=== PATIENT | male | born 1960 | race Caucasian/White ===

== ENCOUNTER → 2018-01-20 11:01 | Outpatient (CLI) | payer MEDICARE, MEDICAID, SELFPAY ==
[2018-01-20 11:34] LABS: Abs Immature Grans 0.06 k/cumm (0.0-0.09); Absolute Basophil Count 0.02 k/cumm (0.0-0.2); Absolute Eosinophil Count 0.53 k/cumm (0.0-0.7); Absolute Lymphocyte Count 3.17 k/cumm (1.2-3.4); Basophils % 0.2; Eosinophils % 6.5; HCT 49.5 % (40.0-50.0); HGB 16.5 g/dL (13.5-17.5); Immature Grans % 0.7; Lymphocytes % 38.8; Mean Corp. HGB Concentration 33.3 g/dL (32.0-36.0); Mean Corpuscular Hemoglobin 30.7 pg (27.0-33.0); Mean Corpuscular Volume 92.2 fL (80-95); Mean Platelet Volume 11.4 fL (8.0-11.0); Monocytes % 8.6; Neutrophils % 45.2; Platelet Count 180 x1000/uL (130-400); RBC 5.37 m/cumm (4.50-6.00); RBC Distribution Width 13.4 % (11.8-14.1); White Blood Cell Count 8.18 k/cumm (4.4-10.8)
== END ==
PROVIDERS: PCP Family Medicine; Visit Provider Nurse Practitioner Psychiatric/Mental Health
DX: F25.0 Schizoaffective disorder, bipolar type (principal); Z79.899 Other long term (current) drug therapy
CPT/HCPCS: 36415; 85025

== ENCOUNTER 2018-02-16 11:15 | Outpatient (CLI) | payer MEDICARE, MEDICAID, SELFPAY ==
[2018-02-16 11:35] LABS: Abs Immature Grans 0.03 k/cumm (0.0-0.09); Absolute Basophil Count 0.03 k/cumm (0.0-0.2); Absolute Eosinophil Count 0.48 k/cumm (0.0-0.7); Absolute Lymphocyte Count 2.72 k/cumm (1.2-3.4); Absolute Monocyte Count 0.62 k/cumm (0.11-0.7); Absolute Neutrophil Count 5.34 k/cumm (1.2-6.7); Basophils % 0.3; Eosinophils % 5.2; HCT 49.2 % (40.0-50.0); HGB 16.6 g/dL (13.5-17.5); Immature Grans % 0.3; Lymphocytes % 29.5; Mean Corp. HGB Concentration 33.7 g/dL (32.0-36.0); Mean Corpuscular Hemoglobin 31.6 pg (27.0-33.0); Mean Corpuscular Volume 93.5 fL (80-95); Mean Platelet Volume 11.5 fL (8.0-11.0); Monocytes % 6.7; Platelet Count 164 x1000/uL (130-400); RBC 5.26 m/cumm (4.50-6.00); RBC Distribution Width 13.6 % (11.8-14.1); White Blood Cell Count 9.22 k/cumm (4.4-10.8)
== END 2018-02-16 11:35 ==
PROVIDERS: PCP Family Medicine; Visit Provider Nurse Practitioner Psychiatric/Mental Health
DX: F25.0 Schizoaffective disorder, bipolar type (principal); Z79.899 Other long term (current) drug therapy
CPT/HCPCS: 36415; 85025

== ENCOUNTER 2018-03-22 12:44 | Outpatient (CLI) | payer MEDICARE, MEDICAID, SELFPAY ==
[2018-03-22 13:03] LABS: Abs Immature Grans 0.07 k/cumm (0.0-0.09); Absolute Basophil Count 0.03 k/cumm (0.0-0.2); Absolute Eosinophil Count 0.29 k/cumm (0.0-0.7); Absolute Lymphocyte Count 2.62 k/cumm (1.2-3.4); Absolute Monocyte Count 0.59 k/cumm (0.11-0.7); Absolute Neutrophil Count 3.21 k/cumm (1.2-6.7); Basophils % 0.4; Eosinophils % 4.3; HCT 48.1 % (40.0-50.0); HGB 16.4 g/dL (13.5-17.5); Lymphocytes % 38.5; Mean Corp. HGB Concentration 34.1 g/dL (32.0-36.0); Mean Corpuscular Volume 93.8 fL (80-95); Mean Platelet Volume 10.8 fL (8.0-11.0); Monocytes % 8.7; Neutrophils % 47.1; Platelet Count 164 x1000/uL (130-400); RBC 5.13 m/cumm (4.50-6.00); RBC Distribution Width 13.9 % (11.8-14.1); White Blood Cell Count 6.81 k/cumm (4.4-10.8)
[2018-03-22 13:19] LABS: VALPROIC ACID 71.3 ug/mL (50-100)
[2018-03-22 13:25] LABS: Hemoglobin A1C 6.3 % (4.5-6.2)
[2018-03-22 14:37] LABS: ALT 19 U/L (12-78); AST 16 U/L (15-37); Albumin 3.2 g/dL (3.4-5.0); Alkaline Phosphatase 65 U/L (46-116); Anion Gap 5.8 mmol/L (3-11); BUN 19 mg/dL (7-18); Bilirubin, Total 0.2 mg/dL (0.2-1.0); CO2 29.2 mmol/L (21.0-32.0); CREATININE 0.97 mg/dL (0.70-1.30); Calcium 8.8 mg/dL (8.5-10.1); Chloride 109 mmol/L (98-107); Cholesterol 150 mg/dL (50-200); Glucose 122 mg/dL (70-100); HDL Cholesterol 39 mg/dL (40-60); LDL CHOLESTEROL 92 mg/dL (<100); Potassium 4.4 mmol/L (3.5-5.1); Sodium 144 mmol/L (136-145); Total Protein 6.6 g/dL (6.4-8.2); Triglyceride 115 mg/dL (30-150)
== END 2018-03-22 13:04 ==
PROVIDERS: PCP Family Medicine; Visit Provider Nurse Practitioner Psychiatric/Mental Health
DX: F25.0 Schizoaffective disorder, bipolar type (principal); Z51.81 Encounter for therapeutic drug level monitoring; Z79.899 Other long term (current) drug therapy
CPT/HCPCS: 36415; 80053; 80061; 83721; 80164; 83036; 85025

== ENCOUNTER 2018-04-13 09:59 | Outpatient (CLI) | payer MEDICARE, MEDICAID, SELFPAY ==
[2018-04-13 10:23] LABS: Abs Immature Grans 0.09 k/cumm (0.0-0.09); Absolute Basophil Count 0.03 k/cumm (0.0-0.2); Absolute Eosinophil Count 0.29 k/cumm (0.0-0.7); Absolute Lymphocyte Count 3.11 k/cumm (1.2-3.4); Absolute Monocyte Count 0.82 k/cumm (0.11-0.7); Absolute Neutrophil Count 5.73 k/cumm (1.2-6.7); Basophils % 0.3; Eosinophils % 2.9; HCT 46.6 % (40.0-50.0); HGB 15.9 g/dL (13.5-17.5); Immature Grans % 0.9; Lymphocytes % 30.9; Mean Corp. HGB Concentration 34.1 g/dL (32.0-36.0); Mean Corpuscular Hemoglobin 31.8 pg (27.0-33.0); Mean Corpuscular Volume 93.2 fL (80-95); Mean Platelet Volume 11.1 fL (8.0-11.0); Monocytes % 8.1; Neutrophils % 56.9; Platelet Count 183 x1000/uL (130-400); RBC Distribution Width 13.6 % (11.8-14.1); White Blood Cell Count 10.07 k/cumm (4.4-10.8)
== END 2018-04-13 10:19 ==
PROVIDERS: PCP Family Medicine; Visit Provider Nurse Practitioner Psychiatric/Mental Health
DX: F25.0 Schizoaffective disorder, bipolar type (principal); Z79.899 Other long term (current) drug therapy
CPT/HCPCS: 36415; 85025

== ENCOUNTER 2018-05-11 13:11 | Outpatient (CLI) | payer MEDICARE, MEDICAID, SELFPAY ==
[2018-05-11 14:29] LABS: Abs Immature Grans 0.08 k/cumm (0.0-0.09); Absolute Basophil Count 0.02 k/cumm (0.0-0.2); Absolute Eosinophil Count 0.26 k/cumm (0.0-0.7); Absolute Lymphocyte Count 2.51 k/cumm (1.2-3.4); Absolute Monocyte Count 0.67 k/cumm (0.11-0.7); Absolute Neutrophil Count 4.64 k/cumm (1.2-6.7); Basophils % 0.2; Eosinophils % 3.2; HCT 47.6 % (40.0-50.0); Lymphocytes % 30.7; Mean Corp. HGB Concentration 33.6 g/dL (32.0-36.0); Mean Corpuscular Hemoglobin 31.7 pg (27.0-33.0); Mean Corpuscular Volume 94.4 fL (80-95); Mean Platelet Volume 12.1 fL (8.0-11.0); Monocytes % 8.2; Neutrophils % 56.7; Platelet Count 194 x1000/uL (130-400); RBC 5.04 m/cumm (4.50-6.00); RBC Distribution Width 13.6 % (11.8-14.1); White Blood Cell Count 8.18 k/cumm (4.4-10.8)
== END 2018-05-11 13:31 ==
PROVIDERS: PCP Family Medicine; Visit Provider Nurse Practitioner Psychiatric/Mental Health
DX: F25.0 Schizoaffective disorder, bipolar type (principal); Z79.899 Other long term (current) drug therapy
CPT/HCPCS: 36415; 85025

== ENCOUNTER 2018-06-15 13:22 | Outpatient (CLI) | payer MEDICARE, MEDICAID, SELFPAY ==
[2018-06-15 13:35] LABS: Abs Immature Grans 0.07 k/cumm (0.0-0.09); Absolute Basophil Count 0.03 k/cumm (0.0-0.2); Absolute Eosinophil Count 0.33 k/cumm (0.0-0.7); Absolute Lymphocyte Count 2.58 k/cumm (1.2-3.4); Absolute Monocyte Count 0.52 k/cumm (0.11-0.7); Absolute Neutrophil Count 3.75 k/cumm (1.2-6.7); Basophils % 0.4; Eosinophils % 4.5; Lymphocytes % 35.4; Mean Corpuscular Volume 94.2 fL (80-95); Mean Platelet Volume 11.1 fL (8.0-11.0); Monocytes % 7.1; Neutrophils % 51.6; Platelet Count 179 x1000/uL (130-400); RBC 5.31 m/cumm (4.50-6.00); RBC Distribution Width 13.1 % (11.8-14.1); White Blood Cell Count 7.28 k/cumm (4.4-10.8)
== END 2018-06-15 13:42 ==
PROVIDERS: PCP Family Medicine; Visit Provider Nurse Practitioner Psychiatric/Mental Health
DX: F25.0 Schizoaffective disorder, bipolar type (principal); Z79.899 Other long term (current) drug therapy
CPT/HCPCS: 36415; 85025

== ENCOUNTER 2018-07-19 11:26 | Outpatient (CLI) | payer MEDICARE, MEDICAID, SELFPAY ==
[2018-07-19 11:55] LABS: Abs Immature Grans 0.05 k/cumm (0.0-0.09); Absolute Basophil Count 0.03 k/cumm (0.0-0.2); Absolute Eosinophil Count 0.21 k/cumm (0.0-0.7); Absolute Lymphocyte Count 2.72 k/cumm (1.2-3.4); Absolute Monocyte Count 0.64 k/cumm (0.11-0.7); Absolute Neutrophil Count 5.31 k/cumm (1.2-6.7); Basophils % 0.3; Eosinophils % 2.3; HCT 49.9 % (40.0-50.0); HGB 16.6 g/dL (13.5-17.5); Immature Grans % 0.6; Lymphocytes % 30.4; Mean Corp. HGB Concentration 33.3 g/dL (32.0-36.0); Mean Corpuscular Hemoglobin 31.6 pg (27.0-33.0); Mean Corpuscular Volume 94.9 fL (80-95); Mean Platelet Volume 11.6 fL (8.0-11.0); Monocytes % 7.1; Neutrophils % 59.3; Platelet Count 158 x1000/uL (130-400); RBC 5.26 m/cumm (4.50-6.00); RBC Distribution Width 12.7 % (11.8-14.1); White Blood Cell Count 8.96 k/cumm (4.4-10.8)
== END 2018-07-19 11:46 ==
PROVIDERS: PCP Family Medicine; Visit Provider Nurse Practitioner Psychiatric/Mental Health
DX: F25.0 Schizoaffective disorder, bipolar type (principal); Z79.899 Other long term (current) drug therapy
CPT/HCPCS: 36415; 85025

== ENCOUNTER 2018-08-16 10:37 | Outpatient (CLI) | payer MEDICARE, MEDICAID, SELFPAY ==
[2018-08-16 11:28] LABS: Abs Immature Grans 0.07 k/cumm (0.0-0.09); Absolute Basophil Count 0.04 k/cumm (0.0-0.2); Absolute Eosinophil Count 0.35 k/cumm (0.0-0.7); Absolute Monocyte Count 0.56 k/cumm (0.11-0.7); Absolute Neutrophil Count 3.41 k/cumm (1.2-6.7); Basophils % 0.6; Eosinophils % 4.8; HCT 49.7 % (40.0-50.0); HGB 16.9 g/dL (13.5-17.5); Lymphocytes % 38.7; Mean Corpuscular Hemoglobin 31.8 pg (27.0-33.0); Mean Corpuscular Volume 93.6 fL (80-95); Mean Platelet Volume 11.5 fL (8.0-11.0); Monocytes % 7.7; Neutrophils % 47.2; Platelet Count 177 x1000/uL (130-400); RBC 5.31 m/cumm (4.50-6.00); RBC Distribution Width 12.9 % (11.8-14.1); White Blood Cell Count 7.23 k/cumm (4.4-10.8)
[2018-08-16 11:53] LABS: VALPROIC ACID 71.6 ug/mL (50-100)
== END 2018-08-16 10:57 ==
PROVIDERS: PCP Family Medicine; Visit Provider Nurse Practitioner Psychiatric/Mental Health
DX: F25.0 Schizoaffective disorder, bipolar type (principal); Z51.81 Encounter for therapeutic drug level monitoring; Z79.899 Other long term (current) drug therapy
CPT/HCPCS: 36415; 80164; 85025

== ENCOUNTER 2018-09-13 10:41 | Outpatient (CLI) | payer MEDICARE, MEDICAID, SELFPAY ==
[2018-09-13 12:16] LABS: Abs Immature Grans 0.08 k/cumm (0.0-0.09); Absolute Basophil Count 0.02 k/cumm (0.0-0.2); Absolute Eosinophil Count 0.38 k/cumm (0.0-0.7); Absolute Lymphocyte Count 2.75 k/cumm (1.2-3.4); Absolute Monocyte Count 0.85 k/cumm (0.11-0.7); Absolute Neutrophil Count 4.06 k/cumm (1.2-6.7); Basophils % 0.2; Eosinophils % 4.7; HCT 49.8 % (40.0-50.0); HGB 16.9 g/dL (13.5-17.5); Lymphocytes % 33.8; Mean Corp. HGB Concentration 33.9 g/dL (32.0-36.0); Mean Corpuscular Hemoglobin 31.4 pg (27.0-33.0); Mean Corpuscular Volume 92.4 fL (80-95); Mean Platelet Volume 12.2 fL (8.0-11.0); Monocytes % 10.4; Neutrophils % 49.9; Platelet Count 175 x1000/uL (130-400); RBC 5.39 m/cumm (4.50-6.00); RBC Distribution Width 12.7 % (11.8-14.1); White Blood Cell Count 8.14 k/cumm (4.4-10.8)
== END 2018-09-13 11:01 ==
PROVIDERS: PCP Family Medicine; Visit Provider Nurse Practitioner Psychiatric/Mental Health
DX: F25.0 Schizoaffective disorder, bipolar type (principal); Z79.899 Other long term (current) drug therapy
CPT/HCPCS: 36415; 85025

== ENCOUNTER 2018-10-19 12:54 | Outpatient (CLI) | payer MEDICARE, MEDICAID, SELFPAY ==
[2018-10-19 13:22] LABS: Abs Immature Grans 0.08 k/cumm (0.0-0.09); Absolute Basophil Count 0.03 k/cumm (0.0-0.2); Absolute Eosinophil Count 0.37 k/cumm (0.0-0.7); Absolute Lymphocyte Count 2.95 k/cumm (1.2-3.4); Absolute Monocyte Count 0.61 k/cumm (0.11-0.7); Absolute Neutrophil Count 2.89 k/cumm (1.2-6.7); Basophils % 0.4; Eosinophils % 5.3; HCT 49.5 % (40.0-50.0); Immature Grans % 1.2; Lymphocytes % 42.6; Mean Corp. HGB Concentration 34.3 g/dL (32.0-36.0); Mean Corpuscular Hemoglobin 31.7 pg (27.0-33.0); Mean Corpuscular Volume 92.4 fL (80-95); Mean Platelet Volume 11.8 fL (8.0-11.0); Monocytes % 8.8; Neutrophils % 41.7; Platelet Count 165 x1000/uL (130-400); RBC 5.36 m/cumm (4.50-6.00); RBC Distribution Width 12.6 % (11.8-14.1); White Blood Cell Count 6.93 k/cumm (4.4-10.8)
== END 2018-10-19 13:14 ==
PROVIDERS: Nurse Practitioner Psychiatric/Mental Health; PCP Family Medicine; Visit Provider Nurse Practitioner Psychiatric/Mental Health
DX: F25.0 Schizoaffective disorder, bipolar type (principal); Z79.899 Other long term (current) drug therapy
CPT/HCPCS: 36415; 85025

== ENCOUNTER 2018-12-07 09:39 | Outpatient (CLI) | payer MEDICARE, MEDICAID, SELFPAY ==
[2018-12-07 10:01] LABS: Abs Immature Grans 0.09 k/cumm (0.0-0.09); Absolute Basophil Count 0.02 k/cumm (0.0-0.2); Absolute Eosinophil Count 0.34 k/cumm (0.0-0.7); Absolute Lymphocyte Count 2.66 k/cumm (1.2-3.4); Absolute Monocyte Count 0.82 k/cumm (0.11-0.7); Absolute Neutrophil Count 3.44 k/cumm (1.2-6.7); Basophils % 0.3; Eosinophils % 4.6; HCT 49.6 % (40.0-50.0); HGB 17.6 g/dL (13.5-17.5); Immature Grans % 1.2; Lymphocytes % 36.1; Mean Corp. HGB Concentration 35.5 g/dL (32.0-36.0); Mean Corpuscular Hemoglobin 32.6 pg (27.0-33.0); Mean Corpuscular Volume 91.9 fL (80-95); Mean Platelet Volume 11.5 fL (8.0-11.0); Monocytes % 11.1; Neutrophils % 46.7; Platelet Count 171 x1000/uL (130-400); RBC Distribution Width 12.7 % (11.8-14.1); White Blood Cell Count 7.37 k/cumm (4.4-10.8)
== END 2018-12-07 09:59 ==
PROVIDERS: PCP Family Medicine; Visit Provider Nurse Practitioner Psychiatric/Mental Health
DX: F25.0 Schizoaffective disorder, bipolar type (principal); Z79.899 Other long term (current) drug therapy
CPT/HCPCS: 36415; 85025

== ENCOUNTER 2019-01-17 15:51 | Outpatient (CLI) | payer MEDICARE, MEDICAID, SELFPAY ==
[2019-01-17 16:35] LABS: Abs Immature Grans 0.08 k/cumm (0.0-0.09); Absolute Basophil Count 0.02 k/cumm (0.0-0.2); Absolute Eosinophil Count 0.24 k/cumm (0.0-0.7); Absolute Lymphocyte Count 2.58 k/cumm (1.2-3.4); Absolute Monocyte Count 0.69 k/cumm (0.11-0.7); Absolute Neutrophil Count 5.08 k/cumm (1.2-6.7); Basophils % 0.2; Eosinophils % 2.8; HCT 50.1 % (40.0-50.0); HGB 17.6 g/dL (13.5-17.5); Immature Grans % 0.9; Lymphocytes % 29.7; Mean Corp. HGB Concentration 35.1 g/dL (32.0-36.0); Mean Corpuscular Hemoglobin 31.9 pg (27.0-33.0); Mean Corpuscular Volume 90.8 fL (80-95); Mean Platelet Volume 11.6 fL (8.0-11.0); Monocytes % 7.9; Neutrophils % 58.5; Platelet Count 160 x1000/uL (130-400); RBC 5.52 m/cumm (4.50-6.00); RBC Distribution Width 12.8 % (11.8-14.1); White Blood Cell Count 8.69 k/cumm (4.4-10.8)
== END 2019-01-17 16:11 ==
PROVIDERS: PCP Family Medicine; Visit Provider Nurse Practitioner Psychiatric/Mental Health
DX: F25.0 Schizoaffective disorder, bipolar type (principal); Z79.899 Other long term (current) drug therapy
CPT/HCPCS: 36415; 85025

== ENCOUNTER 2019-02-25 15:51 | Outpatient (REF) | payer MEDICARE, MEDICAID, SELFPAY ==
[2019-02-25 19:16] LABS: TSH (W/Ref FT4) 1.35 uIU/mL (0.36-3.74)
[2019-02-25 19:17] LABS: Hemoglobin A1C 9.5 % (4.5-6.2)
[2019-02-25 19:55] LABS: COMMENT (LAB VIEW ONLY) 147.29 mg/dL; Microalb ug/mg Crea 5.8 ug/mg Cr
== END 2019-02-25 16:11 ==
LOC: NCHCN 15:51
PROVIDERS: PCP Family Medicine; Visit Provider Family Medicine
DX: E11.9 Type 2 diabetes mellitus without complications (principal); E03.9 Hypothyroidism, unspecified
CPT/HCPCS: 82043; 82570; 83036; 84443

== ENCOUNTER 2019-03-07 14:55 | Outpatient (CLI) | payer MEDICARE, MEDICAID, SELFPAY ==
[2019-03-07 15:47] LABS: Abs Immature Grans 0.06 k/cumm (0.0-0.09); Absolute Basophil Count 0.02 k/cumm (0.0-0.2); Absolute Eosinophil Count 0.24 k/cumm (0.0-0.7); Absolute Lymphocyte Count 2.95 k/cumm (1.2-3.4); Absolute Monocyte Count 0.68 k/cumm (0.11-0.7); Absolute Neutrophil Count 3.69 k/cumm (1.2-6.7); Basophils % 0.3; Eosinophils % 3.1; HCT 50.8 % (40.0-50.0); HGB 17.5 g/dL (13.5-17.5); Immature Grans % 0.8; Lymphocytes % 38.6; Mean Corp. HGB Concentration 34.4 g/dL (32.0-36.0); Mean Corpuscular Hemoglobin 31.5 pg (27.0-33.0); Mean Corpuscular Volume 91.4 fL (80-95); Mean Platelet Volume 12.1 fL (8.0-11.0); Monocytes % 8.9; Neutrophils % 48.3; Platelet Count 160 x1000/uL (130-400); RBC 5.56 m/cumm (4.50-6.00); RBC Distribution Width 12.7 % (11.8-14.1); White Blood Cell Count 7.64 k/cumm (4.4-10.8)
== END 2019-03-07 15:15 ==
PROVIDERS: PCP Family Medicine; Visit Provider Nurse Practitioner Psychiatric/Mental Health
DX: F25.0 Schizoaffective disorder, bipolar type (principal); Z79.899 Other long term (current) drug therapy
CPT/HCPCS: 36415; 85025

== ENCOUNTER 2019-03-27 12:17 | Emergency (ER) | payer MEDICARE, MEDICAID, SELFPAY ==
[2019-03-27 12:22] VITALS: BP 154/98; PULSE 108; RESP 16; TEMP 36.1; O2SAT 96
--- NOTE | 2019-03-27 12:29 | W.ED.GENAD ---
Discharge Plan Disposition Patient Disposition: HOME Condition: Improving Discharge Details Chief Complaint: Abd Prob Clinical Impression: Constipation Primary Care Provider: Nisha Carrillo ED Provider: Kelley Borges Home Meds and New Rx's Prescriptions: Continued Eliquis 5 MG tablet 5 mg PO BID Qty: 180 RF: 12 clozapine 100 MG tablet 100 mg PO TID RF: 0 aspirin 81 MG tablet,chewable 81 mg PO DAILY RF: 0 sennosides [senna] 8.6 MG tablet 8.6 mg PO BID 1 Days RF: 0 atorvastatin [Lipitor] 10 MG tablet 10 mg PO HS RF: 0 lisinopril 10 MG tablet 10 mg PO QAM RF: 0 divalproex 500 MG tablet extended release 24 hr 2,500 mg PO DAILY RF: 0 benztropine 1 MG tablet 1 mg PO BID RF: 0 thyroid (pork) [Orogrande Thyroid] 90 MG tablet 90 mg PO QAM RF: 0 melatonin 3 MG tablet extended release 3 mg PO HS RF: 0 Colace Clear 50 MG capsule 1 cap PO DAILY PRNRF: 0 Kristalose 20 GM packet 20 gm PO .QD PRN (Reason: Constipation) Qty: 3 RF: 0 ropinirole 1 mg Tablet 1 mg PO DAILY RF: 0 metformin 1,000 mg Tablet 1,000 mg PO BID RF: 0 albuterol sulfate [Ventolin HFA] 90 mcg/actuation Hfa Aerosol Inhaler INHALATION RF: 0 Discharge Instructions Instructions: Constipation (ED) Additional Instructions: Continue to drink plenty of fluids and eat plenty of fiber. Continue your [id number] medications that you have been using for constipation. Follow-up with your primary care doctor next week for reevaluation. Return to the emergency department with any worsening or new concerning symptoms. Discharge Data Discharge Date/Time-TO BE ENTERED AT DEPARTURE: 03/27/19 15:16 Discharge Physician: Kelley Borges Medical Decision Making 58-year-old male with history of obesity, bipolar disorder, schizophrenia diabetes with constipation and abdominal bloating for the past 10 days. Denied any fever, vomiting or abdominal pain. Abdomen soft but diffusely tender with hypoactive bowel sounds. Heart rate 100s. Afebrile. He appears nontoxic Patient was last seen here in August 2017 and intubated for sepsis in the setting of acute cholecystitis and altered mental status and had been transferred to [facility] for further care and cholecystectomy. We will do a rectal exam to look for fecal impaction. Considering patient's age and history, will check screening labs and CT abdomen and pelvis to rule out obstruction. Labs and imaging reviewed and unremarkable for acute findings. Normal white blood cell count, electrolytes. CT notes significant amount of stool burden but no fecal impaction or acute process. Patient was given a bedside enema and feels significant Justin better and is requesting to go home. Advised to continue his [id number] medications for constipation, increase his fluid and fiber intake and to follow-up with her primary care doctor for evaluation. He is advised to return here with any worsening or concerning symptoms. Medical Records Medical records reviewed: Yes I reviewed the patient's medical records. Imaging Data Radiologic Study: Radiologist's impression: CT ABDOMEN PELVIS W CLINICAL HISTORY: abd tenderness, constipation, h/o abd surgeries TECHNIQUE: CT examination of the abdomen and pelvis was performed with a bolus infusion of 125 cc of Omnipaque 350. COMPARISON: CHEST FOR PE, ABD PELVIS W from 08/20/2017 FINDINGS: Images through the lung bases show no acute process. Cardiac size mildly enlarged. Hepatic steatosis noted. Gallbladder non visualized and may be surgically absent. No biliary dilatation. Pancreas shows fatty atrophy but is otherwise unremarkable. Spleen is unremarkable. Adrenals and kidneys unremarkable. No abdominal or pelvic adenopathy. Abdominal aorta is of normal diameter and no major vascular abnormality is seen. Small bilateral fat inguinal hernias noted. No additional hernia seen. Appendix is normal. No evidence of diverticulitis or bowel obstruction. IMPRESSION: No evidence of acute intra-abdominal process. Hepatic steatosis noted. Lab Data Lab results reviewed: Yes I reviewed the patient's lab results. Labs: Laboratory Tests Range/Units 03/27/19 03/27/19 12:45 12:45 WBC (4.4-10.8) k/cumm 7.52 RBC (4.50-6.00) m/cumm 5.45 Hgb (13.5-17.5) g/dL 17.1 Hct (40.0-50.0) % 50.6 H MCV (80-95) fL 92.8 MCH (27.0-33.0) pg 31.4 MCHC (32.0-36.0) g/dL 33.8 RDW (11.8-14.1) % 13.0 Plt Count (130-400) x1000/uL 186 MPV (8.0-11.0) fL 11.5 H Immature Gran % 1.2 Neutrophils % 50.3 Lymphocytes % 36.3 Monocytes % 8.9 Eosinophils % 2.9 Basophils % 0.4 Absolute Neutrophils (1.2-6.7) k/cumm 3.78 Absolute Lymphocytes (1.2-3.4) k/cumm 2.73 Absolute Monocytes (0.11-0.7) k/cumm 0.67 Absolute Eosinophils (0.0-0.7) k/cumm 0.22 Absolute Basophils (0.0-0.2) k/cumm 0.03 Sodium (136-145) mmol/L 142 Potassium (3.5-5.1) mmol/L 4.3 Chloride (98-107) mmol/L 105 Carbon Dioxide (21.0-32.0) mmol/L 24.8 Anion Gap (3-11) mmol/L 12.2 H BUN (7-18) mg/dL 15 Creatinine (0.70-1.30) mg/dL 0.98 Estimated GFR/1.73 m2 (mL/min/1.73m2) >= 60.00 Glucose (70-100) mg/dL 168 H Calcium (8.5-10.1) mg/dL 8.9 Total Bilirubin (0.2-1.0) mg/dL 0.4 AST (15-37) U/L 17 ALT (16-63) U/L 21 Alkaline Phosphatase (46-116) U/L 62 Total Protein (6.4-8.2) g/dL 7.2 Albumin (3.4-5.0) g/dL 3.3 L HPI General Mode of arrival: ambulatory. Date/Time Provider Initiated Documentation: 03/27/19 12:18. Limitations to Documentation: no limitations. Information obtained by: patient. HPI Narrative: Patient is a 58-year-old male with a history of obesity, bipolar disorder, schizophrenia, diabetes and cholecystectomy who presents to the ED with complaint of constipation with the past 10 days. He also admits to abdominal bloating. He denies any fever, nausea, vomiting, urinary symptoms. He states he has tried suppositories, stool softeners, MiraLAX without any relief. Last suppository this morning. He states he called his PCP office and they advised him to come to the ER for an enema. He states he has had constipation in the past but never this long. He states his Depakote dose was increased recently but otherwise denies any new medications. Related Data Home Medications Medication Instructions Recorded Confirmed atorvastatin [Lipitor] 10 mg PO HS 01/23/16 03/27/19 benztropine 1 mg PO BID 01/23/16 01/22/17 divalproex 2,500 mg PO DAILY 01/23/16 03/27/19 lisinopril 10 mg PO QAM 01/23/16 03/27/19 melatonin 3 mg PO HS 01/23/16 03/27/19 thyroid (pork) [Orogrande Thyroid] 90 mg PO QAM 01/23/16 03/27/19 Colace Clear 1 cap PO DAILY PRN 01/05/17 03/27/19 Kristalose 20 gm PO .QD PRN #3 packet 01/05/17 01/22/17 Eliquis 5 mg PO BID #180 tab 07/20/17 03/27/19 aspirin 81 mg PO DAILY tab-cap 07/28/17 clozapine 100 mg PO TID tab-cap 07/28/17 03/27/19 sennosides [senna] 8.6 mg PO BID 1 Days 07/28/17 03/27/19 albuterol sulfate [Ventolin HFA] INHALATION 03/27/19 metformin 1,000 mg PO BID 03/27/19 03/27/19 ropinirole 1 mg PO DAILY 03/27/19 03/27/19 Previous Rx's Medication Instructions Recorded Kristalose 20 gm PO .QD PRN #3 packet 01/05/17 Eliquis 5 mg PO BID #180 tab 07/20/17 Allergies Allergy/AdvReac Type Severity Reaction Status Date / Time Penicillins AdvReac Intermediate black out Unverified 03/27/19 12:27 gabapentin AdvReac Mild Headache Unverified 03/27/19 12:27 niacin AdvReac Mild turn red Unverified 03/27/19 12:27 General Stated Complaint: Abd Prob MARY: 3 Review of Systems Review of Systems ROS Unobtainable: All systems reviewed & are unremarkable except as noted in HPI and below Constitutional Constitutional: Reports as per HPI, Denies chills and Denies fever(s) Eyes Eyes: Denies blurry vision ENT Ears, Nose, Mouth, and Throat: Denies dizziness, Denies sore throat and Denies throat swelling Cardiovascular Cardiovascular: Denies chest pain and Denies dyspnea Respiratory Respiratory: Denies cough and Denies dyspnea Gastrointestinal Gastrointestinal: Denies abdominal pain, Reports bloating, Reports constipation, Denies diarrhea and Denies vomiting Genitourinary Genitourinary: Denies hematuria and Denies dysuria Musculoskeletal Musculoskeletal: Denies back pain and Denies numbness Integumentary/Breasts Skin/Breast: Denies lesions and Denies rash Neurologic Neurologic: Denies dizziness, Denies focal weakness and Denies numbness Allergic/Immunologic Allergic/Immunologic: Denies throat swelling [facility] Medical History Bipolar disorder Chronic schizophrenia Diabetes mellitus, type 2 Obesity Surgical History Colonoscopy - MAC (01/25/16) 2011 Excision, Lipoma Hx of cholecystectomy (Chronic) Hydrocelectomy Tonsillectomy Family History Mother No problems noted. Father Heart disease Brother Alcohol abuse Social History Smoking/Tobacco Use Status: Current every day Drug use: Never Do you feel safe in your relationship?: Yes Exam Const General: cooperative, healthy appearing and no acute distress [facility] Head: normal to inspection Face and sinus: normal facial exam Eyes General: appearance normal, both eyes and all related structures EOM: EOM intact bilaterally Neck Neck: normal visual inspection and No submandibular swelling Lymphatic: no lymphadenopathy noted Chest Chest: normal inspection of the chest and no tenderness Resp Effort & Inspection: normal respiratory effort and able to speak in complete sentences Auscultation: clear to auscultation bilaterally Cardio Rate: regular rate Rhythm: regular rhythm GI Inspection: normal to inspection, no abdominal wall ecchymosis, non-distended and obesity Palpation: soft, not firm, not rigid and tender (diffuse, mild) Auscultation: hypoactive bowel sounds Skin General skin exam: no rashes or lesions noted Neuro General: alert, awake and oriented x3 Cognition: normal cognition Speech: speech normal Motor: muscle tone normal throughout Sensory Exam: no sensory deficits noted Extrem General: normal to inspection, full ROM, normal capillary refill, no calf tenderness bilaterally and no edema Psych Appearance: grossly normal Mental Status: mental status grossly normal Speech and Movement: speech and movement normal Affect: normal affect Course Vital Signs Vital signs: Vital Signs Temperature 97.0 F L 03/27/19 12:22 Pulse 108 H 03/27/19 12:22 Respiratory Rate 16 03/27/19 12:22 Blood Pressure 154/98 H 03/27/19 12:22 Pulse Oximetry 96 03/27/19 12:22 Temperature 97.0 F L 03/27/19 12:22 Pulse 108 H 03/27/19 12:22 Respiratory Rate 16 03/27/19 12:22 Blood Pressure 154/98 H 03/27/19 12:22 Pulse Oximetry 96 03/27/19 12:22 Oxygen Delivery Method Room Air 03/27/19 12:22 Oxygen Flow Rate 0 03/27/19 12:22 Pain Level 0 03/27/19 12:22
[2019-03-27] MEDS: Normal Saline 1,000 ML 1000 ML IV (12:45)
[2019-03-27 12:56] LABS: Abs Immature Grans 0.09 k/cumm (0.0-0.09); Absolute Basophil Count 0.03 k/cumm (0.0-0.2); Absolute Eosinophil Count 0.22 k/cumm (0.0-0.7); Absolute Lymphocyte Count 2.73 k/cumm (1.2-3.4); Absolute Monocyte Count 0.67 k/cumm (0.11-0.7); Absolute Neutrophil Count 3.78 k/cumm (1.2-6.7); Basophils % 0.4; Eosinophils % 2.9; HCT 50.6 % (40.0-50.0); HGB 17.1 g/dL (13.5-17.5); Immature Grans % 1.2; Lymphocytes % 36.3; Mean Corp. HGB Concentration 33.8 g/dL (32.0-36.0); Mean Corpuscular Hemoglobin 31.4 pg (27.0-33.0); Mean Corpuscular Volume 92.8 fL (80-95); Mean Platelet Volume 11.5 fL (8.0-11.0); Monocytes % 8.9; Neutrophils % 50.3; Platelet Count 186 x1000/uL (130-400); RBC 5.45 m/cumm (4.50-6.00); White Blood Cell Count 7.52 k/cumm (4.4-10.8)
[2019-03-27 13:04] LABS: ALT 21 U/L (16-63); AST 17 U/L (15-37); Albumin 3.3 g/dL (3.4-5.0); Alkaline Phosphatase 62 U/L (46-116); Anion Gap 12.2 mmol/L (3-11); BUN 15 mg/dL (7-18); Bilirubin, Total 0.4 mg/dL (0.2-1.0); CO2 24.8 mmol/L (21.0-32.0); CREATININE 0.98 mg/dL (0.70-1.30); Calcium 8.9 mg/dL (8.5-10.1); Chloride 105 mmol/L (98-107); Glucose 168 mg/dL (70-100); Potassium 4.3 mmol/L (3.5-5.1); Sodium 142 mmol/L (136-145); Total Protein 7.2 g/dL (6.4-8.2)
[2019-03-27] MEDS: Omnipaque 350 MG/ML 100 ML BTL IV (13:29)
[2019-03-27] MEDS: Normal Saline Flush 10 ML SYR IVP ×2 (13:38→14:06)
[2019-03-27] MEDS: Omnipaque 350 MG/ML 50 ML BTL IJ (13:39)
--- NOTE | 2019-03-27 13:40 | DI.CT_ITS ---
EXAM: CT ABDOMEN PELVIS W CLINICAL HISTORY: abd tenderness, constipation, h/o abd surgeries TECHNIQUE: CT examination of the abdomen and pelvis was performed with a bolus infusion of 125 cc of Omnipaque 350. COMPARISON: CHEST FOR PE, ABD PELVIS W from 08/20/2017 FINDINGS: Images through the lung bases show no acute process. Cardiac size mildly enlarged. Hepatic steatos is noted. Gallbladder non visualized and may be surgically absent. No biliary dilatation. Pancreas shows fatty atrophy but is otherwise unremarkable. Spleen is unremarkable. Adrenals and kidneys unr emarkable. No abdominal or pelvic adenopathy. Abdominal aorta is of normal diameter and no major va scular abnormality is seen. Small bilateral fat inguinal hernias noted. No additional hernia seen. Appendix is normal. No evidence of diverticulitis or bowel obstruction. IMPRESSION: No evidence of acute intra-abdominal process. Hepatic steatosis noted.
== END 2019-03-27 15:16 | disposition home or self-care (01) ==
PROVIDERS: Emergency Provider Physician Assistant; PCP Family Medicine
DX: K59.00 Constipation, unspecified (principal); E11.9 Type 2 diabetes mellitus without complications; Z79.84 Long term (current) use of oral hypoglycemic drugs
CPT/HCPCS: 36415; 80053; 96360; 96361; 99285; 74177; 85025; 99284; J3490; Q9967

== ENCOUNTER 2019-04-05 11:16 | Outpatient (CLI) | payer MEDICARE, MEDICAID, SELFPAY ==
[2019-04-05 11:42] LABS: Absolute Basophil Count 0.02 k/cumm (0.0-0.2); Absolute Eosinophil Count 0.18 k/cumm (0.0-0.7); Absolute Neutrophil Count 4.76 k/cumm (1.2-6.7); Basophils % 0.2; HGB 16.8 g/dL (13.5-17.5); Immature Grans % 1.1; Mean Corp. HGB Concentration 34.3 g/dL (32.0-36.0); Mean Corpuscular Hemoglobin 31.8 pg (27.0-33.0); Mean Corpuscular Volume 92.6 fL (80-95); Mean Platelet Volume 11.1 fL (8.0-11.0); Monocytes % 7.9; Neutrophils % 53.8; Platelet Count 182 x1000/uL (130-400); RBC 5.29 m/cumm (4.50-6.00); RBC Distribution Width 12.9 % (11.8-14.1); White Blood Cell Count 8.86 k/cumm (4.4-10.8)
== END 2019-04-05 11:36 ==
PROVIDERS: PCP Family Medicine; Visit Provider Nurse Practitioner Psychiatric/Mental Health
DX: F25.0 Schizoaffective disorder, bipolar type (principal); Z79.899 Other long term (current) drug therapy
CPT/HCPCS: 36415; 85025

== ENCOUNTER 2019-05-12 10:07 | Outpatient (CLI) | payer MEDICARE, MEDICAID, SELFPAY ==
[2019-05-12 10:36] LABS: Abs Immature Grans 0.05 k/cumm (0.0-0.09); Absolute Basophil Count 0.03 k/cumm (0.0-0.2); Absolute Eosinophil Count 0.31 k/cumm (0.0-0.7); Absolute Lymphocyte Count 2.49 k/cumm (1.2-3.4); Absolute Monocyte Count 0.66 k/cumm (0.11-0.7); Absolute Neutrophil Count 3.63 k/cumm (1.2-6.7); Basophils % 0.4; Eosinophils % 4.3; HCT 49.3 % (40.0-50.0); HGB 16.7 g/dL (13.5-17.5); Immature Grans % 0.7; Lymphocytes % 34.7; Mean Corp. HGB Concentration 33.9 g/dL (32.0-36.0); Mean Corpuscular Hemoglobin 31.3 pg (27.0-33.0); Mean Corpuscular Volume 92.3 fL (80-95); Mean Platelet Volume 10.9 fL (8.0-11.0); Monocytes % 9.2; Neutrophils % 50.7; Platelet Count 213 x1000/uL (130-400); RBC 5.34 m/cumm (4.50-6.00); White Blood Cell Count 7.17 k/cumm (4.4-10.8)
== END 2019-05-12 10:27 ==
PROVIDERS: PCP Family Medicine; Visit Provider Nurse Practitioner Psychiatric/Mental Health
DX: F25.0 Schizoaffective disorder, bipolar type (principal); Z79.899 Other long term (current) drug therapy
CPT/HCPCS: 36415; 85025

== ENCOUNTER 2019-06-14 12:43 | Outpatient (CLI) | payer MEDICARE, MEDICAID, SELFPAY ==
[2019-06-14 13:17] LABS: Abs Immature Grans 0.06 k/cumm (0.0-0.09); Absolute Basophil Count 0.03 k/cumm (0.0-0.2); Absolute Eosinophil Count 0.19 k/cumm (0.0-0.7); Absolute Lymphocyte Count 2.47 k/cumm (1.2-3.4); Absolute Monocyte Count 0.61 k/cumm (0.11-0.7); Absolute Neutrophil Count 4.64 k/cumm (1.2-6.7); Basophils % 0.4; Eosinophils % 2.4; HCT 47.6 % (40.0-50.0); HGB 16.3 g/dL (13.5-17.5); Immature Grans % 0.8 %; Lymphocytes % 30.9; Mean Corp. HGB Concentration 34.2 g/dL (32.0-36.0); Mean Corpuscular Hemoglobin 31.7 pg (27.0-33.0); Mean Corpuscular Volume 92.6 fL (80-95); Mean Platelet Volume 11.3 fL (8.0-11.0); Monocytes % 7.6; Neutrophils % 57.9; Platelet Count 218 x1000/uL (130-400); RBC 5.14 m/cumm (4.50-6.00)
[2019-06-14 13:32] LABS: VALPROIC ACID 58.9 ug/mL (50-100)
== END 2019-06-14 13:03 ==
PROVIDERS: PCP Family Medicine; Visit Provider Nurse Practitioner Psychiatric/Mental Health
DX: F25.0 Schizoaffective disorder, bipolar type (principal); Z79.899 Other long term (current) drug therapy; Z51.81 Encounter for therapeutic drug level monitoring
CPT/HCPCS: 36415; 80164; 85025

== ENCOUNTER 2019-06-28 18:30 | Emergency (ER) | payer MEDICARE, MEDICAID, SELFPAY ==
[2019-06-28 18:33] VITALS: BP 109/61; PULSE 113; RESP 27; TEMP 37.2; O2SAT 94
[2019-06-28 19:03] VITALS: O2SAT 88
[2019-06-28 19:06] VITALS: O2SAT 90
[2019-06-28 19:54] LABS: Abs Immature Grans 0.07 k/cumm (0.0-0.09); Absolute Basophil Count 0.02 k/cumm (0.0-0.2); Absolute Eosinophil Count 0.02 k/cumm (0.0-0.7); Absolute Lymphocyte Count 0.51 k/cumm (1.2-3.4); Absolute Monocyte Count 0.79 k/cumm (0.11-0.7); Absolute Neutrophil Count 6.31 k/cumm (1.2-6.7); Basophils % 0.3; Eosinophils % 0.3; HCT 47.4 % (40.0-50.0); Immature Grans % 0.9 %; Lymphocytes % 6.6; Mean Corp. HGB Concentration 33.8 g/dL (32.0-36.0); Mean Corpuscular Hemoglobin 31.1 pg (27.0-33.0); Mean Corpuscular Volume 92.2 fL (80-95); Mean Platelet Volume 12.4 fL (8.0-11.0); Monocytes % 10.2; Neutrophils % 81.7; Platelet Count 170 x1000/uL (130-400); RBC 5.14 m/cumm (4.50-6.00); White Blood Cell Count 7.72 k/cumm (4.4-10.8)
--- NOTE | 2019-06-28 19:59 | DI.RAD_ITS ---
EXAM: XR CHEST 2V PA LATERAL INDICATION: weakness, fever, cough. COMPARISON: CHEST 2 VIEWS PA,LAT from 10/12/2013 PORTABLE AP CHEST, POST LINE from 08/20/2017 TECHNIQUE: 2D digital imaging was performed. FINDINGS: There is cardiomegaly. There is prominence of the pulmonary vasculature. There are bilateral basila r infiltrates. Small bilateral pleural effusions are seen. There is underlying COPD. Degenerative c hanges are seen in the spine. IMPRESSION: 1. Findings suspicious for congestive heart failure. Small bilateral pleural effusions. 2. Bilateral basilar infiltrates.
[2019-06-28] MEDS: Normal Saline 500 ML IV (20:00)
[2019-06-28 20:12] LABS: ALT 31 U/L (16-63); AST 21 U/L (15-37); Albumin 3.5 g/dL (3.4-5.0); Alkaline Phosphatase 61 U/L (46-116); Anion Gap 11.8 mmol/L (3-11); BUN 12 mg/dL (7-18); Bilirubin, Total 0.4 mg/dL (0.2-1.0); CO2 25.2 mmol/L (21.0-32.0); CREATININE 1.17 mg/dL (0.70-1.30); Calcium 9.1 mg/dL (8.5-10.1); Chloride 101 mmol/L (98-107); Glucose 209 mg/dL (74-106); Lipase 40 U/L (73-393); Magnesium 1.4 mg/dL (1.8-2.4); Potassium 4.2 mmol/L (3.5-5.1); Sodium 138 mmol/L (136-145); Total Protein 7.2 g/dL (6.4-8.2)
--- NOTE | 2019-06-28 20:13 | DI.VRAD_ITS ---
PROCEDURE INFORMATION: Exam: XR Chest, 2 Views Exam date and time: 06/28/2019 8:09 PM Age: 58 years old Clinical indication: Cough and fever and other: Weakness; Patient HX: Weakness, fever and cough TECHNIQUE: Imaging protocol: XR of the chest Views: 2 views. COMPARISON: CR PORTABLE AP CHEST, POST LINE 20/08/2017 14:48 FINDINGS: Lungs: Pulmonary vascular congestion with central interstitial edema. Bibasilar infiltrates. Pleural space: Bilateral pleural effusions. Heart/Mediastinum: Marked cardiomegaly. Bones/joints: Multilevel degenerative changes of the thoracic spine. IMPRESSION: 1. Congestive heart failure. 2. Bibasilar infiltrates. 3. Bilateral pleural effusions. Dictated and Authenticated by: Rosemary Meier MD. Ordering:AMBERLY Hairston MD
[2019-06-28 20:15] LABS: Troponin I < 0.05 ng/Ml (<0.06)
--- NOTE | 2019-06-28 20:18 | ED.GENADUL_ITS ---
Discharge Plan Disposition Patient Disposition: AGAINST MEDICAL ADVICE Condition: Poor Discharge Details Chief Complaint: GenMedical Clinical Impression: CHF (congestive heart failure), Pneumonia Primary Care Provider: Nisha Carrillo ED Provider: Marika Vale Home Meds and New Rx's Prescriptions: No Action Eliquis 5 MG tablet 5 mg PO BID Qty: 180 RF: 12 clozapine 100 MG tablet 100 mg PO TID RF: 0 aspirin 81 MG tablet,chewable 81 mg PO DAILY RF: 0 sennosides [senna] 8.6 MG tablet 8.6 mg PO BID 1 Days RF: 0 atorvastatin [Lipitor] 10 MG tablet 10 mg PO HS RF: 0 lisinopril 10 MG tablet 10 mg PO QAM RF: 0 divalproex 500 MG tablet extended release 24 hr 2,500 mg PO DAILY RF: 0 benztropine 1 MG tablet 1 mg PO BID RF: 0 thyroid (pork) [[place] Thyroid] 90 MG tablet 90 mg PO QAM RF: 0 melatonin 3 MG tablet extended release 3 mg PO HS RF: 0 Colace Clear 50 MG capsule 1 cap PO DAILY PRNRF: 0 Kristalose 20 GM packet 20 gm PO .QD PRN (Reason: Constipation) Qty: 3 RF: 0 ropinirole 1 mg Tablet 1 mg PO DAILY RF: 0 metformin 1,000 mg Tablet 1,000 mg PO BID RF: 0 albuterol sulfate [Ventolin HFA] 90 mcg/actuation Hfa Aerosol Inhaler INHALATION RF: 0 Discharge Data Discharge Date/Time-TO BE ENTERED AT DEPARTURE: 06/28/19 21:15 Medical Decision Making Patient is 58-year-old male with history of bipolar, schizophrenia, type 2 diabetes, obesity, A. fib, anxiety, depression, presenting today with chief complaint of generalized weakness. Patient is a poor historian and is unclear when his symptoms began. He vaguely reports shortness of breath. States that h e has had intermittent cough but unclear when this began. Reports that he has had intermittent fever, I can unclear as to how long this is been going on. Does not sound that this is been in the last few days. Denies any chest pain. Is not feeling short of breath. Sounds like the weakness has began this morning. He reports that he was having difficulty getting out of a chair this afternoon. States that he slid to the floor and hit the back of his head against the floor. Did Not lose consciousness. Denies any headache. No focal neurologic deficits. He does not note any focal areas of weakness. Does report broken tooth. Unclear what caused this. Denies any recent changes medications. Endorses constipation. Reports that this is chronic and unchanged. On exam, patient is resting comfortably. However heart rate of 113. His lungs are clear. Oxygen is low at 94%. Abdomen is benign. Patient appears slightly dry but otherwise normal HEENT exam. No lower extremity edema. Primarily concern for possible pneumonia given his mild hypoxia, intermittent cough and subjective fevers. Plan for chest x-ray. Also consider possible cardiac etiology versus a pulmonary source. He is not having any pleuritic chest pain. No recent travel. Questioned customary risk factors for pulmonary embolism, none evidence, patient is chronically on Eliquis for his atrial fibrillation, states he has been taking his medications. Chest x-ray was reviewed by radiologist: FINDINGS: Lungs: Pulmonary vascular congestion with central interstitial edema. Bibasilar infiltrates. Pleural space: Bilateral pleural effusions. Heart/Mediastinum: Marked cardiomegaly. Bones/joints: Multilevel degenerative changes of the thoracic spine. IMPRESSION: 1. Congestive heart failure. 2. Bibasilar infiltrates. 3. Bilateral pleural effusions. Labs reviewed. No leukocytosis. BUN is normal at this patient GFR. Glucose is elevated at 209. Troponin is less than 0.05. BNP is elevated 800. Lipase within normal 11. Negative nitrate, negative leukocyte esterase in the urine. Patient does have 15 ketones. I discussed these findings with the patient. Advised that we should begin him on Lasix as well as antibiotic. Throughout his course here, patient is intermittently been requesting discharge. He has requested this multiple times of the transportation engineering technician. I would go in and discuss my concerns regarding his weakness and advised that he stay. I was able to have him be agreeable to do so. However, after discussing these findings, patient is requesting discharge. Patient's mentation is at his baseline. He seems clinically appropriate. He is well aware of the risk associated with his decision to departure. I advised admission initially and then offered treating his acute symptoms in the emerge ncy department with discharge later in the evening if this is what he requested. However, patient continues to request discharge at this time and reports that he will follow-up with his primary care provider tomorrow. He is aware that he may return anytime with new or worsening symptoms. W patient left AGAINST MEDICAL ADVICE. Patient is aware that his current pathology could be life threatening. HPI General Mode of arrival: EMS . Date/Time Provider Initiated Documentation: 06/28/19 19:13 . Limitations to Documentation: no limitations . Information obtained by: patient, EMS and RN notes reviewed . History of Present Illness 58 year old M presents to the emergency department with the chief complaint of generalized weakness, subjected fevers, constipation, described as moderate and similar to prior episodes, Quality is described as other (denies any pain), Patient started experiencing this day(s) and it has been intermittent. No relieving factors improve symptom(s), No exacerbating factors reported . Patient notes cough, fever/chills and other (reports chronic constipation, no change in urinary habits); denies confusion, chest guillermina n, diaphoresis, headaches, loss of appetite, nausea/vomiting, rash, shortness of breath and syncope. Patient did receive the following treatments prior to arrival, none Related Data Home Medications Medication Instructions Recorded Confirmed atorvastatin [Lipitor] 10 mg PO HS 01/23/16 06/28/19 benztropine 1 mg PO BID 01/23/16 06/28/19 divalproex 2,500 mg PO DAILY 01/23/16 03/27/19 lisinopril 10 mg PO QAM 01/23/16 06/28/19 melatonin 3 mg PO HS 01/23/16 06/28/19 thyroid (pork) [[place] Thyroid] 90 mg PO QAM 01/23/16 06/28/19 Colace Clear 1 cap PO DAILY PRN 01/05/17 06/28/19 Kristalose 20 gm PO .QD PRN #3 packet 01/05/17 06/28/19 Eliquis 5 mg PO BID #180 tab 07/20/17 06/28/19 aspirin 81 mg PO DAILY tab-cap 07/28/17 06/28/19 clozapine 100 mg PO TID tab-cap 07/28/17 06/28/19 sennosides [senna] 8.6 mg PO BID 1 Days 07/28/17 06/28/19 albuterol sulfate [Ventolin HFA] INHALATION 03/27/19 metformin 1,000 mg PO BID 03/27/19 06/28/19 ropinirole 1 mg PO DAILY 03/27/19 06/28/19 Previous Rx's Medication Instructions Recorded Kristalose 20 gm PO .QD PRN #3 packet 01/05/17 Eliquis 5 mg PO BID #180 tab 07/20/17 Allergies Allergy/AdvReac Type Severity Reaction Status Date / Time Penicillins AdvReac Intermediate black out Unverified 06/28/19 18:43 gabapentin AdvReac Mild Headache Unverified 06/28/19 18:43 niacin AdvReac Mild turn red Unverified 06/28/19 18:43 General Stated Complaint: GenMedical MARY: 3 Review of Systems Constitutional Constitutional: Reports as per HPI and Denies headache(s) Eyes Eyes: Reports as per HPI, Denies eye discharge and Denies irritation ENT Ears, Nose, Mouth, and Throat: Reports as per HPI and Denies headache(s) Cardiovascular Cardiovascular: Reports as per HPI, Denies chest pain and Denies dyspnea Respiratory Respiratory: Reports as per HPI and Denies dyspnea Gastrointestinal Gastrointestinal: Reports as per HPI, Denies abdominal pain, Denies change in bowel habits, Denies nausea and Denies vomiting Integumentary/Breasts Skin/Breast: Reports as per HPI and Denies rash Neurologic Neurologic: Reports as per HPI and Denies headache(s) FOR[facility]LY [facility], [facility] Medical History Bipolar disorder Chronic schizophrenia Diabetes mellitus, type 2 Obesity Surgical History Colonoscopy - MAC (01/25/16) 2011 Excision, Lipoma Hx of cholecystectomy (Chronic) Hydrocelectomy Tonsillectomy Social History Smoking/Tobacco Use Status: Current every day Tobacco Type: cigarettes Drug use: Never Do you feel safe in your relationship?: Yes Exam Const General: cooperative, comfortable, no acute distress, well developed, well groomed and ill appearing chronically Nutritional Appearance: well nourished and overweight Orientation: alert and awake HENID Head: normal to inspection, normocephalic and atraumatic Ears: hearing grossly normal bilaterally, external ears normal and TM's normal bilaterally General nose exam: external nose normal and nares normal Face and sinus: normal facial exam, sinuses nontender and face symmetric Mouth: oral mucosae normal, lip normal, tongue normal, oropharynx normal and moist mucous membranes Teeth and gingiva: abnormal dentition (broken #24 tooth) Throat: posterior oropharynx normal, tonsils normal and uvula midline Eyes General: appearance normal, both eyes and all related structures Neck Neck: normal visual inspection, full ROM, no lymphadenopathy and no meningeal signs Resp Effort & Inspection: normal respiratory effort, able to speak in complete sentences and no respiratory distress Auscultation: clear to auscultation bilaterally, no rales, no rhonchi and no wheezes Cardio Rate: regular rate Rhythm: regular rhythm Heart Sounds: S1 normal and S2 normal GI Inspection: normal to inspection and obesity Palpation: soft, no hepatosplenomegaly, no guarding, not rigid and nontender Auscultation: normal bowel sounds Back/Spine/Pelvis Back: no CVA tenderness Cervical Spine: normal cervical lordosis, No cervical muscular tenderness, No pain with cervical ROM, No cervical spasm, No cervical spinal tenderness and No step off deformity Thoracic/Lumbar Spine: thoracic and lumbar spine normal to inspection, No thoracic spinal tenderness and No lumbar spinal tenderness Pelvis: no pain with anterior-posterior compression and no pain with lateral compression Skin General skin exam: no rashes or lesions noted Neuro General: alert and awake Cognition: normal cognition Speech: speech normal Gait: normal gait Extrem General: no calf tenderness, normal gait and edema Laterality: bilateral Psych Appearance: grossly normal and well kempt Mental Status: mental status grossly normal Speech and Movement: speech and movement normal Course Vital Signs Vital signs: Vital Signs Temperature 37.2 C 06/28/19 18:33 Pulse 113 H 06/28/19 18:33 Respiratory Rate 27 H 06/28/19 18:33 Blood Pressure 109/61 06/28/19 18:33 Pulse Oximetry 94 L 06/28/19 18:33 Temperature 37.2 C 06/28/19 18:33 Temperature Source Skin 06/28/19 18:33 Pulse 113 H 06/28/19 18:33 Respiratory Rate 27 H 06/28/19 18:33 Respiratory Effort Non-Labored 06/28/19 19:55 Blood Pressure 109/61 06/28/19 18:33 Blood Pressure Position Supine 06/28/19 18:33 Pulse Oximetry 90 L 06/28/19 19:06 Oxygen Delivery Method Nasal Cannula 06/28/19 19:06 Oxygen Flow Rate 4 06/28/19 19:06 Pain Level 0 06/28/19 18:33 Lab/Test Results Lab/Test Results: Laboratory Tests Range/Units 06/28/19 06/28/19 19:00 19:00 WBC (4.4-10.8) k/cumm 7.72 RBC (4.50-6.00) m/cumm 5.14 Hgb (13.5-17.5) g/dL 16.0 Hct (40.0-50.0) % 47.4 MCV (80-95) fL 92.2 MCH (27.0-33.0) pg 31.1 MCHC (32.0-36.0) g/dL 33.8 RDW (11.8-14.1) % 13.0 Plt Count (130-400) x1000/uL 170 MPV (8.0-11.0) fL 12.4 H Immature Gran % % 0.9 Neutrophils % 81.7 Lymphocytes % 6.6 Monocytes % 10.2 Eosinophils % 0.3 Basophils % 0.3 Absolute Neutrophils (1.2-6.7) k/cumm 6.31 Absolute Lymphocytes (1.2-3.4) k/cumm 0.51 L Absolute Monocytes (0.11-0.7) k/cumm 0.79 H Absolute Eosinophils (0.0-0.7) k/cumm 0.02 Absolute Basophils (0.0-0.2) k/cumm 0.02 Sodium (136-145) mmol/L 138 Potassium (3.5-5.1) mmol/L 4.2 Chloride (98-107) mmol/L 101 Carbon Dioxide (21.0-32.0) mmol/L 25.2 Anion Gap (3-11) mmol/L 11.8 H BUN (7-18) mg/dL 12 Creatinine (0.70-1.30) mg/dL 1.17 Estimated GFR/1.73 m2 (mL/min/1.73m2) >= 60.00 Glucose (74-106) mg/dL 209 H Calcium (8.5-10.1) mg/dL 9.1 Magnesium (1.8-2.4) mg/dL 1.4 L Total Bilirubin (0.2-1.0) mg/dL 0.4 AST (15-37) U/L 21 ALT (16-63) U/L 31 Alkaline Phosphatase (46-116) U/L 61 Troponin I (<0.06) ng/Ml < 0.05 Total Protein (6.4-8.2) g/dL 7.2 Albumin (3.4-5.0) g/dL 3.5 Lipase (73-393) U/L 40
[2019-06-28 20:21] LABS: Bilirubin Small (Negative); Blood Trace-intact (Negative); Clarity Clear (Clear); Glucose 100 mg/dL (Negative); Ketones 15 mg/dL (Negative); Leukocyte Esterase Negative (Negative); Nitrite Negative (Negative); Specific Gravity 1.025 (1.005-1.025)
[2019-06-28 20:33] LABS: WBC 0-2 HPF (0-5)
[2019-06-28 20:34] LABS: C & S Indicated? No; Epithelial Cells Few HPF (Negative); Mucus Moderate (Negative)
[2019-06-28 20:49] LABS: NT-proBNP 806 pg/mL (<300)
== END 2019-06-28 21:15 | disposition left against medical advice (07) ==
LOC: ER 19:43
PROVIDERS: Emergency Provider Physician Assistant; PCP Family Medicine
DX: R09.02 Hypoxemia (principal); S02.5XXA Fracture of tooth (traumatic), initial encounter for closed fracture; W07.XXXA Fall from chair, initial encounter; E11.65 Type 2 diabetes mellitus with hyperglycemia; Z79.84 Long term (current) use of oral hypoglycemic drugs; Z53.29 Procedure and treatment not carried out because of patient's decision for other reasons
CPT/HCPCS: 80053; 83690; 93005; 96374; 99284; 71046; 81003; 81015; 83735; 83880; 84484; 85025; 93010

== ENCOUNTER 2019-07-21 11:59 | Outpatient (CLI) | payer MEDICARE, MEDICAID, SELFPAY ==
[2019-07-21 12:17] LABS: Abs Immature Grans 0.06 k/cumm (0.0-0.09); Absolute Basophil Count 0.02 k/cumm (0.0-0.2); Absolute Eosinophil Count 0.11 k/cumm (0.0-0.7); Absolute Lymphocyte Count 2.94 k/cumm (1.2-3.4); Absolute Monocyte Count 0.82 k/cumm (0.11-0.7); Absolute Neutrophil Count 5.23 k/cumm (1.2-6.7); Basophils % 0.2; Eosinophils % 1.2; HCT 48.9 % (40.0-50.0); HGB 16.5 g/dL (13.5-17.5); Immature Grans % 0.7 %; Mean Corp. HGB Concentration 33.7 g/dL (32.0-36.0); Mean Corpuscular Hemoglobin 31.3 pg (27.0-33.0); Mean Corpuscular Volume 92.8 fL (80-95); Mean Platelet Volume 11.5 fL (8.0-11.0); Monocytes % 8.9; Platelet Count 225 x1000/uL (130-400); RBC 5.27 m/cumm (4.50-6.00); RBC Distribution Width 13.1 % (11.8-14.1); White Blood Cell Count 9.18 k/cumm (4.4-10.8)
== END 2019-07-21 12:19 ==
PROVIDERS: PCP Family Medicine; Visit Provider Nurse Practitioner Psychiatric/Mental Health
DX: F25.0 Schizoaffective disorder, bipolar type (principal); Z79.899 Other long term (current) drug therapy
CPT/HCPCS: 36415; 85025

== ENCOUNTER 2019-08-23 11:18 | Outpatient (CLI) | payer MEDICARE, MEDICAID, SELFPAY ==
[2019-08-23 11:45] LABS: Abs Immature Grans 0.03 k/cumm (0.0-0.09); Absolute Basophil Count 0.03 k/cumm (0.0-0.2); Absolute Lymphocyte Count 2.63 k/cumm (1.2-3.4); Absolute Monocyte Count 0.68 k/cumm (0.11-0.7); Absolute Neutrophil Count 4.16 k/cumm (1.2-6.7); Basophils % 0.4; Eosinophils % 2.6; HCT 48.6 % (40.0-50.0); HGB 16.5 g/dL (13.5-17.5); Immature Grans % 0.4 %; Mean Corpuscular Hemoglobin 31.5 pg (27.0-33.0); Mean Corpuscular Volume 92.9 fL (80-95); Mean Platelet Volume 11.4 fL (8.0-11.0); Monocytes % 8.8; Neutrophils % 53.8; Platelet Count 222 x1000/uL (130-400); RBC 5.23 m/cumm (4.50-6.00); RBC Distribution Width 12.8 % (11.8-14.1); White Blood Cell Count 7.73 k/cumm (4.4-10.8)
== END 2019-08-23 11:38 ==
PROVIDERS: PCP Family Medicine; Visit Provider Nurse Practitioner Psychiatric/Mental Health
DX: F25.0 Schizoaffective disorder, bipolar type (principal); Z79.899 Other long term (current) drug therapy
CPT/HCPCS: 36415; 85025

== ENCOUNTER 2019-10-27 04:19 | Outpatient (CLI) | payer MEDICARE, MEDICAID, SELFPAY ==
[2019-10-27 10:40] LABS: Abs Immature Grans 0.06 k/cumm (0.0-0.09); Absolute Basophil Count 0.03 k/cumm (0.0-0.2); Absolute Eosinophil Count 0.43 k/cumm (0.0-0.7); Absolute Lymphocyte Count 2.77 k/cumm (1.2-3.4); Absolute Monocyte Count 0.71 k/cumm (0.11-0.7); Absolute Neutrophil Count 5.46 k/cumm (1.2-6.7); Basophils % 0.3; Eosinophils % 4.5; HCT 51.4 % (40.0-50.0); HGB 17.4 g/dL (13.5-17.5); Immature Grans % 0.6 %; Lymphocytes % 29.3; Mean Corp. HGB Concentration 33.9 g/dL (32.0-36.0); Mean Corpuscular Hemoglobin 31.1 pg (27.0-33.0); Mean Corpuscular Volume 91.9 fL (80-95); Mean Platelet Volume 11.4 fL (8.0-11.0); Monocytes % 7.5; Neutrophils % 57.8; Platelet Count 219 x1000/uL (130-400); RBC 5.59 m/cumm (4.50-6.00); RBC Distribution Width 13.1 % (11.8-14.1); White Blood Cell Count 9.46 k/cumm (4.4-10.8)
== END 2019-10-27 04:39 ==
PROVIDERS: PCP Family Medicine; Visit Provider Nurse Practitioner Psychiatric/Mental Health
DX: F25.0 Schizoaffective disorder, bipolar type (principal); Z79.899 Other long term (current) drug therapy
CPT/HCPCS: 36415; 85025

== ENCOUNTER 2019-12-01 02:34 | Outpatient (CLI) | payer MEDICARE, MEDICAID, SELFPAY ==
[2019-12-01 13:06] LABS: Abs Immature Grans 0.07 k/cumm (0.0-0.09); Absolute Basophil Count 0.02 k/cumm (0.0-0.2); Absolute Lymphocyte Count 2.99 k/cumm (1.2-3.4); Absolute Monocyte Count 0.77 k/cumm (0.11-0.7); Absolute Neutrophil Count 5.03 k/cumm (1.2-6.7); Basophils % 0.2; Eosinophils % 2.2; HCT 47.5 % (40.0-50.0); HGB 16.4 g/dL (13.5-17.5); Immature Grans % 0.8 %; Lymphocytes % 32.9; Mean Corp. HGB Concentration 34.5 g/dL (32.0-36.0); Mean Corpuscular Hemoglobin 31.4 pg (27.0-33.0); Mean Corpuscular Volume 90.8 fL (80-95); Mean Platelet Volume 10.9 fL (8.0-11.0); Monocytes % 8.5; Neutrophils % 55.4; Platelet Count 234 x1000/uL (130-400); RBC 5.23 m/cumm (4.50-6.00); RBC Distribution Width 12.9 % (11.8-14.1); White Blood Cell Count 9.08 k/cumm (4.4-10.8)
== END 2019-12-01 02:54 ==
PROVIDERS: PCP Family Medicine; Visit Provider Nurse Practitioner Psychiatric/Mental Health
DX: F25.0 Schizoaffective disorder, bipolar type (principal); Z79.899 Other long term (current) drug therapy
CPT/HCPCS: 36415; 85025

== ENCOUNTER 2019-12-29 01:48 | Outpatient (CLI) | payer MEDICARE, MEDICAID, SELFPAY ==
[2019-12-29 13:52] LABS: Abs Immature Grans 0.12 k/cumm (0.0-0.09); Absolute Basophil Count 0.03 k/cumm (0.0-0.2); Absolute Eosinophil Count 0.23 k/cumm (0.0-0.7); Absolute Neutrophil Count 4.98 k/cumm (1.2-6.7); Basophils % 0.3; Eosinophils % 2.6; HCT 45.8 % (40.0-50.0); HGB 15.5 g/dL (13.5-17.5); Immature Grans % 1.3 %; Lymphocytes % 32.4; Mean Corp. HGB Concentration 33.8 g/dL (32.0-36.0); Mean Corpuscular Hemoglobin 31.2 pg (27.0-33.0); Mean Corpuscular Volume 92.2 fL (80-95); Monocytes % 7.8; Neutrophils % 55.6; Platelet Count 246 x1000/uL (130-400); RBC 4.97 m/cumm (4.50-6.00); RBC Distribution Width 13.3 % (11.8-14.1); White Blood Cell Count 8.96 k/cumm (4.4-10.8)
== END 2019-12-29 02:08 ==
PROVIDERS: Nurse Practitioner Psychiatric/Mental Health; PCP Family Medicine; Visit Provider Nurse Practitioner Family
DX: F25.0 Schizoaffective disorder, bipolar type (principal); Z79.899 Other long term (current) drug therapy
CPT/HCPCS: 36415; 85025

== ENCOUNTER 2020-02-08 05:04 | Outpatient (CLI) | payer MEDICARE, MEDICAID, SELFPAY ==
[2020-02-08 11:12] LABS: Abs Immature Grans 0.07 10^3/uL (0.0-0.06); Absolute Basophil Count 0.05 10^3/uL (0.0-0.2); Absolute Eosinophil Count 0.16 10^3/uL (0.0-0.7); Absolute Lymphocyte Count 2.53 10^3/uL (1.2-3.4); Absolute Monocyte Count 0.88 10^3/uL (0.1-0.8); Absolute Neutrophil Count 6.75 10^3/uL (1.2-6.7); Basophils % 0.5; Eosinophils % 1.5; HCT 50.9 % (40.0-50.0); HGB 17.1 g/dL (13.5-17.5); Immature Grans % 0.7; Lymphocytes % 24.2; MCH 31.3 pg (27.0-33.0); MCHC 33.6 % (32.0-36.0); MCV 93.2 fL (80-95); MPV 11.4 fL (8.0-11.0); Monocytes % 8.4; Neutrophils % 64.7; Nucleated RBC 0 %; Platelet Count 214 10^3/uL (130-400); RBC 5.46 10^6/uL (4.36-5.78); RDW 12.6 % (11.8-14.1); RDW-SD 43.3 fL; WBC 10.44 10^3/uL (4.4-10.8)
== END 2020-02-08 05:24 ==
PROVIDERS: Nurse Practitioner Family; PCP Family Medicine; Visit Provider Nurse Practitioner Psychiatric/Mental Health
DX: F25.0 Schizoaffective disorder, bipolar type (principal); Z79.899 Other long term (current) drug therapy
CPT/HCPCS: 36415; 85025

== ENCOUNTER 2020-03-02 15:01 | Outpatient (REF) | payer MEDICARE, MEDICAID, SELFPAY ==
[2020-03-02 20:05] LABS: HCT 51.1 % (40.0-50.0); HGB 17.1 g/dL (13.5-17.5); MCHC 33.5 % (32.0-36.0); MCV 92.6 fL (80-95); MPV 12.3 fL (8.0-11.0); Platelet Count 206 10^3/uL (130-400); RBC 5.52 10^6/uL (4.36-5.78); RDW 12.3 % (11.8-14.1); RDW-SD 42.1 fL; WBC 7.54 10^3/uL (4.4-10.8)
[2020-03-02 20:23] LABS: ALT 36 U/L (16-63); AST 19 U/L (15-37); Albumin 3.5 g/dL (3.4-5.0); Alkaline Phosphatase 68 U/L (46-116); Anion Gap 12.9 mmol/L (3-11); BUN 17 mg/dL (7-18); Bilirubin, Total 0.3 mg/dL (0.2-1.0); CO2 23.1 mmol/L (21.0-32.0); Calcium 9.2 mg/dL (8.5-10.1); Chloride 104 mmol/L (98-107); Glucose 127 mg/dL (74-106); Potassium 4.5 mmol/L (3.5-5.1); Sodium 140 mmol/L (136-145); TSH (W/Ref FT4) 1.27 uIU/mL (0.36-3.74); Total Protein 7.1 g/dL (6.4-8.2)
== END 2020-03-02 15:21 ==
LOC: NCHCN 15:01
PROVIDERS: PCP Family Medicine; Visit Provider Family Medicine
DX: E03.9 Hypothyroidism, unspecified (principal); E11.9 Type 2 diabetes mellitus without complications; I10 Essential (primary) hypertension; K76.0 Fatty (change of) liver, not elsewhere classified
CPT/HCPCS: 80053; 85027; 84443

== ENCOUNTER 2020-03-06 02:52 | Outpatient (CLI) | payer MEDICARE, MEDICAID, SELFPAY ==
[2020-03-06 14:36] LABS: Abs Immature Grans 0.05 10^3/uL (0.0-0.06); Absolute Basophil Count 0.03 10^3/uL (0.0-0.2); Absolute Eosinophil Count 0.19 10^3/uL (0.0-0.7); Absolute Lymphocyte Count 3.24 10^3/uL (1.2-3.4); Absolute Monocyte Count 0.67 10^3/uL (0.1-0.8); Absolute Neutrophil Count 4.55 10^3/uL (1.2-6.7); Basophils % 0.3; Eosinophils % 2.2; HCT 48.6 % (40.0-50.0); HGB 16.4 g/dL (13.5-17.5); Immature Grans % 0.6; Lymphocytes % 37.1; MCH 31.1 pg (27.0-33.0); MCHC 33.7 % (32.0-36.0); MPV 11.4 fL (8.0-11.0); Monocytes % 7.7; Neutrophils % 52.1; Nucleated RBC 0 %; Platelet Count 206 10^3/uL (130-400); RBC 5.28 10^6/uL (4.36-5.78); RDW 12.4 % (11.8-14.1); RDW-SD 42.4 fL; WBC 8.73 10^3/uL (4.4-10.8)
== END 2020-03-06 03:12 ==
PROVIDERS: PCP Family Medicine; Visit Provider Nurse Practitioner Family
DX: F25.0 Schizoaffective disorder, bipolar type (principal); Z79.899 Other long term (current) drug therapy
CPT/HCPCS: 36415; 85025

== ENCOUNTER 2020-04-11 03:51 | Outpatient (CLI) | payer MEDICARE, MEDICAID, SELFPAY ==
[2020-04-11 12:49] LABS: Abs Immature Grans 0.04 10^3/uL (0.0-0.06); Absolute Basophil Count 0.05 10^3/uL (0.0-0.2); Absolute Eosinophil Count 0.17 10^3/uL (0.0-0.7); Absolute Lymphocyte Count 3.02 10^3/uL (1.2-3.4); Absolute Monocyte Count 0.62 10^3/uL (0.1-0.8); Absolute Neutrophil Count 4.45 10^3/uL (1.2-6.7); Basophils % 0.6; HCT 50.6 % (40.0-50.0); Immature Grans % 0.5; Lymphocytes % 36.2; MCH 31.1 pg (27.0-33.0); MCHC 33.6 % (32.0-36.0); MCV 92.5 fL (80-95); MPV 11.4 fL (8.0-11.0); Monocytes % 7.4; Neutrophils % 53.3; Nucleated RBC 0 %; Platelet Count 207 10^3/uL (130-400); RBC 5.47 10^6/uL (4.36-5.78); RDW 12.2 % (11.8-14.1); RDW-SD 41.9 fL; WBC 8.35 10^3/uL (4.4-10.8)
== END 2020-04-11 04:11 ==
PROVIDERS: PCP Family Medicine; Visit Provider Nurse Practitioner Psychiatric/Mental Health
DX: F25.0 Schizoaffective disorder, bipolar type (principal)
CPT/HCPCS: 36415; 85025

== ENCOUNTER 2020-04-21 21:03 | Emergency (ER) | payer MEDICARE, MEDICAID, SELFPAY ==
--- NOTE | 2020-04-21 21:00 | DI.CT_ITS ---
EXAM: CT HEAD CERVICAL SPINE WO COMPARISON: CT HEAD WITHOUT STROKE PROTOCOL from 08/20/2017 FINDINGS: CT examination of the cervical spine was performed without contrast administration. There is a moderate mid cervical kyphosis. There is multilevel disc space narrowing. There is minim al anterolisthesis of C4 on C5. There are moderate facet joint and endplate hypertrophic changes. There is no evidence of acute cervical spine fracture or dislocation. Intervertebral disc spaces are well maintained. Tracheolaryngeal structures appear intact. No cervical mass or adenopathy. Noncontrast cranial CT was performed. There is mild predominantly frontal cerebral atrophy. No evidence of acute intracranial hemorrhage, mass effect, or midline shift. No calvarial fracture. The orbital and temporal bone structures appear intact. Visualized mastoid air cells and paranasal sinuses appear clear. IMPRESSION: No evidence of acute cervical spine injury. No evidence of acute intracranial injury. RADIATION DOSE DELIVERED: 1,504.52mGy.cm Total DLP 1,504.52mGy.cm Total DLP DATA REPOSITORY: All CT scans at this facility are submitted to the National Radiology Data Registry (NRDR) Dose Index Registry (DIR) with the [employer] (A[employer]). RADIATION OPTIMIZATION: All CT scans at this facility use at least one of these dose optimization te chniques: automated exposure control; mA and/or kV adjustment per patient size (includes targeted exa ms where dose is matched to clinical indication); or iterative reconstruction.
[2020-04-21 21:04] VITALS: BP 123/77; PULSE 103; RESP 20; TEMP 36.6; O2SAT 97
--- NOTE | 2020-04-21 21:10 | W.ED.GENAD ---
Discharge Plan Disposition Patient Disposition: HOME Condition: Stable Discharge Details Clinical Impression: Fall, Blunt head trauma Primary Care Provider: Nisha Carrillo ED Provider: Germain Lambert Home Meds and New Rx's Prescriptions: Continued Eliquis 5 MG tablet 5 mg PO BID Qty: 180 RF: 12 clozapine 100 MG tablet 100 mg PO TID RF: 0 aspirin 81 MG tablet,chewable 81 mg PO DAILY RF: 0 sennosides [senna] 8.6 MG tablet 8.6 mg PO BID 1 Days RF: 0 atorvastatin [Lipitor] 10 MG tablet 10 mg PO HS RF: 0 lisinopril 10 MG tablet 10 mg PO QAM RF: 0 divalproex 500 MG tablet extended release 24 hr 2,500 mg PO DAILY RF: 0 benztropine 1 MG tablet 1 mg PO BID RF: 0 thyroid (pork) [[place] Thyroid] 90 MG tablet 90 mg PO QAM RF: 0 melatonin 3 MG tablet extended release 3 mg PO HS RF: 0 Colace Clear 50 MG capsule 1 cap PO DAILY PRNRF: 0 Kristalose 20 GM packet 20 gm PO .QD PRN (Reason: Constipation) Qty: 3 RF: 0 ropinirole 1 mg Tablet 1 mg PO DAILY RF: 0 metformin 1,000 mg Tablet 1,000 mg PO BID RF: 0 albuterol sulfate [Ventolin HFA] 90 mcg/actuation Hfa Aerosol Inhaler INHALATION RF: 0 Discharge Instructions Instructions: Fall Prevention (ED) Additional Instructions: if you have headaches or feel fatigued follow up with your primary care provider return to the emergency department for severe worsening of pain, if you feel more ill or have persistent vomit Medical Decision Making 59 yo male with hx of afib on eliquis comes in after a fall. He states he had two beers and two sips of a gloria and coke and was at a friends house. He exited the house and then stepping off the pavement lost his footing and fell hitting his head. Denies loc and denies any preceding symptoms to the falls, states he purely tripped. Arrives caox4 with clear speech and no focal deficits answering questions appropriately and not slurring words. HE has a small abrasion to the left forehead. Denies any head pain, neck pain, chest pain, back pain, abdominal pain and has full rom of the extremities. Suspect fall due to alcohol use but given he is on a blood thinner and has had alcohol will obtain ct head and c spine and monitor. labs and imaging unremarkable, mild increase in anion gap likelyfrom alcohol use and mild dehydration. He is walking unassisted with stable gait requesting d/c. No midline c spine pain with full rom, will d/c with return precautions Differential Diagnosis Differential Diagnosis: fall, alcohol intoxication, tbi Medical Records Medical records reviewed: Yes I reviewed the patient's medical records. Imaging Data Radiologic Study: Attestation: I personally reviewed and interpreted this imaging study as follows: Imaging: CT Scan Radiologist's impression: no acute findings Lab Data Lab results reviewed: Yes I reviewed the patient's lab results. HPI General Mode of arrival: ambulatory (with ems). Date/Time Provider Initiated Documentation: 04/21/20 21:10. Limitations to Documentation: no limitations. Information obtained by: patient. History of Present Illness 59 year old M presents to the emergency department with the chief complaint of fall, described as moderate, Patient started experiencing this hour(s) (1) and it has been constant. No relieving factors improve symptom(s), No exacerbating factors reported . Patient did receive the following treatments prior to arrival, none Related Data Home Medications Medication Instructions Recorded Confirmed atorvastatin [Lipitor] 10 mg PO HS 01/23/16 04/21/20 benztropine 1 mg PO BID 01/23/16 04/21/20 divalproex 2,500 mg PO DAILY 01/23/16 04/21/20 lisinopril 10 mg PO QAM 01/23/16 04/21/20 melatonin 3 mg PO HS 01/23/16 04/21/20 thyroid (pork) [[place] Thyroid] 90 mg PO QAM 01/23/16 04/21/20 Colace Clear 1 cap PO DAILY PRN 01/05/17 04/21/20 Kristalose 20 gm PO .QD PRN #3 packet 01/05/17 04/21/20 Eliquis 5 mg PO BID #180 tab 07/20/17 04/21/20 aspirin 81 mg PO DAILY tab-cap 07/28/17 04/21/20 clozapine 100 mg PO TID tab-cap 07/28/17 04/21/20 sennosides [senna] 8.6 mg PO BID 1 Days 07/28/17 04/21/20 albuterol sulfate [Ventolin HFA] INHALATION 03/27/19 metformin 1,000 mg PO BID 03/27/19 04/21/20 ropinirole 1 mg PO DAILY 03/27/19 06/28/19 Previous Rx's Medication Instructions Recorded Kristalose 20 gm PO .QD PRN #3 packet 01/05/17 Eliquis 5 mg PO BID #180 tab 07/20/17 Allergies Allergy/AdvReac Type Severity Reaction Status Date / Time Penicillins AdvReac Intermediate black out Unverified 04/21/20 21:13 gabapentin AdvReac Mild Headache Unverified 04/21/20 21:13 niacin AdvReac Mild turn red Unverified 04/21/20 21:13 General MARY: 3 Review of Systems All systems reviewed & are unremarkable except as noted in HPI and below Constitutional Constitutional: Denies chills, Denies fever(s) and Denies weakness Eyes Eyes: Denies loss of vision Cardiovascular Cardiovascular: Denies chest pain and Denies dyspnea Respiratory Respiratory: Denies cough and Denies dyspnea Gastrointestinal Gastrointestinal: Denies abdominal pain, Denies nausea and Denies vomiting Musculoskeletal Musculoskeletal: Denies joint swelling Neurologic Neurologic: Denies loss of vision and Denies weakness [facility] Medical History (Updated 04/21/20 @ 22:02 by Germain Lambert MD) Bipolar disorder Chronic schizophrenia Diabetes mellitus, type 2 Obesity Surgical History Colonoscopy - MAC (01/25/16) 2010 Excision, Lipoma Hx of cholecystectomy Hydrocelectomy Tonsillectomy Family History Mother No problems noted. Father Heart disease Brother Alcohol abuse Social History Smoking/Tobacco Use Status: Current every day Tobacco Type: cigarettes Smoking risk assessment performed?: Yes Drug use: Never Substance use type: does not use Details: States he drank tonight because it was his friends birthday Do you feel safe at home: Yes Do you feel safe in your relationship?: Yes Exam Const General: no acute distress Orientation: alert HENMT Head: no palpable skull fracture Ears: external ears normal General nose exam: external nose normal Mouth: moist mucous membranes Eyes General: appearance normal, both eyes and all related structures Neck Neck: normal visual inspection Resp Effort & Inspection: normal respiratory effort and able to speak in complete sentences Cardio Rate: regular rate Skin General skin exam: no rashes or lesions noted Neuro General: patient alert and patient oriented x3 Extrem General: normal to inspection Psych Mental Status: mental status grossly normal
[2020-04-21 21:38] LABS: Abs Immature Grans 0.09 10^3/uL (0.0-0.06); Absolute Basophil Count 0.04 10^3/uL (0.0-0.2); Absolute Eosinophil Count 0.21 10^3/uL (0.0-0.7); Absolute Lymphocyte Count 4.05 10^3/uL (1.2-3.4); Absolute Monocyte Count 0.61 10^3/uL (0.1-0.8); Absolute Neutrophil Count 4.74 10^3/uL (1.2-6.7); Basophils % 0.4; Eosinophils % 2.2; HCT 49.4 % (40.0-50.0); HGB 16.5 g/dL (13.5-17.5); Immature Grans % 0.9; Lymphocytes % 41.6; MCH 30.8 pg (27.0-33.0); MCHC 33.4 % (32.0-36.0); MCV 92.3 fL (80-95); MPV 11.5 fL (8.0-11.0); Monocytes % 6.3; Neutrophils % 48.6; Nucleated RBC 0 %; Platelet Count 215 10^3/uL (130-400); RBC 5.35 10^6/uL (4.36-5.78); RDW 12.3 % (11.8-14.1); RDW-SD 42.1 fL; WBC 9.74 10^3/uL (4.4-10.8)
[2020-04-21 21:51] LABS: ALT 31 U/L (16-63); AST 12 U/L (15-37); Albumin 3.6 g/dL (3.4-5.0); Alkaline Phosphatase 63 U/L (46-116); Anion Gap 15.9 mmol/L (3-11); BUN 14 mg/dL (7-18); Bilirubin, Total 0.3 mg/dL (0.2-1.0); CO2 21.1 mmol/L (21.0-32.0); CREATININE 1.14 mg/dL (0.70-1.30); Calcium 8.6 mg/dL (8.5-10.1); Chloride 101 mmol/L (98-107); ETHANOL BLOOD 42.5 mg/dL (<3); Glucose 186 mg/dL (74-106); Potassium 3.6 mmol/L (3.5-5.1); Sodium 138 mmol/L (136-145); Total Protein 7.2 g/dL (6.4-8.2)
[2020-04-21 21:52] LABS: PTT Activated 23.6 sec (21.0-27.5); Prothrombin Time 10.4 sec (9.3-11.0)
--- NOTE | 2020-04-21 22:09 | DI.VRAD_ITS ---
PROCEDURE INFORMATION: Exam: CT Head Without Contrast Exam date and time: 04/21/2020 9:01 PM Age: 59 years old Clinical indication: Injury or trauma; Blunt trauma (contusions or hematomas); Patient HX: Fall, intoxicated TECHNIQUE: Imaging protocol: Computed tomography of the head without contrast. COMPARISON: CT HEAD WITHOUT STROKE PROTOCOL 08/20/2017 1:26 PM FINDINGS: Brain: Normal. No hemorrhage. Unremarkable white matter. No mass effect. Cerebral ventricles: No ventriculomegaly. Bones/joints: Unremarkable. No acute fracture. Paranasal sinuses: 1.2 cm cyst or polyp suspected in right maxillary sinus. No fluid levels. Mastoid air cells: Visualized mastoid air cells are well aerated. Soft tissues: Unremarkable. IMPRESSION: 1. No acute intracranial abnormality. 2. Cyst or polyp suspected in right maxillary sinus, incompletely imaged. PROCEDURE INFORMATION: Exam: CT Cervical Spine Without Contrast Exam date and time: 04/21/2020 9:01 PM Age: 59 years old Clinical indication: Injury or trauma; Blunt trauma (contusions or hematomas); Patient HX: Fall, intoxicated TECHNIQUE: Imaging protocol: Computed tomography images of the cervical spine without contrast. COMPARISON: CT HEAD WITHOUT STROKE PROTOCOL 08/20/2017 1:26 PM FINDINGS: Bones/joints: No acute fracture. Mild anterior subluxation of C2, C3 and C4 on vertebral body below. Reversal of lordosis. Multilevel hypertrophic endplate degenerative changes. Discs/Spinal canal/Neural foramina: No significant disc protrusion. No severe spinal canal stenosis. No significant neural foraminal narrowing. Soft tissues: Unremarkable. Lungs: Lung apices are normal. IMPRESSION: 1. No acute fracture. 2. Multilevel mild anterior subluxations. 3. Multilevel degenerative changes. 4. Reversal of lordosis. Dictated and Authenticated by: Mars Addison MD. Ordering:AGUSTO Groves MD
[2020-04-21 22:20] VITALS: BP 100/52; PULSE 79; RESP 20; O2SAT 96
--- NOTE | 2020-04-21 22:20 | NUR.NOTE ---
Nursing Note: Patient has no one to come pick him up. Will call MARLENI. [id number]. Patient updated.
--- NOTE | 2020-04-21 23:46 | NUR.NOTE ---
Nursing Note: Ashley from [facility] doing patient eval. via Zoom. Patient remains uncooperative, not wearing a mask. let Liberty from know patient needed to wear a mask. Stated she is aware.
== END 2020-04-21 23:05 | disposition home or self-care (01) ==
PROVIDERS: Emergency Provider Emergency Medicine; PCP Family Medicine
DX: S00.81XA Abrasion of other part of head, initial encounter (principal); W10.1XXA Fall (on)(from) sidewalk curb, initial encounter; E86.0 Dehydration; Z79.01 Long term (current) use of anticoagulants; E11.9 Type 2 diabetes mellitus without complications; Z79.84 Long term (current) use of oral hypoglycemic drugs
CPT/HCPCS: 36415; 80053; 99284; 70450; 72125; 80320; 85025; 85610; 85730

== ENCOUNTER 2020-05-11 03:01 | Outpatient (CLI) | payer MEDICARE, MEDICAID, SELFPAY ==
[2020-05-11 12:27] LABS: Abs Immature Grans 0.08 10^3/uL (0.0-0.06); Absolute Basophil Count 0.05 10^3/uL (0.0-0.2); Absolute Eosinophil Count 0.29 10^3/uL (0.0-0.7); Absolute Lymphocyte Count 2.68 10^3/uL (1.2-3.4); Absolute Monocyte Count 0.52 10^3/uL (0.1-0.8); Absolute Neutrophil Count 3.81 10^3/uL (1.2-6.7); Basophils % 0.7; Eosinophils % 3.9; HCT 48.5 % (40.0-50.0); HGB 16.2 g/dL (13.5-17.5); Immature Grans % 1.1; Lymphocytes % 36.1; MCH 30.8 pg (27.0-33.0); MCHC 33.4 % (32.0-36.0); MCV 92.2 fL (80-95); MPV 11.8 fL (8.0-11.0); Neutrophils % 51.2; Nucleated RBC 0 %; Platelet Count 195 10^3/uL (130-400); RBC 5.26 10^6/uL (4.36-5.78); RDW 12.6 % (11.8-14.1); RDW-SD 42.5 fL; WBC 7.43 10^3/uL (4.4-10.8)
== END 2020-05-11 03:21 ==
PROVIDERS: PCP Family Medicine; Visit Provider Nurse Practitioner Family
DX: F25.0 Schizoaffective disorder, bipolar type (principal); Z79.899 Other long term (current) drug therapy
CPT/HCPCS: 36415; 85025

== ENCOUNTER 2020-06-12 12:18 | Outpatient (CLI) | payer MEDICARE, MEDICAID, SELFPAY ==
[2020-06-12 13:52] LABS: Abs Immature Grans 0.13 10^3/uL (0.0-0.06); Absolute Basophil Count 0.06 10^3/uL (0.0-0.2); Absolute Eosinophil Count 0.24 10^3/uL (0.0-0.7); Absolute Lymphocyte Count 2.67 10^3/uL (1.2-3.4); Absolute Monocyte Count 0.67 10^3/uL (0.1-0.8); Absolute Neutrophil Count 4.91 10^3/uL (1.2-6.7); Basophils % 0.7; Eosinophils % 2.8; HCT 48.9 % (40.0-50.0); HGB 16.3 g/dL (13.5-17.5); Immature Grans % 1.5; Lymphocytes % 30.8; MCH 31.5 pg (27.0-33.0); MCHC 33.3 % (32.0-36.0); MCV 94.4 fL (80-95); MPV 11.3 fL (8.0-11.0); Monocytes % 7.7; Neutrophils % 56.5; Nucleated RBC 0 %; Platelet Count 211 10^3/uL (130-400); RBC 5.18 10^6/uL (4.36-5.78); RDW 12.4 % (11.8-14.1); RDW-SD 42.9 fL; WBC 8.68 10^3/uL (4.4-10.8)
== END 2020-06-12 12:38 ==
PROVIDERS: Psychiatry & Neurology Psychiatry; PCP Family Medicine; Visit Provider Family Medicine
DX: F25.0 Schizoaffective disorder, bipolar type (principal); Z79.899 Other long term (current) drug therapy
CPT/HCPCS: 36415; 85025

== ENCOUNTER 2020-07-09 04:37 | Outpatient (CLI) | payer MEDICARE, MEDICAID, SELFPAY ==
[2020-07-09 10:58] LABS: Abs Immature Grans 0.09 10^3/uL (0.0-0.06); Absolute Basophil Count 0.06 10^3/uL (0.0-0.2); Absolute Eosinophil Count 0.21 10^3/uL (0.0-0.7); Absolute Lymphocyte Count 2.59 10^3/uL (1.2-3.4); Absolute Monocyte Count 0.74 10^3/uL (0.1-0.8); Absolute Neutrophil Count 5.44 10^3/uL (1.2-6.7); Basophils % 0.7; Eosinophils % 2.3; HCT 51.9 % (40.0-50.0); HGB 17.7 g/dL (13.5-17.5); Lymphocytes % 28.4; MCH 31.6 pg (27.0-33.0); MCHC 34.1 % (32.0-36.0); MCV 92.7 fL (80-95); MPV 11.2 fL (8.0-11.0); Monocytes % 8.1; Neutrophils % 59.5; Nucleated RBC 0 %; Platelet Count 215 10^3/uL (130-400); RDW 12.2 % (11.8-14.1); WBC 9.13 10^3/uL (4.4-10.8)
== END 2020-07-09 04:57 ==
PROVIDERS: Psychiatry & Neurology Psychiatry; PCP Family Medicine; Visit Provider Family Medicine
DX: F25.0 Schizoaffective disorder, bipolar type (principal); Z79.899 Other long term (current) drug therapy
CPT/HCPCS: 36415; 85025

== ENCOUNTER 2020-08-06 04:24 | Outpatient (CLI) | payer MEDICARE, MEDICAID, SELFPAY ==
[2020-08-06 11:37] LABS: Abs Immature Grans 0.06 10^3/uL (0.0-0.06); Absolute Basophil Count 0.04 10^3/uL (0.0-0.2); Absolute Eosinophil Count 0.12 10^3/uL (0.0-0.7); Absolute Lymphocyte Count 2.42 10^3/uL (1.2-3.4); Absolute Monocyte Count 0.61 10^3/uL (0.1-0.8); Absolute Neutrophil Count 6.32 10^3/uL (1.2-6.7); Basophils % 0.4; Eosinophils % 1.3; HCT 50.6 % (40.0-50.0); Immature Grans % 0.6; Lymphocytes % 25.3; MCHC 33.6 % (32.0-36.0); MCV 92.3 fL (80-95); MPV 10.8 fL (8.0-11.0); Monocytes % 6.4; Nucleated RBC 0 %; Platelet Count 213 10^3/uL (130-400); RBC 5.48 10^6/uL (4.36-5.78); RDW 12.2 % (11.8-14.1); RDW-SD 41.7 fL; WBC 9.57 10^3/uL (4.4-10.8)
== END 2020-08-06 04:25 | disposition home or self-care (01) ==
LOC: LBO 04:24
PROVIDERS: PCP Family Medicine; Visit Provider Psychiatry & Neurology Psychiatry
DX: F25.0 Schizoaffective disorder, bipolar type (principal); Z79.899 Other long term (current) drug therapy
CPT/HCPCS: 36415; 85025

== ENCOUNTER 2020-09-06 03:21 | Outpatient (CLI) | payer MEDICARE, MEDICAID, SELFPAY ==
[2020-09-06 10:34] LABS: Abs Immature Grans 0.08 10^3/uL (0.0-0.06); Absolute Basophil Count 0.06 10^3/uL (0.0-0.2); Absolute Eosinophil Count 0.26 10^3/uL (0.0-0.7); Absolute Lymphocyte Count 3.16 10^3/uL (1.2-3.4); Absolute Monocyte Count 0.73 10^3/uL (0.1-0.8); Basophils % 0.7; HCT 49.8 % (40.0-50.0); HGB 17.3 g/dL (13.5-17.5); Immature Grans % 0.9; Lymphocytes % 36.8; MCH 31.5 pg (27.0-33.0); MCHC 34.7 % (32.0-36.0); MCV 90.5 fL (80-95); MPV 11.5 fL (8.0-11.0); Monocytes % 8.5; Neutrophils % 50.1; Nucleated RBC 0 %; Platelet Count 222 10^3/uL (130-400); RDW 12.2 % (11.8-14.1); RDW-SD 40.5 fL; WBC 8.59 10^3/uL (4.4-10.8)
== END 2020-09-06 03:22 | disposition home or self-care (01) ==
LOC: LBO 03:21
PROVIDERS: PCP Family Medicine; Visit Provider Psychiatry & Neurology Psychiatry
DX: F25.0 Schizoaffective disorder, bipolar type (principal); Z79.899 Other long term (current) drug therapy
CPT/HCPCS: 36415; 85025

== ENCOUNTER 2020-09-28 03:00 | Outpatient (CLI) | payer MEDICARE, MEDICAID, SELFPAY ==
[2020-09-28 12:39] LABS: Abs Immature Grans 0.05 10^3/uL (0.0-0.06); Absolute Basophil Count 0.05 10^3/uL (0.0-0.2); Absolute Eosinophil Count 0.23 10^3/uL (0.0-0.7); Absolute Monocyte Count 0.66 10^3/uL (0.1-0.8); Absolute Neutrophil Count 5.17 10^3/uL (1.2-6.7); Basophils % 0.6; Eosinophils % 2.6; HGB 16.9 g/dL (13.5-17.5); Immature Grans % 0.6; Lymphocytes % 29.7; MCH 31.2 pg (27.0-33.0); MCHC 33.8 % (32.0-36.0); MCV 92.4 fL (80-95); MPV 11.3 fL (8.0-11.0); Monocytes % 7.5; Nucleated RBC 0 %; Platelet Count 212 10^3/uL (130-400); RBC 5.41 10^6/uL (4.36-5.78); RDW 12.1 % (11.8-14.1); RDW-SD 41.5 fL; WBC 8.76 10^3/uL (4.4-10.8)
== END 2020-09-28 03:01 | disposition home or self-care (01) ==
LOC: LBO 03:00
PROVIDERS: PCP Family Medicine; Visit Provider Psychiatry & Neurology Psychiatry
DX: F25.0 Schizoaffective disorder, bipolar type (principal); Z79.899 Other long term (current) drug therapy
CPT/HCPCS: 36415; 85025

== ENCOUNTER 2020-10-24 02:56 | Outpatient (CLI) | payer MEDICARE, MEDICAID, SELFPAY ==
[2020-10-24 13:50] LABS: Abs Immature Grans 0.05 10^3/uL (0.0-0.06); Absolute Basophil Count 0.05 10^3/uL (0.0-0.2); Absolute Monocyte Count 0.77 10^3/uL (0.1-0.8); Absolute Neutrophil Count 5.76 10^3/uL (1.2-6.7); Basophils % 0.5; HCT 51.2 % (40.0-50.0); HGB 17.6 g/dL (13.5-17.5); Immature Grans % 0.5; Lymphocytes % 32.6; MCH 31.7 pg (27.0-33.0); MCHC 34.4 % (32.0-36.0); MCV 92.1 fL (80-95); MPV 11.3 fL (8.0-11.0); Monocytes % 7.6; Neutrophils % 56.8; Nucleated RBC 0 %; Platelet Count 223 10^3/uL (130-400); RBC 5.56 10^6/uL (4.36-5.78); RDW 12.1 % (11.8-14.1); WBC 10.13 10^3/uL (4.4-10.8)
== END 2020-10-24 02:57 | disposition home or self-care (01) ==
LOC: LBO 02:56
PROVIDERS: PCP Family Medicine; Visit Provider Psychiatry & Neurology Psychiatry
DX: F25.0 Schizoaffective disorder, bipolar type (principal); Z79.899 Other long term (current) drug therapy
CPT/HCPCS: 36415; 85025

== ENCOUNTER 2020-11-13 15:21 | Inpatient (IN) | payer MEDICARE, MEDICAID, SELFPAY ==
[2020-11-13] VITALS (39 sets, daily range): BP systolic 98–129; BP diastolic 53–82; PULSE 89–116; RESP 16–54; TEMP 36.5–38; O2SAT 83–96
--- NOTE | 2020-11-13 15:15 | RT.EKG_ITS ---
APPROVED REPORT Exam: Resting ECG Reason for Exam: afib Patient Location: E HR:107 bpm ECG Measurements Heart Rate 107 AXIS FL [id number] P [id number] QRSd 94 QRS 74 QT 376 T 34 QTc 503 Conclusion Atrial fibrillation...V-rate 79-134, irreg A-activity Ventricular premature complex...V complex w/ short R-R interval Prolonged QT interval...QTc >500mS Physician: Rate 107, atrial fibrillation, no significant ST elevation or depression. Intermittent PV Cs. QT is 376, QTC is 503. QRS 94. No evidence of STEMI.
--- NOTE | 2020-11-13 15:15 | DI.CT_ITS ---
Exam(s) CT CHEST PE CTA EXAM: CT CHEST PE CTA CLINICAL HISTORY: syncope,tachy, sob, hypoxic. TECHNIQUE: Imaging Protocol: Axial CT angiography was performed with multi-slice acquisition and mu lti-planar and/or 3D reconstructions. CONTRAST MATERIAL: Intravenous: Omnipaque 350 Contrast volume:100 mL COMPARISON: CT CHEST FOR PE, ABD PELVIS W from 08/20/[address] ABDOMEN PELVIS W from 03/27/2019 FINDINGS: The examination is limited due to patient motion artifact. Tracheobronchial tree: Patent where visualized. Pulmonary parenchyma: No consolidation or dominant measurable mass. No architectural distortion. Scar atelectasis in the lung bases. Pulmonary Arteries: Evaluation of peripheral pulmonary embolic disease is severely limited due to the significant patient motion artifact. No central pulmonary embolus is identified. Mediastinum and Spring: No dominant adenopathy or fluid collection. Visualized thyroid gland: Unremarkable. Pleura: No effusion or pneumothorax. Heart: Cardiomegaly. Moderate coronary artery calcification. No pericardial effusion. Aorta: Thoracic aorta non-dilated. No evidence of dissection. Upper abdomen: Fatty liver. Soft tissues: Unremarkable. Bones: Normal. IMPRESSION: 1. Examination degraded by patient motion artifact. 2. No evidence of central pulmonary embolism, thoracic aortic dissection or aneurysm. 3. Hepatic steatosis. RADIATION DOSE DELIVERED: 644.6mGy.cm Total DLP DATA REPOSITORY: All CT scans at this facility are submitted to the National Radiology Data Registry (NRDR) Dose Index Registry (DIR) with the [employer] (A[employer]). RADIATION OPTIMIZATION: All CT scans at this facility use at least one of these dose optimization te chniques: automated exposure control; mA and/or kV adjustment per patient size (includes targeted exa ms where dose is matched to clinical indication); or iterative reconstruction.
--- NOTE | 2020-11-13 15:15 | DI.CT_ITS ---
Exam(s) CT HEAD WO EXAM: CT HEAD WO CLINICAL HISTORY: syncope. TECHNIQUE: Imaging Protocol: Axial computed tomography images with coronal and sagittal reformatted images were created and reviewed COMPARISON: CT CT HEAD CERVICAL SPINE WO from 04/21/2020 FINDINGS: Ventricles and Extra axial spaces: Normal in size and morphology for the patient's age. Hemorrhage: None. Cerebral parenchyma: No acute territorial infarct. There are areas of decreased attenuation in the w jose juan matter most consistent with chronic microvascular ischemic disease. Midline shift: None. Brainstem/Cerebellum: Normal. Calvarium: Normal. Visualized Paranasal sinuses/Mastoids: Clear. Soft Tissues: Unremarkable. IMPRESSION: No acute intracranial process. RADIATION DOSE DELIVERED: 863.18mGy.cm Total DLP DATA REPOSITORY: All CT scans at this facility are submitted to the National Radiology Data Registry (NRDR) Dose Index Registry (DIR) with the [employer] (ACR). RADIATION OPTIMIZATION: All CT scans at this facility use at least one of these dose optimization te chniques: automated exposure control; mA and/or kV adjustment per patient size (includes targeted exa ms where dose is matched to clinical indication); or iterative reconstruction.
--- NOTE | 2020-11-13 15:43 | W.ED.GENAD ---
Discharge Plan Disposition Patient Disposition: [facility] INPATIENT Condition: Good Discharge Details Clinical Impression: Syncope, Pneumonia, Non-ST elevation SD (NSTEMI), Dehydration Primary Care Provider: Nisha Carrillo ED Provider: Hermes Calderon Home Meds and New Rx's Prescriptions: No Action Eliquis 5 MG tablet 5 mg PO BID Qty: 180 RF: 12 clozapine 100 MG tablet 100 mg PO TID RF: 0 aspirin 81 MG tablet,chewable 81 mg PO DAILY RF: 0 sennosides [senna] 8.6 MG tablet 8.6 mg PO BID 1 Days RF: 0 atorvastatin [Lipitor] 10 MG tablet 10 mg PO HS RF: 0 divalproex 500 MG tablet extended release 24 hr 2,500 mg PO DAILY RF: 0 benztropine 1 MG tablet 1 mg PO BID RF: 0 thyroid (pork) [[place] Thyroid] 90 MG tablet 90 mg PO QAM RF: 0 melatonin 3 MG tablet extended release 3 mg PO HS RF: 0 Kristalose 20 GM packet 20 gm PO .QD PRN (Reason: Constipation) Qty: 3 RF: 0 ropinirole 1 mg Tablet 1 mg PO DAILY RF: 0 metformin 1,000 mg Tablet 1,000 mg PO BID RF: 0 albuterol sulfate [Ventolin HFA] 90 mcg/actuation Hfa Aerosol Inhaler INHALATION RF: 0 docusate sodium 100 mg capsule 200 mg PO BID RF: 0 lisinopril 5 mg tablet 5 mg PO DAILY RF: 0 Medical Decision Making This is a 59-year-old male with a past medical history of asthma, type 2 diabetes, atrial fibrillation on Eliquis, bipolar, schizophrenia, who presents today via EMS for syncope. Patient was walking along the street and was found on the ground passed out. He is a challenging historian secondary to his severe bipolar schizophrenia. He has no complaints, and does not add anything to the history at this time however EMS reports that he was found down on the road in the swell during heat. Temperature at that time was 101, the patient was diffusely sweaty. Heart rate was in the 190s A. fib, he was given 20 total of diltiazem, and also noted to be in the 80s for SPO2. He was started on supplemental oxygen and brought to the ER for further management. Patient's heart rate improved on his way here down to the low 100s. Blood glucose normal. No other additional historical components at this time. No other known factors. Physical exam demonstrates a diffusely sweaty male, no signs of overt trauma. No focal neurologic deficits. Lungs are notably clear. Patient is very terrified currently, out of his fear of being at the hospital. He seems to be acting somewhat near his baseline however it is difficult to get a good history from him secondary to his current concern and preoccupations. EMS had no additional historical components aside from what was noted in the HPI. At this time the patient is febrile, heart rate has gone down to 101 with 20 of diltiazem. Lungs are clear. My chief concern at this time is syncope secondary to heatstroke/hypothermia being out in the currently notably humid and hot weather. However infectious etiology is also on the differential. The patient is vaccinated for Covid. We will get a CTA to evaluate for potential PE, pneumonia, or other intrapulmonary process. We will add supplemental oxygen. We will gently rehydrate, will get blood cultures and UA, will monitor closely and reassess. The patient had no tongue biting, no micturition or defecation. Symptoms are inconsistent with seizure. 7:04 PM Patient's laboratory work-up is returned. White count is 16, moderate left shift. Lactate elevated at 4.2, electrolytes stable, anion gap high at 15.5. Creatinine 1.4. Initial troponin normal. Procalcitonin 0.1. Urinalysis shows ketones, bicarb is 22. The patient's temperature came down on its own with a fan and cooling. I feel that his initial fever was more so indicative of heatstroke/hyperthermia however there is certainly concern for infectious etiology. Especially with the elevated white count. CT scan shows no evidence of pulmonary embolism, he does have bibasilar atelectasis. Initial lung sounds were clear however now there appears to be a very small amount of crackles on reassessment. Patient does not show evidence of fluid overload at this time, and so I suspect in conjunction with labs fever that it may have been from an infectious etiology. We will give ceftriaxone and doxycycline. The patient certainly demonstrates a very mixed picture of environmental factors, potential infectious factors as well. However with the patient's episode of SVT that he had that was controlled with the diltiazem given by EMS, in conjunction with the evidence of pneumonia, in conjunction with his hypothermia, in conjunction with his bipolar/schizophrenia and overall clinical picture I do feel that he would benefit from inpatient admission. We will contact the hospitalist for admission. Of note he has he is VBG is unremarkable. Symptoms are inconsistent with DKA. Patient shows no signs of overt fluid overload at this time. Blood pressure stable, symptoms inconsistent with septic shock. 8:15 PM Repeat troponin demonstrates a mild elevation at 0.07. Repeat EKG continues to show no STEMI or significant changes. I did reach out to [facility] and discussed the case with them. I spoke with Dr. Hughes. He agrees that this is more of a demand ischemia picture and does not recommend heparinization or catheterization. We will give a full dose aspirin here. I discussed the case with the hospitalist Dr. Calderon, he agrees with the assessment and plan. Antibiotics of ceftriaxone and doxycycline have been started, he remains hemodynamically stable and appropriate for admission to the floor at this time. I have extensively reviewed the treatment plan and discharge instructions with the patient. I have addressed all patient concerns at this time. The patient was made aware of what symptoms to monitor for that would warrant a return to the emergency department. Discussed the plan with the patient, they demonstrate verbal understanding and agreement with our assessment and plan at this time. The documentation in this chart was dictated using [employer] dictation software. Please excuse any dictation errors. EKG 16: 41 Rate 107, atrial fibrillation, no significant ST elevation or depression. Intermittent PVCs. QT is 376, QTC is 503. QRS 94. No evidence of STEMI. EKG 18: 43 Rate 104, atrial fib, no significant ST elevation. Minimal flattening in V4. No evidence of STEMI. No significant changes from prior EKG earlier today FINDINGS: Limitations: Image quality is partially degraded by motion artifact. Pulmonary arteries: No large or central pulmonary embolism. Suboptimal evaluation of more peripheral arteries due to motion artifact. Aorta: Atherosclerotic disease of the aorta. No aneurysmal dilatation. Thyroid: Unremarkable. Lungs: Bibasilar opacities, favor atelectasis. Otherwise, no focal consolidation within the limitations of this motion degraded study. Pleural spaces: No pneumothorax. No pleural effusion. Heart: Mild cardiomegaly. Atherosclerotic calcifications of the coronary arteries. Lymph nodes: No suspicious lymphadenopathy. Liver: Hepatic steatosis. Bones/joints: No acute fracture. Degenerative changes. Soft tissues: Unremarkable. IMPRESSION: 1. Motion degraded study. No central pulmonary embolism. 2. Bibasilar atelectasis. 3. Coronary artery calcifications. 4. Hepatic steatosis. Thank you for allowing us to participate in the care of your patient. Dictated and Authenticated by: Lou Phipps MD 11/13/2020 6:25 PM Eastern Time ([place] & [place]) FINDINGS: Ventricles and Extra axial spaces: Normal in size and morphology for the patient's age. Hemorrhage: None. Cerebral parenchyma: No acute territorial infarct. There are areas of decreased attenuation in the white matter most consistent with chronic microvascular ischemic disease. Midline shift: None. Brainstem/Cerebellum: Normal. Calvarium: Normal. Visualized Paranasal sinuses/Mastoids: Clear. Soft Tissues: Unremarkable. IMPRESSION: No acute intracranial process. HPI General Date/Time Provider Initiated Documentation: 11/13/20 15:27. HPI Narrative: This is a 59-year-old male with a past medical history of asthma, type 2 diabetes, atrial fibrillation on Eliquis, bipolar, schizophrenia, who presents today via EMS for syncope. Patient was walking along the street and was found on the ground passed out. He is a challenging historian secondary to his severe bipolar schizophrenia. He has no complaints, and does not add anything to the history at this time however EMS reports that he was found down on the road in the swell during heat. Temperature at that time was 101, the patient was diffusely sweaty. Heart rate was in the 190s A. fib, he was given 20 total of diltiazem, and also noted to be in the 80s for SPO2. He was started on supplemental oxygen and brought to the ER for further management. Patient's heart rate improved on his way here down to the low 100s. Blood glucose normal. No other additional historical components at this time. No other known factors. Related Data Home Medications Medication Instructions Recorded Confirmed atorvastatin [Lipitor] 10 mg PO HS 01/23/16 04/21/20 benztropine 1 mg PO BID 01/23/16 04/21/20 divalproex 2,500 mg PO DAILY 01/23/16 11/13/20 melatonin 3 mg PO HS 01/23/16 11/13/20 thyroid (pork) [[place] Thyroid] 90 mg PO QAM 01/23/16 11/13/20 Kristalose 20 gm PO .QD PRN #3 packet 01/05/17 04/21/20 Eliquis 5 mg PO BID #180 tab 07/20/17 11/13/20 aspirin 81 mg PO DAILY tab-cap 07/28/17 04/21/20 clozapine 100 mg PO TID tab-cap 07/28/17 11/13/20 sennosides [senna] 8.6 mg PO BID 1 Days 07/28/17 11/13/20 albuterol sulfate [Ventolin HFA] INHALATION 03/27/19 metformin 1,000 mg PO BID 03/27/19 11/13/20 ropinirole 1 mg PO DAILY 03/27/19 11/13/20 docusate sodium 200 mg PO BID 11/13/20 11/13/20 lisinopril 5 mg PO DAILY 11/13/20 11/13/20 Previous Rx's Medication Instructions Recorded Kristalose 20 gm PO .QD PRN #3 packet 01/05/17 Eliquis 5 mg PO BID #180 tab 07/20/17 Allergies Allergy/AdvReac Type Severity Reaction Status Date / Time Penicillins AdvReac Intermediate black out Unverified 11/13/20 15:32 gabapentin AdvReac Mild Headache Unverified 11/13/20 15:32 niacin AdvReac Mild turn red Unverified 11/13/20 15:32 General Stated Complaint: Dizzy/Sync MARY: 2 Review of Systems All systems reviewed & are unremarkable except as noted in HPI and below PFSH Medical History (Updated 11/13/20 @ 20:21 by Hermes Calderon DO) Bipolar disorder Chronic schizophrenia Diabetes mellitus, type 2 Obesity Surgical History Colonoscopy - MAC (01/25/16) 2010 Excision, Lipoma Hx of cholecystectomy Hydrocelectomy Tonsillectomy Family History Mother No problems noted. Father Heart disease Brother Alcohol abuse Social History Smoking/Tobacco Use Status: Current every day Tobacco Type: cigarettes Smoking risk assessment performed?: Yes Drug use: Never Substance use type: does not use Do you feel safe at home: Yes Do you feel safe in your relationship?: Yes Exam Narrative Exam Narrative: 1.Const: Well-nourished, Well-developed, appearing stated age 2.Eyes: PERRL, no conjunctival injection, and symmetrical lids. 3.ENT: Atraumatic external nose and ears. Moist MM. Neck: Symmetric, trachea midline, No thyromegaly. There is no evidence of raccoon eyes, smart sign, CSF rhinorrhea, mastoid tenderness, cranial crepitus, hemotympanum, exophthalmos, or hyphema. Patient demonstrates intact dentition with no signs of tooth avulsion or fracture, no signs of jaw deformity, no evidence of a LeFort's fracture, with an intact palate, nose and orbital region. There is no evidence of a nasal septal hematoma. No proptosis. Jaw closes symmetrically. Airway is clear. No nuchal rigidity or nuchal tenderness. 4.CVS: +S1/S2, No murmurs or gallops. Peripheral pulses 2+ and equal in all extremities. Brisk capillary refill in all extremities. 5.RESP: Unlabored respiratory effort. Clear to auscultation bilaterally. No wheezes rales or rhonchi 6.GI: Soft, Nontender/Nondistended, No hepatosplenomegaly. No guarding or rebound. 7.MSK: Normocephalic/Atraumatic, Extremities w/o deformity or ttp No cyanosis or clubbing, Normal movement of all extremities, no gross deformities or discolorations or lesions. Tolerates full range of motion of extremities without tenderness. All compartments of upper and lower extremities are soft with no tenderness. Vascular exam demonstrates brisk capillary refill and intact pulses in all extremities. Pelvic exam demonstrates a stable pelvis, nontender to lateral compression and palpation of symphysis pubis.. No clinical evidence of significant musculoskeletal trauma. No midline cervical thoracic or lumbar spine tenderness. 8.Skin: Warm, Dry. No rashes or lesions. 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 Sensation grossly intact, no focal neurologic deficits. Patient moves all extremities well. No evidence of discoordination. 10.Psych: (AAO) x1, patient appears very scared and frightened at this time. Difficult to wright history secondary to his notable concern about being at the hospital. Course Vital Signs Vital signs: Vital Signs Temperature 38.0 C H 11/13/20 15:25 Pulse 116 H 11/13/20 15:25 Respiratory Rate 22 11/13/20 15:25 Blood Pressure 117/67 11/13/20 15:25 Pulse Oximetry 86 L 11/13/20 15:25 Temperature 38.0 C H 11/13/20 15:25 Temperature Source Oral 11/13/20 15:25 Pulse 116 H 11/13/20 15:25 Respiratory Rate 22 11/13/20 15:25 Respiratory Effort 11/13/20 15:30 Blood Pressure 117/67 11/13/20 15:25 Blood Pressure Position Supine 11/13/20 15:25 Pulse Oximetry 86 L 11/13/20 15:25 Oxygen Delivery Method Nasal Cannula 11/13/20 15:25 Oxygen Flow Rate 4 11/13/20 15:25 Pain Level 0 11/13/20 15:25 Lab/Test Results Lab/Test Results: 11/13/20 15:30 Blood Blood Culture - Pending 11/13/20 15:30 Blood Blood Culture - Pending
[2020-11-13 15:51] LABS: Abs Immature Grans 0.09 10^3/uL (0.0-0.06); Basophils % 0.3; HCT 52.1 % (40.0-50.0); HGB 17.2 g/dL (13.5-17.5); Immature Grans % 0.6; Lymphocytes % 6.6; MCH 31.2 pg (27.0-33.0); MCV 94.4 fL (80-95); MPV 11.5 fL (8.0-11.0); Monocytes % 5.6; Neutrophils % 86.9; Nucleated RBC 0 %; Platelet Count 203 10^3/uL (130-400); RBC 5.52 10^6/uL (4.36-5.78); RDW 12.5 % (11.8-14.1); RDW-SD 43.8 fL; WBC 15.25 10^3/uL (4.4-10.8)
[2020-11-13 15:52] LABS: Absolute Basophil Count 0.05 10^3/uL (0.0-0.2); Absolute Lymphocyte Count 1.01 10^3/uL (1.2-3.4); Absolute Monocyte Count 0.85 10^3/uL (0.1-0.8); Absolute Neutrophil Count 13.25 10^3/uL (1.2-6.7)
[2020-11-13 16:06] LABS: ALT 26 U/L (16-63); AST 13 U/L (15-37); Albumin 3.6 g/dL (3.4-5.0); Alkaline Phosphatase 66 U/L (46-116); Anion Gap 15.5 mmol/L (3-11); BUN 14 mg/dL (7-18); Bilirubin, Total 0.5 mg/dL (0.2-1.0); CO2 22.5 mmol/L (21.0-32.0); CREATININE 1.4 mg/dL (0.70-1.30); Calcium 9.3 mg/dL (8.5-10.1); Chloride 104 mmol/L (98-107); Estimated GFR 51.52 (mL/min/1.73m2); Glucose 224 mg/dL (74-106); Magnesium 1.6 mg/dL (1.8-2.4); Potassium 4.3 mmol/L (3.5-5.1); Sodium 142 mmol/L (136-145)
[2020-11-13 16:11] LABS: Troponin I < 0.05 ng/mL (<0.06)
[2020-11-13 16:22] LABS: Lactate 4.2 mmol/L (0.6-1.4)
[2020-11-13 16:24] LABS: INR 1.1 (0.9-1.1); PTT Activated 24.2 sec (21.0-27.5)
[2020-11-13 16:58] LABS: Procalcitonin 0.1 ng/mL
--- NOTE | 2020-11-13 17:14 | NUR.NOTE ---
Nursing Note: Shane Brown, friend for ride,
[2020-11-13 17:23] LABS: COVID-19 PCR Negative (Negative)
[2020-11-13] MEDS: Omnipaque 350 MG/ML 100 ML BTL IV (18:02)
[2020-11-13] MEDS: Normal Saline - Diluent 50 ML VIAL IV (18:02)
--- NOTE | 2020-11-13 18:03 | DI.VRAD_ITS ---
PROCEDURE INFORMATION: Exam: CT Head Without Contrast Exam date and time: 11/13/2020 3:28 PM Age: 59 years old Clinical indication: Other: Syncope TECHNIQUE: Imaging protocol: Computed tomography of the head without contrast. Radiation optimization: All CT scans at this facility use at least one of these dose optimization techniques: automated exposure control; mA and/or kV adjustment per patient size (includes targeted exams where dose is matched to clinical indication); or iterative reconstruction. COMPARISON: CT HEAD CERVICAL SPINE WO 04/21/2020 9:25 PM FINDINGS: Brain: No acute large territorial infarction or intracranial hemorrhage. Mild parenchymal volume loss and nonspecific white matter hypodensity, likely chronic microangiopathy. No mass effect or midline shift. Cerebral ventricles: No hydrocephalus. Paranasal sinuses: Visualized sinuses are unremarkable. No fluid levels. Mastoid air cells: Visualized mastoid air cells are well aerated. Vasculature: Intracranial atherosclerosis. Bones/joints: No displaced calvarial fracture. Soft tissues: Unremarkable. IMPRESSION: No acute intracranial abnormality. Dictated and Authenticated by: Lou Phipps MD. Ordering:CHINO Mirza MD
[2020-11-13 18:22] LABS: Bilirubin Small (Negative); Blood Trace-intact (Negative); Clarity Clear (Clear); Glucose Negative (Negative); Ketones 80 mg/dL (Negative); Leukocyte Esterase Negative (Negative); Nitrite Negative (Negative); Specific Gravity >= 1.030 (1.005-1.025)
--- NOTE | 2020-11-13 18:25 | DI.VRAD_ITS ---
PROCEDURE INFORMATION: Exam: CTA Chest With Contrast Exam date and time: 11/13/2020 5:52 PM Age: 59 years old Clinical indication: Other: Syncope, tachy, SOB, hypoxic; Additional info: Syncope, tachy, SOB, hypoxic, . motion due to PT unable to hold still TECHNIQUE: Imaging protocol: Computed tomographic angiography of the chest with contrast. 3D rendering (Not supervised by radiologist): MIP and/or 3D reconstructed images were created by the technologist. Radiation optimization: All CT scans at this facility use at least one of these dose optimization techniques: automated exposure control; mA and/or kV adjustment per patient size (includes targeted exams where dose is matched to clinical indication); or iterative reconstruction. Contrast material: OMNIPAQUE 350; Contrast volume: 100 ml; Contrast route: INTRAVENOUS (IV); COMPARISON: CT CHEST FOR PE, ABD PELVIS W 08/20/2017 3:46 PM FINDINGS: Limitations: Image quality is partially degraded by motion artifact. Pulmonary arteries: No large or central pulmonary embolism. Suboptimal evaluation of more peripheral arteries due to motion artifact. Aorta: Atherosclerotic disease of the aorta. No aneurysmal dilatation. Thyroid: Unremarkable. Lungs: Bibasilar opacities, favor atelectasis. Otherwise, no focal consolidation within the limitations of this motion degraded study. Pleural spaces: No pneumothorax. No pleural effusion. Heart: Mild cardiomegaly. Atherosclerotic calcifications of the coronary arteries. Lymph nodes: No suspicious lymphadenopathy. Liver: Hepatic steatosis. Bones/joints: No acute fracture. Degenerative changes. Soft tissues: Unremarkable. IMPRESSION: 1. Motion degraded study. No central pulmonary embolism. 2. Bibasilar atelectasis. 3. Coronary artery calcifications. 4. Hepatic steatosis. Dictated and Authenticated by: Lou Phipps MD. Ordering:CHINO Mirza MD
[2020-11-13 18:27] LABS: *AMPHETAMINES SCREEN URINE Negative (Negative); *BARBITURATES SCREEN URINE Negative (Negative); *BENZODIAZEPINES SCREEN URINE Negative (Negative); Cannabinoids THC Negative (Negative); Cocaine Screen,Urine Negative (Negative); METHADONE URINE SCREEN Negative (Negative); OPIATES URINE SCREEN Negative (Negative)
[2020-11-13 18:30] LABS: Tricyclic Antidepressants Negative (Negative)
--- NOTE | 2020-11-13 18:30 | RT.EKG_ITS ---
APPROVED REPORT Exam: Resting ECG Reason for Exam: syncope Patient Location: E HR:104 bpm ECG Measurements Heart Rate 104 AXIS OK [id number] P [id number] QRSd 88 QRS 84 QT 426 T 55 QTc 561 Conclusion Atrial fibrillation...V-rate 76-122, irreg A-activity Physician: Rate 104, atrial fib, no significant ST elevation. Minimal flattening in V4. No evidence of STEMI. No significant changes from prior EKG earlier today
[2020-11-13 18:33] LABS: Bacteria Negative HPF (Negative); C & S Indicated? No; Crystals Negative HPF (Negative); Epithelial Cells Negative HPF (Negative); Mucus Negative (Negative); Other Cells Negative (Negative); RBC Negative HPF (0-2); WBC 0-2 HPF (0-5)
[2020-11-13 19:15] LABS: Troponin I 0.07 ng/mL (<0.06)
[2020-11-13 19:35] LABS: BE (Venous) 1 mmol/L (-2-3); HCO3 (Venous) 26 mmol/L (23-28); O2 Sat (Venous) 92 %; TCO2 (Venous) 23 mmol/L (24-29); pCO2 (Venous) 44 mmHg (41-51); pH (Venous) 7.38 (7.31-7.41); pO2 (Venous) 60 mmHg
[2020-11-13] MEDS: cefTRIAXone 2 GM/50 ML BAG IVPB (19:46)
[2020-11-13] MEDS: DOXYCYCLINE 100 MG in Normal Saline 100 ML IVPB (19:46)
[2020-11-13] MEDS: MAGNESIUM SULFATE 2 GM/50 ML BAG IVPB (19:47)
--- NOTE | 2020-11-13 20:26 | HPE_ITS ---
Date of service: 11/13/20 Time of Service: 20:27 Assessment and Plan Assessment and plan (1) Non-ST elevation [place] (NSTEMI): Start date: 11/13/20 Status: Acute Assessment and plan: This is a 59-year-old gentleman brought to the ED after a syncopal episode and history concerning for cardiac, [place]. He was hyperthermic which responded to ambient air circulation and had BRENNEN with positive lactate and anion gap appearing dehydrated. He did have a small bump i n his troponin with the diagnosis of non-STEMI though this appears to be a type II non-STEMI. He is comfortable with a normal heart rate but continued atrial fibrillation. We will continue to trend his troponins and update echocardiogram with continuous conversation about possible transfer to tertiary care center if appropriate. Patient will be started on oral beta-neida for heart rate contro l with his chronic atrial fibrillation. He is already on statin and aspirin. Patient is a full code. (2) BRENNEN (acute kidney injury): Start date: 11/13/20 Status: Acute Assessment and plan: Patient has elevated creatinine from baseline and will be given IV fluids watching for fluid overload and we await updated echocardiogram. Follow-up labs in the morning. (3) Dehydration: Start date: 11/13/20 Status: Acute Assessment and plan: IV fluid resuscitation with follow-up labs. Recheck lactate and renal function to assure correction of positive anion gap. It appears patient may have lost more fluids than intake on a very hot day on the day of presentation. Patient is intact evaluated and will be treated with before meal and tests bedtime glucometer coverage with short acting insulin while hospitalized. (4) Hyperthermia associated with heat: Start date: 11/13/20 Status: Acute Assessment and plan: Patient temperature has corrected with ambient air circulation in the ED and there is no evidence of continued temperature rise. Patient does not have a possible pneumonia by imaging and will be covered with antibiotics treating a possible previous for pneumonia. Follow-up on cultures. (5) Syncope: Start date: 11/13/20 Status: Acute Assessment and plan: Syncopal episode was most likely secondary to dehydration and rapid ventricular response to current capital fibrillation with volume loss. He has responded to IV fluid resuscitation and cooling. Qualifiers: Encounter type: initial encounter Syncope type: heat syncope Qualified Code(s): T67.1XXA - Heat syncope, initial encounter (6) Pneumonia: Start date: 11/13/20 Status: Suspected Assessment and plan: Imaging in the ED suggested pneumonia with patient to be covered with Rocephin and doxycycline IV while hospitalized with follow-up imaging to guide therapy. Qualifiers: Laterality: bilateral Lung location: lower lobe of lung Pneumonia type: due to unspecified organism Qualified Code(s): J18.9 - Pneumonia, unspecified organism History of Present Illness History of Present Illness Chief Complaint: Syncope with elevated temperature Narrative: This is a 59-year-old male patient who was seen in the ED after a syncopal episode while walking in the streets of [place], [place] during the hottest part of the day. He was profusely sweaty and found to have hyperthermia and was transferred via EMS to the ED. He was found to have tachy cardia up to 190 range with a history of atrial fibrillation and was given diltiazem for a total of 20 mg in transport. Temperature was 101 ?F and his pulse oximeter was in the 80% range. In the ED the patient had a improved heart rate of just over 100 with continued chronic atrial fibrillation for which he was on treatment as an outpatient with Eliquis for anticoagulation. His body temperature was decreased by air movement with fans and he was resuscitated with IV fluids with heart rate improvement without further diltiazem. Patient does have chronic bipolar disease with schizophrenia. He has not complained of any chest pain or discomfort and is tolerating IV fluids since being brought up to [facility] for monitoring on telemetry. He did have an elevated troponin level initially being less than 0.05 and then rising to 0.08 with follow-up slightly increased at 0.09. Tertiary care facilities were called about his elevation in troponin possible non-STEMI and there were no transfer beds available. This did appear to be a type II non-STEMI secondary to his event with overheating. The patient had evidence of dehydration with BRENNEN with mildly elevated lactate and elevated anion gap which was treated with IV fluid resuscitation. Patient does have a history of echocardiogram in 2016 with preserved left ventricular ejection fraction. This needs to be updated. Patient was fairly n oncommunicative during my interview with his chronic psychiatric disease and had no active complaints sleeping on his side. Review of Systems Narrative: 13 point review of systems otherwise unrevealing or stable as allowed with patient being poor historian. [facility] Medical History (Updated 11/14/20 @ 17:53 by Julius Calderon) Bipolar disorder Chronic schizophrenia Diabetes mellitus, type 2 Obesity Surgical History Colonoscopy - MAC (01/25/16) 2010 Excision, Lipoma Hx of cholecystectomy Hydrocelectomy Tonsillectomy Family History Mother No problems noted. Father Heart disease Brother Alcohol abuse Social History Smoking/Tobacco Use Status: Current every day Tobacco Type: cigarettes Smoking risk assessment performed?: Yes Drug use: Never Substance use type: does not use Do you feel safe at home: Yes Do you feel safe in your relationship?: Yes Meds Allergies and Home Medications Allergies Allergy/AdvReac Type Severity Reaction Status Date / Time Penicillins AdvReac Intermediate black out Unverified 11/13/20 15:32 gabapentin AdvReac Mild Headache Unverified 11/13/20 15:32 niacin AdvReac Mild turn red Unverified 11/13/20 15:32 Home Medications Medication Instructions Recorded Confirmed Type atorvastatin [Lipitor] 10 mg PO HS 01/23/16 04/21/20 History benztropine 1 mg PO BID 01/23/16 04/21/20 History divalproex 2,000 mg PO HS 01/23/16 11/14/20 History melatonin 3 mg PO HS 01/23/16 11/13/20 History thyroid (pork) [[place]worth Thyroid] 90 mg PO QAM 01/23/16 11/13/20 History Kristalose 20 gm PO .QD PRN #3 packet 01/05/17 04/21/20 Rx Eliquis 5 mg PO BID #180 tab 07/20/17 11/13/20 Rx aspirin 81 mg PO DAILY tab-cap 07/28/17 04/21/20 History clozapine 300 mg PO HS tab-cap 07/28/17 11/14/20 History sennosides [senna] 8.6 mg PO BID 1 Days 07/28/17 11/13/20 History albuterol sulfate [Ventolin HFA] INHALATION 03/27/19 History metformin 1,000 mg PO BID 03/27/19 11/13/20 History ropinirole 1 mg PO DAILY 03/27/19 11/13/20 History docusate sodium 200 mg PO BID 11/13/20 11/13/20 History lisinopril 5 mg PO DAILY 11/13/20 11/13/20 History Exam Narrative Exam Narrative: General: Patient appears older than stated age, lying comfortably on her side sleeping with slightly dysarthric speech and minimal conversation when questioned. He appears alert and oriented to person and place. He is in no acute distress. HEENT: Normocephalic, coarsened facial features, eyes with pupils equal and reactive light symmetrically, extraocular movement intact and sclera anicteric. Oropharynx with dry mucosa. Neck: Supple without JVD. Lungs: Bronchovesicular breath sounds diffusely with slight expiratory wheeze and rhonchi. Fair aeration. No focalizing findings. Heart: Irregular irregular rhythm with no appreciable murmur or gallop. Abdomen: Obese contour, soft and nontender to palpation with no palpable hepatosplenomegaly. Genitalia/rectal: Exam deferred. Extremities: Chronic arthritic changes of the larger joints, no clubbing or cyanosis with nonpitting edema over lower extremities. Chronic skin changes over lower extremities. Peripheral pulses grossly intact. Skin: Pale, warm and dry. Neuro: Cranial nerves II through XII grossly intact, no focalizing motor deficits. Psych: Flattened affect with depressed mood, not manifested abnormal thought processes though patient has not always clear in conversation. Remote and recent memory not testable with patient being half-asleep and uncooperative with conversation. Results Imaging Imaging Studies: Exam: CT Head Without Contrast Exam date and time: 11/13/2020 3:28 PM Age: 59 years old Clinical indication: Other: Syncope COMPARISON: CT HEAD CERVICAL SPINE WO 04/21/2020 9:25 PM FINDINGS: Brain: No acute large territorial infarction or intracranial hemorrhage. Mild parenchymal volume loss and nonspecific white matter hypodensity, likely chronic microangiopathy. No mass effect or midline shift. Cerebral ventricles: No hydrocephalus. Paranasal sinuses: Visualized sinuses are unremarkable. No fluid levels. Mastoid air cells: Visualized mastoid air cells are well aerated. Vasculature: Intracranial atherosclerosis. Bones/joints: No displaced calvarial fracture. Soft tissues: Unremarkable. IMPRESSION: No acute intracranial abnormality. Exam: CTA Chest With Contrast Exam date and time: 11/13/2020 5:52 PM Age: 59 years old Clinical indication: Other: Syncope, tachy, SOB, hypoxic; Additional info: Syncope, tachy, SOB, hypoxic, . motion due to PT unable to hold still COMPARISON: CT CHEST FOR PE, ABD PELVIS W 08/20/2017 3:46 PM FINDINGS: Limitations: Image quality is partially degraded by motion artifact. Pulmonary arteries: No large or central pulmonary embolism. Suboptimal evaluation of more peripheral arteries due to motion artifact. Aorta: Atherosclerotic disease of the aorta. No aneurysmal dilatation. Thyroid: Unremarkable. Lungs: Bibasilar opacities, favor atelectasis. Otherwise, no focal consolidation within the limitations of this motion degraded study. Pleural spaces: No pneumothorax. No pleural effusion. Heart: Mild cardiomegaly. Atherosclerotic calcifications of the coronary arteries. Lymph nodes: No suspicious lymphadenopathy. Liver: Hepatic steatosis. Bones/joints: No acute fracture. Degenerative changes. Soft tissues: Unremarkable. IMPRESSION: 1. Motion degraded study. No central pulmonary embolism. 2. Bibasilar atelectasis. 3. Coronary artery calcifications. 4. Hepatic steatosis. Date of study: 02/19/2016 Transthoracic Echocardiography M-mode, complete 2D, complete spectral Doppler, and color Doppler Impressions: The patient was in atrial fibrillation throughout study. This rhythm can interfere with accurate global and segmental wall motion analysis. Summary: 1. Left ventricle: The cavity size was normal. Wall thickness was at the upper limits of normal. Systolic function was normal. The estimated ejection fraction was 60-65%. Wall motion was normal; there were no regional wall motion abnormalities. 2. Right ventricle: The cavity size was normal. Wall thickness was at the upper limits of normal. Systolic function was normal. 3. Left atrium: The atrium was moderately dilated. Labs Result diagrams: 11/14/20 06:40 11/14/20 06:40 Labs: Laboratory Results - last 24 hr 11/13/20 11/13/20 11/13/20 15:40 15:40 15:40 WBC 15.25 H RBC 5.52 Hgb 17.2 Hct 52.1 H MCV 94.4 MCH 31.2 MCHC 33.0 RDW 12.5 Plt Count 203 MPV 11.5 H Immature Gran % 0.6 Neutrophils % 86.9 Lymphocytes % 6.6 Monocytes % 5.6 Eosinophils % 0.0 Basophils % 0.3 Nucleated RBC % 0 Absolute Neutrophils 13.25 H Absolute Lymphocytes 1.01 L Absolute Monocytes 0.85 H Absolute Eosinophils 0.00 Absolute Basophils 0.05 PT 11.0 INR 1.1 APTT 24.2 VBG pH VBG pCO2 VBG pO2 VBG HCO3 VBG Total CO2 VBG O2 Saturation VBG Base Excess VBG Lactate Sodium 142 Potassium 4.3 Chloride 104 Carbon Dioxide 22.5 Anion Gap 15.5 H BUN 14 Creatinine 1.4 H Estimated GFR/1.73 m2 51.52 Glucose 224 H Calcium 9.3 Magnesium 1.6 L Total Bilirubin 0.5 AST 13 L ALT 26 Alkaline Phosphatase 66 Troponin I < 0.05 Total Protein 8.0 Albumin 3.6 Procalcitonin Urine Color Urine Clarity Urine pH Ur Specific [place] Urine Protein Urine Ketones Urine Blood Urine Nitrite Urine Bilirubin Urine Urobilinogen Ur Leukocyte Esterase Urine RBC Urine WBC Ur Epithelial Cells Urine Crystals Urine Bacteria Urine Casts Urine Mucus Urine Other Ur Culture Indicated? Urine Glucose Urine Opiates Screen Urine Methadone Screen Ur Barbiturates Screen Ur Tricyclics Screen Ur Amphetamines Screen U Benzodiazepines Scrn Urine Cocaine Screen Ur THC Screen COVID-19 Source SARS-CoV-2 (PCR) 11/13/20 11/13/20 11/13/20 15:40 15:55 16:00 WBC RBC Hgb Hct MCV MCH MCHC RDW Plt Count MPV Immature Gran % Neutrophils % Lymphocytes % Monocytes % Eosinophils % Basophils % Nucleated RBC % Absolute Neutrophils Absolute Lymphocytes Absolute Monocytes Absolute Eosinophils Absolute Basophils PT INR APTT VBG pH VBG pCO2 VBG pO2 VBG HCO3 VBG Total CO2 VBG O2 Saturation VBG Base Excess VBG Lactate 4.2 H* Sodium Potassium Chloride Carbon Dioxide Anion Gap BUN Creatinine Estimated GFR/1.73 m2 Glucose Calcium Magnesium Total Bilirubin AST ALT Alkaline Phosphatase Troponin I Total Protein Albumin Procalcitonin 0.1 Urine Color Urine Clarity Urine pH Ur Specific [place] Urine Protein Urine Ketones Urine Blood Urine Nitrite Urine Bilirubin Urine Urobilinogen Ur Leukocyte Esterase Urine RBC Urine WBC Ur Epithelial Cells Urine Crystals Urine Bacteria Urine Casts Urine Mucus Urine Other Ur Culture Indicated? Urine Glucose Urine Opiates Screen Urine Methadone Screen Ur Barbiturates Screen Ur Tricyclics Screen Ur Amphetamines Screen U Benzodiazepines Scrn Urine Cocaine Screen Ur THC Screen COVID-19 Source Nasopharyx SARS-CoV-2 (PCR) Negative 11/13/20 11/13/20 11/13/20 17:50 17:50 18:35 WBC RBC Hgb Hct MCV MCH MCHC RDW Plt Count MPV Immature Gran % Neutrophils % Lymphocytes % Monocytes % Eosinophils % Basophils % Nucleated RBC % Absolute Neutrophils Absolute Lymphocytes Absolute Monocytes Absolute Eosinophils Absolute Basophils PT INR APTT VBG pH VBG pCO2 VBG pO2 VBG HCO3 VBG Total CO2 VBG O2 Saturation VBG Base Excess VBG Lactate Sodium Potassium Chloride Carbon Dioxide Anion Gap BUN Creatinine Estimated GFR/1.73 m2 Glucose Calcium Magnesium Total Bilirubin AST ALT Alkaline Phosphatase Troponin I 0.07 H Total Protein Albumin Procalcitonin Urine Color [place] Urine Clarity Clear Urine pH 6.0 Ur Specific [place] >= 1.030 H Urine Protein 100 H Urine Ketones 80 H Urine Blood Trace-intact H Urine Nitrite Negative Urine Bilirubin Small H Urine Urobilinogen 1.0 H Ur Leukocyte Esterase Negative Urine RBC Negative Urine WBC 0-2 Ur Epithelial Cells Negative Urine Crystals Negative Urine Bacteria Negative Urine Casts 5-10 fine granular Urine Mucus Negative Urine Other Negative Ur Culture Indicated? No Urine Glucose Negative Urine Opiates Screen Negative Urine Methadone Screen Negative Ur Barbiturates Screen Negative Ur Tricyclics Screen Negative Ur Amphetamines Screen Negative U Benzodiazepines Scrn Negative Urine Cocaine Screen Negative Ur THC Screen Negative COVID-19 Source SARS-CoV-2 (PCR) 11/13/20 19:28 WBC RBC Hgb Hct MCV MCH MCHC RDW Plt Count MPV Immature Gran % Neutrophils % Lymphocytes % Monocytes % Eosinophils % Basophils % Nucleated RBC % Absolute Neutrophils Absolute Lymphocytes Absolute Monocytes Absolute Eosinophils Absolute Basophils PT INR APTT VBG pH 7.38 VBG pCO2 44 VBG pO2 60 VBG HCO3 26 VBG Total CO2 23 L VBG O2 Saturation 92 VBG Base Excess 1 VBG Lactate Sodium Potassium Chloride Carbon Dioxide Anion Gap BUN Creatinine Estimated GFR/1.73 m2 Glucose Calcium Magnesium Total Bilirubin AST ALT Alkaline Phosphatase Troponin I Total Protein Albumin Procalcitonin Urine Color Urine Clarity Urine pH Ur Specific [place] Urine Protein Urine Ketones Urine Blood Urine Nitrite Urine Bilirubin Urine Urobilinogen Ur Leukocyte Esterase Urine RBC Urine WBC Ur Epithelial Cells Urine Crystals Urine Bacteria Urine Casts Urine Mucus Urine Other Ur Culture Indicated? Urine Glucose Urine Opiates Screen Urine Methadone Screen Ur Barbiturates Screen Ur Tricyclics Screen Ur Amphetamines Screen U Benzodiazepines Scrn Urine Cocaine Screen Ur THC Screen COVID-19 Source SARS-CoV-2 (PCR) Last Vital Signs Temp 36.5 C 11/13/20 17:24 Pulse 97 H 11/13/20 17:16 Resp 33 H 11/13/20 20:00 BP 129/62 11/13/20 17:16 Pulse Ox 91 L 11/13/20 19:20 COVID-19 Screening Have you, or household traveled for leisure in last 14 days?: No Had IN PERSON contact w/suspected or confirmed C-19 person: No
[2020-11-13] MEDS: Aspirin 81 MG CHEW 324 MG CH (20:30)
[2020-11-13] MEDS: Normal Saline 1,000 ML 125 ML IV (23:04)
[2020-11-13] MEDS: Melatonin 3 MG TAB PO (23:26)
[2020-11-13] MEDS: rOPINIRole 0.5 MG TAB 1 MG PO (23:26)
[2020-11-13] MEDS: Insulin Aspart 300 UNITS/3 ML PEN SC (23:27)
[2020-11-13] MEDS: Atorvastatin 10 MG TAB 80 MG PO (23:32)
[2020-11-13 23:52] LABS: Troponin I 0.08 ng/mL (<0.06)
[2020-11-14] VITALS (12 sets, daily range): BP systolic 94–123; BP diastolic 62–82; PULSE 80–99; RESP 2–26; TEMP 36.1–37.5; O2SAT 84–95
--- NOTE | 2020-11-14 | DI.RAD_ITS ---
Exam(s) XR PORTABLE CHEST AP EXAM: XR PORTABLE CHEST AP CLINICAL HISTORY: shortness of breath, hypoxia TECHNIQUE: 2D digital imaging was performed. COMPARISON: No exams were available for comparison FINDINGS: MEDIASTINUM: Normal. HEART: Upper limits of normal in size. PULMONARY VASCULATURE: Normal. LUNGS: Linear infiltrates in the lung bases. No focal consolidating infiltrates. PLEURAL SPACE: No pleural effusion or pneumothorax. BONE:Within normal limits for the patient's age. OTHER FINDINGS:Normal. IMPRESSION: Bilateral basilar infiltrates. DATA REPOSITORY: RADIATION DOSE DELIVERED:
[2020-11-14] MEDS: Albuterol 2.5 MG/3 ML INH SOLN VIAL UPD ×4 (02:21→22:38)
[2020-11-14 02:53] LABS: Troponin I 0.09 ng/mL (<0.06)
[2020-11-14] MEDS: Thyroid 60 MG TAB 90 MG PO (06:37)
[2020-11-14 06:52] LABS: Lactate 1.2 mmol/L (0.6-1.4)
[2020-11-14 06:59] LABS: Abs Immature Grans 0.06 10^3/uL (0.0-0.06); Absolute Basophil Count 0.03 10^3/uL (0.0-0.2); Absolute Eosinophil Count 0.03 10^3/uL (0.0-0.7); Absolute Monocyte Count 1.13 10^3/uL (0.1-0.8); Absolute Neutrophil Count 8.26 10^3/uL (1.2-6.7); Basophils % 0.3; Eosinophils % 0.3; HCT 44.1 % (40.0-50.0); Immature Grans % 0.5; Lymphocytes % 12.8; MCH 30.9 pg (27.0-33.0); MCHC 33.3 % (32.0-36.0); MCV 92.6 fL (80-95); MPV 11.1 fL (8.0-11.0); Monocytes % 10.4; Neutrophils % 75.7; Nucleated RBC 0 %; Platelet Count 152 10^3/uL (130-400); RBC 4.76 10^6/uL (4.36-5.78); RDW 12.8 % (11.8-14.1); RDW-SD 43.5 fL; WBC 10.91 10^3/uL (4.4-10.8)
[2020-11-14 07:12] LABS: HGB 14.7 g/dL (13.5-17.5)
[2020-11-14 07:20] LABS: ALT 21 U/L (16-63); AST 13 U/L (15-37); Albumin 2.8 g/dL (3.4-5.0); Alkaline Phosphatase 49 U/L (46-116); Anion Gap 6.4 mmol/L (3-11); BUN 15 mg/dL (7-18); Bilirubin, Total 0.5 mg/dL (0.2-1.0); CO2 29.6 mmol/L (21.0-32.0); CREATININE 0.8 mg/dL (0.70-1.30); Calcium 8.4 mg/dL (8.5-10.1); Chloride 108 mmol/L (98-107); Glucose 138 mg/dL (74-106); Magnesium 2.1 mg/dL (1.8-2.4); Sodium 144 mmol/L (136-145); Total Protein 6.4 g/dL (6.4-8.2)
[2020-11-14] MEDS: Furosemide 20 MG/2 ML VIAL IVP (07:22)
[2020-11-14] MEDS: Normal Saline Flush 10 ML SYR ×5 (07:22→19:21)
[2020-11-14 07:26] LABS: Troponin I 0.07 ng/mL (<0.06)
[2020-11-14] MEDS: Aspirin 81 MG CHEW PO (08:27)
[2020-11-14] MEDS: Lisinopril 5 MG TAB PO (08:27)
[2020-11-14] MEDS: Apixaban 5 MG TAB PO ×2 (08:27→19:19)
[2020-11-14] MEDS: DOXYCYCLINE 100 MG in Normal Saline 100 ML IVPB ×2 (08:58→20:21)
[2020-11-14 10:36] LABS: Creatine Kinase 402 U/L (39-308)
--- NOTE | 2020-11-14 11:06 | INITIAL_ITS ---
- If Service Date Differs Date of service: 11/14/20 Time of Service: 11:06 Care Management Initial Assess REASON FOR HOSPITALIZATION:: NSTEMI, Hyperthermia with dehydration CAF PAST MEDICAL HISTORY/PAST SURGICAL HISTORY:: Medical History. Bipolar disorder. Chronic schizophrenia. Diabetes mellitus, type 2. Obesity. Surgical History. Colonoscopy - MAC (01/25/16). 2010. Excision, Lipoma. Hx of cholecystectomy. Hydrocelectomy. Tonsillectomy PREVIOUS FUNCTIONAL STATUS/SOCIAL/FAMILY SUPPORTS:: Judd lives in an apartment in [facility]. He is a [facility] [employer] client, and his pillowcase folder is Nessa Tapia. He has daily medication drops through [facility] [employer], but is independent with his ADL's. CURRENT FUNCTIONAL STATUS:: Judd was sitting up in bed when CM met with him. He reported that he prefers to be home, and is looking forward to possibly discharging home tomorrow. He would like CM to contact Nessa Tapia once he is ready for dishcarge in order to have his meds delivered in a timely manner. CM will continue to follow. ADVANCE DIRECTIVES:: On file, Chika Enamorado is listed as agent. Has patient been provided with info about the portal/API?: Yes Did the patient sign up for the portal?: No CODE STATUS:: Full Code INSURANCE COVERAGE / FINANCIAL ISSUES:: [facility]/ [place] CURRENT HOME/COMMUNITY SERVICES/EQUIPMENT:: Judd has support in the community through [facility], including medication management. PRIMARY CARE PHYSICIAN:: Nisha Carrillo POTENTIAL DISCHARGE NEEDS:: Follow up appointments. PATIENT/FAMILY EDUCATION NEEDS:: Review discharge instructions, discussion of self care needs including ask me three. ANTICIPATED BARRIERS TO DISCHARGE:: None identified. TRANSPORTATION:: Via private vehicle by Nessa Tapia, pillowcase folder, P[facility] [employer]. PLAN:: Anticipate Judd will return home when medically cleared. His pillowcase folder, Nessa, will drive him home via private vehicle. He will follow up with his PCP and discharge plan of care. CM will continue to follow.
--- NOTE | 2020-11-14 11:54 | W.PM.PROGNOT ---
Date of Service Date of service: 11/14/20 Time of Service: 11:55 Assessment and Plan Assessment and plan (1) Non-ST elevation [place] (NSTEMI): Status: Acute Assessment and plan: troponin peaked at 0.09 trending downward no chest pain echo unremarkable. consider stress testing outpatient and cardiology eval (2) BRENNEN (acute kidney injury): Status: Acute Assessment and plan: likely prerenal, received IV fluids overnight. avoid nephrotoxic drugs and renal dose as needed. (3) Hyperthermia associated with heat: Status: Acute Assessment and plan: temp normalized (4) Syncope: Status: Chronic Assessment and plan: routine work up telemetry, echo pending Qualifiers: Encounter type: initial encounter Syncope type: heat syncope Qualified Code(s): T67.1XXA - Heat syncope, initial encounter (5) Pneumonia: Status: Suspected Assessment and plan: patient with increased SOB and hypoxia, fluids on hold repeat CXR updrafts, increased oxygen requirements. procalcitonin 0.1 making bacterial pneumonia less likely continue ceftiaxone and doxycycline for now but low threshold to d/c received lasix with improvement in respiratory distress BNP elevated at 2500 monitor I&O discussed with DR Hickman Qualifiers: Laterality: bilateral Lung location: lower lobe of lung Pneumonia type: due to unspecified organism Qualified Code(s): J18.9 - Pneumonia, unspecified organism Subjective Subjective Patient reports: tolerating liquids well, tolerating a regular diet and shortness of breath Exam Const General: cooperative, acute distress moderate and respiratory and ill appearing chronically Nutritional Appearance: obese Orientation: alert, awake and oriented x3 Resp Effort & Inspection: cough and respiratory distress Auscultation: rhonchi (course throughout) Cardio Rate: regular rate GI Inspection: normal to inspection Palpation: soft Auscultation: normal bowel sounds Skin General skin exam: no rashes or lesions noted Neuro General: patient alert, patient awake and patient oriented x3 Speech: speech normal Objective Last Vital Signs Temp 36.4 C L 11/14/20 10:55 Pulse 81 11/14/20 10:55 Resp 20 11/14/20 10:55 BP 103/72 11/14/20 10:55 Pulse Ox 84 L 11/14/20 11:30 Laboratory Results - last 24 hr 11/13/20 11/13/20 11/13/20 15:40 15:40 15:40 WBC 15.25 H RBC 5.52 Hgb 17.2 Hct 52.1 H MCV 94.4 MCH 31.2 MCHC 33.0 RDW 12.5 Plt Count 203 MPV 11.5 H Immature Gran % 0.6 Neutrophils % 86.9 Lymphocytes % 6.6 Monocytes % 5.6 Eosinophils % 0.0 Basophils % 0.3 Nucleated RBC % 0 Absolute Neutrophils 13.25 H Absolute Lymphocytes 1.01 L Absolute Monocytes 0.85 H Absolute Eosinophils 0.00 Absolute Basophils 0.05 PT 11.0 INR 1.1 APTT 24.2 VBG pH VBG pCO2 VBG pO2 VBG HCO3 VBG Total CO2 VBG O2 Saturation VBG Base Excess VBG Lactate Sodium 142 Potassium 4.3 Chloride 104 Carbon Dioxide 22.5 Anion Gap 15.5 H BUN 14 Creatinine 1.4 H Estimated GFR/1.73 m2 51.52 Glucose 224 H Calcium 9.3 Magnesium 1.6 L Total Bilirubin 0.5 AST 13 L ALT 26 Alkaline Phosphatase 66 Creatine Kinase Troponin I < 0.05 Total Protein 8.0 Albumin 3.6 Procalcitonin TSH Urine Color Urine Clarity Urine pH Ur Specific [place] Urine Protein Urine Ketones Urine Blood Urine Nitrite Urine Bilirubin Urine Urobilinogen Ur Leukocyte Esterase Urine RBC Urine WBC Ur Epithelial Cells Urine Crystals Urine Bacteria Urine Casts Urine Mucus Urine Other Ur Culture Indicated? Urine Glucose Urine Opiates Screen Urine Methadone Screen Ur Barbiturates Screen Ur Tricyclics Screen Ur Amphetamines Screen U Benzodiazepines Scrn Urine Cocaine Screen Ur THC Screen COVID-19 Source SARS-CoV-2 (PCR) 11/13/20 11/13/20 11/13/20 15:40 15:55 16:00 WBC RBC Hgb Hct MCV MCH MCHC RDW Plt Count MPV Immature Gran % Neutrophils % Lymphocytes % Monocytes % Eosinophils % Basophils % Nucleated RBC % Absolute Neutrophils Absolute Lymphocytes Absolute Monocytes Absolute Eosinophils Absolute Basophils PT INR APTT VBG pH VBG pCO2 VBG pO2 VBG HCO3 VBG Total CO2 VBG O2 Saturation VBG Base Excess VBG Lactate 4.2 H* Sodium Potassium Chloride Carbon Dioxide Anion Gap BUN Creatinine Estimated GFR/1.73 m2 Glucose Calcium Magnesium Total Bilirubin AST ALT Alkaline Phosphatase Creatine Kinase Troponin I Total Protein Albumin Procalcitonin 0.1 TSH Urine Color Urine Clarity Urine pH Ur Specific [place] Urine Protein Urine Ketones Urine Blood Urine Nitrite Urine Bilirubin Urine Urobilinogen Ur Leukocyte Esterase Urine RBC Urine WBC Ur Epithelial Cells Urine Crystals Urine Bacteria Urine Casts Urine Mucus Urine Other Ur Culture Indicated? Urine Glucose Urine Opiates Screen Urine Methadone Screen Ur Barbiturates Screen Ur Tricyclics Screen Ur Amphetamines Screen U Benzodiazepines Scrn Urine Cocaine Screen Ur THC Screen COVID-19 Source Nasopharyx SARS-CoV-2 (PCR) Negative 11/13/20 11/13/20 11/13/20 17:50 17:50 18:35 WBC RBC Hgb Hct MCV MCH MCHC RDW Plt Count MPV Immature Gran % Neutrophils % Lymphocytes % Monocytes % Eosinophils % Basophils % Nucleated RBC % Absolute Neutrophils Absolute Lymphocytes Absolute Monocytes Absolute Eosinophils Absolute Basophils PT INR APTT VBG pH VBG pCO2 VBG pO2 VBG HCO3 VBG Total CO2 VBG O2 Saturation VBG Base Excess VBG Lactate Sodium Potassium Chloride Carbon Dioxide Anion Gap BUN Creatinine Estimated GFR/1.73 m2 Glucose Calcium Magnesium Total Bilirubin AST ALT Alkaline Phosphatase Creatine Kinase Troponin I 0.07 H Total Protein Albumin Procalcitonin TSH Urine Color [place] Urine Clarity Clear Urine pH 6.0 Ur Specific [place] >= 1.030 H Urine Protein 100 H Urine Ketones 80 H Urine Blood Trace-intact H Urine Nitrite Negative Urine Bilirubin Small H Urine Urobilinogen 1.0 H Ur Leukocyte Esterase Negative Urine RBC Negative Urine WBC 0-2 Ur Epithelial Cells Negative Urine Crystals Negative Urine Bacteria Negative Urine Casts 5-10 fine granular Urine Mucus Negative Urine Other Negative Ur Culture Indicated? No Urine Glucose Negative Urine Opiates Screen Negative Urine Methadone Screen Negative Ur Barbiturates Screen Negative Ur Tricyclics Screen Negative Ur Amphetamines Screen Negative U Benzodiazepines Scrn Negative Urine Cocaine Screen Negative Ur THC Screen Negative COVID-19 Source SARS-CoV-2 (PCR) 11/13/20 11/13/20 11/13/20 19:28 23:28 23:28 WBC RBC Hgb Hct MCV MCH MCHC RDW Plt Count MPV Immature Gran % Neutrophils % Lymphocytes % Monocytes % Eosinophils % Basophils % Nucleated RBC % Absolute Neutrophils Absolute Lymphocytes Absolute Monocytes Absolute Eosinophils Absolute Basophils PT INR APTT VBG pH 7.38 VBG pCO2 44 VBG pO2 60 VBG HCO3 26 VBG Total CO2 23 L VBG O2 Saturation 92 VBG Base Excess 1 VBG Lactate Sodium Potassium Chloride Carbon Dioxide Anion Gap BUN Creatinine Estimated GFR/1.73 m2 Glucose Calcium Magnesium Total Bilirubin AST ALT Alkaline Phosphatase Creatine Kinase Troponin I 0.08 H* Total Protein Albumin Procalcitonin TSH 0.40 Urine Color Urine Clarity Urine pH Ur Specific [place] Urine Protein Urine Ketones Urine Blood Urine Nitrite Urine Bilirubin Urine Urobilinogen Ur Leukocyte Esterase Urine RBC Urine WBC Ur Epithelial Cells Urine Crystals Urine Bacteria Urine Casts Urine Mucus Urine Other Ur Culture Indicated? Urine Glucose Urine Opiates Screen Urine Methadone Screen Ur Barbiturates Screen Ur Tricyclics Screen Ur Amphetamines Screen U Benzodiazepines Scrn Urine Cocaine Screen Ur THC Screen COVID-19 Source SARS-CoV-2 (PCR) 11/14/20 11/14/20 11/14/20 02:28 06:40 06:40 WBC RBC Hgb Hct MCV MCH MCHC RDW Plt Count MPV Immature Gran % Neutrophils % Lymphocytes % Monocytes % Eosinophils % Basophils % Nucleated RBC % Absolute Neutrophils Absolute Lymphocytes Absolute Monocytes Absolute Eosinophils Absolute Basophils PT INR APTT VBG pH VBG pCO2 VBG pO2 VBG HCO3 VBG Total CO2 VBG O2 Saturation VBG Base Excess VBG Lactate 1.2 Sodium 144 Potassium 4.0 Chloride 108 H Carbon Dioxide 29.6 Anion Gap 6.4 BUN 15 Creatinine 0.8 D Estimated GFR/1.73 m2 >= 60.00 Glucose 138 H D Calcium 8.4 L Magnesium 2.1 Total Bilirubin 0.5 AST 13 L ALT 21 Alkaline Phosphatase 49 Creatine Kinase Troponin I 0.09 H* Total Protein 6.4 Albumin 2.8 L Procalcitonin TSH Urine Color Urine Clarity Urine pH Ur Specific [place] Urine Protein Urine Ketones Urine Blood Urine Nitrite Urine Bilirubin Urine Urobilinogen Ur Leukocyte Esterase Urine RBC Urine WBC Ur Epithelial Cells Urine Crystals Urine Bacteria Urine Casts Urine Mucus Urine Other Ur Culture Indicated? Urine Glucose Urine Opiates Screen Urine Methadone Screen Ur Barbiturates Screen Ur Tricyclics Screen Ur Amphetamines Screen U Benzodiazepines Scrn Urine Cocaine Screen Ur THC Screen COVID-19 Source SARS-CoV-2 (PCR) 11/14/20 11/14/20 11/14/20 06:40 06:40 06:40 WBC 10.91 H RBC 4.76 Hgb 14.7 D Hct 44.1 MCV 92.6 MCH 30.9 MCHC 33.3 RDW 12.8 Plt Count 152 MPV 11.1 H Immature Gran % 0.5 Neutrophils % 75.7 Lymphocytes % 12.8 Monocytes % 10.4 Eosinophils % 0.3 Basophils % 0.3 Nucleated RBC % 0 Absolute Neutrophils 8.26 H Absolute Lymphocytes 1.40 Absolute Monocytes 1.13 H Absolute Eosinophils 0.03 Absolute Basophils 0.03 PT INR APTT VBG pH VBG pCO2 VBG pO2 VBG HCO3 VBG Total CO2 VBG O2 Saturation VBG Base Excess VBG Lactate Sodium Potassium Chloride Carbon Dioxide Anion Gap BUN Creatinine Estimated GFR/1.73 m2 Glucose Calcium Magnesium Total Bilirubin AST ALT Alkaline Phosphatase Creatine Kinase 402 H Troponin I 0.07 H Total Protein Albumin Procalcitonin TSH Urine Color Urine Clarity Urine pH Ur Specific [place] Urine Protein Urine Ketones Urine Blood Urine Nitrite Urine Bilirubin Urine Urobilinogen Ur Leukocyte Esterase Urine RBC Urine WBC Ur Epithelial Cells Urine Crystals Urine Bacteria Urine Casts Urine Mucus Urine Other Ur Culture Indicated? Urine Glucose Urine Opiates Screen Urine Methadone Screen Ur Barbiturates Screen Ur Tricyclics Screen Ur Amphetamines Screen U Benzodiazepines Scrn Urine Cocaine Screen Ur THC Screen COVID-19 Source SARS-CoV-2 (PCR)
[2020-11-14] MEDS: Furosemide 40 MG/4 ML VIAL IVP (12:13)
[2020-11-14 12:33] LABS: NT-proBNP 2503 pg/mL (<300)
[2020-11-14] MEDS: Insulin Aspart 300 UNITS/3 ML PEN SC ×2 (17:08→21:21)
[2020-11-14] MEDS: cefTRIAXone 1 GM/50 ML BAG IVPB (19:20)
[2020-11-14] MEDS: Atorvastatin 10 MG TAB 80 MG PO (21:18)
[2020-11-14] MEDS: rOPINIRole 0.5 MG TAB 1 MG PO (21:19)
[2020-11-14] MEDS: Divalproex Sodium 500 MG TAB.ER.24H 2000 MG PO (21:19)
[2020-11-14] MEDS: Melatonin 3 MG TAB PO (21:19)
[2020-11-14] MEDS: methylPREDNISolone SUCC 125 MG VIAL 80 MG IVP (22:38)
[2020-11-15] VITALS (9 sets, daily range): BP systolic 106–131; BP diastolic 70–80; PULSE 80–96; RESP 18–22; TEMP 36–37; O2SAT 88–95
[2020-11-15] MEDS: THYROID 90 MG PO (05:26)
[2020-11-15] MEDS: Aspirin 81 MG CHEW PO (08:36)
[2020-11-15] MEDS: Apixaban 5 MG TAB PO (08:36)
[2020-11-15] MEDS: Normal Saline Flush 10 ML SYR IVP (08:36)
[2020-11-15] MEDS: Insulin Aspart 300 UNITS/3 ML PEN SC ×2 (08:36→12:21)
[2020-11-15] MEDS: Lisinopril 5 MG TAB PO (08:36)
[2020-11-15] MEDS: DOXYCYCLINE 100 MG in Normal Saline 100 ML IVPB (08:36)
--- NOTE | 2020-11-15 10:22 | PT.INIE ---
Date of service: 11/15/20 Time of Service: 10:22 PT Notes Visit Reasons: NSTEMT. HYPERTHERMIA WITH DEHYDRATION CAF Physical Therapy Inpatient Initial Evaluation Date: Referring Doctor: PT Orders: PT CONSULT: Eval/Treat. Precautions: Fall. Standard. Activity as tolerated. Patient Profile/Admitting Diagnosis: Judd is a 59-year-old male who was brought to the ED on 11/13/2020 after being found on the ground unconscious. He is diagnosed with NSTEMI, acute kidney injury, dehydration, hyperthermia associated with heat, syncope, and pneumonia. PMHX: Medical History (Updated 11/14/20 @ 17:53 by Julius Calderon) Bipolar disorder order regular do with Chronic schizophrenia Diabetes mellitus, type 2 Obesity Surgical History Colonoscopy - MAC (01/25/16) 2010 Excision, Lipoma Hx of cholecystectomy Hydrocelectomy Tonsillectomy Social History/Home Situation: Lives alone in the basement of an apartment building with 2 stone steps to enter. Did recommend any ambulation using no assistive device prior to admission. Did not use oxygen supplementation prior to ED visit. Equipment Owned/DME: None Subjective: Feels so much more better compared to yesterday. Denies headache, chest pain, and dizziness throughout ambulation activity. Did report minimal shortness of breath that he thinks has been baseline for him. Objective: General Observation: Telemetry monitoring in place. IV access in left UE. Mental Status: Alert and oriented as to person, place, time, and purpose. Able to pay attention, focus, and respond appropriately. Pain: 0/10 Vital Signs: Oxygen saturation ranged from 91% through 94% on room air with ambulation activity ROM: Right Upper Extremity: Shoulder Flexion WFL. Shoulder abduction WFL. Shoulder ER/IR WFL. Elbow flexion WFL. Forearm pronation/supination WFL. Wrist flexion WFL. Opening and closing of hand WFL. Left Upper Extremity: Shoulder Flexion WFL. Shoulder abduction WFL. Shoulder ER/IR WFL. Elbow flexion WFL. Forearm pronation/supination WFL. Wrist flexion WFL. Opening and closing of hand WFL. Right Lower Extremity: Hip flexion WFL. Hip abduction WFL. Hip ER/IR WFL. Knee flexion WFL. Knee extension. Ankle dorsiflexion/eversion WFL. Ankle plantarflexion/inversion WFL. Left Lower Extremity: Hip flexion WFL. Hip abduction WFL. Hip ER/IR WFL. Knee flexion WFL. Knee extension. Ankle dorsiflexion WFL. Ankle plantarflexion WFL. Strength: Right Upper Extremity: Shoulder flexors 4/5. Shoulder abductors 4/5. Shoulder ER 4/5. Shoulder IR 4/5. Forearm pronators 5/5. Forearm supinators 5/5. Elbow flexors 5/5. Elbow extensors 5/5. Fretted Instrument Maker Hand weak but functional Left Upper Extremity: Shoulder flexors 4/5. Shoulder abductors 4/5. Shoulder ER 4/5. Shoulder IR 4/5. Forearm pronators 5/5. Forearm supinators 5/5. Elbow flexors 5/5. Elbow extensors 5/5. Fretted Instrument Maker Hand weak but functional Right Lower Extremity: Hip flexors 4/5. Hip abductors 4/5. Hip external rotators 4/5. Hip internal rotators 4/5. Knee flexors 4/5. Knee extensors 4/5. Ankle dorsiflexors/evertors 4/5. Ankle plantarflexors/invertors 4/5. Left Lower Extremity: Hip flexors 4/5. Hip abductors 4/5. Hip external rotators 4/5. Hip internal rotators 4/5. Knee flexors 4/5. Knee extensors 4/5. Ankle dorsiflexors/evertors 4/5. Ankle plantarflexors/invertors 4/5. Bed Mobility/Transfers: Rolling independent Supine to sit independent Sit to supine independent Sit to stand independent Stand to sit independent Bed to bedside commode independent Bedside commode to bed independent Bed to chair independent Chair to bed independent Gait: Distance of 300 feet requiring supervision with no assistive device. Nella decreased. No LOB. No path deviation. Minimal S OB seen that resolved with rest. Oxygen saturation at 94% on room air after ambulation activity. Balance: Static Sitting: Normal Dynamic Sitting: Normal Static Standing: Normal Dynamic Standing: Good Special Tests: Mobility Limitations Standardized [facility] AM-PAC 6 clicks Basic Mobility Inpatient Short Form: Raw Score: 24 CMS Score: 0% deficit Informed Consent/Education: Patient instructed in purpose of PT consult Assessment: No skilled services needed this time. Patient does not need any assistive device to cover up to 300 feet. Home when medically cleared by hospitalist. No equipment needs at this time. Patient is assessed as a 6 1 level complexity based on the following: History: 59-year-old male with past medical history as indicated above Examination: Demonstrable impairment in strength, balance, and mobility level with underlying impairments and functional limitations as exhibited above as well as deficit score of 0% utilizing the [facility] Mobility Inpatient Short Form Presentation: Stable Decision Makin low complexity Goals: N/A. PT evaluation only and one treatment session. Plan of Care/Treatment Plan: N/A. PT evaluation only and one treatment session. DISCHARGE RECOMMENDATIONS: Home when medically cleared by hospitalist. No equipment needs at this time. Enough. TREATMENT CODE/TIME: 59060 x 23 minutes low complexity beginning at 10:22 AM. Thank you for the opportunity to participate in the care of this patient. Karli Burrows PT, DPT, CLT [facility] [place], [place]
--- NOTE | 2020-11-15 12:18 | DSE_ITS ---
Date of service: 11/15/20 Time of Service: 12:18 DS: Diagnosis Discharge Diagnosis (1) Non-ST elevation [place] (NSTEMI): Status: Acute (2) BRENNEN (acute kidney injury): Status: Acute (3) Dehydration: Status: Acute (4) Hyperthermia associated with heat: Status: Acute (5) Syncope: Status: Acute (6) Pneumonia: Status: Suspected Discharge Plan Disposition Patient Disposition: HOME Condition: Good Discharge Details Reason For Visit: NSTEMT. HYPERTHERMIA WITH DEHYDRATION CAF Admit Date/Time: 11/13/20 19:43 Admit Provider: Julius Calderon Attending Provider: Julius Calderon Primary Care Provider: Nisha Carrillo [facility] Hospital Course: This is a 59-year-old male patient who was seen in the ED after a syncopal episode while walking in the streets of [place], [place] during the hottest part of the day. He was profusely sweaty and found to have hyperthermia and was transferred via EMS to the ED. He was found to have tachycardia up to 190 range with a history of atrial fibrillation and was given diltiazem for a total of 20 mg in transport. Temperature was 101 ?F and his pulse oximeter was in the 80% range. In the ED the patient had a improved heart rate of just over 100 with continued chronic atrial fibrillation for which he was on treatment as an outpatient with Eliquis for anticoagulation. His body temperature was decreased by air movement with fans and he was resuscitated with IV fluids with heart rate improvement without further diltiazem. Patient does have chronic bipolar disease with schizophrenia. He has not complained of any chest pain or discomfort and is tolerating IV fluids since being brought up to [facility] for monitoring on telemetry. He did have an elevated troponin level initially being less than 0.05 and then rising to 0.08 with follow-up slightly increased at 0.09 where it peaked. He denies any chest pain or pressure Tertiary care facilities were called about his elevation in troponin possible non-STEMI and there were no transfer beds available. This did appear to be a type II non-STEMI secondary to his event with overheating. The patient had evidence of dehydration with BRENNEN with mildly elevated lactate and elevated anion gap which was treated with IV fluid resuscitation, this also could have accounted for his elevated troponin. Patient did have an echocardiogram in 2016 with preserved left ventricular ejection fraction. an echocardiogram on this admission shows normal LVF with EF 75%, this is no significant valvular disease. He remained hemodynamically stable without chest pain but day following admission experienced some increased shortness of breath and hypoxia. again with no chest pain. his bnp elevated at 2500 and lungs sounding wet, responded to 40 mg of IV lasix diuresing well and weaned off oxygen. he remained afebrile. he is now stable and ready for discharge to home. I will defer any further evaluation to pcp. his episode was likely d/t excessive heat and dehydration. he had no further symptoms while hospitalized, his telemetry with no dysrhythmias. I will prescribe 5 day of doxycycline to complete treatment for pneumonia initiated in the ED. discharge discussed with Dr Hickman. Home Meds and New Rx's Prescriptions: New doxycycline hyclate 100 mg capsule 100 mg PO BID Qty: 10 RF: 0 Continued Eliquis 5 MG tablet 5 mg PO BID Qty: 180 RF: 12 clozapine 100 MG tablet 300 mg PO HS RF: 0 aspirin 81 MG tablet,chewable 81 mg PO DAILY RF: 0 sennosides [senna] 8.6 MG tablet 8.6 mg PO BID 1 Days RF: 0 atorvastatin [Lipitor] 10 MG tablet 10 mg PO HS RF: 0 divalproex 500 MG tablet extended release 24 hr 2,000 mg PO HS RF: 0 benztropine 1 MG tablet 1 mg PO BID RF: 0 thyroid (pork) [[place] Thyroid] 90 MG tablet 90 mg PO QAM RF: 0 melatonin 3 MG tablet extended release 3 mg PO HS RF: 0 Kristalose 20 GM packet 20 gm PO .QD PRN (Reason: Constipation) Qty: 3 RF: 0 ropinirole 1 mg Tablet 1 mg PO DAILY RF: 0 metformin 1,000 mg Tablet 1,000 mg PO BID RF: 0 albuterol sulfate [Ventolin HFA] 90 mcg/actuation Hfa Aerosol Inhaler INHALATION RF: 0 docusate sodium 100 mg capsule 200 mg PO BID RF: 0 lisinopril 5 mg tablet 5 mg PO DAILY RF: 0 Discharge Instructions Instructions: Dehydration (DC), Pneumonia (DC) Additional Instructions: you are prescribed 5 more days of antibiotics to complete, finish prescription completely, even if you feel better. drink 6-8 glasses of water daily to stay well hydrated. use your incentive spirometer as directed every 1-2 hours while awake for the next 7 days. then as needed only. Stand Alone Forms: Nursing Discharge Form Referrals: Nisha Carrillo MD [Primary Care Provider] - (Please call for follow up appointment. ) Activity:: Activity as Tolerated Equipment/Supplies:: No Equipment Needed Diet:: Carb Counting Discharge Orders Discharge Orders: Discharge Order (Routine); Ordered 11/15/20 Ordered By: Odalys Johns DS: Summary Time Spent with Patient providing and/or coordinating discharge services: Greater than 30 minutes Status at Discharge Functional status at discharge: independent ambulation Overall status at discharge: patient is progressing back to baseline Mental Status: mental status grossly normal Speech and Movement: speech and movement normal Mood: congruent mood Affect: normal affect Exam Const General: cooperative, acute distress moderate and respiratory and ill appearing chronically Nutritional Appearance: obese Orientation: alert, awake and oriented x3 Resp Effort & Inspection: cough and respiratory distress Auscultation: rhonchi (course throughout) Cardio Rate: regular rate GI Inspection: normal to inspection Palpation: soft Auscultation: normal bowel sounds Skin General skin exam: no rashes or lesions noted Neuro General: patient alert, patient awake and patient oriented x3 Speech: speech normal Psych Mental Status: mental status grossly normal Speech and Movement: speech and movement normal Mood: congruent mood Affect: normal affect DS: Data Vitals/I&O Vitals and I&O: Vital Signs Temperature 36 C L 11/15/20 11:52 Temperature Source Tympanic 11/15/20 11:52 Pulse 88 11/15/20 11:52 Pulse Rhythm Irregular 11/15/20 07:30 Pulse 103 H 11/13/20 20:00 Respiratory Rate 20 11/15/20 11:52 Respiratory Effort 11/15/20 07:30 Respiratory Depth Normal 11/15/20 07:30 Respiratory Pattern Normal 11/15/20 07:30 Blood Pressure 114/70 11/15/20 11:52 Blood Pressure Mean 73 11/13/20 17:16 Blood Pressure Position Supine 11/13/20 15:25 Pulse Oximetry 92 11/15/20 11:52 Oxygen Delivery Method Nasal Cannula 11/15/20 11:52 Oxygen Flow Rate 1 11/15/20 11:52 Pain Level 0 11/15/20 11:52 Comment patient sweating a lot posterior lungs throughout course rhonchi and wheezes noted 11/15/20 03:30 Intake & Output 11/14/20 11/15/20 11/15/20 23:59 11:59 23:59 Intake Total 300 / 1000 840 / 840 Output Total 1150 / 1650 825 / 825 Balance -850 / -650 Weight 122.9 kg Intake: IV 100 / 100 120 / 120 Oral 200 / 900 720 / 720 Output: Urine 1150 / 1650 825 / 825 Other: Urine Color Light Beryl Yellow Urine Appearance Clear Clear Urine Odor Normal Comment post lasix Stool Size Small Stool Characteristics Hard Voiding Methods Urinal Toilet Data Completed and Pending Labs on day of discharge: Labs from last 24 hours 11/14/20 06:40 NT-Pro-B Natriuret Pep 2503 H Preliminary micro results at discharge 11/13/20 16:00 Blood Culture - Preliminary Blood NO GROWTH 24 HOURS 11/13/20 16:10 Blood Culture - Preliminary Blood NO GROWTH 24 HOURS [facility] Medical History (Updated 11/14/20 @ 17:53 by Julius Calderon) Bipolar disorder Chronic schizophrenia Diabetes mellitus, type 2 Obesity Surgical History Colonoscopy - MAC (01/25/16) 2010 Excision, Lipoma Hx of cholecystectomy Hydrocelectomy Tonsillectomy Family History Mother No problems noted. Father Heart disease Brother Alcohol abuse Social History Smoking/Tobacco Use Status: Current every day Tobacco Type: cigarettes Smoking risk assessment performed?: Yes Drug use: Never Substance use type: does not use Do you feel safe at home: Yes Do you feel safe in your relationship?: Yes
--- NOTE | 2020-11-15 12:50 | CMDISCH_ITS ---
- If Service Date Differs Date of service: 11/15/20 Time of Service: 12:50 LACE Index Scoring Tool - Questions: Length of Stay (in days): 2 Acuity (Admit via E.D.?): Yes Comorbidities: Diabetes w/o Complication E.D. Visits: 2 - Answers: Total Score: 8 Risk of Readmission: Low Risk Care Management Discharge Reason for Hospitalization: NSTEMI, Hyperthermia with dehydration CAF Discharge Plan: Judd will return home today with no new services. He was e valuated by PT and found to be at his functional baseline. 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 He will follow up with his PCP and discharge plan of care. He is happy to be going home. Patient/Family Education Needs: Review discharge instructions regarding activity levels and medications, discussion of self care needs including ask me three.
--- NOTE | 2020-11-15 13:23 | OTIE_ITS ---
Occupational Therapy Notes Inpatient Occupational Therapy Evaluation Date: 11/15/20 Referring Doctor:Odalys Johns NP OT Orders: Non-Urgent Precautions: Fall, standard, Full PATIENT PROFILE/ADMITTING DIAGNOSIS: Pt is a 59 year old male who was admitted to Med Surg with the following dx including hyperthermia associated with heat, BRENNEN, syncope, pneumonia, Non-ST elevation, dehydration. Past Medical History: Medical History (Updated 11/14/20 @ 17:53 by Julius Calderon) Bipolar disorder Chronic schizophrenia Diabetes mellitus, type 2 Obesity Surgical History Colonoscopy - MAC (01/25/16) 2010 Excision, Lipoma Hx of cholecystectomy Hydrocelectomy Tonsillectomy Social History/Home Situation: Pt states that he lives alone on [address], he notes that he is (I) at baseline, he drives, does his laundry at the laundromat and sometimes he does it at his neighbors. He reports that he has a tub shower and a walk in shower. He states that he utilizes a FWW in the winter and notes that otherwise he is (I). Equipment owned/DME: FWW per pt report SUBJECTIVE: Pt was sitting in chair when OT arrived, he was agreeable to OT session and notes that he is going home and would like to be done with the hospital as soon as possible. He states that he has no idea how he even got to the hospital. OBJECTIVE: General Observation: Pleasant, agreeable to OT session, IV in (L) hand Mental Status: A&Ox3, poor historian at times Pain: no c/o pain ROM: RUE AROM WFL L UE AROM WFL STRENGTH: RUE 4/5 throughout LUE 4/5 throughout FUNCTIONAL MOBILITY/ADLS: Transfers (I) with utilization of FWW in winter months per pt report. Sit-Stand (I) Stand-sit (I) BATHING NT as pt denies and states that he is returning home and will shower tonight. He has increased ROM and functional ROM required to be able to perform this (I). DRESSING sitting in chair Dressing UE (I) don and doff gown Dressing LE (I) don and doff (B) socks GROOMING (I) TOILETING pt denies but reports that he is (I) he has no issued with performance of sit-stand and is able to demonstrate functional ROM to be able to perform this (I) EATING NT BALANCE: Static sitting Normal Dynamic Sitting Normal Static Standing Normal Dynamic Standing Normal SPECIAL TESTS: Daily Activity Limitations [facility]? Daily Activity Inpatient Short Form: Raw score: 22 INFORMED CONSENT/EDUCATION: Pt instructed in purpose of OT Consult and plan of care. ASSESSMENT: Patient is a 59 -year-old male referred to occupational therapy services with diagnosis of hyperthermia associated with heat, BRENNEN, syncope, pneumonia, Non-ST elevation, dehydration. Patient presents with clinical signs and symptoms consistent with dx. He was seen today for initial consult and assessment of his ADLs. He is able to perform his ADLs (I) without (A) and notes that he is at his baseline and would like to return home. AMPAC score 22 Patient is assessed as a Low 16775 complexity based on the following: History: see above Examination: see functional limitations as noted above Presentation: evolving Decision Making: AMPAC score 22 GOALS N/A seen for OT consult only. PLAN OF CARE/TREATMENT PLAN: Discharge from skilled OT services. DISCHARGE RECOMMENDATIONS OT recommends that pt return home when medically cleared per MD. No DME recommendations needed at this time. TREATMENT TIME/MINUTES/CODES 23236, 67540, 25 minutes (13:05) [facility]far[facility]
== END 2020-11-15 15:22 | disposition home or self-care (01) | DRG 280 ==
LOC: ER 20:21 → MS 21:23
PROVIDERS: Nurse Practitioner Acute Care; Admitting Provider Family Medicine; Emergency Provider Student in an Organized Health Care Education/Training Program; PCP Family Medicine; Visit Provider Family Medicine
DX: I21.A1 Myocardial infarction type 2 (principal); J18.9 Pneumonia, unspecified organism; I48.20 Chronic atrial fibrillation, unspecified; N17.9 Acute kidney failure, unspecified; E86.0 Dehydration; F20.9 Schizophrenia, unspecified; F31.9 Bipolar disorder, unspecified; T67.1XXA Heat syncope, initial encounter; X30.XXXA Exposure to excessive natural heat, initial encounter; R09.02 Hypoxemia; E11.9 Type 2 diabetes mellitus without complications; F17.210 Nicotine dependence, cigarettes, uncomplicated; Z20.822 Contact with and (suspected) exposure to COVID-19
CPT/HCPCS: 36415; 71275; 80053; 80307; 82550; 82805; 84145; 87040; 87635; 93005; 96365; 96368; 96375; 97161; 97165; 99285; 70450; 71045; 81003; 81015; 83605; 83735; 83880; 84443; 84484; 85025; 85610; 85730; 93010; 93306; 99233; 99239; J0696; J1940; J1941; J2930; J3490; J7613

== ENCOUNTER 2020-12-03 03:44 | Outpatient (CLI) | payer MEDICARE, MEDICAID, SELFPAY ==
[2020-12-03 12:43] LABS: Abs Immature Grans 0.08 10^3/uL (0.0-0.06); Absolute Basophil Count 0.06 10^3/uL (0.0-0.2); Absolute Eosinophil Count 0.22 10^3/uL (0.0-0.7); Absolute Lymphocyte Count 3.14 10^3/uL (1.2-3.4); Absolute Monocyte Count 0.64 10^3/uL (0.1-0.8); Absolute Neutrophil Count 4.96 10^3/uL (1.2-6.7); Basophils % 0.7; Eosinophils % 2.4; Immature Grans % 0.9; Lymphocytes % 34.5; MCH 31.1 pg (27.0-33.0); MCV 91.4 fL (80-95); Neutrophils % 54.5; Nucleated RBC 0 %; Platelet Count 244 10^3/uL (130-400); RBC 5.47 10^6/uL (4.36-5.78); RDW 12.4 % (11.8-14.1); RDW-SD 41.5 fL
== END 2020-12-03 03:45 | disposition home or self-care (01) ==
LOC: LBO 03:44
PROVIDERS: PCP Family Medicine; Visit Provider Psychiatry & Neurology Psychiatry
DX: F25.0 Schizoaffective disorder, bipolar type (principal); Z79.899 Other long term (current) drug therapy
CPT/HCPCS: 36415; 85025

== ENCOUNTER 2021-01-21 03:08 | Outpatient (CLI) | payer MEDICARE, MEDICAID, SELFPAY ==
[2021-01-21 11:59] LABS: Abs Immature Grans 0.07 10^3/uL (0.0-0.06); Absolute Basophil Count 0.05 10^3/uL (0.0-0.2); Absolute Eosinophil Count 0.31 10^3/uL (0.0-0.7); Absolute Lymphocyte Count 2.78 10^3/uL (1.2-3.4); Absolute Monocyte Count 0.68 10^3/uL (0.1-0.8); Absolute Neutrophil Count 4.48 10^3/uL (1.2-6.7); Basophils % 0.6; Eosinophils % 3.7; HGB 16.7 g/dL (13.5-17.5); Immature Grans % 0.8; Lymphocytes % 33.2; MCH 30.8 pg (27.0-33.0); MCHC 33.4 % (32.0-36.0); MCV 92.3 fL (80-95); MPV 11.7 fL (8.0-11.0); Monocytes % 8.1; Neutrophils % 53.6; Nucleated RBC 0 %; Platelet Count 261 10^3/uL (130-400); RBC 5.42 10^6/uL (4.36-5.78); RDW 12.9 % (11.8-14.1); RDW-SD 43.6 fL; WBC 8.37 10^3/uL (4.4-10.8)
== END 2021-01-21 03:09 | disposition home or self-care (01) ==
LOC: LBO 03:08
PROVIDERS: PCP Family Medicine; Visit Provider Psychiatry & Neurology Psychiatry
DX: F25.0 Schizoaffective disorder, bipolar type (principal); Z79.899 Other long term (current) drug therapy
CPT/HCPCS: 36415; 85025

== ENCOUNTER 2021-02-25 12:02 | Outpatient (CLI) | payer MEDICARE, MEDICAID, SELFPAY ==
[2021-02-25 14:41] LABS: Abs Immature Grans 0.06 10^3/uL (0.0-0.06); Absolute Basophil Count 0.07 10^3/uL (0.0-0.2); Absolute Eosinophil Count 0.22 10^3/uL (0.0-0.7); Absolute Lymphocyte Count 3.25 10^3/uL (1.2-3.4); Absolute Neutrophil Count 6.73 10^3/uL (1.2-6.7); Basophils % 0.6; HCT 51.5 % (40.0-50.0); HGB 17.2 g/dL (13.5-17.5); Immature Grans % 0.5; Lymphocytes % 29.3; MCHC 33.4 % (32.0-36.0); MCV 92.8 fL (80-95); MPV 10.7 fL (8.0-11.0); Monocytes % 6.9; Neutrophils % 60.7; Nucleated RBC 0 %; Platelet Count 266 10^3/uL (130-400); RBC 5.55 10^6/uL (4.36-5.78); RDW 12.8 % (11.8-14.1); RDW-SD 43.4 fL; WBC 11.09 10^3/uL (4.4-10.8)
[2021-02-25 14:42] LABS: Absolute Monocyte Count 0.77 10^3/uL (0.1-0.8)
== END 2021-02-25 12:03 | disposition home or self-care (01) ==
LOC: LBO 12:05
PROVIDERS: PCP Family Medicine; Visit Provider Psychiatry & Neurology Psychiatry
DX: F25.0 Schizoaffective disorder, bipolar type (principal); Z79.899 Other long term (current) drug therapy
CPT/HCPCS: 36415; 85025

== ENCOUNTER 2021-03-04 13:36 | Outpatient (REF) | payer MEDICARE, MEDICAID, SELFPAY ==
[2021-03-05 14:57] LABS: COVID-19 RT-PCR UVMMC Result Negative (Negative)
== END 2021-03-04 13:37 | disposition home or self-care (01) ==
LOC: LBN 13:36
PROVIDERS: PCP Family Medicine; Visit Provider Nurse Practitioner Family
DX: Z20.822 Contact with and (suspected) exposure to COVID-19 (principal); J06.9 Acute upper respiratory infection, unspecified
CPT/HCPCS: U0003; U0005

== ENCOUNTER 2021-03-07 04:03 | Outpatient (CLI) | payer MEDICARE, MEDICAID, SELFPAY ==
[2021-03-07 12:11] LABS: Abs Immature Grans 0.06 10^3/uL (0.0-0.06); Absolute Basophil Count 0.04 10^3/uL (0.0-0.2); Absolute Eosinophil Count 0.09 10^3/uL (0.0-0.7); Absolute Lymphocyte Count 2.96 10^3/uL (1.2-3.4); Absolute Monocyte Count 0.75 10^3/uL (0.1-0.8); Absolute Neutrophil Count 6.05 10^3/uL (1.2-6.7); Basophils % 0.4; Eosinophils % 0.9; HCT 48.1 % (40.0-50.0); HGB 16.2 g/dL (13.5-17.5); Immature Grans % 0.6; Lymphocytes % 29.7; MCHC 33.7 % (32.0-36.0); MCV 92.1 fL (80-95); MPV 11.7 fL (8.0-11.0); Monocytes % 7.5; Neutrophils % 60.9; Nucleated RBC 0 %; Platelet Count 205 10^3/uL (130-400); RBC 5.22 10^6/uL (4.36-5.78); RDW 12.9 % (11.8-14.1); RDW-SD 43.8 fL; WBC 9.95 10^3/uL (4.4-10.8)
== END 2021-03-07 04:04 | disposition home or self-care (01) ==
PROVIDERS: PCP Family Medicine; Visit Provider Psychiatry & Neurology Psychiatry
DX: F25.0 Schizoaffective disorder, bipolar type (principal); Z79.899 Other long term (current) drug therapy
CPT/HCPCS: 36415; 85025

== ENCOUNTER 2021-03-11 04:01 | Outpatient (CLI) | payer MEDICARE, MEDICAID, SELFPAY ==
[2021-03-11 14:22] LABS: Abs Immature Grans 0.07 10^3/uL (0.0-0.06); Absolute Basophil Count 0.06 10^3/uL (0.0-0.2); Absolute Eosinophil Count 0.21 10^3/uL (0.0-0.7); Absolute Lymphocyte Count 3.67 10^3/uL (1.2-3.4); Absolute Monocyte Count 0.86 10^3/uL (0.1-0.8); Absolute Neutrophil Count 5.26 10^3/uL (1.2-6.7); Basophils % 0.6; Eosinophils % 2.1; HCT 50.3 % (40.0-50.0); HGB 16.9 g/dL (13.5-17.5); Immature Grans % 0.7; Lymphocytes % 36.2; MCH 31.4 pg (27.0-33.0); MCHC 33.6 % (32.0-36.0); MCV 93.3 fL (80-95); MPV 10.8 fL (8.0-11.0); Monocytes % 8.5; Neutrophils % 51.9; Nucleated RBC 0 %; Platelet Count 233 10^3/uL (130-400); RBC 5.39 10^6/uL (4.36-5.78); RDW 12.6 % (11.8-14.1); WBC 10.13 10^3/uL (4.4-10.8)
== END 2021-03-11 04:02 | disposition home or self-care (01) ==
LOC: LBO 04:01
PROVIDERS: PCP Family Medicine; Visit Provider Psychiatry & Neurology Psychiatry
DX: Z79.899 Other long term (current) drug therapy (principal); F25.0 Schizoaffective disorder, bipolar type
CPT/HCPCS: 36415; 85025

== ENCOUNTER 2021-03-18 01:50 | Outpatient (CLI) | payer MEDICARE, MEDICAID, SELFPAY ==
[2021-03-18 14:35] LABS: Abs Immature Grans 0.08 10^3/uL (0.0-0.06); Absolute Basophil Count 0.05 10^3/uL (0.0-0.2); Absolute Eosinophil Count 0.22 10^3/uL (0.0-0.7); Absolute Lymphocyte Count 3.22 10^3/uL (1.2-3.4); Absolute Monocyte Count 0.76 10^3/uL (0.1-0.8); Absolute Neutrophil Count 6.51 10^3/uL (1.2-6.7); Basophils % 0.5; HCT 49.6 % (40.0-50.0); HGB 16.9 g/dL (13.5-17.5); Immature Grans % 0.7; Lymphocytes % 29.7; MCH 31.4 pg (27.0-33.0); MCHC 34.1 % (32.0-36.0); MPV 11.5 fL (8.0-11.0); Neutrophils % 60.1; Nucleated RBC 0 %; Platelet Count 246 10^3/uL (130-400); RBC 5.39 10^6/uL (4.36-5.78); RDW 12.3 % (11.8-14.1); RDW-SD 41.5 fL; WBC 10.83 10^3/uL (4.4-10.8)
== END 2021-03-18 01:51 | disposition home or self-care (01) ==
LOC: LBO 01:51
PROVIDERS: PCP Family Medicine; Visit Provider Psychiatry & Neurology Psychiatry
DX: F20.5 Residual schizophrenia (principal); Z79.899 Other long term (current) drug therapy
CPT/HCPCS: 36415; 85025

== ENCOUNTER 2021-03-25 03:04 | Outpatient (CLI) | payer MEDICARE, MEDICAID, SELFPAY ==
[2021-03-25 14:17] LABS: Abs Immature Grans 0.13 10^3/uL (0.0-0.06); Absolute Basophil Count 0.04 10^3/uL (0.0-0.2); Absolute Eosinophil Count 0.22 10^3/uL (0.0-0.7); Absolute Lymphocyte Count 3.66 10^3/uL (1.2-3.4); Absolute Monocyte Count 0.71 10^3/uL (0.1-0.8); Absolute Neutrophil Count 5.47 10^3/uL (1.2-6.7); Basophils % 0.4; Eosinophils % 2.2; HGB 17.3 g/dL (13.5-17.5); Immature Grans % 1.3; Lymphocytes % 35.8; MCH 30.9 pg (27.0-33.0); MCHC 33.3 % (32.0-36.0); Monocytes % 6.9; Neutrophils % 53.4; Nucleated RBC 0 %; Platelet Count 258 10^3/uL (130-400); RBC 5.59 10^6/uL (4.36-5.78); RDW 12.4 % (11.8-14.1); RDW-SD 42.5 fL; WBC 10.23 10^3/uL (4.4-10.8)
== END 2021-03-25 03:05 | disposition home or self-care (01) ==
LOC: LBO 03:04
PROVIDERS: PCP Family Medicine; Visit Provider Psychiatry & Neurology Psychiatry
DX: F25.0 Schizoaffective disorder, bipolar type (principal); Z79.899 Other long term (current) drug therapy
CPT/HCPCS: 36415; 85025

== ENCOUNTER 2021-04-15 04:03 | Outpatient (CLI) | payer MEDICARE, MEDICAID, SELFPAY ==
[2021-04-15 14:11] LABS: Abs Immature Grans 0.26 10^3/uL (0.0-0.06); Absolute Basophil Count 0.08 10^3/uL (0.0-0.2); Absolute Eosinophil Count 0.36 10^3/uL (0.0-0.7); Absolute Lymphocyte Count 3.15 10^3/uL (1.2-3.4); Absolute Neutrophil Count 5.49 10^3/uL (1.2-6.7); Basophils % 0.8; Eosinophils % 3.6; HCT 49.1 % (40.0-50.0); HGB 16.3 g/dL (13.5-17.5); Immature Grans % 2.6; Lymphocytes % 31.1; MCH 30.9 pg (27.0-33.0); MCHC 33.2 % (32.0-36.0); MCV 93.2 fL (80-95); MPV 10.5 fL (8.0-11.0); Monocytes % 7.9; Nucleated RBC 0 %; Platelet Count 265 10^3/uL (130-400); RBC 5.27 10^6/uL (4.36-5.78); RDW-SD 41.4 fL; WBC 10.14 10^3/uL (4.4-10.8)
== END 2021-04-15 04:04 | disposition home or self-care (01) ==
LOC: LBO 04:03
PROVIDERS: PCP Family Medicine; Visit Provider Psychiatry & Neurology Psychiatry
DX: F25.0 Schizoaffective disorder, bipolar type (principal); Z79.899 Other long term (current) drug therapy
CPT/HCPCS: 36415; 85025

== ENCOUNTER 2021-05-01 19:44 | Emergency (ER) | payer MEDICARE, MEDICAID, SELFPAY ==
--- NOTE | 2021-05-01 19:45 | DI.CT_ITS ---
Exam(s) CT HEAD WO EXAM: CT HEAD WO CLINICAL HISTORY: R eye vision changes. TECHNIQUE: Imaging Protocol: Axial computed tomography images with coronal and sagittal reformatted images were created and reviewed COMPARISON: CT CT HEAD WO from 11/13/2020 FINDINGS: Ventricles and Extra axial spaces: Normal in size and morphology for the patient's age. Hemorrhage: None. Cerebral parenchyma: Atrophy. Midline shift: None. Brainstem/Cerebellum: Normal. Calvarium: Normal. Visualized Paranasal sinuses/Mastoids: Clear. Soft Tissues: Unremarkable. IMPRESSION: No acute intracranial process. RADIATION DOSE DELIVERED: 875.97mGy.cm Total DLP DATA REPOSITORY: All CT scans at this facility are submitted to the National Radiology Data Registry (NRDR) Dose Index Registry (DIR) with the [employer] (ACR). RADIATION OPTIMIZATION: All CT scans at this facility use at least one of these dose optimization te chniques: automated exposure control; mA and/or kV adjustment per patient size (includes targeted exa ms where dose is matched to clinical indication); or iterative reconstruction.
[2021-05-01 19:47] VITALS: BP 143/69; PULSE 86; TEMP 36.1; O2SAT 95
--- NOTE | 2021-05-01 20:00 | ED.GENADUL_ITS ---
Discharge Plan Disposition Patient Disposition: HOME Condition: Improving Discharge Details Clinical Impression: Vitreous floaters of right eye Primary Care Provider: Nisha Carrillo ED Provider: Clinton Gardner Home Meds and New Rx's Prescriptions: Continued Eliquis 5 MG tablet 5 mg PO BID Qty: 180 RF: 12 clozapine 100 MG tablet 300 mg PO HS RF: 0 aspirin 81 MG tablet,chewable 81 mg PO DAILY RF: 0 sennosides [senna] 8.6 MG tablet 8.6 mg PO BID 1 Days RF: 0 atorvastatin [Lipitor] 10 MG tablet 10 mg PO HS RF: 0 divalproex 500 MG tablet extended release 24 hr 2,000 mg PO HS RF: 0 benztropine 1 MG tablet 1 mg PO BID RF: 0 thyroid (pork) [[place] Thyroid] 90 MG tablet 90 mg PO QAM RF: 0 melatonin 3 MG tablet extended release 3 mg PO HS RF: 0 Kristalose 20 GM packet 20 gm PO .QD PRN (Reason: Constipation) Qty: 3 RF: 0 ropinirole 1 mg Tablet 1 mg PO DAILY RF: 0 metformin 1,000 mg Tablet 1,000 mg PO BID RF: 0 albuterol sulfate [Ventolin HFA] 90 mcg/actuation Hfa Aerosol Inhaler INHALATION RF: 0 docusate sodium 100 mg capsule 200 mg PO BID RF: 0 lisinopril 5 mg tablet 5 mg PO DAILY RF: 0 doxycycline hyclate 100 mg capsule 100 mg PO BID Qty: 10 RF: 0 Discharge Instructions Additional Instructions: Our care management team will arrange a follow-up for you at [facility] for further examination. If you continue to have trouble with your phone call the emergency department at [phone] and ask to speak with care management on Thursday. Continue your routine medications. Your CAT scan this evening did not show any acute findings. Medical Decision Making This is a 60-year-old male schizophrenic with a history of diabetes who presents with 2 days of intermittent episodes of flashers and floaters of the right eye. No fall or headache. No change to vision. Visual acuity is preserved. Bedside funduscopic exam did not show significant abnormality but was limited. Patient referred for CT scan of the head to rule out underlying mass or hemorrhage. CT CT scan unremarkable for acute process. Please see the formal report. I am concerned for posterior vitreous detachment. We will refer the patient to [facility] for dilated examination. Discussed with the patient. He is stable and appropriate for outpatient management at this time. 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 HPI General Mode of arrival: ambulatory . Date/Time Provider Initiated Documentation: 05/01/21 19:44 . Limitations to Documentation: no limitations . Information obtained by: patient . History of Present Illness 60 year old M presents to the emergency department with the chief complaint of Right eye vision changes x2 days, described as mild, and is localized to the eyes and right. Patient reports no radiation. Patient started experiencing this day(s) and it has been intermittent. No relieving factors improve symptom(s), No exacerbating factors reported . Patient notes denies headaches and syncope. Patient did receive the following treatments prior to arrival, none Related Data Home Medications Medication Instructions Recorded Confirmed atorvastatin [Lipitor] 10 mg PO HS 01/23/16 04/21/20 benztropine 1 mg PO BID 01/23/16 04/21/20 divalproex 2,000 mg PO HS 01/23/16 11/14/20 melatonin 3 mg PO HS 01/23/16 11/13/20 thyroid (pork) [[place] Thyroid] 90 mg PO QAM 01/23/16 11/13/20 Kristalose 20 gm PO .QD PRN #3 packet 01/05/17 04/21/20 Eliquis 5 mg PO BID #180 tab 07/20/17 11/13/20 aspirin 81 mg PO DAILY tab-cap 07/28/17 04/21/20 clozapine 300 mg PO HS tab-cap 07/28/17 11/14/20 sennosides [senna] 8.6 mg PO BID 1 Days 07/28/17 11/13/20 albuterol sulfate [Ventolin HFA] INHALATION 03/27/19 metformin 1,000 mg PO BID 03/27/19 11/13/20 ropinirole 1 mg PO DAILY 03/27/19 11/13/20 docusate sodium 200 mg PO BID 11/13/20 11/13/20 lisinopril 5 mg PO DAILY 11/13/20 11/13/20 doxycycline hyclate 100 mg PO BID #10 cap 11/15/20 Previous Rx's Medication Instructions Recorded Kristalose 20 gm PO .QD PRN #3 packet 01/05/17 Eliquis 5 mg PO BID #180 tab 07/20/17 doxycycline hyclate 100 mg PO BID #10 cap 11/15/20 Allergies Allergy/AdvReac Type Severity Reaction Status Date / Time Penicillins AdvReac Intermediate black out Unverified 05/01/21 19:52 gabapentin AdvReac Mild Headache Unverified 05/01/21 19:52 niacin AdvReac Mild turn red Unverified 05/01/21 19:52 General Stated Complaint: EyeProblem MARY: 3 Review of Systems Narrative: 6 systems reviewed and otherwise negative [facility] Active Problem List (Updated 05/01/21 @ 21:01 by Clinton Gardner MD) Vitreous floaters of right eye (Acute) Hyperthermia associated with heat (Acute) BRENNEN (acute kidney injury) (Acute) Syncope (Acute) Non-ST elevation [place] (NSTEMI) (Acute) Dehydration (Acute) Screening for colorectal cancer (Acute) Medical History (Updated 05/01/21 @ 21:01 by Clinton Gardner MD) Bipolar disorder Chronic schizophrenia Diabetes mellitus, type 2 Obesity Surgical History Colonoscopy - MAC (01/25/16) 2011 Excision, Lipoma Hx of cholecystectomy Hydrocelectomy Tonsillectomy Family History Mother No problems noted. Father Heart disease Brother Alcohol abuse Social History Smoking/Tobacco Use Status: Current-Occasional Tobacco Type: cigarettes Smoking risk assessment performed?: Yes Drug use: Never Substance use type: does not use Do you feel safe at home: Yes Do you feel safe in your relationship?: Yes Exam Narrative Exam Narrative: GEN: awake, alert, oriented 3. Pleasant, well groomed, interactive. HEAD: Normocephalic, atraumatic ENT: Mucous membranes moist, oropharynx unremarkable, External ear exam unremarkable EYES: PERRL, EOMI, visual acuity per nursing notes NECK: Full ROM, no BAM, no menigismus CHEST/RESP: Nontender, clear to auscultation bilateral, no wheeze/rhonchi/rales CARDIOVASCULAR: RRR, no murmur, rub sharri. 2+ Rad pulse bilateral EXT: Full ROM, no edema, no rash Neuro: Grossly normal neurologic exam, conversant, interactive. Psych: Speech fluent, thoughts congruent, affect normal Course Vital Signs Vital signs: Vital Signs Temperature 36.1 C L 05/01/21 19:47 Pulse 86 05/01/21 19:47 Blood Pressure 143/69 H 05/01/21 19:47 Pulse Oximetry 95 05/01/21 19:47 Temperature 36.1 C L 05/01/21 19:47 Temperature Source Skin 05/01/21 19:47 Pulse 86 05/01/21 19:47 Respiratory Effort 05/01/21 19:53 Blood Pressure 143/69 H 05/01/21 19:47 Pulse Oximetry 95 05/01/21 19:47 Oxygen Delivery Method Room Air 05/01/21 19:47 Oxygen Flow Rate 0 05/01/21 19:47 Pain Level 0 05/01/21 19:47 Comment 05/01/21 19:47
--- NOTE | 2021-05-01 21:00 | DI.VRAD_ITS ---
PROCEDURE INFORMATION: Exam: CT Head Without Contrast Exam date and time: 05/01/2021 8:00 PM Age: 60 years old Clinical indication: RT vision changes TECHNIQUE: Imaging protocol: Computed tomography of the head without contrast. COMPARISON: CT HEAD WO 11/13/2020 5:45 PM FINDINGS: Brain: Age-related involutional changes and chronic microvascular ischemic disease. No evidence for acute transcortical infarct. No mass effect or midline shift. No extra-axial collection. No acute intracranial hemorrhage. Basal cisterns are patent. Cerebral ventricles: No ventriculomegaly. Paranasal sinuses: Visualized sinuses are unremarkable. No fluid levels. Mastoid air cells: Visualized mastoid air cells are well aerated. Bones/joints: Unremarkable. No acute fracture. Soft tissues: Unremarkable. IMPRESSION: No evidence for acute transcortical infarct, acute intracranial hemorrhage, or mass effect. Dictated and Authenticated by: Chuck Billingsley MD. Ordering:ARIELLE Alonzo MD
--- NOTE | 2021-05-01 21:07 | NUR.NOTE ---
Referral to Care Management and [facility], he is having phone problems and will call for help making his appt with [facility]. DX Floaters, Flashers, ?Vitreous.Nursing Note:
--- NOTE | 2021-05-06 10:02 | CMPROGNOTE_ITS ---
- If Service Date Differs Date of service: 05/06/21 Time of Service: 10:02 Care Management Progress Note Judd is seen in the ED for a vitreous floater of his right eye. At the request of ED provider, PAULO assists Judd in scheduling an appointment with [facility]. An appointment is made with Dr. Davy Giraldo on Saturday, May 08, 2021 at 11:00 am. Judd is advised of the appointment date and time.
== END 2021-05-01 21:10 | disposition home or self-care (01) ==
PROVIDERS: Emergency Provider Emergency Medicine; PCP Family Medicine
DX: H43.391 Other vitreous opacities, right eye (principal)
CPT/HCPCS: 99284; 70450; 99283

== ENCOUNTER 2021-05-07 03:14 | Outpatient (CLI) | payer MEDICARE, MEDICAID, SELFPAY ==
[2021-05-07 14:10] LABS: Abs Immature Grans 0.04 10^3/uL (0.0-0.06); Absolute Basophil Count 0.03 10^3/uL (0.0-0.2); Absolute Lymphocyte Count 0.97 10^3/uL (1.2-3.4); Absolute Monocyte Count 0.88 10^3/uL (0.1-0.8); Absolute Neutrophil Count 4.56 10^3/uL (1.2-6.7); Basophils % 0.5; Eosinophils % 1.5; HCT 48.3 % (40.0-50.0); HGB 15.9 g/dL (13.5-17.5); Immature Grans % 0.6; Lymphocytes % 14.7; MCH 30.9 pg (27.0-33.0); MCHC 32.9 % (32.0-36.0); MCV 93.8 fL (80-95); MPV 11.7 fL (8.0-11.0); Monocytes % 13.4; Neutrophils % 69.3; Nucleated RBC 0 %; Platelet Count 151 10^3/uL (130-400); RBC 5.15 10^6/uL (4.36-5.78); RDW-SD 45.2 fL; WBC 6.58 10^3/uL (4.4-10.8)
== END 2021-05-07 03:15 | disposition home or self-care (01) ==
LOC: LBO 03:14
PROVIDERS: PCP Family Medicine; Visit Provider Psychiatry & Neurology Psychiatry
DX: Z79.899 Other long term (current) drug therapy (principal); F25.0 Schizoaffective disorder, bipolar type
CPT/HCPCS: 36415; 85025

== ENCOUNTER 2021-05-13 10:16 | Inpatient (IN) | payer MEDICARE, MEDICAID, SELFPAY ==
[2021-05-13] VITALS (100 sets, daily range): BP systolic 101–122; BP diastolic 42–80; PULSE 68–115; RESP 17–37; TEMP 34–37.4; O2SAT 86–95
--- NOTE | 2021-05-13 10:15 | DI.RAD_ITS ---
Exam(s) XR PORTABLE CHEST AP EXAM: XR PORTABLE CHEST AP CLINICAL HISTORY: fever, cough, weak, r/o acute disease. TECHNIQUE: 2D digital imaging was performed. COMPARISON: CR XR PORTABLE CHEST AP from 11/14/2020 FINDINGS: Cardiomegaly again noted. Chest leads in place. Mediastinum is not widened. Infiltrates noted in both lungs, more so than on the prior study. No pulmonary edema. No obvious pl eural effusions. IMPRESSION: Infiltrates bilaterally. Recommend testing for Covid-19pneumonia. Cardiomegaly. No obvious pulmonary edema nor obvious pleural effusions.. DATA REPOSITORY: RADIATION DOSE DELIVERED: All CT scans at this facility use at least one of these dose optimization techniques: automated exposure control; mA and/or kV adjustment per patient size (includes targeted e xams where dose is matched to clinical indication); or iterative reconstruction.
--- NOTE | 2021-05-13 10:17 | ED.GENADUL_ITS ---
Discharge Plan Disposition Patient Disposition: [facility] INPATIENT Condition: Stable Discharge Details Clinical Impression: Pneumonia due to COVID-19 virus, Hypoxia, Requires supplemental oxygen, Rhabdomyolysis, Generalized weakness Admit Date/Time: 05/13/21 12:12 Admit Provider: Daksha Lopez Attending Provider: Daksha Lopez Primary Care Provider: Nisha Carrillo ED Provider: Kelley Borges Discharge Data Discharge Date/Time-TO BE ENTERED AT DEPARTURE: 05/13/21 13:17 Medical Decision Making 58-year-old male with a history of obesity, type 2 diabetes, schizophrenia, atrial fibrillation presents from home for generalized weakness for the past few days, intermittent cough and shortness of breath and found on floor today by [employer]. He states he had been lying on the ground for the past 4 hours due to weakness. Denies any trauma. EMS reported an O2 sat of 90% on 5 L. Patient currently denies any shortness of breath. He has coarse breath sounds and wheezing throughout. Oxygen saturation 91% on 3 L. He appears generally fatigued but nontoxic and is in no respiratory distress. Screening labs and imaging obtained on arrival. Covid swab resulted positive. 3 attempts at ABG unsuccessful. Lactate 1.7. Normal electrolytes. CK 2512. Troponin negative. Chest x-ray notes Covid pneumonia. We will give a bolus IV fluids, DuoNeb, Solu-Medrol, and admit for Covid pneumonia in the setting of oxygen requirement for antiviral treatment, IV steroids. Case discussed with hospitalist who accepts patient for admission. EKG not yet obtained prior to transfer to the floor. Heart rate mid 90s, afib on monitor. Medical Records Medical records reviewed: Yes I reviewed the patient's medical records. Imaging Data Radiologic Study: Radiologist's impression: XR PORTABLE CHEST AP CLINICAL HISTORY: fever, cough, weak, r/o acute disease. TECHNIQUE: 2D digital imaging was performed. COMPARISON: CR XR PORTABLE CHEST AP from 11/14/2020 FINDINGS: Cardiomegaly again noted. Chest leads in place. Mediastinum is not widened. Infiltrates noted in both lungs, more so than on the prior study. No pulmonary edema. No obvious pleural effusions. IMPRESSION: Infiltrates bilaterally. Recommend testing for Covid-19pneumonia. Cardiomegaly. No obvious pulmonary edema nor obvious pleural effusions.. Lab Data Lab results reviewed: Yes I reviewed the patient's lab results. Labs: 05/13/21 10:40 Blood Blood Culture - Pending Laboratory Tests Range/Units 05/13/21 05/13/21 05/13/21 10:30 10:40 10:40 WBC (4.4-10.8) 10^3/uL RBC (4.36-5.78) 10^6/uL Hgb (13.5-17.5) g/dL Hct (40.0-50.0) % MCV (80-95) fL MCH (27.0-33.0) pg MCHC (32.0-36.0) % RDW (11.8-14.1) % Plt Count (130-400) 10^3/uL MPV (8.0-11.0) fL Immature Gran % Neutrophils % Lymphocytes % Monocytes % Eosinophils % Basophils % Nucleated RBC % % Absolute Neutrophils (1.2-6.7) 10^3/uL Absolute Lymphocytes (1.2-3.4) 10^3/uL Absolute Monocytes (0.1-0.8) 10^3/uL Absolute Eosinophils (0.0-0.7) 10^3/uL Absolute Basophils (0.0-0.2) 10^3/uL VBG Lactate (0.6-1.4) mmol/L 1.7 H Sodium (136-145) mmol/L 142 Potassium (3.5-5.1) mmol/L 3.9 Chloride (98-107) mmol/L 103 Carbon Dioxide (21.0-32.0) mmol/L 28.0 Anion Gap (3-11) mmol/L 11.0 BUN (7-18) mg/dL 22 H Creatinine (0.70-1.30) mg/dL 1.2 Estimated GFR/1.73 m2 (mL/min/1.73m2) >= 60.00 Glucose (74-106) mg/dL 180 H Calcium (8.5-10.1) mg/dL 9.4 Magnesium (1.8-2.4) mg/dL 2.2 Total Bilirubin (0.2-1.0) mg/dL 0.5 AST (15-37) U/L 99 H ALT (16-63) U/L 46 Alkaline Phosphatase (46-116) U/L 46 Creatine Kinase (39-308) U/L 2512 H Troponin I (<0.06) ng/mL < 0.05 Total Protein (6.4-8.2) g/dL 8.4 H Albumin (3.4-5.0) g/dL 3.1 L Procalcitonin ng/mL 0.1 COVID-19 Source Nasal/Nares SARS-CoV-2 (PCR) (Negative) POSITIVE A* Range/Units 05/13/21 10:40 WBC (4.4-10.8) 10^3/uL 8.28 RBC (4.36-5.78) 10^6/uL 5.51 Hgb (13.5-17.5) g/dL 16.8 Hct (40.0-50.0) % 50.4 H MCV (80-95) fL 91.5 MCH (27.0-33.0) pg 30.5 MCHC (32.0-36.0) % 33.3 RDW (11.8-14.1) % 13.1 Plt Count (130-400) 10^3/uL 198 MPV (8.0-11.0) fL 10.8 Immature Gran % 1.6 Neutrophils % 76.9 Lymphocytes % 14.0 Monocytes % 7.1 Eosinophils % 0.0 Basophils % 0.4 Nucleated RBC % % 0 Absolute Neutrophils (1.2-6.7) 10^3/uL 6.37 Absolute Lymphocytes (1.2-3.4) 10^3/uL 1.16 L Absolute Monocytes (0.1-0.8) 10^3/uL 0.59 Absolute Eosinophils (0.0-0.7) 10^3/uL 0.00 Absolute Basophils (0.0-0.2) 10^3/uL 0.03 VBG Lactate (0.6-1.4) mmol/L Sodium (136-145) mmol/L Potassium (3.5-5.1) mmol/L Chloride (98-107) mmol/L Carbon Dioxide (21.0-32.0) mmol/L Anion Gap (3-11) mmol/L BUN (7-18) mg/dL Creatinine (0.70-1.30) mg/dL Estimated GFR/1.73 m2 (mL/min/1.73m2) Glucose (74-106) mg/dL Calcium (8.5-10.1) mg/dL Magnesium (1.8-2.4) mg/dL Total Bilirubin (0.2-1.0) mg/dL AST (15-37) U/L ALT (16-63) U/L Alkaline Phosphatase (46-116) U/L Creatine Kinase (39-308) U/L Troponin I (<0.06) ng/mL Total Protein (6.4-8.2) g/dL Albumin (3.4-5.0) g/dL Procalcitonin ng/mL COVID-19 Source SARS-CoV-2 (PCR) (Negative) ECG Data Attestation: I personally reviewed and interpreted this ECG (s) as follows: HPI General Mode of arrival: EMS . Date/Time Provider Initiated Documentation: 05/13/21 10:55 . Limitations to Documentation: no limitations . Information obtained by: patient . HPI Narrative: Patient is a 60-year-old male with a history of type 2 diabetes and hernia presents from home for generalized weakness for the past few days and found on the floor today by [employer]. Patient states she has felt generally unwell for the past 4 to 5 days, decreased appetite, cough with occasional shortness of breath. Patient mainly feels fatigued and weakness now. He currently denies any shortness of breath. He states he has had felt feverish but did not take his temperature. He has had intermittent diarrhea but this has stopped since stopping taking his senna. He has a neighbor who recently was diagnosed with Covid who he was exposed to recently but states he was only talking to her while wearing a mask. He was fully vaccinated as of last spring but has not yet received a booster. Related Data Home Medications Medication Instructions Recorded Confirmed atorvastatin [Lipitor] 10 mg PO QPM 01/23/16 05/13/21 divalproex 2,000 mg PO HS 01/23/16 05/13/21 melatonin 3 mg PO HS PRN 01/23/16 05/13/21 thyroid (pork) [[place] Thyroid] 90 mg PO QAM 01/23/16 05/13/21 Eliquis 5 mg PO BID #180 tab 07/20/17 05/13/21 clozapine 300 mg PO HS tab-cap 07/28/17 05/13/21 sennosides [senna] 8.6 mg PO BID PRN 1 Days 07/28/17 05/13/21 albuterol sulfate [Ventolin HFA] 2 puff INHALATION Q4H PRN 03/27/19 05/13/21 metformin 1,000 mg PO BID 03/27/19 05/13/21 ropinirole 1 mg PO DIRECTED 03/27/19 05/13/21 docusate sodium 200 mg PO BID PRN 11/13/20 05/13/21 lisinopril 5 mg PO DAILY 11/13/20 05/13/21 calcium carbonate [Tums 500] 500 mg PO TID 05/13/21 05/13/21 fluticasone propionate 1 spray INTRANASAL Q12H 05/13/21 05/13/21 loratadine 10 mg PO DAILY PRN 05/13/21 05/13/21 Previous Rx's Medication Instructions Recorded Eliquis 5 mg PO BID #180 tab 07/20/17 Allergies Allergy/AdvReac Type Severity Reaction Status Date / Time Penicillins AdvReac Intermediate black out Unverified 05/13/21 12:41 gabapentin AdvReac Mild Headache Unverified 05/13/21 12:41 niacin AdvReac Mild turn red Unverified 05/13/21 12:41 General MARY: 3 Review of Systems All systems reviewed & are unremarkable except as noted in HPI and below Constitutional Constitutional: Reports as per HPI, Denies chills, Denies fever(s), Reports poor appetite and Reports weakness Eyes Eyes: Denies blurry vision ENT Ears, Nose, Mouth, and Throat: Denies dizziness, Denies sore throat and Denies throat swelling Cardiovascular Cardiovascular: Denies chest pain and Reports dyspnea Respiratory Respiratory: Reports cough and Reports dyspnea Gastrointestinal Gastrointestinal: Denies abdominal pain, Denies diarrhea and Denies vomiting Genitourinary Genitourinary: Denies hematuria and Denies dysuria Musculoskeletal Musculoskeletal: Denies back pain and Denies numbness Integumentary/Breasts Skin/Breast: Denies lesions and Denies rash Neurologic Neurologic: Denies dizziness, Denies localized weakness, Denies numbness and Reports weakness Allergic/Immunologic Allergic/Immunologic: Denies throat swelling [facility] Active Problem List (Updated 05/13/21 @ 12:30 by Daksha Lopez MD) Discharge planning issues (Acute) DVT prophylaxis (Acute) Ambulatory dysfunction (Acute) Vitreous floaters of right eye (Acute) Pneumonia due to COVID-19 virus (Acute) Hypoxia (Acute) Requires supplemental oxygen (Acute) Rhabdomyolysis (Acute) Generalized weakness (Acute) Hyperthermia associated with heat (Acute) BRENNEN (acute kidney injury) (Acute) Syncope (Acute) Non-ST elevation [place] (NSTEMI) (Acute) Dehydration (Acute) Screening for colorectal cancer (Acute) Medical History (Updated 05/13/21 @ 12:30 by Daksha Lopez MD) Bipolar disorder Chronic schizophrenia Diabetes mellitus, type 2 Obesity Surgical History Colonoscopy - MAC (01/25/16) 2010 Excision, Lipoma Hx of cholecystectomy Hydrocelectomy Tonsillectomy Family History Mother No problems noted. Father Heart disease Brother Alcohol abuse Social History Smoking/Tobacco Use Status: Current-Occasional Tobacco Type: cigarettes Smoking risk assessment performed?: Yes Alcohol Intake: current Alcohol Intake frequency: holidays/special occasions only Alcohol type: beer and hard liquor Drug use: Never Substance use type: does not use Do you feel safe at home: Yes Do you feel safe in your relationship?: Yes Exam Const General: cooperative and no acute distress HENMT Head: normal to inspection Face and sinus: normal facial exam Mouth: mucous membranes dry Eyes General: appearance normal, both eyes and all related structures Pupils: PERRL EOM: EOM intact bilaterally Neck Neck: normal visual inspection and No submandibular swelling Lymphatic: no lymphadenopathy noted Chest Chest: normal inspection of the chest and no tenderness Resp Effort & Inspection: normal respiratory effort and able to speak in complete sentences Auscultation: rhonchi upper bilaterally and lower bilaterally and wheezes expiratory wheezes Cardio Rate: regular rate Rhythm: regular rhythm GI Inspection: normal to inspection Palpation: soft, not firm, not rigid and nontender Auscultation: normal bowel sounds Skin General skin exam: no rashes or lesions noted Neuro General: patient alert, patient awake and patient oriented x3 Cognition: normal cognition Speech: speech normal Motor: muscle tone normal throughout Sensory Exam: no sensory deficits noted Extrem General: normal to inspection, full ROM, capillary refill normal, no calf tenderness bilaterally and no edema Psych Appearance: grossly normal Mental Status: mental status grossly normal Speech and Movement: speech and movement normal Affect: normal affect Course Lab/Test Results Lab/Test Results: 05/13/21 10:15 Blood Blood Culture - Pending 05/13/21 10:15 Blood Blood Culture - Pending
[2021-05-13 10:46] LABS: Source Nasal/Nares
[2021-05-13 10:48] LABS: Lactate 1.7 mmol/L (0.6-1.4)
[2021-05-13 10:52] LABS: Abs Immature Grans 0.13 10^3/uL (0.0-0.06); Absolute Basophil Count 0.03 10^3/uL (0.0-0.2); Absolute Lymphocyte Count 1.16 10^3/uL (1.2-3.4); Absolute Monocyte Count 0.59 10^3/uL (0.1-0.8); Absolute Neutrophil Count 6.37 10^3/uL (1.2-6.7); Basophils % 0.4; HCT 50.4 % (40.0-50.0); HGB 16.8 g/dL (13.5-17.5); Immature Grans % 1.6; MCH 30.5 pg (27.0-33.0); MCHC 33.3 % (32.0-36.0); MCV 91.5 fL (80-95); MPV 10.8 fL (8.0-11.0); Monocytes % 7.1; Neutrophils % 76.9; Nucleated RBC 0 %; Platelet Count 198 10^3/uL (130-400); RBC 5.51 10^6/uL (4.36-5.78); RDW 13.1 % (11.8-14.1); RDW-SD 44.6 fL; WBC 8.28 10^3/uL (4.4-10.8)
[2021-05-13 11:17] LABS: ALT 46 U/L (16-63); AST 99 U/L (15-37); Albumin 3.1 g/dL (3.4-5.0); Alkaline Phosphatase 46 U/L (46-116); BUN 22 mg/dL (7-18); Bilirubin, Total 0.5 mg/dL (0.2-1.0); CREATININE 1.2 mg/dL (0.70-1.30); Calcium 9.4 mg/dL (8.5-10.1); Chloride 103 mmol/L (98-107); Glucose 180 mg/dL (74-106); Magnesium 2.2 mg/dL (1.8-2.4); Potassium 3.9 mmol/L (3.5-5.1); Sodium 142 mmol/L (136-145); Total Protein 8.4 g/dL (6.4-8.2)
[2021-05-13 11:18] LABS: Creatine Kinase 2512 U/L (39-308); Troponin I < 0.05 ng/mL (<0.06)
[2021-05-13 11:28] LABS: COVID-19 PCR POSITIVE (Negative)
[2021-05-13 11:52] LABS: Procalcitonin 0.1 ng/mL
[2021-05-13] MEDS: methylPREDNISolone SUCC 125 MG VIAL IVP (12:21)
[2021-05-13] MEDS: Albuterol/Ipratropium 3 ML UPD VIAL UPD (12:21)
[2021-05-13] MEDS: Normal Saline 1,000 ML 1000 ML IV (12:21)
[2021-05-13] MEDS: Normal Saline Flush 10 ML SYR IVP ×3 (12:22→17:29)
--- NOTE | 2021-05-13 12:23 | HPE_ITS ---
Date of service: 05/13/21 Time of Service: 15:15 Assessment and Plan Assessment and plan (1) Pneumonia due to COVID-19 virus: Status: Acute Assessment and plan: Transfer to the ICU due to increased O2 requirements. Treat with remdesivir, dexamethasone, baricitinib, vitamin C and D supplementation, zinc, antitussives. IS/acapella. Encourage proning. (2) Hypoxia: Status: Acute Assessment and plan: As above (3) Rhabdomyolysis: Status: Acute Assessment and plan: Treat with conservative IVF. Hold statin. Trend CPK and monitor kidney function. (4) Ambulatory dysfunction: Status: Acute Assessment and plan: C/s PT (5) DVT prophylaxis: Status: Acute Assessment and plan: On therapeutic eliquis (?indication) (6) Discharge planning issues: Status: Acute Assessment and plan: Full code as per my discussion with the patient. Critical Care Time 60 minutes. History of Present Illness History of Present Illness Chief Complaint: generalized weakness Narrative: Mr Hathaway is a 60 year old male with PMHx of NIDDM2, obesity with BMI of 30.5, schizophrenia, bipolar disorder, who is vaccinated against COVID-19, but has not yet gotten his booster, who was found by meals on wheels today laying on the floor, unable to get up for 4 hrs. EMS stated that the patient required 5L of O2 to bring his O2 sats to above 90%. In the ED, he is requiring around 4L, desaturating to 88% on 3L. He tested positive for COVID-19 and is found to be in rhabdomyolysis. He was initiated on systemic steroids and IVF. Hospitalist admission was requested. Since arrival to the floor, the patient's oxygen requirement has gone up to 6 L. He does not feel short of breath. He is being transferred to the ICU for initiation of CPAP therapy. The patient states that he has been sick for 3-4 days, primarily describing being too weak to go to the fridge to eat. He states he has been drinking water. He has not been able to take his medications for the last 3-4 days. He denies headache, endorses decreased senses of taste or smell. Denies chest pain, nausea, diarrhea. Review of Systems All systems reviewed & are unremarkable except as noted in HPI and below [facility] Active Problem List (Updated 05/13/21 @ 12:30 by Daksha Lopez MD) Discharge planning issues (Acute) DVT prophylaxis (Acute) Ambulatory dysfunction (Acute) Vitreous floaters of right eye (Acute) Pneumonia due to COVID-19 virus (Acute) Hypoxia (Acute) Requires supplemental oxygen (Acute) Rhabdomyolysis (Acute) Generalized weakness (Acute) Hyperthermia associated with heat (Acute) BRENNEN (acute kidney injury) (Acute) Syncope (Acute) Non-ST elevation [place] (NSTEMI) (Acute) Dehydration (Acute) Screening for colorectal cancer (Acute) Medical History (Updated 05/13/21 @ 12:30 by Daksha Lopez MD) Bipolar disorder Chronic schizophrenia Diabetes mellitus, type 2 Obesity Surgical History Colonoscopy - MAC (01/25/16) 2010 Excision, Lipoma Hx of cholecystectomy Hydrocelectomy Tonsillectomy Family History Mother No problems noted. Father Heart disease Brother Alcohol abuse Social History Smoking/Tobacco Use Status: Current-Occasional Tobacco Type: cigarettes Smoking risk assessment performed?: Yes Alcohol Intake: current Alcohol Intake frequency: holidays/special occasions only Alcohol type: beer and hard liquor Drug use: Never Substance use type: does not use Do you feel safe at home: Yes Do you feel safe in your relationship?: Yes Meds Allergies and Home Medications Allergies Allergy/AdvReac Type Severity Reaction Status Date / Time Penicillins AdvReac Intermediate black out Unverified 05/13/21 12:41 gabapentin AdvReac Mild Headache Unverified 05/13/21 12:41 niacin AdvReac Mild turn red Unverified 05/13/21 12:41 Home Medications Medication Instructions Recorded Confirmed Type atorvastatin [Lipitor] 10 mg PO QPM 01/23/16 05/13/21 History divalproex 2,000 mg PO HS 01/23/16 05/13/21 History melatonin 3 mg PO HS PRN 01/23/16 05/13/21 History thyroid (pork) [[place] Thyroid] 90 mg PO QAM 01/23/16 05/13/21 History Eliquis 5 mg PO BID #180 tab 07/20/17 05/13/21 Rx clozapine 300 mg PO HS tab-cap 07/28/17 05/13/21 History sennosides [senna] 8.6 mg PO BID PRN 1 Days 07/28/17 05/13/21 History albuterol sulfate [Ventolin HFA] 2 puff INHALATION Q4H PRN 03/27/19 05/13/21 History metformin 1,000 mg PO BID 03/27/19 05/13/21 History ropinirole 1 mg PO DIRECTED 03/27/19 05/13/21 History docusate sodium 200 mg PO BID PRN 11/13/20 05/13/21 History lisinopril 5 mg PO DAILY 11/13/20 05/13/21 History calcium carbonate [Tums 500] 500 mg PO TID 05/13/21 05/13/21 History fluticasone propionate 1 spray INTRANASAL Q12H 05/13/21 05/13/21 History loratadine 10 mg PO DAILY PRN 05/13/21 05/13/21 History Exam Narrative Exam Narrative: General: Pleasant middle-aged male without dypsnea/tachypnea/cyanosis on my exam while on 6L of O2 by [place] Neurological: A&Ox3, no focal deficits Psychiatric: Appropriate speech pattern/content Skin: Visible skin intact HEENT: Atraumatic, normocephalic, EOMI, dry MM, clear oropharynx, no submandibular or cervical lymphadenopathy, no goiter or JVD Cardiovascular: RRR, no m/r/g Lungs: wheezing on expiration B Gastrointestinal: soft, nontender, nondistended Genitourinary: deferred Extremities: trace edema BLE's Results Imaging Additional studies: CXR; Infiltrates bilaterally. Recommend testing for Covid-19pneumonia. Cardiomegaly. No obvious pulmonary edema nor obvious pleural effusions.. Labs Result diagrams: 05/13/21 10:40 05/13/21 10:40 Labs: Laboratory Results - last 24 hr 05/13/21 05/13/21 05/13/21 10:30 10:40 10:40 WBC RBC Hgb Hct MCV MCH MCHC RDW Plt Count MPV Immature Gran % Neutrophils % Lymphocytes % Monocytes % Eosinophils % Basophils % Nucleated RBC % Absolute Neutrophils Absolute Lymphocytes Absolute Monocytes Absolute Eosinophils Absolute Basophils VBG Lactate 1.7 H Sodium 142 Potassium 3.9 Chloride 103 Carbon Dioxide 28.0 Anion Gap 11.0 BUN 22 H Creatinine 1.2 Estimated GFR/1.73 m2 >= 60.00 Glucose 180 H Calcium 9.4 Magnesium 2.2 Total Bilirubin 0.5 AST 99 H ALT 46 Alkaline Phosphatase 46 Creatine Kinase 2512 H Troponin I < 0.05 Total Protein 8.4 H Albumin 3.1 L Procalcitonin 0.1 COVID-19 Source Nasal/Nares SARS-CoV-2 (PCR) POSITIVE A* 05/13/21 10:40 WBC 8.28 RBC 5.51 Hgb 16.8 Hct 50.4 H MCV 91.5 MCH 30.5 MCHC 33.3 RDW 13.1 Plt Count 198 MPV 10.8 Immature Gran % 1.6 Neutrophils % 76.9 Lymphocytes % 14.0 Monocytes % 7.1 Eosinophils % 0.0 Basophils % 0.4 Nucleated RBC % 0 Absolute Neutrophils 6.37 Absolute Lymphocytes 1.16 L Absolute Monocytes 0.59 Absolute Eosinophils 0.00 Absolute Basophils 0.03 VBG Lactate Sodium Potassium Chloride Carbon Dioxide Anion Gap BUN Creatinine Estimated GFR/1.73 m2 Glucose Calcium Magnesium Total Bilirubin AST ALT Alkaline Phosphatase Creatine Kinase Troponin I Total Protein Albumin Procalcitonin COVID-19 Source SARS-CoV-2 (PCR) Last Vital Signs Temp 37.4 C 05/13/21 10:31 Pulse 95 H 05/13/21 12:21 Resp 31 H 05/13/21 12:21 BP 120/68 05/13/21 10:31 Pulse Ox 90 L 05/13/21 12:21
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
--- NOTE | 2021-05-13 13:33 | PDOC.CMIN ---
- If Service Date Differs Date of service: 05/13/21 Time of Service: 13:33 Care Management Initial Assess PAST MEDICAL HISTORY/PAST SURGICAL HISTORY:: Active Problem List: Discharge planning issues (Acute), DVT prophylaxis (Acute), Ambulatory dysfunction (Acute), Vitreous floaters of right eye (Acute), Pneumonia due to COVID-19 virus (Acute), Hypoxia (Acute),. Requires supplemental oxygen (Acute), Rhabdomyolysis (Acute), Generalized weakness (Acute), Hyperthermia associated with heat (Acute), BRENNEN (acute kidney injury) (Acute), Syncope (Acute), Non-ST elevation [place] (NSTEMI) (Acute), Dehydration (Acute), and Screening for colorectal cancer (Acute). Medical History: Bipolar disorder, Chronic schizophrenia, Diabetes mellitus, type 2, and Obesity. Surgical History: Colonoscopy - MAC (01/25/16) - 2010, Excision, Lipoma,. Hx of cholecystectomy, Hydrocelectomy, and Tonsillectomy. PREVIOUS FUNCTIONAL STATUS/SOCIAL/FAMILY SUPPORTS:: Judd lives alone in an apartment in [facility]. He receives services through the [employer] [facility] at [facility] and Nessa Bautista is his bottle caser. He has daily medication drops through the [employer] [facility] and gets Me[employer] Whe[employer] but is independent with his ADLs at baseline. CURRENT FUNCTIONAL STATUS:: CM is unable to meet with Judd as he is on Covid precautions. CM will attempt to reach him by telephone once he has settled into his room on Med/Surg. ADVANCE DIRECTIVES:: On file; Chika Enamorado is appointed as Health Care Agent. Has patient been provided with info about the portal/API?: Yes Did the patient sign up for the portal?: No CODE STATUS:: Full Code INSURANCE COVERAGE / FINANCIAL ISSUES:: Medicare, Medicaid. CURRENT HOME/COMMUNITY SERVICES/EQUIPMENT:: Judd has support in the community through [employer] and [facility] [employer], including medication management. PRIMARY CARE PHYSICIAN:: Nisha Carrillo MD. POTENTIAL DISCHARGE NEEDS:: Follow up appointment with PCP and plan of care. PATIENT/FAMILY EDUCATION NEEDS:: Review discharge instructions, limitations, and follow up plan of care; discussion of [employer] and self management. ANTICIPATED BARRIERS TO DISCHARGE:: None identified at this time. TRANSPORTATION:: Via ambulance vs. RCT depending on Covid status. PLAN:: Judd will likely be discharged home when medically cleared by provider. He will follow up with his PCP, community providers, and plan of care as directed. He will be transported home via ambulance vs. RCT depending on Covid status. CM will continue to follow.
[2021-05-13] MEDS: Lactated Ringers 1,000 ML 100 ML IV (14:03)
[2021-05-13] MEDS: REMDESIVIR 200 MG in Normal Saline 250 ML 250 MG IVPB (14:17)
[2021-05-13] MEDS: Benzonatate 100 MG CAP PO ×2 (14:17→21:30)
--- NOTE | 2021-05-13 14:42 | PHACLINREV_ITS ---
Pharmacy Admission Review - Admission Clinical Review (Last Reviewed 05/01/21 @ 20:01 by Clinton Gardner MD) Discharge planning issues (Acute) DVT prophylaxis (Acute) Ambulatory dysfunction (Acute) Pneumonia due to COVID-19 virus (Acute) Hypoxia (Acute) Requires supplemental oxygen (Acute) Rhabdomyolysis (Acute) Generalized weakness (Acute) Penicillins Adverse Reaction (Intermediate, Unverified 05/13/21 12:41) black out gabapentin Adverse Reaction (Mild, Unverified 05/13/21 12:41) Headache niacin Adverse Reaction (Mild, Unverified 05/13/21 12:41) turn red Resuscitation Status Full Code Height 6 ft 4 in Weight 113.5 kg - Renal Dosing Renal Dosing: BUN 22 mg/dL (7-18) H 05/13/21 10:40 Creatinine 1.2 mg/dL (0.70-1.30) 05/13/21 10:40 Medications needing adjustments: Reviewed (SCr: 1.2, CrCl~88.0mL/min (using adjusted body weight). All medications dosed appropriately.) - Anticoagulation Anticoagulation: Hgb 16.8 g/dL (13.5-17.5) 05/13/21 10:40 Hct 50.4 % (40.0-50.0) H 05/13/21 10:40 Plt Count 198 10^3/uL (130-400) 05/13/21 10:40 Creatinine 1.2 mg/dL (0.70-1.30) 05/13/21 10:40 DVT Prophylaxis: N/A Therapeutic Anticoagulation: Reviewed Medications: Apixaban (Apixaban 5mg BID - home med not ordered.) - Opiate Usage Evaluate Pain Scale/Pains Meds: N/A (No opiates administered this admission.) - Relevant Labs Sodium 142 mmol/L (136-145) 05/13/21 10:40 Potassium 3.9 mmol/L (3.5-5.1) 05/13/21 10:40 Chloride 103 mmol/L (98-107) 05/13/21 10:40 Magnesium 2.2 mg/dL (1.8-2.4) 05/13/21 10:40 Electrolytes, C-Reactive P, ESR: Reviewed - DM Control DM Control: Glucose 180 mg/dL (74-106) H 05/13/21 10:40 Insulin Dosing: Reviewed (Glucose slightly elevated, insulin aspart sliding scale ordered.) - Heart Failure/PA Heart Failure/PA: Troponin I < 0.05 ng/mL (<0.06) 05/13/21 10:40 EF%, LESA's, B-Blockers, Diuretics: N/A - BP Control BP Control: Blood Pressure 109/72 Blood Pressure 122/71 Blood Pressure 111/67 Blood Pressure 108/66 Blood Pressure 114/77 Blood Pressure 111/80 Blood Pressure 112/72 Blood Pressure 109/72 Blood Pressure 120/68 Blood Pressure 120/68 If elevated: N/A (Blood pressure within normal limits.) - Qtc Review If Elevated: N/A - IV to PO Switch IV Medications: Reviewed - Home Meds Home Med List reviewed: Reviewed (Atorvastatin 10mg QPM, Clozapine 300mg HS, Divalproex ER 2000mg HS, Apixaban 5mg BID,Lisinopril 5mg daily, Metformin 1000mg BID, Ropinirole 1mg daily at 1600, [place] Thyroid 90mg daily not or dered.) - Current meds Current Medication Order Review: Reviewed - Comments Comments/Follow Ups: Continue to monitor vitals, labs and for medication changes.
--- NOTE | 2021-05-13 16:47 | NUR.NOTE ---
pt transferred to ICU for higher level of care.Nursing Note:
[2021-05-13] MEDS: Insulin Aspart 300 UNITS/3 ML PEN SC ×2 (17:27→21:27)
[2021-05-13] MEDS: Furosemide 40 MG/4 ML VIAL IVP (17:28)
[2021-05-13] MEDS: Fluticasone NASAL SPRAY 16 GM BTL NS (21:24)
[2021-05-13] MEDS: Ascorbic Acid 500 MG TAB 1000 MG PO (21:27)
[2021-05-13] MEDS: rOPINIRole 0.5 MG TAB 1 MG PO (21:28)
[2021-05-13] MEDS: Famotidine 20 MG TAB PO (21:28)
[2021-05-13] MEDS: Melatonin 3 MG TAB PO (21:28)
[2021-05-13] MEDS: Divalproex Sodium 500 MG TAB.ER.24H 2000 MG PO (21:29)
[2021-05-13] MEDS: guaiFENesin 600 MG TABCR PO (21:29)
[2021-05-13] MEDS: Calcium Carbonate *TUMS* 500 MG CHEW PO (21:29)
[2021-05-13] MEDS: Apixaban 5 MG TAB PO (21:30)
[2021-05-14] VITALS (151 sets, daily range): BP systolic 88–116; BP diastolic 59–76; PULSE 56–110; RESP 13–32; TEMP 31–36.7; O2SAT 79–96
[2021-05-14 07:16] LABS: HGB 14.3 g/dL (13.5-17.5); MCHC 33.3 % (32.0-36.0); MCV 90.1 fL (80-95); MPV 11.2 fL (8.0-11.0); Nucleated RBC 0 %; Platelet Count 192 10^3/uL (130-400); RBC 4.77 10^6/uL (4.36-5.78); RDW 13.1 % (11.8-14.1); RDW-SD 43.5 fL; WBC 5.12 10^3/uL (4.4-10.8)
[2021-05-14 07:25] LABS: Prothrombin Time 10.4 sec (9.3-11.0)
[2021-05-14 07:56] LABS: ALT 34 U/L (16-63); AST 59 U/L (15-37); Albumin 2.3 g/dL (3.4-5.0); Alkaline Phosphatase 35 U/L (46-116); Anion Gap 9.7 mmol/L (3-11); BUN 24 mg/dL (7-18); Bilirubin, Direct 0.2 mg/dL (0.0-0.2); Bilirubin, Total 0.4 mg/dL (0.2-1.0); C-Reactive Protein 10.68 mg/dL (0.0-0.3); CO2 26.3 mmol/L (21.0-32.0); CREATININE 0.9 mg/dL (0.70-1.30); Calcium 8.6 mg/dL (8.5-10.1); Chloride 104 mmol/L (98-107); D-Dimer 1021 ng/mlFEU (<500); Glucose 253 mg/dL (74-106); Magnesium 2.2 mg/dL (1.8-2.4); Potassium 4.2 mmol/L (3.5-5.1); Sodium 140 mmol/L (136-145); Total Protein 6.8 g/dL (6.4-8.2)
[2021-05-14 08:06] LABS: Bands % 2
[2021-05-14 08:07] LABS: Absolute Lymphocyte Count 1.43 10^3/uL (1.2-3.4); Absolute Monocyte Count 0.41 10^3/uL (0.1-0.8); Absolute Neutrophil Count 3.17 10^3/uL (1.2-6.7); Atypical Lymphocytes % 1; Metamyelocytes % 1; Myelocytes % 1
[2021-05-14 08:08] LABS: Creatine Kinase 1067 U/L (39-308); Diff Comment Manual Differential; RBC Morphology Normal
[2021-05-14] MEDS: Benzonatate 100 MG CAP PO ×3 (08:10→21:30)
[2021-05-14] MEDS: Ascorbic Acid 500 MG TAB 1000 MG PO ×2 (08:10→21:30)
[2021-05-14] MEDS: Calcium Carbonate *TUMS* 500 MG CHEW PO ×3 (08:10→21:29)
[2021-05-14] MEDS: Apixaban 5 MG TAB PO ×2 (08:11→21:29)
[2021-05-14] MEDS: Zinc Sulfate 220 MG TAB PO (08:11)
[2021-05-14] MEDS: Cholecalciferol (Vitamin D3) 1,000 UNIT TAB 2000 UNITS PO (08:13)
[2021-05-14] MEDS: Dexamethasone 4 MG TAB 6 MG PO (08:13)
[2021-05-14] MEDS: Lisinopril 5 MG TAB PO (08:14)
--- NOTE | 2021-05-14 08:14 | W.PM.PROGNOT ---
Date of Service Date of service: 05/14/21 Time of Service: 15:11 Assessment and Plan Assessment and plan (1) Pneumonia due to COVID-19 virus: Status: Acute Assessment and plan: Clinically better. Keep in ICU. Continue remdesivir, dexamethasone, baricitinib, vitamin C and D supplementation, zinc, antitussives. IS/acapella. Encourage proning. (2) Hypoxia: Status: Acute Assessment and plan: As above (3) Rhabdomyolysis: Status: Acute Assessment and plan: Improved. Off IVF and s/p lasix yesterday. Will try to maintain an overall negative fluid balance. Hold statin. Trend CPK and monitor kidney function. (4) Ambulatory dysfunction: Status: Acute Assessment and plan: Continue PT (5) Blister of left foot: Status: Acute Assessment and plan: Consult podiatry (6) DVT prophylaxis: Status: Acute Assessment and plan: On therapeutic eliquis for Afib (7) Discharge planning issues: Status: Acute Assessment and plan: Full code as per my discussion with the patient. Critical Care Time 35 minutes. Subjective Subjective Interval history since last seen: The patient has been weaned down to FiO2 of 55% 60 L ([facility] Spent the night on CPAP. 40%, 10 of PEEP. Feels better. Breathing is better. Legs feels like weight, but has been able to walk on them today. Denies dizziness, chest pain, shortness of breath at rest, nausea. Cough is better, nonproductive. Good UOP. Purplish heel L - small lesion - not open. Has a heel protector. Exam Narrative Exam Narrative: General: Pleasant middle-aged male without dypsnea/tachypnea/cyanosis on HFNC, sitting up in a chair, looks much better HEENT: EOMI, MMM Cardiovascular: RRR, no m/r/g Lungs: rhonchi resolved; faint crackles at R base. Gastrointestinal: soft, nontender, nondistended Extremities: no edema BLE's, L heel with a pressure blister and calle/purplish discoloration of the skin. Objective Last Vital Signs Temp 36.3 C L 05/14/21 04:37 Pulse 72 05/14/21 04:37 Resp 26 H 05/14/21 05:30 BP 107/66 05/14/21 04:37 Pulse Ox 92 05/14/21 05:30 Laboratory Results - last 24 hr 05/13/21 05/13/21 05/13/21 10:30 10:40 10:40 WBC RBC Hgb Hct MCV MCH MCHC RDW Plt Count MPV Immature Gran % Neutrophils % Band Neutrophils % Lymphocytes % Atypical Lymphs % Monocytes % Eosinophils % Basophils % Metamyelocytes % Myelocytes % Nucleated RBC % Absolute Neutrophils Absolute Lymphocytes Absolute Monocytes Absolute Eosinophils Absolute Basophils RBC Morphology PT INR D-Dimer VBG Lactate 1.7 H Sodium 142 Potassium 3.9 Chloride 103 Carbon Dioxide 28.0 Anion Gap 11.0 BUN 22 H Creatinine 1.2 Estimated GFR/1.73 m2 >= 60.00 Glucose 180 H Calcium 9.4 Magnesium 2.2 Total Bilirubin 0.5 Conjugated Bilirubin AST 99 H ALT 46 Alkaline Phosphatase 46 Creatine Kinase 2512 H Troponin I < 0.05 C-Reactive Protein Total Protein 8.4 H Albumin 3.1 L Procalcitonin 0.1 COVID-19 Source Nasal/Nares SARS-CoV-2 (PCR) POSITIVE A* 05/13/21 05/14/21 05/14/21 10:40 06:10 06:10 WBC 8.28 5.12 D RBC 5.51 4.77 Hgb 16.8 14.3 Hct 50.4 H 43.0 MCV 91.5 90.1 MCH 30.5 30.0 MCHC 33.3 33.3 RDW 13.1 13.1 Plt Count 198 192 MPV 10.8 11.2 H Immature Gran % 1.6 See Differential Neutrophils % 76.9 60.0 Band Neutrophils % 2 Lymphocytes % 14.0 27.0 Atypical Lymphs % 1 Monocytes % 7.1 8.0 Eosinophils % 0.0 0.0 Basophils % 0.4 0.0 Metamyelocytes % 1 Myelocytes % 1 Nucleated RBC % 0 0 Absolute Neutrophils 6.37 3.17 Absolute Lymphocytes 1.16 L 1.43 Absolute Monocytes 0.59 0.41 Absolute Eosinophils 0.00 0.00 Absolute Basophils 0.03 0.00 RBC Morphology Normal PT INR D-Dimer VBG Lactate Sodium 140 Potassium 4.2 Chloride 104 Carbon Dioxide 26.3 Anion Gap 9.7 BUN 24 H Creatinine 0.9 Estimated GFR/1.73 m2 >= 60.00 Glucose 253 H Calcium 8.6 Magnesium 2.2 Total Bilirubin 0.4 Conjugated Bilirubin 0.2 AST 59 H ALT 34 Alkaline Phosphatase 35 L Creatine Kinase 1067 H Troponin I C-Reactive Protein 10.68 H Total Protein 6.8 Albumin 2.3 L Procalcitonin COVID-19 Source SARS-CoV-2 (PCR) 05/14/21 06:10 WBC RBC Hgb Hct MCV MCH MCHC RDW Plt Count MPV Immature Gran % Neutrophils % Band Neutrophils % Lymphocytes % Atypical Lymphs % Monocytes % Eosinophils % Basophils % Metamyelocytes % Myelocytes % Nucleated RBC % Absolute Neutrophils Absolute Lymphocytes Absolute Monocytes Absolute Eosinophils Absolute Basophils RBC Morphology PT 10.4 INR 1.0 D-Dimer 1021 H VBG Lactate Sodium Potassium Chloride Carbon Dioxide Anion Gap BUN Creatinine Estimated GFR/1.73 m2 Glucose Calcium Magnesium Total Bilirubin Conjugated Bilirubin AST ALT Alkaline Phosphatase Creatine Kinase Troponin I C-Reactive Protein Total Protein Albumin Procalcitonin COVID-19 Source SARS-CoV-2 (PCR)
[2021-05-14] MEDS: Normal Saline Flush 10 ML SYR IVP ×2 (08:15→21:26)
[2021-05-14] MEDS: Famotidine 20 MG TAB PO ×2 (08:15→21:31)
[2021-05-14] MEDS: guaiFENesin 600 MG TABCR PO ×2 (08:15→21:29)
[2021-05-14] MEDS: Fluticasone NASAL SPRAY 16 GM BTL NS ×3 (08:16→21:33)
[2021-05-14 08:33] LABS: Ferritin 790 ng/mL (26-388)
[2021-05-14] MEDS: Insulin Aspart 300 UNITS/3 ML PEN SC ×4 (09:00→21:34)
--- NOTE | 2021-05-14 09:23 | INITIAL_ITS ---
- If Service Date Differs Date of service: 05/14/21 Time of Service: 09:23 Care Management Initial Assess REASON FOR HOSPITALIZATION:: Covid-19 pneumonia with hypoxia PAST MEDICAL HISTORY/PAST SURGICAL HISTORY:: Active Problem List (Updated 05/13/21 @ 12:30 by Daksha Lopez MD). Discharge planning issues (Acute). DVT prophylaxis (Acute). Ambulatory dysfunction (Acute). Vitreous floaters of right eye (Acute). Pneumonia due to COVID-19 virus (Acute). Hypoxia (Acute). Requires supplemental oxygen (Acute). Rhabdomyolysis (Acute). Generalized weakness (Acute). Hyperthermia associated with heat (Acute). BRENNEN (acute kidney injury) (Acute). Syncope (Acute). Non-ST elevation SD (NSTEMI) (Acute). Dehydration (Acute). Screening for colorectal cancer (Acute). Medical History (Updated 05/13/21 @ 12:30 by Daksha Lopez MD). Bipolar disorder. Chronic schizophrenia. Diabetes mellitus, type 2. Obesity. Surgical History . Colonoscopy - MAC (01/25/16). 2010. Excision, Lipoma. Hx of cholecystectomy. Hydrocelectomy. Tonsillectomy PREVIOUS FUNCTIONAL STATUS/SOCIAL/FAMILY SUPPORTS:: Judd lives alone in an apartment in [facility]. He is a [employer] client, and his casey saw operator is Nessa Tapia. He has daily medication drops through [employer], but is independent with his ADL's. CURRENT FUNCTIONAL STATUS:: spoke with Judd over the phone due to covid restrictions. He was sitting up in his chair watching TV. He reported that he is feeling much better today and notes that his legs are getting stronger. He has no questions or concerns at this time. ADVANCE DIRECTIVES:: On File, [facility] is Chika Enamorado Has patient been provided with info about the portal/API?: Yes Did the patient sign up for the portal?: No CODE STATUS:: Full Code INSURANCE COVERAGE / FINANCIAL ISSUES:: Medicaid. Medicare CURRENT HOME/COMMUNITY SERVICES/EQUIPMENT:: Judd has support in the community through [facility] [employer], including medication management. He also receives Meals on Wheels. PRIMARY CARE PHYSICIAN:: Nisha Carrillo POTENTIAL DISCHARGE NEEDS:: Follow up appointments. PATIENT/FAMILY EDUCATION NEEDS:: Review discharge instructions, limitations and plan to follow up with community providers. Ask me three. TRANSPORTATION:: Anticipate Jdud will transport via EMS due to covid diagnosis. PLAN:: Anticipate Judd will return home when medically cleared by provider. He will follow up with his PCP and discharge plan of care. It is to soon to determine if Judd will require new [facility] services and/or new home O2. He is a [employer] client and his casey saw operator Nessa Tapia and she will need to be contacted prior to discharge. Judd will likely transport home via EMS due to his covid diagnosis. CM will continue to follow.
--- NOTE | 2021-05-14 09:40 | PUCC_ITS ---
General Date of Service Date of service: 05/14/21 Time of Service: 07:30 Reason for Admission to ICU: COVID-19 Assessment and Plan Assessment and plan (1) Respiratory failure with hypoxia: Status: Acute (2) Pneumonia due to COVID-19 virus: Status: Acute (3) Elevated CK: Status: Acute (4) Hyperglycemia: Status: Acute Assessment and plan: This is a 60 yo man with diabetes who was found down and found to be in hypoxic respiratory failure due to COVID-19. He is receiving barcitinib, remdesivir and decadron in addition to HFNC and CPAP at night. He is using the Acapella and incentive spirometer. He is vaccinated, so hopefully he will recover promptly. Recommendations Pulmonary: Hypoxic Respiratory Failure - sat goal >90% - prn albuterol HFA - HFNC during the day - as much CPAP at night as he can tolerate - proning/side sleeping as much as possible - Acapella and incentive spirometry - ambulation as tolerated - out of bed to chair Cardiac: No acute concerns - recommend EKG if he has not have one yet Renal: Elevated CK - no rhabdo given lack of renal impairment - would not recommend any further fluids - agree with gentle diuresis I&O: Intake & Output 05/11/21 05/12/21 05/13/21 05/14/21 23:59 23:59 23:59 23:59 Intake Total 3137 / 3137 285 / 285 Output Total 925 / 925 400 / 400 Balance 2212 / 2212 -115 / -115 Weight 113.2 kg 113 kg Daily Fluid Goal:: Daily negative fluid balance GI Nutrition: PO diet Date of Last Bowel Movement: 05/13/21 Infectious Disease: COVID-19 - decadron, barcitinib, remdesivir - low likelihood for concomitant bacterial pneumonia Hematologic: No acute concerns Neurologic: Schizophrenia and Bipolar - continue home medication regimen Endocrine: Diabetes - on SSI - glucose goal 140-180 - on steroids Lines: PIV Prophylaxis: on Apixaban, can considerGI ppx given steroids Code Status: Resuscitation Status Full Code Subjective Critical and life-threatening events over the past 24 hours: This is a 60 yo man who has mental health issues including schizophrenia and bipolar as well as obesity and diabetes who was found down and found to be hypoxic. He later tested positive for COVID and was admitted to the ICU for hypoxic respiratory failure. His inflammatory markers are elevated and so was started on Decadron, remdesivir and barcitinib. He was also found to have an elevated CK without any renal impairment. Judd is comfortable and states he feel as though his breathing is much easier as compared to yesterday. He did wear CPAP for a few hours last night. He tells me he cannot prone. He was already out of bed to a chair at the time of my assessment. He is a mouth breather but his sats are tolerating a HFNC at this time. Exam Const General: no acute distress Nutritional Appearance: well nourished [facility] Head: normocephalic Ears: external ears normal and no periauricular adenopathy General nose exam: nasal mucous membranes and turbinates normal Face and sinus: sinuses nontender Mouth: oropharynx normal and moist mucous membranes Teeth and gingiva: dentition normal Eyes General: appearance normal, both eyes and all related structures Pupils: PERRL Neck Neck: normal visual inspection and no lymphadenopathy Chest Chest: normal inspection of the chest Resp Effort & Inspection: normal respiratory effort Auscultation: clear to auscultation bilaterally, rales bilaterally (R>L), no rhonchi and no wheezes Cardio Rate: regular rate Rhythm: regular rhythm Heart Sounds: S1 normal, S2 normal and no murmurs Pulses: radial pulses present bilaterally GI Inspection: normal to inspection Palpation: soft Skin General skin exam: no rashes or lesions noted Neuro General: patient alert, patient awake and patient oriented x3 Extrem General: no clubbing, cyanosis or edema Psych Mental Status: mental status grossly normal Affect: normal affect Attitude: cooperative Most Recent VS/Results Last Vital Signs Temp 36.5 C 05/14/21 08:02 Pulse 79 05/14/21 07:23 Resp 26 H 05/14/21 08:50 BP 116/76 05/14/21 07:23 Pulse Ox 92 05/14/21 08:50 Laboratory Results - last 24 hr 05/13/21 05/13/21 05/13/21 10:30 10:40 10:40 WBC RBC Hgb Hct MCV MCH MCHC RDW Plt Count MPV Immature Gran % Neutrophils % Band Neutrophils % Lymphocytes % Atypical Lymphs % Monocytes % Eosinophils % Basophils % Metamyelocytes % Myelocytes % Nucleated RBC % Absolute Neutrophils Absolute Lymphocytes Absolute Monocytes Absolute Eosinophils Absolute Basophils RBC Morphology PT INR D-Dimer VBG Lactate 1.7 H Sodium 142 Potassium 3.9 Chloride 103 Carbon Dioxide 28.0 Anion Gap 11.0 BUN 22 H Creatinine 1.2 Estimated GFR/1.73 m2 >= 60.00 Glucose 180 H Calcium 9.4 Magnesium 2.2 Ferritin Total Bilirubin 0.5 Conjugated Bilirubin AST 99 H ALT 46 Alkaline Phosphatase 46 Creatine Kinase 2512 H Troponin I < 0.05 C-Reactive Protein Total Protein 8.4 H Albumin 3.1 L Procalcitonin 0.1 COVID-19 Source Nasal/Nares SARS-CoV-2 (PCR) POSITIVE A* 05/13/21 05/14/21 05/14/21 10:40 06:10 06:10 WBC 8.28 5.12 D RBC 5.51 4.77 Hgb 16.8 14.3 Hct 50.4 H 43.0 MCV 91.5 90.1 MCH 30.5 30.0 MCHC 33.3 33.3 RDW 13.1 13.1 Plt Count 198 192 MPV 10.8 11.2 H Immature Gran % 1.6 See Differential Neutrophils % 76.9 60.0 Band Neutrophils % 2 Lymphocytes % 14.0 27.0 Atypical Lymphs % 1 Monocytes % 7.1 8.0 Eosinophils % 0.0 0.0 Basophils % 0.4 0.0 Metamyelocytes % 1 Myelocytes % 1 Nucleated RBC % 0 0 Absolute Neutrophils 6.37 3.17 Absolute Lymphocytes 1.16 L 1.43 Absolute Monocytes 0.59 0.41 Absolute Eosinophils 0.00 0.00 Absolute Basophils 0.03 0.00 RBC Morphology Normal PT INR D-Dimer VBG Lactate Sodium 140 Potassium 4.2 Chloride 104 Carbon Dioxide 26.3 Anion Gap 9.7 BUN 24 H Creatinine 0.9 Estimated GFR/1.73 m2 >= 60.00 Glucose 253 H Calcium 8.6 Magnesium 2.2 Ferritin 790 H Total Bilirubin 0.4 Conjugated Bilirubin 0.2 AST 59 H ALT 34 Alkaline Phosphatase 35 L Creatine Kinase 1067 H Troponin I C-Reactive Protein 10.68 H Total Protein 6.8 Albumin 2.3 L Procalcitonin COVID-19 Source SARS-CoV-2 (PCR) 05/14/21 06:10 WBC RBC Hgb Hct MCV MCH MCHC RDW Plt Count MPV Immature Gran % Neutrophils % Band Neutrophils % Lymphocytes % Atypical Lymphs % Monocytes % Eosinophils % Basophils % Metamyelocytes % Myelocytes % Nucleated RBC % Absolute Neutrophils Absolute Lymphocytes Absolute Monocytes Absolute Eosinophils Absolute Basophils RBC Morphology PT 10.4 INR 1.0 D-Dimer 1021 H VBG Lactate Sodium Potassium Chloride Carbon Dioxide Anion Gap BUN Creatinine Estimated GFR/1.73 m2 Glucose Calcium Magnesium Ferritin Total Bilirubin Conjugated Bilirubin AST ALT Alkaline Phosphatase Creatine Kinase Troponin I C-Reactive Protein Total Protein Albumin Procalcitonin COVID-19 Source SARS-CoV-2 (PCR) Review of Systems All systems reviewed & are unremarkable except as noted in HPI and below Time spent with patient Time spent in Critical Care: 45 Time spent in Critical care included: Coordination of care, Chart review, Documenting critically ill care, Time at immediate bedside and Discussing critically ill care with other medical staff
--- NOTE | 2021-05-14 10:01 | W.INDIABCONS ---
Date of service: 05/14/21 Time of Service: 10:01 Diabetes Inpatient Consult DESCRIPTION/ASSESSMENT: Mr. Hathaway is admitted with Covid pneumonia. He has excellent PO intake on consistent CHO diet. His BMI is 30 c/w class 1 obesity. Of note Mr. Hathaway has had a significant weight loss of 9.6% since he was here a month ago. His blood sugars are above target. He is on Aspart AC and HS. INTERVENTION: Currently he has excellent PO intake so his significant weight loss does not correlate to malnutrition, however we will watch him closely for s/sx of malnutrition. With regard to his blood sugars, would consider starting a basal insulin which may help bring his blood sugars closer to target. PLAN: Will continue to follow his nutritional status and his blood sugars. Will evaluate his nutrition care plan ongoing and adjust as needed. Time Spent in Nutritional Counseling and Treatment: 0
--- NOTE | 2021-05-14 11:31 | PT.INIE ---
Date of service: 05/14/21 Time of Service: 11:31 PT Notes Visit Reasons: COVID-19 Pneumonia with Hypoxia Physical Therapy Inpatient Initial Evaluation Date: 05/14/2021 Referring Doctor: Daksha Lopez MD PT Orders: PT CONSULT: Limited ability Precautions: Fall. Standard. Activity as tolerated. COVID-19 precautions. Patient Profile/Admitting Diagnosis: Judd is a 60-year-old male who was brought to the ED on 05/13/2021 via EMS after being found on the floor of his home by [facility] [facility] staff. Presented to the ED with generalized weakness and inability to transfer/walk. He is diagnosed with COVID-19 pneumonia, hypoxia, rhabdomyolysis, ambulatory dysfunction. PMHX: Active Problem List (Updated 05/13/21 @ 12:30 by Daksha Lopez MD) Discharge planning issues (Acute) DVT prophylaxis (Acute) Ambulatory dysfunction (Acute) Vitreous floaters of right eye (Acute) Pneumonia due to COVID-19 virus (Acute) Hypoxia (Acute) Requires supplemental oxygen (Acute) Rhabdomyolysis (Acute) Generalized weakness (Acute) Hyperthermia associated with heat (Acute) BRENNEN (acute kidney injury) (Acute) Syncope (Acute) Non-ST elevation CO (NSTEMI) (Acute) Dehydration (Acute) Screening for colorectal cancer (Acute) Medical History (Updated 05/13/21 @ 12:30 by Daksha Lopez MD) Bipolar disorder Chronic schizophrenia Diabetes mellitus, type 2 Obesity Surgical History Colonoscopy - MAC (01/25/16) 2010 Excision, Lipoma Hx of cholecystectomy Hydrocelectomy Tonsillectomy Social History/Home Situation: Lives alone in the basement of an apartment building with 2 stone steps to enter. Ambulatory in the community using a single-point cane. Equipment Owned/DME: Single-point cane Subjective: Agreeable to PT consult and to getting off of chair to try to short distance in room walking. Reports fatigue after PT session. Denies headache, chest pain, and lightheadedness throughout session. Objective: General Observation: Telemetry monitoring in place. On high flow oxygen supplementation. IV access in the right UE. Mental Status: Alert and oriented as to person and place. Able to follow single step commands. Pain: Denies Vital Signs: Desaturated to 86% on high flow oxygen supplementation right after short distance in room ambulation. Returned back up to 91% after 2 to 3 minutes of seated rest. ROM: Right Upper Extremity: Shoulder Flexion WFL. Shoulder abduction WFL. Shoulder ER/IR WFL. Elbow flexion WFL. Forearm pronation/supination WFL. Wrist flexion WFL. Opening and closing of hand WFL. Left Upper Extremity: Shoulder Flexion WFL. Shoulder abduction WFL. Shoulder ER/IR WFL. Elbow flexion WFL. Forearm pronation/supination WFL. Wrist flexion WFL. Opening and closing of hand WFL. Right Lower Extremity: Hip flexion unable to further flex at the hip beyond 90 while seated on chair. Hip abduction WFL. Hip ER/IR WFL. Knee flexion WFL. Knee extension -10 degrees. Ankle dorsiflexion/eversion to neutral only. Ankle plantarflexion/inversion WFL. Left Lower Extremity: Hip flexion unable to further flex at the hip beyond 90 while seated on chair. Hip abduction WFL. Hip ER/IR WFL. Knee flexion WFL. Knee extension -10 degrees. Ankle dorsiflexion to neutral only. Ankle plantarflexion WFL. Strength: Right Upper Extremity: Shoulder flexors 4-/5. Shoulder abductors 4-/5. Shoulder ER 4-/5. Shoulder IR 4-/5. Forearm pronators 4-/5. Forearm supinators 4-/5. Elbow flexors 4-/5. Elbow extensors 4-/5. Field Account Manager weak but functional. Left Upper Extremity: Shoulder flexors 4-/5. Shoulder abductors 4-/5. Shoulder ER 4-/5. Shoulder IR 4-/5. Forearm pronators 4-/5. Forearm supinators 4-/5. Elbow flexors 4-/5. Elbow extensors 4-/5. Field Account Manager weak but functional. Right Lower Extremity: Hip flexors 3-/5. Hip abductors 3+/5. Hip external rotators 3+/5. Hip internal rotators 3+/5. Knee flexors 3-/5. Knee extensors 3-/5. Ankle dorsiflexors/evertors 3-/5. Ankle plantarflexors/invertors 3-/5. Left Lower Extremity: Hip flexors 3-/5. Hip abductors 3+/5. Hip external rotators 3+/5. Hip internal rotators 3+/5. Knee flexors 3-/5. Knee extensors 3-/5. Ankle dorsiflexors/evertors 3-/5. Ankle plantarflexors/invertors 3-/5. Bed Mobility/Transfers: Sit to stand contact-guard assist Stand to sit contact-guard assist Bed to chair contact-guard assist Gait: Short distance in the room ambulation of distance of 5 steps forward and 5 steps of backing up onto chair requiring contact-guard assist of PT and standby assist of nurse Sosa using front-wheeled walker. Nella decreased. No LOB. Mild path deviation seen. Moderate SOB seen that resolved with rest. Desaturated to 86% on high flow oxygen supplementation but desaturated back to 92% with seated rest after 3 minutes. Balance: Static Sitting: Normal Dynamic Sitting: Good Static Standing: Fair Dynamic Standing: Fair Special Tests: Mobility Limitations Standardized Measure [facility] AM-PAC 6 clicks Basic Mobility Inpatient Short Form: Raw Score: 18 CMS Score: 47 % deficit Informed Consent/Education: Patient was instructed in purpose of PT consult and plan of care. Agreeable to proceed with established PT POC to achieve personal goals. Assessment: Clinton demonstrates significant functional mobility decline requiring the use of front wheeled walker and assistance of 1 person for all mobility ADL performance. Patient will benefit from PT services in order to address mobility limitations and impairments listed below. Patient presents with clinical signs and symptoms consistent with current/admitting diagnoses that have resulted to mobility limitations, gait instability, generalized weakness, and overall ADL decline as demonstrated by the following impairment level findings: 1. Decreased strength to BUE/LE major muscle groups 2. Impaired sitting/standing balance 3. Impaired activity tolerance 4. Limitation of joint range of motion in B hips and knees 5. Shortness of breath Impairments are contributing to the following functional limitations: 1. Decline in bed mobility skills 2. Decline in transfer skills 3. Difficulty with ambulation without assistive device and physical assistance 4. Increased completion time for mobility ADL performance 5. Increased risk for falls 6. Difficulty with managing steps alone safely Patient is assessed as a [id number] moderate complexity based on the following: History: 60-year-old male with past medical history as indicated above Examination: Demonstrable impairment in strength, balance, and mobility level with underlying impairments and functional limitations as exhibited above as well as deficit score of 47 % utilizing the [facility] Mobility Inpatient Short Form Presentation: Evolving Decision Makin moderate complexity Goals: Goals X1 week 1. Supine-Sit independent 2. Sit-Supine independent 3. Sit-Stand independent 4. Stand-Sit independent with SPC 5. Bed-Chair independent with SPC 6. Chair-Bed independent with SPC 7. Standby assist gait on level surface with use of SPC for at least 50 feet without report of pain nor dyspnea 8. Standby assist stair negotiation while holding onto 1 rails for at least 3 steps without report of pain nor dyspnea 9. Good static and dynamic standing balance/tolerance Plan of Care/Treatment Plan: 1-2x/day, 7 days/week x 1 week. Plan of care has been reviewed with the CELERY WRAPPER providing the service under Physical Therapy direction. Initiate Physical Therapy intervention for pain management as needed, strengthening, bed mobility, transfers, gait, stairs, balance training, and use of assistive device. DISCHARGE RECOMMENDATIONS: [] Home with no services [] [X] Home with services when medically cleared by hospitalist. Patient will benefit from home health PT services in order to progress mobility level using least restrictive assistive ambulatory device, assess home safety, identify additional equipment needs, and establish a functional maintenance program that will increase ability of patient to remain at home. [] Home with outpatient PT [] [] SNF for continued rehabilitation [] [] [facility] [] [] SNF versus LTC based on ability to participate and progress [] TREATMENT CODE/TIME: 17240 x 20 minutes, 37412 x 14 minutes beginning at 11:31 AM. Thank you for the opportunity to participate in the care of this patient. Karli Burrows PT, DPT, CLT [facility] [place], [place]
[2021-05-14] MEDS: Nystatin POWDER 60 GM JAR TP ×3 (11:38→21:33)
[2021-05-14] MEDS: rOPINIRole 0.5 MG TAB 1 MG PO (17:02)
[2021-05-14] MEDS: Divalproex Sodium 500 MG TAB.ER.24H 2000 MG PO (21:27)
[2021-05-14] MEDS: Melatonin 3 MG TAB PO (21:29)
[2021-05-14] MEDS: Docusate Sodium 100 MG CAP 200 MG PO (21:30)
[2021-05-14] MEDS: Acetaminophen 325 MG TAB PO (21:31)
[2021-05-14] MEDS: Senna TAB 1 TAB PO (21:32)
[2021-05-15] VITALS (158 sets, daily range): BP systolic 91–132; BP diastolic 47–79; PULSE 0–111; RESP 13–44; TEMP 31–37.3; O2SAT 73–100
[2021-05-15 06:57] LABS: HCT 45.4 % (40.0-50.0); MCH 30.1 pg (27.0-33.0); MPV 11.4 fL (8.0-11.0); Platelet Count 266 10^3/uL (130-400); RBC 4.99 10^6/uL (4.36-5.78); RDW 13.2 % (11.8-14.1); RDW-SD 44.1 fL; WBC 7.97 10^3/uL (4.4-10.8)
[2021-05-15] MEDS: Insulin Aspart 300 UNITS/3 ML PEN SC ×4 (07:15→22:53)
[2021-05-15 07:25] LABS: ALT 35 U/L (16-63); AST 42 U/L (15-37); Albumin 2.5 g/dL (3.4-5.0); Alkaline Phosphatase 40 U/L (46-116); Anion Gap 6.1 mmol/L (3-11); BUN 33 mg/dL (7-18); Bilirubin, Direct 0.2 mg/dL (0.0-0.2); Bilirubin, Total 0.4 mg/dL (0.2-1.0); C-Reactive Protein 5.28 mg/dL (0.0-0.3); CO2 29.9 mmol/L (21.0-32.0); Calcium 9.1 mg/dL (8.5-10.1); Chloride 102 mmol/L (98-107); Creatine Kinase 593 U/L (39-308); Glucose 272 mg/dL (74-106); Magnesium 2.4 mg/dL (1.8-2.4); Potassium 4.3 mmol/L (3.5-5.1); Sodium 138 mmol/L (136-145); Total Protein 7.1 g/dL (6.4-8.2)
[2021-05-15 07:35] LABS: Absolute Lymphocyte Count 1.35 10^3/uL (1.2-3.4); Absolute Monocyte Count 0.56 10^3/uL (0.1-0.8); Absolute Neutrophil Count 6.06 10^3/uL (1.2-6.7); Diff Comment Manual Differential; Nucleated RBC 1 %; RBC Morphology Normal
[2021-05-15 07:52] LABS: Ferritin 925 ng/mL (26-388)
[2021-05-15 07:56] LABS: D-Dimer 827 ng/mlFEU (<500)
[2021-05-15 08:00] LABS: INR 1.1 (0.9-1.1); Prothrombin Time 10.6 sec (9.3-11.0)
--- NOTE | 2021-05-15 08:19 | W.PM.PROGNOT ---
Date of Service Date of service: 05/15/21 Time of Service: 15:33 Assessment and Plan Assessment and plan (1) Pneumonia due to COVID-19 virus: Status: Acute Assessment and plan: Clinically better. Keep in ICU. Continue remdesivir, dexamethasone, baricitinib, vitamin C and D supplementation, zinc, antitussives. Will add cough syrup as requested. IS/acapella. Encourage proning. (2) Hypoxia: Status: Acute Assessment and plan: As above (3) Rhabdomyolysis: Status: Acute Assessment and plan: Improved. Off IVF and s/p lasix. Will recheck in am.. Hold statin. Monitor kidney function. (4) Ambulatory dysfunction: Status: Acute Assessment and plan: Continue PT (5) Blister of left foot: Status: Acute Assessment and plan: Discussed case with podiatry: recommend mepilex and heel protector. (6) DVT prophylaxis: Status: Acute Assessment and plan: On therapeutic eliquis for Afib (7) Discharge planning issues: Status: Acute Assessment and plan: Full code as per my discussion with the patient. Critical Care Time 35 minutes. Subjective Subjective Patient reports: no new complaints Interval history since last seen: Mr Hathaway states taht he feels a lot better. He states he is no longer short of breath and does not feel like he is choking. He was on FiO2 of 45% 45L. Requests cough syrup and some watercolor paints to paint portraits. Denies dizziness, chest pain, shortness of breath, nausea. Exam Narrative Exam Narrative: General: Pleasant middle-aged male without dypsnea/tachypnea/cyanosis on HHHFNC, coughing while in bed HEENT: EOMI, MMM Cardiovascular: RRR, no m/r/g Lungs: Diminished breath sounds B Gastrointestinal: soft, nontender, nondistended Extremities: no edema BLE's, L heel with a pressure blister and calle/purplish discoloration of the skin. Objective Last Vital Signs Temp 36 C L 05/15/21 04:05 Pulse 62 05/15/21 06:00 Resp 20 05/15/21 06:30 BP 102/61 05/15/21 06:00 Pulse Ox 82 L 05/15/21 06:30 Laboratory Results - last 24 hr 05/14/21 05/15/21 05/15/21 06:10 06:20 06:20 WBC 7.97 D RBC 4.99 Hgb 15.0 Hct 45.4 MCV 91.0 MCH 30.1 MCHC 33.0 RDW 13.2 Plt Count 266 MPV 11.4 H Immature Gran % 0.0 Neutrophils % 76.0 Lymphocytes % 17.0 Monocytes % 7.0 Eosinophils % 0.0 Basophils % 0.0 Nucleated RBC % 1 Absolute Neutrophils 6.06 Absolute Lymphocytes 1.35 Absolute Monocytes 0.56 Absolute Eosinophils 0.00 Absolute Basophils 0.00 RBC Morphology Normal PT INR D-Dimer Sodium 138 Potassium 4.3 Chloride 102 Carbon Dioxide 29.9 Anion Gap 6.1 BUN 33 H D Creatinine 1.0 Estimated GFR/1.73 m2 >= 60.00 Glucose 272 H Calcium 9.1 Magnesium 2.4 Ferritin 790 H 925 H Total Bilirubin 0.4 Conjugated Bilirubin 0.2 AST 42 H ALT 35 Alkaline Phosphatase 40 L Creatine Kinase 593 H C-Reactive Protein 5.28 H Total Protein 7.1 Albumin 2.5 L 05/15/21 06:20 WBC RBC Hgb Hct MCV MCH MCHC RDW Plt Count MPV Immature Gran % Neutrophils % Lymphocytes % Monocytes % Eosinophils % Basophils % Nucleated RBC % Absolute Neutrophils Absolute Lymphocytes Absolute Monocytes Absolute Eosinophils Absolute Basophils RBC Morphology PT 10.6 INR 1.1 D-Dimer 827 H Sodium Potassium Chloride Carbon Dioxide Anion Gap BUN Creatinine Estimated GFR/1.73 m2 Glucose Calcium Magnesium Ferritin Total Bilirubin Conjugated Bilirubin AST ALT Alkaline Phosphatase Creatine Kinase C-Reactive Protein Total Protein Albumin
[2021-05-15] MEDS: Benzonatate 100 MG CAP PO ×3 (09:18→20:57)
[2021-05-15] MEDS: Calcium Carbonate *TUMS* 500 MG CHEW PO ×3 (09:18→20:56)
[2021-05-15] MEDS: Dexamethasone 4 MG TAB 6 MG PO (09:19)
[2021-05-15] MEDS: Cholecalciferol (Vitamin D3) 1,000 UNIT TAB 2000 UNITS PO (09:19)
[2021-05-15] MEDS: Famotidine 20 MG TAB PO ×2 (09:20→20:57)
[2021-05-15] MEDS: Lisinopril 5 MG TAB PO (09:20)
[2021-05-15] MEDS: Nystatin POWDER 60 GM JAR TP ×3 (09:20→22:52)
[2021-05-15] MEDS: guaiFENesin 600 MG TABCR PO ×2 (09:20→20:56)
[2021-05-15] MEDS: Zinc Sulfate 220 MG TAB PO (09:21)
[2021-05-15] MEDS: Fluticasone NASAL SPRAY 16 GM BTL NS ×2 (09:21→22:51)
[2021-05-15] MEDS: Apixaban 5 MG TAB PO ×2 (09:21→20:56)
--- NOTE | 2021-05-15 09:21 | PUCC_ITS ---
General Date of Service Date of service: 05/15/21 Time of Service: 08:00 Reason for Admission to ICU: COVID-19 Assessment and Plan Assessment and plan (1) Respiratory failure with hypoxia: Status: Acute (2) Pneumonia due to COVID-19 virus: Status: Acute (3) Elevated CK: Status: Acute (4) Hyperglycemia: Status: Acute Assessment and plan: This is a 60 yo man with diabetes who was found down and found to be in hypoxic respiratory failure due to COVID-19. He is receiving barcitinib, remdesivir and decadron in addition to HFNC and CPAP at night. He is using the Acapella and incentive spirometer. He is vaccinated, so hopefully he will recover promptly. He is slowly making improvements. Recommendations Pulmonary: Hypoxic Respiratory Failure - sat goal >90% - prn albuterol HFA - HFNC during the day - can attempt a trial on nasal cannula as his O2 requirements have decreased - as much CPAP at night as he can tolerate - recommend a prn benzo to facilitate this - proning/side sleeping as much as possible - Acapella and incentive spirometry - ambulation as tolerated - out of bed to chair Cardiac: No acute concerns Renal: Elevated CK - no rhabdo given lack of renal impairment - would not recommend any further fluids - agree with gentle diuresis - negative daily fluid balance I&O: Intake & Output 05/12/21 05/13/21 05/14/21 05/15/21 23:59 23:59 23:59 23:59 Intake Total 3137 / 3137 2722 / 2722 Output Total 925 / 925 1979 / 1979 Balance 2212 / 2212 742 / 742 Weight 113.2 kg 113 kg Daily Fluid Goal:: Negative 1L GI Nutrition: PO diet Date of Last Bowel Movement: 05/13/21 Infectious Disease: COVID-19 - decadron, barcitinib, remdesivir - low likelihood for concomitant bacterial pneumonia - no need to continue daily monitoring of inflammatory markers - this can be changed to twice a week and prn given the decline in markers Hematologic: No acute concerns Neurologic: Schizophrenia and Bipolar - continue home medication regimen Endocrine: Diabetes - on SSI - this may need increasing as he is hyperglycemic - glucose goal 140-180 - on steroids Lines: PIV Prophylaxis: on Apixaban and famotidine Code Status: Resuscitation Status Full Code Subjective Critical and life-threatening events over the past 24 hours: Judd is doing well today. He was able to tolerate the CPAP for a couple hours last night but needed alot of nursing intervention to keep it on. He continues to have a dry cough with no hemoptysis. He also continues to ambulate within his room. His inflammatory markers are decreasing. Exam Const General: no acute distress Nutritional Appearance: well nourished [facility] [place] Head: normocephalic Ears: external ears normal and no periauricular adenopathy General nose exam: nasal mucous membranes and turbinates normal Face and sinus: sinuses nontender Mouth: oropharynx normal and moist mucous membranes Teeth and gingiva: dentition normal Eyes General: appearance normal, both eyes and all related structures Pupils: PERRL Neck Neck: normal visual inspection and no lymphadenopathy Chest Chest: normal inspection of the chest Resp Effort & Inspection: normal respiratory effort Auscultation: clear to auscultation bilaterally, rales bilaterally at the base, no rhonchi and no wheezes Cardio Rate: regular rate Rhythm: regular rhythm Heart Sounds: S1 normal, S2 normal and no murmurs Pulses: radial pulses present bilaterally GI Inspection: normal to inspection Palpation: soft Skin General skin exam: no rashes or lesions noted Neuro General: patient alert, patient awake and patient oriented x3 Extrem General: no clubbing, cyanosis or edema Psych Mental Status: mental status grossly normal Affect: normal affect Attitude: cooperative Most Recent VS/Results Last Vital Signs Temp 36 C L 05/15/21 04:05 Pulse 62 05/15/21 06:00 Resp 20 05/15/21 06:30 BP 102/61 05/15/21 06:00 Pulse Ox 82 L 05/15/21 06:30 Laboratory Results - last 24 hr 05/15/21 05/15/21 05/15/21 06:20 06:20 06:20 WBC 7.97 D RBC 4.99 Hgb 15.0 Hct 45.4 MCV 91.0 MCH 30.1 MCHC 33.0 RDW 13.2 Plt Count 266 MPV 11.4 H Immature Gran % 0.0 Neutrophils % 76.0 Lymphocytes % 17.0 Monocytes % 7.0 Eosinophils % 0.0 Basophils % 0.0 Nucleated RBC % 1 Absolute Neutrophils 6.06 Absolute Lymphocytes 1.35 Absolute Monocytes 0.56 Absolute Eosinophils 0.00 Absolute Basophils 0.00 RBC Morphology Normal PT 10.6 INR 1.1 D-Dimer 827 H Sodium 138 Potassium 4.3 Chloride 102 Carbon Dioxide 29.9 Anion Gap 6.1 BUN 33 H D Creatinine 1.0 Estimated GFR/1.73 m2 >= 60.00 Glucose 272 H Calcium 9.1 Magnesium 2.4 Ferritin 925 H Total Bilirubin 0.4 Conjugated Bilirubin 0.2 AST 42 H ALT 35 Alkaline Phosphatase 40 L Creatine Kinase 593 H C-Reactive Protein 5.28 H Total Protein 7.1 Albumin 2.5 L Review of Systems All systems reviewed & are unremarkable except as noted in HPI and below Time spent with patient Time spent in Critical Care: 35 Time spent in Critical care included: Coordination of care, Chart review, Documenting critically ill care, Time at immediate bedside and Discussing critically ill care with other medical staff
--- NOTE | 2021-05-15 10:03 | CMPROGNOTE_ITS ---
- If Service Date Differs Date of service: 05/15/21 Time of Service: 10:03 Care Management Progress Note S/O: Judd continues to require close monitoring and treatment for Covid in the ICU. CM was unable to connect with patient over the phone today. CM spoke with nursing and he was in bed sleeping. No concerns were noted, however nursing did mention that he has trouble following directions but at least he is keeping his oxygen on. A: 60 year old male admitted to [facility] on 05/13/21 for Covid Pneumonia with hypoxia. P: Anticipate Judd will return home when medically cleared by provider. He will follow up with his PCP and discharge plan of care. It is to soon to determine if Judd will require new CHH services and/or new home O2. 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 CM will contact her prior to discharge. Judd will likely transport home via EMS due to his covid diagnosis. CM will continue to follow.
[2021-05-15] MEDS: Ascorbic Acid 500 MG TAB 1000 MG PO ×2 (10:48→20:56)
[2021-05-15] MEDS: rOPINIRole 0.5 MG TAB 1 MG PO (15:50)
[2021-05-15] MEDS: guaiFENesin 200 MG/10 ML CUP PO (15:50)
--- NOTE | 2021-05-15 16:51 | PT.INTREAT ---
Date of service: 05/15/21 Time of Service: 13:24 PT Notes Visit Reasons: COVID-19 Pneumonia with Hypoxia Inpatient Physical Therapy Treatment Note [facility] Date: 05/15/2021 PRECAUTIONS: Fall, COVID-19 SUBJECTIVE: Judd is pleasant, although states that he does not like physical therapy, but is agreeable to participating in PT for a short time. He states that he has been getting out of bed independently. OBJECTIVE: PAIN: No c/o pain BED MOBILITY/TRANSFERS Supine-sit: I Sit-supine: I Sit-stand: S Stand-sit: S Bed-Chair: SBA Chair-bed: SBA GAIT Assistive Device: FWW No AD Weight bearing: Full Assist: SBA Distance: 5 steps x2 with FWW 8' x3 without AD Deviation: Increased fatigue THEREX: Patient declined to participate in ther ex ASSESSMENT: Patient tolerated session without complaint. He was limited to short distances within his room due to Covid precautions and attachment to HiFlow nasal canula. PLAN: Continue with gait and transfer training, as tolerated for continued general conditioning and prevention of further deconditioning due to illness. TREATMENT CODE/TIME: 24 minutes; 12869 x2 (13:24)
[2021-05-15] MEDS: Melatonin 3 MG TAB PO (20:55)
[2021-05-15] MEDS: Docusate Sodium 100 MG CAP 200 MG PO (20:56)
[2021-05-15] MEDS: LORazepam 0.5 MG TAB PO (20:57)
[2021-05-15] MEDS: Senna TAB 1 TAB PO (20:57)
[2021-05-15] MEDS: Divalproex Sodium 500 MG TAB.ER.24H 2000 MG PO (22:58)
[2021-05-16] VITALS (137 sets, daily range): BP systolic 84–127; BP diastolic 39–77; PULSE 38–104; RESP 11–29; TEMP 31–36.8; O2SAT 81–100
[2021-05-16 01:45] LABS: Vitamin D 25 Total 16.5 ng/mL (30-100)
[2021-05-16 07:27] LABS: HCT 43.7 % (40.0-50.0); HGB 14.3 g/dL (13.5-17.5); MCH 29.8 pg (27.0-33.0); MCHC 32.7 % (32.0-36.0); MPV 11.2 fL (8.0-11.0); Nucleated RBC 0 %; Platelet Count 286 10^3/uL (130-400); RDW-SD 43.8 fL; WBC 8.15 10^3/uL (4.4-10.8)
[2021-05-16 07:48] LABS: INR 1.1 (0.9-1.1); Prothrombin Time 10.7 sec (9.3-11.0)
[2021-05-16 07:59] LABS: ALT 32 U/L (16-63); AST 31 U/L (15-37); Albumin 2.4 g/dL (3.4-5.0); Alkaline Phosphatase 40 U/L (46-116); Anion Gap 6.7 mmol/L (3-11); BUN 24 mg/dL (7-18); Bilirubin, Direct 0.2 mg/dL (0.0-0.2); Bilirubin, Total 0.4 mg/dL (0.2-1.0); CO2 30.3 mmol/L (21.0-32.0); CREATININE 0.9 mg/dL (0.70-1.30); Calcium 9.1 mg/dL (8.5-10.1); Chloride 105 mmol/L (98-107); Ferritin 549 ng/mL (26-388); Glucose 230 mg/dL (74-106); Magnesium 2.2 mg/dL (1.8-2.4); PHOSPHORUS 3.2 mg/dL (2.6-4.7); Potassium 4.1 mmol/L (3.5-5.1); Sodium 142 mmol/L (136-145); Total Protein 6.5 g/dL (6.4-8.2)
[2021-05-16 08:22] LABS: D-Dimer 690 ng/mlFEU (<500)
[2021-05-16 08:24] LABS: Procalcitonin < 0.1 ng/mL
--- NOTE | 2021-05-16 08:30 | NUR.NOTE ---
Patient refused care. states that he got washed up yesterday and does not want to get washed every day. RN notified. Will offer assistance at a later time. Patient is now sitting in chair eating breakfast. Nursing Note:
--- NOTE | 2021-05-16 08:40 | PDOC.CMPRO ---
- If Service Date Differs Date of service: 05/16/21 Time of Service: 08:41 Care Management Progress Note S/O: Per nursing, Judd is unable to talk on the phone and is currently in bed wearing a CPAP. CM updated his It Field Technician from the [facility] [place] [facility]: Alexandra [phone]. She will try to connect with Judd via phone at a later time when it's easier for him to talk. She ask that we update her periodically and is available to help him with his community needs. A: 60 year old male admitted to [facility] on 05/13/21 for Covid Pneumonia with hypoxia. P: Anticipate Judd will return home when medically cleared by provider. He will follow up with his PCP and discharge plan of care. It is to soon to determine if Judd will require new CHH services and/or new home O2. His IMPLEMENTATION SPECIALIST renal case manager is Nessa Tapia and [place] [facility] renal case manager is Alexandra ([phone]), they both need to be contacted at discharge. Judd will likely transport home via EMS due to his covid diagnosis. CM will continue to follow.
--- NOTE | 2021-05-16 08:41 | PGE_ITS ---
Date of Service Date of service: 05/16/21 Time of Service: 16:18 Assessment and Plan Assessment and plan (1) Pneumonia due to COVID-19 virus: Status: Acute Assessment and plan: Clinically better. Continues to require higher level of care in the ICU. Continue remdesivir, dexamethasone, baricitinib, vitamin C and D supplementation, zinc, antitussives, cough/mucolytics, IS/acapella. Encourage proning. (2) Hypoxia: Status: Acute Assessment and plan: As above (3) Rhabdomyolysis: Status: Acute Assessment and plan: Improved. Off IVF and s/p lasix. Resolved. Consider resumption of statin tomorrow. Monitor kidney function. (4) Ambulatory dysfunction: Status: Acute Assessment and plan: Continue PT (5) Blister of left foot: Status: Acute Assessment and plan: Discussed case with podiatry: recommend mepilex and heel protector. (6) DVT prophylaxis: Status: Acute Assessment and plan: On therapeutic eliquis for Afib (7) Discharge planning issues: Status: Acute Assessment and plan: Full code as per my discussion with the patient. Critical Care Time 35 minutes. Subjective Subjective Interval history since last seen: The patient was on HHHFNC this am 50% FiO 50 L low 90s. Slept on CPAP (40 FiO2, peep of 10). On CPAP right now. Afib 50-120, a few 2.1 sec pauses. Constipated. Denies dizziness, chest pain, states shortness of breath is better, but requests cough syrup. Denies n/v. Exam Narrative Exam Narrative: General: Pleasant middle-aged male without dypsnea/tachypnea/cyanosis, on CPAP in bed HEENT: EOMI, MMM Cardiovascular: RRR, no m/r/g Lungs: Rhonchi on expiration B Gastrointestinal: soft, nontender, nondistended Extremities: no edema BLE's Objective Last Vital Signs Temp 35.8 C L 05/16/21 04:42 Pulse 53 L 05/16/21 06:01 Resp 24 05/16/21 06:50 BP 102/50 L 05/16/21 06:01 Pulse Ox 88 L 05/16/21 06:50 Laboratory Results - last 24 hr 05/13/21 05/13/21 05/14/21 10:17 10:45 06:10 PT INR D-Dimer ABG Sample Site Cancelled ABG pH Cancelled ABG pCO2 Cancelled ABG pO2 Cancelled ABG HCO3 Cancelled ABG Total CO2 Cancelled ABG O2 Saturation Cancelled ABG Base Excess Cancelled Oxygen Liter Flow Cancelled FiO2 Cancelled Sodium Potassium Chloride Carbon Dioxide Anion Gap BUN Creatinine Estimated GFR/1.73 m2 Glucose Calcium Phosphorus Magnesium Ferritin Total Bilirubin Conjugated Bilirubin AST ALT Alkaline Phosphatase C-Reactive Protein Total Protein Albumin 25-OH Vitamin D Total 16.5 L Procalcitonin Urine Color Cancelled Urine Clarity Cancelled Urine pH Cancelled Ur Specific [place] Cancelled Urine Protein Cancelled Urine Ketones Cancelled Urine Blood Cancelled Urine Nitrite Cancelled Urine Bilirubin Cancelled Urine Urobilinogen Cancelled Ur Leukocyte Esterase Cancelled Urine Glucose Cancelled 05/16/21 05/16/21 05/16/21 07:05 07:05 07:05 PT 10.7 INR 1.1 D-Dimer 690 H ABG Sample Site ABG pH ABG pCO2 ABG pO2 ABG HCO3 ABG Total CO2 ABG O2 Saturation ABG Base Excess Oxygen Liter Flow FiO2 Sodium 142 Potassium 4.1 Chloride 105 Carbon Dioxide 30.3 Anion Gap 6.7 BUN 24 H D Creatinine 0.9 Estimated GFR/1.73 m2 >= 60.00 Glucose 230 H Calcium 9.1 Phosphorus 3.2 Magnesium 2.2 Ferritin 549 H Total Bilirubin 0.4 Conjugated Bilirubin 0.2 AST 31 ALT 32 Alkaline Phosphatase 40 L C-Reactive Protein 2.20 H Total Protein 6.5 Albumin 2.4 L 25-OH Vitamin D Total Procalcitonin < 0.1 Urine Color Urine Clarity Urine pH Ur Specific [place] Urine Protein Urine Ketones Urine Blood Urine Nitrite Urine Bilirubin Urine Urobilinogen Ur Leukocyte Esterase Urine Glucose
[2021-05-16 08:47] LABS: Absolute Neutrophil Count 5.05 10^3/uL (1.2-6.7); Bands % 1
[2021-05-16 08:48] LABS: Diff Comment Manual Differential
[2021-05-16] MEDS: Zinc Sulfate 220 MG TAB PO (09:25)
[2021-05-16] MEDS: guaiFENesin 600 MG TABCR PO ×2 (09:25→21:27)
[2021-05-16] MEDS: Calcium Carbonate *TUMS* 500 MG CHEW PO ×3 (09:25→21:26)
[2021-05-16] MEDS: Cholecalciferol (Vitamin D3) 1,000 UNIT TAB 2000 UNITS PO (09:26)
[2021-05-16] MEDS: Dexamethasone 4 MG TAB 6 MG PO (09:26)
[2021-05-16] MEDS: Lisinopril 5 MG TAB PO (09:27)
[2021-05-16] MEDS: Famotidine 20 MG TAB PO ×2 (09:27→21:26)
[2021-05-16] MEDS: Ascorbic Acid 500 MG TAB 1000 MG PO ×2 (09:27→21:27)
[2021-05-16] MEDS: Apixaban 5 MG TAB PO ×2 (09:27→21:28)
[2021-05-16] MEDS: Benzonatate 100 MG CAP PO ×3 (09:27→21:28)
[2021-05-16] MEDS: Fluticasone NASAL SPRAY 16 GM BTL NS ×2 (09:57→21:29)
[2021-05-16] MEDS: Insulin Aspart 300 UNITS/3 ML PEN SC ×4 (09:59→22:35)
[2021-05-16 10:38] LABS: RBC Morphology Normal
[2021-05-16] MEDS: Nystatin POWDER 60 GM JAR TP ×2 (14:15→21:30)
[2021-05-16] MEDS: rOPINIRole 0.5 MG TAB 1 MG PO (16:49)
[2021-05-16] MEDS: guaiFENesin 200 MG/10 ML CUP PO (16:49)
[2021-05-16] MEDS: Divalproex Sodium 500 MG TAB.ER.24H 2000 MG PO (21:25)
[2021-05-16] MEDS: Docusate Sodium 100 MG CAP 200 MG PO (21:26)
[2021-05-16] MEDS: Melatonin 3 MG TAB PO (21:27)
[2021-05-16] MEDS: Senna TAB 1 TAB PO (21:27)
[2021-05-16] MEDS: LORazepam 0.5 MG TAB PO (21:27)
[2021-05-16] MEDS: Bisacodyl 5 MG TABEC PO (21:27)
[2021-05-16] MEDS: Normal Saline Flush 10 ML SYR IVP (21:29)
[2021-05-17] VITALS (86 sets, daily range): BP systolic 90–112; BP diastolic 41–74; PULSE 42–100; RESP 13–36; TEMP 35.3–36; O2SAT 87–98
[2021-05-17 07:20] LABS: HCT 51.5 % (40.0-50.0); MCH 29.9 pg (27.0-33.0); MCV 90.7 fL (80-95); MPV 11.3 fL (8.0-11.0); Nucleated RBC 0 %; Platelet Count 202 10^3/uL (130-400); RBC 5.68 10^6/uL (4.36-5.78); RDW-SD 43.8 fL; WBC 8.32 10^3/uL (4.4-10.8)
[2021-05-17 07:42] LABS: Absolute Lymphocyte Count 2.75 10^3/uL (1.2-3.4); Absolute Neutrophil Count 4.91 10^3/uL (1.2-6.7); Atypical Lymphocytes % 2
[2021-05-17 07:43] LABS: Absolute Monocyte Count 0.67 10^3/uL (0.1-0.8); Diff Comment Manual Differential; RBC Morphology Normal
[2021-05-17 07:52] LABS: D-Dimer 658 ng/mlFEU (<500)
[2021-05-17 07:55] LABS: ALT 36 U/L (16-63); AST 33 U/L (15-37); Albumin 2.8 g/dL (3.4-5.0); Alkaline Phosphatase 51 U/L (46-116); Anion Gap 8.2 mmol/L (3-11); BUN 22 mg/dL (7-18); Bilirubin, Direct 0.1 mg/dL (0.0-0.2); Bilirubin, Total 0.4 mg/dL (0.2-1.0); C-Reactive Protein 1.49 mg/dL (0.0-0.3); CO2 26.8 mmol/L (21.0-32.0); CREATININE 0.9 mg/dL (0.70-1.30); Calcium 9.4 mg/dL (8.5-10.1); Chloride 105 mmol/L (98-107); Ferritin 577 ng/mL (26-388); Glucose 205 mg/dL (74-106); Magnesium 2.2 mg/dL (1.8-2.4); PHOSPHORUS 3.9 mg/dL (2.6-4.7); Potassium 4.5 mmol/L (3.5-5.1); Sodium 140 mmol/L (136-145); Total Protein 7.5 g/dL (6.4-8.2)
[2021-05-17 07:57] LABS: Prothrombin Time 10.2 sec (9.3-11.0)
--- NOTE | 2021-05-17 08:24 | PT.INDS ---
Date of service: 05/17/21 PT Notes Visit Reasons: COVID-19 Pneumonia with Hypoxia Physical Therapy Inpatient Discharge Summary Date: 05/17/2021 Dates of Service: 05/14/2021 through 05/15/2021 This is a clinical summary of care provided for the duration of dates listed above. No charge was made in the completion of this documentation. Referring Doctor: Daksha Lopez MD PT Orders: PT CONSULT: Limited ability Precautions: Fall. Standard. Activity as tolerated. COVID-19 precautions. Patient Profile/Admitting Diagnosis: Judd is a 60-year-old male who was brought to the ED on 05/13/2021 via EMS after being found on the floor of his home by [employer] staff. Presented to the ED with generalized weakness and inability to transfer/walk. He is diagnosed with COVID-19 pneumonia, hypoxia, rhabdomyolysis, ambulatory dysfunction. PMHX: Active Problem List (Updated 05/13/21 @ 12:30 by Daksha Lopez MD) Discharge planning issues (Acute) DVT prophylaxis (Acute) Ambulatory dysfunction (Acute) Vitreous floaters of right eye (Acute) Pneumonia due to COVID-19 virus (Acute) Hypoxia (Acute) Requires supplemental oxygen (Acute) Rhabdomyolysis (Acute) Generalized weakness (Acute) Hyperthermia associated with heat (Acute) BRENNEN (acute kidney injury) (Acute) Syncope (Acute) Non-ST elevation PR (NSTEMI) (Acute) Dehydration (Acute) Screening for colorectal cancer (Acute) Medical History (Updated 05/13/21 @ 12:30 by Daksha Lopez MD) Bipolar disorder Chronic schizophrenia Diabetes mellitus, type 2 Obesity Surgical History Colonoscopy - MAC (01/25/16) 2011 Excision, Lipoma Hx of cholecystectomy Hydrocelectomy Tonsillectomy Social History/Home Situation: Lives alone in the basement of an apartment building with 2 stone steps to enter. Ambulatory in the community using a single-point cane. Equipment Owned/DME: Single-point cane Subjective: NT. See most recent GLASSWARE VERIFIER notes. Objective: General Observation: NT. See most recent GLASSWARE VERIFIER notes. Mental Status: NT. See most recent GLASSWARE VERIFIER notes. Pain: NT. See most recent GLASSWARE VERIFIER notes. Vital Signs: NT. See most recent GLASSWARE VERIFIER notes. ROM: Right Upper Extremity: Shoulder Flexion WFL. Shoulder abduction WFL. Shoulder ER/IR WFL. Elbow flexion WFL. Forearm pronation/supination WFL. Wrist flexion WFL. Opening and closing of hand WFL. Left Upper Extremity: Shoulder Flexion WFL. Shoulder abduction WFL. Shoulder ER/IR WFL. Elbow flexion WFL. Forearm pronation/supination WFL. Wrist flexion WFL. Opening and closing of hand WFL. Right Lower Extremity: Hip flexion unable to further flex at the hip beyond 90 while seated on chair. Hip abduction WFL. Hip ER/IR WFL. Knee flexion WFL. Knee extension -10 degrees. Ankle dorsiflexion/eversion to neutral only. Ankle plantarflexion/inversion WFL. Left Lower Extremity: Hip flexion unable to further flex at the hip beyond 90 while seated on chair. Hip abduction WFL. Hip ER/IR WFL. Knee flexion WFL. Knee extension -10 degrees. Ankle dorsiflexion to neutral only. Ankle plantarflexion WFL. Strength: Right Upper Extremity: Shoulder flexors 4-/5. Shoulder abductors 4-/5. Shoulder ER 4-/5. Shoulder IR 4-/5. Forearm pronators 4-/5. Forearm supinators 4-/5. Elbow flexors 4-/5. Elbow extensors 4-/5. Heating Element Repairer weak but functional. Left Upper Extremity: Shoulder flexors 4-/5. Shoulder abductors 4-/5. Shoulder ER 4-/5. Shoulder IR 4-/5. Forearm pronators 4-/5. Forearm supinators 4-/5. Elbow flexors 4-/5. Elbow extensors 4-/5. Heating Element Repairer weak but functional. Right Lower Extremity: Hip flexors 3-/5. Hip abductors 3+/5. Hip external rotators 3+/5. Hip internal rotators 3+/5. Knee flexors 3-/5. Knee extensors 3-/5. Ankle dorsiflexors/evertors 3-/5. Ankle plantarflexors/invertors 3-/5. Left Lower Extremity: Hip flexors 3-/5. Hip abductors 3+/5. Hip external rotators 3+/5. Hip internal rotators 3+/5. Knee flexors 3-/5. Knee extensors 3-/5. Ankle dorsiflexors/evertors 3-/5. Ankle plantarflexors/invertors 3-/5. Bed Mobility/Transfers: Sit to stand independent Stand to sit independent Bed to chair independent Gait: Able to walk up to 20 feet inside room per nursing staff with FWW. Able to do short ambulation without an assistive device to transfer bed to wheelchair. Balance: Static Sitting: Normal Dynamic Sitting: Good Static Standing: Fair Dynamic Standing: Fair Assessment: Patient is now made independent inside room with FWW for all transfers and ambulation inside room. Goals: Goals X1 week 1. Supine-Sit independent MET 2. Sit-Supine independent MET 3. Sit-Stand independent MET 4. Stand-Sit independent with SPC MET 5. Bed-Chair independent with SPC MET 6. Chair-Bed independent with SPC MET 7. Standby assist gait on level surface with use of SPC for at least 50 feet without report of pain nor dyspnea MET 8. Standby assist stair negotiation while holding onto 1 rails for at least 3 steps without report of pain nor dyspnea MET 9. Good static and dynamic standing balance/tolerance MET DISCHARGE RECOMMENDATIONS: [] Home with no services [] [X] Home with services when medically cleared by hospitalist. Patient will benefit from home health PT services in order to progress mobility level using least restrictive assistive ambulatory device, assess home safety, identify additional equipment needs, and establish a functional maintenance program that will increase ability of patient to remain at home. [] Home with outpatient PT [] [] SNF for continued rehabilitation [] [] [facility] Television Installer [facility] [] [] SNF versus LTC based on ability to participate and progress [] TREATMENT CODE/TIME: MA Thank you for the opportunity to participate in the care of this patient. Karli Burrows PT, DPT, CLT [facility] [place], [place]
--- NOTE | 2021-05-17 08:41 | CMPROGNOTE_ITS ---
- If Service Date Differs Date of service: 05/17/21 Time of Service: 08:41 Care Management Progress Note S/O: Per MD, Judd remains on 5L-is showing progress and may be transferred to Med/Surg floor today. PT has discharged him from their service as he is now independent with FWW for all transfers and ambulation inside room. CM continues to follow. A: 60 year old male admitted to [facility] on 05/13/21 for Covid Pneumonia with hypoxia. P: Anticipate Judd will return home when medically cleared by provider. He will follow up with his PCP and discharge plan of care. Undetermined if Judd will require new H services and/or new home O2. His SHIFT SUPERVISOR MELTING shelter case manager is Nessa Tapia and [facility] shelter case manager is Alexandra ([phone]), both have requested notification prior to discharge. Judd will likely transport home via EMS due to his Covid precautions. CM will continue to follow.
[2021-05-17] MEDS: Benzonatate 100 MG CAP PO ×3 (10:08→20:50)
[2021-05-17] MEDS: Dexamethasone 4 MG TAB 6 MG PO (10:09)
[2021-05-17] MEDS: Famotidine 20 MG TAB PO ×2 (10:09→20:51)
[2021-05-17] MEDS: Senna TAB 1 TAB PO ×2 (10:10→20:49)
[2021-05-17] MEDS: Calcium Carbonate *TUMS* 500 MG CHEW PO ×2 (10:10→20:50)
[2021-05-17] MEDS: Normal Saline Flush 10 ML SYR IVP ×3 (10:10→20:51)
[2021-05-17] MEDS: Cholecalciferol (Vitamin D3) 1,000 UNIT TAB 2000 UNITS PO (10:10)
[2021-05-17] MEDS: Ascorbic Acid 500 MG TAB 1000 MG PO ×2 (10:10→20:53)
[2021-05-17] MEDS: guaiFENesin 600 MG TABCR PO ×2 (10:10→20:50)
[2021-05-17] MEDS: Zinc Sulfate 220 MG TAB PO (10:11)
[2021-05-17] MEDS: Apixaban 5 MG TAB PO ×2 (10:11→20:50)
[2021-05-17] MEDS: Bisacodyl 5 MG TABEC PO (10:11)
[2021-05-17] MEDS: Docusate Sodium 100 MG CAP 200 MG PO ×2 (10:11→20:50)
[2021-05-17] MEDS: Lisinopril 5 MG TAB PO (10:11)
[2021-05-17] MEDS: Fluticasone NASAL SPRAY 16 GM BTL NS ×2 (10:12→20:49)
[2021-05-17] MEDS: Insulin Aspart 300 UNITS/3 ML PEN SC ×4 (10:12→22:57)
[2021-05-17] MEDS: Nystatin POWDER 60 GM JAR TP ×3 (10:12→20:49)
--- NOTE | 2021-05-17 11:28 | NUR.NOTE ---
This property underwriter went in room to help patient with shalini-care. Patient refused and said Leave the pull up there and i'll do it. I did agree with the patient as I did not want to further agitate him. I did empty bedside commode, clean urine off floor and make bed. RN notified. Nursing Note:
--- NOTE | 2021-05-17 12:31 | W.PM.PROGNOT ---
Date of Service Date of service: 05/17/21 Time of Service: 12:31 Assessment and Plan Assessment and plan (1) Pneumonia due to COVID-19 virus: Status: Acute Assessment and plan: Improving Ok to transfer to medical surgical floor. Continue remdesivir, dexamethasone, baricitinib, vitamin C and D supplementation, zinc, antitussives, cough/mucolytics, IS/acapella. Encourage proning. Give lasix 20 mg IV x1. (2) Hypoxia: Status: Acute Assessment and plan: As above (3) Rhabdomyolysis: Status: Resolved Assessment and plan: Improved. Off IVF and s/p lasix. Resolved. Resume statin Monitor kidney function. (4) Ambulatory dysfunction: Status: Resolved Assessment and plan: Doing really well, independent in the room and discharged from PT. (5) Blister of left foot: Status: Acute Assessment and plan: Discussed case with podiatry: recommend mepilex and heel protector. (6) DVT prophylaxis: Status: Acute Assessment and plan: On therapeutic eliquis for Afib (7) Discharge planning issues: Status: Acute Assessment and plan: Full code as per my discussion with the patient. Transfer out of ICU. Subjective Subjective Interval history since last seen: I'm comfortable! States he slept very well last night. Denies dizziness, chest pain, shortness of breath, nausea. Continues to cough. Slept on CPAP - 21-30% FiO2. At the end of the day, was on 5L of O2 by NC. 3L by NC now. Exam Narrative Exam Narrative: General: Pleasant middle-aged male without dypsnea/tachypnea/cyanosis, on 3L of O2 by NC, coughing HEENT: EOMI, MMM Cardiovascular: RRR, no m/r/g Lungs: Rhonchi and rales on expiration B Gastrointestinal: soft, nontender, nondistended Extremities: trace edema BLE's Objective Last Vital Signs Temp 35.9 C L 05/17/21 12:24 Pulse 64 05/17/21 09:50 Resp 18 05/17/21 10:10 BP 107/70 05/17/21 09:50 Pulse Ox 92 05/17/21 10:45 Laboratory Results - last 24 hr 05/17/21 05/17/21 05/17/21 06:25 06:25 06:25 WBC 8.32 RBC 5.68 Hgb 17.0 D Hct 51.5 H MCV 90.7 MCH 29.9 MCHC 33.0 RDW 13.0 Plt Count 202 MPV 11.3 H Immature Gran % 0.0 Neutrophils % 59.0 Lymphocytes % 31.0 Atypical Lymphs % 2 Monocytes % 8.0 Eosinophils % 0.0 Basophils % 0.0 Nucleated RBC % 0 Absolute Neutrophils 4.91 Absolute Lymphocytes 2.75 Absolute Monocytes 0.67 Absolute Eosinophils 0.00 Absolute Basophils 0.00 RBC Morphology Normal PT 10.2 INR 1.0 D-Dimer 658 H Sodium 140 Potassium 4.5 Chloride 105 Carbon Dioxide 26.8 Anion Gap 8.2 BUN 22 H Creatinine 0.9 Estimated GFR/1.73 m2 >= 60.00 Glucose 205 H Calcium 9.4 Phosphorus 3.9 Magnesium 2.2 Ferritin 577 H Total Bilirubin 0.4 Conjugated Bilirubin 0.1 AST 33 ALT 36 Alkaline Phosphatase 51 C-Reactive Protein 1.49 H Total Protein 7.5 Albumin 2.8 L
--- NOTE | 2021-05-17 12:47 | NT_ITS ---
Date of service: 05/17/21 PT Notes Visit Reasons: COVID-19 Pneumonia with Hypoxia No skilled services needed at this time. Patient is now independent with FWW inside room for all transfers and ambulation performance. MD made aware of patient's current mobility status and is agreeable with discontinuation of serv ices. Thank you for the opportunity to participate in the care of this patient. Karli Burrows PT, DPT, CLT [facility] [place], [place]
[2021-05-17] MEDS: Furosemide 20 MG/2 ML VIAL IVP (14:29)
[2021-05-17] MEDS: Normal Saline 500 ML 30 ML IV (14:30)
[2021-05-17] MEDS: rOPINIRole 0.5 MG TAB 1 MG PO (17:19)
[2021-05-17] MEDS: Milk of Magnesia 30 ML CUP PO (20:49)
[2021-05-17] MEDS: Atorvastatin 10 MG TAB PO (20:50)
[2021-05-17] MEDS: Divalproex Sodium 500 MG TAB.ER.24H 2000 MG PO (22:57)
[2021-05-18] VITALS (10 sets, daily range): BP systolic 91–129; BP diastolic 53–70; PULSE 65–98; RESP 20–22; TEMP 36.2–37.2; O2SAT 84–97
[2021-05-18 07:15] LABS: Abs Immature Grans 0.52 10^3/uL (0.0-0.06); HCT 47.8 % (40.0-50.0); HGB 15.9 g/dL (13.5-17.5); MCH 30.1 pg (27.0-33.0); MCHC 33.3 % (32.0-36.0); MCV 90.5 fL (80-95); MPV 11.2 fL (8.0-11.0); Nucleated RBC 0 %; RBC 5.28 10^6/uL (4.36-5.78); RDW 12.6 % (11.8-14.1); RDW-SD 41.6 fL
[2021-05-18 07:29] LABS: ALT 31 U/L (16-63); AST 24 U/L (15-37); Albumin 2.6 g/dL (3.4-5.0); Alkaline Phosphatase 49 U/L (46-116); Anion Gap 5.8 mmol/L (3-11); BUN 23 mg/dL (7-18); Bilirubin, Direct 0.2 mg/dL (0.0-0.2); Bilirubin, Total 0.5 mg/dL (0.2-1.0); C-Reactive Protein 0.96 mg/dL (0.0-0.3); CO2 31.2 mmol/L (21.0-32.0); CREATININE 0.9 mg/dL (0.70-1.30); Calcium 9.5 mg/dL (8.5-10.1); Chloride 104 mmol/L (98-107); Creatine Kinase 118 U/L (39-308); Glucose 190 mg/dL (74-106); Potassium 3.8 mmol/L (3.5-5.1); Sodium 141 mmol/L (136-145); Total Protein 6.7 g/dL (6.4-8.2)
[2021-05-18 07:32] LABS: Absolute Lymphocyte Count 2.86 10^3/uL (1.2-3.4); Absolute Monocyte Count 0.82 10^3/uL (0.1-0.8); Absolute Neutrophil Count 6.43 10^3/uL (1.2-6.7); Atypical Lymphocytes % 2; Diff Comment Manual Differential; INR 1.1 (0.9-1.1); Platelet Count 312 10^3/uL (130-400); Prothrombin Time 10.7 sec (9.3-11.0); RBC Morphology Normal
[2021-05-18 07:56] LABS: Procalcitonin < 0.1 ng/mL
[2021-05-18 08:00] LABS: D-Dimer 531 ng/mlFEU (<500)
[2021-05-18] MEDS: Dexamethasone 4 MG TAB 6 MG PO (10:25)
[2021-05-18] MEDS: Calcium Carbonate *TUMS* 500 MG CHEW PO ×2 (10:25→21:22)
[2021-05-18] MEDS: Cholecalciferol (Vitamin D3) 1,000 UNIT TAB 2000 UNITS PO (10:25)
[2021-05-18] MEDS: Famotidine 20 MG TAB PO ×2 (10:25→21:26)
[2021-05-18] MEDS: Lisinopril 5 MG TAB PO (10:26)
[2021-05-18] MEDS: Benzonatate 100 MG CAP PO ×2 (10:26→21:26)
[2021-05-18] MEDS: Apixaban 5 MG TAB PO ×2 (10:26→21:26)
[2021-05-18] MEDS: Ascorbic Acid 500 MG TAB 1000 MG PO ×2 (10:26→21:26)
[2021-05-18] MEDS: guaiFENesin 600 MG TABCR PO ×2 (10:26→21:26)
[2021-05-18] MEDS: Zinc Sulfate 220 MG TAB PO (10:27)
[2021-05-18] MEDS: Nystatin POWDER 60 GM JAR TP ×2 (10:28→21:26)
[2021-05-18] MEDS: Insulin Aspart 300 UNITS/3 ML PEN SC ×4 (10:29→21:28)
--- NOTE | 2021-05-18 14:04 | PGE_ITS ---
Date of Service Date of service: 05/18/21 Time of Service: 14:04 Assessment and Plan Assessment and plan (1) Pneumonia due to COVID-19 virus: Status: Acute Assessment and plan: Now out of the ICU Continues to need supervision/encouragement to be sure he keeps his nasal cannula in place. Continue remdesivir, dexamethasone, baricitinib, vitamin C and D supplementation, zinc, antitussives, cough/mucolytics, IS/acapella. Encourage proning. Give lasix 20 mg IV x1 on 05/17. (2) Hypoxia: Status: Acute Assessment and plan: As above (3) Rhabdomyolysis: Status: Resolved Assessment and plan: Improved. Off IVF and s/p lasix. Resolved. Resumed statin Monitor kidney function; currently normal. (4) Ambulatory dysfunction: Status: Resolved Assessment and plan: Doing really well, independent in the room and discharged from PT. (5) Blister of left foot: Status: Acute Assessment and plan: Discussed case with podiatry: recommend mepilex and h eel protector. (6) DVT prophylaxis: Status: Acute Assessment and plan: On therapeutic eliquis for Afib (7) Discharge planning issues: Status: Acute Assessment and plan: Full code as per my discussion with the patient. Transfer out of ICU. Subjective Subjective Patient reports: no new complaints, tolerating a regular diet and afebrile; denies bowel movement Interval history since last seen: Pt states he is tired today. No increased SOA. Exam Narrative Exam Narrative: General: Pleasant middle-aged male without dypsn ea/tachypnea/cyanosis, on 2L of O2 by NC, lying in bed. HEENT: EOMI, MMM Cardiovascular: RRR, no m/r/g Lungs: Soft Rhonchi and rales on expiration B Gastrointestinal: soft, nontender, nondistended Extremities: trace edema BLE's. No calf tenderness. Psych: A&O x 2. Affect is flat. Objective Last Vital Signs Temp 37 C 05/18/21 08:08 Pulse 79 05/18/21 08:08 Resp 21 05/18/21 08:08 BP 129/70 05/18/21 08:08 Pulse Ox 91 L 05/18/21 08:08 Laboratory Results - last 24 hr 05/18/21 05/18/21 05/18/21 06:50 06:50 06:50 WBC 10.20 RBC 5.28 Hgb 15.9 Hct 47.8 MCV 90.5 MCH 30.1 MCHC 33.3 RDW 12.6 Plt Count 312 D MPV 11.2 H Immature Gran % See Differential Neutrophils % 63.0 Lymphocytes % 26.0 Atypical Lymphs % 2 Monocytes % 8.0 Eosinophils % 1.0 Basophils % 0.0 Nucleated RBC % 0 Absolute Neutrophils 6.43 Absolute Lymphocytes 2.86 Absolute Monocytes 0.82 H Absolute Eosinophils 0.10 Absolute Basophils 0.00 RBC Morphology Normal PT INR D-Dimer Sodium 141 Potassium 3.8 Chloride 104 Carbon Dioxide 31.2 Anion Gap 5.8 BUN 23 H Creatinine 0.9 Estimated GFR/1.73 m2 >= 60.00 Glucose 190 H Calcium 9.5 Magnesium 2.0 Total Bilirubin 0.5 Conjugated Bilirubin 0.2 AST 24 ALT 31 Alkaline Phosphatase 49 Creatine Kinase 118 C-Reactive Protein 0.96 H Total Protein 6.7 Albumin 2.6 L Procalcitonin < 0.1 05/18/21 06:50 WBC RBC Hgb Hct MCV MCH MCHC RDW Plt Count MPV Immature Gran % Neutrophils % Lymphocytes % Atypical Lymphs % Monocytes % Eosinophils % Basophils % Nucleated RBC % Absolute Neutrophils Absolute Lymphocytes Absolute Monocytes Absolute Eosinophils Absolute Basophils RBC Morphology PT 10.7 INR 1.1 D-Dimer 531 H Sodium Potassium Chloride Carbon Dioxide Anion Gap BUN Creatinine Estimated GFR/1.73 m2 Glucose Calcium Magnesium Total Bilirubin Conjugated Bilirubin AST ALT Alkaline Phosphatase Creatine Kinase C-Reactive Protein Total Protein Albumin Procalcitonin
[2021-05-18] MEDS: rOPINIRole 0.5 MG TAB 1 MG PO (17:25)
[2021-05-18] MEDS: Milk of Magnesia 30 ML CUP PO (17:36)
[2021-05-18] MEDS: Bisacodyl 5 MG TABEC PO (17:37)
[2021-05-18] MEDS: Atorvastatin 10 MG TAB PO (21:22)
[2021-05-18] MEDS: Normal Saline Flush 10 ML SYR IVP (21:22)
[2021-05-18] MEDS: Divalproex Sodium 500 MG TAB.ER.24H 2000 MG PO (21:22)
[2021-05-18] MEDS: Fluticasone NASAL SPRAY 16 GM BTL NS (21:27)
[2021-05-19] VITALS (14 sets, daily range): BP systolic 112–132; BP diastolic 74–76; PULSE 86–115; RESP 20–29; TEMP 30–40; O2SAT 92–97
[2021-05-19] MEDS: Insulin Aspart 300 UNITS/3 ML PEN SC ×2 (09:01→14:40)
[2021-05-19 10:02] LABS: Abs Immature Grans 0.78 10^3/uL (0.0-0.06); HCT 54.1 % (40.0-50.0); HGB 17.8 g/dL (13.5-17.5); MCH 30.4 pg (27.0-33.0); MCHC 32.9 % (32.0-36.0); MCV 92.3 fL (80-95); MPV 10.9 fL (8.0-11.0); Nucleated RBC 0 %; Platelet Count 345 10^3/uL (130-400); RBC 5.86 10^6/uL (4.36-5.78); RDW 13.1 % (11.8-14.1); RDW-SD 44.7 fL
[2021-05-19 10:13] LABS: Anion Gap 7.1 mmol/L (3-11); BUN 25 mg/dL (7-18); C-Reactive Protein 3.91 mg/dL (0.0-0.3); CO2 29.9 mmol/L (21.0-32.0); CREATININE 1.4 mg/dL (0.70-1.30); Calcium 9.7 mg/dL (8.5-10.1); Chloride 102 mmol/L (98-107); Estimated GFR 51.35 (mL/min/1.73m2); Glucose 218 mg/dL (74-106); Potassium 4.7 mmol/L (3.5-5.1); Sodium 139 mmol/L (136-145)
[2021-05-19 10:19] LABS: Lactate 2.4 mmol/L (0.6-1.4)
[2021-05-19 10:22] LABS: Atypical Lymphocytes % 1
[2021-05-19 10:23] LABS: Absolute Basophil Count 0.15 10^3/uL (0.0-0.2); Absolute Monocyte Count 1.05 10^3/uL (0.1-0.8); Diff Comment Manual Differential; Metamyelocytes % 1
[2021-05-19 10:24] LABS: RBC Morphology Normal
[2021-05-19 10:34] LABS: D-Dimer 634 ng/mlFEU (<500)
[2021-05-19 11:06] LABS: BE 5 mmol/L (-2-3); HCO3 28 mmol/L (22-26); pCO2 33 mmHg (35-45); pH 7.54 (7.35-7.45); pO2 62 mmHg (80-105); sO2 93 % (95-98); tCO2 23 mmol/L (23-27)
[2021-05-19 11:10] LABS: FIO2L 4 L; Site Right Radial
[2021-05-19] MEDS: VANCOMYCIN/WATER (PEG) 2 GM/400 ML BAG IV (12:09)
--- NOTE | 2021-05-19 13:00 | DI.RAD_ITS ---
Exam(s) XR PORTABLE CHEST AP EXAM: XR PORTABLE CHEST AP CLINICAL HISTORY: COVID, obtunded, cough TECHNIQUE: 2D digital imaging was performed of the chest. Two images were obtained. An AP view was obtained. COMPARISON: CR XR PORTABLE CHEST AP from 05/13/2021 FINDINGS: MEDIASTINUM: Normal. HEART: Normal. PULMONARY VASCULATURE: Normal. LUNGS: Overall improved appearance of the pulmonary infiltrates. Residual infiltrates are seen in th e lower lobes, left greater than right. PLEURAL SPACE: No pleural effusion or pneumothorax. BONE:Within normal limits for the patient's age. OTHER FINDINGS:Normal. IMPRESSION: Overall improved appearance of the lung lucio compared to 05/13/2021. DATA REPOSITORY: RADIATION DOSE DELIVERED:
--- NOTE | 2021-05-19 13:18 | PGE_ITS ---
Date of Service Date of service: 05/19/21 Time of Service: 13:18 Assessment and Plan Assessment and plan (1) Pneumonia due to COVID-19 virus: Status: Acute Assessment and plan: Now out of the ICU Continues to need supervision/encouragement to be sure he keeps his nasal cannula in place. Continue remdesivir, dexamethasone, baricitinib, vitamin C and D supplementation, zinc, antitussives, cough/mucolytics, IS/acapella. Encourage proning. Give lasix 20 mg IV x1 on 05/17. (2) Hypoxia: Status: Acute Assessment and plan: As above (3) Rhabdomyolysis: Status: Resolved Assessment and plan: Improved. Off IVF and s/p lasix. Resolved. Resumed statin Monitor kidney function; currently normal. (4) Ambulatory dysfunction: Status: Resolved Assessment and plan: Doing really well, independent in the room and discharged from PT. (5) Blister of left foot: Status: Acute Assessment and plan: Discussed case with podiatry: recommend mepilex and h eel protector. (6) DVT prophylaxis: Status: Acute Assessment and plan: On therapeutic eliquis for Afib (7) Discharge planning issues: Status: Acute Assessment and plan: Full code as per my discussion with the patient. Transfer out of ICU. (8) Cellulitis of left ankle: Status: Acute Assessment and plan: WBC count and CRP both increased. Lactate increased to 2.4 (1.7 on 05/13). No fever. Likely causing metabolic acidosis with ABG showing compensatory resp alkalosis. Cefepime and vancomycin initiated. Blood cultures obtained. (9) Alkalosis: Status: Acute Assessment and plan: Metabolic acidosis with overcompensated respiratory alkalosis. Now lethargic/obtunded. Source could be cellulitis of left ankle. Concerned with bacterial PNA in background of COVID PNA. CXR pending. Cefepime and Vancomycin initiated. Transferred to ICU Subjective Subjective Patient reports: afebrile; denies diarrhea and vomiting Interval history since last seen: Patient reportedly lethargic this AM. Was obtunded with mod increased work of breathing. He did not respond to verbal stimuli Exam Narrative Exam Narrative: General: Pleasant middle-aged male without dypsnea/tachypnea/cyanosis, on 2L of O2 by NC, lying in bed. HEENT: EOMI, MMM Cardiovascular: RRR, no m/r/g Lungs: Soft Rhonchi and rales on expiration B Gastrointestinal: soft, nontender, nondistended Extremities: trace edema BLE's. No calf tenderness. Psych: A&O x 2. Affect is flat. Const General: lethargic and other (Lying with head of bed slightly raised. Mouth breathing. Eyes closed.) Nutritional Appearance: overweight Resp Effort & Inspection: respiratory distress (mild to moderate increased work of breathing. ) Cardio Rate: tachycardic Rhythm: regular rhythm GI Palpation: soft and nontender (No grimace or guarding with palpation. ) Skin General skin exam: erythema (left anterior ankle. No purulent lesions.) Extrem General: no pedal edema Objective Last Vital Signs Temp 36.1 C L 05/19/21 12:45 Pulse 102 H 05/19/21 12:45 Resp 29 H 05/19/21 12:45 BP 132/74 05/19/21 12:45 Pulse Ox 97 05/19/21 12:45 Laboratory Results - last 24 hr 05/19/21 05/19/21 05/19/21 09:55 09:55 09:55 WBC 15.00 H D RBC 5.86 H Hgb 17.8 H Hct 54.1 H MCV 92.3 MCH 30.4 MCHC 32.9 RDW 13.1 Plt Count 345 MPV 10.9 Immature Gran % See Differential Neutrophils % 82.0 Lymphocytes % 7.0 Atypical Lymphs % 1 Monocytes % 7.0 Eosinophils % 2.0 Basophils % 1.0 Metamyelocytes % 1 Nucleated RBC % 0 Absolute Neutrophils 12.30 H Absolute Lymphocytes 1.20 Absolute Monocytes 1.05 H Absolute Eosinophils 0.30 Absolute Basophils 0.15 RBC Morphology Normal D-Dimer 634 H ABG Sample Site ABG pH ABG pCO2 ABG pO2 ABG HCO3 ABG Total CO2 ABG O2 Saturation ABG Base Excess VBG Lactate Oxygen Liter Flow Sodium 139 Potassium 4.7 D Chloride 102 Carbon Dioxide 29.9 Anion Gap 7.1 BUN 25 H Creatinine 1.4 H Estimated GFR/1.73 m2 51.35 Glucose 218 H Calcium 9.7 C-Reactive Protein 3.91 H 05/19/21 05/19/21 09:55 10:55 WBC RBC Hgb Hct MCV MCH MCHC RDW Plt Count MPV Immature Gran % Neutrophils % Lymphocytes % Atypical Lymphs % Monocytes % Eosinophils % Basophils % Metamyelocytes % Nucleated RBC % Absolute Neutrophils Absolute Lymphocytes Absolute Monocytes Absolute Eosinophils Absolute Basophils RBC Morphology D-Dimer ABG Sample Site Right Radial ABG pH 7.54 H ABG pCO2 33 L ABG pO2 62 L ABG HCO3 28 H ABG Total CO2 23 ABG O2 Saturation 93 L ABG Base Excess 5 H VBG Lactate 2.4 H* Oxygen Liter Flow 4 Sodium Potassium Chloride Carbon Dioxide Anion Gap BUN Creatinine Estimated GFR/1.73 m2 Glucose Calcium C-Reactive Protein
[2021-05-19] MEDS: Nystatin POWDER 60 GM JAR TP ×3 (13:48→20:35)
[2021-05-19 13:57] LABS: Absolute Neutrophil Count 12.15 10^3/uL (1.2-6.7)
[2021-05-19] MEDS: CEFEPIME 2 GM in Normal Saline 100 ML IVPB (14:12)
--- NOTE | 2021-05-19 15:00 | NUR.NOTE ---
New Mepilex applied to left heel.Nursing Note:
--- NOTE | 2021-05-19 15:04 | DI.VRAD_ITS ---
PROCEDURE INFORMATION: Exam: XR Chest Exam date and time: 05/19/2021 12:56 PM Age: 60 years old Clinical indication: Other: Covid, obtunded, cough TECHNIQUE: Imaging protocol: XR of the chest. Views: 1 view. COMPARISON: CR XR PORTABLE CHEST AP 05/13/2021 10:58 AM FINDINGS: Lungs: Slightly improved aeration both lungs with persistent patchy bilateral lung opacities. Pleural spaces: No pneumothorax. No sizable pleural effusion. Heart/Mediastinum: Decreased prominence of the cardiomediastinal silhouette. Bones/joints: No acute displaced fracture. IMPRESSION: Slightly improved aeration both lungs. Continued follow-up to resolution recommended. Dictated and Authenticated by: Joon Minaya MD. Ordering:LOGAN Llanos MD
[2021-05-19] MEDS: Lactated Ringers 1,000 ML 100 ML IV (16:28)
--- NOTE | 2021-05-19 17:32 | WOUNDCONS ---
- If Service Date Differs Date of service: 05/19/21 Time of Service: 16:45 Wound Initial Evaluation Narrative: Patient is a 60 yom. He is seen here for Covid pneumonia, Rhabdomylosis, and Hypoxemia. Patient also has a hx significant for NSTEMI, DM type 2, Bipolar, and Schizophrenia. He was admitted with what the primary ICU nurse described as a purple hard round spot on his left heel. Hospitalist had spoken to a [employer] over the phone who had made recommendations. Hospitalist has now asked wound nursing to look at the wound and manage as specified. This wound nurse greeted the patient and he was non responsive. Patient's primary ICU nurse had spoken to the family and stated and knew they would want the consult to be performed and co-signs the consent. Based on patient's condition, computer is left out of the room, thus a picture was not taken. Primary nurse assists wound nurse with the consult. Patient's H&P, allergies, and other pertinent information were reviewed prior to entering the room. - Wound Left Foot Wound Type: Other (blister) Pressure Ulcer Stage: Eschar/Unstageable Wound General Appearance: Reddened, Unapproximated Wound Bed Greatest Portion: Other (Cannot see the base of the wound d/t the blister) Wound Surrounding Tissue Appearance: Greenback Wound Length: 7.1 cm Wound Width: 2.2 cm Wound Depth: 0.1 cm (greater than estimated) Wound Drainage Amount: None Wound Drainage Odor: None/Absent Wound Drainage Description: No drainage Wound Topical Solution/Irrigant: Saline Irrigant Wound Debridement Method: Gauze Wound Debridement Result: Other (No tissue removed, blister remains) Wound Debridement Amount of Tissue Removed: None - Circulation, Sensation, Motion Peripheral Pulse Strength: Normal Capillary Refill: Less than 3 seconds Sensation Description: Within Normal Limits (patient did not have a painful response to the debridement, he appeared to be aware that I was touching the heel.) Skin Temperature: Warm Skin Color: Pale - FELICITY Comment:: not applicable - Pain Pain Level: 0 Pain Scale Used: Visual Analog Scale 0-10 This wound was present on the patient when he was admitted. Protecting the heel and offloading pressure would be best practice at this time. Wound could be revisited once the blister opens and a new plan of treatment could be ordered at that time. - Treatment/Dressing Change Topicals/Ointments: None Cleanse With: Saline Additional Other Comments: Patient would benefit from Podiatry consult - Recomendation Recomendation:: Left Heel. Cleanse with Normal Saline and gauze, then pat dry. Cut a 4 by 12 Mepilex in half and apply for protection. Apply heel protector over the Mepilex for further protection. Keep heels floated off the bed to off load pressure. Change dressing every 3 days or PRN if dislodged Physcian/Nurse Practioner Notified: Yes (Dr. Villarreal) Referrals: Podiatry Treatment Time - Time Total Time Spent with Patient: 45 minutes - Patient Will be Seen Weekly Treatment: 2x/wk - For: For:: 1 week
[2021-05-19] MEDS: Pantoprazole 40 MG VIAL IVP (22:38)
[2021-05-19] MEDS: Lidocaine 2% Jelly 6 ML SYR (22:38)
[2021-05-19] MEDS: Bisacodyl 10 MG SUPP PR (22:38)
[2021-05-19] MEDS: ACETAMINOPHEN 1,000 MG/100 ML BTL 400 MG IVPB (22:39)
[2021-05-19] MEDS: Nystatin 500000 UNITS/5 ML SUSP 5ML CUP PO (22:39)
[2021-05-20] VITALS (78 sets, daily range): BP systolic 99–134; BP diastolic 56–89; PULSE 82–123; RESP 16–37; TEMP 28–39.9; O2SAT 87–97
[2021-05-20] MEDS: Insulin Aspart 300 UNITS/3 ML PEN SC ×5 (01:07→23:47)
[2021-05-20] MEDS: VANCOMYCIN/WATER (PEG) 1.25 GM/250 ML BAG IVPB ×3 (01:08→23:33)
[2021-05-20] MEDS: CEFEPIME 2 GM in Normal Saline 100 ML IVPB ×2 (03:24→16:41)
[2021-05-20] MEDS: Lactated Ringers 1,000 ML 100 ML IV (03:40)
--- NOTE | 2021-05-20 05:04 | NUR.NOTE ---
0030 pt agitated but now awake garbled speech but able to understand pt need to have a BM. pt falls asleep again before bed kang arrives and will not wake and fights turning to be placed on bedpan. Pt pt placed himself on his side and now desats. high flow system removed d/t sa02 82 and cpap started at this time sa02 now at 91
[2021-05-20] MEDS: Nystatin 500000 UNITS/5 ML SUSP 5ML CUP PO ×4 (06:39→22:23)
[2021-05-20 07:19] LABS: HCT 51.8 % (40.0-50.0); HGB 16.5 g/dL (13.5-17.5); MCH 29.9 pg (27.0-33.0); MCHC 31.9 % (32.0-36.0); MPV 11.1 fL (8.0-11.0); Nucleated RBC 0 %; Platelet Count 297 10^3/uL (130-400); RBC 5.51 10^6/uL (4.36-5.78); RDW 13.5 % (11.8-14.1); RDW-SD 46.9 fL; WBC 16.71 10^3/uL (4.4-10.8)
[2021-05-20 07:30] LABS: BUN 23 mg/dL (7-18); C-Reactive Protein 15.71 mg/dL (0.0-0.3); CREATININE 1.2 mg/dL (0.70-1.30); Calcium 9.1 mg/dL (8.5-10.1); Chloride 103 mmol/L (98-107); Glucose 185 mg/dL (74-106); Potassium 4.4 mmol/L (3.5-5.1); Sodium 138 mmol/L (136-145)
--- NOTE | 2021-05-20 07:30 | NT_ITS ---
Date of service: 05/20/21 Time of Service: 07:30 Occupational Therapy Notes 05/20/21 OT consult received and pts chart was reviewed, per RN pt is having difficulty verbally responding and is groggy so it was recommended that OT hold on consult for today. OT will attempt again tomorrow. Ellie Rodriguez OTR/[facility]
[2021-05-20 07:34] LABS: Absolute Monocyte Count 0.33 10^3/uL (0.1-0.8); Absolute Neutrophil Count 15.37 10^3/uL (1.2-6.7); Atypical Lymphocytes % 2; Bands % 2; Diff Comment Manual Differential; RBC Morphology Normal
[2021-05-20 07:59] LABS: Lactate 4.9 mmol/L (0.9-1.7)
[2021-05-20 08:28] LABS: D-Dimer 960 ng/mlFEU (<500)
[2021-05-20] MEDS: Normal Saline Flush 10 ML SYR IVP ×2 (08:35→09:32)
[2021-05-20] MEDS: Furosemide 20 MG/2 ML VIAL IVP (09:32)
[2021-05-20] MEDS: Nystatin POWDER 60 GM JAR TP ×3 (09:32→21:10)
[2021-05-20] MEDS: ACETAMINOPHEN 1,000 MG/100 ML BTL 400 MG IVPB ×2 (09:33→19:37)
--- NOTE | 2021-05-20 10:23 | PDOC.CMPRO ---
- If Service Date Differs Date of service: 05/20/21 Time of Service: 10:23 Care Management Progress Note S/O: Judd made it out of the ICU yesterday, since his COVID was improving however he was transferred back due to obtundation thought to be due to sepsis from a LLL cellulitis. He is receiving IV antibiotics. PT discharged Judd from their service since he was independent with transfers and ambulation inside room. PT re-eval may be helpful when he is feeling better. CM continues to follow. A: 60 year old male admitted to [facility] on 05/13/21 for Covid Pneumonia with hypoxia. P: Anticipate Judd will return home when medically cleared by provider. He will follow up with his PCP and discharge plan of care. Undetermined if Judd will require new H services and/or new home O2. His [employer]PER[employer] special education case manager is Nessa Tapia and [place] on aging special education case manager is Alexandra ([phone]), both have requested notification prior to discharge. Judd will likely transport home via EMS due to his Covid precautions. CM will continue to follow.
--- NOTE | 2021-05-20 10:28 | NT_ITS ---
Date of service: 05/20/21 Time of Service: 10:28 PT Notes Visit Reasons: COVID-19 Pneumonia with Hypoxia Patient is now obtunded and is not appropriate for services at this time. MD advised to hold off until patient's condition stabilizes. Will await another referral before patient is seen for an evalaution. Thank you for the opportunity to participate in the care of this patient. Karli Burrows PT, DPT, CLT [facility] [place] [employer], [place]
--- NOTE | 2021-05-20 10:55 | DI.CT_ITS ---
Exam(s) CT HEAD WO EXAM: CT HEAD WO CLINICAL HISTORY: Sepsis, obtunded state. TECHNIQUE: Imaging Protocol: Axial computed tomography images with coronal and sagittal reformatted images were created and reviewed COMPARISON: CT CT HEAD WO from 05/01/2021 FINDINGS: There are no skull fractures nor fluid in the visualized paranasal sinuses. There is, however, circ umferential mucosal thickening in the left maxillary sinus. No bone dehiscence. Osteoma noted at th e right frontoethmoidal recess, this measuring approximately 1.6 x 1.4 cm. There is no evidence of intracranial hemorrhage, mass effect, or shift of midline structures. There are no extra-axial fluid collections. The ventricles are not enlarged or shifted and there is no blo od within the ventricular system nor within the basal cisterns. IMPRESSION: No acute intracranial findings on this noninfused CT scan of the brain. Mucosal thickening noted in the left maxillary sinus, not previously present. Dense bone lesion again noted in the right frontoethmoidal recess measuring approximately 1.6 x 1.4 c m. This is most probably an osteoma. RADIATION DOSE DELIVERED: 1,051.93mGy.cm Total DLP DATA REPOSITORY: All CT scans at this facility are submitted to the National Radiology Data Registry (NRDR) Dose Index Registry (DIR) with the [employer] ([employer]). RADIATION OPTIMIZATION: All CT scans at this facility use at least one of these dose optimization te chniques: automated exposure control; mA and/or kV adjustment per patient size (includes targeted exa ms where dose is matched to clinical indication); or iterative reconstruction.
--- NOTE | 2021-05-20 11:45 | W.DIABETESNO ---
Date of service: 05/20/21 Time of Service: 11:49 Diabetes Note NOTE: Assessment: Mr. Hathaway has variable PO intake on a consistent CHO diet. His weight has now stablized from his initial loss. His blood sugars are not at target. He is getting aspart q 6. He has a cellulitis on his heel. Nutrition Diagnosis: Increased nutrient requirements related to cellulitis. Intervention: Will offer high protein, carbohydrate controlled nutritional supplements to help increase his protein intake. Would consider changing Aspart to AC as he is eating three meals per day. Would also consider adding a basal insulin as his blood sugars are not at target and he has healing to be done. Monitoring and Evaluation: Will continue to monitor blood sugars and nutritional status. Will evaluate nutrition care plan ongoing and adjust as needed. Time Spent in Nutritional Counseling and Treatment: 0
[2021-05-20 12:28] LABS: Lactate 1.4 mmol/L (0.6-1.4)
[2021-05-20] MEDS: Benzonatate 100 MG CAP PO (14:14)
--- NOTE | 2021-05-20 14:44 | W.PULMCC ---
General Date of Service Date of service: 05/20/21 Time of Service: 09:00 Reason for Admission to ICU: Hypoxic, sepsis Assessment and Plan Assessment and plan (1) Elevated CK: Status: Acute (2) Hyperglycemia: Status: Acute (3) Respiratory failure with hypoxia: Status: Acute (4) Pneumonia due to COVID-19 virus: Status: Acute (5) Cellulitis: Status: Acute (6) Altered mental status: Status: Acute Assessment and plan: This is a 60 yo man who was initially admitted to the ICU for COVID pneumonia and did improve resulting in a transfer to the floor. He did develop a cellulitis and was found to be acutely obtunded and requiring more oxygen and so was transferred back to the ICU. He is cumulatively positive 4 L and his O2 needs improve significantly with positive pressure. I suspect he has some volume overload and could be encephalopathic due to his cellulitis. Recommendations Pulmonary: Hypoxic Respiratory Failure - sat goal >90% - prn albuterol HFA - CPAP tonight - try to wean to nasal cannula today - proning/side sleeping as much as possible - Acapella and incentive spirometry - ambulation as tolerated - out of bed to chair Cardiac: No acute concerns Renal: Elevated CK - no rhabdo given lack of renal impairment - would not recommend any further fluids - negative daily fluid balance I&O: Intake & Output 05/17/21 05/18/21 05/19/21 05/20/21 23:59 23:59 23:59 23:59 Intake Total 1700.5 / 1700.5 755 / 755 600 / 600 2056.667 / 2056.667 Output Total 845 / 845 1500 / 1500 1275 / 1275 Balance 855.5 / 855.5 -745 / -745 600 / 600 781.667 / 781.667 Weight 107.6 kg 113.2 kg Daily Fluid Goal:: negative GI Nutrition: PO diet once safely able to eat Date of Last Bowel Movement: 05/20/21 Infectious Disease: COVID-19 - decadron, barcitinib, remdesivir - low likelihood for concomitant bacterial pneumonia - no need to continue daily monitoring of inflammatory markers - this can be changed to twice a week and prn given the decline in markers Cellulitis - agree with cefepime and vanc for now Hematologic: No acute concerns Neurologic: Metabolic encephalopathy - will check TSH - likely due to sepsis from cellulitis - ABG fine - head CT clear - if not improving may need to consider LP/EEG - reassess this need tomorrow Endocrine: Hyperglycemia - SSI - glucose goal 140-180 Prophylaxis: Protonix and on Eliquis Code Status: Resuscitation Status Full Code Subjective Critical and life-threatening events over the past 24 hours: Judd made it out of the ICU as his COVID was improving but was transferred back due to obtundation thought to be due to sepsis from a LLL cellulitis. He is receiving vancomycin and cefepime for this. On my assessment he is minimally responsive to physical stimuli. He had a CT completed today that finds no intracranial abnormality, but did find some mucosal thickening in the left maxillary sinus. Exam Const General: no acute distress Nutritional Appearance: well nourished [place] Head: normocephalic Ears: external ears normal and no periauricular adenopathy General nose exam: nasal mucous membranes and turbinates normal Mouth: oropharynx normal and moist mucous membranes Teeth and gingiva: dentition normal Eyes General: appearance normal, both eyes and all related structures Pupils: PERRL Neck Neck: normal visual inspection and no lymphadenopathy Chest Chest: normal inspection of the chest Resp Effort & Inspection: normal respiratory effort Auscultation: clear to auscultation bilaterally, rales bilaterally at the base, no rhonchi and no wheezes Cardio Rate: regular rate Rhythm: regular rhythm Heart Sounds: S1 normal, S2 normal and no murmurs Pulses: radial pulses present bilaterally GI Inspection: normal to inspection Palpation: soft Skin General skin exam: no rashes or lesions noted Neuro General: patient alert, patient awake and patient oriented x3 Extrem General: no clubbing, cyanosis or edema Psych Mental Status: mental status grossly abnormal Most Recent VS/Results Last Vital Signs Temp 37.7 C H 05/20/21 08:50 Pulse 94 H 05/20/21 08:50 Resp 25 H 05/20/21 12:40 BP 134/72 05/20/21 08:50 Pulse Ox 91 L 05/20/21 12:40 Laboratory Results - last 24 hr 05/20/21 05/20/21 05/20/21 06:55 06:55 06:55 WBC 16.71 H RBC 5.51 Hgb 16.5 Hct 51.8 H MCV 94.0 MCH 29.9 MCHC 31.9 L RDW 13.5 Plt Count 297 MPV 11.1 H Immature Gran % 0.0 Neutrophils % 90.0 Band Neutrophils % 2 Lymphocytes % 4.0 Atypical Lymphs % 2 Monocytes % 2.0 Eosinophils % 0.0 Basophils % 0.0 Nucleated RBC % 0 Absolute Neutrophils 15.37 H Absolute Lymphocytes 1.00 L Absolute Monocytes 0.33 Absolute Eosinophils 0.00 Absolute Basophils 0.00 RBC Morphology Normal D-Dimer 960 H VBG Lactate Sodium 138 Potassium 4.4 Chloride 103 Carbon Dioxide 28.0 Anion Gap 7.0 BUN 23 H Creatinine 1.2 Estimated GFR/1.73 m2 >= 60.00 Glucose 185 H Calcium 9.1 C-Reactive Protein 15.71 H 05/20/21 05/20/21 06:55 12:15 WBC RBC Hgb Hct MCV MCH MCHC RDW Plt Count MPV Immature Gran % Neutrophils % Band Neutrophils % Lymphocytes % Atypical Lymphs % Monocytes % Eosinophils % Basophils % Nucleated RBC % Absolute Neutrophils Absolute Lymphocytes Absolute Monocytes Absolute Eosinophils Absolute Basophils RBC Morphology D-Dimer VBG Lactate 4.9 H* 1.4 Sodium Potassium Chloride Carbon Dioxide Anion Gap BUN Creatinine Estimated GFR/1.73 m2 Glucose Calcium C-Reactive Protein Review of Systems Unobtainable due to mental status Time spent with patient Time spent in Critical Care: 40 Time spent in Critical care included: Coordination of care, Chart review, Documenting critically ill care, Time at immediate bedside and Discussing critically ill care with other medical staff
--- NOTE | 2021-05-20 15:29 | W.PM.PROGNOT ---
Date of Service Date of service: 05/20/21 Time of Service: 15:30 Assessment and Plan Assessment and plan (1) Pneumonia due to COVID-19 virus: Status: Acute Assessment and plan: Now out of the ICU Continue remdesivir, dexamethasone, baricitinib, vitamin C and D supplementation, zinc, antitussives, cough/mucolytics, IS/acapella. Inflammatory markers, d-dimer and crp, are elevated in the background of sepsis. Encourage proning. Give lasix 20 mg IV now and daily. (2) Hypoxia: Status: Acute Assessment and plan: As above (3) Rhabdomyolysis: Status: Resolved Assessment and plan: Improved. Off IVF and s/p lasix. Resolved. Resumed statin Monitor kidney function; currently normal. (4) Ambulatory dysfunction: Status: Resolved Assessment and plan: Doing really well, independent in the room and discharged from PT. (5) Blister of left foot: Status: Acute Assessment and plan: Discussed case with podiatry: recommend mepilex and heel protector. (6) DVT prophylaxis: Status: Acute Assessment and plan: On therapeutic eliquis for Afib (7) Discharge planning issues: Status: Acute Assessment and plan: Full code as per my discussion with the patient. Transfer out of ICU. (8) Cellulitis of left ankle: Status: Acute Assessment and plan: WBC count and CRP both increased. Lactate increased to 2.4 (1.7 on 05/13). No fever. Likely causing metabolic acidosis with ABG showing compensatory resp alkalosis. Cefepime and vancomycin initiated. Blood cultures obtained and pending. (9) Sepsis: Status: Acute Assessment and plan: Metabolic acidosis with overcompensated respiratory alkalosis. Now lethargic/obtunded but with some improvement in level of consciousness today. Source could be cellulitis of left ankle. Concerned with bacterial PNA in background of COVID PNA, but CXR showed overall improvement. Cefepime and Vancomycin initiated. Now in ICU CT head w/o any acute process noted. Subjective Subjective Patient reports: afebrile; denies diarrhea and vomiting Interval history since last seen: Modestly more arousable with stimuli. Repositioning himself in bed and also helped in transferring from bed to stretcher. Exam Const General: lethargic and other (Resonds wih brief head turning and/or eye openng with stimuli. ) Nutritional Appearance: overweight Resp Effort & Inspection: normal respiratory effort and other (BiPAP in place. ) Auscultation: diminished lung sounds Cardio Rate: tachycardic Rhythm: regular rhythm GI Palpation: soft and nontender (No grimace or guarding with palpation. ) Skin General skin exam: erythema (left anterior ankle. No purulent lesions.) Extrem General: no pedal edema Objective Last Vital Signs Temp 37.7 C H 05/20/21 08:50 Pulse 94 H 05/20/21 08:50 Resp 25 H 05/20/21 12:40 BP 134/72 05/20/21 08:50 Pulse Ox 91 L 05/20/21 12:40 Laboratory Results - last 24 hr 05/20/21 05/20/21 05/20/21 06:55 06:55 06:55 WBC 16.71 H RBC 5.51 Hgb 16.5 Hct 51.8 H MCV 94.0 MCH 29.9 MCHC 31.9 L RDW 13.5 Plt Count 297 MPV 11.1 H Immature Gran % 0.0 Neutrophils % 90.0 Band Neutrophils % 2 Lymphocytes % 4.0 Atypical Lymphs % 2 Monocytes % 2.0 Eosinophils % 0.0 Basophils % 0.0 Nucleated RBC % 0 Absolute Neutrophils 15.37 H Absolute Lymphocytes 1.00 L Absolute Monocytes 0.33 Absolute Eosinophils 0.00 Absolute Basophils 0.00 RBC Morphology Normal D-Dimer 960 H VBG Lactate Sodium 138 Potassium 4.4 Chloride 103 Carbon Dioxide 28.0 Anion Gap 7.0 BUN 23 H Creatinine 1.2 Estimated GFR/1.73 m2 >= 60.00 Glucose 185 H Calcium 9.1 C-Reactive Protein 15.71 H 05/20/21 05/20/21 06:55 12:15 WBC RBC Hgb Hct MCV MCH MCHC RDW Plt Count MPV Immature Gran % Neutrophils % Band Neutrophils % Lymphocytes % Atypical Lymphs % Monocytes % Eosinophils % Basophils % Nucleated RBC % Absolute Neutrophils Absolute Lymphocytes Absolute Monocytes Absolute Eosinophils Absolute Basophils RBC Morphology D-Dimer VBG Lactate 4.9 H* 1.4 Sodium Potassium Chloride Carbon Dioxide Anion Gap BUN Creatinine Estimated GFR/1.73 m2 Glucose Calcium C-Reactive Protein
[2021-05-20 18:38] LABS: TSH (W/Ref FT4) 1.67 uIU/mL (0.36-3.74)
[2021-05-20] MEDS: Pantoprazole 40 MG VIAL IVP (22:23)
[2021-05-20] MEDS: Ketorolac 30 MG/ML VIAL IVP (23:32)
[2021-05-21] VITALS (68 sets, daily range): BP systolic 84–126; BP diastolic 56–80; PULSE 59–114; RESP 12–34; TEMP 30–38.6; O2SAT 91–97
[2021-05-21] MEDS: CEFEPIME 2 GM in Normal Saline 100 ML IVPB ×3 (00:30→16:59)
[2021-05-21] MEDS: ACETAMINOPHEN 1,000 MG/100 ML BTL 400 MG IVPB (01:30)
[2021-05-21 07:05] LABS: HCT 45.5 % (40.0-50.0); HGB 14.7 g/dL (13.5-17.5); MCH 30.1 pg (27.0-33.0); MCHC 32.3 % (32.0-36.0); MPV 11.9 fL (8.0-11.0); Nucleated RBC 0 %; Platelet Count 257 10^3/uL (130-400); RBC 4.89 10^6/uL (4.36-5.78); RDW 13.5 % (11.8-14.1); RDW-SD 46.4 fL; WBC 17.91 10^3/uL (4.4-10.8)
--- NOTE | 2021-05-21 07:15 | W.PULMCC ---
General Date of Service Date of service: 05/21/21 Time of Service: 07:15 Reason for Admission to ICU: Altered mental status Assessment and Plan Assessment and plan (1) Elevated CK: Status: Acute (2) Hyperglycemia: Status: Acute (3) Respiratory failure with hypoxia: Status: Acute (4) Pneumonia due to COVID-19 virus: Status: Acute (5) Cellulitis: Status: Acute (6) Aspiration into airway: Status: Acute (7) Altered mental status: Status: Acute Assessment and plan: This is a 60 yo man who was initially admitted to the ICU for COVID pneumonia and did improve resulting in a transfer to the floor. He did develop a cellulitis and was found to be acutely obtunded and requiring more oxygen and so was transferred back to the ICU. He could have potentially had an aspiration event after learning more about the events that occurred that could have resulted in the AMS and hypoxia, particularly since he improved quickly. His fever also broke last night which helped. He is doing well and seems to be close to where he was on the floor. Recommendations Pulmonary: Hypoxic Respiratory Failure - sat goal >90% - prn albuterol HFA - CPAP tonight - try to wean to nasal cannula today - proning/side sleeping as much as possible - Acapella and incentive spirometry - ambulation as tolerated - out of bed to chair Aspiration - can engage SENIOR FACILITIES MANAGER if they are not involved already Cardiac: No acute concerns Renal: Elevated CK - no rhabdo given lack of renal impairment - would not recommend any further fluids - negative daily fluid balance I&O: Intake & Output 05/18/21 05/19/21 05/20/21 05/21/21 23:59 23:59 23:59 23:59 Intake Total 755 / 755 600 / 600 2706.667 / 2706.667 450 / 450 Output Total 1500 / 1500 1700 / 1700 400 / 400 Balance -745 / -745 600 / 600 1006.667 / 1006.667 50 / 50 Weight 107.6 kg 113.2 kg Daily Fluid Goal:: Negative GI Nutrition: OK for PO diet Date of Last Bowel Movement: 05/20/21 Infectious Disease: COVID-19 - decadron, barcitinib, remdesivir - low likelihood for concomitant bacterial pneumonia - no need to continue daily monitoring of inflammatory markers - this can be changed to twice a week and prn given the decline in markers Cellulitis - agree with cefepime and vanc for now Hematologic: No acute concerns Neurologic: Metabolic encephalopathy, improved - TSH ok - likely due to sepsis from cellulitis and possible aspiration - head CT clear Endocrine: Hyperglycemia - SSI - glucose goal 140-180 Lines: PIV - ok for midline of PICC Prophylaxis: Protonix and Eliquis Code Status: Resuscitation Status Full Code Subjective Critical and life-threatening events over the past 24 hours: Judd is much improved today. He is awake and conversant. He is doing well on high flow with a running and is asking for coffee and breakfast. He does not remember much of what happened yesterday but states he is feeling fine. Exam Const General: no acute distress Nutritional Appearance: well nourished [facility] Head: normocephalic Ears: external ears normal and no periauricular adenopathy General nose exam: nasal mucous membranes and turbinates normal Mouth: oropharynx normal and moist mucous membranes Teeth and gingiva: dentition normal Eyes General: appearance normal, both eyes and all related structures Pupils: PERRL Neck Neck: normal visual inspection and no lymphadenopathy Chest Chest: normal inspection of the chest Resp Effort & Inspection: normal respiratory effort Auscultation: clear to auscultation bilaterally, rales bilaterally at the base, no rhonchi and no wheezes Cardio Rate: regular rate Rhythm: regular rhythm Heart Sounds: S1 normal, S2 normal and no murmurs Pulses: radial pulses present bilaterally GI Inspection: normal to inspection Palpation: soft Skin General skin exam: no rashes or lesions noted Neuro General: patient alert, patient awake and patient oriented x3 Extrem General: no clubbing, cyanosis or edema Psych Mental Status: mental status grossly abnormal Most Recent VS/Results Last Vital Signs Temp 36.4 C L 05/21/21 04:00 Pulse 91 H 05/21/21 04:00 Resp 28 H 05/21/21 04:00 BP 97/66 L 05/21/21 04:00 Pulse Ox 94 05/21/21 04:00 Laboratory Results - last 24 hr 05/20/21 05/20/21 05/20/21 06:55 06:55 06:55 WBC 16.71 H RBC 5.51 Hgb 16.5 Hct 51.8 H MCV 94.0 MCH 29.9 MCHC 31.9 L RDW 13.5 Plt Count 297 MPV 11.1 H Immature Gran % 0.0 Neutrophils % 90.0 Band Neutrophils % 2 Lymphocytes % 4.0 Atypical Lymphs % 2 Monocytes % 2.0 Eosinophils % 0.0 Basophils % 0.0 Nucleated RBC % 0 Absolute Neutrophils 15.37 H Absolute Lymphocytes 1.00 L Absolute Monocytes 0.33 Absolute Eosinophils 0.00 Absolute Basophils 0.00 RBC Morphology Normal D-Dimer 960 H VBG Lactate Sodium 138 Potassium 4.4 Chloride 103 Carbon Dioxide 28.0 Anion Gap 7.0 BUN 23 H Creatinine 1.2 Estimated GFR/1.73 m2 >= 60.00 Glucose 185 H Calcium 9.1 C-Reactive Protein 15.71 H TSH 05/20/21 05/20/21 05/20/21 06:55 12:15 12:15 WBC RBC Hgb Hct MCV MCH MCHC RDW Plt Count MPV Immature Gran % Neutrophils % Band Neutrophils % Lymphocytes % Atypical Lymphs % Monocytes % Eosinophils % Basophils % Nucleated RBC % Absolute Neutrophils Absolute Lymphocytes Absolute Monocytes Absolute Eosinophils Absolute Basophils RBC Morphology D-Dimer VBG Lactate 4.9 H* 1.4 Sodium Potassium Chloride Carbon Dioxide Anion Gap BUN Creatinine Estimated GFR/1.73 m2 Glucose Calcium C-Reactive Protein TSH 1.67 Review of Systems All systems reviewed & are unremarkable except as noted in HPI and below Time spent with patient Time spent in Critical Care: 35 Time spent in Critical care included: Coordination of care, Chart review, Documenting critically ill care, Time at immediate bedside and Discussing critically ill care with other medical staff
[2021-05-21 07:20] LABS: C-Reactive Protein 24.69 mg/dL (0.0-0.3)
[2021-05-21 07:36] LABS: Absolute Lymphocyte Count 1.07 10^3/uL (1.2-3.4); Absolute Monocyte Count 1.07 10^3/uL (0.1-0.8); Absolute Neutrophil Count 15.76 10^3/uL (1.2-6.7); Atypical Lymphocytes % 1; Bands % 5; Diff Comment Manual Differential; RBC Morphology Normal
[2021-05-21 07:40] LABS: ALT 19 U/L (16-63); AST 23 U/L (15-37); Albumin 2.1 g/dL (3.4-5.0); Alkaline Phosphatase 59 U/L (46-116); BUN 28 mg/dL (7-18); Bilirubin, Total 0.7 mg/dL (0.2-1.0); Calcium 8.8 mg/dL (8.5-10.1); Chloride 105 mmol/L (98-107); Glucose 204 mg/dL (74-106); Potassium 3.9 mmol/L (3.5-5.1); Sodium 139 mmol/L (136-145)
[2021-05-21 07:41] LABS: D-Dimer 1222 ng/mlFEU (<500)
--- NOTE | 2021-05-21 08:56 | PDOC.CMPRO ---
- If Service Date Differs Date of service: 05/21/21 Time of Service: 08:56 Care Management Progress Note S/O: Judd remains in the ICU. His cellulites is being closely monitored and his mental status has returned to baseline. He looks and feels better today. Per nursing, his FBS was 206 this morning and he was shaky. Overall he is feeling much better and able to take all his normal meds. CM will continue to follow. A: 60 year old male admitted to [facility] on 05/13/21 for Covid Pneumonia with hypoxia. P: Anticipate Judd will return home when medically cleared by provider. He will follow up with his PCP and discharge plan of care. Undetermined if Judd will require new H services and/or new home O2. His RAIL CAR REPAIRMAN mattress spring encaser is Nessa Tapia and [place] [facility] mattress spring encaser is Alexandra ([phone]), both have requested notification prior to discharge. Judd will likely transport home via EMS due to his Covid precautions. CM will continue to follow.
[2021-05-21] MEDS: Dexamethasone 4 MG TAB 6 MG PO (09:10)
[2021-05-21] MEDS: Benzonatate 100 MG CAP PO ×3 (09:10→21:44)
[2021-05-21] MEDS: Lisinopril 5 MG TAB PO (09:10)
[2021-05-21] MEDS: Apixaban 5 MG TAB PO ×2 (09:10→21:45)
[2021-05-21] MEDS: Ascorbic Acid 500 MG TAB 1000 MG PO ×2 (09:11→21:44)
[2021-05-21] MEDS: guaiFENesin 600 MG TABCR PO ×2 (09:12→21:43)
[2021-05-21] MEDS: Zinc Sulfate 220 MG TAB PO (09:12)
[2021-05-21] MEDS: Cholecalciferol (Vitamin D3) 1,000 UNIT TAB 2000 UNITS PO (09:12)
[2021-05-21] MEDS: Calcium Carbonate *TUMS* 500 MG CHEW PO ×3 (09:12→21:44)
[2021-05-21] MEDS: Furosemide 20 MG/2 ML VIAL IVP (09:14)
[2021-05-21] MEDS: Normal Saline Flush 10 ML SYR IVP ×3 (09:14→21:52)
--- NOTE | 2021-05-21 09:31 | OT.INNT ---
Date of service: 05/21/21 Time of Service: 09:31 Occupational Therapy Notes 05/21/21 Pt is considered on hold at this time. OT will discharge OT order and when MD feels pt is appropriate another order will be sent for services. Ellie Rodriguez OTR/[facility]
[2021-05-21] MEDS: Nystatin 500000 UNITS/5 ML SUSP 5ML CUP PO ×3 (09:32→21:45)
[2021-05-21] MEDS: Insulin Aspart 300 UNITS/3 ML PEN SC ×4 (09:32→22:00)
[2021-05-21 11:44] LABS: Vancomycin, Trough 14.1 ug/mL (10.0-20.0)
--- NOTE | 2021-05-21 12:30 | DI.RAD_ITS ---
Exam(s) XR PORTABLE CHEST AP POST LINE EXAM: XR PORTABLE CHEST AP POST LINE CLINICAL HISTORY: Placement of central line TECHNIQUE: 2D digital imaging was performed of the chest. Images were obtained. PA and lateral v iews were obtained. COMPARISON: CR,XR XR PORTABLE CHEST AP from 05/19/2021 CR,XR XR PORTABLE CHEST AP from 05/19/2021 FINDINGS: MEDIASTINUM: Normal. HEART: Normal. PULMONARY VASCULATURE: Normal. LUNGS: There has been slight worsening of the pulmonary infiltrates since 05/19/2021. This predomina ntly affects the lower lobes. PLEURAL SPACE: No pleural effusion or pneumothorax. BONE:Within normal limits for the patient's age. OTHER FINDINGS:There has been interval placement of a right PICC line. The tip of the catheter is se en at the junction of the superior vena cava and right atrium. IMPRESSION: 1. Tip of the PICC line is at the cavoatrial junction. 2. Slight worsening of the pulmonary infiltrates since 05/19/2021. DATA REPOSITORY: RADIATION DOSE DELIVERED:
[2021-05-21] MEDS: Normal Saline 500 ML 50 ML IV (13:55)
--- NOTE | 2021-05-21 14:09 | NUR.NOTE ---
This play writer attempted to sit patient up bedside to eat a late lunch. Patient attempted and failed to sit at edge of bed due to weakness. hover mat placed under patient by this play writer and RN and patient is safely boosted back into the bed and put into a chair position to eat lunch. Nursing Note:
[2021-05-21] MEDS: Nystatin POWDER 60 GM JAR TP ×2 (14:17→20:30)
[2021-05-21] MEDS: VANCOMYCIN/WATER (PEG) 1.25 GM/250 ML BAG IVPB (14:57)
--- NOTE | 2021-05-21 15:25 | W.PM.PROGNOT ---
Date of Service Date of service: 05/21/21 Time of Service: 15:25 Assessment and Plan Assessment and plan (1) Pneumonia due to COVID-19 virus: Status: Acute Assessment and plan: Continue remdesivir, dexamethasone, baricitinib, vitamin C and D supplementation, zinc, antitussives, cough/mucolytics, IS/acapella. Inflammatory markers, d-dimer and crp, are elevated in the background of sepsis. Encourage proning but hasn't been doing so; side to side is next best practice. Lasix 20mg daily. . (2) Hypoxia: Status: Acute Assessment and plan: As above (3) Rhabdomyolysis: Status: Resolved Assessment and plan: Improved. Off IVF and s/p lasix. Resolved. Resumed statin Monitor kidney function; currently normal. (4) Ambulatory dysfunction: Status: Resolved Assessment and plan: Doing really well, independent in the room and discharged from PT. (5) Blister of left foot: Status: Acute Assessment and plan: Discussed case with podiatry: recommend mepilex and heel protector. (6) DVT prophylaxis: Status: Acute Assessment and plan: On therapeutic eliquis for Afib (7) Discharge planning issues: Status: Acute Assessment and plan: Full code as per my discussion with the patient. Transfer out of ICU. (8) Cellulitis of left ankle: Status: Acute Assessment and plan: WBC count and CRP both increased. Lactate increased to 2.4 (1.7 on 05/13). No fever. Likely causing metabolic acidosis with ABG showing compensatory resp alkalosis. Cefepime and vancomycin initiated. Blood cultures obtained and pending. (9) Sepsis: Status: Acute Assessment and plan: Metabolic acidosis with overcompensated respiratory alkalosis. No longer obtunded. Returned to baseline level of consciousness. Source could be cellulitis of left ankle. Concerned with bacterial PNA in background of COVID PNA, but CXR showed overall improvement. Cefepime and Vancomycin initiated. Now in ICU CT head w/o any acute process noted. Subjective Subjective Patient reports: no new complaints, feels better and afebrile; denies nausea and vomiting Interval history since last seen: Pt is now alert / at baseline level of consciousness. Worried about getting his rent check to his landlord. Exam Const General: cooperative and no acute distress Nutritional Appearance: overweight Orientation: alert, oriented to person and oriented to place Resp Effort & Inspection: normal respiratory effort Auscultation: clear to auscultation bilaterally and diminished lung sounds Cardio Rate: regular rate Rhythm: regular rhythm GI Palpation: soft and nontender (No grimace or guarding with palpation. ) Skin General skin exam: erythema (left anterior ankle. No purulent lesions.) Extrem General: no pedal edema Objective Last Vital Signs Temp 36.6 C 05/21/21 09:00 Pulse 99 H 05/21/21 14:47 Resp 31 H 05/21/21 15:00 BP 114/62 05/21/21 14:47 Pulse Ox 95 05/21/21 15:00 Laboratory Results - last 24 hr 05/20/21 05/21/21 05/21/21 12:15 06:25 06:25 WBC RBC Hgb Hct MCV MCH MCHC RDW Plt Count MPV Immature Gran % Neutrophils % Band Neutrophils % Lymphocytes % Atypical Lymphs % Monocytes % Eosinophils % Basophils % Nucleated RBC % Absolute Neutrophils Absolute Lymphocytes Absolute Monocytes Absolute Eosinophils Absolute Basophils RBC Morphology D-Dimer 1222 H Sodium Potassium Chloride Carbon Dioxide Anion Gap BUN Creatinine Estimated GFR/1.73 m2 Glucose Calcium Total Bilirubin AST ALT Alkaline Phosphatase C-Reactive Protein 24.69 H Total Protein Albumin TSH 1.67 Vancomycin Trough 05/21/21 05/21/21 05/21/21 06:25 06:25 11:15 WBC 17.91 H RBC 4.89 Hgb 14.7 Hct 45.5 MCV 93.0 MCH 30.1 MCHC 32.3 RDW 13.5 Plt Count 257 MPV 11.9 H Immature Gran % 0.0 Neutrophils % 83.0 Band Neutrophils % 5 Lymphocytes % 5.0 Atypical Lymphs % 1 Monocytes % 6.0 Eosinophils % 0.0 Basophils % 0.0 Nucleated RBC % 0 Absolute Neutrophils 15.76 H Absolute Lymphocytes 1.07 L Absolute Monocytes 1.07 H Absolute Eosinophils 0.00 Absolute Basophils 0.00 RBC Morphology Normal D-Dimer Sodium 139 Potassium 3.9 Chloride 105 Carbon Dioxide 24.0 Anion Gap 10.0 BUN 28 H Creatinine 1.0 Estimated GFR/1.73 m2 >= 60.00 Glucose 204 H Calcium 8.8 Total Bilirubin 0.7 AST 23 ALT 19 Alkaline Phosphatase 59 C-Reactive Protein Total Protein 7.0 Albumin 2.1 L TSH Vancomycin Trough 14.1
[2021-05-21] MEDS: rOPINIRole 0.5 MG TAB 1 MG PO (16:59)
[2021-05-21] MEDS: Fluticasone NASAL SPRAY 16 GM BTL NS (20:00)
[2021-05-21] MEDS: LORazepam 0.5 MG TAB PO (21:43)
[2021-05-21] MEDS: Melatonin 3 MG TAB PO (21:44)
[2021-05-21] MEDS: Divalproex Sodium 500 MG TAB.ER.24H 2000 MG PO (21:44)
[2021-05-21] MEDS: Pantoprazole 40 MG VIAL IVP (21:45)
[2021-05-21] MEDS: Atorvastatin 10 MG TAB PO (21:45)
[2021-05-21] MEDS: Insulin Glargine 300 UNITS/3 ML PEN 10 UNITS SC (21:51)
[2021-05-22] VITALS (50 sets, daily range): BP systolic 88–108; BP diastolic 49–75; PULSE 54–98; RESP 14–27; TEMP 31–37; O2SAT 88–95
[2021-05-22] MEDS: CEFEPIME 2 GM in Normal Saline 100 ML IVPB ×4 (00:13→23:12)
[2021-05-22] MEDS: VANCOMYCIN/WATER (PEG) 1.25 GM/250 ML BAG IVPB ×3 (00:14→20:40)
[2021-05-22] MEDS: Nystatin 500000 UNITS/5 ML SUSP 5ML CUP PO ×5 (05:45→20:46)
[2021-05-22 07:14] LABS: Abs Immature Grans 0.41 10^3/uL (0.0-0.06); Absolute Basophil Count 0.04 10^3/uL (0.0-0.2); Absolute Lymphocyte Count 1.36 10^3/uL (1.2-3.4); Absolute Monocyte Count 0.91 10^3/uL (0.1-0.8); Absolute Neutrophil Count 16.98 10^3/uL (1.2-6.7); Basophils % 0.2; HCT 42.3 % (40.0-50.0); HGB 13.8 g/dL (13.5-17.5); Immature Grans % 2.1; Lymphocytes % 6.9; MCH 29.6 pg (27.0-33.0); MCHC 32.6 % (32.0-36.0); MCV 90.6 fL (80-95); MPV 12.6 fL (8.0-11.0); Monocytes % 4.6; Neutrophils % 86.2; Nucleated RBC 0 %; Platelet Count 291 10^3/uL (130-400); RBC 4.67 10^6/uL (4.36-5.78); RDW 13.2 % (11.8-14.1); RDW-SD 43.8 fL
[2021-05-22 07:25] LABS: Anion Gap 8.5 mmol/L (3-11); BUN 28 mg/dL (7-18); CO2 24.5 mmol/L (21.0-32.0); CREATININE 0.8 mg/dL (0.70-1.30); Calcium 8.7 mg/dL (8.5-10.1); Chloride 100 mmol/L (98-107); Glucose 240 mg/dL (74-106); Sodium 133 mmol/L (136-145)
[2021-05-22 07:29] LABS: C-Reactive Protein 22.96 mg/dL (0.0-0.3)
[2021-05-22 07:56] LABS: D-Dimer 1182 ng/mlFEU (<500)
[2021-05-22] MEDS: Benzonatate 100 MG CAP PO ×3 (08:07→20:38)
[2021-05-22] MEDS: Normal Saline Flush 10 ML SYR IVP ×3 (08:07→20:39)
[2021-05-22] MEDS: Furosemide 20 MG/2 ML VIAL IVP (08:07)
[2021-05-22] MEDS: Zinc Sulfate 220 MG TAB PO (08:08)
[2021-05-22] MEDS: guaiFENesin 600 MG TABCR PO ×2 (08:09→20:39)
[2021-05-22] MEDS: Ascorbic Acid 500 MG TAB 1000 MG PO ×2 (08:09→20:37)
[2021-05-22] MEDS: Lisinopril 5 MG TAB PO (08:09)
[2021-05-22] MEDS: Apixaban 5 MG TAB PO ×2 (08:09→20:36)
[2021-05-22] MEDS: Calcium Carbonate *TUMS* 500 MG CHEW PO ×3 (08:09→20:38)
[2021-05-22] MEDS: Cholecalciferol (Vitamin D3) 1,000 UNIT TAB 2000 UNITS PO (08:09)
[2021-05-22] MEDS: Fluticasone NASAL SPRAY 16 GM BTL NS ×2 (08:11→20:38)
[2021-05-22] MEDS: Dexamethasone 4 MG TAB 6 MG PO (08:12)
[2021-05-22] MEDS: Insulin Aspart 300 UNITS/3 ML PEN SC ×4 (08:12→21:00)
[2021-05-22] MEDS: Nystatin POWDER 60 GM JAR TP ×3 (08:13→20:39)
--- NOTE | 2021-05-22 08:40 | CMPROGNOTE_ITS ---
- If Service Date Differs Date of service: 05/22/21 Time of Service: 08:40 Care Management Progress Note S/O: Anticipate Judd will transition to med surg status today, as he is doing much better. He is receiving IV medications. His mentation is back to baseline. His Fasting BS continues to be elevated. Judd shared that he is concerned with his rent payment that was Due 05/08/21 and would like a call from his care program resident in the community. CM left a message for Alexandra at the [place] [facility]. CM will continue to follow. A: 60 year old male admitted to [facility] on 05/13/21 for Covid Pneumonia with hypoxia. P: Anticipate Judd will return home when medically cleared by provider. He will follow up with his PCP and discharge plan of care. Undetermined if Judd will require new CHH services and/or new home O2. His THERMAL TECHNICIAN corrections caseworker is Nessa Tapia and [place] [facility] corrections caseworker is Alexandra ([phone]), both have requested notification prior to discharge. Judd will likely transport home via EMS due to his Covid precautions. CM will continue to follow.
--- NOTE | 2021-05-22 16:10 | W.PM.PROGNOT ---
Date of Service Date of service: 05/22/21 Time of Service: 16:10 Assessment and Plan Assessment and plan (1) Pneumonia due to COVID-19 virus: Status: Acute Assessment and plan: Continue remdesivir, dexamethasone, baricitinib, vitamin C and D supplementation, zinc, antitussives, cough/mucolytics, IS/acapella. Inflammatory markers, d-dimer and crp, elevated in the background of sepsis but sepsis now resolving and markers are modestly down. Lasix 20mg daily. . (2) Hypoxia: Status: Acute Assessment and plan: As above (3) Rhabdomyolysis: Status: Resolved Assessment and plan: Improved. Off IVF and s/p lasix. Resolved. Resumed statin Monitor kidney function; currently normal. (4) Ambulatory dysfunction: Status: Resolved Assessment and plan: Doing really well, independent in the room and discharged from PT. (5) Blister of left foot: Status: Acute Assessment and plan: Discussed case with podiatry: recommend mepilex and heel protector. (6) DVT prophylaxis: Status: Acute Assessment and plan: On therapeutic eliquis for Afib (7) Discharge planning issues: Status: Acute Assessment and plan: Full code as per my discussion with the patient. Transfer out of ICU. (8) Cellulitis of left ankle: Status: Acute Assessment and plan: WBC count and CRP both increased. Lactate increased to 2.4 (1.7 on 05/13). No fever. Likely causing metabolic acidosis with ABG showing compensatory resp alkalosis. Cefepime and vancomycin initiated. Blood cultures obtained and pending. (9) Sepsis: Status: Acute Assessment and plan: Metabolic acidosis with overcompensated respiratory alkalosis. No longer obtunded. Returned to baseline level of consciousness. Source could be cellulitis of left ankle. Concerned with bacterial PNA in background of COVID PNA, but CXR showed overall improvement. Cefepime and Vancomycin initiated. Now in ICU CT head w/o any acute process noted. Subjective Subjective Patient reports: no new complaints, feels better, tolerating a regular diet and afebrile; denies diarrhea Interval history since last seen: Pt is now alert / at baseline level of consciousness. Worried about getting his rent check to his landlord. Exam Const General: cooperative and no acute distress Nutritional Appearance: overweight Orientation: alert, oriented to person and oriented to place Resp Effort & Inspection: normal respiratory effort Auscultation: clear to auscultation bilaterally and diminished lung sounds Cardio Rate: regular rate Rhythm: regular rhythm GI Palpation: soft and nontender (No grimace or guarding with palpation. ) Skin General skin exam: erythema (left anterior ankle. No purulent lesions.) Extrem General: no pedal edema Objective Last Vital Signs Temp 36.2 C L 05/22/21 11:36 Pulse 72 05/22/21 15:22 Resp 18 05/22/21 15:30 BP 96/62 L 05/22/21 15:22 Pulse Ox 93 05/22/21 15:30 Laboratory Results - last 24 hr 05/22/21 05/22/21 05/22/21 06:35 06:35 06:35 WBC RBC Hgb Hct MCV MCH MCHC RDW Plt Count MPV Immature Gran % Neutrophils % Lymphocytes % Monocytes % Eosinophils % Basophils % Nucleated RBC % Absolute Neutrophils Absolute Lymphocytes Absolute Monocytes Absolute Eosinophils Absolute Basophils D-Dimer 1182 H Sodium 133 L Potassium 4.0 Chloride 100 Carbon Dioxide 24.5 Anion Gap 8.5 BUN 28 H Creatinine 0.8 Estimated GFR/1.73 m2 >= 60.00 Glucose 240 H Calcium 8.7 C-Reactive Protein 22.96 H 05/22/21 06:35 WBC 19.70 H RBC 4.67 Hgb 13.8 Hct 42.3 MCV 90.6 MCH 29.6 MCHC 32.6 RDW 13.2 Plt Count 291 MPV 12.6 H Immature Gran % 2.1 Neutrophils % 86.2 Lymphocytes % 6.9 Monocytes % 4.6 Eosinophils % 0.0 Basophils % 0.2 Nucleated RBC % 0 Absolute Neutrophils 16.98 H Absolute Lymphocytes 1.36 Absolute Monocytes 0.91 H Absolute Eosinophils 0.00 Absolute Basophils 0.04 D-Dimer Sodium Potassium Chloride Carbon Dioxide Anion Gap BUN Creatinine Estimated GFR/1.73 m2 Glucose Calcium C-Reactive Protein
[2021-05-22] MEDS: rOPINIRole 0.5 MG TAB 1 MG PO (16:49)
[2021-05-22] MEDS: Atorvastatin 10 MG TAB PO (20:37)
[2021-05-22] MEDS: Divalproex Sodium 500 MG TAB.ER.24H 2000 MG PO (20:41)
[2021-05-22] MEDS: Pantoprazole 40 MG VIAL IVP (20:42)
[2021-05-22] MEDS: Docusate Sodium 100 MG CAP 200 MG PO (20:43)
[2021-05-22] MEDS: Senna TAB 1 TAB PO (20:46)
[2021-05-22] MEDS: Melatonin 3 MG TAB PO (20:46)
[2021-05-22] MEDS: Insulin Glargine 300 UNITS/3 ML PEN 10 UNITS SC (21:00)
[2021-05-23] VITALS (21 sets, daily range): BP systolic 92–109; BP diastolic 59–71; PULSE 51–100; RESP 13–29; TEMP 35.2–36.6; O2SAT 88–95
[2021-05-23] MEDS: VANCOMYCIN/WATER (PEG) 1.25 GM/250 ML BAG IVPB (06:42)
[2021-05-23] MEDS: Nystatin 500000 UNITS/5 ML SUSP 5ML CUP PO ×5 (06:42→23:17)
[2021-05-23] MEDS: CEFEPIME 2 GM in Normal Saline 100 ML IVPB ×3 (08:15→23:17)
[2021-05-23] MEDS: Furosemide 20 MG/2 ML VIAL IVP (08:15)
[2021-05-23] MEDS: Normal Saline Flush 10 ML SYR IVP ×4 (08:15→21:11)
[2021-05-23] MEDS: Cholecalciferol (Vitamin D3) 1,000 UNIT TAB 2000 UNITS PO (08:16)
[2021-05-23] MEDS: Benzonatate 100 MG CAP PO ×3 (08:16→21:10)
[2021-05-23] MEDS: Dexamethasone 4 MG TAB 6 MG PO (08:16)
[2021-05-23] MEDS: Zinc Sulfate 220 MG TAB PO (08:16)
[2021-05-23] MEDS: guaiFENesin 600 MG TABCR PO ×2 (08:17→21:10)
[2021-05-23] MEDS: Apixaban 5 MG TAB PO ×2 (08:17→21:10)
[2021-05-23] MEDS: Ascorbic Acid 500 MG TAB 1000 MG PO ×2 (08:17→21:10)
[2021-05-23] MEDS: Senna TAB 1 TAB PO (08:17)
[2021-05-23] MEDS: Bisacodyl 5 MG TABEC PO (08:17)
[2021-05-23] MEDS: Calcium Carbonate *TUMS* 500 MG CHEW PO ×3 (08:17→21:10)
--- NOTE | 2021-05-23 08:17 | PDOC.CMPRO ---
- If Service Date Differs Date of service: 05/23/21 Time of Service: 08:17 Care Management Progress Note S/O: Judd transitioned to med surg today, as he is doing much better. He is receiving IV medications. His mentation is back to baseline. His Fasting BS continues to be elevated. He met with a hospice educator today who recommended additional insulin coverage at . Judd connected with Alexandra from [facility] and reports that his rent is all set. CM will continue to support discharge planning needs. A: 60 year old male admitted to [facility] on 05/13/21 for Covid Pneumonia with hypoxia. P: Anticipate Judd will return home when medically cleared by provider. He will follow up with his PCP and discharge plan of care. Undetermined if Judd will require new [facility] services and/or new home O2. His [employer] TECHNICIAN correctional case records supervisor is Nessa Tapia and [place] on aging correctional case records supervisor is Alexandra ([phone]), both have requested notification prior to discharge. Judd will likely transport home via EMS due to his Covid precautions. CM will continue to follow.
[2021-05-23] MEDS: Insulin Aspart 300 UNITS/3 ML PEN SC ×4 (08:47→23:25)
[2021-05-23] MEDS: Nystatin POWDER 60 GM JAR TP ×3 (09:00→21:14)
--- NOTE | 2021-05-23 09:54 | NUR.NOTE ---
This abstract writer did nail care on patient. o2 probe taken off to soak hands in water with approval from RN. Once done, it was put back on. Nursing Note:
--- NOTE | 2021-05-23 10:16 | W.DIABETESNO ---
Date of service: 05/23/21 Time of Service: 10:16 Diabetes Note NOTE: Brief follow up note: Blood sugars still above target. Would consider adding coverage with aspart for carbohydrates at mealtime as well as increasing Lantus in 20% increments until target fasting blood sugar is achieved. Will continue to follow progress. Time Spent in Nutritional Counseling and Treatment: 0
[2021-05-23] MEDS: Fluticasone NASAL SPRAY 16 GM BTL NS ×2 (10:27→21:14)
[2021-05-23] MEDS: rOPINIRole 0.5 MG TAB 1 MG PO (16:23)
--- NOTE | 2021-05-23 16:47 | PGE_ITS ---
Date of Service Date of service: 05/23/21 Time of Service: 16:47 Assessment and Plan Assessment and plan (1) Pneumonia due to COVID-19 virus: Status: Acute Assessment and plan: Continue remdesivir, dexamethasone, baricitinib, vitamin C and D supplementation, zinc, antitussives, cough/mucolytics, IS/acapella. Inflammatory markers, d-dimer and crp, elevated in the background of sepsis but sepsis now resolving and markers are modestly down. Lasix 20mg daily. . (2) Hypoxia: Status: Acute Assessment and plan: As above (3) Rhabdomyolysis: Status: Resolved Assessment and plan: Improved. Off IVF and s/p lasix. Resolved. Resumed statin Monitor kidney function; currently normal. (4) Ambulatory dysfunction: Status: Resolved Assessment and plan: Doing really well, independent in the room and discharged from PT. (5) Blister of left foot: Status: Acute Assessment and plan: Discussed case with podiatry: recommend mepilex and heel protector. (6) DVT prophylaxis: Status: Acute Assessment and plan: On therapeutic eliquis for Afib (7) Discharge planning issues: Status: Acute Assessment and plan: Full code as per my discussion with the patient. Transfer out of ICU. (8) Cellulitis of left ankle: Status: Acute Assessment and plan: Now on cefepime. Vancomycin stopped; MRSA screen negative. Monitor. CBC in AM. (9) Sepsis: Status: Acute Assessment and plan: Resolved. Now back to baseline mentation, activity level. Continue Cefepime. Etiology cellulitis? aspiration w/o PNA? Subjective Subjective Patient reports: tolerating a regular diet and afebrile; denies nausea and vomit ing Interval history since last seen: Pt states he feels good. He has painted with water colors today. Ambulating in the room. Exam Narrative Exam Narrative: T 35.2, P 59, BP 105/65, O2 saturation 92% on 3L NC Speaks in full sentences w/o SOA Objective Last Vital Signs Temp 35.2 C L 05/23/21 13:17 Pulse 59 L 05/23/21 16:13 Resp 21 05/23/21 13:17 BP 105/65 05/23/21 13:17 Pulse Ox 92 05/23/21 13:17
[2021-05-23] MEDS: Acetaminophen 325 MG TAB PO (21:10)
[2021-05-23] MEDS: Atorvastatin 10 MG TAB PO (21:11)
[2021-05-23] MEDS: Pantoprazole 40 MG VIAL IVP (23:17)
[2021-05-23] MEDS: Divalproex Sodium 500 MG TAB.ER.24H 2000 MG PO (23:17)
[2021-05-23] MEDS: Insulin Glargine 300 UNITS/3 ML PEN 10 UNITS SC (23:25)
[2021-05-24] VITALS (13 sets, daily range): BP systolic 92–108; BP diastolic 59–68; PULSE 49–77; RESP 16–19; TEMP 34.9–36.4; O2SAT 92–100
[2021-05-24] MEDS: Nystatin 500000 UNITS/5 ML SUSP 5ML CUP PO ×5 (06:32→23:07)
[2021-05-24 07:53] LABS: HCT 41.9 % (40.0-50.0); MCH 30.5 pg (27.0-33.0); MCHC 33.4 % (32.0-36.0); MCV 91.3 fL (80-95); MPV 12.2 fL (8.0-11.0); Nucleated RBC 0 %; Platelet Count 323 10^3/uL (130-400); RBC 4.59 10^6/uL (4.36-5.78); RDW-SD 43.5 fL; WBC 16.12 10^3/uL (4.4-10.8)
[2021-05-24 08:03] LABS: Anion Gap 6.3 mmol/L (3-11); BUN 29 mg/dL (7-18); CO2 25.7 mmol/L (21.0-32.0); CREATININE 0.8 mg/dL (0.70-1.30); Calcium 8.7 mg/dL (8.5-10.1); Chloride 104 mmol/L (98-107); Glucose 241 mg/dL (74-106); Potassium 3.8 mmol/L (3.5-5.1); Sodium 136 mmol/L (136-145)
[2021-05-24 08:08] LABS: Absolute Lymphocyte Count 2.74 10^3/uL (1.2-3.4); Absolute Monocyte Count 0.97 10^3/uL (0.1-0.8); Absolute Neutrophil Count 12.25 10^3/uL (1.2-6.7); Atypical Lymphocytes % 1; Bands % 5; Diff Comment Manual Differential; Metamyelocytes % 1; RBC Morphology Normal
[2021-05-24] MEDS: Nystatin POWDER 60 GM JAR TP ×3 (09:54→20:21)
[2021-05-24] MEDS: CEFEPIME 2 GM in Normal Saline 100 ML IVPB ×3 (09:54→23:19)
[2021-05-24] MEDS: Normal Saline Flush 10 ML SYR IVP ×5 (09:54→23:09)
[2021-05-24] MEDS: Fluticasone NASAL SPRAY 16 GM BTL NS ×2 (09:55→20:21)
[2021-05-24] MEDS: Dexamethasone 4 MG TAB 6 MG PO (09:56)
[2021-05-24] MEDS: Acetaminophen 325 MG TAB PO (09:56)
[2021-05-24] MEDS: Furosemide 20 MG/2 ML VIAL IVP (09:56)
[2021-05-24] MEDS: Benzonatate 100 MG CAP PO ×3 (09:56→20:20)
[2021-05-24] MEDS: Calcium Carbonate *TUMS* 500 MG CHEW PO ×2 (09:56→13:45)
[2021-05-24] MEDS: Cholecalciferol (Vitamin D3) 1,000 UNIT TAB 2000 UNITS PO (09:56)
[2021-05-24] MEDS: Insulin Aspart 300 UNITS/3 ML PEN SC ×4 (09:57→23:30)
[2021-05-24] MEDS: Lisinopril 5 MG TAB PO (09:57)
[2021-05-24] MEDS: Ascorbic Acid 500 MG TAB 1000 MG PO ×2 (09:57→20:20)
[2021-05-24] MEDS: Apixaban 5 MG TAB PO ×2 (09:57→20:20)
[2021-05-24] MEDS: guaiFENesin 600 MG TABCR PO ×2 (09:57→20:19)
[2021-05-24] MEDS: Zinc Sulfate 220 MG TAB PO (09:57)
--- NOTE | 2021-05-24 10:19 | OT.INNT ---
Date of service: 05/24/21 Time of Service: 10:19 Occupational Therapy Notes 05/24/21 OT consult received and pts chart was reviewed, OT was unable to perform initial consult with pt today and will continue to attempt OT consult. Ellie Rodriguez OTR/[facility]
--- NOTE | 2021-05-24 12:51 | W.PM.PROGNOT ---
Date of Service Date of service: 05/24/21 Time of Service: 12:51 Assessment and Plan Assessment and plan (1) Pneumonia due to COVID-19 virus: Status: Acute Assessment and plan: Continue remdesivir, dexamethasone, baricitinib, vitamin C and D supplementation, zinc, antitussives, cough/mucolytics, IS/acapella. Inflammatory markers, d-dimer and crp, elevated in the background of sepsis but sepsis now resolving and markers are modestly down. On supplemental O2 chronically. Potentially d/c tomorrow. (2) Hypoxia: Status: Acute Assessment and plan: As above (3) Rhabdomyolysis: Status: Resolved Assessment and plan: Improved. Off IVF and s/p lasix. Resolved. Resumed statin Monitor kidney function; currently normal. (4) Ambulatory dysfunction: Status: Resolved Assessment and plan: Doing really well, independent in the room and discharged from PT. (5) Blister of left foot: Status: Acute Assessment and plan: Discussed case with podiatry: recommend mepilex and heel protector. (6) DVT prophylaxis: Status: Acute Assessment and plan: On therapeutic eliquis for Afib (7) Discharge planning issues: Status: Acute Assessment and plan: Full code as per my discussion with the patient. Transfer out of ICU. (8) Cellulitis of left ankle: Status: Acute Assessment and plan: Now on cefepime. Vancomycin stopped; MRSA screen negative. Monitor. CBC in AM. (9) Sepsis: Status: Acute Assessment and plan: Resolved. Now back to baseline mentation, activity level. Continue Cefepime. Etiology cellulitis? aspiration w/o PNA? Subjective Subjective Patient reports: feels better, tolerating a regular diet and afebrile; denies nausea, vomiting and shortness of breath Interval history since last seen: He states he would like to go home tomorrow. Ambulating in room. Exam Narrative Exam Narrative: T 35.2, P 59, BP 105/65, O2 saturation 92% on 3L NC Speaks in full sentences w/o SOA Const General: cooperative and no acute distress Nutritional Appearance: overweight Orientation: alert, oriented to person and oriented to place Resp Effort & Inspection: normal respiratory effort Auscultation: clear to auscultation bilaterally and diminished lung sounds Cardio Rate: regular rate Rhythm: regular rhythm GI Palpation: soft and nontender (No grimace or guarding with palpation. ) Skin General skin exam: erythema (left anterior ankle. No purulent lesions. Left heel with mepilex/bandage) Extrem General: no pedal edema Objective Last Vital Signs Temp 34.9 C L 05/24/21 07:43 Pulse 66 05/24/21 08:01 Resp 19 05/24/21 07:43 BP 103/63 05/24/21 10:10 Pulse Ox 92 05/24/21 10:10 Laboratory Results - last 24 hr 05/24/21 05/24/21 07:35 07:35 WBC 16.12 H RBC 4.59 Hgb 14.0 Hct 41.9 MCV 91.3 MCH 30.5 MCHC 33.4 RDW 13.0 Plt Count 323 MPV 12.2 H Immature Gran % 0.0 Neutrophils % 71.0 Band Neutrophils % 5 Lymphocytes % 16.0 Atypical Lymphs % 1 Monocytes % 6.0 Eosinophils % 0.0 Basophils % 0.0 Metamyelocytes % 1 Nucleated RBC % 0 Absolute Neutrophils 12.25 H Absolute Lymphocytes 2.74 Absolute Monocytes 0.97 H Absolute Eosinophils 0.00 Absolute Basophils 0.00 RBC Morphology Normal Sodium 136 Potassium 3.8 Chloride 104 Carbon Dioxide 25.7 Anion Gap 6.3 BUN 29 H Creatinine 0.8 Estimated GFR/1.73 m2 >= 60.00 Glucose 241 H Calcium 8.7
[2021-05-24] MEDS: rOPINIRole 0.5 MG TAB 1 MG PO (16:47)
--- NOTE | 2021-05-24 17:13 | CMPROGNOTE_ITS ---
Care Management Progress Note S/O: Judd appears to be closer to his baseline. His Fasting BS continues to be elevated. Judd connected with Alexandra from [employer] and reports that his rent is all set. He remains on 3L O2, RT and MD considering home O2 for discharge. CM will continue to support discharge planning needs. A: 60 year old male admitted to [facility] on 05/13/21 for Covid Pneumonia with hypoxia. P: Anticipate Judd will return home when medically cleared by provider. He will follow up with his PCP and discharge plan of care. Undetermined if Judd will r equire new [facility] services and/or new home O2. His [employer] INTAKE WORKER porter sample case is Nessa Tapia and [place] on aging porter sample case is Alexandra ([phone]), both have requested notification prior to discharge. Judd will likely transport home via EMS due to his Covid precautions. CM will continue to follow.
[2021-05-24] MEDS: Docusate Sodium 100 MG CAP 200 MG PO (17:45)
[2021-05-24] MEDS: Atorvastatin 10 MG TAB PO (20:20)
[2021-05-24] MEDS: Pantoprazole 40 MG VIAL IVP (23:07)
[2021-05-24] MEDS: Divalproex Sodium 500 MG TAB.ER.24H 2000 MG PO (23:07)
[2021-05-24] MEDS: Insulin Glargine 300 UNITS/3 ML PEN 15 UNITS SC (23:08)
[2021-05-24] MEDS: Normal Saline 500 ML 30 ML IV (23:20)
[2021-05-25] VITALS: BP 106/64; PULSE 63; RESP 16; TEMP 36.2; O2SAT 95
[2021-05-25] MEDS: Normal Saline Flush 10 ML SYR IVP ×3 (00:49→08:11)
[2021-05-25 04:19] VITALS: BP 118/86; PULSE 65; RESP 16; TEMP 36; O2SAT 94
[2021-05-25] MEDS: Nystatin 500000 UNITS/5 ML SUSP 5ML CUP PO ×2 (05:19→10:49)
[2021-05-25] MEDS: Docusate Sodium 100 MG CAP 200 MG PO (05:20)
[2021-05-25 05:47] VITALS: O2SAT 94
[2021-05-25 06:58] VITALS: PULSE 78
[2021-05-25 07:05] LABS: Abs Immature Grans 0.59 10^3/uL (0.0-0.06); Absolute Lymphocyte Count 2.94 10^3/uL (1.2-3.4); Absolute Monocyte Count 0.87 10^3/uL (0.1-0.8); Basophils % 0.5; Eosinophils % 0.1; HCT 43.9 % (40.0-50.0); HGB 14.6 g/dL (13.5-17.5); Immature Grans % 3.5; Lymphocytes % 17.2; MCH 29.9 pg (27.0-33.0); MCHC 33.3 % (32.0-36.0); MPV 12.1 fL (8.0-11.0); Monocytes % 5.1; Neutrophils % 73.6; Nucleated RBC 0 %; Platelet Count 316 10^3/uL (130-400); RBC 4.88 10^6/uL (4.36-5.78); RDW 12.9 % (11.8-14.1); RDW-SD 42.4 fL; WBC 17.08 10^3/uL (4.4-10.8)
[2021-05-25 07:11] LABS: Absolute Basophil Count 0.09 10^3/uL (0.0-0.2); Absolute Eosinophil Count 0.02 10^3/uL (0.0-0.7); Absolute Neutrophil Count 12.57 10^3/uL (1.2-6.7)
[2021-05-25] MEDS: CEFEPIME 2 GM in Normal Saline 100 ML IVPB (08:05)
[2021-05-25] MEDS: Benzonatate 100 MG CAP PO (08:07)
[2021-05-25] MEDS: Calcium Carbonate *TUMS* 500 MG CHEW PO (08:07)
[2021-05-25] MEDS: Cholecalciferol (Vitamin D3) 1,000 UNIT TAB 2000 UNITS PO (08:08)
[2021-05-25] MEDS: Zinc Sulfate 220 MG TAB PO (08:08)
[2021-05-25] MEDS: Apixaban 5 MG TAB PO (08:08)
[2021-05-25] MEDS: Lisinopril 5 MG TAB PO (08:09)
[2021-05-25] MEDS: guaiFENesin 600 MG TABCR PO (08:09)
[2021-05-25] MEDS: Ascorbic Acid 500 MG TAB 1000 MG PO (08:09)
[2021-05-25] MEDS: Dexamethasone 4 MG TAB 6 MG PO (08:09)
[2021-05-25] MEDS: Nystatin POWDER 60 GM JAR TP (08:10)
[2021-05-25] MEDS: Fluticasone NASAL SPRAY 16 GM BTL NS (08:10)
[2021-05-25] MEDS: Insulin Aspart 300 UNITS/3 ML PEN SC ×2 (08:17→11:59)
[2021-05-25 08:46] VITALS: BP 116/64; PULSE 86; RESP 17; TEMP 36.2; O2SAT 92
[2021-05-25] MEDS: Bisacodyl 5 MG TABEC PO (10:49)
[2021-05-25] MEDS: Senna TAB 1 TAB PO (10:49)
--- NOTE | 2021-05-25 12:38 | DSE_ITS ---
Date of service: 05/25/21 Time of Service: 12:38 DS: Diagnosis Discharge Diagnosis (1) Pneumonia due to COVID-19 virus: Status: Resolved (2) Blister of left foot: Status: Acute (3) Cellulitis of left ankle: Status: Acute (4) Sepsis: Status: Resolved (5) Rhabdomyolysis: Status: Resolved (6) Ambulatory dysfunction: Status: Resolved Discharge Plan Disposition Patient Disposition: HOME Condition: Stable Discharge Details Reason For Visit: COVID-19 Pneumonia with Hypoxia Admit Date/Time: 05/13/21 12:12 Admit Provider: Daksha Lopez Attending Provider: Daksha Lopez Primary Care Provider: Nisha Carrillo [facility] Course Hospital Course: 58-year-old male with a history of obesity, type 2 diabetes, schizophrenia, atrial fibrillation presents from home for generalized weakness for the past few days, intermittent cough and shortness of breath and found on floor today by [employer]. EMS reported an O2 sat of 90% on 5 L. CXR demonstrated bilateral infiltrates and cardiomegaly. SARS-COV2 nasal swab was positive. Patient had been vaccinated but had not received his booster. Patient was admitted initially to the med/surg floor as his oxygen needs were intially met by nasal cannula but shortly after arrival he was transfer to ICU for CPAP therapy. He was started on decadron, baricitinib, remdesivir. He was found to have rhabdomyolysis w/ CK of 2500 and he was given iv fluids. CK declined to 118 over the next few days. Troponin levels were normal, d-dimer was elevated at 1021 on admission and transient declined to 531 but renee to 1182 prior to discharge. Patient was maintained on apixaban which he had been on at home for afib. His dyspnea and hypoxia gradually improved to nasal cannula. His iv fluids were stopped and he required some iv lasix. He was transferred out of the ICU on 05/17. He was noted to have a blister on his left foot for which podiatry was consulted and mepilex pad and heel protector were recommended. At the time of transfer out of the ICU he was on 3 LPM per NC although still using CPAP at night. On 05/19 the patient was found to be obtunded and having lactic acidosis. CT of the head was performed and no acute cerebral pathology was noted. 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 MRSA screen and blood cultures and CXR were obtained and patient was started on Cefepime and Vancomycin. CXR on 05/19 demonstrated overall improved appearance of his lung lucio compared to 05/13 however by 05/21 his CXR demonstrated slight worsening of his basilar infiltrates and a PICC line had been placed. The left ankle was now showing signs of cellulitis w/ worsening reddening of the left foot and ankle. Repeat blood cultures from 05/19 however showed no growth. CRP was trended from admission d/t his COVID-19 pneumonia. Initially his CRP was 10.68 and declined to 0.96 on 05/18 with treatment of his COVDI-19 pneumonia w/ decadron, remdesivir and baricitinib. However with the patient's acute decline on 05/19 his CRP had risen to 3.91 and peaked at 22.96 on 05/22 with w/ broad spectrum antibiotics his CRP declined to 2.1 by 05/25. By 05/21 patient's obtunded state had cleared and he was back to his baseline congnition. By 05/22 he was eating a regular diet and was feeling markedly better and he was transferred out of the ICU. By 05/23 he was ambulating in his room and his MRSA screen came back negative and vancomycin was stopped. On 05/24 the patient was able to be taken off [id number] oxygen and he remains off oxygen for 24hr. On Friday 05/25 the patient was ambulating w/out dyspnea or hypoxemia and wwas requesting to be discharged. His left foot redness and induration had receded markedly and he had no pain. He was advised that he would need to continue treatment w/ dual antibiotics w/ Keflex and Bactrim DS for a week and to keep the superficial skin ulcer clean w/ antibacterial soap and apply a clean dry Telfa to the wound. Home Meds and New Rx's Prescriptions: New sulfamethoxazole-trimethoprim [Bactrim DS] 800-160 mg tablet 1 tab PO BID 7 Days Qty: 14 RF: 0 cephalexin 500 mg tablet 500 mg PO QID 7 Days Qty: 28 RF: 0 Continued Eliquis 5 MG tablet 5 mg PO BID Qty: 180 RF: 12 clozapine 100 MG tablet 300 mg PO HS RF: 0 sennosides [senna] 8.6 MG tablet 8.6 mg PO BID PRN1 Days RF: 0 atorvastatin [Lipitor] 10 MG tablet 10 mg PO QPM RF: 0 divalproex 500 MG tablet extended release 24 hr 2,000 mg PO HS RF: 0 thyroid (pork) [[place] Thyroid] 90 MG tablet 90 mg PO QAM RF: 0 melatonin 3 MG tablet extended release 3 mg PO HS PRNRF: 0 ropinirole 1 mg Tablet 1 mg PO DIRECTED RF: 0 metformin 1,000 mg Tablet 1,000 mg PO BID RF: 0 albuterol sulfate [Ventolin HFA] 90 mcg/actuation Hfa Aerosol Inhaler 2 puff INHALATION Q4H PRNRF: 0 docusate sodium 100 mg capsule 200 mg PO BID PRNRF: 0 calcium carbonate 500 mg calcium (1,250 mg) Tablet,Chewable 500 mg PO TID RF: 0 fluticasone propionate 50 mcg/actuation [place],Suspension 1 spray INTRANASAL Q12H RF: 0 loratadine 10 mg Tablet 10 mg PO DAILY PRNRF: 0 Discontinued lisinopril 5 mg tablet 5 mg PO DAILY RF: 0 Discharge Instructions Instructions: Cellulitis (DC), How To Wash Your Hands (DC), COVID-19 and Chronic Health Conditions (DC), COVID-19: Slow the Coronavirus Spread (DC), Face Coverings (Masks) and COVID-19 (DC) Additional Instructions: wash your leg wound daily with an antibacterial soap and water and pat the skin dry. You may apply some neosporin ointment to the wound and cover w/ a sterile telfa pad and use kerlex gauze to hold the telfa pad in place. If you develope fever or severe shaking chills or your leg wound gets more red and swollen, seek immediate medical attention. Otherwise follow up with your primary care provider next week. You have been treated for COVID-19 pneumonia but you no longer need oxygen and no longer need steroid treatment. You should try to get a booster vaccine in 3 to 4 weeks. You should avoid direct contact with other people for the next 4 days at which time you would no longer be considered contagious. You should wear a mask when out in public and wash your hands frequently. Finish all of the antibiotics prescribed for the cellulitis of your leg. These include trimethoprim/sulfamethoxazone and cephalexin. Stand Alone Forms: Nursing Discharge Form Referrals: Nisha Carrillo MD [Primary Care Provider] - (call the office on Thursday for follow up appointment) Activity:: Activity as Tolerated Equipment/Supplies:: No Equipment Needed Diet:: Carb Counting Discharge Orders Discharge Orders: Discharge Order (Routine); Ordered 05/25/21 Ordered By: Brice Hickman Discharge Data Discharge Date/Time-TO BE ENTERED AT DEPARTURE: 05/25/21 14:01 DS: Summary Time Spent with Patient providing and/or coordinating discharge services: Greater than 30 minutes Status at Discharge Functional status at discharge: uses cane/walker Overall status at discharge: patient is progressing back to baseline Mental Status: mental status grossly normal Speech and Movement: speech and movement normal Mood: congruent mood Affect: normal affect Exam Narrative Exam Narrative: Middle-aged white male lying in bed in no discomfort or distress. He is alert and oriented person place time circumstance. Lungs are clear to auscultation Heart is regular rate and rhythm Abdomen soft nondistended nontender normal bowel sounds Left lower leg has a small area of erythema and a superficial skin abrasion over the dorsum of his left distal tibia at the level of his ankle. There is no tenderness no purulent discharge. Mepilex dressing is covering the wound. He has normal pedal pulses. Psych Mental Status: mental status grossly normal Speech and Movement: speech and movement normal Mood: congruent mood Affect: normal affect DS: Data Vitals/I&O Vitals and I&O: Vital Signs Temperature 36.2 C L 05/25/21 08:46 Temperature Source Tympanic 05/25/21 08:46 Pulse 86 05/25/21 08:46 Pulse Rhythm Regular 05/25/21 09:29 Pulse 99 H 05/23/21 10:00 Respiratory Rate 17 05/25/21 08:46 Respiratory Effort 05/25/21 09:29 Respiratory Depth Normal 05/25/21 09:29 Respiratory Pattern Normal 05/25/21 09:29 Blood Pressure 116/64 05/25/21 08:46 Blood Pressure Mean 68 05/23/21 09:22 Blood Pressure Position Supine 05/22/21 04:00 Pulse Oximetry 92 05/25/21 08:46 Oxygen Delivery Method Room Air 05/25/21 09:29 Oxygen Flow Rate 0 05/25/21 09:29 Fraction of Inspired Oxygen (FIO2) 47 05/22/21 04:00 Pain Level 0 05/25/21 08:46 Comment 05/22/21 20:50 Intake & Output 05/24/21 05/25/21 05/25/21 23:59 11:59 23:59 Intake Total 1330 / 1790 640 / 640 Output Total 2650 / 3900 900 / 900 Balance -1320 / -2110 -260 / -260 Intake: IV 270 / 370 100 / 100 Oral 1060 / 1420 540 / 540 Output: Urine 2650 / 3900 900 / 900 Other: Urine Color Yellow Yellow Urine Appearance Clear Clear Urine Odor None Normal Comment 200 ml urine in urinal and found floor wet with urine. 200 ml urine in urinal. Pt bed linens soak with urine and some urine spilled on floor. Voiding Methods Urinal Urinal Incontinent Data Completed and Pending Labs on day of discharge: Labs from last 24 hours 05/25/21 05/25/21 06:45 06:45 WBC 17.08 H RBC 4.88 Hgb 14.6 Hct 43.9 MCV 90.0 MCH 29.9 MCHC 33.3 RDW 12.9 Plt Count 316 MPV 12.1 H Immature Gran % 3.5 Neutrophils % 73.6 Lymphocytes % 17.2 Monocytes % 5.1 Eosinophils % 0.1 Basophils % 0.5 Nucleated RBC % 0 Absolute Neutrophils 12.57 H Absolute Lymphocytes 2.94 Absolute Monocytes 0.87 H Absolute Eosinophils 0.02 Absolute Basophils 0.09 C-Reactive Protein 2.10 H PFSH All Active Problems (Updated 05/25/21 @ 12:40 by Brice Hickman) Aspiration into airway (Acute) Altered mental status (Acute) Cellulitis (Acute) Alkalosis (Acute) Cellulitis of left ankle (Acute) Blister of left foot (Acute) Hyperglycemia (Acute) Elevated CK (Acute) Respiratory failure with hypoxia (Acute) Vitreous floaters of right eye (Acute) Requires supplemental oxygen (Acute) Generalized weakness (Acute) Hyperthermia associated with heat (Acute) BRENNEN (acute kidney injury) (Acute) Syncope (Acute) Dehydration (Acute) Screening for colorectal cancer (Acute) Medical History (Updated 05/25/21 @ 12:40 by Brice Hickman) Bipolar disorder Chronic schizophrenia Diabetes mellitus, type 2 Non-ST elevation TN (NSTEMI) Obesity Surgical History Colonoscopy - MAC (01/25/16) 2011 Excision, Lipoma Hx of cholecystectomy Hydrocelectomy Tonsillectomy Family History Mother No problems noted. Father Heart disease Brother Alcohol abuse Social History Smoking/Tobacco Use Status: Current-Occasional Tobacco Type: cigarettes Smoking risk assessment performed?: Yes Alcohol Intake: current Alcohol Intake frequency: holidays/special occasions only Alcohol type: beer and hard liquor Drug use: Never Substance use type: does not use Do you feel safe at home: Yes Do you feel safe in your relationship?: Yes
[2021-05-25 13:16] VITALS: PULSE 68
--- NOTE | 2021-05-25 14:30 | CMDISCH_ITS ---
- If Service Date Differs Date of service: 05/25/21 Time of Service: 14:30 LACE Index Scoring Tool - Questions: Length of Stay (in days): 7 - 13 Acuity (Admit via E.D.?): Yes Comorbidities: Previous M.I., Diabetes w/o Complication E.D. Visits: 3 - Answers: Total Score: 13 Risk of Readmission: High Risk Care Management Discharge Reason for Hospitalization: Covid-19 pneumonia with hypoxia Discharge Plan: Judd will be discharged home with a resumption of his community supports including [employer] and [employer]. He will follow up with his PCP, community providers, and plan of care as directed. He will be transported home via ambulance coordinated by CM. Patient/Family Education Needs: Review discharge instructions, limitations, and follow up plan of care; discussion of Ask Me Three and self management. - MH Services (Omit if N/A) Current MH Services: [facility] [employer]
== END 2021-05-25 14:01 | disposition home or self-care (01) | DRG 177 ==
LOC: ER 12:21 → MS 13:25 → ICU 16:41 → MS 05-18 07:17 → ICU 05-19 12:12 → MS 05-23 10:59
PROVIDERS: Family Medicine; Student in an Organized Health Care Education/Training Program; Admitting Provider Internal Medicine; Emergency Provider Physician Assistant; PCP Family Medicine; Visit Provider Internal Medicine
DX: U07.1 COVID-19 (principal); J12.82 Pneumonia due to coronavirus disease 2019; J96.01 Acute respiratory failure with hypoxia; A41.9 Sepsis, unspecified organism; M62.82 Rhabdomyolysis; N17.9 Acute kidney failure, unspecified; E87.2 Acidosis; E87.3 Alkalosis; L03.116 Cellulitis of left lower limb; E66.9 Obesity, unspecified; Z68.30 Body mass index [BMI] 30.0-30.9, adult; R26.2 Difficulty in walking, not elsewhere classified; R53.1 Weakness; E86.0 Dehydration; H43.391 Other vitreous opacities, right eye; F20.9 Schizophrenia, unspecified; F31.9 Bipolar disorder, unspecified; F17.210 Nicotine dependence, cigarettes, uncomplicated; E11.65 Type 2 diabetes mellitus with hyperglycemia; I25.2 Old myocardial infarction; S90.822A Blister (nonthermal), left foot, initial encounter; X58.XXXA Exposure to other specified factors, initial encounter
CPT/HCPCS: 36410; 36415; 36569; 71045; 80048; 80053; 80076; 82306; 82550; 82805; 84145; 87040; 87081; 87635; 94640; 96361; 96374; 97162; 97530; 99285; 70450; 80202; 81003; 82728; 83605; 83735; 84100; 84443; 84484; 85025; 85379; 85610; 86140; 94660; 94667; 94760; 99232; 99233; 99238; 99291; 99292; J0131; J1885; J1940; J1941; J2930; J3490; J7620; J8540

== ENCOUNTER 2021-06-13 19:01 | Outpatient (REF) | payer MEDICARE, MEDICAID, SELFPAY ==
[2021-06-14 12:32] LABS: Varicella Zoster DNA Result Positive (Negative)
[2021-06-14 15:05] LABS: HSV 1 DNA Result Indeterminate (Negative); HSV 2 DNA Result Indeterminate (Negative)
== END 2021-06-13 19:02 | disposition home or self-care (01) ==
LOC: NCHCN 19:01
PROVIDERS: PCP Family Medicine; Visit Provider Family Medicine
DX: R21 Rash and other nonspecific skin eruption (principal)
CPT/HCPCS: 87529; 87798

== ENCOUNTER 2021-06-17 04:10 | Outpatient (CLI) | payer MEDICARE, MEDICAID, SELFPAY | END 2021-06-17 04:11 | disposition home or self-care (01) | LOC: LBO 04:11 | PROVIDERS: PCP Family Medicine; Visit Provider Psychiatry & Neurology Psychiatry ==

== ENCOUNTER → 2021-06-21 09:04 | Outpatient (BNVA) | payer MEDICARE, MEDICAID, SELFPAY | PROVIDERS: PCP Family Medicine; Referring Provider Family Medicine; Visit Provider Physical Therapy Assistant | DX: L97.402 Non-pressure chronic ulcer of unspecified heel and midfoot with fat layer exposed (principal); L03.90 Cellulitis, unspecified; I10 Essential (primary) hypertension; Z72.89 Other problems related to lifestyle | CPT/HCPCS: 99214 ==

== ENCOUNTER 2021-06-21 11:38 | Outpatient (REF) | payer MEDICARE, MEDICAID, SELFPAY ==
[2021-06-21 10:31] LABS: Abs Immature Grans 0.22 10^3/uL (0.0-0.06); Absolute Basophil Count 0.05 10^3/uL (0.0-0.2); Absolute Eosinophil Count 0.04 10^3/uL (0.0-0.7); Absolute Lymphocyte Count 1.95 10^3/uL (1.2-3.4); Absolute Monocyte Count 0.71 10^3/uL (0.1-0.8); Absolute Neutrophil Count 5.13 10^3/uL (1.2-6.7); Basophils % 0.6; Eosinophils % 0.5; HCT 41.8 % (40.0-50.0); Immature Grans % 2.7; Lymphocytes % 24.1; MCH 30.7 pg (27.0-33.0); MCHC 31.1 % (32.0-36.0); MCV 98.6 fL (80-95); MPV 10.5 fL (8.0-11.0); Monocytes % 8.8; Neutrophils % 63.3; Nucleated RBC 0 %; Platelet Count 321 10^3/uL (130-400); RBC 4.24 10^6/uL (4.36-5.78); RDW 15.5 % (11.8-14.1); RDW-SD 55.4 fL
[2021-06-21 10:36] LABS: ESR 19 mm/hr (0-20)
[2021-06-21 10:41] LABS: C-Reactive Protein 0.23 mg/dL (0.0-0.3)
== END 2021-06-21 11:39 | disposition home or self-care (01) ==
LOC: LBN 11:38
PROVIDERS: PCP Family Medicine; Visit Provider Physical Therapy Assistant
DX: T67.1XXA Heat syncope, initial encounter (principal); L03.116 Cellulitis of left lower limb; L97.429 Non-pressure chronic ulcer of left heel and midfoot with unspecified severity
CPT/HCPCS: 85652; 85025; 86140

== ENCOUNTER 2021-06-27 01:57 | Outpatient (CLI) | payer MEDICARE, MEDICAID, SELFPAY | END 2021-06-27 01:58 | disposition home or self-care (01) | LOC: LBO 01:57 | PROVIDERS: PCP Family Medicine; Visit Provider Psychiatry & Neurology Psychiatry | DX: L97.428 Non-pressure chronic ulcer of left heel and midfoot with other specified severity (principal); S31.000D Unspecified open wound of lower back and pelvis without penetration into retroperitoneum, subsequent encounter; X58.XXXD Exposure to other specified factors, subsequent encounter; Z72.89 Other problems related to lifestyle | CPT/HCPCS: 11042; 99214 ==

== ENCOUNTER 2021-07-04 03:33 | Outpatient (CLI) | payer MEDICARE, MEDICAID, SELFPAY ==
[2021-07-04 14:58] LABS: Abs Immature Grans 0.06 10^3/uL (0.0-0.06); Absolute Basophil Count 0.05 10^3/uL (0.0-0.2); Absolute Eosinophil Count 0.04 10^3/uL (0.0-0.7); Absolute Lymphocyte Count 2.36 10^3/uL (1.2-3.4); Absolute Monocyte Count 0.64 10^3/uL (0.1-0.8); Absolute Neutrophil Count 5.08 10^3/uL (1.2-6.7); Basophils % 0.6; Eosinophils % 0.5; HCT 46.7 % (40.0-50.0); HGB 14.8 g/dL (13.5-17.5); Immature Grans % 0.7; Lymphocytes % 28.7; MCH 31.2 pg (27.0-33.0); MCHC 31.7 % (32.0-36.0); MCV 98.3 fL (80-95); MPV 11.8 fL (8.0-11.0); Monocytes % 7.8; Neutrophils % 61.7; Nucleated RBC 0 %; Platelet Count 196 10^3/uL (130-400); RBC 4.75 10^6/uL (4.36-5.78); RDW 15.5 % (11.8-14.1); RDW-SD 56.6 fL; WBC 8.23 10^3/uL (4.4-10.8)
[2021-07-04 15:34] LABS: VALPROIC ACID 83.5 ug/mL
[2021-07-04 16:03] LABS: ALT 25 U/L (16-63); AST 12 U/L (15-37); Albumin 3.4 g/dL (3.4-5.0); Alkaline Phosphatase 67 U/L (46-116); Anion Gap 11.7 mmol/L (3-11); BUN 13 mg/dL (7-18); Bilirubin, Total 0.2 mg/dL (0.2-1.0); CO2 26.3 mmol/L (21.0-32.0); CREATININE 0.7 mg/dL (0.70-1.30); Calcium 9.1 mg/dL (8.5-10.1); Chloride 103 mmol/L (98-107); Glucose 191 mg/dL (74-106); Magnesium 1.6 mg/dL (1.8-2.4); Potassium 4.2 mmol/L (3.5-5.1); Sodium 141 mmol/L (136-145); Total Protein 7.3 g/dL (6.4-8.2); Vitamin B12 403 pg/mL (193-986)
[2021-07-04 16:11] LABS: C-Reactive Protein 0.16 mg/dL (0.0-0.3)
[2021-07-04 21:43] LABS: T3,Free 4.1 pg/mL (2.8-5.3)
== END 2021-07-04 03:34 | disposition home or self-care (01) ==
PROVIDERS: PCP Family Medicine; Visit Provider Psychiatry & Neurology Psychiatry
DX: L97.428 Non-pressure chronic ulcer of left heel and midfoot with other specified severity (principal); Z72.89 Other problems related to lifestyle; F25.0 Schizoaffective disorder, bipolar type; Z51.81 Encounter for therapeutic drug level monitoring; Z79.899 Other long term (current) drug therapy
CPT/HCPCS: 36415; 80053; 80061; 82306; 97597; 80164; 82607; 82728; 83036; 83735; 84439; 84443; 84481; 85025; 86140

== ENCOUNTER → 2021-07-11 09:44 | Outpatient (BNVA) | payer MEDICARE, MEDICAID, SELFPAY | PROVIDERS: PCP Family Medicine; Referring Provider Family Medicine; Visit Provider Physical Therapy Assistant | DX: L97.429 Non-pressure chronic ulcer of left heel and midfoot with unspecified severity (principal); Z72.89 Other problems related to lifestyle | CPT/HCPCS: 99213 ==

== ENCOUNTER → 2021-07-18 13:26 | Outpatient (BNVA) | payer MEDICARE, MEDICAID, SELFPAY | PROVIDERS: PCP Family Medicine; Referring Provider Family Medicine; Visit Provider Physical Therapy Assistant | DX: L97.429 Non-pressure chronic ulcer of left heel and midfoot with unspecified severity (principal) | CPT/HCPCS: 99213 ==

== ENCOUNTER 2021-07-19 18:57 | Emergency (ER) | payer MEDICARE, MEDICAID, SELFPAY ==
[2021-07-19 19:05] VITALS: BP 107/73; PULSE 78; RESP 20; TEMP 36.4; O2SAT 94
[2021-07-19] MEDS: Fluorescein STRIPS 100/BOX 1 MG OP (19:25)
--- NOTE | 2021-07-19 20:51 | ED.GENADUL_ITS ---
Discharge Plan Disposition Patient Disposition: HOME Condition: Stable Discharge Details Clinical Impression: Changes in vision Primary Care Provider: Nisha Carrillo ED Provider: Sonya Butcher Home Meds and New Rx's Prescriptions: Continued Eliquis 5 MG tablet 5 mg PO BID Qty: 180 12RF clozapine 100 MG tablet 300 mg PO HS 0RF sennosides [senna] 8.6 MG tablet 8.6 mg PO BID PRN1 Days 0RF Rx Instructions: prn atorvastatin [Lipitor] 10 MG tablet 10 mg PO QPM 0RF divalproex 500 MG tablet extended release 24 hr 2,000 mg PO HS 0RF Rx Instructions: takes at 1600 thyroid (pork) [[place]ove Thyroid] 90 MG tablet 90 mg PO QAM 0RF melatonin 3 MG tablet extended release 3 mg PO HS PRN0RF ropinirole 1 mg Tablet 1 mg PO DIRECTED 0RF Rx Instructions: at 1600 metformin 1,000 mg Tablet 1,000 mg PO BID 0RF albuterol sulfate [Ventolin HFA] 90 mcg/actuation Hfa Aerosol Inhaler 2 puff INHALATION Q4H PRN0RF docusate sodium 100 mg capsule 200 mg PO BID PRN0RF calcium carbonate 500 mg calcium (1,250 mg) Tablet,Chewable 500 mg PO TID 0RF fluticasone propionate 50 mcg/actuation [place],Suspension 1 spray INTRANASAL Q12H 0RF loratadine 10 mg Tablet 10 mg PO DAILY PRN0RF Discharge Instructions Additional Instructions: Please call Jareth first thing in the morning on Thursday for follow-up, please return immediately should you have any change in your vision Continue on your prescribed medication ? Referrals: Nisha Carrillo MD [Primary Care Provider] - Medical Decision Making Patient has reassuring exam findings, his visual acuity is 20/40 in the left eye, 20/25 in the right eye, 20/25 in both eyes The concern is that he could have a vitreous hemorrhage, there is a low clinical suspicion for retinal detachment clinically given patient physical and clinical exam findings I spoke with Dr. Maki, ophthalmology for [facility] and he does not see need for urgent intervention or assessment, but does recommend reassessment on Thursday There is no clinical sign or symptom of, clinically on this exam Patient is resting comfortably in the room He has stable vitals with stable vision He is given low threshold to return should he have new or worsening complaints and these were reviewed with patient in detail PLACED on list for [facility] eye care be follow-up on Thursday, he has encouraged that this is very important Medical Records Medical records reviewed: Yes I reviewed the patient's medical records. HPI General Date/Time Provider Initiated Documentation: 07/19/21 19:03 . Limitations to Documentation: no limitations . Information obtained by: patient . HPI Narrative: 60-year-old gentleman with history of diabetes, BRENNEN presents with left floaters to the periphery of his lateral eye. Patient denies any current headache or vision change. He denies any trauma to the affected area. He describes the floaters as brown in color. He denies any flashing lights. He denies any curtain sensation or loss of vision. He denies any corrective lens use. Related Data Home Medications Medication Instructions Recorded Confirmed atorvastatin 10 mg tablet (Lipitor) 10 mg PO QPM 01/23/16 07/19/21 divalproex 500 mg tablet,extended 2,000 mg PO HS 01/23/16 07/19/21 release 24 hr melatonin 3 mg tablet,extended 3 mg PO HS PRN 01/23/16 07/19/21 release thyroid (pork) 90 mg tablet 90 mg PO QAM 01/23/16 07/19/21 (Cove Thyroid) apixaban 5 mg tablet (Eliquis) 5 mg PO BID #180 tab 07/20/17 07/19/21 clozapine 100 mg tablet 300 mg PO HS tab-cap 07/28/17 07/19/21 sennosides 8.6 mg tablet (senna) 8.6 mg PO BID PRN 1 Days 07/28/17 07/18/21 albuterol sulfate 90 mcg/actuation 2 puff INHALATION Q4H PRN 03/27/19 07/19/21 aerosol inhaler (Ventolin HFA) metformin 1,000 mg tablet 1,000 mg PO BID 03/27/19 07/19/21 ropinirole 1 mg tablet 1 mg PO DIRECTED 03/27/19 07/19/21 docusate sodium 100 mg capsule 200 mg PO BID PRN 11/13/20 07/19/21 calcium carbonate 500 mg calcium 500 mg PO TID 05/13/21 07/19/21 (1,250 mg) chewable tablet fluticasone propionate 50 1 spray INTRANASAL Q12H 05/13/21 07/19/21 mcg/actuation nasal spray,suspension loratadine 10 mg tablet 10 mg PO DAILY PRN 05/13/21 07/19/21 Previous Rx's Medication Instructions Recorded apixaban 5 mg tablet (Eliquis) 5 mg PO BID #180 tab 07/20/17 Allergies Allergy/AdvReac Type Severity Reaction Status Date / Time Penicillins AdvReac Intermediate black out Unverified 07/19/21 19:51 gabapentin AdvReac Mild Headache Unverified 07/19/21 19:51 niacin AdvReac Mild turn red Unverified 07/19/21 19:51 General Stated Complaint: EyeProblem MARY: 3 Review of Systems All systems reviewed & are unremarkable except as noted in HPI and below PFSH All Active Problems (Updated 07/19/21 @ 20:49 by SWAPNA Crawley) Changes in vision (Acute) Heel ulcer (Acute) Cellulitis (Acute) Cellulitis of left ankle (Acute) Blister of left foot (Acute) Hyperglycemia (Acute) Vitreous floaters of right eye (Acute) Hyperthermia associated with heat (Acute) BRENNEN (acute kidney injury) (Acute) Syncope (Acute) Dehydration (Acute) Screening for colorectal cancer (Acute) Medical History (Updated 07/19/21 @ 20:49 by SWAPNA Crawley) Bipolar disorder Chronic schizophrenia Diabetes mellitus, type 2 Non-ST elevation [place] (NSTEMI) Obesity Surgical History Colonoscopy - MAC (01/25/16) 2011 Excision, Lipoma Hx of cholecystectomy Hydrocelectomy Tonsillectomy Family History Mother No problems noted. Father Heart disease Brother Alcohol abuse Social History Smoking/Tobacco Use Status: Current-Occasional Tobacco Type: cigarettes Smoking risk assessment performed?: Yes Alcohol Intake: current Alcohol Intake frequency: holidays/special occasions only Alcohol type: beer and hard liquor Drug use: Never Substance use type: does not use Do you feel safe at home: Yes Do you feel safe in your relationship?: Yes Exam Const General: cooperative, comfortable and no acute distress HENMT Head: normal to inspection Eyes Conjunctivae: conjunctivae normal Sclera: sclerae normal Pupils: PERRL EOM: EOM intact bilaterally Direct ophthalmoscopy: normal light reflex Other: no proptosis Resp Effort & Inspection: normal respiratory effort Cardio Rate: regular rate Neuro General: patient alert and patient oriented x3 Course Vital Signs Vital signs: Vital Signs Temperature 36.4 C 07/19/21 19:05 Pulse 78 07/19/21 19:05 Respiratory Rate 20 07/19/21 19:05 Blood Pressure 107/73 07/19/21 19:05 Pulse Oximetry 94 07/19/21 19:05 Temperature 36.4 C 07/19/21 19:05 Temperature Source Oral 07/19/21 19:05 Pulse 78 07/19/21 19:05 Respiratory Rate 20 07/19/21 19:05 Respiratory Effort Non-Labored 07/19/21 19:55 Blood Pressure 107/73 07/19/21 19:05 Blood Pressure Position Sitting 07/19/21 19:05 Pulse Oximetry 94 07/19/21 19:05 Oxygen Delivery Method Room Air 07/19/21 19:05 Oxygen Flow Rate 0 07/19/21 19:05 Pain Level 0 07/19/21 19:05
--- NOTE | 2021-07-19 20:51 | NUR.NOTE ---
Referral faxed to [facility] to f/u on 07/22/21 for vision changes.Nursing Note:
[2021-07-20] MEDS: Tetracaine 0.5% 4 ML BTL OP (19:05)
== END 2021-07-19 20:53 | disposition home or self-care (01) ==
PROVIDERS: Emergency Provider Physician Assistant; PCP Family Medicine
DX: H43.392 Other vitreous opacities, left eye (principal)
CPT/HCPCS: 99283

== ENCOUNTER → 2021-07-25 14:20 | Outpatient (BNVA) | payer MEDICARE, MEDICAID, SELFPAY | PROVIDERS: PCP Family Medicine; Visit Provider Physical Therapy Assistant | DX: L97.429 Non-pressure chronic ulcer of left heel and midfoot with unspecified severity (principal) | CPT/HCPCS: 99212 ==

== ENCOUNTER 2021-08-10 17:44 | Observation (INO) | payer MEDICARE, MEDICAID, SELFPAY ==
[2021-08-10] VITALS (12 sets, daily range): BP systolic 116–146; BP diastolic 76–91; PULSE 57–83; RESP 16–18; TEMP 35–36.6; O2SAT 96–99
--- NOTE | 2021-08-10 17:30 | RT.EKG_ITS ---
APPROVED REPORT Exam: Resting ECG Reason for Exam: altered mental status Patient Location: E HR:82 bpm ECG Measurements Heart Rate 82 AXIS MD [id number] P [id number] QRSd 91 QRS 66 QT 392 T 10 QTc 458 Conclusion Atrial fibrillation...V-rate 76- 92, irreg A-activity. Afib. No STEMI. I have reviewed and interpreted ECG and agree with software generated interpretation.
--- NOTE | 2021-08-10 17:48 | ED.GENADUL_ITS ---
Discharge Plan Disposition Patient Disposition: [facility] INPATIENT Condition: Stable Discharge Details Clinical Impression: Altered mental status, Dehydration Admit Date/Time: 08/10/21 20:08 Admit Provider: Brice Hickman Attending Provider: Brice Hickman Primary Care Provider: Nisha Carrillo ED Provider: Kelley Borges Discharge Data Discharge Date/Time-TO BE ENTERED AT DEPARTURE: 08/10/21 20:58 Medical Decision Making 60yo M w/ a h/o anxiety, depression, schizophrenia, obesity, type 2 diabetes and atrial fibrillation presents from home for confusion. Patient is unable to provide a history. Staff members here that no patient well states that he is more altered than his baseline. He is able to answer some questions but other questions with inappropriate answers. When asked patient where he [place]. When asked the year he states 1500s. Patient appears extremely disheveled. His right heel wound appears chronic without evidence of acute infection. He will not allow me to examine his jessie jayesh area and continues to cover with blankets. Differential diagnosis includes acute psychotic episode, dehydration, electrolyte abnormality, UTI, CVA, etc. We will place an IV, bolus IV fluids, screening labs, urinalysis, CT head, chest x-ray. Labs and imaging reviewed. Normal white blood cell count. Normal lactate. Glucose 123. Bicarb 20. Anion gap 17.3. Troponin negative. Urinalysis notes ketones but no evidence of infection. CT head negative for acute disease. Chest x-ray notes mild interstitial infiltrates and/or edema. Patient demonstrates no signs of respiratory distress. He has had normal respiratory rate, normal oxygen saturation, afebrile without report of cough or shortness of breath will hold on treatment for pneumonia at this time. He also has no clinical signs of CHF. Without report of fever and no complaint of headache or neck pain, no meningeal signs and normal wbc/lactate, meningitis appears less likely. As patient is reportedly more altered than his baseline, will plan for admission to the hospital for continued monitoring. A straight cath urine sample has been obtained. Remainder of tox work-up is pending. We will also obtain a VBG. Case discussed with hospitalist who accepts patient for admission. Medical Records Medical records reviewed: Yes I reviewed the patient's medical records. Imaging Data Radiologic Study: Radiologist's impression: CT Head Without Contrast Exam date and time: 08/10/2021 6:20 PM Age: 60 years old Clinical indication: Altered mental status/memory loss TECHNIQUE: Imaging protocol: Computed tomography of the head without contrast. COMPARISON: CT HEAD WO 05/20/2021 10:49 AM FINDINGS: Brain: Negative for intracranial hemorrhage. Moderate cerebral atrophy noted. Negative for midline shift. No specific cortical infarct. Extra-axial space: No evidence of subdural hemorrhage. Cerebral ventricles: No ventriculomegaly. Paranasal sinuses: Visualized sinuses are unremarkable. No fluid levels. Mastoid air cells: Visualized mastoid air cells are well aerated. Bones/joints: Unremarkable. No acute fracture. Soft tissues: Unremarkable. IMPRESSION: Negative for intracranial hemorrhage or other acute intracranial abnormality. XR Chest Exam date and time: 08/10/2021 6:21 PM Age: 60 years old Clinical indication: Other: AMS TECHNIQUE: Imaging protocol: XR of the chest. Views: 2 views. COMPARISON: CR XR PORTABLE CHEST AP POST LINE 05/21/2021 12:56 PM FINDINGS: Lungs: Mild perihilar and basilar interstitial prominence. No specific consolidation. Pleural spaces: Negative for pneumothorax. Negative for pleural effusion. Heart/Mediastinum: Negative for mediastinal widening. Mild cardiomegaly. Bones/joints: Unremarkable. Soft tissues: Negative for chest wall air. IMPRESSION: 1. Negative for pneumothorax. 2. Mild interstitial infiltrates and/or edema. Lab Data Lab results reviewed: Yes I reviewed the patient's lab results. ECG Data Attestation: I personally reviewed and interpreted this ECG (s) as follows: Interpretation: Rate of 82, A. fib, no STEMI HPI General Date/Time Provider Initiated Documentation: 08/10/21 17:47 . Related Data Home Medications Medication Instructions Recorded Confirmed atorvastatin 10 mg tablet (Lipitor) 10 mg PO QPM 01/23/16 08/10/21 divalproex 500 mg tablet,extended 2,000 mg PO HS 01/23/16 08/10/21 release 24 hr melatonin 3 mg tablet,extended 3 mg PO HS PRN 01/23/16 08/10/21 release thyroid (pork) 90 mg tablet 90 mg PO QAM 01/23/16 08/10/21 ([place] Thyroid) apixaban 5 mg tablet (Eliquis) 5 mg PO BID #180 tab 07/20/17 08/10/21 clozapine 100 mg tablet 300 mg PO HS tab-cap 07/28/17 08/10/21 sennosides 8.6 mg tablet (senna) 8.6 mg PO BID PRN 1 Days 07/28/17 08/10/21 albuterol sulfate 90 mcg/actuation 2 puff INHALATION Q4H PRN 03/27/19 08/10/21 aerosol inhaler (Ventolin HFA) metformin 1,000 mg tablet 1,000 mg PO BID 03/27/19 08/10/21 ropinirole 1 mg tablet 1 mg PO DIRECTED 03/27/19 08/10/21 docusate sodium 100 mg capsule 200 mg PO BID PRN 11/13/20 08/10/21 calcium carbonate 500 mg calcium 500 mg PO TID 05/13/21 08/10/21 (1,250 mg) chewable tablet fluticasone propionate 50 1 spray INTRANASAL Q12H 05/13/21 08/10/21 mcg/actuation nasal spray,suspension loratadine 10 mg tablet 10 mg PO DAILY PRN 05/13/21 08/10/21 lisinopril 5 mg tablet 5 mg PO DAILY 07/31/21 08/10/21 furosemide 20 mg tablet 20 mg PO DAILY 08/10/21 08/10/21 Previous Rx's Medication Instructions Recorded apixaban 5 mg tablet (Eliquis) 5 mg PO BID #180 tab 07/20/17 Allergies Allergy/AdvReac Type Severity Reaction Status Date / Time Penicillins AdvReac Intermediate black out Unverified 08/10/21 17:57 gabapentin AdvReac Mild Headache Unverified 08/10/21 17:57 niacin AdvReac Mild turn red Unverified 08/10/21 17:57 General MARY: 3 PFSH All Active Problems (Updated 08/12/21 @ 09:47 by Chasity Welsh NP) Afib (Chronic) Discharge planning issues (Acute) Prerenal azotemia (Acute) Changes in vision (Acute) Altered mental status (Acute) Dehydration (Acute) Heel ulcer (Acute) Cellulitis (Acute) Cellulitis of left ankle (Acute) Blister of left foot (Acute) Hyperglycemia (Acute) Vitreous floaters of right eye (Acute) BRENNEN (acute kidney injury) (Acute) Screening for colorectal cancer (Acute) Medical History Bipolar disorder Chronic schizophrenia Diabetes mellitus, type 2 Non-ST elevation [place] (NSTEMI) Obesity Surgical History Colonoscopy - MAC (01/25/16) 2010 Excision, Lipoma Hx of cholecystectomy Hydrocelectomy Tonsillectomy Family History Mother No problems noted. Father Heart disease Brother Alcohol abuse Social History Smoking/Tobacco Use Status: Current-Occasional Tobacco Type: cigarettes Smoking risk assessment performed?: Yes Alcohol Intake: current Alcohol Intake frequency: holidays/special occasions only Alcohol type: beer and hard liquor Drug use: Current Sobriety Substance use type: does not use Do you feel safe at home: Yes Do you feel safe in your relationship?: Yes
--- NOTE | 2021-08-10 18:15 | DI.RAD_ITS ---
Exam(s) XR CHEST 2V PA LATERAL EXAM: XR CHEST 2V PA LATERAL CLINICAL HISTORY: altered mental status, r/o acute disease TECHNIQUE: COMPARISON: CR XR PORTABLE CHEST AP POST LINE from 05/21/2021 FINDINGS: The heart is enlarged. Lungs appear generally clear. With slight prominence of the pulmonary inters titial markings in the lung bases,less prominent in comparison with prior examination of May. No pleural effusion seen on the lateral film. IMPRESSION: Cardiomegaly, no evidence of acute process. RADIATION DOSE DELIVERED: Total DLP
--- NOTE | 2021-08-10 18:15 | DI.CT_ITS ---
Exam(s) CT HEAD WO EXAM: CT HEAD WO CLINICAL HISTORY: altered mental status, confusion. TECHNIQUE: Imaging Protocol: Axial computed tomography images with coronal and sagittal reformatted images were created and reviewed COMPARISON: CT CT HEAD WO from 05/20/2021 FINDINGS: There are changes of moderate generalized cerebral atrophy.. No evidence of acute intracranial hemorrhage, mass effect, or midline shift. The orbital structures are unremarkable. The temporal bone structures appear intact. Calvarium: Normal. Visualized Paranasal sinuses/Mastoids: Clear. IMPRESSION: No evidence of acute intracranial process.. RADIATION DOSE DELIVERED: 795.26mGy.cm Total DLP 795.26mGy.cm Total DLP !Error CTDIvol DATA REPOSITORY: All CT scans at this facility are submitted to the National Radiology Data Registry (NRDR) Dose Index Registry (DIR) with the [employer] (ACR). RADIATION OPTIMIZATION: All CT scans at this facility use at least one of these dose optimization te chniques: automated exposure control; mA and/or kV adjustment per patient size (includes targeted exa ms where dose is matched to clinical indication); or iterative reconstruction.
[2021-08-10 18:40] LABS: Abs Immature Grans 0.04 10^3/uL (0.0-0.06); Absolute Basophil Count 0.04 10^3/uL (0.0-0.2); Absolute Lymphocyte Count 2.03 10^3/uL (1.2-3.4); Absolute Monocyte Count 0.84 10^3/uL (0.1-0.8); Absolute Neutrophil Count 7.76 10^3/uL (1.2-6.7); Basophils % 0.4; HCT 52.4 % (40.0-50.0); HGB 17.3 g/dL (13.5-17.5); Immature Grans % 0.4; MCH 31.5 pg (27.0-33.0); MCV 95.3 fL (80-95); MPV 11.1 fL (8.0-11.0); Monocytes % 7.8; Neutrophils % 72.4; Nucleated RBC 0 %; Platelet Count 259 10^3/uL (130-400); RDW 12.6 % (11.8-14.1); RDW-SD 44.8 fL; WBC 10.71 10^3/uL (4.4-10.8)
[2021-08-10 18:47] LABS: Lactate 1.3 mmol/L (0.6-1.4)
[2021-08-10 19:01] LABS: ALT 33 U/L (16-63); AST 26 U/L (15-37); Albumin 4.5 g/dL (3.4-5.0); Alkaline Phosphatase 64 U/L (46-116); Anion Gap 17.3 mmol/L (3-11); BUN 29 mg/dL (7-18); Bilirubin, Total 0.8 mg/dL (0.2-1.0); CO2 20.7 mmol/L (21.0-32.0); CREATININE 1.2 mg/dL (0.70-1.30); Chloride 104 mmol/L (98-107); Glucose 123 mg/dL (74-106); Magnesium 2.1 mg/dL (1.8-2.4); Potassium 3.5 mmol/L (3.5-5.1); Sodium 142 mmol/L (136-145); Total Protein 8.7 g/dL (6.4-8.2); Troponin I < 50 ng/L (<or=60)
--- NOTE | 2021-08-10 19:23 | DI.VRAD_ITS ---
PROCEDURE INFORMATION: Exam: CT Head Without Contrast Exam date and time: 08/10/2021 6:20 PM Age: 60 years old Clinical indication: Altered mental status/memory loss TECHNIQUE: Imaging protocol: Computed tomography of the head without contrast. COMPARISON: CT HEAD WO 05/20/2021 10:49 AM FINDINGS: Brain: Negative for intracranial hemorrhage. Moderate cerebral atrophy noted. Negative for midline shift. No specific cortical infarct. Extra-axial space: No evidence of subdural hemorrhage. Cerebral ventricles: No ventriculomegaly. Paranasal sinuses: Visualized sinuses are unremarkable. No fluid levels. Mastoid air cells: Visualized mastoid air cells are well aerated. Bones/joints: Unremarkable. No acute fracture. Soft tissues: Unremarkable. IMPRESSION: Negative for intracranial hemorrhage or other acute intracranial abnormality. Dictated and Authenticated by: Germain Kent MD. Ordering:JAYLIN Benson MD
[2021-08-10] MEDS: Lidocaine 2% Jelly 6 ML SYR (19:30)
--- NOTE | 2021-08-10 19:30 | DI.VRAD_ITS ---
PROCEDURE INFORMATION: Exam: XR Chest Exam date and time: 08/10/2021 6:21 PM Age: 60 years old Clinical indication: Other: AMS TECHNIQUE: Imaging protocol: XR of the chest. Views: 2 views. COMPARISON: CR XR PORTABLE CHEST AP POST LINE 05/21/2021 12:56 PM FINDINGS: Lungs: Mild perihilar and basilar interstitial prominence. No specific consolidation. Pleural spaces: Negative for pneumothorax. Negative for pleural effusion. Heart/Mediastinum: Negative for mediastinal widening. Mild cardiomegaly. Bones/joints: Unremarkable. Soft tissues: Negative for chest wall air. IMPRESSION: 1. Negative for pneumothorax. 2. Mild interstitial infiltrates and/or edema. Dictated and Authenticated by: Germain Kent MD. Ordering:JAYLIN Benson MD
[2021-08-10] MEDS: Normal Saline 1,000 ML 1000 ML IV (19:45)
[2021-08-10 19:49] LABS: Bilirubin Moderate (Negative); Blood Trace-intact (Negative); Clarity Clear (Clear); Glucose Negative (Negative); Ketones 40 mg/dL (Negative); Leukocyte Esterase Negative (Negative); Nitrite Negative (Negative); Specific Gravity >= 1.030 (1.005-1.025); Urobilinogen 0.2 EU/dL (Up TO 0.2); pH 5.5 (5-8)
[2021-08-10 20:09] LABS: Bacteria Negative HPF (Negative); C & S Indicated? No; Casts Negative LPF (Negative); Crystals Negative HPF (Negative); Epithelial Cells Few HPF (Negative); Mucus Negative (Negative); Other Cells Negative (Negative); RBC 0-2 HPF (0-2); WBC Negative HPF (0-5)
[2021-08-10 20:18] LABS: Tricyclic Antidepressants Negative (Negative)
[2021-08-10 20:22] LABS: Source Nasal/Nares
[2021-08-10 20:22] LABS: *AMPHETAMINES SCREEN URINE Negative (Negative); *BARBITURATES SCREEN URINE Negative (Negative); *BENZODIAZEPINES SCREEN URINE Negative (Negative); Cannabinoids THC Negative (Negative); Cocaine Screen,Urine Negative (Negative); METHADONE URINE SCREEN Negative (Negative); OPIATES URINE SCREEN Negative (Negative)
[2021-08-10 20:23] LABS: BE (Venous) -4 mmol/L (-2-3); HCO3 (Venous) 22 mmol/L (23-28); O2 Sat (Venous) 68 %; TCO2 (Venous) 20 mmol/L (24-29); pCO2 (Venous) 43 mmHg (41-51); pH (Venous) 7.32 (7.31-7.41); pO2 (Venous) 38 mmHg
[2021-08-10 20:40] LABS: Salicylate 5.4 mg/dL (<2.8)
[2021-08-10 20:41] LABS: Acetaminophen < 2 ug/mL (10-30)
[2021-08-10 21:12] LABS: COVID-19 PCR Negative (Negative)
[2021-08-10 21:13] LABS: ETHANOL BLOOD < 3.0 mg/dL (<10)
--- NOTE | 2021-08-10 21:47 | HPE_ITS ---
Date of service: 08/10/21 Time of Service: 21:47 Assessment and Plan Assessment and plan (1) Altered mental status: Status: Acute Assessment and plan: I suspect that his altered mental status is secondary to his underlying psychiatric condition not being under treatment for being off his clozapine for the last few days. This also may have been exacerbated by his dehydration. However he is not having any focal lateralizing signs of a stroke and a CT scan of his head showed no acute structural intracranial pathology. At this point I think he needs rehydration and resumption of his home medications. I will ask [facility] pharmacy to look into obtaining his clozaril from [facility]. As the patient had a CBC today that did not demonstrate any leukopenia or anemia or thrombocytopenia cannot see any reason why [facility] would not allow him to have his clozaril. We will resume his Depakote. It would be worth having a discussion on Thursday with the patient's psychiatrist Dr. Amezquita to see if perhaps another antipsychotic medication might be a better choice for Mr. Hathaway particularly if Mr. Hathaway is not to be compliant about getting his lab work done on a regular basis. (2) Chronic schizophrenia: Assessment and plan: As above (3) Bipolar disorder: Assessment and plan: As above (4) Dehydration: Status: Acute Assessment and plan: Continue IV fluid hydration overnight. I will run another liter of LR overnight and repeat his labs in the morning. He has had a history of chronic leg edema and his PCP had put him on Lasix to help with that edema therefore I do not want to overdo the IV fluids as long as he is able to eat and drink adequately. I did repeat his BMP tonight and his anion gap is come down to 11.9 his BUN is 27 his creatinine is 1.1. CK was 409 and therefore I think he needs further fluids and I will recheck his CK in the morning. (5) Heel ulcer: Status: Acute Assessment and plan: We will get a wound care consult tomorrow. (6) Prerenal azotemia: Status: Acute Assessment and plan: As above regarding treatment of his dehydration with continued IV fluids of LR (7) Diabetes mellitus, type 2: Assessment and plan: In light of his acute azotemia I withheld his Metformin but we will cover him with NovoLog per insulin sensitive scale and monitor his blood sugars before meals and at bedtime. History of Present Illness History of Present Illness Chief Complaint: confused Narrative: Judd Hathaway is a 60 yr old male w/ Hx of schizophrenia, chronic atrial fibrill ation, NIDDM, bipolar disorder who is vaccinated against COVID-19 yet developed COVID-19 pneumonia complicated by rhabdomyolysis, cellulitis of his left ankle and blister on his left heel. He was treated for the COVID pneumonia w/ steroids, remdesivir and baricitinib and his cellulitis was treated w/ iv antibiotics and then oral antibiotics. He has been followed in the surgical clinic by Cecy Mcnamara for his wounds. He was brought to the ED today via EMS when his landlord called EMS due the patient being confused, having flight of ideas/wandering speech, found to be naked from waist down and unkempt. Patient was evaluated in the ED by Dr. Borges who did routine labs, CT head and CXR. Labs were remarkable for prerenal azotemia (BUN 29, creatinine 1.2), elevated AG 17 (HCO3 20),CBC demonstrated polycythemic changes (Hb17, Hct 52 probably from dehydration) but no leukocytosis and no neutropenia nor any thrombocytopenia. Lactate was normal at 1.3. VBG was remarkable for low CO2 20, but low normal venous pH 7.32. Blood cultures were taken but no antibiotics were given as he had no fever and no evidence for acute infection (although he has chronic heel ulcer). CXR reported as demonstrating mild interstitial infiltrates and/or edema. Troponin I was normal. EKG demonstrates atrial fibrillation but controlled rate and no ischemic changes. UA was negative for bacteria, leukocyte esterase or nitrites but SG>1.030, 40 mg/dL ketones, 30 mg/dL protein, and tace of blood, mod. bilirubin but only 0-2 RBC and no WBC. Since admission I have ordered procalcitonin, CK, and 2nd troponin I. Repeat troponin was normal. procalcitonin was normal. CK is mildly elevated at 400. Review of his chart reveals that his pharmacy, [facility] would not refill his clozaril d/t his not getting surveillance labs (patient is suppose to get monthly CBC to monitor for agranulocytosis). Last CBC prior to today was on 07/04 and his last fill of his clozapine was on 07/08/21. [facility] All Active Problems (Updated 08/10/21 @ 23:43 by Brice Hickman) Prerenal azotemia (Acute) Changes in vision (Acute) Altered mental status (Acute) Dehydration (Acute) Heel ulcer (Acute) Cellulitis (Acute) Cellulitis of left ankle (Acute) Blister of left foot (Acute) Hyperglycemia (Acute) Vitreous floaters of right eye (Acute) BRENNEN (acute kidney injury) (Acute) Screening for colorectal cancer (Acute) Medical History Bipolar disorder Chronic schizophrenia Diabetes mellitus, type 2 Non-ST elevation [place] (NSTEMI) Obesity Surgical History Colonoscopy - MAC (01/25/16) 2010 Excision, Lipoma Hx of cholecystectomy Hydrocelectomy Tonsillectomy Family History Mother No problems noted. Father Heart disease Brother Alcohol abuse Social History Smoking/Tobacco Use Status: Current-Occasional Tobacco Type: cigarettes Smoking risk assessment performed?: Yes Alcohol Intake: current Alcohol Intake frequency: holidays/special occasions only Alcohol type: beer and hard liquor Drug use: Current Sobriety Substance use type: does not use Do you feel safe at home: Yes Do you feel safe in your relationship?: Yes Meds Allergies and Home Medications Allergies Allergy/AdvReac Type Severity Reaction Status Date / Time Penicillins AdvReac Intermediate black out Unverified 08/10/21 17:57 gabapentin AdvReac Mild Headache Unverified 08/10/21 17:57 niacin AdvReac Mild turn red Unverified 08/10/21 17:57 Home Medications Medication Instructions Recorded Confirmed Type atorvastatin 10 mg tablet (Lipitor) 10 mg PO QPM 01/23/16 08/10/21 History divalproex 500 mg tablet,extended 2,000 mg PO HS 01/23/16 08/10/21 History release 24 hr melatonin 3 mg tablet,extended 3 mg PO HS PRN 01/23/16 08/10/21 History release thyroid (pork) 90 mg tablet 90 mg PO QAM 01/23/16 08/10/21 History ([place] Thyroid) apixaban 5 mg tablet (Eliquis) 5 mg PO BID #180 tab 07/20/17 08/10/21 Rx clozapine 100 mg tablet 300 mg PO HS tab-cap 07/28/17 08/10/21 History sennosides 8.6 mg tablet (senna) 8.6 mg PO BID PRN 1 Days 07/28/17 08/10/21 History albuterol sulfate 90 mcg/actuation 2 puff INHALATION Q4H PRN 03/27/19 08/10/21 History aerosol inhaler (Ventolin HFA) metformin 1,000 mg tablet 1,000 mg PO BID 03/27/19 08/10/21 History ropinirole 1 mg tablet 1 mg PO DIRECTED 03/27/19 08/10/21 History docusate sodium 100 mg capsule 200 mg PO BID PRN 11/13/20 08/10/21 History calcium carbonate 500 mg calcium 500 mg PO TID 05/13/21 08/10/21 History (1,250 mg) chewable tablet fluticasone propionate 50 1 spray INTRANASAL Q12H 05/13/21 08/10/21 History mcg/actuation nasal spray,suspension loratadine 10 mg tablet 10 mg PO DAILY PRN 05/13/21 08/10/21 History lisinopril 5 mg tablet 5 mg PO DAILY 07/31/21 08/10/21 History furosemide 20 mg tablet 20 mg PO DAILY 08/10/21 08/10/21 History Exam Narrative Exam Narrative: Middle-aged white male sitting up in bed watching TV. He is alert but he is only oriented to himself. His conversation is very disjointed and answers questions in a non sequitur fashion and cannot finish a thought without moving on to something that is totally unrelated. HEENT is remarkable for dry mucous membranes. Teeth are in poor repair. Extraocular motions intact no scleral icterus Neck supple nontender no meningismus normal carotid pulses no bruits no thyromegaly no cervical adenopathy Lungs are clear to auscultation no wheezes rales or rhonchi Heart is irregularly irregular at a controlled rate Abdomen is nondistended normal bowel sounds soft and nontender no organomegaly no bruits Extremities lower legs without calf swelling or tenderness. He has some chronic venous darkening of the skin over the left tibia. Patient has a ulcer over his left heel with some dry crusted scaly skin around the wound and eschar at the base of the wound purulent drainage. Pedal pulses are intact Results Labs Result diagrams: 08/10/21 18:30 08/10/21 22:00 Labs: Laboratory Results - last 24 hr 08/10/21 08/10/21 08/10/21 18:30 18:30 18:30 WBC 10.71 RBC 5.50 Hgb 17.3 Hct 52.4 H MCV 95.3 H MCH 31.5 MCHC 33.0 RDW 12.6 Plt Count 259 MPV 11.1 H Immature Gran % 0.4 Neutrophils % 72.4 Lymphocytes % 19.0 Monocytes % 7.8 Eosinophils % 0.0 Basophils % 0.4 Nucleated RBC % 0 Absolute Neutrophils 7.76 H Absolute Lymphocytes 2.03 Absolute Monocytes 0.84 H Absolute Eosinophils 0.00 Absolute Basophils 0.04 VBG pH VBG pCO2 VBG pO2 VBG HCO3 VBG Total CO2 VBG O2 Saturation VBG Base Excess VBG Lactate 1.3 Sodium 142 Potassium 3.5 Chloride 104 Carbon Dioxide 20.7 L Anion Gap 17.3 H BUN 29 H Creatinine 1.2 Estimated GFR/1.73 m2 >= 60.00 Glucose 123 H Calcium 10.0 Magnesium 2.1 Total Bilirubin 0.8 AST 26 ALT 33 Alkaline Phosphatase 64 Troponin I < 50 Total Protein 8.7 H Albumin 4.5 Urine Color Urine Clarity Urine pH Ur Specific [place] Urine Protein Urine Ketones Urine Blood Urine Nitrite Urine Bilirubin Urine Urobilinogen Ur Leukocyte Esterase Urine RBC Urine WBC Ur Epithelial Cells Urine Crystals Urine Bacteria Urine Casts Urine Mucus Urine Other Ur Culture Indicated? Urine Glucose Salicylates Urine Opiates Screen Urine Methadone Screen Acetaminophen Ur Barbiturates Screen Ur Tricyclics Screen Ur Amphetamines Screen U Benzodiazepines Scrn Urine Cocaine Screen Ur THC Screen Ethyl Alcohol COVID-19 Source SARS-CoV-2 (PCR) 08/10/21 08/10/21 08/10/21 19:35 19:35 19:55 WBC RBC Hgb Hct MCV MCH MCHC RDW Plt Count MPV Immature Gran % Neutrophils % Lymphocytes % Monocytes % Eosinophils % Basophils % Nucleated RBC % Absolute Neutrophils Absolute Lymphocytes Absolute Monocytes Absolute Eosinophils Absolute Basophils VBG pH VBG pCO2 VBG pO2 VBG HCO3 VBG Total CO2 VBG O2 Saturation VBG Base Excess VBG Lactate Sodium Potassium Chloride Carbon Dioxide Anion Gap BUN Creatinine Estimated GFR/1.73 m2 Glucose Calcium Magnesium Total Bilirubin AST ALT Alkaline Phosphatase Troponin I Total Protein Albumin Urine Color Yellow Urine Clarity Clear Urine pH 5.5 Ur Specific [place] >= 1.030 H Urine Protein 30 H Urine Ketones 40 H Urine Blood Trace-intact H Urine Nitrite Negative Urine Bilirubin Moderate H Urine Urobilinogen 0.2 Ur Leukocyte Esterase Negative Urine RBC 0-2 Urine WBC Negative Ur Epithelial Cells Few Urine Crystals Negative Urine Bacteria Negative Urine Casts Negative Urine Mucus Negative Urine Other Negative Ur Culture Indicated? No Urine Glucose Negative Salicylates 5.4 Urine Opiates Screen Negative Urine Methadone Screen Negative Acetaminophen < 2 Ur Barbiturates Screen Negative Ur Tricyclics Screen Negative Ur Amphetamines Screen Negative U Benzodiazepines Scrn Negative Urine Cocaine Screen Negative Ur THC Screen Negative Ethyl Alcohol COVID-19 Source SARS-CoV-2 (PCR) 08/10/21 08/10/21 08/10/21 19:55 20:17 20:20 WBC RBC Hgb Hct MCV MCH MCHC RDW Plt Count MPV Immature Gran % Neutrophils % Lymphocytes % Monocytes % Eosinophils % Basophils % Nucleated RBC % Absolute Neutrophils Absolute Lymphocytes Absolute Monocytes Absolute Eosinophils Absolute Basophils VBG pH 7.32 VBG pCO2 43 VBG pO2 38 VBG HCO3 22 L VBG Total CO2 20 L VBG O2 Saturation 68 VBG Base Excess -4 L VBG Lactate Sodium Potassium Chloride Carbon Dioxide Anion Gap BUN Creatinine Estimated GFR/1.73 m2 Glucose Calcium Magnesium Total Bilirubin AST ALT Alkaline Phosphatase Troponin I Total Protein Albumin Urine Color Urine Clarity Urine pH Ur Specific [place] Urine Protein Urine Ketones Urine Blood Urine Nitrite Urine Bilirubin Urine Urobilinogen Ur Leukocyte Esterase Urine RBC Urine WBC Ur Epithelial Cells Urine Crystals Urine Bacteria Urine Casts Urine Mucus Urine Other Ur Culture Indicated? Urine Glucose Salicylates Urine Opiates Screen Urine Methadone Screen Acetaminophen Ur Barbiturates Screen Ur Tricyclics Screen Ur Amphetamines Screen U Benzodiazepines Scrn Urine Cocaine Screen Ur THC Screen Ethyl Alcohol < 3.0 COVID-19 Source Nasal/Nares SARS-CoV-2 (PCR) Negative Last Vital Signs Temp 36.1 C L 08/10/21 21:03 Pulse 70 08/10/21 21:03 Resp 16 08/10/21 21:03 BP 116/76 08/10/21 21:03 Pulse Ox 98 08/10/21 21:03
[2021-08-10 22:23] LABS: Anion Gap 11.9 mmol/L (3-11); BUN 27 mg/dL (7-18); CO2 24.1 mmol/L (21.0-32.0); CREATININE 1.1 mg/dL (0.70-1.30); Calcium 9.2 mg/dL (8.5-10.1); Chloride 107 mmol/L (98-107); Creatine Kinase 409 U/L (39-308); Glucose 109 mg/dL (74-106); Potassium 4.1 mmol/L (3.5-5.1); Sodium 143 mmol/L (136-145); Troponin I < 50 ng/L (<or=60)
[2021-08-10 23:00] LABS: Procalcitonin < 0.1 ng/mL
[2021-08-10] MEDS: Lactated Ringers 1,000 ML 150 ML IV (23:28)
[2021-08-10] MEDS: Apixaban 5 MG TAB PO (23:28)
[2021-08-10] MEDS: Melatonin 3 MG TAB PO (23:28)
[2021-08-11] VITALS (7 sets, daily range): BP systolic 112–119; BP diastolic 66–78; PULSE 47–71; RESP 12–20; TEMP 36.5–36.7; O2SAT 95–97
[2021-08-11] MEDS: Acetaminophen 325 MG TAB PO (02:36)
[2021-08-11 07:32] LABS: Anion Gap 12.6 mmol/L (3-11); BUN 25 mg/dL (7-18); CO2 20.4 mmol/L (21.0-32.0); CREATININE 0.8 mg/dL (0.70-1.30); Calcium 8.8 mg/dL (8.5-10.1); Chloride 105 mmol/L (98-107); Glucose 187 mg/dL (74-106); Potassium 3.5 mmol/L (3.5-5.1); Sodium 138 mmol/L (136-145); TSH (W/Ref FT4) 0.99 uIU/mL (0.36-3.74)
[2021-08-11] MEDS: Calcium Carbonate *TUMS* 500 MG CHEW CH ×3 (08:59→19:30)
[2021-08-11] MEDS: Apixaban 5 MG TAB PO ×2 (08:59→19:29)
[2021-08-11] MEDS: Fluticasone NASAL SPRAY 16 GM BTL NS (09:02)
--- NOTE | 2021-08-11 10:11 | INITIAL_ITS ---
- If Service Date Differs Date of service: 08/11/21 Time of Service: 10:11 Care Management Initial Assess REASON FOR HOSPITALIZATION:: Altered mental status, dehydration PAST MEDICAL HISTORY/PAST SURGICAL HISTORY:: All Active Problems. Prerenal azotemia (Acute). Changes in vision (Acute). Altered mental status (Acute). Dehydration (Acute). Heel ulcer (Acute). Cellulitis (Acute). Cellulitis of left ankle (Acute). Blister of left foot (Acute). Hyperglycemia (Acute). Vitreous floaters of right eye (Acute). BRENNEN (acute kidney injury) (Acute). Screening for colorectal cancer (Acute). Medical History. Bipolar disorder. Chronic schizophrenia. Diabetes mellitus, type 2. Non-ST elevation [place] (NSTEMI). Obesity. Surgical History. Colonoscopy - MAC (01/25/16). 2010. Excision, Lipoma. Hx of cholecystectomy. Hydrocelectomy. Tonsillectomy PREVIOUS FUNCTIONAL STATUS/SOCIAL/FAMILY SUPPORTS:: Judd lives alone in an apartment in [facility]. He is a [employer] client, although he could not confirm his case reviewer's name. He has daily medication drops through [employer] and [facility], but is independent with his ADL's. CURRENT FUNCTIONAL STATUS:: Judd was sitting up in his bed when CM met with him. He was alert and very talkative, and he presented with a flight of ideas, and pressured speech. CM was not able to hold a conversation, although he did, at times, answer questions appropriately. He stated that he has an appointment at [facility] on 08/16/21 at 1:30, although this will have to be confirmed. Per report, his medication was stopped because he did not comply with labs that were ordered. CM will recommend RN to monitor his medication managment and labs. CM will reach out to [employer] tomorrow to determine their level of involvement in his appointments. ([employer] not available on weekends). would also like to connect with Dr. Amezquita on Thursday to discuss his medication management, specifically the titration of his Clozaril. He may benefit from a short stay at the Care Bed while adjusting his meds. CM will continue to follow. ADVANCE DIRECTIVES:: On File, [facility] is Chika Enamorado Has patient been provided with info about the portal/API?: Yes Did the patient sign up for the portal?: No CODE STATUS:: Full Code INSURANCE COVERAGE / FINANCIAL ISSUES:: [employer] CURRENT HOME/COMMUNITY SERVICES/EQUIPMENT:: Judd has support in the community through [facility] [employer], including medication management. He also receives Meals on Wheels. PRIMARY CARE PHYSICIAN:: Nisha Carrillo POTENTIAL DISCHARGE NEEDS:: Coordination with [employer], follow up appointments. PATIENT/FAMILY EDUCATION NEEDS:: Review discharge instructions, limitations and plan to follow up with community providers. Ask me three. ANTICIPATED BARRIERS TO DISCHARGE:: None identified at this time. TRANSPORTATION:: [facility] vs [employer] private vehicle. PLAN:: Anticipate Judd will return home when medically cleared by provider. He will follow up with his PCP and discharge plan of care. He may benefit from services upon discharge. He will be transported home via private vehicle by [facility] vs [employer]. [employer] will be contacted prior to his discharge to coordinate his medication management. CM will continue to follow.
--- NOTE | 2021-08-11 13:19 | W.PM.PROGNOT ---
Date of Service Date of service: 08/11/21 Time of Service: 13:19 Assessment and Plan Assessment and plan (1) Altered mental status: Status: Acute Assessment and plan: Likely altered mental status is secondary to his underlying psychiatric condition and being off his clozapine for the last few days. This also may have been exacerbated by his dehydration. CBC completed and will be started back on Clozaril with titrating dose per pharmacy recommendations. discussion on Thursday with the patient's psychiatrist Dr. Amezquita to see if perhaps another antipsychotic medication might be a better choice for Mr. Hathaway particularly if Mr. Hathaway is not to be compliant about getting his lab work done on a regular basis, and if not how to titrate moving forward. (2) Chronic schizophrenia: Assessment and plan: clozaril restarted on lower dosing, titrate per pharmacy recommendations (3) Bipolar disorder: Assessment and plan: As above (4) Dehydration: Status: Acute Assessment and plan: received IV fluids overnight. labs improved. taking PO so will stop fluids. (5) Heel ulcer: Status: Acute Assessment and plan: wound care consult (6) Prerenal azotemia: Status: Acute Assessment and plan: received IV fluids of LR (7) Diabetes mellitus, type 2: Assessment and plan: hold Metformin while hospitalized. continue to cover him with NovoLog per insulin sensitive scale and monitor his blood sugars before meals and at bedtime. (8) Discharge planning issues: Status: Acute Assessment and plan: case management following may be appropriate for care bed discussed with DR Lopez Subjective Subjective Patient reports: no new complaints Interval history since last seen: remains disorganized, unable to maintain a conversation, flight of ideas, oriented to person only. unable to provide history Exam Const General: cooperative, comfortable, no acute distress, disheveled, frail appearing and ill appearing (older than stated age) chronically Nutritional Appearance: average body habitus Orientation: alert, awake and oriented to person [facility] Head: normal to inspection Teeth and gingiva: edentulous (many missing -3-8-10, 26 25 24 23) and poor dentition Chest Chest: normal inspection of the chest Resp Effort & Inspection: normal respiratory effort Auscultation: clear to auscultation bilaterally Cardio Rate: regular rate Rhythm: regular rhythm Skin Rashes: no rashes Neuro General: patient alert, patient awake, moves all extremities, no focal motor deficits and patient confused Cognition: abnormal cognition Motor: muscle tone normal throughout Extrem General: normal to inspection, full ROM and no pedal edema Psych Appearance: disheveled Speech and Movement: restless Attitude: cooperative Thought Process: confabulating, flight of ideas, illogical and tangential Insight: poor Judgment: poor Objective Last Vital Signs Temp 36.6 C 08/11/21 06:26 Pulse 71 08/11/21 06:26 Resp 20 08/11/21 06:26 BP 113/66 08/11/21 06:26 Pulse Ox 97 08/11/21 06:26 Laboratory Results - last 24 hr 08/10/21 08/10/21 08/10/21 18:30 18:30 18:30 WBC 10.71 RBC 5.50 Hgb 17.3 Hct 52.4 H MCV 95.3 H MCH 31.5 MCHC 33.0 RDW 12.6 Plt Count 259 MPV 11.1 H Immature Gran % 0.4 Neutrophils % 72.4 Lymphocytes % 19.0 Monocytes % 7.8 Eosinophils % 0.0 Basophils % 0.4 Nucleated RBC % 0 Absolute Neutrophils 7.76 H Absolute Lymphocytes 2.03 Absolute Monocytes 0.84 H Absolute Eosinophils 0.00 Absolute Basophils 0.04 VBG pH VBG pCO2 VBG pO2 VBG HCO3 VBG Total CO2 VBG O2 Saturation VBG Base Excess VBG Lactate 1.3 Sodium 142 Potassium 3.5 Chloride 104 Carbon Dioxide 20.7 L Anion Gap 17.3 H BUN 29 H Creatinine 1.2 Estimated GFR/1.73 m2 >= 60.00 Glucose 123 H Calcium 10.0 Magnesium 2.1 Total Bilirubin 0.8 AST 26 ALT 33 Alkaline Phosphatase 64 Creatine Kinase Troponin I < 50 Total Protein 8.7 H Albumin 4.5 Procalcitonin TSH Urine Color Urine Clarity Urine pH Ur Specific [place] Urine Protein Urine Ketones Urine Blood Urine Nitrite Urine Bilirubin Urine Urobilinogen Ur Leukocyte Esterase Urine RBC Urine WBC Ur Epithelial Cells Urine Crystals Urine Bacteria Urine Casts Urine Mucus Urine Other Ur Culture Indicated? Urine Glucose Salicylates Urine Opiates Screen Urine Methadone Screen Acetaminophen Ur Barbiturates Screen Ur Tricyclics Screen Ur Amphetamines Screen U Benzodiazepines Scrn Urine Cocaine Screen Ur THC Screen Ethyl Alcohol COVID-19 Source SARS-CoV-2 (PCR) 08/10/21 08/10/21 08/10/21 19:35 19:35 19:55 WBC RBC Hgb Hct MCV MCH MCHC RDW Plt Count MPV Immature Gran % Neutrophils % Lymphocytes % Monocytes % Eosinophils % Basophils % Nucleated RBC % Absolute Neutrophils Absolute Lymphocytes Absolute Monocytes Absolute Eosinophils Absolute Basophils VBG pH VBG pCO2 VBG pO2 VBG HCO3 VBG Total CO2 VBG O2 Saturation VBG Base Excess VBG Lactate Sodium Potassium Chloride Carbon Dioxide Anion Gap BUN Creatinine Estimated GFR/1.73 m2 Glucose Calcium Magnesium Total Bilirubin AST ALT Alkaline Phosphatase Creatine Kinase Troponin I Total Protein Albumin Procalcitonin TSH Urine Color Yellow Urine Clarity Clear Urine pH 5.5 Ur Specific [place] >= 1.030 H Urine Protein 30 H Urine Ketones 40 H Urine Blood Trace-intact H Urine Nitrite Negative Urine Bilirubin Moderate H Urine Urobilinogen 0.2 Ur Leukocyte Esterase Negative Urine RBC 0-2 Urine WBC Negative Ur Epithelial Cells Few Urine Crystals Negative Urine Bacteria Negative Urine Casts Negative Urine Mucus Negative Urine Other Negative Ur Culture Indicated? No Urine Glucose Negative Salicylates 5.4 Urine Opiates Screen Negative Urine Methadone Screen Negative Acetaminophen < 2 Ur Barbiturates Screen Negative Ur Tricyclics Screen Negative Ur Amphetamines Screen Negative U Benzodiazepines Scrn Negative Urine Cocaine Screen Negative Ur THC Screen Negative Ethyl Alcohol COVID-19 Source SARS-CoV-2 (PCR) 08/10/21 08/10/21 08/10/21 19:55 20:17 20:17 WBC RBC Hgb Hct MCV MCH MCHC RDW Plt Count MPV Immature Gran % Neutrophils % Lymphocytes % Monocytes % Eosinophils % Basophils % Nucleated RBC % Absolute Neutrophils Absolute Lymphocytes Absolute Monocytes Absolute Eosinophils Absolute Basophils VBG pH 7.32 VBG pCO2 43 VBG pO2 38 VBG HCO3 22 L VBG Total CO2 20 L VBG O2 Saturation 68 VBG Base Excess -4 L VBG Lactate Sodium Potassium Chloride Carbon Dioxide Anion Gap BUN Creatinine Estimated GFR/1.73 m2 Glucose Calcium Magnesium Total Bilirubin AST ALT Alkaline Phosphatase Creatine Kinase Troponin I Total Protein Albumin Procalcitonin < 0.1 TSH Urine Color Urine Clarity Urine pH Ur Specific [place] Urine Protein Urine Ketones Urine Blood Urine Nitrite Urine Bilirubin Urine Urobilinogen Ur Leukocyte Esterase Urine RBC Urine WBC Ur Epithelial Cells Urine Crystals Urine Bacteria Urine Casts Urine Mucus Urine Other Ur Culture Indicated? Urine Glucose Salicylates Urine Opiates Screen Urine Methadone Screen Acetaminophen Ur Barbiturates Screen Ur Tricyclics Screen Ur Amphetamines Screen U Benzodiazepines Scrn Urine Cocaine Screen Ur THC Screen Ethyl Alcohol < 3.0 COVID-19 Source SARS-CoV-2 (PCR) 08/10/21 08/10/21 08/11/21 20:20 22:00 06:45 WBC RBC Hgb Hct MCV MCH MCHC RDW Plt Count MPV Immature Gran % Neutrophils % Lymphocytes % Monocytes % Eosinophils % Basophils % Nucleated RBC % Absolute Neutrophils Absolute Lymphocytes Absolute Monocytes Absolute Eosinophils Absolute Basophils VBG pH VBG pCO2 VBG pO2 VBG HCO3 VBG Total CO2 VBG O2 Saturation VBG Base Excess VBG Lactate Sodium 143 138 Potassium 4.1 3.5 Chloride 107 105 Carbon Dioxide 24.1 20.4 L Anion Gap 11.9 H 12.6 H BUN 27 H 25 H Creatinine 1.1 0.8 Estimated GFR/1.73 m2 >= 60.00 >= 60.00 Glucose 109 H 187 H D Calcium 9.2 8.8 Magnesium Total Bilirubin AST ALT Alkaline Phosphatase Creatine Kinase 409 H Troponin I < 50 Total Protein Albumin Procalcitonin TSH 0.99 Urine Color Urine Clarity Urine pH Ur Specific [place] Urine Protein Urine Ketones Urine Blood Urine Nitrite Urine Bilirubin Urine Urobilinogen Ur Leukocyte Esterase Urine RBC Urine WBC Ur Epithelial Cells Urine Crystals Urine Bacteria Urine Casts Urine Mucus Urine Other Ur Culture Indicated? Urine Glucose Salicylates Urine Opiates Screen Urine Methadone Screen Acetaminophen Ur Barbiturates Screen Ur Tricyclics Screen Ur Amphetamines Screen U Benzodiazepines Scrn Urine Cocaine Screen Ur THC Screen Ethyl Alcohol COVID-19 Source Nasal/Nares SARS-CoV-2 (PCR) Negative
--- NOTE | 2021-08-11 14:25 | WOUNDCONS ---
- If Service Date Differs Date of service: 08/11/21 Time of Service: 13:45 Wound Initial Evaluation Narrative: Patient is a 60 YOM. He is seen here for AMS, Rhabdomylosis. He has a hx significant for Chronic A-fib, NIDDM, and mental health disorders with a past history of non compliance of surveillance labs. Patient did state he is seen out patient by Cecy Mcnamara, but said he has missed some appointments. He is unable to sign a consent, but he verbally consents to treatment as witnessed by myself, and his floor nurse Devi Jackman. His H&P, labs, allergies, and other pertinent information were reviewed. - Wound Left Foot Wound Type: Diabetic Ulcer, Other (left heel) Pressure Ulcer Stage: Eschar/Unstageable Wound General Appearance: Blackened, Necrotic, Unapproximated Wound Bed Greatest Portion: Black (Eschar) Wound Bed Lesser Portion: Blanched/Dull Wound Surrounding Tissue Appearance: Blanched/Dull Percent of Wound Bed Granulated/Red: 0 Percent of Wound Bed Slough/Yellow: 0 Percent of Wound Bed Eschar/Black: 100 Wound Length: 1.1 cm Wound Width: 1.3 cm Wound Depth: 0.3 cm (at least) Wound Drainage Amount: Minimal Wound Drainage Odor: None/Absent Wound Drainage Description: Brown Wound Topical Solution/Irrigant: Saline Irrigant Wound Debridement Method: Gauze Wound Debridement Result: Necrotic Remains Wound Debridement Amount of Tissue Removed: Minimal - Circulation, Sensation, Motion Peripheral Pulse Strength: Normal Capillary Refill: Less than 3 seconds Sensation Description: Within Normal Limits (patient denied neuropathy, stated he has full sensation) Skin Temperature: Warm Skin Color: Normal - Pain Pain Level: 0 Pain Scale Used: Visual Analog Scale 0-10 Diabetic heel injury, patient stated he has missed care appointments. He stated he is willing to offload pressure. - Photo Photo: - Treatment/Dressing Change Topicals/Ointments: Anasept Gel Cleanse With: Cleanser with Surfactant Dressing Types: Mepilex w/Border - Recomendation Recomendation:: Clean wound with Equos spray, then pat dry. Apply a nickel thick layer of Anasept gel to the wound bed. Cover with Mepilex border. Change every 3 days or PRN. Offload pressure. Physcian/Nurse Practioner Notified: Yes (Odalys Johns NP) Treatment Time - Time Total Time Spent with Patient: 45 - Patient Will be Seen Weekly Treatment: 2x/wk - For: For:: 1 week
[2021-08-11] MEDS: rOPINIRole 1 MG TAB PO (15:37)
[2021-08-11] MEDS: Divalproex Sodium 500 MG TAB.ER.24H 2000 MG PO (15:38)
[2021-08-11 17:06] LABS: Osmolality Serum 306 mOsm/kg (275-295)
[2021-08-11] MEDS: Insulin Aspart 300 UNITS/3 ML PEN SC (17:17)
[2021-08-11] MEDS: Atorvastatin 10 MG TAB PO (19:28)
[2021-08-11] MEDS: Normal Saline Flush 10 ML SYR IVP (19:31)
[2021-08-12] VITALS (10 sets, daily range): BP systolic 111–133; BP diastolic 68–86; PULSE 55–96; RESP 16–18; TEMP 36–36.7; O2SAT 95–98
[2021-08-12] MEDS: Calcium Carbonate *TUMS* 500 MG CHEW CH ×3 (07:29→20:10)
[2021-08-12] MEDS: Fluticasone NASAL SPRAY 16 GM BTL NS (07:29)
[2021-08-12] MEDS: Apixaban 5 MG TAB PO ×2 (07:30→20:09)
[2021-08-12 07:39] LABS: Abs Immature Grans 0.03 10^3/uL (0.0-0.06); Absolute Basophil Count 0.05 10^3/uL (0.0-0.2); Absolute Eosinophil Count 0.06 10^3/uL (0.0-0.7); Absolute Monocyte Count 0.66 10^3/uL (0.1-0.8); Absolute Neutrophil Count 5.24 10^3/uL (1.2-6.7); Basophils % 0.6; Eosinophils % 0.7; HCT 50.8 % (40.0-50.0); HGB 16.8 g/dL (13.5-17.5); Immature Grans % 0.4; Lymphocytes % 29.3; MCH 31.1 pg (27.0-33.0); MCHC 33.1 % (32.0-36.0); MCV 94.1 fL (80-95); MPV 11.2 fL (8.0-11.0); Monocytes % 7.7; Neutrophils % 61.3; Nucleated RBC 0 %; Platelet Count 247 10^3/uL (130-400); RDW 12.5 % (11.8-14.1); WBC 8.54 10^3/uL (4.4-10.8)
[2021-08-12 07:52] LABS: Anion Gap 13.8 mmol/L (3-11); CO2 21.2 mmol/L (21.0-32.0); CREATININE 0.9 mg/dL (0.70-1.30); Calcium 9.5 mg/dL (8.5-10.1); Chloride 107 mmol/L (98-107); Glucose 123 mg/dL (74-106); Magnesium 1.9 mg/dL (1.8-2.4); Potassium 3.9 mmol/L (3.5-5.1); Sodium 142 mmol/L (136-145)
[2021-08-12 07:55] LABS: BUN 19 mg/dL (7-18)
--- NOTE | 2021-08-12 10:04 | PDOC.CMPRO ---
- If Service Date Differs Date of service: 08/12/21 Time of Service: 10:04 Care Management Progress Note S/O: CM provided coordination support for Candice, [employer] and Dr. Oshea's psychiatrist to consult re: medication recommendations and discharge planning. MDs decided Judd would be best served at Crisis Bed where medication changes could be closely monitored. Referral sent to Care Bed, awaiting determination. CM continues to follow. A: 60 year old male admitted to [facility] 08/10/21 P: Judd will return home when medically cleared by provider. He will follow up with his PCP and discharge plan of care. He may benefit from services upon discharge. He will be transported home via private vehicle by [facility] vs [employer] T[employer] DRIVER. W[employer] T[employer]ER DRIVER will be contacted prior to his discharge to coordinate his medication management. CM will continue to follow.
--- NOTE | 2021-08-12 10:37 | W.PM.PROGNOT ---
Date of Service Date of service: 08/12/21 Time of Service: 09:50 Assessment and Plan Assessment and plan (1) Altered mental status: Start date: 08/12/21 Start time: 10:00 Status: Acute Assessment and plan: Likely altered mental status is secondary to his underlying psychiatric condition and being off his clonzapine for the last few days. Could have also exacerbated dehydration Restarted back on clonazpine. Spoke with Dr. Hancock this am, he agrees with plan, he was not scheduled to see patient until September, however he stated will get him in sooner. He is delusional, paranoid, though answers questions. (2) Chronic schizophrenia: Start date: 08/12/21 Start time: 10:00 Assessment and plan: clozaril restarted on lower dosing, titrate per pharmacy recommendations, as above (3) Bipolar disorder: Start date: 08/12/21 Start time: 10:00 Assessment and plan: As above (4) Afib: Start date: 08/12/21 Start time: 10:00 Status: Chronic Assessment and plan: Not a new dx. on eliquis. No Rate controlling medication. BB too many interaction. Therefore low dose cardizem with interaction btw this and clonizapine grapefruit juice. safest choice. Will use to regulate rate and keep below 100. (5) Dehydration: Start date: 08/12/21 Start time: 10:00 Status: Acute Assessment and plan: received IV fluids overnight. labs improved. taking PO IVF dcd (6) Heel ulcer: Start date: 08/12/21 Start time: 10:00 Status: Acute Assessment and plan: wound care consult: Recommendations: Clean wound with Equos spray, then pat dry. Apply a nickel thick layer of Anasept gel to the wound bed. Cover with Mepilex border. Change every 3 days or PRN. Offload pressure. (7) Prerenal azotemia: Start date: 08/12/21 Start time: 10:00 Status: Acute Assessment and plan: continue to monitor. (8) Diabetes mellitus, type 2: Start date: 08/12/21 Start time: 10:00 Assessment and plan: hold Metformin while hospitalized. continue to cover him with NovoLog per insulin sensitive scale and monitor his blood sugars before meals and at bedtime. (9) Discharge planning issues: Start date: 08/12/21 Start time: 10:00 Status: Acute Assessment and plan: case management following may be appropriate for care bed discussed with DR Lopez Subjective Subjective Patient reports: no new complaints Interval history since last seen: patient sitting up in chair. Follows commands. Spoke with Dr. Amezquita, he agrees to plan with clonzapril. Will continue. Hx of afib since at least 2018 per reviewing chart. On eliquis and add low dose cardizem to help with HR. Continue to monitor. Exam Const General: cooperative, comfortable, no acute distress, disheveled, frail appearing and ill appearing (older than stated age) chronically Nutritional Appearance: average body habitus Orientation: alert, awake and oriented to person [facility] Head: normal to inspection Teeth and gingiva: edentulous (many missing ohful1-2-6-10, 26 25 24 23) and poor dentition Chest Chest: normal inspection of the chest Resp Effort & Inspection: normal respiratory effort Auscultation: clear to auscultation bilaterally Cardio Rate: regular rate Rhythm: regular rhythm Skin Rashes: no rashes Neuro General: patient alert, patient awake, moves all extremities, no focal motor deficits and patient confused Cognition: abnormal cognition Motor: muscle tone normal throughout Extrem General: normal to inspection, full ROM and no pedal edema Psych Appearance: disheveled Speech and Movement: restless Attitude: cooperative Thought Process: confabulating, flight of ideas, illogical and tangential Insight: poor Judgment: poor Objective Last Vital Signs Temp 36.5 C 08/12/21 07:51 Pulse 95 H 08/12/21 07:51 Resp 18 08/12/21 07:51 BP 111/72 08/12/21 07:51 Pulse Ox 96 08/12/21 07:51 Laboratory Results - last 24 hr 08/10/21 08/12/21 08/12/21 20:17 07:14 07:14 WBC 8.54 RBC 5.40 Hgb 16.8 Hct 50.8 H MCV 94.1 MCH 31.1 MCHC 33.1 RDW 12.5 Plt Count 247 MPV 11.2 H Immature Gran % 0.4 Neutrophils % 61.3 Lymphocytes % 29.3 Monocytes % 7.7 Eosinophils % 0.7 Basophils % 0.6 Nucleated RBC % 0 Absolute Neutrophils 5.24 Absolute Lymphocytes 2.50 Absolute Monocytes 0.66 Absolute Eosinophils 0.06 Absolute Basophils 0.05 Sodium 142 Potassium 3.9 Chloride 107 Carbon Dioxide 21.2 Anion Gap 13.8 H BUN 19 H D Creatinine 0.9 Estimated GFR/1.73 m2 >= 60.00 Glucose 123 H Serum Osmolality 306 H Calcium 9.5 Magnesium 1.9
[2021-08-12] MEDS: dilTIAZem 30 MG TAB PO ×2 (11:52→20:09)
--- NOTE | 2021-08-12 13:27 | PHACLINREV_ITS ---
Pharmacy Admission Review - Admission Clinical Review (Last Reviewed 08/10/21 @ 23:36 by Brice Hickman) Discharge planning issues (Acute) Prerenal azotemia (Acute) Altered mental status (Acute) Dehydration (Acute) Heel ulcer (Acute) Penicillins Adverse Reaction (Intermediate, Unverified 08/10/21 17:57) black out gabapentin Adverse Reaction (Mild, Unverified 08/10/21 17:57) Headache niacin Adverse Reaction (Mild, Unverified 08/10/21 17:57) turn red Resuscitation Status Full Code Height 6 ft 5 in Weight 102.8 kg ALTERED MENTAL STATUS - Comments Comments/Follow Ups: AMS, Dehydration, patient had been off his meds for an unknown length of time. Restarting Clozapine via recommened titration for doses missed >72 hours. Authorization to dispense via [employer] program #[id number], reported ANC 7.76 on 08/11/21. Day #1 of titration started 08/11/21 @ 0830. Titration entered into [employer] only up to include day#10 through 08/20/21....Info will need to be passed along at discharge to continue titration. [facility] with bubblepacked meds. Per [employer]: Clozapine Reinitiation for Schizophrenia: If therapy is interrupted for 2 days or more, clozapine should be reinitiated at a dose of 12.5 mg once or twice daily [16][17][18]; if well tolerated, titration to the therapeutic dose may proceed more rapidly than recommended for initial therapy [17][18]. h) In schizophrenia, initial doses of oral clozapine have been suggested [36]: day #1: 12.5 mg twice daily. day #2: 25 mg in the AM. day #3: 25 mg twice daily. day #4: 25 mg in the AM, 50 mg at bedtime. day #5: 50 mg twice daily. day #6: 50 mg in the AM, 75 mg at bedtime. days #7 and #8: 50 mg in the AM, 100 mg at bedtime. days #9 and #10: 100 mg twice daily. days #11 and #12: 50 mg in the AM, 200 mg at bedtime. days #13 and #14: 100 mg in the AM, 200 mg at bedtime. Per MD note, Psychiatrist agrees with taper schedule and patient has followup Appt in September - Renal Dosing Renal Dosing: BUN 19 mg/dL (7-18) H D 08/12/21 07:14 Creatinine 0.9 mg/dL (0.70-1.30) 08/12/21 07:14 Medications needing adjustments: Reviewed (CC>100ml/min) - Anticoagulation Anticoagulation: Hgb 16.8 g/dL (13.5-17.5) 08/12/21 07:14 Hct 50.8 % (40.0-50.0) H 08/12/21 07:14 Plt Count 247 10^3/uL (130-400) 08/12/21 07:14 Creatinine 0.9 mg/dL (0.70-1.30) 08/12/21 07:14 Therapeutic Anticoagulation: Reviewed Medications: Apixaban (Eliquis 5mg po BID for chronic Afib) - Relevant Labs Sodium 142 mmol/L (136-145) 08/12/21 07:14 Potassium 3.9 mmol/L (3.5-5.1) 08/12/21 07:14 Chloride 107 mmol/L (98-107) 08/12/21 07:14 Magnesium 1.9 mg/dL (1.8-2.4) 08/12/21 07:14 Electrolytes, C-Reactive P, ESR: Reviewed (TSH in range, on [place] Thyroid) - DM Control DM Control: Glucose 123 mg/dL (74-106) H 08/12/21 07:14 Finger Stick Blood Glucose 134 Finger Stick Blood Glucose 134 Finger Stick Blood Glucose 142 Finger Stick Blood Glucose 142 Finger Stick Blood Glucose 114 Finger Stick Blood Glucose 114 Insulin Dosing: Reviewed (Novolog sliding scale, no A1C recent available (Last was 9.5 on 02/25/19), Type-2) - Heart Failure/[place] Heart Failure/[place]: Troponin I < 50 ng/L (<or=60) 08/10/21 22:00 EF%, LESA's, B-Blockers, Diuretics: Reviewed (Diltiazem 30mg po BID started, Lasix daily for leg edema) - BP Control BP Control: Blood Pressure 120/74 Blood Pressure 111/72 Blood Pressure 118/72 - Qtc Review If Elevated: Reviewed (QTC 458) - Home Meds Home Med List reviewed: Reviewed (Last Clozapine dose was 350mg at bedtime. Metformin not ordered, has Novolog coverage. Lisinopril not ordered)
[2021-08-12] MEDS: rOPINIRole 1 MG TAB PO (14:52)
[2021-08-12] MEDS: Divalproex Sodium 500 MG TAB.ER.24H 2000 MG PO (14:52)
[2021-08-12] MEDS: Atorvastatin 10 MG TAB PO (20:10)
[2021-08-13 02:13] VITALS: PULSE 68
[2021-08-13 03:42] VITALS: BP 132/80; PULSE 56; RESP 18; TEMP 35.8; O2SAT 98
[2021-08-13 07:00] VITALS: PULSE 69
[2021-08-13 07:05] LABS: Abs Immature Grans 0.02 10^3/uL (0.0-0.06); Absolute Basophil Count 0.03 10^3/uL (0.0-0.2); Absolute Eosinophil Count 0.11 10^3/uL (0.0-0.7); Absolute Lymphocyte Count 2.42 10^3/uL (1.2-3.4); Absolute Monocyte Count 0.59 10^3/uL (0.1-0.8); Absolute Neutrophil Count 4.12 10^3/uL (1.2-6.7); Basophils % 0.4; Eosinophils % 1.5; HCT 49.3 % (40.0-50.0); HGB 16.3 g/dL (13.5-17.5); Immature Grans % 0.3; Lymphocytes % 33.2; MCH 30.9 pg (27.0-33.0); MCHC 33.1 % (32.0-36.0); MCV 93.5 fL (80-95); MPV 11.7 fL (8.0-11.0); Monocytes % 8.1; Neutrophils % 56.5; Nucleated RBC 0 %; Platelet Count 209 10^3/uL (130-400); RBC 5.27 10^6/uL (4.36-5.78); RDW 12.3 % (11.8-14.1); RDW-SD 42.4 fL; WBC 7.29 10^3/uL (4.4-10.8)
[2021-08-13 07:14] LABS: Anion Gap 9.7 mmol/L (3-11); BUN 18 mg/dL (7-18); CO2 25.3 mmol/L (21.0-32.0); CREATININE 0.8 mg/dL (0.70-1.30); Calcium 9.6 mg/dL (8.5-10.1); Chloride 108 mmol/L (98-107); Glucose 144 mg/dL (74-106); Potassium 3.7 mmol/L (3.5-5.1); Sodium 143 mmol/L (136-145)
[2021-08-13 08:00] VITALS: BP 112/76; PULSE 67; RESP 18; TEMP 36; O2SAT 96
--- NOTE | 2021-08-13 08:31 | NUR.NOTE ---
Telemetry is dc'd at 08:30. Patient was in an atrial fibrillation rhythm with a heart rate of 99. QRS was 0.05, QT was 0.35.Nursing Note:
[2021-08-13] MEDS: Fluticasone NASAL SPRAY 16 GM BTL NS (08:39)
[2021-08-13] MEDS: Apixaban 5 MG TAB PO (08:39)
[2021-08-13] MEDS: Insulin Aspart 300 UNITS/3 ML PEN SC (08:40)
[2021-08-13] MEDS: Calcium Carbonate *TUMS* 500 MG CHEW CH (08:40)
[2021-08-13] MEDS: dilTIAZem 30 MG TAB PO (08:40)
--- NOTE | 2021-08-13 10:18 | W.NUTRFU ---
Date of service: 08/13/21 Time of Service: 10:21 Nutrition Note NOTE: 60 year old male with celllulitis of left ankle, prerenal azotemia with PMH: HTN, HLD. Following diabetic diet with excellent intake. Recommend liberalize diet to regular with double portions protein in view of tall stature/lean body mass. Not at nutritional risk at this time. Will continue to follow and support. Time Spent in Nutritional Counseling and Treatment: 0
[2021-08-13 11:50] VITALS: BP 146/83; PULSE 85; RESP 19; TEMP 36.1; O2SAT 98
--- NOTE | 2021-08-13 13:22 | W.PM.DS.N ---
Date of service: 08/13/21 Time of Service: 13:22 DS: Diagnosis Discharge Diagnosis (1) Altered mental status: Status: Acute (2) Chronic schizophrenia: (3) Bipolar disorder: (4) Afib: Status: Chronic (5) Dehydration: Status: Acute (6) Heel ulcer: Status: Acute (7) Prerenal azotemia: Status: Acute (8) Diabetes mellitus, type 2: Discharge Plan Disposition Patient Disposition: [facility]ILITY Condition: Stable Discharge Details Reason For Visit: Altered Mental Status,Dehydration Admit Date/Time: 08/10/21 20:08 Admit Provider: Brice Hickman Attending Provider: Brice Hickman [facility]: Judd Hathaway is a 60 yr old male w/ Hx of schizophrenia, chronic atrial fibrillation, NIDDM, bipolar disorder who is vaccinated against COVID-19 yet developed COVID-19 pneumonia complicated by rhabdomyolysis, cellulitis of his left ankle and blister on his left heel. He was treated for the COVID pneumonia w/ steroids, remdesivir and baricitinib and his cellulitis was treated w/ iv antibiotics and then oral antibiotics. He has been followed in the surgical clinic by Cecy Mcnamara for his wounds. He was brought to the ED today via EMS when his landlord called EMS due the patient being confused, having flight of ideas/wandering speech, found to be naked from waist down and unkempt. Review of his chart reveals that his pharmacy[facility] would not refill his clozaril d/t his not getting surveillance labs (patient is suppose to get monthly CBC to monitor for agranulocytosis). Last CBC prior to today was on 07/04 and his last fill of his clozapine was on 07/08/21.? Medical work up in the ED showed no medical reason for his symptoms. His case was discussed with hospitalist services and he was admitted to medical surgical unit for further evaluation and resumption of his psychiatric medication. He was started back on a taper as recommended by pharmacy and tolerating well. He has remained medically stable with no behavioral issues. Case management has been following and plans are discharge to the care bed. discharge discussed with Dr Lopez. Home Meds and New Rx's Prescriptions: New clozapine 25 mg Tablet 25 mg PO BID Qty: 2 0RF Rx Instructions: tonight and tomorrow morning (08/14) clozapine 25 mg Tablet 50 mg PO BID Qty: 12 0RF Rx Instructions: start 08/14 at HS, given bid through 08/17 am dose clozapine 25 mg Tablet 75 mg PO BID Qty: 15 0RF Rx Instructions: start 08/17 at HS through 315 am clozapine 100 mg Tablet 100 mg PO BID Qty: 10 0RF Rx Instructions: start 08/20 or per outpatient psychiatric team Continued lisinopril 5 mg tablet 5 mg PO DAILY 0RF Eliquis 5 MG tablet 5 mg PO BID Qty: 180 12RF sennosides [senna] 8.6 MG tablet 8.6 mg PO BID PRN1 Days 0RF Rx Instructions: prn atorvastatin [Lipitor] 10 MG tablet 10 mg PO QPM 0RF divalproex 500 MG tablet extended release 24 hr 2,000 mg PO HS 0RF Rx Instructions: takes at 1600 thyroid (pork) [Tri[place] Thyroid] 90 MG tablet 90 mg PO QAM 0RF melatonin 3 MG tablet extended release 3 mg PO HS PRN0RF ropinirole 1 mg Tablet 1 mg PO DIRECTED 0RF Rx Instructions: at 1600 metformin 1,000 mg Tablet 1,000 mg PO BID 0RF albuterol sulfate [Ventolin HFA] 90 mcg/actuation Hfa Aerosol Inhaler 2 puff INHALATION Q4H PRN0RF docusate sodium 100 mg capsule 200 mg PO BID PRN0RF calcium carbonate 500 mg calcium (1,250 mg) Tablet,Chewable 500 mg PO TID 0RF fluticasone propionate 50 mcg/actuation [place],Suspension 1 spray INTRANASAL Q12H 0RF loratadine 10 mg Tablet 10 mg PO DAILY PRN0RF furosemide 20 mg tablet 20 mg PO DAILY 0RF Discontinued clozapine 100 MG tablet 300 mg PO HS 0RF Hold Instructions: per [place] pt has not had labs done to continue med Discharge Instructions Instructions: Schizophrenia (DC) Stand Alone Forms: Nursing Discharge Form Referrals: Nisha Carrillo MD [Primary Care Provider] - (Please make an Appointment in the next 2 weeks ) Activity:: Activity as Tolerated Equipment/Supplies:: No Equipment Needed Diet:: Carb Counting Discharge Orders Discharge Orders: Discharge Order (Routine); Ordered 08/13/21 Ordered By: Odalys Johns Discharge Data Discharge Date/Time-TO BE ENTERED AT DEPARTURE: 03/08/22 13:55 DS: Summary Time Spent with Patient providing and/or coordinating discharge services: Less than 30 minutes Status at Discharge Functional status at discharge: independent ambulation Overall status at discharge: patient is progressing back to baseline Mental Status: mental status grossly normal Speech and Movement: speech and movement normal Mood: congruent mood Affect: normal affect Exam Psych Mental Status: mental status grossly normal Speech and Movement: speech and movement normal Mood: congruent mood Affect: normal affect DS: Data Vitals/I&O Vitals and I&O: Vital Signs Temperature 36.1 C L 08/13/21 11:50 Temperature Source Tympanic 08/13/21 11:50 Pulse 85 08/13/21 11:50 Pulse Rhythm Irregular 08/13/21 00:57 Respiratory Rate 19 08/13/21 11:50 Respiratory Effort Non-Labored 08/13/21 00:57 Respiratory Depth Normal 08/13/21 00:57 Respiratory Pattern Normal 08/13/21 00:57 Blood Pressure 146/83 H 08/13/21 11:50 Blood Pressure Mean 88 08/10/21 18:35 Blood Pressure Position Supine 08/10/21 17:45 Pulse Oximetry 98 08/13/21 11:50 Oxygen Delivery Method Room Air 08/13/21 11:50 Oxygen Flow Rate 0 08/13/21 11:50 Pain Level 0 08/13/21 03:42 Comment 08/10/21 23:38 Intake & Output 08/12/21 08/13/21 08/13/21 23:59 11:59 23:59 Intake Total 840 / 840 250 / 250 Output Total 400 / 1250 1025 / 1025 Balance 440 / -410 -775 / -775 Intake: Oral 840 / 840 250 / 250 Output: Urine 400 / 1250 1025 / 1025 Other: Urine Color Yellow Yellow Urine Appearance Clear Clear Urine Odor None Comment pT ended up peeing in cup, not in urnial. Patient used his cover for breakfeast as a toilet. Voiding Methods Urinal Toilet Data Completed and Pending Labs on day of discharge: Labs from last 24 hours 08/13/21 08/13/21 06:30 06:30 WBC 7.29 RBC 5.27 Hgb 16.3 Hct 49.3 MCV 93.5 MCH 30.9 MCHC 33.1 RDW 12.3 Plt Count 209 MPV 11.7 H Immature Gran % 0.3 Neutrophils % 56.5 Lymphocytes % 33.2 Monocytes % 8.1 Eosinophils % 1.5 Basophils % 0.4 Nucleated RBC % 0 Absolute Neutrophils 4.12 Absolute Lymphocytes 2.42 Absolute Monocytes 0.59 Absolute Eosinophils 0.11 Absolute Basophils 0.03 Sodium 143 Potassium 3.7 Chloride 108 H Carbon Dioxide 25.3 Anion Gap 9.7 BUN 18 Creatinine 0.8 Estimated GFR/1.73 m2 >= 60.00 Glucose 144 H Calcium 9.6 Preliminary micro results at discharge 08/10/21 20:10 Blood Culture - Preliminary Blood NO GROWTH 48 HOURS 08/10/21 18:30 Blood Culture - Preliminary Blood NO GROWTH 48 HOURS PFSH All Active Problems (Updated 08/12/21 @ 09:47 by Chasity Welsh NP) Afib (Chronic) Discharge planning issues (Acute) Prerenal azotemia (Acute) Changes in vision (Acute) Altered mental status (Acute) Dehydration (Acute) Heel ulcer (Acute) Cellulitis (Acute) Cellulitis of left ankle (Acute) Blister of left foot (Acute) Hyperglycemia (Acute) Vitreous floaters of right eye (Acute) BRENNEN (acute kidney injury) (Acute) Screening for colorectal cancer (Acute) Medical History Bipolar disorder Chronic schizophrenia Diabetes mellitus, type 2 Non-ST elevation [place] (NSTEMI) Obesity Surgical History Colonoscopy - MAC (01/25/16) 2010 Excision, Lipoma Hx of cholecystectomy Hydrocelectomy Tonsillectomy Family History Mother No problems noted. Father Heart disease Brother Alcohol abuse Social History Smoking/Tobacco Use Status: Current-Occasional Tobacco Type: cigarettes Smoking risk assessment performed?: Yes Alcohol Intake: current Alcohol Intake frequency: holidays/special occasions only Alcohol type: beer and hard liquor Drug use: Current Sobriety Substance use type: does not use Do you feel safe at home: Yes Do you feel safe in your relationship?: Yes
--- NOTE | 2021-08-13 14:56 | CMDISCH_ITS ---
- If Service Date Differs Date of service: 08/13/21 Time of Service: 14:56 LACE Index Scoring Tool - Questions: Length of Stay (in days): 3 Acuity (Admit via E.D.?): Yes Comorbidities: Diabetes w/o Complication E.D. Visits: 5 - Answers: Total Score: 11 Risk of Readmission: High Risk Care Management Discharge Reason for Hospitalization: Altered mental status, dehydration Discharge Plan: Judd will discharge to [facility] Care Bed for further monitoring of medication titration, transportation provided by CHIEF RECORDIST. Judd was admitted because his labs weren't drawn-resulting in [facility]'s inability to fill medications (no levels) and Judd's eventual psychosis. CM discussed CM needs with COA: Alexandra Ray ([phone]) and [place]: CHIEF RECORDIST at [facility]. Alexandra reports [facility] will not coordinate with her due to lack of release. Additional barriers: CHIEF RECORDIST main CM: limits additional resources, CHIEF RECORDIST lacks staffing and resources to keep Judd stable in community (as noted by admission). CM advocated for better care coordination and completion of releases: [place] stated: Attached are the 2 forms that need to be completed and faxed to the Care Bed prior to admission. We will address the need for information release to Aging agency as a part of his plan of care while at the Care Bed. I will be at the hospital entrance at 1:45pm. Thanks. Daniella Sky, Ed.D, SLITTER CREASER SLOTTER OPERATOR. CHIEF RECORDIST Foundation Director. [facility] [phone]. CM completed paperwork with SMOKING TOBACCO CUTTER OPERATOR and faxed to Care Bed, as well as notifying interdepartmental team of discharge plan. CM completed [facility] release of information with Judd and faxed to Alexandra to support care coordination in the community. Patient/Family Education Needs: Review discharge instructions, discuss Ask Me Three. - MH Services (Omit if N/A) Current MH Services: CHIEF RECORDIST - Disposition Disposition: Crisis Bed ([facility])
--- NOTE | 2021-08-13 14:56 | PDOC.CMDIS ---
- If Service Date Differs Date of service: 08/13/21 Time of Service: 14:56 LACE Index Scoring Tool - Questions: Length of Stay (in days): 3 Acuity (Admit via E.D.?): Yes Comorbidities: Diabetes w/o Complication E.D. Visits: 5 - Answers: Total Score: 11 Risk of Readmission: High Risk Care Management Discharge Reason for Hospitalization: Altered mental status, dehydration Discharge Plan: Judd will discharge to [facility] Care Bed for further monitoring of medication titration, transportation provided by [facility]. Judd was admitted because his labs weren't drawn-resulting in [facility]'s inability to fill medications (no levels) and Judd's eventual psychosis. CM discussed CM needs with COA: Alexandra Ray ([phone]) and [place]: WHIZZER at [facility]. Alexandra reports [facility] will not coordinate with her due to lack of release. Additional barriers: [facility] main CM: limits additional resources, [facility] lacks staffing and resources to keep Judd stable in community (as noted by admission). CM advocated for better care coordination and completion of releases: [place] stated: Attached are the 2 forms that need to be completed and faxed to the Care Bed prior to admission. We will address the need for information release to Aging agency as a part of his plan of care while at the Care Bed. I will be at the hospital entrance at 1:45pm. Thanks. Daniella Sky, Ed.D, FLOOR MANAGER. [facility] Occupational Nurse. [facility] [phone]. CM completed paperwork with SWITCHMAN SUPERVISOR and faxed to Care Bed, as well as notifying interdepartmental team of discharge plan. CM completed [facility] release of information with Judd and faxed to Alexandra to support care coordination in the community. Patient/Family Education Needs: Review discharge instructions, discuss Ask Me Three. - MH Services (Omit if N/A) Current MH Services: [facility] - Disposition Disposition: Crisis Bed ([facility])
== END 2021-08-13 13:55 | disposition designated cancer center or children's hospital (05) ==
LOC: ER 20:15 → MS 20:58
PROVIDERS: Internal Medicine; Nurse Practitioner Family; Admitting Provider Internal Medicine; Emergency Provider Physician Assistant; PCP Family Medicine; Visit Provider Internal Medicine
DX: E86.0 Dehydration (principal); R41.82 Altered mental status, unspecified; I48.20 Chronic atrial fibrillation, unspecified; F20.9 Schizophrenia, unspecified; F41.8 Other specified anxiety disorders; F31.9 Bipolar disorder, unspecified; I25.2 Old myocardial infarction; L97.429 Non-pressure chronic ulcer of left heel and midfoot with unspecified severity; Z79.84 Long term (current) use of oral hypoglycemic drugs; Z91.19 Patient's noncompliance with other medical treatment and regimen; E11.621 Type 2 diabetes mellitus with foot ulcer; R79.89 Other specified abnormal findings of blood chemistry; Z86.16 Personal history of COVID-19; Z79.899 Other long term (current) drug therapy
CPT/HCPCS: 36415; 51701; 80048; 80053; 80307; 82550; 82805; 84145; 87040; 87635; 93005; 96360; 99285; 70450; 71046; 80320; 80329; 81003; 81015; 83605; 83735; 83930; 84443; 84484; 85025; 93010; 99217; 99219; 99225; 99226; G0378; J3490

== ENCOUNTER 2021-08-21 02:52 | Outpatient (CLI) | payer MEDICARE, MEDICAID, SELFPAY | END 2021-08-21 02:53 | disposition home or self-care (01) | LOC: LBO 02:53 | PROVIDERS: PCP Family Medicine; Visit Provider Psychiatry & Neurology Psychiatry ==

== ENCOUNTER 2021-08-23 01:38 | Outpatient (CLI) | payer MEDICARE, MEDICAID, SELFPAY | END 2021-08-23 01:39 | disposition home or self-care (01) | LOC: LBO 01:38 | PROVIDERS: PCP Family Medicine; Visit Provider Psychiatry & Neurology Psychiatry ==

== ENCOUNTER 2021-08-23 11:12 | Emergency (ER) | payer MEDICARE, MEDICAID, SELFPAY ==
[2021-08-23 11:25] VITALS: BP 117/79; PULSE 100; RESP 16; TEMP 36.1; O2SAT 96
--- NOTE | 2021-08-23 12:22 | W.ED.GENAD ---
Discharge Plan Disposition Patient Disposition: HOME Condition: Stable Discharge Details Clinical Impression: Schizophrenia Primary Care Provider: Nisha Carrillo ED Provider: Brice Maravilla Home Meds and New Rx's Prescriptions: Continued lisinopril 5 mg tablet 5 mg PO DAILY 0RF Eliquis 5 MG tablet 5 mg PO BID Qty: 180 12RF sennosides [senna] 8.6 MG tablet 8.6 mg PO BID PRN1 Days 0RF Rx Instructions: prn atorvastatin [Lipitor] 10 MG tablet 10 mg PO QPM 0RF divalproex 500 MG tablet extended release 24 hr 2,000 mg PO HS 0RF Rx Instructions: takes at 1600 thyroid (pork) [[place] Thyroid] 90 MG tablet 90 mg PO QAM 0RF melatonin 3 MG tablet extended release 3 mg PO HS PRN0RF ropinirole 1 mg Tablet 1 mg PO DIRECTED 0RF Rx Instructions: at 1600 albuterol sulfate [Ventolin HFA] 90 mcg/actuation Hfa Aerosol Inhaler 2 puff INHALATION Q4H PRN0RF docusate sodium 100 mg capsule 200 mg PO BID PRN0RF calcium carbonate 500 mg calcium (1,250 mg) Tablet,Chewable 500 mg PO TID 0RF fluticasone propionate 50 mcg/actuation [place],Suspension 1 spray INTRANASAL Q12H 0RF furosemide 20 mg tablet 20 mg PO DAILY 0RF clozapine 25 mg Tablet 25 mg PO BID Qty: 2 0RF Rx Instructions: tonight and tomorrow morning (08/14) clozapine 25 mg Tablet 50 mg PO BID Qty: 12 0RF Rx Instructions: start 08/14 at HS, given bid through 312 am dose clozapine 25 mg Tablet 75 mg PO BID Qty: 15 0RF Rx Instructions: start 3 at HS through 3/15 am clozapine 100 mg Tablet 100 mg PO BID Qty: 10 0RF Rx Instructions: start 3 or per outpatient psychiatric team Discharge Instructions Instructions: Schizophrenia (ED) Additional Instructions: Please follow the instructions given to you by the mental health team. Iesha from the [facility] human services team will meet with you over the weekend for evaluation and to give you your medications. Please watch for new or worsening symptoms and return to the ER for any concerns. Lastly, also contact your primary care provider to set up outpatient reevaluation Discharge Data Discharge Date/Time-TO BE ENTERED AT DEPARTURE: 08/23/21 12:40 Medical Decision Making 60-year-old gentleman, past medical history of schizophrenia and bipolar disorder presents via EMS from the mental health office for a medical screening evaluation and mental health evaluation. His only medical concern is that of a skin lesion for the past months. I did evaluate this, we discussed that he needs to follow-up with likely a plastic surgeon or radio control crane operator to have this biopsied for further evaluation. He will contact his primary care regarding this for a referral. Patient denies any suicidal or homicidal ideations. Patient is pleasant and has slightly pressured speech but feels safe and is not requesting any mental health inpatient treatment. I do not see any indication to reflexively obtain screening laboratory values unless mental health evaluate the patient and determine if he needs inpatient placement. I contacted mental health who completed their evaluation. Please see their note. They were able to safety plan the patient home, will follow the patient in their office over the weekend for evaluation and to give meds. He does not meet involuntary inpatient placement does not requesting voluntary placement. Patient and I discussed this plan, he is agreeable and has no additional questions or concerns. Standard discharge and return precautions were provided. He denies any suicidal or homicidal ideations. Reports feeling safe. I was told that mental health contacted his landlord and he will be able to get into his apartment. Mental health will send transport to the ER to transport him back to their office where his car is currently parked. This documentation was generated using [employer] dictation system, please disregard any oddities of phrase or misspellings. Medical Records Medical records reviewed: Yes I reviewed the patient's medical records. HPI General Mode of arrival: EMS. Date/Time Provider Initiated Documentation: 08/23/21 11:40. Limitations to Documentation: no limitations. Information obtained by: patient and EMS. HPI Narrative: This is a 60-year-old gentleman, past medical history of schizophrenia, bipolar disorder, A. fib, diabetes, presenting to the ER via EMS from the office of [facility] for medical screening evaluation and psychiatric exam. Patient was recently at the care bed for 1 week and was discharged Thursday. He tells me he has been living at home and taking his medications as directed. Apparently he drove himself to the mental health outpatient office today to get his medications and while he was there they felt as though he was talking delusionally, speaking of cancer on his face, stating he was locked out of his apartment he could not get back in and needed help. They sent him to the ER for further evaluation. Patient denies any suicidal or homicidal ideations. His only medical complaint at this time is that of requesting that he has a lesion on his face that has been present for approximately 6 months be checked. He denies recent illness or trauma. He does tell me he needs his landlord called in order to get back into his apartment. Patient states that he feels safe and is not requesting inpatient psychiatric treatment. Related Data Home Medications Medication Instructions Recorded Confirmed atorvastatin 10 mg tablet (Lipitor) 10 mg PO QPM 01/23/16 08/10/21 divalproex 500 mg tablet,extended 2,000 mg PO HS 01/23/16 08/10/21 release 24 hr melatonin 3 mg tablet,extended 3 mg PO HS PRN 01/23/16 08/23/21 release thyroid (pork) 90 mg tablet 90 mg PO QAM 01/23/16 08/23/21 ([place] Thyroid) apixaban 5 mg tablet (Eliquis) 5 mg PO BID #180 tab 07/20/17 08/10/21 sennosides 8.6 mg tablet (senna) 8.6 mg PO BID PRN 1 Days 07/28/17 08/23/21 albuterol sulfate 90 mcg/actuation 2 puff INHALATION Q4H PRN 03/27/19 08/10/21 aerosol inhaler (Ventolin HFA) ropinirole 1 mg tablet 1 mg PO DIRECTED 03/27/19 08/23/21 docusate sodium 100 mg capsule 200 mg PO BID PRN 11/13/20 08/10/21 calcium carbonate 500 mg calcium 500 mg PO TID 05/13/21 08/10/21 (1,250 mg) chewable tablet fluticasone propionate 50 1 spray INTRANASAL Q12H 05/13/21 08/10/21 mcg/actuation nasal spray,suspension lisinopril 5 mg tablet 5 mg PO DAILY 07/31/21 08/23/21 furosemide 20 mg tablet 20 mg PO DAILY 08/10/21 08/10/21 clozapine 100 mg tablet 100 mg PO BID #10 tab 08/13/21 clozapine 25 mg tablet 25 mg PO BID #2 tab 08/13/21 clozapine 25 mg tablet 50 mg PO BID #12 tab 08/13/21 clozapine 25 mg tablet 75 mg PO BID #15 tab 08/13/21 Previous Rx's Medication Instructions Recorded apixaban 5 mg tablet (Eliquis) 5 mg PO BID #180 tab 07/20/17 clozapine 100 mg tablet 100 mg PO BID #10 tab 08/13/21 clozapine 25 mg tablet 25 mg PO BID #2 tab 08/13/21 clozapine 25 mg tablet 50 mg PO BID #12 tab 08/13/21 clozapine 25 mg tablet 75 mg PO BID #15 tab 08/13/21 Allergies Allergy/AdvReac Type Severity Reaction Status Date / Time Penicillins AdvReac Intermediate black out Unverified 08/23/21 11:32 gabapentin AdvReac Mild Headache Unverified 08/23/21 11:32 niacin AdvReac Mild turn red Unverified 08/23/21 11:32 General Stated Complaint: PsychEval MARY: 2 Review of Systems Constitutional Constitutional: Denies fever(s) and Denies headache(s) Eyes Eyes: Denies change in vision ENT Ears, Nose, Mouth, and Throat: Denies headache(s) Cardiovascular Cardiovascular: Denies chest pain and Denies dyspnea Respiratory Respiratory: Denies dyspnea Gastrointestinal Gastrointestinal: Denies abdominal pain, Denies nausea and Denies vomiting Musculoskeletal Musculoskeletal: Denies back pain Integumentary/Breasts Skin/Breast: Reports lesions Neurologic Neurologic: Denies headache(s) Psychiatric Psychiatric: Denies homicidal ideation and Denies suicidal ideation PFSH All Active Problems Schizophrenia (Chronic) Cellulitis (Acute) Cellulitis of left ankle (Acute) Blister of left foot (Acute) Hyperglycemia (Acute) Vitreous floaters of right eye (Acute) BRENNEN (acute kidney injury) (Acute) Screening for colorectal cancer (Acute) Medical History Afib Bipolar disorder Chronic schizophrenia Diabetes mellitus, type 2 Heel ulcer Non-ST elevation [place] (NSTEMI) Obesity Surgical History Colonoscopy - MAC (01/25/16) 2011 Excision, Lipoma Hx of cholecystectomy Hydrocelectomy Tonsillectomy Family History Mother No problems noted. Father Heart disease Brother Alcohol abuse Social History Smoking/Tobacco Use Status: Current-Occasional Tobacco Type: cigarettes Smoking risk assessment performed?: Yes Alcohol Intake: current Alcohol Intake frequency: holidays/special occasions only Alcohol type: beer and hard liquor Drug use: Current Sobriety Substance use type: does not use Do you feel safe at home: Yes Do you feel safe in your relationship?: Yes Exam Const General: cooperative, healthy appearing, comfortable and no acute distress Orientation: alert, awake and oriented x3 HENMT Head: normal to inspection, normocephalic and atraumatic Mouth: moist mucous membranes Eyes General: appearance normal, both eyes and all related structures Conjunctivae: conjunctivae normal Neck Neck: normal visual inspection, trachea midline and supple Resp Effort & Inspection: normal respiratory effort and able to speak in complete sentences Auscultation: clear to auscultation bilaterally Cardio Rate: regular rate Rhythm: regular rhythm GI Palpation: soft and nontender Back/Spine/Pelvis Back: No back tenderness Skin Other: Right side of the face inferior periorbital region, there is a skin lesion approximately 0.75 cm in size, nontender, papular in nature, slightly hyperpigmented with mildly irregular borders. There is no induration or fluctuance. Neuro General: patient alert, patient awake, patient oriented x3, moves all extremities and no focal motor deficits Cognition: normal cognition Speech: speech normal Gait: normal gait Motor: muscle tone normal throughout Sensory Exam: no sensory deficits noted Psych Appearance: grossly normal Mental Status: mental status grossly normal Speech and Movement: pressured speech (Slightly) Mood: congruent mood Affect: animated Attitude: cooperative Thought Process: loose association Thought Content: no hallucinations, no homicidality and suicidality Insight: limited Judgment: limited Course Vital Signs Vital signs: Vital Signs Temperature 36.1 C L 08/23/21 11:25 Pulse 100 H 08/23/21 11:25 Respiratory Rate 16 08/23/21 11:25 Blood Pressure 117/79 08/23/21 11:25 Pulse Oximetry 96 08/23/21 11:25 Temperature 36.1 C L 08/23/21 11:25 Temperature Source Oral 08/23/21 11:25 Pulse 100 H 08/23/21 11:25 Respiratory Rate 16 08/23/21 11:25 Respiratory Effort 08/23/21 11:25 Blood Pressure 117/79 08/23/21 11:25 Blood Pressure Position Supine 08/23/21 11:25 Pulse Oximetry 96 08/23/21 11:25 Oxygen Delivery Method Room Air 08/23/21 11:25 Oxygen Flow Rate 0 08/23/21 11:25 Pain Level 0 08/23/21 11:25
--- NOTE | 2021-08-23 16:42 | NUR.NOTE ---
i agree with Kuldeep Jarrett's documentation
== END 2021-08-23 12:40 | disposition home or self-care (01) ==
PROVIDERS: Emergency Provider Physician Assistant; PCP Family Medicine
DX: F20.9 Schizophrenia, unspecified (principal); F31.9 Bipolar disorder, unspecified; L98.8 Other specified disorders of the skin and subcutaneous tissue
CPT/HCPCS: 99283

== ENCOUNTER 2021-08-25 23:04 | Emergency (ER) | payer MEDICARE, MEDICAID, SELFPAY ==
[2021-08-25 23:09] VITALS: BP 151/82; PULSE 99; RESP 16; TEMP 36.4; O2SAT 97
--- NOTE | 2021-08-25 23:26 | W.ED.GENAD ---
Discharge Plan Disposition Patient Disposition: HOME Condition: Good Discharge Details Clinical Impression: Headache Primary Care Provider: Nisha Carrillo ED Provider: Hermes Calderon Home Meds and New Rx's Prescriptions: Continued lisinopril 5 mg tablet 5 mg PO DAILY 0RF Eliquis 5 MG tablet 5 mg PO BID Qty: 180 12RF sennosides [senna] 8.6 MG tablet 8.6 mg PO BID PRN1 Days 0RF Rx Instructions: prn atorvastatin [Lipitor] 10 MG tablet 10 mg PO QPM 0RF divalproex 500 MG tablet extended release 24 hr 2,000 mg PO HS 0RF Rx Instructions: takes at 1600 thyroid (pork) [[place] Thyroid] 90 MG tablet 90 mg PO QAM 0RF melatonin 3 MG tablet extended release 3 mg PO HS PRN0RF ropinirole 1 mg Tablet 1 mg PO DIRECTED 0RF Rx Instructions: at 1600 albuterol sulfate [Ventolin HFA] 90 mcg/actuation Hfa Aerosol Inhaler 2 puff INHALATION Q4H PRN0RF docusate sodium 100 mg capsule 200 mg PO BID PRN0RF calcium carbonate 500 mg calcium (1,250 mg) Tablet,Chewable 500 mg PO TID 0RF fluticasone propionate 50 mcg/actuation [place],Suspension 1 spray INTRANASAL Q12H 0RF furosemide 20 mg tablet 20 mg PO DAILY 0RF clozapine 25 mg Tablet 25 mg PO BID Qty: 2 0RF Rx Instructions: tonight and tomorrow morning (08/14) clozapine 25 mg Tablet 50 mg PO BID Qty: 12 0RF Rx Instructions: start 3 at HS, given bid through 3 am dose clozapine 25 mg Tablet 75 mg PO BID Qty: 15 0RF Rx Instructions: start 3 at HS through 315 am clozapine 100 mg Tablet 100 mg PO BID Qty: 10 0RF Rx Instructions: start 08/20 or per outpatient psychiatric team Discharge Instructions Instructions: General Headache (ED) Additional Instructions: At this time you have evidence of a mild tension headache. Please take 500 mg of Tylenol every 6 hours. Please massage the back of your neck use a heating pad as needed. If you notice any worsening of your symptoms, or any new symptoms such as vomiting, diarrhea, fever, chills, shortness of breath, chest pain, numbness, weakness, or fainting , please return immediately to the emergency department for reevaluation. Please follow up with your primary care provider as soon as possible for reassessment and reevaluation. As always, it was a pleasure participating in your medical care today. Referrals: Nisha Carrillo MD [Primary Care Provider] - Medical Decision Making 60-year-old male with a past medical history of schizophrenia, A. fib, bipolar disorder, type 2 diabetes, who presents today for evaluation of mild headache. Patient states that for the last 2 years he has had mild headache. He describes it as achy in nature, stemming from the back of his head forward. Worse with stress. The patient denies any headache red flags of worst headache of life, thunderclap headache, neck pain, fever, chills, concerning family history of polycystic kidney disease, Marfan syndrome, Edmar-Danlos syndrome, abdominal aortic aneurysm, aortic dissection, or intracranial aneurysm. He has no other complaints at this time. No numbness tingling or weakness. No other modifying factors. Physical exam demonstrates no nuchal rigidity, no evidence of meningitis. No signs of neurologic deficit on neuro assessment. Review of CT scan that was performed within the last 18 days demonstrates no evidence of mass or process. Symptoms have been present for 2 years, the patient's current symptoms are clinically consistent with acute bleed, aneurysm, or meningitis. Symptoms at this time appear clinically consistent with a mild tension headache. Discussed red flags which to return. Will give NSAIDs here, recommend Tylenol at home secondary to his Eliquis use. I have extensively reviewed the treatment plan and discharge instructions with the patient. I have addressed all patient concerns at this time. The patient was made aware of what symptoms to monitor for that would warrant a return to the emergency department. Discussed the plan with the patient, they demonstrate verbal understanding and agreement with our assessment and plan at this time. The documentation in this chart was dictated using [employer] dictation software. Please excuse any dictation errors. HPI General Date/Time Provider Initiated Documentation: 08/25/21 23:09. HPI Narrative: 60-year-old male with a past medical history of schizophrenia, A. fib, bipolar disorder, type 2 diabetes, who presents today for evaluation of mild headache. Patient states that for the last 2 years he has had mild headache. He describes it as achy in nature, stemming from the back of his head forward. Worse with stress. The patient denies any headache red flags of worst headache of life, thunderclap headache, neck pain, fever, chills, concerning family history of polycystic kidney disease, Marfan syndrome, Edmar-Danlos syndrome, abdominal aortic aneurysm, aortic dissection, or intracranial aneurysm. He has no other complaints at this time. No numbness tingling or weakness. No other modifying factors. Related Data Home Medications Medication Instructions Recorded Confirmed atorvastatin 10 mg tablet (Lipitor) 10 mg PO QPM 01/23/16 08/10/21 divalproex 500 mg tablet,extended 2,000 mg PO HS 01/23/16 08/10/21 release 24 hr melatonin 3 mg tablet,extended 3 mg PO HS PRN 01/23/16 08/25/21 release thyroid (pork) 90 mg tablet 90 mg PO QAM 01/23/16 08/25/21 ([place] Thyroid) apixaban 5 mg tablet (Eliquis) 5 mg PO BID #180 tab 07/20/17 08/10/21 sennosides 8.6 mg tablet (senna) 8.6 mg PO BID PRN 1 Days 07/28/17 08/25/21 albuterol sulfate 90 mcg/actuation 2 puff INHALATION Q4H PRN 03/27/19 08/10/21 aerosol inhaler (Ventolin HFA) ropinirole 1 mg tablet 1 mg PO DIRECTED 03/27/19 08/25/21 docusate sodium 100 mg capsule 200 mg PO BID PRN 11/13/20 08/25/21 calcium carbonate 500 mg calcium 500 mg PO TID 05/13/21 08/10/21 (1,250 mg) chewable tablet fluticasone propionate 50 1 spray INTRANASAL Q12H 05/13/21 08/25/21 mcg/actuation nasal spray,suspension lisinopril 5 mg tablet 5 mg PO DAILY 07/31/21 08/25/21 furosemide 20 mg tablet 20 mg PO DAILY 08/10/21 08/25/21 clozapine 100 mg tablet 100 mg PO BID #10 tab 08/13/21 clozapine 25 mg tablet 25 mg PO BID #2 tab 08/13/21 clozapine 25 mg tablet 50 mg PO BID #12 tab 08/13/21 clozapine 25 mg tablet 75 mg PO BID #15 tab 08/13/21 Previous Rx's Medication Instructions Recorded apixaban 5 mg tablet (Eliquis) 5 mg PO BID #180 tab 07/20/17 clozapine 100 mg tablet 100 mg PO BID #10 tab 08/13/21 clozapine 25 mg tablet 25 mg PO BID #2 tab 08/13/21 clozapine 25 mg tablet 50 mg PO BID #12 tab 08/13/21 clozapine 25 mg tablet 75 mg PO BID #15 tab 08/13/21 Allergies Allergy/AdvReac Type Severity Reaction Status Date / Time Penicillins AdvReac Intermediate black out Unverified 08/25/21 23:13 gabapentin AdvReac Mild Headache Unverified 08/25/21 23:13 niacin AdvReac Mild turn red Unverified 08/25/21 23:13 General Stated Complaint: Headache MARY: 3 Review of Systems All systems reviewed & are unremarkable except as noted in HPI and below PFSH All Active Problems Schizophrenia (Chronic) Headache (Acute) Cellulitis (Acute) Cellulitis of left ankle (Acute) Blister of left foot (Acute) Hyperglycemia (Acute) Vitreous floaters of right eye (Acute) BRENNEN (acute kidney injury) (Acute) Screening for colorectal cancer (Acute) Medical History Afib Bipolar disorder Chronic schizophrenia Diabetes mellitus, type 2 Heel ulcer Non-ST elevation [place] (NSTEMI) Obesity Surgical History Colonoscopy - MAC (01/25/16) 2010 Excision, Lipoma Hx of cholecystectomy Hydrocelectomy Tonsillectomy Family History Mother No problems noted. Father Heart disease Brother Alcohol abuse Social History Smoking/Tobacco Use Status: Current-Occasional Tobacco Type: cigarettes Smoking risk assessment performed?: Yes Alcohol Intake: current Alcohol Intake frequency: holidays/special occasions only Alcohol type: beer and hard liquor Drug use: Current Sobriety Substance use type: does not use Do you feel safe at home: Yes Do you feel safe in your relationship?: Yes Exam Narrative Exam Narrative: 1.Const: Well-nourished, Well-developed, appearing stated age 2.Eyes: PERRL, no conjunctival injection, and symmetrical lids. 3.ENT: Atraumatic external nose and ears. Moist MM. Neck: Symmetric, trachea midline, No thyromegaly. Patient demonstrates good movement of cervical neck. There is no nuchal rigidity, no nuchal tenderness. Patient is able to flex the neck without any difficulty or significant pain. Negative Kernig's and Brudzinski sign. 4.CVS: +S1/S2, No murmurs or gallops. Peripheral pulses 2+ and equal in all extremities. Brisk capillary refill in all extremities. 5.RESP: Unlabored respiratory effort. Clear to auscultation bilaterally. No wheezes rales or rhonchi 6.GI: Soft, Nontender/Nondistended, No hepatosplenomegaly. No guarding or rebound. 7.MSK: Normocephalic/Atraumatic, Extremities w/o deformity or ttp No cyanosis or clubbing, Normal movement of all extremities 8.Skin: Warm, Dry. No rashes or lesions. 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 Sensation grossly intact, no focal neurologic deficits. All 6 cardinal planes of vision are fully intact. No evidence of rotatory or vertical nystagmus. The patient demonstrated a normal nfgjod-tusa-ikzcuw, good dexterity. There was no evidence of dysdiadochokinesia. Patient was able to ambulate without difficulty. There was no wide-based gait. Romberg testing was normal. Dnrw-hv-xyls testing was normal. Sensation was intact bilaterally as well as muscle strength bilaterally for all extremities. Patient was able to verbalize butter cup with no slurring, or miss pronunciation. 10.Psych: (AAO) x3. Appropriate mood and affect Course Vital Signs Vital signs: Vital Signs Temperature 36.4 C L 08/25/21 23:09 Pulse 99 H 08/25/21 23:09 Respiratory Rate 16 08/25/21 23:09 Blood Pressure 151/82 H 08/25/21 23:09 Pulse Oximetry 97 08/25/21 23:09 Temperature 36.4 C L 08/25/21 23:09 Pulse 99 H 08/25/21 23:09 Respiratory Rate 16 03/20/22 23:09 Respiratory Effort Non-Labored 08/25/21 23:18 Blood Pressure 151/82 H 08/25/21 23:09 Pulse Oximetry 97 08/25/21 23:09 Pain Level 6 08/25/21 23:09
[2021-08-25] MEDS: Ibuprofen 800 MG TAB PO (23:33)
[2021-08-25] MEDS: Acetaminophen 500 MG TAB 1000 MG PO (23:33)
== END 2021-08-26 | disposition home or self-care (01) ==
PROVIDERS: Emergency Provider Student in an Organized Health Care Education/Training Program; PCP Family Medicine
DX: R51.9 Headache, unspecified (principal)
CPT/HCPCS: 99283

== ENCOUNTER 2021-08-26 09:53 | Outpatient (CLI) | payer MEDICARE, MEDICAID, SELFPAY ==
[2021-08-26 09:19] LABS: Abs Immature Grans 0.08 10^3/uL (0.0-0.06); Absolute Basophil Count 0.03 10^3/uL (0.0-0.2); Absolute Eosinophil Count 0.12 10^3/uL (0.0-0.7); Absolute Lymphocyte Count 2.51 10^3/uL (1.2-3.4); Absolute Monocyte Count 0.79 10^3/uL (0.1-0.8); Absolute Neutrophil Count 4.63 10^3/uL (1.2-6.7); Basophils % 0.4; Eosinophils % 1.5; HCT 53.6 % (40.0-50.0); HGB 17.3 g/dL (13.5-17.5); Lymphocytes % 30.8; MCH 30.7 pg (27.0-33.0); MCHC 32.3 % (32.0-36.0); MPV 10.8 fL (8.0-11.0); Monocytes % 9.7; Neutrophils % 56.6; Nucleated RBC 0 %; Platelet Count 235 10^3/uL (130-400); RBC 5.64 10^6/uL (4.36-5.78); RDW 12.2 % (11.8-14.1); RDW-SD 43.3 fL; WBC 8.16 10^3/uL (4.4-10.8)
== END 2021-08-26 09:54 | disposition home or self-care (01) ==
LOC: LBO 09:54
PROVIDERS: PCP Family Medicine; Visit Provider Psychiatry & Neurology Psychiatry
DX: Z79.899 Other long term (current) drug therapy (principal)
CPT/HCPCS: 36415; 85025

== ENCOUNTER 2021-08-30 13:28 | Outpatient (REF) | payer MEDICARE, MEDICAID, SELFPAY ==
[2021-08-30 14:48] LABS: HCT 55.9 % (40.0-50.0); HGB 18.5 g/dL (13.5-17.5); MCH 30.9 pg (27.0-33.0); MCHC 33.1 % (32.0-36.0); MCV 93.3 fL (80-95); MPV 11.5 fL (8.0-11.0); Platelet Count 309 10^3/uL (130-400); RBC 5.99 10^6/uL (4.36-5.78); RDW 11.9 % (11.8-14.1); RDW-SD 41.2 fL; WBC 11.17 10^3/uL (4.4-10.8)
[2021-08-30 15:13] LABS: Hemoglobin A1C 6.4 % (<5.7)
== END 2021-08-30 13:29 | disposition home or self-care (01) ==
LOC: NCHCN 13:28
PROVIDERS: PCP Family Medicine; Visit Provider Family Medicine
DX: E11.9 Type 2 diabetes mellitus without complications (principal); I10 Essential (primary) hypertension
CPT/HCPCS: 85027; 83036

== ENCOUNTER 2021-08-31 11:57 | Outpatient (REF) | payer MEDICARE, MEDICAID, SELFPAY | END 2021-08-31 11:58 | disposition home or self-care (01) | LOC: NCHCN 11:57 | PROVIDERS: PCP Family Medicine; Visit Provider Physician Assistant Medical | DX: R41.0 Disorientation, unspecified (principal); R82.998 Other abnormal findings in urine | CPT/HCPCS: 87086 ==

== ENCOUNTER 2021-09-02 03:36 | Outpatient (CLI) | payer MEDICARE, MEDICAID, SELFPAY ==
[2021-09-02 11:48] LABS: Abs Immature Grans 0.04 10^3/uL (0.0-0.06); Absolute Basophil Count 0.05 10^3/uL (0.0-0.2); Absolute Eosinophil Count 0.01 10^3/uL (0.0-0.7); Absolute Lymphocyte Count 3.28 10^3/uL (1.2-3.4); Absolute Monocyte Count 0.78 10^3/uL (0.1-0.8); Basophils % 0.5; Eosinophils % 0.1; HCT 52.4 % (40.0-50.0); HGB 17.6 g/dL (13.5-17.5); Immature Grans % 0.4; Lymphocytes % 30.5; MCH 30.9 pg (27.0-33.0); MCHC 33.6 % (32.0-36.0); MCV 91.9 fL (80-95); MPV 10.8 fL (8.0-11.0); Monocytes % 7.2; Neutrophils % 61.3; Nucleated RBC 0 %; Platelet Count 287 10^3/uL (130-400); RDW 12.2 % (11.8-14.1); RDW-SD 41.4 fL; WBC 10.76 10^3/uL (4.4-10.8)
== END 2021-09-02 03:37 | disposition home or self-care (01) ==
LOC: LBO 03:36
PROVIDERS: PCP Family Medicine; Visit Provider Psychiatry & Neurology Psychiatry
DX: F25.0 Schizoaffective disorder, bipolar type (principal); Z79.899 Other long term (current) drug therapy
CPT/HCPCS: 36415; 85025

== ENCOUNTER 2021-09-03 03:43 | Emergency (ER) | payer MEDICARE, MEDICAID, SELFPAY ==
[2021-09-03] VITALS (25 sets, daily range): BP systolic 99–120; BP diastolic 60–81; PULSE 81–108; RESP 11–19; TEMP 36.4; O2SAT 86–98
--- NOTE | 2021-09-03 03:45 | DI.CT_ITS ---
Exam(s) CT HEAD CERVICAL SPINE WO EXAM: CT HEAD CERVICAL SPINE WO CLINICAL HISTORY: fall, altered. TECHNIQUE: Imaging Protocol: Axial computed tomography images with coronal and sagittal reformatted images were created and reviewed COMPARISON: CT CT HEAD WO from 08/10/2021 FINDINGS: The examination is limited due to patient motion artifact. CT Head: Ventricles and Extra axial spaces: Normal in size and morphology for the patient's age. Hemorrhage: None. Cerebral parenchyma: Normal. Midline shift: None. Brainstem/Cerebellum: Normal. Calvarium: Normal. Visualized Paranasal sinuses/Mastoids: Clear. Soft Tissues: Unremarkable. CT Cervical Spine: Bones: No acute fracture or subluxation. There are degenerative changes in the cervical spine. Soft Tissues: Unremarkable. Lung Apices: Clear. IMPRESSION: 1. No acute intracranial process. 2. No acute fracture or subluxation in the cervical spine. RADIATION DOSE DELIVERED: 1,362.39mGy.cm Total DLP DATA REPOSITORY: All CT scans at this facility are submitted to the National Radiology Data Registry (NRDR) Dose Index Registry (DIR) with the [employer] (ACR). RADIATION OPTIMIZATION: All CT scans at this facility use at least one of these dose optimization te chniques: automated exposure control; mA and/or kV adjustment per patient size (includes targeted exa ms where dose is matched to clinical indication); or iterative reconstruction.
--- NOTE | 2021-09-03 03:45 | DI.CT_ITS ---
Exam(s) CT CHEST/ABD/PEL WO CT THORACIC LUMBAR SPINE REC EXAM: CT CHEST/ABD/PEL WO and CT thoracic and lumbar spine recons CLINICAL HISTORY: fall, altered mental status. TECHNIQUE: Imaging Protocol: Axial computed tomography images with coronal and sagittal reformatted images were created and reviewed COMPARISON: CT CT CHEST PE CTA from 11/13/[address] THORACIC LUMBAR SPINE REC from 09/03/2021 FINDINGS: The examination is limited due to patient motion artifact. CHEST: Thyroid: Unremarkable as visualized. Tracheobronchial tree: Patent where visualized. Mediastinum and Spring: No dominant adenopathy or fluid collection. Pulmonary parenchyma: No consolidation or dominant measurable mass. No architectural distortion. The re is a 3 mm noncalcified pulmonary nodule in the lateral aspect of the right upper lobe. There is a calcified granuloma in the lateral aspect of the left upper lobe.Dependent atelectasis is present. Pleura: No effusion or pneumothorax. Lymph nodes: Within normal limits. Aorta: Thoracic portion non-dilated. Mild atherosclerosis. Heart: Not enlarged. Coronary artery calcifications are present. No pericardial effusion. Soft tissues: Bones: There is an old nonunited left 10th rib fracture. Thoracic spine recons: Degenerative changes are seen in the thoracic spine. No acute fracture or sub luxation is identified. ABDOMEN: Liver: Normal density. No measurable mass. Gallbladder and biliary tract: The gallbladder is not visualized. There is no biliary ductal dilatat ion. Pancreas: Normal density, no abnormal calcifications or inflammatory process. Spleen: Normal. Kidneys: Normal size, contour and axis. No radiodense stones or obstructive uropathy. No masses seen. Adrenal glands: No masses seen. Aorta: Abdominal portion non-dilated. Atherosclerosis. Lymph nodes: Within normal limits. Lumbar spine recons: Moderately severe degenerative changes are seen throughout the lumbar spine. No acute fracture or subluxation is seen in the lumbar spine. PELVIS: Bladder: Symmetric distention, no gross wall thickening. Bowel: No obstruction or bowel wall thickening. Normal appendix. Peritoneal cavity: No ascites, collection or mesenteric inflammatory response. Bones: Within normal limits. Reproductive organs: Within normal limits. IMPRESSION: 1. No acute thoracic, abdominal or pelvic injury. 2. No acute fracture or subluxation in the thoracic or lumbar spine. 3. Right upper lobe pulmonary nodule. An optional CT scan of the chest in 12 months may be obtained f or re-evaluation. (Liyah et al, 2017). RADIATION DOSE DELIVERED: 1811.09 mGy.cm Total DLP 1811.09 mGy.cm Total DLP DATA REPOSITORY: All CT scans at this facility are submitted to the National Radiology Data Registry (NRDR) Dose Index Registry (DIR) with the [employer] (ACR). RADIATION OPTIMIZATION: All CT scans at this facility use at least one of these dose optimization te chniques: automated exposure control; mA and/or kV adjustment per patient size (includes targeted exa ms where dose is matched to clinical indication); or iterative reconstruction.
--- NOTE | 2021-09-03 03:57 | W.ED.GENAD ---
Discharge Plan Disposition Patient Disposition: HOME Condition: Stable Discharge Details Clinical Impression: Fall, Hypothermia Primary Care Provider: Nisha Carrillo ED Provider: Germain Lambert Home Meds and New Rx's Prescriptions: Continued lisinopril 5 mg tablet 5 mg PO DAILY 0RF Eliquis 5 MG tablet 5 mg PO BID Qty: 180 12RF sennosides [senna] 8.6 MG tablet 8.6 mg PO BID PRN1 Days 0RF Rx Instructions: prn atorvastatin [Lipitor] 10 MG tablet 10 mg PO QPM 0RF divalproex 500 MG tablet extended release 24 hr 2,000 mg PO HS 0RF Rx Instructions: takes at 1600 thyroid (pork) [[place] Thyroid] 90 MG tablet 90 mg PO QAM 0RF melatonin 3 MG tablet extended release 3 mg PO HS PRN0RF ropinirole 1 mg Tablet 1 mg PO DIRECTED 0RF Rx Instructions: at 1600 albuterol sulfate [Ventolin HFA] 90 mcg/actuation [place]fa Aerosol Inhaler 2 puff INHALATION Q4H PRN0RF docusate sodium 100 mg capsule 200 mg PO BID PRN0RF calcium carbonate 500 mg calcium (1,250 mg) Tablet,Chewable 500 mg PO TID 0RF fluticasone propionate 50 mcg/actuation [place],Suspension 1 spray INTRANASAL Q12H 0RF furosemide 20 mg tablet 20 mg PO DAILY 0RF clozapine 25 mg Tablet 25 mg PO BID Qty: 2 0RF Rx Instructions: tonight and tomorrow morning (3) clozapine 25 mg Tablet 50 mg PO BID Qty: 12 0RF Rx Instructions: start 3 at HS, given bid through 312 am dose clozapine 25 mg Tablet 75 mg PO BID Qty: 15 0RF Rx Instructions: start 3 at HS through 3/15 am clozapine 100 mg Tablet 100 mg PO BID Qty: 10 0RF Rx Instructions: start 3 or per outpatient psychiatric team Discharge Instructions Additional Instructions: follow up with your primary care provider within 1-2 weeks if you feel more ill, have difficulty breathing or severe pain return to the emergency department Medical Decision Making 60 yo male with hx of afib, bipolar, chronic schizophrenia, DM, who comes in with ems after he was found outside his house. History obtained from ems who report patient was supposedly locked out of his house and while looking for keys outside his house fell and yelled. Neighbors heard him yell and called ems. EMS arrived and picked him up and brought him here. He arrives with stable vitals though extremities are cold, nursing had difficulty obtaining temp and placed a bear hugger over him. He is sleeping but will aditi and localize pain with his arms and withdraw his legs but isn't talking and can't provide any history. He has no signs of trauma to the head, perrl, soft abdomen, he does have abrasions to the anterior knee bilaterally without swelling or other deformity. Given the ams and reported fall and unable to evaluate his chest or abdomen for pain thoroughly will obtain ct head/cspine/chest/abd/pelvis to evaluate for traumatic injuries, and also evaluate for electrolyte abnormalities and reassess. labs and imaging unremarkable. Temp is now normal. He is sleeping but awakens to verbal stimuli and seems annoyed that people wake him up but he is oriented to person place and time. He has no complaints of pain and requests RCT to pick him up. HE was advised to f/u with his pcp and return precautions given Differential Diagnosis Differential Diagnosis: hypothermia, sdh, electrolyte abnormality Medical Records Medical records reviewed: Yes I reviewed the patient's medical records. Imaging Data Radiologic Study: Attestation: I personally reviewed and interpreted this imaging study as follows: Imaging: CT Scan Radiologist's impression: no acute findings head/c spine ct Radiologic Study #2: Attestation: I personally reviewed and interpreted this imaging study as follows: Imaging: X-Ray My impression: no acute findings left knee Radiologic Study #3: Attestation: I personally reviewed and interpreted this imaging study as follows: Imaging: X-Ray My impression: no acute findings right knee Radiologic Study #5: Attestation: I personally reviewed and interpreted this imaging study as follows: Imaging: CT Scan Radiologist's impression: no acute findings ct chest/abd/pelvis Lab Data Lab results reviewed: Yes I reviewed the patient's lab results. ECG Data Attestation: I personally reviewed and interpreted this ECG (s) as follows: Prior ECG tracings: available for review Interpretation: afib, rate of 80, no stemi HPI General Mode of arrival: EMS. Date/Time Provider Initiated Documentation: 09/03/21 03:50. Limitations to Documentation: altered mental status. Information obtained by: EMS. History of Present Illness 60 year old M presents to the emergency department with the chief complaint of fell outside his house, Patient started experiencing this unknown and it has been constant. improves with No relieving factors improve symptom(s), No exacerbating factors reported . Patient notes other (decreased level of consciousness). Patient did receive the following treatments prior to arrival, none Related Data Home Medications Medication Instructions Recorded Confirmed atorvastatin 10 mg tablet (Lipitor) 10 mg PO QPM 01/23/16 08/10/21 divalproex 500 mg tablet,extended 2,000 mg PO HS 01/23/16 08/10/21 release 24 hr melatonin 3 mg tablet,extended 3 mg PO HS PRN 01/23/16 08/25/21 release thyroid (pork) 90 mg tablet 90 mg PO QAM 01/23/16 08/25/21 ([place] Thyroid) apixaban 5 mg tablet (Eliquis) 5 mg PO BID #180 tab 07/20/17 08/10/21 sennosides 8.6 mg tablet (senna) 8.6 mg PO BID PRN 1 Days 07/28/17 08/25/21 albuterol sulfate 90 mcg/actuation 2 puff INHALATION Q4H PRN 03/27/19 08/10/21 aerosol inhaler (Ventolin HFA) ropinirole 1 mg tablet 1 mg PO DIRECTED 03/27/19 08/25/21 docusate sodium 100 mg capsule 200 mg PO BID PRN 11/13/20 08/25/21 calcium carbonate 500 mg calcium 500 mg PO TID 05/13/21 08/10/21 (1,250 mg) chewable tablet fluticasone propionate 50 1 spray INTRANASAL Q12H 05/13/21 08/25/21 mcg/actuation nasal spray,suspension lisinopril 5 mg tablet 5 mg PO DAILY 07/31/21 08/25/21 furosemide 20 mg tablet 20 mg PO DAILY 08/10/21 08/25/21 clozapine 100 mg tablet 100 mg PO BID #10 tab 08/13/21 clozapine 25 mg tablet 25 mg PO BID #2 tab 08/13/21 clozapine 25 mg tablet 50 mg PO BID #12 tab 08/13/21 clozapine 25 mg tablet 75 mg PO BID #15 tab 08/13/21 Previous Rx's Medication Instructions Recorded apixaban 5 mg tablet (Eliquis) 5 mg PO BID #180 tab 02/12/18 clozapine 100 mg tablet 100 mg PO BID #10 tab 08/13/21 clozapine 25 mg tablet 25 mg PO BID #2 tab 08/13/21 clozapine 25 mg tablet 50 mg PO BID #12 tab 08/13/21 clozapine 25 mg tablet 75 mg PO BID #15 tab 08/13/21 Allergies Allergy/AdvReac Type Severity Reaction Status Date / Time Penicillins AdvReac Intermediate black out Unverified 08/25/21 23:13 gabapentin AdvReac Mild Headache Unverified 08/25/21 23:13 niacin AdvReac Mild turn red Unverified 08/25/21 23:13 General Stated Complaint: ColdExpose MARY: 3 Review of Systems Unobtainable due to mental condition PFSH All Active Problems (Updated 09/03/21 @ 05:46 by Germain Lambert MD) Schizophrenia (Chronic) Headache (Acute) Fall (Acute) Hypothermia (Acute) Cellulitis (Acute) Cellulitis of left ankle (Acute) Blister of left foot (Acute) Hyperglycemia (Acute) Vitreous floaters of right eye (Acute) BRENNEN (acute kidney injury) (Acute) Screening for colorectal cancer (Acute) Medical History Afib Bipolar disorder Chronic schizophrenia Diabetes mellitus, type 2 Heel ulcer Non-ST elevation [place] (NSTEMI) Obesity Surgical History Colonoscopy - MAC (01/25/16) 2010 Excision, Lipoma Hx of cholecystectomy Hydrocelectomy Tonsillectomy Family History Mother No problems noted. Father Heart disease Brother Alcohol abuse Social History Smoking/Tobacco Use Status: Current-Occasional Tobacco Type: cigarettes Smoking risk assessment performed?: Yes Alcohol Intake: current Alcohol Intake frequency: holidays/special occasions only Alcohol type: beer and hard liquor Drug use: Current Sobriety Substance use type: does not use Do you feel safe at home: Yes Do you feel safe in your relationship?: Yes Exam Const General: other (sleeping, will groan and localize painful stimuli) Limitations: altered mental status HENMT Head: normal to inspection Ears: external ears normal General nose exam: external nose normal Mouth: moist mucous membranes Eyes General: appearance normal, both eyes and all related structures Neck Neck: normal visual inspection Resp Effort & Inspection: normal respiratory effort Cardio Rate: regular rate GI Palpation: soft Skin General skin exam: no rashes or lesions noted Extrem General: other (abrasions on anterior knees) Course Vital Signs Vital signs: Vital Signs Pulse 103 H 09/03/21 03:39 Respiratory Rate 18 09/03/21 03:39 Blood Pressure 108/69 09/03/21 03:39 Pulse Oximetry 98 09/03/21 03:39 Pulse 103 H 09/03/21 03:39 Respiratory Rate 18 09/03/21 03:39 Respiratory Effort 09/03/21 03:50 Respiratory Depth Normal 09/03/21 03:50 Respiratory Pattern Normal 09/03/21 03:50 Blood Pressure 108/69 09/03/21 03:39 Blood Pressure Position Supine 09/03/21 03:39 Pulse Oximetry 98 09/03/21 03:39 Oxygen Delivery Method Room Air 09/03/21 03:39 Oxygen Flow Rate 0 09/03/21 03:39 Pain Level 0 09/03/21 03:39
--- NOTE | 2021-09-03 04:00 | RT.EKG_ITS ---
APPROVED REPORT Exam: Resting ECG Reason for Exam: ?syncope Patient Location: E HR:85 bpm ECG Measurements Heart Rate 85 AXIS ID [id number] P [id number] QRSd 94 QRS 64 QT 446 T 40 QTc 545 Conclusion Atrial fibrillation...V-rate 63-102, irreg A-activity Minimal ST depression, diffuse leads...ST <-0.03mV, ant/lat/inf Prolonged QT interval...QTc >500mS
[2021-09-03] MEDS: Normal Saline 1,000 ML 1000 ML IV (04:02)
[2021-09-03 04:07] LABS: Source Nasal/Nares
[2021-09-03 04:10] LABS: Abs Immature Grans 0.05 10^3/uL (0.0-0.06); Absolute Basophil Count 0.02 10^3/uL (0.0-0.2); Absolute Eosinophil Count 0.01 10^3/uL (0.0-0.7); Absolute Lymphocyte Count 1.86 10^3/uL (1.2-3.4); Absolute Monocyte Count 0.36 10^3/uL (0.1-0.8); Absolute Neutrophil Count 6.04 10^3/uL (1.2-6.7); Basophils % 0.2; Eosinophils % 0.1; HCT 51.9 % (40.0-50.0); HGB 16.8 g/dL (13.5-17.5); Immature Grans % 0.6; Lymphocytes % 22.3; MCH 30.7 pg (27.0-33.0); MCHC 32.4 % (32.0-36.0); MCV 94.9 fL (80-95); MPV 11.4 fL (8.0-11.0); Monocytes % 4.3; Neutrophils % 72.5; Nucleated RBC 0 %; Platelet Count 226 10^3/uL (130-400); RBC 5.47 10^6/uL (4.36-5.78); RDW-SD 42.2 fL; WBC 8.34 10^3/uL (4.4-10.8)
[2021-09-03 04:22] LABS: VALPROIC ACID 54.6 ug/mL
[2021-09-03 04:24] LABS: INR 1.1 (0.9-1.1); PTT Activated 24.8 sec (21.0-27.5); Prothrombin Time 11.3 sec (9.3-11.0)
[2021-09-03 04:26] LABS: Troponin I < 50 ng/L (<or=60)
--- NOTE | 2021-09-03 04:30 | DI.RAD_ITS ---
Exam(s) XR KNEE LT 2V AP,LAT EXAM: XR KNEE LT 2V AP,LAT CLINICAL HISTORY: fall, abrasions. TECHNIQUE: 2D digital imaging was performed of the left knee. Two images were obtained. AP and lat eral views were obtained. COMPARISON: No priors for comparison FINDINGS: BONES: No acute fracture is present. No bony destructive lesion is seen. JOINTS: The knee is normally aligned. No joint effusion is seen. SOFT TISSUE: Soft tissue swelling anteriorly. IMPRESSION: No acute fracture or dislocation. DATA REPOSITORY: RADIATION DOSE DELIVERED:
--- NOTE | 2021-09-03 04:30 | DI.RAD_ITS ---
Exam(s) XR KNEE RT 2V AP,LAT EXAM: XR KNEE RT 2V AP,LAT CLINICAL HISTORY: fall, abrasions. TECHNIQUE: 2D digital imaging was performed of the right knee. Two views obtained. AP and lateral views were obtained. COMPARISON: No previous for comparison. FINDINGS: BONES: No acute fracture is present. No bony destructive lesion is seen. JOINTS: The knee is normally aligned. No joint effusion is seen. SOFT TISSUE: Soft tissue swelling anteriorly. IMPRESSION: No acute fracture or dislocation. DATA REPOSITORY: RADIATION DOSE DELIVERED:
[2021-09-03 04:35] LABS: ALT 33 U/L (16-63); AST 19 U/L (15-37); Albumin 3.7 g/dL (3.4-5.0); Alkaline Phosphatase 62 U/L (46-116); Anion Gap 15.6 mmol/L (3-11); BUN 29 mg/dL (7-18); Bilirubin, Total 0.4 mg/dL (0.2-1.0); CO2 22.4 mmol/L (21.0-32.0); CREATININE 1.2 mg/dL (0.70-1.30); Calcium 10.1 mg/dL (8.5-10.1); Chloride 101 mmol/L (98-107); Creatine Kinase 137 U/L (39-308); Glucose 169 mg/dL (74-106); Magnesium 1.8 mg/dL (1.8-2.4); Potassium 3.4 mmol/L (3.5-5.1); Sodium 139 mmol/L (136-145); TSH (W/Ref FT4) 1.36 uIU/mL (0.36-3.74); Total Protein 7.7 g/dL (6.4-8.2)
--- NOTE | 2021-09-03 04:37 | DI.VRAD_ITS ---
PROCEDURE INFORMATION: Exam: CT Head Without Contrast Exam date and time: 09/03/2021 4:06 AM Age: 60 years old Clinical indication: Injury or trauma; Fall; Blunt trauma (contusions or hematomas); With loss of consciousness; Not specified; Injury date: 09/03/21 TECHNIQUE: Imaging protocol: Computed tomography of the head without contrast. Radiation optimization: All CT scans at this facility use at least one of these dose optimization techniques: automated exposure control; mA and/or kV adjustment per patient size (includes targeted exams where dose is matched to clinical indication); or iterative reconstruction. COMPARISON: CT HEAD WO 08/10/2021 6:44 PM FINDINGS: Brain: Normal. No hemorrhage. Unremarkable white matter. No mass effect. Cerebral ventricles: No ventriculomegaly. Paranasal sinuses: Visualized sinuses are unremarkable. No fluid levels. Mastoid air cells: Visualized mastoid air cells are well aerated. Bones/joints: Unremarkable. No acute fracture. Soft tissues: Unremarkable. IMPRESSION: No acute intracranial abnormality. PROCEDURE INFORMATION: Exam: CT Cervical Spine Without Contrast Exam date and time: 09/03/2021 4:06 AM Age: 60 years old Clinical indication: Injury or trauma; Fall; Blunt trauma (contusions or hematomas); With loss of consciousness; Not specified; Injury date: 09/03/21 TECHNIQUE: Imaging protocol: Computed tomography images of the cervical spine without contrast. Radiation optimization: All CT scans at this facility use at least one of these dose optimization techniques: automated exposure control; mA and/or kV adjustment per patient size (includes targeted exams where dose is matched to clinical indication); or iterative reconstruction. COMPARISON: CT HEAD WO 08/10/2021 6:44 PM FINDINGS: Vertebrae: No acute fracture. Normal alignment. Multilevel degenerative disk disease and facet arthropathy with neuroforaminal and canal stenosis.. Soft tissues: Unremarkable. Lungs: Lung apices are normal. IMPRESSION: No acute findings. Dictated and Authenticated by: Germain Croft MD. Ordering:AGUSTO Groves MD
[2021-09-03 04:43] LABS: COVID-19 PCR Negative (Negative)
--- NOTE | 2021-09-03 05:21 | DI.VRAD_ITS ---
PROCEDURE INFORMATION: Exam: CT Chest Without Contrast; Diagnostic Exam date and time: 09/03/2021 4:28 AM Age: 60 years old Clinical indication: Injury or trauma; Generalized; Blunt trauma (contusions or hematomas); Injury date: 09/03/21; Injury details: Fall, AMS TECHNIQUE: Imaging protocol: Diagnostic computed tomography of the chest without contrast. 3D rendering (Not supervised by radiologist): MIP and/or 3D reconstructed images were created by the technologist. Radiation optimization: All CT scans at this facility use at least one of these dose optimization techniques: automated exposure control; mA and/or kV adjustment per patient size (includes targeted exams where dose is matched to clinical indication); or iterative reconstruction. COMPARISON: 1. CT CHEST PE CTA 11/13/2020 5:[address] ABDOMEN PELVIS W 03/27/2019 1:31 PM FINDINGS: Lungs: Dependent subsegmental atelectasis. Pleural spaces: No pneumothorax or pleural effusion. Heart: Heart top normal in size. Coronary artery calcifications. No pericardial effusion or pneumopericardium. Mediastinal space: Normal esophagus. No pneumomediastinum. Aorta: No aortic aneurysm. Lymph nodes: Unremarkable. No enlarged lymph nodes. Bones/joints: Chronic fracture of the left 10th rib. No acute fracture.The spine demonstrates mild degenerative changes at multiple levels. Soft tissues: Unremarkable. IMPRESSION: 1. No acute findings. 2. Several non emergent findings. PROCEDURE INFORMATION: Exam: CT Abdomen And Pelvis Without Contrast Exam date and time: 09/03/2021 4:28 AM Age: 60 years old Clinical indication: Injury or trauma; Generalized; Blunt trauma (contusions or hematomas); Injury date: 09/03/21; Injury details: Fall, AMS TECHNIQUE: Imaging protocol: Computed tomography of the abdomen and pelvis without contrast. 3D rendering (Not supervised by radiologist): MIP and/or 3D reconstructed images were created by the technologist. Radiation optimization: All CT scans at this facility use at least one of these dose optimization techniques: automated exposure control; mA and/or kV adjustment per patient size (includes targeted exams where dose is matched to clinical indication); or iterative reconstruction. COMPARISON: 1. CT CHEST PE CTA 11/13/2020 5:[address] ABDOMEN PELVIS W 03/27/2019 1:31 PM FINDINGS: Liver: There is diffuse decrease in hepatic parenchymal density, consistent with moderate fatty infiltration. Liver top normal in size. No mass. Gallbladder and bile ducts: Prior cholecystectomy. No biliary ductal dilatation. Pancreas: Normal. No ductal dilation. Spleen: Spleen intact. No splenomegaly. Adrenal glands: Normal. No mass. Kidneys and ureters: Normal. No hydronephrosis. Stomach and bowel: No dilated loops of small bowel or colonic dilatation. Scattered colonic diverticula. Appendix: Normal appendix. Intraperitoneal space: No free intraperitoneal gas or ascites. Vasculature: Unremarkable. No abdominal aortic aneurysm. Lymph nodes: Unremarkable. No enlarged lymph nodes. Urinary bladder: Unremarkable as visualized. Reproductive: Unremarkable as visualized. Bones/joints: The spine demonstrates mild degenerative changes at multiple levels. There are mild degenerative changes of the hip joints. No acute fracture. Soft tissues: Unremarkable. IMPRESSION: No acute findings. Dictated and Authenticated by: Mars Addison MD. Ordering:AGUSTO Groves MD
--- NOTE | 2021-09-03 05:28 | DI.VRAD_ITS ---
PROCEDURE INFORMATION: Exam: CT Thoracic Spine Without Contrast Exam date and time: 09/03/2021 4:28 AM Age: 60 years old Clinical indication: Injury or trauma; Blunt trauma (contusions or hematomas); Injury date: 09/03/21; Injury details: Fall, AMS TECHNIQUE: Imaging protocol: Computed tomography images of the thoracic spine without contrast. Radiation optimization: All CT scans at this facility use at least one of these dose optimization techniques: automated exposure control; mA and/or kV adjustment per patient size (includes targeted exams where dose is matched to clinical indication); or iterative reconstruction. COMPARISON: 1. CT HEAD CERVICAL SPINE WO 09/03/2021 4:[address] ABDOMEN PELVIS W 03/27/2019 1:31 PM FINDINGS: Vertebrae: No acute fracture. Normal alignment. Multilevel hypertrophic endplate degenerative changes Discs/Spinal canal/Neural foramina: No significant disc protrusion. No severe spinal canal stenosis. No significant neural foraminal narrowing. Soft tissues: Unremarkable. IMPRESSION: No acute fracture or subluxation. PROCEDURE INFORMATION: Exam: CT Lumbar Spine Without Contrast Exam date and time: 09/03/2021 4:28 AM Age: 60 years old Clinical indication: Injury or trauma; Blunt trauma (contusions or hematomas); Injury date: 09/03/21; Injury details: Fall, AMS TECHNIQUE: Imaging protocol: Computed tomography images of the lumbar spine without contrast. Radiation optimization: All CT scans at this facility use at least one of these dose optimization techniques: automated exposure control; mA and/or kV adjustment per patient size (includes targeted exams where dose is matched to clinical indication); or iterative reconstruction. COMPARISON: 1. CT HEAD CERVICAL SPINE WO 09/03/2021 4:[address] ABDOMEN PELVIS W 03/27/2019 1:31 PM FINDINGS: Vertebrae: No acute fracture. Normal alignment. Multilevel degenerative changes Discs/Spinal canal/Neural foramina: No significant disc protrusion. Multifactorial canal and bilateral foraminal stenosis at the L3-L4 and L4-L5 levels. Soft tissues: Unremarkable. IMPRESSION: 1. No acute fracture or subluxation. 2. Multilevel degenerative changes. 3. Multifactorial canal and bilateral foraminal stenosis at L3-L4 and L4-L5 levels. Dictated and Authenticated by: Mars Addison MD. Ordering:AGUSTO Groves MD
--- NOTE | 2021-09-03 05:35 | DI.VRAD_ITS ---
PROCEDURE INFORMATION: Exam: XR Left Knee Exam date and time: 09/03/2021 4:41 AM Age: 60 years old Clinical indication: Injury or trauma; Blunt trauma and laceration; Bilateral; Patella or knee; Foreign body involvement not specified; Injury date: 09/03/21; Injury details: Fall, lacerations/ abrasions to both knees TECHNIQUE: Imaging protocol: XR Left knee. Views: 1 or 2 views. COMPARISON: No relevant prior studies available. FINDINGS: Bones/joints: No acute fracture or subluxation. Medial and patellofemoral joint space compartments are narrowed. No joint effusion. Soft tissues: Soft tissue swelling anteriorly. IMPRESSION: 1. No acute fracture or subluxation. 2. Soft tissue swelling. Dictated and Authenticated by: Mars Addison MD. Ordering:AGUSTO Groves MD
--- NOTE | 2021-09-03 05:35 | DI.VRAD_ITS ---
PROCEDURE INFORMATION: Exam: XR Right Knee Exam date and time: 09/03/2021 4:43 AM Age: 60 years old Clinical indication: Injury or trauma; Blunt trauma and laceration; Bilateral; Patella or knee; Foreign body involvement not specified; Injury date: 09/03/21; Injury details: Fall, lacerations on both knees TECHNIQUE: Imaging protocol: XR Right knee. Views: 3 views. COMPARISON: US RIGHT EXTREMITY ULTRASOUND 01/22/2017 1:38 PM FINDINGS: Bones/joints: No acute fracture or subluxation. Patellofemoral and medial joint space compartments are narrowed. No joint effusion. Soft tissues: Soft tissue swelling anteriorly. IMPRESSION: 1. No fracture or subluxation. 2. Soft tissue swelling. Dictated and Authenticated by: Mars Addison MD. Ordering:AGUSTO Groves MD
--- NOTE | 2021-09-10 07:34 | NUR.NOTE ---
Nursing Note: [facility] [place] asking if pt still needing placement. Marisa Restrepo
== END 2021-09-03 07:30 | disposition home or self-care (01) ==
LOC: ER 06:31
PROVIDERS: Emergency Provider Emergency Medicine; PCP Family Medicine
DX: T68.XXXA Hypothermia, initial encounter (principal); M79.602 Pain in left arm; M79.601 Pain in right arm; W19.XXXA Unspecified fall, initial encounter; Z79.01 Long term (current) use of anticoagulants
CPT/HCPCS: 71250; 80053; 82550; 87635; 93005; 96361; 99285; 70450; 72125; 73560; 74176; 80164; 83735; 84443; 84484; 85025; 85610; 85730; 93010

== ENCOUNTER 2021-09-09 04:12 | Outpatient (CLI) | payer MEDICARE, MEDICAID, SELFPAY ==
[2021-09-09 09:55] LABS: Abs Immature Grans 0.05 10^3/uL (0.0-0.06); Absolute Basophil Count 0.06 10^3/uL (0.0-0.2); Absolute Eosinophil Count 0.05 10^3/uL (0.0-0.7); Absolute Lymphocyte Count 2.71 10^3/uL (1.2-3.4); Absolute Monocyte Count 0.89 10^3/uL (0.1-0.8); Absolute Neutrophil Count 8.09 10^3/uL (1.2-6.7); Basophils % 0.5; Eosinophils % 0.4; HCT 50.8 % (40.0-50.0); HGB 17.2 g/dL (13.5-17.5); Immature Grans % 0.4; Lymphocytes % 22.9; MCH 30.9 pg (27.0-33.0); MCHC 33.9 % (32.0-36.0); MCV 91.4 fL (80-95); MPV 11.8 fL (8.0-11.0); Monocytes % 7.5; Neutrophils % 68.3; Nucleated RBC 0 %; Platelet Count 247 10^3/uL (130-400); RBC 5.56 10^6/uL (4.36-5.78); RDW-SD 40.8 fL; WBC 11.85 10^3/uL (4.4-10.8)
== END 2021-09-09 04:13 | disposition home or self-care (01) ==
LOC: LBO 04:12
PROVIDERS: PCP Family Medicine; Visit Provider Psychiatry & Neurology Psychiatry
DX: F25.0 Schizoaffective disorder, bipolar type (principal); Z79.899 Other long term (current) drug therapy
CPT/HCPCS: 36415; 85025

== ENCOUNTER 2021-09-12 18:51 | Outpatient (REF) | payer MEDICARE, MEDICAID, SELFPAY ==
[2021-09-12 17:35] LABS: Anion Gap 8.9 mmol/L (3-11); BUN 33 mg/dL (7-18); CO2 32.1 mmol/L (21.0-32.0); Calcium 10.1 mg/dL (8.5-10.1); Chloride 100 mmol/L (98-107); Folate 7.5 ng/mL (8.6-20.0); Glucose 131 mg/dL (74-106); Potassium 3.7 mmol/L (3.5-5.1); Sodium 141 mmol/L (136-145); Vitamin B12 480 pg/mL (193-986)
[2021-09-15 10:45] LABS: HIV-1/2 Ag & Ab Screen Negative (Negative)
[2021-09-16 11:02] LABS: Syphilis Serology (RPR) Negative (Negative)
== END 2021-09-12 18:52 | disposition home or self-care (01) ==
LOC: NCHCN 18:51
PROVIDERS: PCP Family Medicine; Visit Provider Family Medicine
DX: R41.82 Altered mental status, unspecified (principal)
CPT/HCPCS: 80048; 87389; 82607; 82746; 86592

== ENCOUNTER 2021-09-14 14:54 | Inpatient (IN) | payer MEDICARE, MEDICAID, SELFPAY ==
[2021-09-14 14:42] VITALS: BP 95/59; PULSE 96; RESP 18; TEMP 36.6; O2SAT 94
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
--- NOTE | 2021-09-14 15:00 | RT.EKG_ITS ---
APPROVED REPORT Exam: Resting ECG Reason for Exam: AMS Patient Location: E HR:91 bpm ECG Measurements Heart Rate 91 AXIS NM [id number] P [id number] QRSd 96 QRS 72 QT 431 T 55 QTc 531 Conclusion Atrial fibrillation...V-rate 70-108, irreg A-activity Consider anteroseptal infarct...Q >30mS, dimin R, V1-V2 Prolonged QT interval...QTc >500mS. Afib. No STEMI. I have reviewed and interpreted ECG and agree with software generated interpretation.
[2021-09-14 15:17] LABS: Abs Immature Grans 0.08 10^3/uL (0.0-0.06); Absolute Basophil Count 0.04 10^3/uL (0.0-0.2); Absolute Eosinophil Count 0.04 10^3/uL (0.0-0.7); Absolute Lymphocyte Count 2.49 10^3/uL (1.2-3.4); Absolute Monocyte Count 1.11 10^3/uL (0.1-0.8); Absolute Neutrophil Count 10.69 10^3/uL (1.2-6.7); Basophils % 0.3; Eosinophils % 0.3; HGB 15.8 g/dL (13.5-17.5); Immature Grans % 0.6; Lymphocytes % 17.2; MCH 30.7 pg (27.0-33.0); MCHC 33.6 % (32.0-36.0); MCV 91.4 fL (80-95); MPV 11.5 fL (8.0-11.0); Monocytes % 7.7; Neutrophils % 73.9; Nucleated RBC 0 %; Platelet Count 181 10^3/uL (130-400); RBC 5.14 10^6/uL (4.36-5.78); RDW 11.9 % (11.8-14.1); RDW-SD 39.9 fL; WBC 14.46 10^3/uL (4.4-10.8)
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
[2021-09-14 15:36] LABS: Troponin I < 50 ng/L (<or=60)
[2021-09-14 15:39] LABS: ALT 24 U/L (16-63); AST 13 U/L (15-37); Albumin 3.2 g/dL (3.4-5.0); Alkaline Phosphatase 62 U/L (46-116); BUN 38 mg/dL (7-18); Bilirubin, Total 0.7 mg/dL (0.2-1.0); CREATININE 1.4 mg/dL (0.70-1.30); Calcium 8.9 mg/dL (8.5-10.1); Chloride 100 mmol/L (98-107); Estimated GFR 51.35 (mL/min/1.73m2); Glucose 114 mg/dL (74-106); Potassium 3.2 mmol/L (3.5-5.1); Sodium 139 mmol/L (136-145); TSH (W/Ref FT4) 1.16 uIU/mL (0.36-3.74); Total Protein 7.3 g/dL (6.4-8.2)
[2021-09-14 15:52] LABS: ETHANOL BLOOD < 3.0 mg/dL (<10)
[2021-09-14 16:03] LABS: Acetaminophen < 2 ug/mL (10-30); Salicylate < 2.8 mg/dL (<2.8)
[2021-09-14] MEDS: POTASSIUM CHLORIDE 20 MEQ, POTASSIUM CHLORIDE 10 MEQ 30 MEQ PO (18:10)
[2021-09-14] MEDS: Normal Saline 1,000 ML 1000 ML IV (18:10)
[2021-09-14 19:22] LABS: Bilirubin Moderate (Negative); Blood Negative (Negative); Clarity Clear (Clear); Glucose Negative (Negative); Ketones 15 mg/dL (Negative); Leukocyte Esterase Negative (Negative); Nitrite Negative (Negative); Specific Gravity 1.025 (1.005-1.025)
[2021-09-14 19:31] LABS: *AMPHETAMINES SCREEN URINE Negative (Negative); *BARBITURATES SCREEN URINE Negative (Negative); *BENZODIAZEPINES SCREEN URINE Negative (Negative); Cannabinoids THC Negative (Negative); Cocaine Screen,Urine Negative (Negative); METHADONE URINE SCREEN Negative (Negative); OPIATES URINE SCREEN Negative (Negative)
[2021-09-14 19:32] LABS: Tricyclic Antidepressants Negative (Negative)
[2021-09-14 19:36] LABS: Bacteria Negative HPF (Negative); C & S Indicated? No; Crystals Negative HPF (Negative); Epithelial Cells Many HPF (Negative); Mucus Heavy (Negative); RBC 0-2 HPF (0-2)
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
[2021-09-14 21:34] LABS: Source Nasal/Nares
[2021-09-14 22:11] LABS: COVID-19 PCR Negative (Negative)
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
[2021-09-14 22:41] VITALS: BP 94/61; PULSE 87; RESP 18; TEMP 36.1; O2SAT 97
[2021-09-15 07:17] LABS: Anion Gap 7.7 mmol/L (3-11); BUN 29 mg/dL (7-18); CO2 28.3 mmol/L (21.0-32.0); CREATININE 0.8 mg/dL (0.70-1.30); Calcium 8.4 mg/dL (8.5-10.1); Chloride 103 mmol/L (98-107); Glucose 121 mg/dL (74-106); Potassium 3.5 mmol/L (3.5-5.1); Sodium 139 mmol/L (136-145)
[2021-09-15 07:55] VITALS: BP 104/64; PULSE 82; RESP 18; TEMP 35.5; O2SAT 95
[2021-09-15] MEDS: Furosemide 20 MG TAB PO (08:08)
[2021-09-15] MEDS: Apixaban 5 MG TAB PO ×2 (08:08→21:23)
[2021-09-15] MEDS: Lisinopril 5 MG TAB PO (08:08)
[2021-09-15] MEDS: Potassium Chloride 20 MEQ TABCR 40 MEQ PO ×2 (08:09→21:24)
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
--- NOTE | 2021-09-15 13:09 | CMSP_ITS ---
- If Service Date Differs Date of service: 09/15/21 Time of Service: 13:09 Care Management Safety Plan Status: Voluntary - Reason for Wait Reason for Wait: Inpatient Admission, Community Placement VOLUNTARY FOR INPATIENT PSYCHIATRIC STABILIZATION. Patient is appropriate in all interactions since arriving at [facility]; Pt has demonstrated appropriate coping and communication skills, has articulated his or her needs and concerns and is fully engaged during staff interactions. Safety plan has been established with patient, and care team, to adhere to patient goals, identify restrictions based on behavioral status, address nutrition, and determine allowed personal belongings, tools for hygiene and personal care. Determine level of activity including ambulation, level of supervision, visitors, and determine privileges based on behaviors and level of engagement by pt. SAFETY PLAN: 1. Will remain on suicide precautions. In Paper Clothes 2. Will remain in room under direct supervision of one-on-one staff at all times provided by [employer]; NBA, CAFE LEAD meter supervisor. 3. May have paper cups, plates, finger foods as well as a cardboard spoon with which to eat meals. 4. Follow [facility] Management of the Admitted Behavioral Health Patient policy. 5. Comfort bath system only, shower permitted with escort at RN discretion. 6. No personal belongings-soft items permitted at RN discretion. 7. Visitors- learning support aide from [facility]. 8. Activities: soft cart items approved per RN discretion. 9. Bathroom privileges with escort in the ED, available in room without limitation on M/S. 10. Phone: contact limited to family or [facility] learning support aide at this time, via cordless phone at RN discretion. 11. Due to VOLUNTARY status, if patient wishes to leave [facility], staff will contact [facility] Crisis Screener ([phone]) and On-Call Venetian Blind Machine Operator ([phone]) as soon as possible. In the event of elopement, notify [place] [employer] ([phone]). Patient is currently voluntarily at [facility] and seeking inpatient admission when a bed becomes available. [facility] Frontline Pewter Fabricator will continue seeking placement. Please contact the Mortuary Beautician Venetian Blind Machine Operator ([phone]) and [facility] Pewter Fabricator ([phone]) for any needed changes in the Safety Plan. Safety plan has been provided to interdepartmental care team.
--- NOTE | 2021-09-15 13:09 | PDOC.CMSAFE ---
- If Service Date Differs Date of service: 09/15/21 Time of Service: 13:09 Care Management Safety Plan Status: Voluntary - Reason for Wait Reason for Wait: Inpatient Admission, Community Placement VOLUNTARY FOR INPATIENT PSYCHIATRIC STABILIZATION. Patient is appropriate in all interactions since arriving at [facility]; Pt has demonstrated appropriate coping and communication skills, has articulated his or her needs and concerns and is fully engaged during staff interactions. Safety plan has been established with patient, and care team, to adhere to patient goals, identify restrictions based on behavioral status, address nutrition, and determine allowed personal belongings, tools for hygiene and personal care. Determine level of activity including ambulation, level of supervision, visitors, and determine privileges based on behaviors and level of engagement by pt. SAFETY PLAN: 1. Will remain on suicide precautions. In Paper Clothes 2. Will remain in room under direct supervision of one-on-one staff at all times provided by [employer]; NBA, ACTIVITY DIRECTOR director of assessing. 3. May have paper cups, plates, finger foods as well as a cardboard spoon with which to eat meals. 4. Follow [facility] Management of the Admitted Behavioral Health Patient policy. 5. Comfort bath system only, shower permitted with escort at RN discretion. 6. No personal belongings-soft items permitted at RN discretion. 7. Visitors- work station support specialist from [facility]. 8. Activities: soft cart items approved per RN discretion. 9. Bathroom privileges with escort in the ED, available in room without limitation on M/S. 10. Phone: contact limited to family or [facility] work station support specialist at this time, via cordless phone at RN discretion. 11. Due to VOLUNTARY status, if patient wishes to leave [facility], staff will contact [facility] Crisis Screener ([phone]) and On-Call Credit Review Officer ([phone]) as soon as possible. In the event of elopement, notify [place] [employer] ([phone]). Patient is currently voluntarily at [facility] and seeking inpatient admission when a bed becomes available. [facility] Frontline Fisher [employer]para [employer] will continue seeking placement. Please contact the Personal Care Aide Credit Review Officer ([phone]) and [facility] Fisher Lampara Net ([phone]) for any needed changes in the Safety Plan. Safety plan has been provided to interdepartmental care team.
[2021-09-15] MEDS: rOPINIRole 1 MG TAB PO (15:47)
[2021-09-15] MEDS: Senna TAB 1 TAB PO (15:47)
[2021-09-15] MEDS: Docusate Sodium 100 MG CAP 200 MG PO (15:47)
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
[2021-09-15 19:35] VITALS: BP 101/69; PULSE 94; RESP 18; TEMP 36.7; O2SAT 96
[2021-09-15] MEDS: Atorvastatin 10 MG TAB PO (21:23)
[2021-09-15] MEDS: Divalproex Sodium 500 MG TAB.ER.24H 2000 MG PO (21:25)
--- NOTE | 2021-09-16 05:54 | NUR.NOTE ---
Nursing Note: This Rn on break from [id number]. [employer] INSTRUCTOR gave lunch relief during this time.
[2021-09-16] MEDS: Apixaban 5 MG TAB PO (07:53)
[2021-09-16] MEDS: Lisinopril 5 MG TAB PO (07:54)
[2021-09-16] MEDS: Potassium Chloride 20 MEQ TABCR 40 MEQ PO (07:54)
[2021-09-16] MEDS: Furosemide 20 MG TAB PO (07:54)
[2021-09-16 08:30] VITALS: BP 100/57; PULSE 69; RESP 17; TEMP 36.6; O2SAT 95
--- NOTE | 2021-09-16 09:45 | CMPROGNOTE_ITS ---
- If Service Date Differs Date of service: 09/16/21 Time of Service: 09:45 Care Management Progress Note S/O: CM spoke with Iesha/COMMODITY SPECIALIST from [facility], who advises that inpatient psych referral's for Judd are pending at [facility] and notes that the Care Bed may be able to take him Thursday. Iesha shares that although these referrals are pending, she doesn't feel Judd needs inpatient psych placement, stating that he would be more appropriate for level 3 placement shelter placement. A huddle took place at 12pm today (Attending: RN stonework supervisor Pilar, RN coordinator Gabi and Mary, Primary RN Charles, CM Mirna, Jessica, Mirna, Natalee and Ashley [facility]). CM called [facility] to seek clarification on Judd's need for hospital level treatment and ability to safety plan home with Community supports. Iesha is going to speak with her stonework supervisor to sort out Judd's chronic vs. acute needs, as she is not ready to safety plan Judd home but also does not feel he needs inpatient psych. CM suggested to Iesha, that it's likely time for Judd's COMMODITY SPECIALIST team to start looking into [facility] in order to help facilitate shelter care placement if needed. A: Judd is a 60 year old male admitted to [facility] on 09/14/21 with schizophrenia and worsening delusional thoughts. P: Per [facility], Judd meets criteria for inpatient psychiatric hospitalization vs crisis bed. Referrals for psychiatric placement are pending. He will follow up with his PCP, his care team at [facility], and his discharge plan of care. CM will continue to follow.
--- NOTE | 2021-09-16 09:45 | PDOC.CMPRO ---
- If Service Date Differs Date of service: 09/16/21 Time of Service: 09:45 Care Management Progress Note S/O: CM spoke with Iesha/SAMPLE BUILDER from [facility], who advises that inpatient psych referral's for Judd are pending at [facility], [facility] and notes that the Care Bed may be able to take him Thursday. Iesha shares that although these referrals are pending, she doesn't feel Judd needs inpatient psych placement, stating that he would be more appropriate for level 3 placement longterm placement. A huddle took place at 12pm today (Attending: RN potato chip processing supervisor Pilar, RN coordinator Gabi and Mary, Primary RN Charles, CM Mirna, Jessica, Mirna, Natalee and Ashley [facility]). CM called [facility] to seek clarification on Judd's need for hospital level treatment and ability to safety plan home with Community supports. Iesha is going to speak with her potato chip processing supervisor to sort out Judd's chronic vs. acute needs, as she is not ready to safety plan Judd home but also does not feel he needs inpatient psych. CM suggested to Iesha, that it's likely time for Judd's SAMPLE BUILDER team to start looking into [facility] in order to help facilitate longterm care placement if needed. A: Judd is a 60 year old male admitted to [facility] on 09/14/21 with schizophrenia and worsening delusional thoughts. P: Per [facility], Judd meets criteria for inpatient psychiatric hospitalization vs crisis bed. Referrals for psychiatric placement are pending. He will follow up with his PCP, his care team at [facility], and his discharge plan of care. CM will continue to follow.
--- NOTE | 2021-09-16 09:47 | CMSP_ITS ---
- If Service Date Differs Date of service: 09/16/21 Time of Service: 09:47 Care Management Safety Plan Status: Voluntary - Reason for Wait Reason for Wait: Inpatient Admission, Community Placement VOLUNTARY FOR INPATIENT PSYCHIATRIC STABILIZATION. Patient is appropriate in all interactions since arriving at [facility]; Pt has demonstrated appropriate coping and communication skills, has articulated his or her needs and concerns and is fully engaged during staff interactions. Safety plan has been established with patient, and care team, to adhere to patient goals, identify restrictions based on behavioral status, address nutriti on, and determine allowed personal belongings, tools for hygiene and personal care. Determine level of activity including ambulation, level of supervision, visitors, and determine privileges based on behaviors and level of engagement by pt. SAFETY PLAN: 1. Will remain on suicide precautions. In Paper Clothes 2. Will remain in room under direct supervision of one-on-one staff at all times provided by [employer]; NBA, PRODUCT TECHNICIAN supervisor firearms. 3. May have paper cups, plates, finger foods as well as a cardboard spoon with which to eat meals. 4. Follow [facility] Management of the Admitted Behavioral Health Patient policy. 5. Comfort bath system only, shower permitted with escort at RN discretion. 6. No personal belongings-soft items permitted at RN discretion. 7. Visitors- technician support engineer from [facility]. 8. Activities: soft cart items approved per RN discretion. 9. Bathroom privileges with escort in the ED, available in room without limitation on M/S. 10. Phone: contact limited to family or [facility] technician support engineer at this time, via cordless phone at RN discretion. 11. Due to VOLUNTARY status, if patient wishes to leave [facility], staff will contact [facility] Crisis Screener ([phone]) and On-Call Boiling Tub Operator ([phone]) as soon as possible. In the event of elopement, notify [facility] Police ([phone]). Patient is currently voluntarily at [facility] and seeking inpatient admission when a bed becomes available. [facility] Frontline Fish Straightener will continue seeking placement. Please contact the Loan Servicing Specialist Boiling Tub Operator ([phone]) and [facility] Fish Straightener ([phone]) for any needed changes in the Safety Plan. Safety plan has been provided to interdepartmental care team.
--- NOTE | 2021-09-16 09:47 | PDOC.CMSAFE ---
- If Service Date Differs Date of service: 09/16/21 Time of Service: 09:47 Care Management Safety Plan Status: Voluntary - Reason for Wait Reason for Wait: Inpatient Admission, Community Placement VOLUNTARY FOR INPATIENT PSYCHIATRIC STABILIZATION. Patient is appropriate in all interactions since arriving at [facility]; Pt has demonstrated appropriate coping and communication skills, has articulated his or her needs and concerns and is fully engaged during staff interactions. Safety plan has been established with patient, and care team, to adhere to patient goals, identify restrictions based on behavioral status, address nutrition, and determine allowed personal belongings, tools for hygiene and personal care. Determine level of activity including ambulation, level of supervision, visitors, and determine privileges based on behaviors and level of engagement by pt. SAFETY PLAN: 1. Will remain on suicide precautions. In Paper Clothes 2. Will remain in room under direct supervision of one-on-one staff at all times provided by [employer]; NBA, CONTAINER WASHER MACHINE commercial fishing vessel operator. 3. May have paper cups, plates, finger foods as well as a cardboard spoon with which to eat meals. 4. Follow [facility] Management of the Admitted Behavioral Health Patient policy. 5. Comfort bath system only, shower permitted with escort at RN discretion. 6. No personal belongings-soft items permitted at RN discretion. 7. Visitors- desktop support associate from [facility]. 8. Activities: soft cart items approved per RN discretion. 9. Bathroom privileges with escort in the ED, available in room without limitation on M/S. 10. Phone: contact limited to family or [facility] desktop support associate at this time, via cordless phone at RN discretion. 11. Due to VOLUNTARY status, if patient wishes to leave [facility], staff will contact [facility] Crisis Screener ([phone]) and On-Call Process Control Specialist ([phone]) as soon as possible. In the event of elopement, notify [place] [employer] Police ([phone]). Patient is currently voluntarily at [facility] and seeking inpatient admission when a bed becomes available. [facility] Frontline Construction Project Manager will continue seeking placement. Please contact the Warehouse Order Picker Process Control Specialist ([phone]) and [facility] Construction Project Manager ([phone]) for any needed changes in the Safety Plan. Safety plan has been provided to interdepartmental care team.
--- NOTE | 2021-09-16 11:37 | NUR.NOTE ---
Patient got up to use bathroom. Then proceeded to come to the door and this automobile and property underwriter greeted him. Patient stated that he was unsatisfied and that it's Not working out because he can't shave. I reassured the patient that it was for safety measures. Then the patient stated he did not get what he wanted for breakfast. I told the patient that the next time someone from dietary comes up that we will make sure he gets what he would like so that breakfast is more enjoyable for him. Ag went back to his bed and laid down. Nursing Note:
--- NOTE | 2021-09-16 12:05 | W.INDIABCONS ---
Date of service: 09/16/21 Time of Service: 12:05 Diabetes Inpatient Consult Reason for Visit: dm DESCRIPTION/ASSESSMENT: Diabetes education consult noted. Most recent A1C: 6.4% indicating pre diabetes. Not appropriate for education at this time. Meeting nutritional needs. Time Spent in Nutritional Counseling and Treatment: 0
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
[2021-09-16 15:03] VITALS: BP 109/69; PULSE 81; RESP 18; TEMP 35.7; O2SAT 91
--- NOTE | 2021-09-16 15:28 | CMDISCH_ITS ---
- If Service Date Differs Date of service: 09/16/21 Time of Service: 15:28 LACE Index Scoring Tool - Questions: Length of Stay (in days): 2 Acuity (Admit via E.D.?): Yes Comorbidities: Previous M.I., Diabetes w/o Complication E.D. Visits: 9 - Answers: Total Score: 11 Risk of Readmission: High Risk Care Management Discharge Reason for Hospitalization: Schizophrenia and worsening delusional thoughts. Discharge Plan: Per Iesha/CASH ROOM CLERK [facility], inpatient psych referral's are pending at [facility], [facility] and [place] and the Carebed is full until atleast Thursday. Also per Iesha, Judd does not need inpatient Psych placement, he is more a canidate for a level 3 facility for [place] [facility] [place]. Iesha will continue process from the community. Judd is discharged back to the community. CASH ROOM CLERK will evaluate and intiate appropriate community services. Judd will transport via [facility] and follow up with community providers. Patient/Family Education Needs: Review discharge instructions, limitations, medications and plan to follow up with CASH ROOM CLERK and community providers. ask me three. Services Needed at Discharge: Transportation - MH Services (Omit if N/A) Current MH Services: CASH ROOM CLERK (Client of CASH ROOM CLERK)
--- NOTE | 2021-09-16 15:28 | PDOC.CMDIS ---
- If Service Date Differs Date of service: 09/16/21 Time of Service: 15:28 LACE Index Scoring Tool - Questions: Length of Stay (in days): 2 Acuity (Admit via E.D.?): Yes Comorbidities: Previous M.I., Diabetes w/o Complication E.D. Visits: 9 - Answers: Total Score: 11 Risk of Readmission: High Risk Care Management Discharge Reason for Hospitalization: Schizophrenia and worsening delusional thoughts. Discharge Plan: Per Iesha/DIRECTOR LOAN [facility], inpatient psych referral's are pending at [facility], [facility] and [place] and the Carebed is full until atleast Thursday. Also per Iesha, Judd does not need inpatient Psych placement, he is more a canidate for a level 3 facility for shelter placement. Iesha will continue process from the community. Judd is discharged back to the community. DIRECTOR LOAN will evaluate and intiate appropriate community services. Judd will transport via [facility] and follow up with community providers. Patient/Family Education Needs: Review discharge instructions, limitations, medications and plan to follow up with DIRECTOR LOAN and community providers. ask me three. Services Needed at Discharge: Transportation - MH Services (Omit if N/A) Current MH Services: DIRECTOR LOAN (Client of DIRECTOR LOAN)
== END 2021-09-16 15:23 | disposition other institution (70) | DRG 885 ==
LOC: ER 21:23 → MS 22:27
PROVIDERS: Registered Nurse Emergency; Admitting Provider Family Medicine; Emergency Provider Nurse Practitioner Family; PCP Family Medicine; Visit Provider Family Medicine
DX: F20.9 Schizophrenia, unspecified (principal); F22 Delusional disorders; F31.9 Bipolar disorder, unspecified; E87.6 Hypokalemia; I48.91 Unspecified atrial fibrillation; E11.9 Type 2 diabetes mellitus without complications; I25.2 Old myocardial infarction; F17.210 Nicotine dependence, cigarettes, uncomplicated; E66.3 Overweight; Z68.27 Body mass index [BMI] 27.0-27.9, adult
CPT/HCPCS: 36415; 80048; 80053; 80307; 87635; 93005; 96360; 99285; 80320; 80329; 81003; 81015; 84443; 84484; 85025; 93010; 99222; 99231; 99238; J3490

== ENCOUNTER 2021-09-16 02:47 | Outpatient (CLI) | payer MEDICARE, MEDICAID, SELFPAY | END 2021-09-16 02:48 | disposition home or self-care (01) | LOC: LBO 02:47 | PROVIDERS: PCP Family Medicine; Visit Provider Psychiatry & Neurology Psychiatry ==

== ENCOUNTER 2021-09-18 10:32 | Emergency (ER) | payer MEDICARE, MEDICAID, SELFPAY ==
[2021-09-18 10:36] VITALS: BP 101/62; PULSE 62; RESP 16; TEMP 36.2; O2SAT 94
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
[2021-09-18 12:04] LABS: Lactate 1.8 mmol/L (0.6-1.4)
[2021-09-18 12:05] LABS: Absolute Basophil Count 0.05 10^3/uL (0.0-0.2); Absolute Eosinophil Count 0.15 10^3/uL (0.0-0.7); Absolute Lymphocyte Count 2.65 10^3/uL (1.2-3.4); Absolute Monocyte Count 0.53 10^3/uL (0.1-0.8); Absolute Neutrophil Count 6.69 10^3/uL (1.2-6.7); Basophils % 0.5; Eosinophils % 1.5; HCT 47.8 % (40.0-50.0); Lymphocytes % 26.1; MCH 30.5 pg (27.0-33.0); MCHC 33.5 % (32.0-36.0); MPV 11.6 fL (8.0-11.0); Monocytes % 5.2; Neutrophils % 65.7; Nucleated RBC 0 %; Platelet Count 205 10^3/uL (130-400); RBC 5.25 10^6/uL (4.36-5.78); RDW 11.9 % (11.8-14.1); WBC 10.17 10^3/uL (4.4-10.8)
[2021-09-18 12:22] LABS: VALPROIC ACID 94.8 ug/mL
[2021-09-18 12:30] LABS: ALT 19 U/L (16-63); AST 14 U/L (15-37); Albumin 3.2 g/dL (3.4-5.0); Alkaline Phosphatase 68 U/L (46-116); Anion Gap 8.3 mmol/L (3-11); BUN 21 mg/dL (7-18); Bilirubin, Total 0.4 mg/dL (0.2-1.0); CO2 30.7 mmol/L (21.0-32.0); CREATININE 0.9 mg/dL (0.70-1.30); Calcium 9.5 mg/dL (8.5-10.1); Chloride 101 mmol/L (98-107); Glucose 150 mg/dL (74-106); Potassium 3.9 mmol/L (3.5-5.1); Sodium 140 mmol/L (136-145); Total Protein 7.4 g/dL (6.4-8.2)
[2021-09-18 13:49] LABS: Bilirubin Negative (Negative); Blood Negative (Negative); Clarity Clear (Clear); Glucose Negative (Negative); Ketones Negative (Negative); Leukocyte Esterase Negative (Negative); Nitrite Negative (Negative); Specific Gravity <= 1.005 (1.005-1.025); Urobilinogen 0.2 EU/dL (Up TO 0.2); pH 6.5 (5-8)
[2021-09-18 15:17] LABS: Source Nasal/Nares
[2021-09-18] MEDS: Glycerin Adult Suppository JAR 1 SUPP PR (15:28)
[2021-09-18] MEDS: Polyethylene Glycol 3350 17 GM PACKET PO (15:29)
[2021-09-18] MEDS: Bisacodyl 5 MG TABEC 10 MG PO (15:30)
[2021-09-18 15:57] LABS: COVID-19 PCR Negative (Negative)
[2021-09-18 15:58] VITALS: BP 107/69; PULSE 87; O2SAT 94
[2021-09-18 16:11] LABS: *AMPHETAMINES SCREEN URINE Negative (Negative); *BARBITURATES SCREEN URINE Negative (Negative); *BENZODIAZEPINES SCREEN URINE Negative (Negative); Cannabinoids THC Negative (Negative); Cocaine Screen,Urine Negative (Negative); METHADONE URINE SCREEN Negative (Negative); OPIATES URINE SCREEN Negative (Negative)
[2021-09-18 16:16] LABS: Tricyclic Antidepressants Negative (Negative)
--- NOTE | 2021-09-18 17:46 | PDOC.CMSAFED ---
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 He was discharged from [facility] on Thursday. Per CERAMIC DESIGNER he should be admitted to a psychiatric facility although, per ED provider, No new or worsening dangerous behavior. Patient is voluntary for inpatient placement. CM will respond to ED to assess patient after patient has been medically cleared and assessed by screener. If screener deems patient meets criteria for psychiatric stabilization CM will facilitate interdepartmental huddle with [facility] screener for safety planning considerations and meet with patient to review [facility] policy and safety plan, establish individual wishes for treatment and maintain patient rights. In the interim; please note safety plan below to guide patient care while awaiting further assessment in the ED. SAFETY PLAN: 1. Will remain on suicide precautions and in paper clothes. 2. Will remain in room under direct supervision of one-on-one staff at all times provided by [employer], ELECTRONIC CALIBRATION TECHNICIAN cake press operator. 3. May have paper cups, plates, finger foods as well as a cardboard spoon with which to eat meals. 4. Follow [facility] Management of the Admitted Behavioral Health Patient policy. 5. Personal care: Comfort bath system only at this time. 6. Bathroom privileges: with escort in ED. Available in room without limitation on Med/Surg. 6. No personal belongings at this time; per RN discretion. 7. No visitors at this time. 8. Phone contact limited to legal contact at this time. 9. Activities: Music tablet per RN discretion. Med/Surg: Television and remote available at RN discretion. 10. Due to VOLUNTARY status, if patient wishes to leave [facility], staff will contact [facility] Crisis Screener ([phone]) and On-Call Parachute Panel Joiner ([phone]) as soon as possible. In the event of elopement, notify [facility] Police ([phone]).
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
[2021-09-20 12:12] LABS: Clozapine 244 ng/mL (350-600); Clozapine+Norclozapine Total 350 ng/mL; Norclozapine 106 ng/mL
== END 2021-09-18 19:51 | disposition home or self-care (01) ==
PROVIDERS: Student in an Organized Health Care Education/Training Program; Emergency Provider Emergency Medicine; PCP Family Medicine
DX: F20.9 Schizophrenia, unspecified (principal); I10 Essential (primary) hypertension; Z79.899 Other long term (current) drug therapy; Z20.822 Contact with and (suspected) exposure to COVID-19
CPT/HCPCS: 80053; 80307; 87635; 99283; 99284; 80159; 80164; 81003; 83605; 84443; 85025

== ENCOUNTER 2021-09-23 02:50 | Outpatient (CLI) | payer MEDICARE, MEDICAID, SELFPAY | END 2021-09-23 02:51 | disposition home or self-care (01) | LOC: LBO 02:50 | PROVIDERS: PCP Family Medicine; Visit Provider Psychiatry & Neurology Psychiatry ==

== ENCOUNTER → 2021-09-26 01:10 | Outpatient (CLI) | payer MEDICARE, MEDICAID, SELFPAY | PROVIDERS: PCP Family Medicine; Visit Provider Family Medicine ==

== ENCOUNTER 2021-09-30 04:39 | Outpatient (CLI) | payer MEDICARE, MEDICAID, SELFPAY | END 2021-09-30 04:40 | disposition home or self-care (01) | LOC: LBO 04:39 | PROVIDERS: PCP Family Medicine; Visit Provider Psychiatry & Neurology Psychiatry ==

== ENCOUNTER 2021-10-07 02:15 | Outpatient (CLI) | payer MEDICARE, MEDICAID, SELFPAY | END 2021-10-07 02:16 | disposition home or self-care (01) | LOC: LBO 02:15 | PROVIDERS: PCP Family Medicine; Visit Provider Psychiatry & Neurology Psychiatry ==

== ENCOUNTER 2021-10-07 02:19 | Outpatient (CLI) | payer MEDICARE, MEDICAID, SELFPAY | END 2021-10-07 02:20 | disposition home or self-care (01) | LOC: LBO 02:19 | PROVIDERS: PCP Family Medicine; Visit Provider Psychiatry & Neurology Psychiatry ==

== ENCOUNTER 2021-10-09 01:49 | Outpatient (CLI) | payer MEDICARE, MEDICAID, SELFPAY | END 2021-10-09 01:50 | disposition home or self-care (01) | LOC: LBO 01:49 | PROVIDERS: PCP Family Medicine; Visit Provider Psychiatry & Neurology Psychiatry ==

== ENCOUNTER 2021-10-09 12:58 | Outpatient (REF) | payer MEDICARE, MEDICAID, SELFPAY ==
[2021-10-09 14:40] LABS: COMMENT (LAB VIEW ONLY) 95.45 mg/dL; Microalb ug/mg Crea 8.4 ug/mg Cr
[2021-10-09 15:02] LABS: HCT 41.4 % (40.0-50.0); HGB 13.8 g/dL (13.5-17.5); MCH 30.5 pg (27.0-33.0); MCHC 33.3 % (32.0-36.0); MCV 91 fL (80-95); MPV 11.7 fL (8.0-11.0); Platelet Count 225 10^3/uL (130-400); RBC 4.53 10^6/uL (4.36-5.78); RDW 13.2 % (11.8-14.1); RDW-SD 43.7 fL; WBC 9.99 10^3/uL (4.4-10.8)
== END 2021-10-09 12:59 | disposition home or self-care (01) ==
LOC: NCHCN 12:58
PROVIDERS: PCP Family Medicine; Visit Provider Family Medicine
DX: R41.82 Altered mental status, unspecified (principal); E11.9 Type 2 diabetes mellitus without complications
CPT/HCPCS: 85027; 82043; 82570

== ENCOUNTER 2021-10-11 12:29 | Outpatient (CLI) | payer MEDICARE, MEDICAID, SELFPAY ==
[2021-10-11 15:15] LABS: Abs Immature Grans 0.08 10^3/uL (0.0-0.06); Absolute Basophil Count 0.04 10^3/uL (0.0-0.2); Absolute Eosinophil Count 0.13 10^3/uL (0.0-0.7); Absolute Monocyte Count 0.67 10^3/uL (0.1-0.8); Absolute Neutrophil Count 4.93 10^3/uL (1.2-6.7); Basophils % 0.4; Eosinophils % 1.4; HCT 43.6 % (40.0-50.0); HGB 14.4 g/dL (13.5-17.5); Immature Grans % 0.9; Lymphocytes % 35.4; MCH 30.3 pg (27.0-33.0); MCV 92 fL (80-95); MPV 10.8 fL (8.0-11.0); Monocytes % 7.4; Neutrophils % 54.5; Platelet Count 230 10^3/uL (130-400); RBC 4.75 10^6/uL (4.36-5.78); RDW 13.2 % (11.8-14.1); RDW-SD 44.5 fL; WBC 9.05 10^3/uL (4.4-10.8)
[2021-10-15] LABS: Clozapine 434 ng/mL (350-600); Clozapine+Norclozapine Total 577 ng/mL; Norclozapine 143 ng/mL
== END 2021-10-11 12:30 | disposition home or self-care (01) ==
LOC: LBO 12:31
PROVIDERS: PCP Family Medicine; Visit Provider Psychiatry & Neurology Psychiatry
DX: F25.0 Schizoaffective disorder, bipolar type (principal); Z79.899 Other long term (current) drug therapy; Z51.81 Encounter for therapeutic drug level monitoring
CPT/HCPCS: 36415; 80159; 85025

== ENCOUNTER 2021-10-14 01:34 | Outpatient (CLI) | payer MEDICARE, MEDICAID, SELFPAY | END 2021-10-14 01:35 | disposition home or self-care (01) | LOC: LBO 01:34 | PROVIDERS: PCP Family Medicine; Visit Provider Psychiatry & Neurology Psychiatry ==

== ENCOUNTER 2021-10-18 02:43 | Outpatient (CLI) | payer MEDICARE, MEDICAID, SELFPAY ==
[2021-10-18 11:49] LABS: Abs Immature Grans 0.18 10^3/uL (0.0-0.06); Absolute Basophil Count 0.07 10^3/uL (0.0-0.2); Absolute Eosinophil Count 0.18 10^3/uL (0.0-0.7); Absolute Lymphocyte Count 3.29 10^3/uL (1.2-3.4); Absolute Monocyte Count 0.73 10^3/uL (0.1-0.8); Absolute Neutrophil Count 5.55 10^3/uL (1.2-6.7); Basophils % 0.7; Eosinophils % 1.8; HCT 47.1 % (40.0-50.0); HGB 15.4 g/dL (13.5-17.5); Immature Grans % 1.8; Lymphocytes % 32.9; MCH 30.3 pg (27.0-33.0); MCHC 32.7 % (32.0-36.0); MCV 93 fL (80-95); MPV 10.4 fL (8.0-11.0); Monocytes % 7.3; Neutrophils % 55.5; Platelet Count 276 10^3/uL (130-400); RBC 5.08 10^6/uL (4.36-5.78); RDW 14.2 % (11.8-14.1); RDW-SD 48.1 fL
== END 2021-10-18 02:44 | disposition home or self-care (01) ==
LOC: LBO 02:46
PROVIDERS: PCP Family Medicine; Visit Provider Psychiatry & Neurology Psychiatry
DX: Z79.899 Other long term (current) drug therapy (principal); F25.0 Schizoaffective disorder, bipolar type
CPT/HCPCS: 36415; 85025

== ENCOUNTER 2021-10-25 02:07 | Outpatient (CLI) | payer MEDICARE, MEDICAID, SELFPAY ==
[2021-10-25 13:11] LABS: Abs Immature Grans 0.12 10^3/uL (0.0-0.06); Absolute Basophil Count 0.04 10^3/uL (0.0-0.2); Absolute Lymphocyte Count 2.48 10^3/uL (1.2-3.4); Absolute Monocyte Count 0.75 10^3/uL (0.1-0.8); Absolute Neutrophil Count 5.08 10^3/uL (1.2-6.7); Basophils % 0.5; Eosinophils % 1.2; HGB 14.5 g/dL (13.5-17.5); Immature Grans % 1.4; Lymphocytes % 28.9; MCH 31.3 pg (27.0-33.0); MCV 95 fL (80-95); MPV 10.8 fL (8.0-11.0); Monocytes % 8.8; Neutrophils % 59.2; Platelet Count 212 10^3/uL (130-400); RBC 4.63 10^6/uL (4.36-5.78); RDW 14.8 % (11.8-14.1); RDW-SD 51.8 fL; WBC 8.57 10^3/uL (4.4-10.8)
== END 2021-10-25 02:08 | disposition home or self-care (01) ==
LOC: LBO 02:07
PROVIDERS: PCP Family Medicine; Visit Provider Psychiatry & Neurology Psychiatry
DX: F25.0 Schizoaffective disorder, bipolar type (principal); Z79.899 Other long term (current) drug therapy
CPT/HCPCS: 36415; 85025

== ENCOUNTER 2021-11-01 01:41 | Outpatient (CLI) | payer MEDICARE, MEDICAID, SELFPAY ==
[2021-11-01 11:03] LABS: Abs Immature Grans 0.11 10^3/uL (0.0-0.06); Absolute Basophil Count 0.05 10^3/uL (0.0-0.2); Absolute Eosinophil Count 0.14 10^3/uL (0.0-0.7); Absolute Lymphocyte Count 2.68 10^3/uL (1.2-3.4); Absolute Monocyte Count 0.68 10^3/uL (0.1-0.8); Absolute Neutrophil Count 5.44 10^3/uL (1.2-6.7); Basophils % 0.5; Eosinophils % 1.5; HCT 48.8 % (40.0-50.0); HGB 16.7 g/dL (13.5-17.5); Immature Grans % 1.2; Lymphocytes % 29.5; MCH 31.7 pg (27.0-33.0); MCHC 34.2 % (32.0-36.0); MCV 93 fL (80-95); MPV 11.4 fL (8.0-11.0); Monocytes % 7.5; Neutrophils % 59.8; Platelet Count 229 10^3/uL (130-400); RBC 5.26 10^6/uL (4.36-5.78); RDW 14.9 % (11.8-14.1)
== END 2021-11-01 01:42 | disposition home or self-care (01) ==
LOC: LBO 01:42
PROVIDERS: PCP Family Medicine; Visit Provider Psychiatry & Neurology Psychiatry
DX: F25.0 Schizoaffective disorder, bipolar type (principal); Z79.899 Other long term (current) drug therapy
CPT/HCPCS: 36415; 85025

== ENCOUNTER 2021-11-08 01:27 | Outpatient (CLI) | payer MEDICARE, MEDICAID, SELFPAY | END 2021-11-08 01:28 | disposition home or self-care (01) | LOC: LBO 01:27 | PROVIDERS: PCP Family Medicine; Visit Provider Psychiatry & Neurology Psychiatry ==

== ENCOUNTER 2021-11-08 16:34 | Outpatient (REF) | payer MEDICARE, MEDICAID, SELFPAY ==
[2021-11-08 15:30] LABS: Anion Gap 10.7 mmol/L (3-11); BUN 20 mg/dL (7-18); CO2 27.3 mmol/L (21.0-32.0); CREATININE 0.9 mg/dL (0.70-1.30); Calcium 9.4 mg/dL (8.5-10.1); Chloride 103 mmol/L (98-107); Glucose 111 mg/dL (74-106); Magnesium 1.8 mg/dL (1.8-2.4); Potassium 4.5 mmol/L (3.5-5.1); Sodium 141 mmol/L (136-145)
== END 2021-11-08 16:35 | disposition home or self-care (01) ==
LOC: NCHCN 16:34
PROVIDERS: PCP Family Medicine; Visit Provider Family Medicine
DX: I10 Essential (primary) hypertension (principal); R41.82 Altered mental status, unspecified
CPT/HCPCS: 80048; 83735

== ENCOUNTER 2021-11-13 11:56 | Outpatient (CLI) | payer MEDICARE, MEDICAID, SELFPAY ==
[2021-11-13 10:44] LABS: Abs Immature Grans 0.15 10^3/uL (0.0-0.06); Absolute Eosinophil Count 0.19 10^3/uL (0.0-0.7); Absolute Lymphocyte Count 2.75 10^3/uL (1.2-3.4); Absolute Neutrophil Count 8.54 10^3/uL (1.2-6.7); Basophils % 0.6; Eosinophils % 1.5; HCT 45.7 % (40.0-50.0); HGB 15.2 g/dL (13.5-17.5); Immature Grans % 1.2; Lymphocytes % 21.9; MCH 31.3 pg (27.0-33.0); MCHC 33.3 % (32.0-36.0); MCV 94 fL (80-95); MPV 10.7 fL (8.0-11.0); Monocytes % 6.8; Platelet Count 262 10^3/uL (130-400); RBC 4.85 10^6/uL (4.36-5.78); RDW 14.4 % (11.8-14.1); RDW-SD 49.7 fL; WBC 12.56 10^3/uL (4.4-10.8)
[2021-11-13 10:46] LABS: Absolute Basophil Count 0.08 10^3/uL (0.0-0.2); Absolute Monocyte Count 0.85 10^3/uL (0.1-0.8)
== END 2021-11-13 11:57 | disposition home or self-care (01) ==
LOC: LBO 11:58
PROVIDERS: PCP Family Medicine; Visit Provider Psychiatry & Neurology Psychiatry
DX: F25.0 Schizoaffective disorder, bipolar type (principal); Z79.899 Other long term (current) drug therapy
CPT/HCPCS: 36415; 85025

== ENCOUNTER 2021-11-15 01:45 | Outpatient (CLI) | payer MEDICARE, MEDICAID, SELFPAY | END 2021-11-15 01:46 | disposition home or self-care (01) | LOC: LBO 01:46 | PROVIDERS: PCP Family Medicine; Visit Provider Psychiatry & Neurology Psychiatry ==

== ENCOUNTER 2021-11-22 01:23 | Outpatient (CLI) | payer MEDICARE, MEDICAID, SELFPAY ==
[2021-11-22 10:47] LABS: Abs Immature Grans 0.13 10^3/uL (0.0-0.06); Absolute Basophil Count 0.05 10^3/uL (0.0-0.2); Absolute Eosinophil Count 0.18 10^3/uL (0.0-0.7); Absolute Lymphocyte Count 3.51 10^3/uL (1.2-3.4); Absolute Monocyte Count 0.74 10^3/uL (0.1-0.8); Absolute Neutrophil Count 5.92 10^3/uL (1.2-6.7); Basophils % 0.5; Eosinophils % 1.7; HCT 45.5 % (40.0-50.0); HGB 15.9 g/dL (13.5-17.5); Immature Grans % 1.2; Lymphocytes % 33.3; MCH 32.3 pg (27.0-33.0); MCHC 34.9 % (32.0-36.0); MCV 93 fL (80-95); Neutrophils % 56.3; Platelet Count 225 10^3/uL (130-400); RBC 4.92 10^6/uL (4.36-5.78); RDW 14.7 % (11.8-14.1); RDW-SD 50.3 fL; WBC 10.53 10^3/uL (4.4-10.8)
== END 2021-11-22 01:24 | disposition home or self-care (01) ==
LOC: LBO 01:23
PROVIDERS: PCP Family Medicine; Visit Provider Psychiatry & Neurology Psychiatry
DX: F25.0 Schizoaffective disorder, bipolar type (principal); Z79.899 Other long term (current) drug therapy
CPT/HCPCS: 36415; 85025

== ENCOUNTER 2021-11-29 02:18 | Outpatient (CLI) | payer MEDICARE, MEDICAID, SELFPAY ==
[2021-11-29 10:45] LABS: Abs Immature Grans 0.07 10^3/uL (0.0-0.06); Absolute Basophil Count 0.05 10^3/uL (0.0-0.2); Absolute Eosinophil Count 0.21 10^3/uL (0.0-0.7); Absolute Lymphocyte Count 2.81 10^3/uL (1.2-3.4); Absolute Monocyte Count 0.75 10^3/uL (0.1-0.8); Basophils % 0.6; Eosinophils % 2.3; HCT 47.3 % (40.0-50.0); HGB 15.7 g/dL (13.5-17.5); Immature Grans % 0.8; Lymphocytes % 31.3; MCH 31.8 pg (27.0-33.0); MCHC 33.2 % (32.0-36.0); MCV 96 fL (80-95); MPV 10.8 fL (8.0-11.0); Monocytes % 8.3; Neutrophils % 56.7; Platelet Count 228 10^3/uL (130-400); RBC 4.94 10^6/uL (4.36-5.78); RDW 14.1 % (11.8-14.1); WBC 8.99 10^3/uL (4.4-10.8)
== END 2021-11-29 02:19 | disposition home or self-care (01) ==
LOC: LBO 02:18
PROVIDERS: PCP Family Medicine; Visit Provider Psychiatry & Neurology Psychiatry
DX: F25.0 Schizoaffective disorder, bipolar type (principal); Z79.899 Other long term (current) drug therapy
CPT/HCPCS: 36415; 99281; 85025

== ENCOUNTER 2021-11-29 16:35 | Emergency (ER) | payer MEDICARE, MEDICAID, SELFPAY ==
[2021-11-29 16:35] VITALS: BP 119/71; PULSE 93; RESP 17; TEMP 36.6; O2SAT 95
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
== END 2021-11-29 17:15 | disposition home or self-care (01) ==
PROVIDERS: Emergency Provider Physician Assistant; PCP Family Medicine
DX: R20.2 Paresthesia of skin (principal); I10 Essential (primary) hypertension; E11.9 Type 2 diabetes mellitus without complications; Z79.01 Long term (current) use of anticoagulants; Z79.84 Long term (current) use of oral hypoglycemic drugs
CPT/HCPCS: 99281

== ENCOUNTER 2021-12-06 03:14 | Outpatient (CLI) | payer MEDICARE, MEDICAID, SELFPAY | END 2021-12-06 03:15 | disposition home or self-care (01) | LOC: LBO 03:14 | PROVIDERS: PCP Family Medicine; Visit Provider Psychiatry & Neurology Psychiatry ==

== ENCOUNTER 2021-12-11 16:38 | Outpatient (CLI) | payer MEDICARE, MEDICAID, SELFPAY | END 2021-12-11 16:39 | disposition home or self-care (01) | LOC: LBO 16:41 | PROVIDERS: PCP Family Medicine; Visit Provider Psychiatry & Neurology Psychiatry ==

== ENCOUNTER 2021-12-12 15:34 | Outpatient (CLI) | payer MEDICARE, MEDICAID, SELFPAY ==
[2021-12-12 10:37] LABS: Abs Immature Grans 0.08 10^3/uL (0.0-0.06); Absolute Basophil Count 0.05 10^3/uL (0.0-0.2); Absolute Eosinophil Count 0.23 10^3/uL (0.0-0.7); Absolute Lymphocyte Count 2.95 10^3/uL (1.2-3.4); Absolute Monocyte Count 0.63 10^3/uL (0.1-0.8); Absolute Neutrophil Count 5.91 10^3/uL (1.2-6.7); Basophils % 0.5; Eosinophils % 2.3; HCT 48.1 % (40.0-50.0); HGB 16.4 g/dL (13.5-17.5); Immature Grans % 0.8; Lymphocytes % 29.9; MCH 32.2 pg (27.0-33.0); MCHC 34.1 % (32.0-36.0); MCV 95 fL (80-95); MPV 10.7 fL (8.0-11.0); Monocytes % 6.4; Neutrophils % 60.1; Platelet Count 237 10^3/uL (130-400); RBC 5.09 10^6/uL (4.36-5.78); RDW-SD 45.5 fL; WBC 9.85 10^3/uL (4.4-10.8)
== END 2021-12-12 15:35 | disposition home or self-care (01) ==
PROVIDERS: PCP Family Medicine; Visit Provider Psychiatry & Neurology Psychiatry
DX: F25.0 Schizoaffective disorder, bipolar type (principal); Z79.899 Other long term (current) drug therapy
CPT/HCPCS: 36415; 85025

== ENCOUNTER 2021-12-20 01:45 | Outpatient (CLI) | payer MEDICARE, MEDICAID, SELFPAY ==
[2021-12-20 10:37] LABS: Abs Immature Grans 0.12 10^3/uL (0.0-0.06); Absolute Basophil Count 0.06 10^3/uL (0.0-0.2); Absolute Eosinophil Count 0.24 10^3/uL (0.0-0.7); Absolute Lymphocyte Count 3.22 10^3/uL (1.2-3.4); Absolute Monocyte Count 0.84 10^3/uL (0.1-0.8); Absolute Neutrophil Count 5.94 10^3/uL (1.2-6.7); Basophils % 0.6; Eosinophils % 2.3; HCT 47.9 % (40.0-50.0); HGB 16.1 g/dL (13.5-17.5); Immature Grans % 1.2; Lymphocytes % 30.9; MCH 31.8 pg (27.0-33.0); MCHC 33.6 % (32.0-36.0); MCV 95 fL (80-95); MPV 10.4 fL (8.0-11.0); Monocytes % 8.1; Neutrophils % 56.9; Platelet Count 280 10^3/uL (130-400); RBC 5.06 10^6/uL (4.36-5.78); RDW-SD 42.4 fL; WBC 10.42 10^3/uL (4.4-10.8)
== END 2021-12-20 01:46 | disposition home or self-care (01) ==
LOC: LBO 01:45
PROVIDERS: PCP Family Medicine; Visit Provider Psychiatry & Neurology Psychiatry
DX: F25.0 Schizoaffective disorder, bipolar type (principal); Z79.899 Other long term (current) drug therapy
CPT/HCPCS: 36415; 85025

== ENCOUNTER 2021-12-27 02:23 | Outpatient (CLI) | payer MEDICARE, MEDICAID, SELFPAY ==
[2021-12-27 10:36] LABS: Abs Immature Grans 0.09 10^3/uL (0.0-0.06); Absolute Basophil Count 0.05 10^3/uL (0.0-0.2); Absolute Eosinophil Count 0.17 10^3/uL (0.0-0.7); Absolute Lymphocyte Count 3.03 10^3/uL (1.2-3.4); Absolute Monocyte Count 0.64 10^3/uL (0.1-0.8); Absolute Neutrophil Count 6.61 10^3/uL (1.2-6.7); Basophils % 0.5; Eosinophils % 1.6; HGB 16.4 g/dL (13.5-17.5); Immature Grans % 0.8; Lymphocytes % 28.6; MCHC 34.2 % (32.0-36.0); MCV 94 fL (80-95); MPV 10.6 fL (8.0-11.0); Neutrophils % 62.5; Platelet Count 221 10^3/uL (130-400); RBC 5.12 10^6/uL (4.36-5.78); RDW 11.9 % (11.8-14.1); RDW-SD 41.1 fL; WBC 10.59 10^3/uL (4.4-10.8)
== END 2021-12-27 02:24 | disposition home or self-care (01) ==
LOC: LBO 02:23
PROVIDERS: PCP Family Medicine; Visit Provider Psychiatry & Neurology Psychiatry
DX: Z79.899 Other long term (current) drug therapy (principal); F25.0 Schizoaffective disorder, bipolar type
CPT/HCPCS: 36415; 85025

== ENCOUNTER 2022-01-03 01:57 | Outpatient (CLI) | payer MEDICARE, MEDICAID, SELFPAY ==
[2022-01-03 10:56] LABS: Abs Immature Grans 0.06 10^3/uL (0.0-0.06); Absolute Basophil Count 0.07 10^3/uL (0.0-0.2); Absolute Eosinophil Count 0.25 10^3/uL (0.0-0.7); Absolute Monocyte Count 0.55 10^3/uL (0.1-0.8); Absolute Neutrophil Count 4.38 10^3/uL (1.2-6.7); Basophils % 0.8; Eosinophils % 2.9; HCT 50.3 % (40.0-50.0); HGB 17.7 g/dL (13.5-17.5); Immature Grans % 0.7; MCH 32.1 pg (27.0-33.0); MCHC 35.2 % (32.0-36.0); MCV 91 fL (80-95); MPV 11.2 fL (8.0-11.0); Monocytes % 6.3; Neutrophils % 50.3; Platelet Count 221 10^3/uL (130-400); RBC 5.52 10^6/uL (4.36-5.78); RDW 11.8 % (11.8-14.1); RDW-SD 39.4 fL; WBC 8.71 10^3/uL (4.4-10.8)
== END 2022-01-03 01:58 | disposition home or self-care (01) ==
LOC: LBO 01:57
PROVIDERS: PCP Family Medicine; Visit Provider Psychiatry & Neurology Psychiatry
DX: F25.0 Schizoaffective disorder, bipolar type (principal); Z79.899 Other long term (current) drug therapy
CPT/HCPCS: 36415; 85025

== ENCOUNTER 2022-01-10 01:46 | Outpatient (CLI) | payer MEDICARE, MEDICAID, SELFPAY ==
[2022-01-10 10:39] LABS: Abs Immature Grans 0.11 10^3/uL (0.0-0.06); Absolute Basophil Count 0.07 10^3/uL (0.0-0.2); Absolute Eosinophil Count 0.28 10^3/uL (0.0-0.7); Absolute Lymphocyte Count 3.33 10^3/uL (1.2-3.4); Absolute Monocyte Count 0.73 10^3/uL (0.1-0.8); Absolute Neutrophil Count 4.78 10^3/uL (1.2-6.7); Basophils % 0.8; HCT 48.6 % (40.0-50.0); HGB 16.7 g/dL (13.5-17.5); Immature Grans % 1.2; Lymphocytes % 35.8; MCHC 34.4 % (32.0-36.0); MCV 93 fL (80-95); MPV 10.9 fL (8.0-11.0); Monocytes % 7.8; Neutrophils % 51.4; Platelet Count 215 10^3/uL (130-400); RBC 5.22 10^6/uL (4.36-5.78); RDW-SD 41.4 fL
== END 2022-01-10 01:47 | disposition home or self-care (01) ==
LOC: LBO 01:46
PROVIDERS: PCP Family Medicine; Visit Provider Psychiatry & Neurology Psychiatry
DX: F25.0 Schizoaffective disorder, bipolar type (principal); Z79.899 Other long term (current) drug therapy
CPT/HCPCS: 36415; 85025

== ENCOUNTER 2022-01-17 01:29 | Outpatient (CLI) | payer MEDICARE, MEDICAID, SELFPAY ==
[2022-01-17 10:34] LABS: Absolute Basophil Count 0.05 10^3/uL (0.0-0.2); Absolute Eosinophil Count 0.32 10^3/uL (0.0-0.7); Absolute Lymphocyte Count 3.47 10^3/uL (1.2-3.4); Absolute Neutrophil Count 4.38 10^3/uL (1.2-6.7); Basophils % 0.6; Eosinophils % 3.6; HCT 48.6 % (40.0-50.0); HGB 17.2 g/dL (13.5-17.5); Immature Grans % 1.1; Lymphocytes % 38.9; MCH 32.2 pg (27.0-33.0); MCHC 35.4 % (32.0-36.0); MCV 91 fL (80-95); MPV 10.6 fL (8.0-11.0); Monocytes % 6.7; Neutrophils % 49.1; Platelet Count 217 10^3/uL (130-400); RBC 5.34 10^6/uL (4.36-5.78); RDW 11.9 % (11.8-14.1); RDW-SD 39.6 fL; WBC 8.92 10^3/uL (4.4-10.8)
== END 2022-01-17 01:30 | disposition home or self-care (01) ==
LOC: LBO 01:29
PROVIDERS: PCP Family Medicine; Visit Provider Psychiatry & Neurology Psychiatry
DX: Z79.899 Other long term (current) drug therapy (principal); F25.0 Schizoaffective disorder, bipolar type
CPT/HCPCS: 36415; 85025

== ENCOUNTER 2022-01-24 01:09 | Outpatient (CLI) | payer MEDICARE, MEDICAID, SELFPAY ==
[2022-01-24 10:45] LABS: Abs Immature Grans 0.07 10^3/uL (0.0-0.06); Absolute Basophil Count 0.05 10^3/uL (0.0-0.2); Absolute Lymphocyte Count 2.81 10^3/uL (1.2-3.4); Absolute Monocyte Count 0.72 10^3/uL (0.1-0.8); Absolute Neutrophil Count 6.17 10^3/uL (1.2-6.7); Basophils % 0.5; HCT 50.1 % (40.0-50.0); HGB 17.7 g/dL (13.5-17.5); Immature Grans % 0.7; MCH 32.1 pg (27.0-33.0); MCHC 35.3 % (32.0-36.0); MCV 91 fL (80-95); MPV 10.9 fL (8.0-11.0); Monocytes % 7.2; Neutrophils % 61.6; Platelet Count 229 10^3/uL (130-400); RBC 5.51 10^6/uL (4.36-5.78); RDW 11.8 % (11.8-14.1); RDW-SD 39.7 fL; WBC 10.02 10^3/uL (4.4-10.8)
== END 2022-01-24 01:10 | disposition home or self-care (01) ==
LOC: LBO 01:09
PROVIDERS: PCP Family Medicine; Visit Provider Psychiatry & Neurology Psychiatry
DX: F25.0 Schizoaffective disorder, bipolar type (principal); Z79.899 Other long term (current) drug therapy
CPT/HCPCS: 36415; 85025

== ENCOUNTER 2022-01-31 01:21 | Outpatient (CLI) | payer MEDICARE, MEDICAID, SELFPAY ==
[2022-01-31 10:57] LABS: Abs Immature Grans 0.08 10^3/uL (0.0-0.06); Absolute Basophil Count 0.05 10^3/uL (0.0-0.2); Absolute Eosinophil Count 0.17 10^3/uL (0.0-0.7); Absolute Lymphocyte Count 3.04 10^3/uL (1.2-3.4); Absolute Monocyte Count 0.85 10^3/uL (0.1-0.8); Absolute Neutrophil Count 8.07 10^3/uL (1.2-6.7); Basophils % 0.4; Eosinophils % 1.4; HCT 48.7 % (40.0-50.0); HGB 16.8 g/dL (13.5-17.5); Immature Grans % 0.7; Lymphocytes % 24.8; MCH 31.8 pg (27.0-33.0); MCHC 34.5 % (32.0-36.0); MCV 92 fL (80-95); MPV 10.8 fL (8.0-11.0); Monocytes % 6.9; Neutrophils % 65.8; Platelet Count 215 10^3/uL (130-400); RBC 5.28 10^6/uL (4.36-5.78); RDW-SD 41.1 fL; WBC 12.26 10^3/uL (4.4-10.8)
== END 2022-01-31 01:22 | disposition home or self-care (01) ==
LOC: LBO 01:21
PROVIDERS: PCP Family Medicine; Visit Provider Psychiatry & Neurology Psychiatry
DX: F25.0 Schizoaffective disorder, bipolar type (principal); Z79.899 Other long term (current) drug therapy
CPT/HCPCS: 36415; 85025

== ENCOUNTER 2022-02-07 02:13 | Outpatient (CLI) | payer MEDICARE, MEDICAID, SELFPAY ==
[2022-02-07 11:18] LABS: Abs Immature Grans 0.07 10^3/uL (0.0-0.06); Absolute Basophil Count 0.04 10^3/uL (0.0-0.2); Absolute Eosinophil Count 0.13 10^3/uL (0.0-0.7); Absolute Lymphocyte Count 2.37 10^3/uL (1.2-3.4); Absolute Monocyte Count 0.66 10^3/uL (0.1-0.8); Absolute Neutrophil Count 5.87 10^3/uL (1.2-6.7); Basophils % 0.4; Eosinophils % 1.4; HCT 48.7 % (40.0-50.0); Immature Grans % 0.8; Lymphocytes % 25.9; MCH 32.1 pg (27.0-33.0); MCHC 34.9 % (32.0-36.0); MCV 92 fL (80-95); MPV 10.5 fL (8.0-11.0); Monocytes % 7.2; Neutrophils % 64.3; Platelet Count 224 10^3/uL (130-400); RDW-SD 40.5 fL; WBC 9.14 10^3/uL (4.4-10.8)
== END 2022-02-07 02:14 | disposition home or self-care (01) ==
LOC: LBO 02:13
PROVIDERS: PCP Family Medicine; Visit Provider Psychiatry & Neurology Psychiatry
DX: Z79.899 Other long term (current) drug therapy (principal)
CPT/HCPCS: 36415; 85025

== ENCOUNTER 2022-02-14 01:44 | Outpatient (CLI) | payer MEDICARE, MEDICAID, SELFPAY ==
[2022-02-14 10:38] LABS: Abs Immature Grans 0.13 10^3/uL (0.0-0.06); Absolute Basophil Count 0.05 10^3/uL (0.0-0.2); Absolute Lymphocyte Count 3.01 10^3/uL (1.2-3.4); Absolute Monocyte Count 0.79 10^3/uL (0.1-0.8); Absolute Neutrophil Count 5.69 10^3/uL (1.2-6.7); Basophils % 0.5; HCT 49.2 % (40.0-50.0); HGB 17.1 g/dL (13.5-17.5); Immature Grans % 1.3; Lymphocytes % 30.5; MCH 31.8 pg (27.0-33.0); MCHC 34.8 % (32.0-36.0); MCV 91 fL (80-95); MPV 10.9 fL (8.0-11.0); Neutrophils % 57.7; Platelet Count 213 10^3/uL (130-400); RBC 5.38 10^6/uL (4.36-5.78); RDW 12.3 % (11.8-14.1); RDW-SD 41.2 fL; WBC 9.87 10^3/uL (4.4-10.8)
== END 2022-02-14 01:45 | disposition home or self-care (01) ==
LOC: LBO 01:44
PROVIDERS: PCP Family Medicine; Visit Provider Psychiatry & Neurology Psychiatry
DX: F25.0 Schizoaffective disorder, bipolar type (principal); Z79.899 Other long term (current) drug therapy
CPT/HCPCS: 36415; 85025

== ENCOUNTER 2022-02-21 01:38 | Outpatient (CLI) | payer MEDICARE, MEDICAID, SELFPAY ==
[2022-02-21 10:35] LABS: Abs Immature Grans 0.12 10^3/uL (0.0-0.06); Absolute Basophil Count 0.07 10^3/uL (0.0-0.2); Absolute Eosinophil Count 0.19 10^3/uL (0.0-0.7); Absolute Lymphocyte Count 2.88 10^3/uL (1.2-3.4); Absolute Monocyte Count 0.69 10^3/uL (0.1-0.8); Basophils % 0.6; Eosinophils % 1.7; HCT 50.4 % (40.0-50.0); HGB 17.2 g/dL (13.5-17.5); Immature Grans % 1.1; Lymphocytes % 26.4; MCH 31.6 pg (27.0-33.0); MCHC 34.1 % (32.0-36.0); MCV 93 fL (80-95); MPV 10.9 fL (8.0-11.0); Monocytes % 6.3; Neutrophils % 63.9; Platelet Count 224 10^3/uL (130-400); RBC 5.44 10^6/uL (4.36-5.78); RDW 12.4 % (11.8-14.1); RDW-SD 42.2 fL; WBC 10.91 10^3/uL (4.4-10.8)
[2022-02-21 10:36] LABS: Absolute Neutrophil Count 6.97 10^3/uL (1.2-6.7)
== END 2022-02-21 01:39 | disposition home or self-care (01) ==
LOC: LBO 01:38
PROVIDERS: PCP Family Medicine; Visit Provider Psychiatry & Neurology Psychiatry
DX: Z79.899 Other long term (current) drug therapy (principal); F25.0 Schizoaffective disorder, bipolar type
CPT/HCPCS: 36415; 85025

== ENCOUNTER 2022-02-28 13:13 | Outpatient (CLI) | payer MEDICARE, MEDICAID, SELFPAY ==
[2022-02-28 10:36] LABS: Abs Immature Grans 0.11 10^3/uL (0.0-0.06); Absolute Basophil Count 0.08 10^3/uL (0.0-0.2); Absolute Eosinophil Count 0.39 10^3/uL (0.0-0.7); Absolute Lymphocyte Count 3.51 10^3/uL (1.2-3.4); Absolute Monocyte Count 0.57 10^3/uL (0.1-0.8); Absolute Neutrophil Count 4.51 10^3/uL (1.2-6.7); Basophils % 0.9; Eosinophils % 4.3; HCT 49.1 % (40.0-50.0); HGB 17.1 g/dL (13.5-17.5); Immature Grans % 1.2; Lymphocytes % 38.3; MCH 31.9 pg (27.0-33.0); MCHC 34.8 % (32.0-36.0); MCV 92 fL (80-95); MPV 10.8 fL (8.0-11.0); Monocytes % 6.2; Neutrophils % 49.1; Platelet Count 229 10^3/uL (130-400); RBC 5.36 10^6/uL (4.36-5.78); RDW 12.4 % (11.8-14.1); RDW-SD 41.7 fL; WBC 9.17 10^3/uL (4.4-10.8)
== END 2022-02-28 13:14 | disposition home or self-care (01) ==
LOC: LBO 13:14
PROVIDERS: PCP Family Medicine; Visit Provider Psychiatry & Neurology Psychiatry
DX: F25.0 Schizoaffective disorder, bipolar type (principal); Z79.899 Other long term (current) drug therapy
CPT/HCPCS: 36415; 85025

== ENCOUNTER 2022-03-07 02:14 | Outpatient (CLI) | payer MEDICARE, MEDICAID, SELFPAY ==
[2022-03-07 10:51] LABS: Abs Immature Grans 0.15 10^3/uL (0.0-0.06); Absolute Basophil Count 0.06 10^3/uL (0.0-0.2); Absolute Eosinophil Count 0.07 10^3/uL (0.0-0.7); Absolute Monocyte Count 0.92 10^3/uL (0.1-0.8); Absolute Neutrophil Count 9.14 10^3/uL (1.2-6.7); Basophils % 0.5; Eosinophils % 0.6; HCT 48.5 % (40.0-50.0); HGB 16.7 g/dL (13.5-17.5); Immature Grans % 1.2; Lymphocytes % 16.5; MCH 31.9 pg (27.0-33.0); MCHC 34.4 % (32.0-36.0); MCV 93 fL (80-95); MPV 10.7 fL (8.0-11.0); Monocytes % 7.4; Neutrophils % 73.8; Platelet Count 216 10^3/uL (130-400); RBC 5.23 10^6/uL (4.36-5.78); RDW 12.3 % (11.8-14.1); RDW-SD 42.3 fL; WBC 12.39 10^3/uL (4.4-10.8)
[2022-03-07 10:53] LABS: Absolute Lymphocyte Count 2.04 10^3/uL (1.2-3.4)
== END 2022-03-07 02:15 | disposition home or self-care (01) ==
LOC: LBO 02:14
PROVIDERS: PCP Family Medicine; Visit Provider Psychiatry & Neurology Psychiatry
DX: Z79.899 Other long term (current) drug therapy (principal); F25.0 Schizoaffective disorder, bipolar type
CPT/HCPCS: 36415; 85025

== ENCOUNTER 2022-03-14 01:41 | Outpatient (CLI) | payer MEDICARE, MEDICAID, SELFPAY ==
[2022-03-14 10:38] LABS: Abs Immature Grans 0.09 10^3/uL (0.0-0.06); Absolute Basophil Count 0.06 10^3/uL (0.0-0.2); Absolute Eosinophil Count 0.26 10^3/uL (0.0-0.7); Absolute Lymphocyte Count 3.27 10^3/uL (1.2-3.4); Absolute Monocyte Count 0.86 10^3/uL (0.1-0.8); Absolute Neutrophil Count 6.22 10^3/uL (1.2-6.7); Basophils % 0.6; Eosinophils % 2.4; HGB 16.6 g/dL (13.5-17.5); Immature Grans % 0.8; Lymphocytes % 30.4; MCH 31.7 pg (27.0-33.0); MCHC 34.6 % (32.0-36.0); MCV 92 fL (80-95); MPV 10.4 fL (8.0-11.0); Neutrophils % 57.8; Platelet Count 264 10^3/uL (130-400); RBC 5.24 10^6/uL (4.36-5.78); RDW 12.2 % (11.8-14.1); RDW-SD 41.2 fL; WBC 10.76 10^3/uL (4.4-10.8)
== END 2022-03-14 01:42 | disposition home or self-care (01) ==
LOC: LBO 01:42
PROVIDERS: PCP Family Medicine; Visit Provider Psychiatry & Neurology Psychiatry
DX: Z79.899 Other long term (current) drug therapy (principal)
CPT/HCPCS: 36415; 85025

== ENCOUNTER 2022-03-21 02:04 | Outpatient (CLI) | payer MEDICARE, MEDICAID, SELFPAY ==
[2022-03-21 10:23] LABS: Abs Immature Grans 0.05 10^3/uL (0.0-0.06); Absolute Basophil Count 0.05 10^3/uL (0.0-0.2); Absolute Lymphocyte Count 3.38 10^3/uL (1.2-3.4); Absolute Monocyte Count 0.76 10^3/uL (0.1-0.8); Absolute Neutrophil Count 5.99 10^3/uL (1.2-6.7); Basophils % 0.5; HCT 44.8 % (40.0-50.0); Immature Grans % 0.5; Lymphocytes % 32.7; MCH 32.5 pg (27.0-33.0); MCHC 35.7 % (32.0-36.0); MCV 91 fL (80-95); MPV 11.1 fL (8.0-11.0); Monocytes % 7.4; Neutrophils % 57.9; Platelet Count 250 10^3/uL (130-400); RBC 4.93 10^6/uL (4.36-5.78); RDW 12.5 % (11.8-14.1); RDW-SD 41.6 fL; WBC 10.33 10^3/uL (4.4-10.8)
== END 2022-03-21 02:05 | disposition home or self-care (01) ==
LOC: LBO 02:04
PROVIDERS: PCP Family Medicine; Visit Provider Psychiatry & Neurology Psychiatry
DX: Z79.899 Other long term (current) drug therapy (principal); F25.0 Schizoaffective disorder, bipolar type
CPT/HCPCS: 36415; 85025

== ENCOUNTER 2022-03-28 01:36 | Outpatient (CLI) | payer MEDICARE, MEDICAID, SELFPAY ==
[2022-03-28 10:24] LABS: Abs Immature Grans 0.03 10^3/uL (0.0-0.06); Absolute Basophil Count 0.05 10^3/uL (0.0-0.2); Absolute Eosinophil Count 0.05 10^3/uL (0.0-0.7); Absolute Lymphocyte Count 2.97 10^3/uL (1.2-3.4); Basophils % 0.4; Eosinophils % 0.4; HCT 49.9 % (40.0-50.0); HGB 17.1 g/dL (13.5-17.5); Immature Grans % 0.2; Lymphocytes % 22.6; MCH 31.6 pg (27.0-33.0); MCHC 34.3 % (32.0-36.0); MCV 92 fL (80-95); MPV 10.8 fL (8.0-11.0); Monocytes % 7.5; Neutrophils % 68.9; Platelet Count 263 10^3/uL (130-400); RBC 5.41 10^6/uL (4.36-5.78); RDW 12.9 % (11.8-14.1); RDW-SD 43.7 fL; WBC 13.13 10^3/uL (4.4-10.8)
[2022-03-28 10:26] LABS: Absolute Monocyte Count 0.98 10^3/uL (0.1-0.8); Absolute Neutrophil Count 9.05 10^3/uL (1.2-6.7)
== END 2022-03-28 01:37 | disposition home or self-care (01) ==
LOC: LBO 01:37
PROVIDERS: PCP Family Medicine; Visit Provider Psychiatry & Neurology Psychiatry
DX: Z79.899 Other long term (current) drug therapy (principal)
CPT/HCPCS: 36415; 85025

== ENCOUNTER 2022-03-29 11:55 | Observation (INO) | payer MEDICARE, MEDICAID, SELFPAY ==
[2022-03-29] VITALS (38 sets, daily range): BP systolic 107–128; BP diastolic 61–85; PULSE 78–121; RESP 15–31; TEMP 36.8–37.7; O2SAT 84–95
--- NOTE | 2022-03-29 | DI.RAD_ITS ---
Exam(s) XR CHEST 2V PA LATERAL EXAM: XR CHEST 2V PA LATERAL CLINICAL HISTORY: SOB, altered mental status. TECHNIQUE: 2D digital imaging was performed. COMPARISON: CR,XR XR CHEST 2V PA LATERAL from 08/10/2021 FINDINGS: 2 views: Cardiomegaly again noted. The mediastinum is not widened. Right lung remains clear but there is infiltrate in the left lower lobe and a small left pleural effu sions evident. IMPRESSION: Left lower lobe infiltrate and small left pleural effusion. DATA REPOSITORY: RADIATION DOSE DELIVERED:
--- NOTE | 2022-03-29 11:45 | RT.EKG_ITS ---
APPROVED REPORT Exam: Resting ECG Reason for Exam: hx of afib Patient Location: E HR:108 bpm ECG Measurements Heart Rate 108 AXIS CO [id number] P [id number] QRSd 95 QRS 60 QT 373 T -37 QTc 500 Conclusion Atrial fibrillation...V-rate 78-123, irreg A-activity Borderline repol abnormality, diffuse leads...ST dep, T flat/neg, ant/lat/inf. Afib. Normal axis. No STEMI. I have reviewed and interpreted ECG and agree with software generated interpretation.
[2022-03-29 12:21] LABS: Abs Immature Grans 0.05 10^3/uL (0.0-0.06); Absolute Basophil Count 0.05 10^3/uL (0.0-0.2); Absolute Monocyte Count 1.35 10^3/uL (0.1-0.8); Absolute Neutrophil Count 11.64 10^3/uL (1.2-6.7); Basophils % 0.3; Eosinophils % 0.1; HCT 46.9 % (40.0-50.0); HGB 16.4 g/dL (13.5-17.5); Immature Grans % 0.3; Lymphocytes % 14.4; MCH 32.5 pg (27.0-33.0); MCV 93 fL (80-95); MPV 11.2 fL (8.0-11.0); Monocytes % 8.8; Neutrophils % 76.1; Platelet Count 218 10^3/uL (130-400); RBC 5.05 10^6/uL (4.36-5.78); RDW 12.8 % (11.8-14.1)
[2022-03-29 12:23] LABS: Absolute Eosinophil Count 0.02 10^3/uL (0.0-0.7)
--- NOTE | 2022-03-29 12:30 | DI.CT_ITS ---
Exam(s) CT HEAD WO EXAM: CT HEAD WO CLINICAL HISTORY: confusion, r/o acute cva. TECHNIQUE: Imaging Protocol: Axial computed tomography images with coronal and sagittal reformatted images were created and reviewed COMPARISON: CT CT HEAD CERVICAL SPINE WO from 09/03/2021 FINDINGS: There are no skull fractures. 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 There is no fluid in the visualized paranasal sinuses. There is no evidence of intracranial hemorrhage, mass effect, or shift of midline structures. There are no extra-axial fluid collections. The ventricles are not enlarged or shifted and there is no blo od within the ventricular system nor within the basal cisterns. IMPRESSION: No acute intracranial findings on this noninfused CT scan of the brain. No significant change compar ed to 09/03/2021. 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 RADIATION DOSE DELIVERED: 884.99mGy.cm Total DLP DATA REPOSITORY: All CT scans at this facility are submitted to the National Radiology Data Registry (NRDR) Dose Index Registry (DIR) with the [employer] ([employer]). RADIATION OPTIMIZATION: All CT scans at this facility use at least one of these dose optimization te chniques: automated exposure control; mA and/or kV adjustment per patient size (includes targeted exa ms where dose is matched to clinical indication); or iterative reconstruction.
--- NOTE | 2022-03-29 12:30 | W.ED.GENAD ---
Discharge Plan Disposition Patient Disposition: [facility] INPATIENT Condition: Stable Discharge Details Clinical Impression: Altered mental status, Atrial fibrillation with rapid ventricular response, Vomiting Admit Date/Time: 03/29/22 15:33 Admit Provider: Brice Hickman Attending Provider: Brice Hickman Primary Care Provider: Nisha Carrillo ED Provider: Kelley Borges Discharge Data Discharge Date/Time-TO BE ENTERED AT DEPARTURE: 03/29/22 17:01 Medical Decision Making 61-year-old male with a history of obesity, hypertension, diabetes, atrial fibrillation, anxiety, bipolar disorder and schizophrenia presents from home for confusion and diaphoresis from home health this morning. He also complained of vomiting and difficulty breathing with an episode of weakness and fall this morning without injury. EKG on arrival notes a rate of 108, atrial fibrillation and no STEMI. Review of medications notes that he is not taking any medication for rate control but is on Eliquis. I have seen patient in the past and he has made illogical statements previously. When told patient the plan today he asked so will I be here a month?. He appears to answer some questions correctly and is oriented x3 but may answer no to a question and answer yes to the same question. He is moving all extremities and no focal deficits. His abdomen is soft and nontender. Differential diagnosis includes UTI, COVID, CVA, A. fib with RVR, dehydration, electrolyte abnormality. We will place an IV, bolus IV fluids, screening labs, CT head, chest x-ray and continue to monitor. If heart rate remains elevated will start diltiazem and metoprolol. Labs labs and imaging reviewed. White blood cell count 15. Potassium 3.2. Magnesium 1.6. Troponin negative. Urinalysis negative for infection. Fluvid negative. CT head negative for acute findings. CXR notes airspace disease Left lower lobe. Oxygen saturation 93 to 95% on room air. Patient does appear mildly diaphoretic. A dose of Cardizem was ordered for heart rate in the 110s to 120s but this has improved and is between 80s and 100s so Cardizem held. We will order a CT chest to rule out PE. Will replete magnesium and potassium. Patient is not taking any medication for his atrial fibrillation. Will admit for telemetry monitoring, reassessment of his confusion and PT. Case discussed with hospitalist who accepts patient for admission. Procalcitonin and CT pending. Medical Records Medical records reviewed: Yes I reviewed the patient's medical records. Imaging Data Radiologic Study: Radiologist's impression: XR Chest Exam date and time: 03/29/2022 1:19 PM Age: 61 years old Clinical indication: Other: SOB, R/O acute disease TECHNIQUE: Imaging protocol: Radiologic exam of the chest. Views: 2 views. COMPARISON: CT CHEST/ABD/PEL WO 09/03/2021 4:28 AM FINDINGS: Lungs: Lung volumes are increased suggestive of COPD. There is some opacity at the left lung base/left lower lobe which may represent atelectasis or airspace disease. Pleural spaces: A large pleural effusion, or pneumothorax is not seen Heart/Mediastinum:? Heart is upper limits of normal in size.. Bones/joints: Degenerative changes are seen in the spine. There is no acute bony abnormality. Other findings: There is no overt CHF IMPRESSION: 1. Findings suggestive of COPD. 2. Atelectasis or airspace disease left lower lobe. CT Head Without Contrast Exam date and time: 03/29/2022 1:04 PM Age: 61 years old Clinical indication: Altered mental status/memory loss; Other: Confusion, R/O CVA TECHNIQUE: Imaging protocol: Computed tomography of the head without contrast. Radiation optimization: All CT scans at this facility use at least one of these dose optimization techniques: automated exposure control; mA and/or kV adjustment per patient size (includes targeted exams where dose is matched to clinical indication); or iterative reconstruction. COMPARISON: CT HEAD CERVICAL SPINE WO 09/03/2021 4:06 AM FINDINGS: Brain: There is no new hemorrhage, mass or shift. There is no new cortical or major vascular territory infarct. There are no significant extra-axial collections. 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 No significant sinus opacification or fluid level Mastoid air cells: No significant mastoid or middle ear opacification Bones/joints: No new bony abnormality Soft tissues: No significant subcutaneous abnormality Vasculature: No new hyperdense intravascular thrombus the Other findings: Exam degraded by patient motion. IMPRESSION: Exam mildly degraded by patient motion. No acute intracranial findings. No significant interval change. Lab Data Lab results reviewed: Yes I reviewed the patient's lab results. Labs: Laboratory Tests Range/Units 03/29/22 03/29/22 03/29/22 12:07 12:07 12:07 WBC (4.4-10.8) 10^3/uL 15.30 H RBC (4.36-5.78) 10^6/uL 5.05 Hgb (13.5-17.5) g/dL 16.4 Hct (40.0-50.0) % 46.9 MCV (80-95) fL 93 MCH (27.0-33.0) pg 32.5 MCHC (32.0-36.0) % 35.0 RDW (11.8-14.1) % 12.8 Plt Count (130-400) 10^3/uL 218 MPV (8.0-11.0) fL 11.2 H Immature Gran % 0.3 Neutrophils % 76.1 Lymphocytes % 14.4 Monocytes % 8.8 Eosinophils % 0.1 Basophils % 0.3 Nucleated RBC % (0.0-0.3) % 0.0 Absolute Neutrophils (1.2-6.7) 10^3/uL 11.64 H Absolute Lymphocytes (1.2-3.4) 10^3/uL 2.20 Absolute Monocytes (0.1-0.8) 10^3/uL 1.35 H Absolute Eosinophils (0.0-0.7) 10^3/uL 0.02 Absolute Basophils (0.0-0.2) 10^3/uL 0.05 Sodium (136-145) mmol/L 142 Potassium (3.5-5.1) mmol/L 3.2 L Chloride (98-107) mmol/L 105 Carbon Dioxide (21.0-32.0) mmol/L 23.4 Anion Gap (3-11) mmol/L 13.6 H BUN (7-18) mg/dL 23 H Creatinine (0.70-1.30) mg/dL 1.2 Est GFR (CKD-EPI 2020) (mL/min/1.73m2) 67.95 Glucose (74-106) mg/dL 155 H Calcium (8.5-10.1) mg/dL 9.3 Magnesium (1.8-2.4) mg/dL 1.6 L Total Bilirubin (0.2-1.0) mg/dL 0.8 AST (15-37) U/L 51 H ALT (16-63) U/L 33 Alkaline Phosphatase (46-116) U/L 68 Troponin I (<or=60) ng/L < 50 Total Protein (6.4-8.2) g/dL 7.5 Albumin (3.4-5.0) g/dL 3.7 Lipase (73-393) U/L 21 Procalcitonin ng/mL Urine Color (Yellow) Urine Clarity (Clear) Urine pH (5-8) Ur Specific [place] (1.005-1.025) Urine Protein (Negative) mg/dL Urine Ketones (Negative) mg/dL Urine Blood (Negative) Urine Nitrite (Negative) Urine Bilirubin (Negative) Urine Urobilinogen (Up TO 0.2) EU/dL Ur Leukocyte Esterase (Negative) Urine RBC (0-2) HPF Urine WBC (0-5) HPF Ur Epithelial Cells (Negative) HPF Urine Crystals (Negative) HPF Urine Bacteria (Negative) HPF Urine Casts (Negative) LPF Urine Mucus (Negative) Ur Culture Indicated? Urine Glucose (Negative) mg/dL COVID-19 Source SARS-CoV-2 (PCR) (Negative) Influenza Type A (PCR) (Negative) Influenza Type B (PCR) (Negative) RSV (PCR) (Negative) Range/Units 03/29/22 03/29/22 03/29/22 12:14 14:10 15:08 WBC (4.4-10.8) 10^3/uL RBC (4.36-5.78) 10^6/uL Hgb (13.5-17.5) g/dL Hct (40.0-50.0) % MCV (80-95) fL MCH (27.0-33.0) pg MCHC (32.0-36.0) % RDW (11.8-14.1) % Plt Count (130-400) 10^3/uL MPV (8.0-11.0) fL Immature Gran % Neutrophils % Lymphocytes % Monocytes % Eosinophils % Basophils % Nucleated RBC % (0.0-0.3) % Absolute Neutrophils (1.2-6.7) 10^3/uL Absolute Lymphocytes (1.2-3.4) 10^3/uL Absolute Monocytes (0.1-0.8) 10^3/uL Absolute Eosinophils (0.0-0.7) 10^3/uL Absolute Basophils (0.0-0.2) 10^3/uL Sodium (136-145) mmol/L Potassium (3.5-5.1) mmol/L Chloride (98-107) mmol/L Carbon Dioxide (21.0-32.0) mmol/L Anion Gap (3-11) mmol/L BUN (7-18) mg/dL Creatinine (0.70-1.30) mg/dL Est GFR (CKD-EPI 2020) (mL/min/1.73m2) Glucose (74-106) mg/dL Calcium (8.5-10.1) mg/dL Magnesium (1.8-2.4) mg/dL Total Bilirubin (0.2-1.0) mg/dL AST (15-37) U/L ALT (16-63) U/L Alkaline Phosphatase (46-116) U/L Troponin I (<or=60) ng/L < 50 Total Protein (6.4-8.2) g/dL Albumin (3.4-5.0) g/dL Lipase (73-393) U/L Procalcitonin ng/mL Urine Color (Yellow) Dark Yellow Urine Clarity (Clear) Clear Urine pH (5-8) 6.0 Ur Specific [place] (1.005-1.025) >= 1.030 H Urine Protein (Negative) mg/dL 100 H Urine Ketones (Negative) mg/dL 15 H Urine Blood (Negative) Negative Urine Nitrite (Negative) Negative Urine Bilirubin (Negative) Moderate H Urine Urobilinogen (Up TO 0.2) EU/dL 1.0 H Ur Leukocyte Esterase (Negative) Negative Urine RBC (0-2) HPF 0-2 Urine WBC (0-5) HPF 0-2 Ur Epithelial Cells (Negative) HPF Few Urine Crystals (Negative) HPF Rare Amorphous Urine Bacteria (Negative) HPF Rare Urine Casts (Negative) LPF 3-5 Hyaline Urine Mucus (Negative) Heavy Ur Culture Indicated? No Urine Glucose (Negative) mg/dL Negative COVID-19 Source Not Applicable SARS-CoV-2 (PCR) (Negative) Negative Influenza Type A (PCR) (Negative) Negative Influenza Type B (PCR) (Negative) Negative RSV (PCR) (Negative) Negative Range/Units 03/29/22 15:18 WBC (4.4-10.8) 10^3/uL RBC (4.36-5.78) 10^6/uL Hgb (13.5-17.5) g/dL Hct (40.0-50.0) % MCV (80-95) fL MCH (27.0-33.0) pg MCHC (32.0-36.0) % RDW (11.8-14.1) % Plt Count (130-400) 10^3/uL MPV (8.0-11.0) fL Immature Gran % Neutrophils % Lymphocytes % Monocytes % Eosinophils % Basophils % Nucleated RBC % (0.0-0.3) % Absolute Neutrophils (1.2-6.7) 10^3/uL Absolute Lymphocytes (1.2-3.4) 10^3/uL Absolute Monocytes (0.1-0.8) 10^3/uL Absolute Eosinophils (0.0-0.7) 10^3/uL Absolute Basophils (0.0-0.2) 10^3/uL Sodium (136-145) mmol/L Potassium (3.5-5.1) mmol/L Chloride (98-107) mmol/L Carbon Dioxide (21.0-32.0) mmol/L Anion Gap (3-11) mmol/L BUN (7-18) mg/dL Creatinine (0.70-1.30) mg/dL Est GFR (CKD-EPI 2020) (mL/min/1.73m2) Glucose (74-106) mg/dL Calcium (8.5-10.1) mg/dL Magnesium (1.8-2.4) mg/dL Total Bilirubin (0.2-1.0) mg/dL AST (15-37) U/L ALT (16-63) U/L Alkaline Phosphatase (46-116) U/L Troponin I (<or=60) ng/L Total Protein (6.4-8.2) g/dL Albumin (3.4-5.0) g/dL Lipase (73-393) U/L Procalcitonin ng/mL < 0.1 Urine Color (Yellow) Urine Clarity (Clear) Urine pH (5-8) Ur Specific [place] (1.005-1.025) Urine Protein (Negative) mg/dL Urine Ketones (Negative) mg/dL Urine Blood (Negative) Urine Nitrite (Negative) Urine Bilirubin (Negative) Urine Urobilinogen (Up TO 0.2) EU/dL Ur Leukocyte Esterase (Negative) Urine RBC (0-2) HPF Urine WBC (0-5) HPF Ur Epithelial Cells (Negative) HPF Urine Crystals (Negative) HPF Urine Bacteria (Negative) HPF Urine Casts (Negative) LPF Urine Mucus (Negative) Ur Culture Indicated? Urine Glucose (Negative) mg/dL COVID-19 Source SARS-CoV-2 (PCR) (Negative) Influenza Type A (PCR) (Negative) Influenza Type B (PCR) (Negative) RSV (PCR) (Negative) ECG Data Attestation: I personally reviewed and interpreted this ECG (s) as follows: Interpretation: Rate of 108, atrial fibrillation, normal axis, no STEMI HPI General Mode of arrival: EMS. Date/Time Provider Initiated Documentation: 03/29/22 12:03. Limitations to Documentation: no limitations. Information obtained by: patient. HPI Narrative: Patient is a 61-year-old male with a history of hypertension, obesity, diabetes, atrial fibrillation, anxiety, bipolar disorder and schizophrenia presents from home for confusion and diaphoresis noted by home health this morning. Patient states he was attempting to get into a chair this morning and felt weak. He states he did fall when feeling weak this morning but denies any injury. He admits to recent vomiting clear and bile. He also admits to difficulty breathing. He denies any fever, headache, chest pain, abdominal pain, diarrhea or urinary symptoms. Related Data Home Medications Medication Instructions Recorded Confirmed atorvastatin 10 mg tablet (Lipitor) 10 mg PO QPM 01/23/16 03/31/22 melatonin 3 mg tablet,extended 3 mg PO HS PRN 01/23/16 03/31/22 release thyroid (pork) 90 mg tablet 90 mg PO QAM 01/23/16 03/31/22 ([place] Thyroid) apixaban 5 mg tablet (Eliquis) 5 mg PO BID #180 tabs 07/20/17 03/31/22 sennosides 8.6 mg tablet (senna) 8.6 mg PO BID PRN 1 day 07/28/17 03/31/22 albuterol sulfate 90 mcg/actuation 2 puff inhalation Q4H PRN 03/27/19 03/31/22 aerosol inhaler (Ventolin HFA) ropinirole 1 mg tablet 1 mg PO DIRECTED 03/27/19 03/31/22 docusate sodium 100 mg capsule 200 mg PO BID PRN 11/13/20 03/31/22 fluticasone propionate 50 1 spray intranasal Q12H 05/13/21 03/31/22 mcg/actuation nasal spray,suspension lisinopril 5 mg tablet 5 mg PO DAILY 07/31/21 03/31/22 furosemide 20 mg tablet 20 mg PO DAILY 08/10/21 03/31/22 Lactobacillus acidophilus 10 0 cell PO HS 09/15/21 03/31/22 billion cell capsule (Probiotic) metformin 1,000 mg tablet 1,000 mg PO BID 09/15/21 03/31/22 polyethylene glycol 3350 17 17 g PO BID PRN 09/15/21 03/31/22 gram/dose oral powder (Miralax) bisacodyl 5 mg tablet,delayed 10 mg PO DAILY 09/16/21 03/31/22 release divalproex 500 mg tablet,extended 2,000 mg PO HS 09/16/21 03/31/22 release 24 hr loratadine 10 mg tablet 10 mg PO DAILY PRN 09/16/21 03/31/22 clozapine 200 mg tablet 400 mg PO HS 11/14/21 03/31/22 lorazepam 0.5 mg tablet 0.5 mg PO .QH PRN 11/14/21 03/31/22 clozapine 100 mg tablet 100 mg PO QHS 03/29/22 03/31/22 clindamycin HCl 300 mg capsule 300 mg PO TID #15 caps 03/30/22 03/31/22 magnesium chloride 64 mg 64 mg PO DAILY #30 tabs 03/30/22 03/31/22 (magnesium chloride) tablet metoprolol succinate 25 mg 12.5 mg PO DAILY #30 tabs 03/30/22 03/31/22 tablet,extended release 24 hr potassium chloride 20 mEq 20 meq PO DAILY #30 tabs 03/30/22 03/31/22 tablet,extended release Previous Rx's Medication Instructions Recorded apixaban 5 mg tablet (Eliquis) 5 mg PO BID #180 tabs 07/20/17 clindamycin HCl 300 mg capsule 300 mg PO TID #15 caps 03/30/22 magnesium chloride 64 mg 64 mg PO DAILY #30 tabs 03/30/22 (magnesium chloride) tablet metoprolol succinate 25 mg 12.5 mg PO DAILY #30 tabs 03/30/22 tablet,extended release 24 hr potassium chloride 20 mEq 20 meq PO DAILY #30 tabs 03/30/22 tablet,extended release Allergies Allergy/AdvReac Type Severity Reaction Status Date / Time Penicillins AdvReac Intermediate black out Unverified 11/29/21 16:40 gabapentin AdvReac Mild Headache Unverified 11/29/21 16:40 niacin AdvReac Mild turn red Unverified 11/29/21 16:40 General Stated Complaint: AMS/LOC MARY: 2 Review of Systems All systems reviewed & are unremarkable except as noted in HPI and below Constitutional Constitutional: Reports as per HPI, Denies chills, Denies fever(s) and Reports weakness Eyes Eyes: Denies blurry vision ENT Ears, Nose, Mouth, and Throat: Denies dizziness, Denies sore throat and Denies throat swelling Cardiovascular Cardiovascular: Denies chest pain and Reports dyspnea Respiratory Respiratory: Denies cough and Reports dyspnea Gastrointestinal Gastrointestinal: Denies abdominal pain, Denies diarrhea and Reports vomiting Genitourinary Genitourinary: Denies hematuria and Denies dysuria Musculoskeletal Musculoskeletal: Denies back pain and Denies numbness Integumentary/Breasts Skin/Breast: Denies lesions and Denies rash Neurologic Neurologic: Denies dizziness, Denies localized weakness, Denies numbness and Reports weakness Allergic/Immunologic Allergic/Immunologic: Denies throat swelling PFSH All Active Problems (Updated 03/31/22 @ 16:16 by Odalys Johns NP) Diabetes mellitus, type 2 (Acute) Chronic schizophrenia (Acute) Hypomagnesemia (Acute) Ambulatory dysfunction (Acute) Hypokalemia (Acute) Atrial fibrillation with rapid ventricular response (Acute) Alteration in thought content as evidenced by delusions (Acute) Cellulitis (Acute) Cellulitis of left ankle (Acute) Blister of left foot (Acute) Hyperglycemia (Acute) Vitreous floaters of right eye (Acute) BRENNEN (acute kidney injury) (Acute) Screening for colorectal cancer (Acute) Medical History Afib Atrial enlargement, bilateral BCC (basal cell carcinoma of skin) Bipolar disorder Chronic constipation Chronic schizophrenia Diabetes mellitus, type 2 Diverticulosis Heel ulcer HTN (hypertension) Hypothyroidism Non-ST elevation MD (NSTEMI) OAB (overactive bladder) Obesity RLS (restless legs syndrome) Urinary incontinence Surgical History Colonoscopy - MAC (01/25/16) 2010 Excision, Lipoma Hx of cholecystectomy Hydrocelectomy Tonsillectomy Family History Mother No problems noted. Father Heart disease Brother Alcohol abuse Social History Smoking/Tobacco Use Status: Current every day Tobacco Type: cigarettes Smoking risk assessment performed?: Yes Alcohol Intake: current Alcohol Intake frequency: holidays/special occasions only Alcohol type: beer and hard liquor Drug use: Current Sobriety Substance use type: does not use Do you feel safe at home: No (not comfortable) Do you feel safe in your relationship?: Yes Additional Social history: no pillows, no bathing supplies People are not doing a good job cleaning up, the kitchen draws are not clean clean. Exam Const General: cooperative and no acute distress Orientation: alert, awake, oriented x3 and confused (making illogical statements-asks if would be here a month) HENMT Head: normal to inspection Face and sinus: normal facial exam Eyes General: appearance normal, both eyes and all related structures Pupils: PERRL EOM: EOM intact bilaterally Neck Neck: normal visual inspection and No submandibular swelling Lymphatic: no lymphadenopathy noted Chest Chest: normal inspection of the chest and no tenderness Resp Effort & Inspection: normal respiratory effort and able to speak in complete sentences Auscultation: clear to auscultation bilaterally Cardio Rate: tachycardic Rhythm: abnormal rhythm irregularly irregular GI Inspection: normal to inspection and obesity Palpation: soft, not firm, not rigid and nontender Auscultation: no hypoactive bowel sounds Male General Exam: Yes normal external exam Back/Spine/Pelvis Thoracic/Lumbar Spine: thoracic and lumbar spine normal to inspection Pelvis: no pain with anterior-posterior compression Skin General skin exam: no rashes or lesions noted Neuro General: patient alert, patient awake and patient oriented x3 Cognition: normal cognition Speech: speech normal Motor: muscle tone normal throughout Sensory Exam: no sensory deficits noted Extrem General: normal to inspection, full ROM, capillary refill normal, no calf tenderness bilaterally and no edema Psych Appearance: grossly normal Mental Status: mental status grossly normal Speech and Movement: speech and movement normal Affect: normal affect Course Vital Signs Vital signs: Vital Signs Pulse 105 H 03/29/22 12:01 Respiratory Rate 20 03/29/22 12:01 Temperature Source Oral 03/29/22 12:01 Pulse 95 H 03/29/22 12:16 Pulse 103 H 03/29/22 12:20 Respiratory Rate 31 H 03/29/22 12:20 Respiratory Effort 03/29/22 12:16 Respiratory Depth Normal 03/29/22 12:16 Respiratory Pattern Normal 03/29/22 12:16 Blood Pressure 128/71 03/29/22 12:16 Blood Pressure Mean 81 03/29/22 12:16 Pulse Oximetry 93 03/29/22 12:16 Oxygen Delivery Method Room Air 03/29/22 12:01 Oxygen Flow Rate 0 03/29/22 12:01 Pain Level 0 03/29/22 12:01 Lab/Test Results Lab/Test Results: Laboratory Tests Range/Units 03/29/22 12:07 WBC (4.4-10.8) 10^3/uL 15.30 H RBC (4.36-5.78) 10^6/uL 5.05 Hgb (13.5-17.5) g/dL 16.4 Hct (40.0-50.0) % 46.9 MCV (80-95) fL 93 MCH (27.0-33.0) pg 32.5 MCHC (32.0-36.0) % 35.0 RDW (11.8-14.1) % 12.8 Plt Count (130-400) 10^3/uL 218 MPV (8.0-11.0) fL 11.2 H Immature Gran % 0.3 Neutrophils % 76.1 Lymphocytes % 14.4 Monocytes % 8.8 Eosinophils % 0.1 Basophils % 0.3 Nucleated RBC % (0.0-0.3) % 0.0 Absolute Neutrophils (1.2-6.7) 10^3/uL 11.64 H Absolute Lymphocytes (1.2-3.4) 10^3/uL 2.20 Absolute Monocytes (0.1-0.8) 10^3/uL 1.35 H Absolute Eosinophils (0.0-0.7) 10^3/uL 0.02 Absolute Basophils (0.0-0.2) 10^3/uL 0.05
[2022-03-29 12:38] LABS: ALT 33 U/L (16-63); AST 51 U/L (15-37); Albumin 3.7 g/dL (3.4-5.0); Alkaline Phosphatase 68 U/L (46-116); Anion Gap 13.6 mmol/L (3-11); BUN 23 mg/dL (7-18); Bilirubin, Total 0.8 mg/dL (0.2-1.0); CO2 23.4 mmol/L (21.0-32.0); CREATININE 1.2 mg/dL (0.70-1.30); Calcium 9.3 mg/dL (8.5-10.1); Chloride 105 mmol/L (98-107); Estimated GFR 67.95 (mL/min/1.73m2); Glucose 155 mg/dL (74-106); Magnesium 1.6 mg/dL (1.8-2.4); Potassium 3.2 mmol/L (3.5-5.1); Sodium 142 mmol/L (136-145); Total Protein 7.5 g/dL (6.4-8.2); Troponin I < 50 ng/L (<or=60)
[2022-03-29] MEDS: Normal Saline 1,000 ML 1000 ML IV (12:48)
[2022-03-29 12:51] LABS: Lipase 21 U/L (73-393)
[2022-03-29 12:56] LABS: COVID-19 PCR Negative (Negative); Influenza A PCR Negative (Negative); Influenza B PCR Negative (Negative); RSV PCR Negative (Negative)
--- NOTE | 2022-03-29 13:32 | DI.VRAD_ITS ---
PROCEDURE INFORMATION: Exam: CT Head Without Contrast Exam date and time: 03/29/2022 1:04 PM Age: 61 years old Clinical indication: Altered mental status/memory loss; Other: Confusion, R/O CVA TECHNIQUE: Imaging protocol: Computed tomography of the head without contrast. Radiation optimization: All CT scans at this facility use at least one of these dose optimization techniques: automated exposure control; mA and/or kV adjustment per patient size (includes targeted exams where dose is matched to clinical indication); or iterative reconstruction. COMPARISON: CT HEAD CERVICAL SPINE WO 09/03/2021 4:06 AM FINDINGS: Brain: There is no new hemorrhage, mass or shift. There is no new cortical or major vascular territory infarct. There are no significant extra-axial collections. 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 No significant sinus opacification or fluid level Mastoid air cells: No significant mastoid or middle ear opacification Bones/joints: No new bony abnormality Soft tissues: No significant subcutaneous abnormality Vasculature: No new hyperdense intravascular thrombus the Other findings: Exam degraded by patient motion. IMPRESSION: Exam mildly degraded by patient motion. No acute intracranial findings. No significant interval change. Dictated and Authenticated by: Rosa M Jimenez MD. Ordering:JAYLIN Benson MD
--- NOTE | 2022-03-29 13:43 | DI.VRAD_ITS ---
PROCEDURE INFORMATION: Exam: XR Chest Exam date and time: 03/29/2022 1:19 PM Age: 61 years old Clinical indication: Other: SOB, R/O acute disease TECHNIQUE: Imaging protocol: Radiologic exam of the chest. Views: 2 views. COMPARISON: CT CHEST/ABD/PEL WO 09/03/2021 4:28 AM FINDINGS: Lungs: Lung volumes are increased suggestive of COPD. There is some opacity at the left lung base/left lower lobe which may represent atelectasis or airspace disease. Pleural spaces: A large pleural effusion, or pneumothorax is not seen Heart/Mediastinum: Heart is upper limits of normal in size.. Bones/joints: Degenerative changes are seen in the spine. There is no acute bony abnormality. Other findings: There is no overt CHF IMPRESSION: 1. Findings suggestive of COPD. 2. Atelectasis or airspace disease left lower lobe. Dictated and Authenticated by: Rosa M Jimenez MD. Ordering:JAYLIN Benson MD
[2022-03-29 14:29] LABS: Bilirubin Moderate (Negative); Blood Negative (Negative); Clarity Clear (Clear); Glucose Negative (Negative); Ketones 15 mg/dL (Negative); Leukocyte Esterase Negative (Negative); Nitrite Negative (Negative); Specific Gravity >= 1.030 (1.005-1.025)
[2022-03-29 14:38] LABS: Bacteria Rare HPF (Negative); C & S Indicated? No; Casts 3-5 Hyaline LPF (Negative); Crystals Rare Amorphous HPF (Negative); Epithelial Cells Few HPF (Negative); Mucus Heavy (Negative); RBC 0-2 HPF (0-2); WBC 0-2 HPF (0-5)
--- NOTE | 2022-03-29 15:15 | DI.CT_ITS ---
Exam(s) CT CHEST PE CTA EXAM: CT CHEST PE CTA CLINICAL HISTORY: tachycardia, r/o PE. TECHNIQUE: Imaging Protocol: CT angiography of the chest was performed using pulmonary embolus jayashree col. Multi planar reconstructions were performed. CONTRAST MATERIAL: Intravenous: Omnipaque 350 Contrast volume: 100 cc COMPARISON: CT CT THORACIC LUMBAR SPINE REC from 09/03/2021 CR,XR XR CHEST 2V PA LATERAL from 03/29/2022 FINDINGS: CHEST: PULMONARY ARTERIES: There are obvious intraluminal filling defects to suggest acute pulmonary emboli. Less than optimal bolus injection. LUNGS: Significant infiltrate in the left lower lobe posterior and lateral basal segments. No obviou s pleural effusion. Lesser amount of increased markings in the right lung base. No ominous pulmonar y nodules. No significant findings in the trachea and mainstem bronchi.. MEDIASTINUM: There is no hilar nor mediastinal adenopathy. Visualized thyroid unremarkable. CARDIAC: Mild cardiomegaly. No pericardial effusion. Coronary artery calcification noted-moderate.C aliber of the thoracic aorta is within normal limits. There is no significant shift of the intervent ricular septum. PARTIALLY VISUALIZED UPPERMOST ABDOMEN: No obvious findings OSSEOUS: No significant osseous lesions.. IMPRESSION: 1. No evidence of obvious acute pulmonary emboli. 2. The main finding appears to be a significant area of infiltrate in the left lower lobe posterior b jackie segment. No prominent pleural effusion. 3. No intrathoracic adenopathy. RADIATION DOSE DELIVERED: 610.25mGy.cm Total DLP DATA REPOSITORY: All CT scans at this facility are submitted to the National Radiology Data Registry (NRDR) Dose Index Registry (DIR) with the [employer] (ACR). RADIATION OPTIMIZATION: All CT scans at this facility use at least one of these dose optimization te chniques: automated exposure control; mA and/or kV adjustment per patient size (includes targeted exa ms where dose is matched to clinical indication); or iterative reconstruction.
[2022-03-29 16:00] LABS: Troponin I < 50 ng/L (<or=60)
[2022-03-29] MEDS: Omnipaque 350 MG/ML 100 ML BTL IJ (16:19)
[2022-03-29] MEDS: Normal Saline Flush 10 ML SYR IVP ×2 (16:19→19:27)
[2022-03-29] MEDS: Potassium Chloride 20 MEQ TABCR 40 MEQ PO (16:23)
[2022-03-29] MEDS: MAGNESIUM SULFATE 1 GM/100 ML BAG IVPB (16:25)
--- NOTE | 2022-03-29 16:36 | DI.VRAD_ITS ---
PROCEDURE INFORMATION: Exam: CTA Chest With Contrast Exam date and time: 03/29/2022 4:01 PM Age: 61 years old Clinical indication: Other: Tachycardia, TECHNIQUE: Imaging protocol: Computed tomographic angiography of the chest with contrast. 3D rendering (Not supervised by radiologist): MIP and/or 3D reconstructed images were created by the technologist. Radiation optimization: All CT scans at this facility use at least one of these dose optimization techniques: automated exposure control; mA and/or kV adjustment per patient size (includes targeted exams where dose is matched to clinical indication); or iterative reconstruction. Contrast material: OMNIPAQUE 350; Contrast volume: 100 ml; Contrast route: INTRAVENOUS (IV); COMPARISON: CT CHEST PE CTA 11/13/2020 5:56 PM FINDINGS: Pulmonary arteries: Evaluation the of the pulmonary arteries is degraded by patient motion. No definite large or central embolus is visualized. Evaluation for small or peripheral emboli is limited. There is apparent intraluminal filling defect within pulmonary arterial branches to the right upper lobe but this is felt to be more likely related to artifact from the patient's adjacent contrast in the SVC than related to acute pulmonary embolus. Aorta: The thoracic aorta is not significantly aneurysmal. There is no evidence of acute dissection. No definite acute aortic abnormality is identified. Lungs: CTA confirms the presence of airspace opacity in the left lower lobe corresponding to abnormality seen on the patient's prior chest x-ray. Findings may represent pneumonia. There likely is minimal atelectasis in the right lower lobe. There is a nonspecific calcification at the medial right lung base best seen on series 7, image 527 possibly granuloma. No other significant airspace consolidation is identified. Pleural spaces: No significant pleural effusion. No evidence of pneumothorax. Heart: The heart is mildly enlarged. Lymph nodes: No significant adenopathy Intraperitoneal space: No acute findings are identified in the visualized upper abdomen. Bones/joints: No acute bony abnormality identified. Soft tissues: No significant subcutaneous abnormality Other findings: Exam degraded by patient motion. Exam is also degraded by artifact from contrast and the patient's right-sided injection. IMPRESSION: 1. Exam degraded by motion artifact, artifact from the patient's right-sided injection. 2. No large or central embolus. Evaluation for small or peripheral emboli is limited. Subtle abnormality noted in several right upper lobe vessels is felt most likely related to artifact from the dense contrast in the adjacent SVC. 3. Airspace disease in the left lower lobe corresponding to abnormality seen on the earlier chest x-ray, may represent pneumonia. Probable minimal atelectasis or airspace disease at the right lung base. Dictated and Authenticated by: Rosa M Jimenez MD. Ordering:JAYLIN Benson MD
--- NOTE | 2022-03-29 17:47 | W.PM.HP.N ---
Date of service: 03/29/22 Time of Service: 17:47 Assessment and Plan Assessment and plan (1) Atrial fibrillation with rapid ventricular response: Status: Acute Assessment and plan: Afib, telemetry, oral metoprolol (2) Bipolar disorder: Assessment and plan: Stable - continue home meds (3) Chronic schizophrenia: Assessment and plan: Stable continue home meds (4) Diabetes mellitus, type 2: Assessment and plan: Stable - Continue Metformin - glucose 155 on admission History of Present Illness Narrative: 61-year-old male patient with a history of obesity, hypertension, diabetes, atrial fibrillation, anxiety, bipolar disorder and schizophrenia presented to the [facility] emergency department from home for confusion and diaphoresis this morning. He also complained of vomiting and difficulty breathing with an episode of weakness and fall this morning without injury. EKG on arrival notes a rate of 108, atrial fibrillation and no STEMI.? Review of medications notes that he is not taking any medication for rate control but is on Eliquis.? He moved all extremities and had no focal deficits.? His abdomen was soft and nontender.? White blood cell count 15.? Potassium 3.2.? Magnesium 1.6.? Troponin negative.? Urinalysis negative for infection. Fluivd negative. CT head negative for acute findings. CXR notes airspace disease Left lower lobe. Oxygen saturation 93 to 95% on room air.? Patient did appear mildly diaphoretic. Patient placed on observation status on the medical floor with telemetry for rate control. Discussed with Dr Hickman Review of Systems All systems reviewed & are unremarkable except as noted in HPI and below PFSH All Active Problems (Updated 03/30/22 @ 12:07 by Mily Thornton NP) Hypokalemia (Acute) DVT prophylaxis (Acute) Discharge planning issues (Acute) Altered mental status (Acute) Atrial fibrillation with rapid ventricular response (Acute) Vomiting (Acute) Alteration in thought content as evidenced by delusions (Acute) Cellulitis (Acute) Cellulitis of left ankle (Acute) Blister of left foot (Acute) Hyperglycemia (Acute) Vitreous floaters of right eye (Acute) BRENNEN (acute kidney injury) (Acute) Screening for colorectal cancer (Acute) Medical History (Updated 03/30/22 @ 12:07 by Mily Thornton NP) Afib Atrial enlargement, bilateral BCC (basal cell carcinoma of skin) Bipolar disorder Chronic constipation Chronic schizophrenia Diabetes mellitus, type 2 Diverticulosis Heel ulcer HTN (hypertension) Hypothyroidism Non-ST elevation [place] (NSTEMI) OAB (overactive bladder) Obesity RLS (restless legs syndrome) Urinary incontinence Surgical History Colonoscopy - MAC (01/25/16) 2010 Excision, Lipoma Hx of cholecystectomy Hydrocelectomy Tonsillectomy Family History Mother No problems noted. Father Heart disease Brother Alcohol abuse Social History Smoking/Tobacco Use Status: Current every day Tobacco Type: cigarettes Smoking risk assessment performed?: Yes Alcohol Intake: current Alcohol Intake frequency: holidays/special occasions only Alcohol type: beer and hard liquor Drug use: Current Sobriety Substance use type: does not use Do you feel safe at home: No (not comfortable) Do you feel safe in your relationship?: Yes Additional Social history: no pillows, no bathing supplies People are not doing a good job cleaning up, the kitchen draws are not clean clean. Meds Allergies and Home Medications Allergies Allergy/AdvReac Type Severity Reaction Status Date / Time Penicillins AdvReac Intermediate black out Unverified 11/29/21 16:40 gabapentin AdvReac Mild Headache Unverified 11/29/21 16:40 niacin AdvReac Mild turn red Unverified 11/29/21 16:40 Home Medications Medication Instructions Recorded Confirmed Type atorvastatin 10 mg tablet (Lipitor) 10 mg PO QPM 01/23/16 03/29/22 History melatonin 3 mg tablet,extended 3 mg PO HS PRN 01/23/16 03/29/22 History release thyroid (pork) 90 mg tablet 90 mg PO QAM 01/23/16 03/29/22 History ([place] Thyroid) apixaban 5 mg tablet (Eliquis) 5 mg PO BID #180 tabs 07/20/17 03/29/22 Rx sennosides 8.6 mg tablet (senna) 8.6 mg PO BID PRN 1 day 07/28/17 03/29/22 History albuterol sulfate 90 mcg/actuation 2 puff inhalation Q4H PRN 03/27/19 11/29/21 History aerosol inhaler (Ventolin HFA) ropinirole 1 mg tablet 1 mg PO DIRECTED 03/27/19 03/29/22 History docusate sodium 100 mg capsule 200 mg PO BID PRN 11/13/20 03/29/22 History fluticasone propionate 50 1 spray intranasal Q12H 05/13/21 11/29/21 History mcg/actuation nasal spray,suspension lisinopril 5 mg tablet 5 mg PO DAILY 07/31/21 03/29/22 History furosemide 20 mg tablet 20 mg PO DAILY 08/10/21 03/29/22 History Lactobacillus acidophilus 10 0 cell PO HS 09/15/21 03/29/22 History billion cell capsule (Probiotic) metformin 1,000 mg tablet 1,000 mg PO BID 09/15/21 03/29/22 History polyethylene glycol 3350 17 17 g PO BID PRN 09/15/21 03/29/22 History gram/dose oral powder (Miralax) bisacodyl 5 mg tablet,delayed 10 mg PO DAILY 09/16/21 11/29/21 History release divalproex 500 mg tablet,extended 2,000 mg PO HS 09/16/21 03/29/22 History release 24 hr loratadine 10 mg tablet 10 mg PO DAILY PRN 09/16/21 03/29/22 History clozapine 200 mg tablet 400 mg PO HS 11/14/21 03/29/22 History lorazepam 0.5 mg tablet 0.5 mg PO .QH PRN 11/14/21 03/29/22 History clozapine 100 mg tablet 100 mg PO QHS 03/29/22 03/29/22 History clindamycin HCl 300 mg capsule 300 mg PO TID #15 caps 03/30/22 Rx magnesium chloride 64 mg 64 mg PO DAILY #30 tabs 03/30/22 Rx (magnesium chloride) tablet metoprolol succinate 25 mg capsule 12.5 mg PO DAILY #15 caps 03/30/22 Rx sprinkle, ext. release 24 hr metoprolol succinate 25 mg 12.5 mg PO DAILY #30 tabs 03/30/22 Rx tablet,extended release 24 hr potassium chloride 20 mEq 20 meq PO DAILY #30 tabs 03/30/22 Rx tablet,extended release Exam Const General: cooperative and no acute distress Orientation: alert, awake and oriented x3 HENMT Head: normal to inspection Face and sinus: normal facial exam Eyes General: appearance normal, both eyes and all related structures Pupils: PERRL EOM: EOM intact bilaterally Neck Neck: normal visual inspection and No submandibular swelling Lymphatic: no lymphadenopathy noted Chest Chest: normal inspection of the chest and no tenderness Resp Effort & Inspection: normal respiratory effort and able to speak in complete sentences Auscultation: clear to auscultation bilaterally Cardio Rate: tachycardic Rhythm: abnormal rhythm irregularly irregular GI Inspection: normal to inspection and obesity Palpation: soft, not firm, not rigid and nontender Auscultation: no hypoactive bowel sounds Male General Exam: Yes normal external exam Back/Spine/Pelvis Thoracic/Lumbar Spine: thoracic and lumbar spine normal to inspection Pelvis: no pain with anterior-posterior compression Skin General skin exam: no rashes or lesions noted Neuro General: patient alert, patient awake and patient oriented x3 Cognition: normal cognition Speech: speech normal Motor: muscle tone normal throughout Sensory Exam: no sensory deficits noted Extrem General: normal to inspection, full ROM, capillary refill normal, no calf tenderness bilaterally and no edema Psych Appearance: grossly normal Mental Status: mental status grossly normal Speech and Movement: speech and movement normal Affect: normal affect Results Labs Result diagrams: 03/30/22 05:23 03/30/22 05:23 Labs: Laboratory Results - last 24 hr 03/29/22 03/29/22 03/29/22 12:07 12:07 12:07 WBC 15.30 H RBC 5.05 Hgb 16.4 Hct 46.9 MCV 93 MCH 32.5 MCHC 35.0 RDW 12.8 Plt Count 218 MPV 11.2 H Immature Gran % 0.3 Neutrophils % 76.1 Lymphocytes % 14.4 Monocytes % 8.8 Eosinophils % 0.1 Basophils % 0.3 Nucleated RBC % 0.0 Absolute Neutrophils 11.64 H Absolute Lymphocytes 2.20 Absolute Monocytes 1.35 H Absolute Eosinophils 0.02 Absolute Basophils 0.05 Sodium 142 Potassium 3.2 L Chloride 105 Carbon Dioxide 23.4 Anion Gap 13.6 H BUN 23 H Creatinine 1.2 Est GFR (CKD-EPI 2020) 67.95 Glucose 155 H Calcium 9.3 Magnesium 1.6 L Total Bilirubin 0.8 AST 51 H ALT 33 Alkaline Phosphatase 68 Troponin I < 50 Total Protein 7.5 Albumin 3.7 Lipase 21 Urine Color Urine Clarity Urine pH Ur Specific [place] Urine Protein Urine Ketones Urine Blood Urine Nitrite Urine Bilirubin Urine Urobilinogen Ur Leukocyte Esterase Urine RBC Urine WBC Ur Epithelial Cells Urine Crystals Urine Bacteria Urine Casts Urine Mucus Ur Culture Indicated? Urine Glucose COVID-19 Source SARS-CoV-2 (PCR) Influenza Type A (PCR) Influenza Type B (PCR) RSV (PCR) 03/29/22 03/29/22 03/29/22 12:14 14:10 15:08 WBC RBC Hgb Hct MCV MCH MCHC RDW Plt Count MPV Immature Gran % Neutrophils % Lymphocytes % Monocytes % Eosinophils % Basophils % Nucleated RBC % Absolute Neutrophils Absolute Lymphocytes Absolute Monocytes Absolute Eosinophils Absolute Basophils Sodium Potassium Chloride Carbon Dioxide Anion Gap BUN Creatinine Est GFR (CKD-EPI 2020) Glucose Calcium Magnesium Total Bilirubin AST ALT Alkaline Phosphatase Troponin I < 50 Total Protein Albumin Lipase Urine Color Dark Yellow Urine Clarity Clear Urine pH 6.0 Ur Specific [place] >= 1.030 H Urine Protein 100 H Urine Ketones 15 H Urine Blood Negative Urine Nitrite Negative Urine Bilirubin Moderate H Urine Urobilinogen 1.0 H Ur Leukocyte Esterase Negative Urine RBC 0-2 Urine WBC 0-2 Ur Epithelial Cells Few Urine Crystals Rare Amorphous Urine Bacteria Rare Urine Casts 3-5 Hyaline Urine Mucus Heavy Ur Culture Indicated? No Urine Glucose Negative COVID-19 Source Not Applicable SARS-CoV-2 (PCR) Negative Influenza Type A (PCR) Negative Influenza Type B (PCR) Negative RSV (PCR) Negative Last Vital Signs Temp 37 C 03/29/22 17:26 Pulse 105 H 03/29/22 17:26 Resp 21 03/29/22 17:26 BP 109/63 03/29/22 17:26 Pulse Ox 94 03/29/22 17:26
[2022-03-29 18:42] LABS: Procalcitonin < 0.1 ng/mL
[2022-03-29] MEDS: Calcium Carbonate *TUMS* 500 MG CHEW PO (19:25)
[2022-03-29] MEDS: Apixaban 5 MG TAB PO (19:25)
[2022-03-29] MEDS: Atorvastatin 10 MG TAB PO (19:26)
[2022-03-29] MEDS: Metoprolol CR 25 MG TABCR 12.5 MG PO (19:27)
--- NOTE | 2022-03-29 20:50 | TELEP.MEDREC ---
Date of service: 03/29/22 Time of Service: 20:50 Telepharmacy Home Med Rec Allergies Allergies: Penicillins Adverse Reaction (Intermediate, Unverified 11/29/21 16:40) black out gabapentin Adverse Reaction (Mild, Unverified 11/29/21 16:40) Headache niacin Adverse Reaction (Mild, Unverified 11/29/21 16:40) turn red Interview Person Interviewed: Pt interviewed by Jerome Mojica [facility] [place] from [facility] who delivers meds to pt qam and qpm interviewed by Di Torres, Taylor, [facility] Quality Quality of Interview/Accuracy of Medication List: Good Sources Sources used to compile medication list: [facility] Medication List, Patient List and Other ([facility] List) Changes made to Home Medication List: ADDITIONS: Clozapine 100 mg po qhs with two 200 mg tabs for total dose of 500 mg po qhs DELETIONS: Calcium carbonate CHANGES: Clozapine 200 mg 2 tabs po qhs with 100 mg tab for total dose of 500 mg po qhs. Additional Notes Additional Notes: Unable to confirm use of fluticasone nasal spray, albuterol inhaler, bisacodyl. Unable to confirm last doses of meds- suspect pt has at least been omiting the clozapine. Pt reports that he still takes lorazepam. Fill hx indicates that he received a small supply as pre-med for an MRI in September. Recommended Changes Recommended Changes(reason for recommendation): Unable to verify last dose of clozapine. If pt has been without a dose for 48 hours or more, recommended to reinitiate tx at 12.5 mg po qday or bid and monitor ANC. Attestation: The home medication list is now updated to the best of my knowledge and is ready to be reconciled by the provider. Please contact the TelePharmacy Medication Reconciliation Pharmacist at for any questions.
[2022-03-29] MEDS: Divalproex Sodium 500 MG TAB.ER.24H 2000 MG PO (21:59)
[2022-03-30 02:56] VITALS: BP 110/77; PULSE 80; RESP 20; TEMP 36.8; O2SAT 93
[2022-03-30] MEDS: Acetaminophen 325 MG TAB PO (05:48)
[2022-03-30 05:49] LABS: Abs Immature Grans 0.05 10^3/uL (0.0-0.06); Absolute Basophil Count 0.05 10^3/uL (0.0-0.2); Absolute Eosinophil Count 0.04 10^3/uL (0.0-0.7); Absolute Lymphocyte Count 2.45 10^3/uL (1.2-3.4); Absolute Monocyte Count 1.23 10^3/uL (0.1-0.8); Basophils % 0.4; Eosinophils % 0.3; HCT 43.4 % (40.0-50.0); HGB 14.9 g/dL (13.5-17.5); Immature Grans % 0.4; Lymphocytes % 18.4; MCHC 34.3 % (32.0-36.0); MCV 93 fL (80-95); MPV 11.4 fL (8.0-11.0); Monocytes % 9.2; Neutrophils % 71.3; Platelet Count 183 10^3/uL (130-400); RBC 4.65 10^6/uL (4.36-5.78); RDW 12.8 % (11.8-14.1); WBC 13.34 10^3/uL (4.4-10.8)
[2022-03-30] MEDS: LORazepam 0.5 MG TAB PO (05:49)
[2022-03-30 05:54] LABS: Absolute Neutrophil Count 9.51 10^3/uL (1.2-6.7)
[2022-03-30 06:12] LABS: FREE T4 1.29 ng/dL (0.76-1.46)
[2022-03-30 06:16] LABS: ALT 26 U/L (16-63); AST 57 U/L (15-37); Albumin 3.2 g/dL (3.4-5.0); Alkaline Phosphatase 64 U/L (46-116); BUN 15 mg/dL (7-18); Bilirubin, Total 0.9 mg/dL (0.2-1.0); CREATININE 0.8 mg/dL (0.70-1.30); Calcium 9.2 mg/dL (8.5-10.1); Chloride 108 mmol/L (98-107); Estimated GFR 99.44 (mL/min/1.73m2); Glucose 126 mg/dL (74-106); Magnesium 1.9 mg/dL (1.8-2.4); Potassium 3.6 mmol/L (3.5-5.1); Sodium 143 mmol/L (136-145); TSH (W/Ref FT4) 0.67 uIU/mL (0.36-3.74); Total Protein 6.8 g/dL (6.4-8.2)
[2022-03-30 07:33] VITALS: BP 105/70; PULSE 78; RESP 20; TEMP 36.5; O2SAT 93
[2022-03-30] MEDS: Apixaban 5 MG TAB PO (07:48)
[2022-03-30] MEDS: Furosemide 20 MG TAB PO (07:48)
[2022-03-30] MEDS: Lisinopril 5 MG TAB PO (07:48)
[2022-03-30] MEDS: Tamsulosin 0.4 MG CAPCR PO (07:48)
[2022-03-30] MEDS: metFORMIN 500 MG TAB 1000 MG PO (07:48)
[2022-03-30] MEDS: Calcium Carbonate *TUMS* 500 MG CHEW PO ×2 (07:48→13:44)
[2022-03-30] MEDS: Metoprolol CR 25 MG TABCR 12.5 MG PO (07:48)
[2022-03-30] MEDS: Normal Saline Flush 10 ML SYR IVP (07:49)
--- NOTE | 2022-03-30 09:04 | INITIAL_ITS ---
- If Service Date Differs Date of service: 03/30/22 Time of Service: 09:04 Care Management Initial Assess REASON FOR HOSPITALIZATION:: atrial fibrillation with RVR PAST MEDICAL HISTORY/PAST SURGICAL HISTORY:: All Active Problems (Updated 03/29/22 @ 18:24 by Mily Thornton NP). DVT prophylaxis (Acute). Discharge planning issues (Acute). Altered mental status (Acute). Atrial fibrillation with rapid ventricular response (Acute). Vomiting (Acute). Alteration in thought content as evidenced by delusions (Acute). Cellulitis (Acute). Cellulitis of left ankle (Acute). Blister of left foot (Acute). Hyperglycemia (Acute). Vitreous floaters of right eye (Acute). BRENNEN (acute kidney injury) (Acute). Screening for colorectal cancer (Acute). Medical History (Updated 03/29/22 @ 18:24 by Mily Thornton NP). Afib. Atrial enlargement, bilateral. BCC (basal cell carcinoma of skin). Bipolar disorder. Chronic constipation. Chronic schizophrenia. Diabetes mellitus, type 2. Diverticulosis. Heel ulcer. HTN (hypertension). Hypothyroidism. Non-ST elevation [place] (NSTEMI). OAB (overactive bladder). Obesity. RLS (restless legs syndrome). Urinary incontinence. Surgical History . Colonoscopy - MAC (01/25/16). 2010. Excision, Lipoma. Hx of cholecystectomy. Hydrocelectomy. Tonsillectomy PREVIOUS FUNCTIONAL STATUS/SOCIAL/FAMILY SUPPORTS:: Judd lives alone in an ap artment in [facility]. He is a [employer] client, and has daily medication drops through [employer] and receives meals on Wheels, but is independent with his ADL's. CURRENT FUNCTIONAL STATUS:: Judd was sitting up in a chair when CM met with him. He was pleasant and answered questions appropriately. Judd had been told he would be discharged today and wanted to know when, and how how would get home. CM arranged transport through [facility] and requested that the provider send his presciptions to [facility]. Because that pharmacy is closed today, Judd was provided with enough medication from the [facility] pharmacy to last until his regular prescriptions can be filled. ADVANCE DIRECTIVES:: On file. Chika GARCIA Has patient been provided with info about the portal/API?: Yes Did the patient sign up for the portal?: No CODE STATUS:: Full Code INSURANCE COVERAGE / FINANCIAL ISSUES:: Medicare. Medicaid CURRENT HOME/COMMUNITY SERVICES/EQUIPMENT:: Judd is a [employer] client PRIMARY CARE PHYSICIAN:: Nisha Carrillo POTENTIAL DISCHARGE NEEDS:: follow up with PCP and community providers PATIENT/FAMILY EDUCATION NEEDS:: Review of discharge instructions, activity, me dications, follow up plan, discuss Ask Me Three TRANSPORTATION:: RCT vs private vehicle PLAN:: Judd will likely dischatrge home with a resumption of community supports through [employer] and home health services. He will follow up with his community providers and plan of care and transport with a friend vs RCT. CM will support Judd and assess for discharge concerns.
[2022-03-30 10:18] VITALS: PULSE 93
[2022-03-30 11:23] VITALS: BP 93/64; PULSE 102; RESP 20; TEMP 36.5; O2SAT 95
--- NOTE | 2022-03-30 11:52 | W.PM.DS.N ---
Date of service: 03/30/22 Time of Service: 11:53 DS: Diagnosis Discharge Diagnosis (1) Atrial fibrillation with rapid ventricular response: Status: Acute (2) Vomiting: Status: Acute (3) Bipolar disorder: (4) Chronic schizophrenia: (5) Diabetes mellitus, type 2: (6) DVT prophylaxis: Status: Acute (7) Discharge planning issues: Status: Acute Discharge Plan Disposition Patient Disposition: HOME Condition: Stable Discharge Details Reason For Visit: Atrial Fibrillation Admit Date/Time: 03/29/22 15:33 Admit Provider: Brice Hickman Attending Provider: Brice Hickman [facility]: 61-year-old male patient with a history of obesity, hypertension, diabetes, atrial fibrillation, anxiety, bipolar disorder and schizophrenia presented to the [facility] emergency department from home for confusion and diaphoresis, with some vomiting and difficulty breathing with an episode of weakness and fall without injury.? EKG on arrival notes a rate of 108, atrial fibrillation and no STEMI.? Review of medications notes that he is not taking any medication for rate control but is on Eliquis.? He moved all extremities and had no focal deficits.? His abdomen was soft and nontender.? White blood cell count 15.? Potassium 3.2.? Magnesium 1.6.? Troponin negative.? Urinalysis negative for infection. Fluivd negative. CT head negative for acute findings. CXR notes airspace disease Left lower lobe. Oxygen saturation 93 to 95% on room air.? Patient did appear mildly diaphoretic in the ED. Patient placed on observation status on the medical floor with telemetry, for rate contol started on Metoprolol. Over night he had no chest pain, no shortness of breath, remained in AFib, had no ectopic beats, and rate slowed to the 70-90s. He was referred to cardiology and PCP for an event monitor. He was given metoprolol until he follows up with his PCP. He was started on magnesium and potassium with recheck of electrolytes ordered in one week. He was given clindamycin for 5 days for possible LLL pneumonia. He was discharged to home, stable, with community support to assist with medications. Home Meds and New Rx's Prescriptions: New metoprolol succinate 25 mg Tablet Extended Release 24 Hr 12.5 mg PO DAILY Qty: 30 0RF clindamycin HCl 300 mg capsule 300 mg PO TID Qty: 15 0RF magnesium chloride 64 mg magnesium tablet 64 mg PO DAILY Qty: 30 0RF potassium chloride 20 mEq tablet extended release 20 meq PO DAILY Qty: 30 0RF metoprolol succinate 25 mg capsule,sprinkle,ER 24hr 12.5 mg PO DAILY Qty: 15 0RF Continued lisinopril 5 mg tablet 5 mg PO DAILY Eliquis 5 MG tablet 5 mg PO BID Qty: 180 12RF sennosides [senna] 8.6 MG tablet 8.6 mg PO BID PRN1 Days Rx Instructions: prn divalproex 500 mg tablet extended release 24 hr 2,000 mg PO HS Rx Instructions: takes at 1600 loratadine 10 mg tablet 10 mg PO DAILY PRN bisacodyl 5 mg tablet,delayed release (DR/EC) 10 mg PO DAILY clozapine 200 mg tablet 400 mg PO HS Rx Instructions: With 100 mg tab for total of 500 mg po qhs lorazepam 0.5 mg tablet 0.5 mg PO .QH PRN atorvastatin [Lipitor] 10 MG tablet 10 mg PO QPM thyroid (pork) [[place] Thyroid] 90 MG tablet 90 mg PO QAM melatonin 3 MG tablet extended release 3 mg PO HS PRN ropinirole 1 mg Tablet 1 mg PO DIRECTED Rx Instructions: DAILY at 1600 albuterol sulfate [Ventolin HFA] 90 mcg/actuation Hfa Aerosol Inhaler 2 puff INHALATION Q4H PRN polyethylene glycol 3350 [Miralax] 17 gram/dose powder 17 g PO BID PRN Label Comments: 17 gram by mouth once a day as needed Probiotic 10 billion cell capsule 0 cell PO HS Label Comments: Take 1 capsule by mouth at bedtime Rx Instructions: 1 CAPSULE PO QHS metformin 1,000 mg tablet 1,000 mg PO BID docusate sodium 100 mg capsule 200 mg PO BID PRN fluticasone propionate 50 mcg/actuation [place],Suspension 1 spray INTRANASAL Q12H furosemide 20 mg tablet 20 mg PO DAILY clozapine 100 mg tablet 100 mg PO QHS Rx Instructions: Take in combination with two 200 mg tabs for total dose of 500 mg po qhs Discharge Instructions Instructions: Clindamycin (By mouth), Metoprolol (By mouth), Potassium Chloride (By mouth), Magnesium (By mouth), A-fib (Atrial Fibrillation) (DC), Hypokalemia (DC), Hypomagnesemia (DC) Additional Instructions: Start potassium and magnesium as your levels are low; continue until you follow up with your PCP. Start Metoprolol once a day; continue until you follow up with your PCP or cardiology. Start clindamycin for possible pneumonia seen on xray. We have placed an order for a cardiac event monitor that your PCP will arrange for you to have (preauthorization needed). An echocardiogram has been ordered and the radiology department will be in touch with you to schedule an appointment. Stand Alone Forms: Nursing Discharge Form Referrals: Lara Montenegro MD [ [facility] STAFF PHYSICIAN] - (Follow up s/p hospitalization for AFib RVR; OP echo ordered. ) Nisha Carrillo MD [Primary Care Provider] - (Follow up with PCP in one-two weeks. Return to the ER if not much better in the follow up time noted. ) Activity:: Activity as Tolerated Equipment/Supplies:: No Equipment Needed Diet:: Low Sodium Discharge Orders Discharge Orders: Discharge Order (Routine); Ordered 03/30/22 Ordered By: Mily Thornton Other Ambulatory Orders: Cardiac Event Recorder (Routine) Timeframe: 1 Week Facility: [facility] - Location: Respiratory Therapy Ordered By: Mily Thornton Basic Metabolic Panel (Routine) Timeframe: 1 Week Location: None Selected Ordered By: Mily Thornton US echocardiogram (Routine) Location: None Selected Ordered By: Mily Thornton Discharge Data Discharge Date/Time-TO BE ENTERED AT DEPARTURE: 03/30/22 14:54 DS: Summary Time Spent with Patient providing and/or coordinating discharge services: Greater than 30 minutes Status at Discharge Functional status at discharge: independent ambulation Overall status at discharge: patient is progressing back to baseline Mental Status: mental status grossly normal Speech and Movement: speech and movement normal Mood: congruent mood Affect: normal affect Exam Const General: cooperative and no acute distress Orientation: alert, awake and oriented x3 HENMT Head: normal to inspection Face and sinus: normal facial exam Eyes General: appearance normal, both eyes and all related structures Pupils: PERRL EOM: EOM intact bilaterally Neck Neck: normal visual inspection and No submandibular swelling Lymphatic: no lymphadenopathy noted Chest Chest: normal inspection of the chest and no tenderness Resp Effort & Inspection: normal respiratory effort and able to speak in complete sentences Auscultation: clear to auscultation bilaterally Cardio Rate: tachycardic Rhythm: abnormal rhythm irregularly irregular GI Inspection: normal to inspection and obesity Palpation: soft, not firm, not rigid and nontender Auscultation: no hypoactive bowel sounds Male General Exam: Yes normal external exam Back/Spine/Pelvis Thoracic/Lumbar Spine: thoracic and lumbar spine normal to inspection Pelvis: no pain with anterior-posterior compression Skin General skin exam: no rashes or lesions noted Neuro General: patient alert, patient awake and patient oriented x3 Cognition: normal cognition Speech: speech normal Motor: muscle tone normal throughout Sensory Exam: no sensory deficits noted Extrem General: normal to inspection, full ROM, capillary refill normal, no calf tenderness bilaterally and no edema Psych Appearance: grossly normal Mental Status: mental status grossly normal Speech and Movement: speech and movement normal Mood: congruent mood Affect: normal affect DS: Data Vitals/I&O Vitals and I&O: Vital Signs Temperature 36.5 C 03/30/22 11:23 Temperature Source Tympanic 03/30/22 11:23 Pulse 102 H 03/30/22 11:23 Pulse Rhythm Irregular 03/30/22 08:22 Pulse 99 H 03/29/22 16:30 Respiratory Rate 20 03/30/22 11:23 Respiratory Effort Non-Labored 03/30/22 08:22 Respiratory Depth Normal 03/30/22 08:22 Respiratory Pattern Normal 03/30/22 08:22 Blood Pressure 93/64 L 03/30/22 11:23 Blood Pressure Mean 85 03/29/22 15:46 Pulse Oximetry 95 03/30/22 11:23 Oxygen Delivery Method Room Air 03/30/22 11:23 Oxygen Flow Rate 0 03/30/22 11:23 Pain Level 0 03/30/22 11:23 Comment 03/30/22 11:23 Intake & Output 03/29/22 03/29/22 03/30/22 11:59 23:59 11:59 Intake Total 1420 / 1420 Output Total 0 / 0 950 / 950 Balance 1420 / 1420 -930 / -930 Weight 91.626 kg 107.6 kg Intake: IV 1020 / 1020 20 Oral 400 / 400 Output: Urine 0 / 0 950 / 950 Other: Urine Color Light Beryl Urine Appearance Clear Clear Urine Odor Normal Comment pT voided in the toilet, 350, and was also was incontinent. Stool Size Moderate Stool Characteristics Soft Brown Voiding Methods Toilet Diaper Incontinent Data Completed and Pending Labs on day of discharge: Labs from last 24 hours 03/30/22 03/30/22 03/30/22 05:23 05:23 05:23 WBC 13.34 H RBC 4.65 Hgb 14.9 Hct 43.4 MCV 93 MCH 32.0 MCHC 34.3 RDW 12.8 Plt Count 183 MPV 11.4 H Immature Gran % 0.4 Neutrophils % 71.3 Lymphocytes % 18.4 Monocytes % 9.2 Eosinophils % 0.3 Basophils % 0.4 Nucleated RBC % 0.0 Absolute Neutrophils 9.51 H Absolute Lymphocytes 2.45 Absolute Monocytes 1.23 H Absolute Eosinophils 0.04 Absolute Basophils 0.05 Sodium 143 Potassium 3.6 Chloride 108 H Carbon Dioxide 25.0 Anion Gap 10.0 BUN 15 Creatinine 0.8 Est GFR (CKD-EPI 2020) 99.44 Glucose 126 H Calcium 9.2 Magnesium 1.9 Total Bilirubin 0.9 AST 57 H ALT 26 Alkaline Phosphatase 64 Troponin I Total Protein 6.8 Albumin 3.2 L Lipase Procalcitonin TSH 0.67 Free T4 1.29 Urine Color Urine Clarity Urine pH Ur Specific Lane Urine Protein Urine Ketones Urine Blood Urine Nitrite Urine Bilirubin Urine Urobilinogen Ur Leukocyte Esterase Urine RBC Urine WBC Ur Epithelial Cells Urine Crystals Urine Bacteria Urine Casts Urine Mucus Ur Culture Indicated? Urine Glucose COVID-19 Source SARS-CoV-2 (PCR) Influenza Type A (PCR) Influenza Type B (PCR) RSV (PCR) 03/29/22 03/29/22 03/29/22 15:18 15:08 14:10 WBC RBC Hgb Hct MCV MCH MCHC RDW Plt Count MPV Immature Gran % Neutrophils % Lymphocytes % Monocytes % Eosinophils % Basophils % Nucleated RBC % Absolute Neutrophils Absolute Lymphocytes Absolute Monocytes Absolute Eosinophils Absolute Basophils Sodium Potassium Chloride Carbon Dioxide Anion Gap BUN Creatinine Est GFR (CKD-EPI 2020) Glucose Calcium Magnesium Total Bilirubin AST ALT Alkaline Phosphatase Troponin I < 50 Total Protein Albumin Lipase Procalcitonin < 0.1 TSH Free T4 Urine Color Dark Yellow Urine Clarity Clear Urine pH [address] >= 1.030 H Urine Protein 100 H Urine Ketones 15 H Urine Blood Negative Urine Nitrite Negative Urine Bilirubin Moderate H Urine Urobilinogen 1.0 H Ur Leukocyte Esterase Negative Urine RBC 0-2 Urine WBC 0-2 Ur Epithelial Cells Few Urine Crystals Rare Amorphous Urine Bacteria Rare Urine Casts 3-5 Hyaline Urine Mucus Heavy Ur Culture Indicated? No Urine Glucose Negative COVID-19 Source SARS-CoV-2 (PCR) Influenza Type A (PCR) Influenza Type B (PCR) RSV (PCR) 03/29/22 03/29/22 03/29/22 12:14 12:07 12:07 WBC 15.30 H RBC 5.05 Hgb 16.4 Hct 46.9 MCV 93 MCH 32.5 MCHC 35.0 RDW 12.8 Plt Count 218 MPV 11.2 H Immature Gran % 0.3 Neutrophils % 76.1 Lymphocytes % 14.4 Monocytes % 8.8 Eosinophils % 0.1 Basophils % 0.3 Nucleated RBC % 0.0 Absolute Neutrophils 11.64 H Absolute Lymphocytes 2.20 Absolute Monocytes 1.35 H Absolute Eosinophils 0.02 Absolute Basophils 0.05 Sodium Potassium Chloride Carbon Dioxide Anion Gap BUN Creatinine Est GFR (CKD-EPI 2020) Glucose Calcium Magnesium Total Bilirubin AST ALT Alkaline Phosphatase Troponin I Total Protein Albumin Lipase 21 Procalcitonin TSH Free T4 Urine Color Urine Clarity Urine pH Ur Specific Lane Urine Protein Urine Ketones Urine Blood Urine Nitrite Urine Bilirubin Urine Urobilinogen Ur Leukocyte Esterase Urine RBC Urine WBC Ur Epithelial Cells Urine Crystals Urine Bacteria Urine Casts Urine Mucus Ur Culture Indicated? Urine Glucose COVID-19 Source Not Applicable SARS-CoV-2 (PCR) Negative Influenza Type A (PCR) Negative Influenza Type B (PCR) Negative RSV (PCR) Negative 03/29/22 12:07 WBC RBC Hgb Hct MCV MCH MCHC RDW Plt Count MPV Immature Gran % Neutrophils % Lymphocytes % Monocytes % Eosinophils % Basophils % Nucleated RBC % Absolute Neutrophils Absolute Lymphocytes Absolute Monocytes Absolute Eosinophils Absolute Basophils Sodium 142 Potassium 3.2 L Chloride 105 Carbon Dioxide 23.4 Anion Gap 13.6 H BUN 23 H Creatinine 1.2 Est GFR (CKD-EPI 2020) 67.95 Glucose 155 H Calcium 9.3 Magnesium 1.6 L Total Bilirubin 0.8 AST 51 H ALT 33 Alkaline Phosphatase 68 Troponin I < 50 Total Protein 7.5 Albumin 3.7 Lipase Procalcitonin TSH Free T4 Urine Color Urine Clarity Urine pH Ur Specific Lane Urine Protein Urine Ketones Urine Blood Urine Nitrite Urine Bilirubin Urine Urobilinogen Ur Leukocyte Esterase Urine RBC Urine WBC Ur Epithelial Cells Urine Crystals Urine Bacteria Urine Casts Urine Mucus Ur Culture Indicated? Urine Glucose COVID-19 Source SARS-CoV-2 (PCR) Influenza Type A (PCR) Influenza Type B (PCR) RSV (PCR) PFSH All Active Problems (Updated 03/30/22 @ 12:07 by Mily Thornton NP) Hypokalemia (Acute) DVT prophylaxis (Acute) Discharge planning issues (Acute) Altered mental status (Acute) Atrial fibrillation with rapid ventricular response (Acute) Vomiting (Acute) Alteration in thought content as evidenced by delusions (Acute) Cellulitis (Acute) Cellulitis of left ankle (Acute) Blister of left foot (Acute) Hyperglycemia (Acute) Vitreous floaters of right eye (Acute) BRENNEN (acute kidney injury) (Acute) Screening for colorectal cancer (Acute) Medical History (Updated 03/30/22 @ 12:07 by Mily Thornton NP) Afib Atrial enlargement, bilateral BCC (basal cell carcinoma of skin) Bipolar disorder Chronic constipation Chronic schizophrenia Diabetes mellitus, type 2 Diverticulosis Heel ulcer HTN (hypertension) Hypothyroidism Non-ST elevation [place] (NSTEMI) OAB (overactive bladder) Obesity RLS (restless legs syndrome) Urinary incontinence Surgical History Colonoscopy - MAC (01/25/16) 2010 Excision, Lipoma Hx of cholecystectomy Hydrocelectomy Tonsillectomy Family History Mother No problems noted. Father Heart disease Brother Alcohol abuse Social History Smoking/Tobacco Use Status: Current every day Tobacco Type: cigarettes Smoking risk assessment performed?: Yes Alcohol Intake: current Alcohol Intake frequency: holidays/special occasions only Alcohol type: beer and hard liquor Drug use: Current Sobriety Substance use type: does not use Do you feel safe at home: No (not comfortable) Do you feel safe in your relationship?: Yes Additional Social history: no pillows, no bathing supplies People are not doing a good job cleaning up, the kitchen draws are not clean clean.
[2022-03-30 14:05] VITALS: PULSE 92
--- NOTE | 2022-03-30 16:07 | CMDISCH_ITS ---
- If Service Date Differs Date of service: 03/30/22 Time of Service: 16:07 Care Management Discharge Reason for Hospitalization: atrial fibrillation with RVR Discharge Plan: Judd will be discharged home with a resumption of community supports through [facility] and home health services. He will follow up with his community providers and plan of care and transport with RCT coordinated by CM. He will be given enough medications to last until tomorrow when he can fill his prescriptions through [facility], his regular pharmacy. Patient/Family Education Needs: Review of discharge instructions, activity, medications, follow up plan, discuss Ask Me Three
== END 2022-03-30 14:54 | disposition home or self-care (01) ==
LOC: ER 15:40 → MS 17:04
PROVIDERS: Nurse Practitioner Family; Admitting Provider Internal Medicine; Emergency Provider Physician Assistant; PCP Family Medicine; Visit Provider Internal Medicine
DX: I48.91 Unspecified atrial fibrillation (principal); E87.6 Hypokalemia; Z20.822 Contact with and (suspected) exposure to COVID-19; F31.9 Bipolar disorder, unspecified; K59.09 Other constipation; E11.9 Type 2 diabetes mellitus without complications; I10 Essential (primary) hypertension; E03.9 Hypothyroidism, unspecified; K57.90 Diverticulosis of intestine, part unspecified, without perforation or abscess without bleeding; Z23 Encounter for immunization; F20.9 Schizophrenia, unspecified; J90 Pleural effusion, not elsewhere classified; R41.0 Disorientation, unspecified; Z79.84 Long term (current) use of oral hypoglycemic drugs; F41.9 Anxiety disorder, unspecified; W19.XXXA Unspecified fall, initial encounter; R53.1 Weakness; R61 Generalized hyperhidrosis; R11.11 Vomiting without nausea; F17.210 Nicotine dependence, cigarettes, uncomplicated; Z79.01 Long term (current) use of anticoagulants; Z79.899 Other long term (current) drug therapy
CPT/HCPCS: 36415; 71275; 80053; 83690; 84145; 87637; 90471; 90686; 93005; 96361; 96365; 99285; 70450; 71046; 81003; 81015; 83735; 84439; 84443; 84484; 85025; 93010; 99217; 99219; G0378; J3475; J3490

== ENCOUNTER 2022-03-31 14:24 | Observation (INO) | payer MEDICARE, MEDICAID, SELFPAY ==
[2022-03-31] VITALS (12 sets, daily range): BP systolic 108–124; BP diastolic 49–74; PULSE 75–102; RESP 15–25; TEMP 36.8–37; O2SAT 91–96
--- NOTE | 2022-03-31 15:18 | ED.GENADUL_ITS ---
Discharge Plan Disposition Patient Disposition: [facility] INPATIENT Condition: Stable Discharge Details Clinical Impression: Hypomagnesemia, Ambulatory dysfunction Admit Date/Time: 03/31/22 17:13 Admit Provider: Brice Hickman Attending Provider: Brice Hickman Primary Care Provider: Nisha Carrillo ED Provider: Clinton Gardner Medical Decision Making 61-year-old male who was discharged from the hospital yesterday. On clindamycin for question pneumonia, he states he has had a mild irritation of his left foot.. He uses a walker at home, had a hard time walking today and was found on the floor. He states he now feels improved, did not hurt himself, he wishes to be discharged to home. His lower extremity cellulitis appears to be healing. He is taking his antibiotics and has home medications and services. However, he is unable to ambulate due to weakness. He does appear to have chronic mental status changes due to his mental health disease and these do not appear to be acute to me at this time. Laboratories today reveal a white count of 10, hematocrit 45, platelets 176, magnesium is low at 1.6, remainder of chemistries are reassuring. Note of albumin 3.1. Due to his hypomagnesemia, ambulatory dysfunction and poor home situation, steven aburto will be admitted as observation status HPI General Date/Time Provider Initiated Documentation: 03/31/22 15:04 . Limitations to Documentation: no limitations . Information obtained by: patient . History of Present Illness 61 year old M presents to the emergency department with the chief complaint of Weakness at home, discharge from hospital yesterday., described as mild and similar to prior episodes, and is localized to the lower extremity. Patient started experiencing this minute(s) and it has been now resolved. No relieving factors improve symptom(s), No exacerbating factors reported . Patient notes weakness; denies fever/chills and headaches. Patient did receive the following treatments prior to arrival, other (Uses a walker at home) Related Data Home Medications Medication Instructions Recorded Confirmed atorvastatin 10 mg tablet (Lipitor) 10 mg PO QPM 01/23/16 03/31/22 melatonin 3 mg tablet,extended 3 mg PO HS PRN 01/23/16 03/31/22 release thyroid (pork) 90 mg tablet 90 mg PO QAM 01/23/16 03/31/22 ([place] Thyroid) apixaban 5 mg tablet (Eliquis) 5 mg PO BID #180 tabs 07/20/17 03/31/22 sennosides 8.6 mg tablet (senna) 8.6 mg PO BID PRN 1 day 07/28/17 03/31/22 albuterol sulfate 90 mcg/actuation 2 puff inhalation Q4H PRN 03/27/19 03/31/22 aerosol inhaler (Ventolin HFA) ropinirole 1 mg tablet 1 mg PO DIRECTED 03/27/19 03/31/22 docusate sodium 100 mg capsule 200 mg PO BID PRN 11/13/20 03/31/22 fluticasone propionate 50 1 spray intranasal Q12H 05/13/21 03/31/22 mcg/actuation nasal spray,suspension lisinopril 5 mg tablet 5 mg PO DAILY 07/31/21 03/31/22 furosemide 20 mg tablet 20 mg PO DAILY 08/10/21 03/31/22 Lactobacillus acidophilus 10 0 cell PO HS 09/15/21 03/31/22 billion cell capsule (Probiotic) metformin 1,000 mg tablet 1,000 mg PO BID 09/15/21 03/31/22 polyethylene glycol 3350 17 17 g PO BID PRN 09/15/21 03/31/22 gram/dose oral powder (Miralax) bisacodyl 5 mg tablet,delayed 10 mg PO DAILY 09/16/21 03/31/22 release divalproex 500 mg tablet,extended 2,000 mg PO HS 09/16/21 03/31/22 release 24 hr loratadine 10 mg tablet 10 mg PO DAILY PRN 09/16/21 03/31/22 clozapine 200 mg tablet 400 mg PO HS 11/14/21 03/31/22 lorazepam 0.5 mg tablet 0.5 mg PO .QH PRN 11/14/21 03/31/22 clozapine 100 mg tablet 100 mg PO QHS 03/29/22 03/31/22 clindamycin HCl 300 mg capsule 300 mg PO TID #15 caps 03/30/22 03/31/22 magnesium chloride 64 mg 64 mg PO DAILY #30 tabs 03/30/22 03/31/22 (magnesium chloride) tablet metoprolol succinate 25 mg 12.5 mg PO DAILY #30 tabs 03/30/22 03/31/22 tablet,extended release 24 hr potassium chloride 20 mEq 20 meq PO DAILY #30 tabs 03/30/22 03/31/22 tablet,extended release Previous Rx's Medication Instructions Recorded apixaban 5 mg tablet (Eliquis) 5 mg PO BID #180 tabs 07/20/17 clindamycin HCl 300 mg capsule 300 mg PO TID #15 caps 03/30/22 magnesium chloride 64 mg 64 mg PO DAILY #30 tabs 03/30/22 (magnesium chloride) tablet metoprolol succinate 25 mg 12.5 mg PO DAILY #30 tabs 03/30/22 tablet,extended release 24 hr potassium chloride 20 mEq 20 meq PO DAILY #30 tabs 03/30/22 tablet,extended release Allergies Allergy/AdvReac Type Severity Reaction Status Date / Time Penicillins AdvReac Intermediate black out Unverified 11/29/21 16:40 gabapentin AdvReac Mild Headache Unverified 11/29/21 16:40 niacin AdvReac Mild turn red Unverified 11/29/21 16:40 General Stated Complaint: AMS/LOC MARY: 2 Review of Systems Narrative: No fall or injury. Uses a walker at home. Taking his antibiotics with slow improvement of the left lower extremity cellulitis for which she was admitted and yesterday. 10 systems were reviewed and otherwise negative PFSH All Active Problems (Updated 03/31/22 @ 16:16 by Odalys Johns NP) Diabetes mellitus, type 2 (Acute) Chronic schizophrenia (Acute) Hypomagnesemia (Acute) Ambulatory dysfunction (Acute) Hypokalemia (Acute) Atrial fibrillation with rapid ventricular response (Acute) Alteration in thought content as evidenced by delusions (Acute) Cellulitis (Acute) Cellulitis of left ankle (Acute) Blister of left foot (Acute) Hyperglycemia (Acute) Vitreous floaters of right eye (Acute) BRENNEN (acute kidney injury) (Acute) Screening for colorectal cancer (Acute) Medical History Afib Atrial enlargement, bilateral BCC (basal cell carcinoma of skin) Bipolar disorder Chronic constipation Chronic schizophrenia Diabetes mellitus, type 2 Diverticulosis Heel ulcer HTN (hypertension) Hypothyroidism Non-ST elevation [place] (NSTEMI) OAB (overactive bladder) Obesity RLS (restless legs syndrome) Urinary incontinence Surgical History Colonoscopy - MAC (01/25/16) 2010 Excision, Lipoma Hx of cholecystectomy Hydrocelectomy Tonsillectomy Family History Mother No problems noted. Father Heart disease Brother Alcohol abuse Social History Smoking/Tobacco Use Status: Current every day Tobacco Type: cigarettes Smoking risk assessment performed?: Yes Alcohol Intake: current Alcohol Intake frequency: holidays/special occasions only Alcohol type: beer and hard liquor Drug use: Current Sobriety Substance use type: does not use Do you feel safe at home: No (not comfortable) Do you feel safe in your relationship?: Yes Additional Social history: no pillows, no bathing supplies People are not doing a good job cleaning up, the kitchen draws are not clean clean. Exam Narrative Exam Narrative: GEN: awake, alert, oriented 3. Pleasant, well groomed, interactive. HEAD: Normocephalic, atraumatic ENT: Mucous membranes moist, oropharynx unremarkable, External ear exam unremarkable EYES: PERRL, EOMI NECK: Full ROM, no BAM, no menigismus CHEST/RESP: Nontender, clear to auscultation bilateral, no wheeze/rhonchi/rales CARDIOVASCULAR: RRR, no murmur, rub sharri. 2+ Rad pulse bilateral ABDOMEN: Soft, nontender, no mass. +Bowel sounds EXT: Full ROM, the left third toe has a area of erythema on the mid dorsal surface, chronic venous stasis changes of both pretibial areas. No significant warmth or large areas of erythema appreciated. Neuro: Grossly normal neurologic exam, conversant, interactive. Psych: Speech fluent, thoughts congruent, affect normal Course Vital Signs Vital signs: Vital Signs Temperature 36.8 C 03/31/22 14:29 Pulse 99 H 03/31/22 14:29 Respiratory Rate 15 03/31/22 14:29 Blood Pressure 108/69 03/31/22 14:29 Pulse Oximetry 91 L 03/31/22 14:29 Temperature 36.8 C 03/31/22 14:29 Pulse 99 H 03/31/22 14:29 Respiratory Rate 15 03/31/22 14:29 Respiratory Effort 03/31/22 14:40 Respiratory Depth Normal 03/31/22 14:40 Respiratory Pattern Normal 03/31/22 14:40 Blood Pressure 108/69 03/31/22 14:29 Blood Pressure Position Sitting 03/31/22 14:29 Pulse Oximetry 91 L 03/31/22 14:29 Oxygen Delivery Method Room Air 03/31/22 14:29 Oxygen Flow Rate 0 03/31/22 14:29
[2022-03-31 15:32] LABS: Abs Immature Grans 0.06 10^3/uL (0.0-0.06); Absolute Basophil Count 0.03 10^3/uL (0.0-0.2); Absolute Eosinophil Count 0.05 10^3/uL (0.0-0.7); Absolute Lymphocyte Count 1.88 10^3/uL (1.2-3.4); Absolute Neutrophil Count 7.92 10^3/uL (1.2-6.7); Basophils % 0.3; Eosinophils % 0.5; HCT 45.8 % (40.0-50.0); Immature Grans % 0.5; Lymphocytes % 17.2; MCH 32.1 pg (27.0-33.0); MCHC 34.9 % (32.0-36.0); MCV 92 fL (80-95); MPV 12.2 fL (8.0-11.0); Monocytes % 9.1; Neutrophils % 72.4; Platelet Count 176 10^3/uL (130-400); RBC 4.98 10^6/uL (4.36-5.78); RDW 12.6 % (11.8-14.1); RDW-SD 42.3 fL; WBC 10.94 10^3/uL (4.4-10.8)
[2022-03-31 15:45] LABS: ALT 25 U/L (16-63); AST 56 U/L (15-37); Albumin 3.1 g/dL (3.4-5.0); Alkaline Phosphatase 58 U/L (46-116); Anion Gap 12.6 mmol/L (3-11); BUN 15 mg/dL (7-18); Bilirubin, Total 0.7 mg/dL (0.2-1.0); CO2 24.4 mmol/L (21.0-32.0); CREATININE 0.9 mg/dL (0.70-1.30); Calcium 9.3 mg/dL (8.5-10.1); Chloride 105 mmol/L (98-107); Estimated GFR 95.97 (mL/min/1.73m2); Glucose 126 mg/dL (74-106); Magnesium 1.6 mg/dL (1.8-2.4); Potassium 3.9 mmol/L (3.5-5.1); Sodium 142 mmol/L (136-145); Total Protein 7.2 g/dL (6.4-8.2); Troponin I < 50 ng/L (<or=60)
[2022-03-31] MEDS: MAGNESIUM SULFATE 2 GM/50 ML BAG IVPB (15:59)
--- NOTE | 2022-03-31 16:11 | HPE_ITS ---
Date of service: 03/31/22 Time of Service: 16:11 Assessment and Plan Assessment and plan (1) Hypomagnesemia: Status: Acute Assessment and plan: replete and follow. (2) Ambulatory dysfunction: Status: Acute Assessment and plan: PT consulted (3) Diabetes mellitus, type 2: Status: Acute Assessment and plan: diabetic diet blood sugar checks and sliding scale as needed (4) Chronic schizophrenia: Status: Acute Assessment and plan: stable, continue home medication (5) Atrial fibrillation with rapid ventricular response: Status: Acute Assessment and plan: rate controlled, anticoagulated on apixaban discussed with DR Hickman History of Present Illness History of Present Illness Chief Complaint: weakness Narrative: presents to the ED for evaluation of weakness. on clindaymycin for ? asp pneumonia and to cover for a celulitis found to by hypomagnesemic, started on IV replacement, unable to be safely re- ambulated will refer to observation with PT evaluation and replete magnesium PFSH All Active Problems (Updated 03/31/22 @ 16:16 by Odalys Johns NP) Diabetes mellitus, type 2 (Acute) Chronic schizophrenia (Acute) Hypomagnesemia (Acute) Ambulatory dysfunction (Acute) Hypokalemia (Acute) Atrial fibrillation with rapid ventricular response (Acute) Alteration in thought content as evidenced by delusions (Acute) Cellulitis (Acute) Cellulitis of left ankle (Acute) Blister of left foot (Acute) Hyperglycemia (Acute) Vitreous floaters of right eye (Acute) BRENNEN (acute kidney injury) (Acute) Screening for colorectal cancer (Acute) Medical History Afib Atrial enlargement, bilateral BCC (basal cell carcinoma of skin) Bipolar disorder Chronic constipation Chronic schizophrenia Diabetes mellitus, type 2 Diverticulosis Heel ulcer HTN (hypertension) Hypothyroidism Non-ST elevation [place] (NSTEMI) OAB (overactive bladder) Obesity RLS (restless legs syndrome) Urinary incontinence Surgical History Colonoscopy - [facility] (01/25/16) 2011 Excision, Lipoma Hx of cholecystectomy Hydrocelectomy Tonsillectomy Family History Mother No problems noted. Father Heart disease Brother Alcohol abuse Social History Smoking/Tobacco Use Status: Current every day Tobacco Type: cigarettes Smoking risk assessment performed?: Yes Alcohol Intake: current Alcohol Intake frequency: holidays/special occasions only Alcohol type: beer and hard liquor Drug use: Current Sobriety Substance use type: does not use Do you feel safe at home: No (not comfortable) Do you feel safe in your relationship?: Yes Additional Social history: no pillows, no bathing supplies People are not doing a good job cleaning up, the kitchen draws are not clean cl trevin. Meds Allergies and Home Medications Allergies Allergy/AdvReac Type Severity Reaction Status Date / Time Penicillins AdvReac Intermediate black out Unverified 11/29/21 16:40 gabapentin AdvReac Mild Headache Unverified 11/29/21 16:40 niacin AdvReac Mild turn red Unverified 11/29/21 16:40 Home Medications Medication Instructions Recorded Confirmed Type atorvastatin 10 mg tablet (Lipitor) 10 mg PO QPM 01/23/16 03/31/22 History melatonin 3 mg tablet,extended 3 mg PO HS PRN 01/23/16 03/31/22 History release thyroid (pork) 90 mg tablet 90 mg PO QAM 01/23/16 03/31/22 History ([place] Thyroid) apixaban 5 mg tablet (Eliquis) 5 mg PO BID #180 tabs 07/20/17 03/31/22 Rx sennosides 8.6 mg tablet (senna) 8.6 mg PO BID PRN 1 day 07/28/17 03/31/22 Histo ry albuterol sulfate 90 mcg/actuation 2 puff inhalation Q4H PRN 03/27/19 03/31/22 History aerosol inhaler (Ventolin HFA) ropinirole 1 mg tablet 1 mg PO DIRECTED 03/27/19 03/31/22 History docusate sodium 100 mg capsule 200 mg PO BID PRN 11/13/20 03/31/22 History fluticasone propionate 50 1 spray intranasal Q12H 05/13/21 03/31/22 History mcg/actuation nasal spray,suspension lisinopril 5 mg tablet 5 mg PO DAILY 07/31/21 03/31/22 History furosemide 20 mg tablet 20 mg PO DAILY 08/10/21 03/31/22 History Lactobacillus acidophilus 10 0 cell PO HS 04/10/22 10/24/22 History billion cell capsule (Probiotic) metformin 1,000 mg tablet 1,000 mg PO BID 09/15/21 03/31/22 History polyethylene glycol 3350 17 17 g PO BID PRN 09/15/21 03/31/22 History gram/dose oral powder (Miralax) bisacodyl 5 mg tablet,delayed 10 mg PO DAILY 09/16/21 03/31/22 History release divalproex 500 mg tablet,extended 2,000 mg PO HS 09/16/21 03/31/22 History release 24 hr loratadine 10 mg tablet 10 mg PO DAILY PRN 09/16/21 03/31/22 History clozapine 200 mg tablet 400 mg PO HS 11/14/21 03/31/22 History lorazepam 0.5 mg tablet 0.5 mg PO .QH PRN 11/14/21 03/31/22 History clozapine 100 mg tablet 100 mg PO QHS 03/29/22 03/31/22 History clindamycin HCl 300 mg capsule 300 mg PO TID #15 caps 03/30/22 03/31/22 Rx magnesium chloride 64 mg 64 mg PO DAILY #30 tabs 03/30/22 03/31/22 Rx (magnesium chloride) tablet metoprolol succinate 25 mg 12.5 mg PO DAILY #30 tabs 03/30/22 03/31/22 Rx tablet,extended release 24 hr potassium chloride 20 mEq 20 meq PO DAILY #30 tabs 03/30/22 03/31/22 Rx tablet,extended release Exam Const General: cooperative and no acute distress Orientation: alert, awake and oriented x3 [facility] Head: normal to inspection and normocephalic Face and sinus: normal facial exam Eyes General: appearance normal, both eyes and all related structures Pupils: PERRL EOM: EOM intact bilaterally Neck Neck: normal visual inspection Chest Chest: normal inspection of the chest and no tenderness Resp Effort & Inspection: normal respiratory effort and able to speak in complete sentences Auscultation: clear to auscultation bilaterally Cardio Rhythm: abnormal rhythm irregularly irregular GI Inspection: normal to inspection and obesity Palpation: soft Back/Spine/Pelvis Thoracic/Lumbar Spine: thoracic and lumbar spine normal to inspection Skin General skin exam: no rashes or lesions noted Neuro General: patient alert, patient awake and patient oriented x3 Motor: muscle tone normal throughout Extrem General: normal to inspection, full ROM, capillary refill normal, no calf tenderness bilaterally and no edema Psych Appearance: grossly normal Mental Status: mental status grossly normal Speech and Movement: speech and movement normal Mood: congruent mood Affect: normal affect Results Labs Result diagrams: 03/31/22 15:00 04/01/22 11:40 Labs: Laboratory Results - last 24 hr 03/31/22 03/31/22 15:00 15:00 WBC 10.94 H RBC 4.98 Hgb 16.0 Hct 45.8 MCV 92 MCH 32.1 MCHC 34.9 RDW 12.6 Plt Count 176 MPV 12.2 H Immature Gran % 0.5 Neutrophils % 72.4 Lymphocytes % 17.2 Monocytes % 9.1 Eosinophils % 0.5 Basophils % 0.3 Nucleated RBC % 0.0 Absolute Neutrophils 7.92 H Absolute Lymphocytes 1.88 Absolute Monocytes 1.00 H Absolute Eosinophils 0.05 Absolute Basophils 0.03 Sodium 142 Potassium 3.9 Chloride 105 Carbon Dioxide 24.4 Anion Gap 12.6 H BUN 15 Creatinine 0.9 Est GFR (CKD-EPI 2020) 95.97 Glucose 126 H Calcium 9.3 Magnesium 1.6 L Total Bilirubin 0.7 AST 56 H ALT 25 Alkaline Phosphatase 58 Troponin I < 50 Total Protein 7.2 Albumin 3.1 L Last Vital Signs Temp 36.8 C 03/31/22 14:29 Pulse 99 H 03/31/22 14:29 Resp 15 03/31/22 14:29 BP 108/69 03/31/22 14:29 Pulse Ox 91 L 03/31/22 14:29
[2022-03-31 17:14] LABS: Source Nasal/Nares
[2022-03-31 17:47] LABS: COVID-19 PCR Negative (Negative)
[2022-03-31] MEDS: Apixaban 5 MG TAB PO (21:40)
[2022-03-31] MEDS: Lactobacillus Acidophilus CAP 1 CAP PO (21:40)
[2022-03-31] MEDS: rOPINIRole 1 MG TAB PO (21:41)
[2022-03-31] MEDS: Divalproex Sodium 500 MG TAB.ER.24H 2000 MG PO (21:41)
[2022-03-31] MEDS: Clindamycin 300 MG CAP PO (21:42)
[2022-03-31] MEDS: Atorvastatin 10 MG TAB PO (21:42)
[2022-04-01 06:13] VITALS: BP 147/98; PULSE 68; RESP 18; TEMP 36.7; O2SAT 98
[2022-04-01 07:11] VITALS: BP 113/76; PULSE 104; RESP 18; TEMP 36.4; O2SAT 92
[2022-04-01] MEDS: Acetaminophen 325 MG TAB 650 MG PO (08:37)
[2022-04-01] MEDS: Lisinopril 5 MG TAB PO (08:38)
[2022-04-01] MEDS: metFORMIN 500 MG TAB 1000 MG PO (08:38)
[2022-04-01] MEDS: Furosemide 20 MG TAB PO (08:38)
[2022-04-01] MEDS: Metoprolol CR 25 MG TABCR 12.5 MG PO (08:39)
[2022-04-01] MEDS: Magnesium Chloride 64 MG TABCR PO (08:39)
[2022-04-01] MEDS: Clindamycin 300 MG CAP PO ×2 (08:39→14:00)
[2022-04-01] MEDS: Potassium Chloride 20 MEQ TABCR PO (08:39)
[2022-04-01] MEDS: Apixaban 5 MG TAB PO (08:39)
--- NOTE | 2022-04-01 09:27 | INITIAL_ITS ---
- If Service Date Differs Date of service: 04/01/22 Time of Service: 09:27 Care Management Initial Assess REASON FOR HOSPITALIZATION:: Hypomagnesemia, Ambulatory dysfunction, Atrial fibrillation with rapid ventricular response PAST MEDICAL HISTORY/PAST SURGICAL HISTORY:: All Active Problems (Updated 03/31/22 @ 16:16 by Odalys Johns NP). Diabetes mellitus, type 2 (Acute). Chronic schizophrenia (Acute). Hypomagnesemia (Acute). Ambulatory dysfunction (Acute). Hypokalemia (Acute). Atrial fibrillation with rapid ventricular response (Acute). Alteration in thought content as evidenced by delusions (Acute). Cellulitis (Acute). Cellulitis of left ankle (Acute). Blister of left foot (Acute). Hyperglycemia (Acute). Vitreous floaters of right eye (Acute). BRENNEN (acute kidney injury) (Acute). Screening for colorectal cancer (Acute). Medical History . Afib. Atrial enlargement, bilateral. BCC (basal cell carcinoma of skin). Bipolar disorder. Chronic constipation. Chronic schizophrenia. Diabetes mellitus, type 2. Diverticulosis. Heel ulcer. HTN (hypertension). Hypothyroidism. Non-ST elevation [place] (NSTEMI). OAB (overactive bladder). Obesity. RLS (restless legs syndrome). Urinary incontinence. Surgical History . Colonoscopy - [facility] (01/25/16). 2010. Excision, Lipoma. Hx of cholecystectomy. Hydrocelectomy. Tonsillectomy PREVIOUS FUNCTIONAL STATUS/SOCIAL/FAMILY SUPPORTS:: Judd lives alone in an apartment in [facility]. He is a [employer] client, and has twice daily medication drops through [employer] and receives meals on Wheels, but is independent with his ADL's. Judd uses [employer] private vehicle for transportation. CURRENT FUNCTIONAL STATUS:: Judd was reclining in his chair when CM met with him. He is awake, alert and able to engage in conversation. Patient shares that he receives MOW and has plenty of fruit at home. He shares with CM that he is eating well, however his hydration could improve. CM discussed Judd's nutritional needs with Ирина from [employer] CM, she will offer support in the community. ADVANCE DIRECTIVES:: On file. [facility] [place] [facility] Has patient been provided with info about the portal/API?: Yes Did the patient sign up for the portal?: No CODE STATUS:: Full Code INSURANCE COVERAGE / FINANCIAL ISSUES:: Medicare. Medicaid CURRENT HOME/COMMUNITY SERVICES/EQUIPMENT:: Judd is a [employer] client, receives help with medication management and compliance. Twice daily medication drops. Uses a Walker: PRN. [facility] transportation. Receives [employer] PRIMARY CARE PHYSICIAN:: Nisha Carrillo POTENTIAL DISCHARGE NEEDS:: Recommend [employer] Planning at the community level. Follow up with PCP and resumption of community support services. [facility] PT[facility]. [facility] transportation PATIENT/FAMILY EDUCATION NEEDS:: Review discharge instructions, limitations, medications and plan to follow up with community providers. Discuss ask me three. TRANSPORTATION:: Via [facility] private vehicle. PLAN:: Anticipate, Judd will discharge home this afternoon via [facility] private vehicle. Judd will resume community support services through [employer] and New [facility] PT/OT. Judd will follow up with his community providers and discharge plan of care as prescribed. 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
--- NOTE | 2022-04-01 11:29 | PT.INIE ---
Date of service: 04/01/22 Time of Service: 11:29 PT Notes Visit Reasons: Hypomagnesemia,Ambulatory Dysfunction Physical Therapy Inpatient Initial Evaluation Date: 06/01/2022 Referring Doctor: Odalys Johns MD PT Orders: PT CONSULT: Limited ability Precautions: Fall. Standard. Activity as tolerated.? Patient Profile/Admitting Diagnosis:? Judd is a 61-year-old male with chronic schizophrenia who was brought to the ED on due to diaphoresis, confusion, and weakness.? He is diagnosed with hypomagnesemia, ambulatory dysfunction, DM, chronic, and AF with RVR. PMHX: All Active Problems?(Updated 03/31/22 @ 16:16 by Odalys Johns, [employer]PER[employer]CEIV[employer]ESSING) Diabetes mellitus, type 2 (Acute) Chronic schizophrenia (Acute) Hypomagnesemia (Acute) Ambulatory dysfunction (Acute) Hypokalemia (Acute) Atrial fibrillation with rapid ventricular response (Acute) Alteration in thought content as evidenced by delusions (Acute) Cellulitis (Acute) Cellulitis of left ankle (Acute) Blister of left foot (Acute) Hyperglycemia (Acute) Vitreous floaters of right eye (Acute) BRENNEN (acute kidney injury) (Acute) Screening for colorectal cancer (Acute) Medical History? Afib Atrial enlargement, bilateral BCC (basal cell carcinoma of skin) Bipolar disorder Chronic constipation Chronic schizophrenia Diabetes mellitus, type 2 Diverticulosis Heel ulcer HTN (hypertension) Hypothyroidism Non-ST elevation [place] (NSTEMI) OAB (overactive bladder) Obesity RLS (restless legs syndrome) Urinary incontinence Surgical History? Colonoscopy - [facility] (01/25/16) 2011Excision Lipoma Hx of cholecystectomy Hydrocelectomy Tonsillectomy Social History/Home Situation: Lives alone in the basement of an apartment building with 2 stone steps to enter.? Ambulatory in the community using a single-point cane. Equipment Owned/DME: Single-point cane Subjective: Agreeable to PT consult. Reports fatigue after PT session.? Denies headache, chest pain, and lightheadedness throughout session. States that hea gave a way his walker to a neighbor who needs it more than he does. Objective: General Observation: Mental Status: Alert and oriented as to person and place. Able to follow single step commands. Pain: Denies Vital Signs: WNL as closely monitored by nursing staff ROM: Right Upper Extremity: ? Shoulder Flexion WFL. Shoulder abduction WFL. Shoulder ER/IR WFL. Elbow flexion WFL. Forearm pronation/supination WFL. Wrist flexion WFL. Opening and closing of hand WFL. Left Upper Extremity:? Shoulder Flexion WFL. Shoulder abduction WFL. Shoulder ER/IR WFL. Elbow flexion WFL. Forearm pronation/supination WFL. Wrist flexion WFL. Opening and closing of hand WFL. Right Lower Extremity: Hip flexion WFL. Hip abduction WFL. Hip ER/IR WFL. Knee flexion WFL. Knee extension -10 degrees. Ankle dorsiflexion/eversion to neutral only. Ankle plantarflexion/inversion WFL. Left Lower Extremity: Hip flexion WFL.? Hip abduction WFL. Hip ER/IR WFL. Knee flexion WFL. Knee extension -10 degrees. Ankle dorsiflexion to neutral only. Ankle plantarflexion WFL. Strength: Right Upper Extremity: Shoulder flexors 4-/5. Shoulder abductors 4-/5. Shoulder ER 4-/5. Shoulder IR 4-/5. Forearm pronators 4-/5. Forearm supinators 4-/5. Elbow flexors 4-/5. Elbow extensors 4-/5. Slide Developer weak but functional. Left Upper Extremity: Shoulder flexors 4-/5. Shoulder abductors 4-/5. Shoulder ER 4-/5. Shoulder IR 4-/5. Forearm pronators 4-/5. Forearm supinators 4-/5. Elbow flexors 4-/5. Elbow extensors 4-/5. Slide Developer weak but functional. Right Lower Extremity: Hip flexors 4-/5. Hip abductors 3+/5. Hip external rotators 3+/5. Hip internal rotators 3+/5. Knee flexors 3-/5. Knee extensors 3-/5. Ankle dorsiflexors/evertors 3-/5. Ankle plantarflexors/invertors 3-/5. Left Lower Extremity: Hip flexors 4-/5. Hip abductors 3+/5. Hip external rotators 3+/5. Hip internal rotators 3+/5. Knee flexors 3-/5. Knee extensors 3-/5. Ankle dorsiflexors/evertors 3-/5. Ankle plantarflexors/invertors 3-/5. Bed Mobility/Transfers: Sit to stand supervision Stand to sit supervision Bed to chair supervision Gait: 15 feet + 100 feet + 100 feet using newly provided FWW with step-through gait pattern with stand by assist. Decreased emery. Reported fatigue after the long walk but recovered with rest. Balance: Static Sitting: Normal Dynamic Sitting: Normal Static Standing: Fair Dynamic Standing: Fair Special Tests: Mobility Limitations Standardized Measure [facility]-PAC 6 clicks Basic Mobility Inpatient Short Form: Raw Score: 24 ? CMS Score: 0% deficit ? ? Informed Consent/Education:? Patient was instructed in purpose of PT consult and plan of care. Agreeable to proceed with established PT POC to achieve personal goals. Assessment: [place] requires the use of front wheeled walker to maximize independence and reduce fall risk at home. Patient presents with clinical signs and symptoms consistent with current/admitting diagnoses that have resulted to mobility limitations, gait instability, generalized weakness, and overall ADL decline as demonstrated by the following impairment level findings: 1.? Decreased strength to BUE/LE? major muscle groups 2.? Impaired standing balance 3.? Impaired activity tolerance 4.? Shortness of breath Impairments are contributing to the following functional limitations: 1.? Difficulty with ambulation without assistive device 2.? Increased completion time for mobility ADL performance 3.? Increased risk for falls 4.? Difficulty with managing steps alone safely Patient is assessed as a 55787 moderate complexity based on the following: History: 60-year-old male with past medical history as indicated above Examination: Demonstrable impairment in strength, balance, and mobility level with underlying impairments and functional limitations as exhibited above as well as deficit score of 47 % utilizing the [facility] Mobility Inpatient Short Form Presentation: Evolving Decision Makin moderate complexity Goals: Goals X1 week 1. Supine-Sit independent 2. Sit-Supine independent 3. Sit-Stand independent 4. Stand-Sit independent with SPC 5. Bed-Chair independent with SPC 6. Chair-Bed independent with SPC 7.? Independent with gait on level surface with use of SPC for at least 50 feet without report of pain nor dyspnea 8.? Independent with stair negotiation while holding onto 1? rails for at least 3 steps without report of pain nor dyspnea 9. Good static and dynamic standing balance/tolerance Plan of Care/Treatment Plan: 1-2x/day, 7 days/week x 1 week. Plan of care has been reviewed with the FLORAL ASSISTANT providing the service under Physical Therapy direction. Initiate Physical Therapy intervention for pain management as needed, strengthening, bed mobility, transfers, gait, stairs, balance training, and use of assistive device. DISCHARGE RECOMMENDATIONS: [] ? Home with no services [] [X] ? Home with services when medically cleared by hospitalist.? Patient will benefit from home health PT services in order to progress mobility level using least restrictive assistive ambulatory device, assess home safety, identify additional equipment needs, and establish a functional maintenance program that will increase ability of patient to remain at home. [] ? Home with outpatient PT [] [] ? SNF for continued rehabilitation [] [] ? Assisted Care [] [] ? SNF versus LTC based on ability to participate and progress [] TREATMENT CODE/TIME: 87364 x 20 minutes, 83010 x 12 minutes beginning at 11:29 AM. Thank you for the opportunity to participate in the care of this patient. Karli Burrows PT, DPT, CLT [facility] [place], [place]
[2022-04-01 12:13] LABS: Anion Gap 9.4 mmol/L (3-11); BUN 19 mg/dL (7-18); CO2 27.6 mmol/L (21.0-32.0); CREATININE 0.9 mg/dL (0.70-1.30); Calcium 9.5 mg/dL (8.5-10.1); Chloride 101 mmol/L (98-107); Estimated GFR 95.97 (mL/min/1.73m2); Glucose 142 mg/dL (74-106); Magnesium 1.8 mg/dL (1.8-2.4); Potassium 3.6 mmol/L (3.5-5.1); Sodium 138 mmol/L (136-145)
[2022-04-01 12:58] LABS: Bilirubin Negative (Negative); Blood Negative (Negative); Clarity Clear (Clear); Glucose Negative (Negative); Ketones 15 mg/dL (Negative); Leukocyte Esterase Negative (Negative); Nitrite Negative (Negative); Specific Gravity 1.025 (1.005-1.025); pH 6.5 (5-8)
--- NOTE | 2022-04-01 13:47 | W.PM.DS.N ---
Date of service: 04/01/22 Time of Service: 13:47 DS: Diagnosis Discharge Diagnosis (1) Hypomagnesemia: Status: Acute Asessment and Plan: repleted, continue magnesium supplementation (2) Ambulatory dysfunction: Status: Acute Asessment and Plan: reambulated without difficulty (3) Diabetes mellitus, type 2: Status: Acute Asessment and Plan: continue home medication (4) Chronic schizophrenia: Status: Acute Asessment and Plan: stable, continue home medication (5) Atrial fibrillation with rapid ventricular response: Status: Acute Asessment and Plan: rate controlled, anticoagulated on eliquis Discharge Plan Disposition Patient Disposition: HOME W/HOME HEALTH SERVICE Condition: Stable Discharge Details Reason For Visit: Hypomagnesemia,Ambulatory Dysfunction Admit Date/Time: 03/31/22 17:13 Admit Provider: Brice Hickman Attending Provider: Brice Hickman [facility] Course: This is a 61 year old male patient with schizophrenia who presented to the ED with c/o weakness and decline at home. He was evaluated in the ED and essentially his work up unremarkable. His magnesium at 1.6 was repleted with 2 gm IV in the ED. He refused to ambulate so it was thought that he couldn't be safely discharged to home so observation stay requested. On arrival to the floor him ambulated freely. He remained medically stable, was eating and drinking. PT evaluated him in the am and recommended home PT/OT. he continue on clindaymycin which was started previously for question of asp pneumonia and an early cellulitis. Both issue seem to be responding well as he has not evidence of cellulitis or respiratory symptoms on exam. He is oxgyenating in the 90's on room air. He is stable and ready for discharge to home. no medication changes recommended. 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 discharge discussed with DR Hickman Home Meds and New Rx's Prescriptions: Continued lisinopril 5 mg tablet 5 mg PO DAILY Eliquis 5 MG tablet 5 mg PO BID Qty: 180 12RF sennosides [senna] 8.6 MG tablet 8.6 mg PO BID PRN1 Days Rx Instructions: prn divalproex 500 mg tablet extended release 24 hr 2,000 mg PO HS Rx Instructions: takes at 1600 loratadine 10 mg tablet 10 mg PO DAILY PRN bisacodyl 5 mg tablet,delayed release (DR/EC) 10 mg PO DAILY clozapine 200 mg tablet 400 mg PO HS Rx Instructions: With 100 mg tab for total of 500 mg po qhs lorazepam 0.5 mg tablet 0.5 mg PO .QH PRN atorvastatin [Lipitor] 10 MG tablet 10 mg PO QPM thyroid (pork) [[place] Thyroid] 90 MG tablet 90 mg PO QAM melatonin 3 MG tablet extended release 3 mg PO HS PRN ropinirole 1 mg Tablet 1 mg PO DIRECTED Rx Instructions: DAILY at 1600 albuterol sulfate [Ventolin HFA] 90 mcg/actuation Hfa Aerosol Inhaler 2 puff INHALATION Q4H PRN polyethylene glycol 3350 [Miralax] 17 gram/dose powder 17 g PO BID PRN Label Comments: 17 gram by mouth once a day as needed Probiotic 10 billion cell capsule 0 cell PO HS Label Comments: Take 1 capsule by mouth at bedtime Rx Instructions: 1 CAPSULE PO QHS metformin 1,000 mg tablet 1,000 mg PO BID docusate sodium 100 mg capsule 200 mg PO BID PRN fluticasone propionate 50 mcg/actuation [place],Suspension 1 spray INTRANASAL Q12H furosemide 20 mg tablet 20 mg PO DAILY clozapine 100 mg tablet 100 mg PO QHS Rx Instructions: Take in combination with two 200 mg tabs for total dose of 500 mg po qhs metoprolol succinate 25 mg Tablet Extended Release 24 Hr 12.5 mg PO DAILY Qty: 30 0RF clindamycin HCl 300 mg capsule 300 mg PO TID Qty: 15 0RF magnesium chloride 64 mg magnesium tablet 64 mg PO DAILY Qty: 30 0RF potassium chloride 20 mEq tablet extended release 20 meq PO DAILY Qty: 30 0RF Discharge Instructions Instructions: Hypomagnesemia (DC) Additional Instructions: resume usual medication. please discuss half-way planning with your outpatient team Referrals: Nisha Carrillo MD [Primary Care Provider] - Activity:: Activity as Tolerated Equipment/Supplies:: No Equipment Needed Diet:: As Tolerated Discharge Orders Discharge Orders: Discharge Order (Routine); Ordered 04/01/22 Ordered By: Odalys Johns DS: Summary Time Spent with Patient providing and/or coordinating discharge services: Less than 30 minutes Status at Discharge Functional status at discharge: independent ambulation Overall status at discharge: patient is back to baseline Mental Status: mental status grossly normal Speech and Movement: speech and movement normal Mood: congruent mood Affect: normal affect Exam Const General: cooperative and no acute distress Orientation: alert, awake and oriented x3 HENMT Head: normal to inspection Face and sinus: normal facial exam Eyes General: appearance normal, both eyes and all related structures Pupils: PERRL EOM: EOM intact bilaterally Neck Neck: normal visual inspection and No submandibular swelling Lymphatic: no lymphadenopathy noted Chest Chest: normal inspection of the chest and no tenderness Resp Effort & Inspection: normal respiratory effort and able to speak in complete sentences Auscultation: clear to auscultation bilaterally Cardio Rhythm: abnormal rhythm irregularly irregular GI Inspection: normal to inspection and obesity Palpation: soft Back/Spine/Pelvis Thoracic/Lumbar Spine: thoracic and lumbar spine normal to inspection Skin General skin exam: no rashes or lesions noted Neuro General: patient alert, patient awake and patient oriented x3 Motor: muscle tone normal throughout Extrem General: normal to inspection, full ROM, capillary refill normal, no calf tenderness bilaterally and no edema Psych Appearance: grossly normal Mental Status: mental status grossly normal Speech and Movement: speech and movement normal Mood: congruent mood Affect: normal affect DS: Data Vitals/I&O Vitals and I&O: Vital Signs Temperature 36.4 C L 04/01/22 07:11 Temperature Source Tympanic 04/01/22 07:11 Pulse 104 H 04/01/22 07:11 Pulse Rhythm Irregular 04/01/22 07:55 Pulse 87 03/31/22 16:16 Respiratory Rate 18 04/01/22 07:11 Respiratory Effort 04/01/22 07:55 Respiratory Depth Normal 04/01/22 04:24 Respiratory Pattern Normal 04/01/22 07:55 Blood Pressure 113/76 04/01/22 07:11 Blood Pressure Mean 81 03/31/22 16:16 Blood Pressure Position Sitting 03/31/22 14:29 Pulse Oximetry 92 04/01/22 07:11 Oxygen Delivery Method Room Air 04/01/22 07:11 Oxygen Flow Rate 0 04/01/22 07:11 Pain Level 0 04/01/22 07:11 Intake & Output 03/31/22 04/01/22 04/01/22 23:59 11:59 23:59 Intake Total 500 / 500 Output Total 150 / 150 325 / 775 450 / 775 Balance 350 / 350 -325 / -775 -450 / -775 Weight 90.718 kg Intake: Oral 500 / 500 Output: Urine 150 / 150 325 / 775 450 / 775 Other: Urine Color Yellow Dark Tutu Dark Tutu Brown Urine Appearance Clear Sediment Clear Urine Odor Strong Strong Comment patient was heavily incont of urine upon arrival to [facility] unit strong odor patient ambulated to bathroom and unable to void. Bladder scan obtained at 474 ml. Straight cath completed for 450mL dark tutu urine. Specimen sent to lab per order. Voiding Methods Urinal Bedside Commode Self-Catheterization Data Completed and Pending Labs on day of discharge: Labs from last 24 hours 04/01/22 04/01/22 03/31/22 12:25 11:40 17:05 WBC RBC Hgb Hct MCV MCH MCHC RDW Plt Count MPV Immature Gran % Neutrophils % Lymphocytes % Monocytes % Eosinophils % Basophils % Nucleated RBC % Absolute Neutrophils Absolute Lymphocytes Absolute Monocytes Absolute Eosinophils Absolute Basophils Sodium 138 Potassium 3.6 Chloride 101 Carbon Dioxide 27.6 Anion Gap 9.4 BUN 19 H Creatinine 0.9 Est GFR (CKD-EPI 2020) 95.97 Glucose 142 H Calcium 9.5 Magnesium 1.8 Total Bilirubin AST ALT Alkaline Phosphatase Troponin I Total Protein Albumin Urine Color Yellow Urine Clarity Clear Urine pH 6.5 Ur Specific [place] 1.025 Urine Protein Negative Urine Ketones 15 H Urine Blood Negative Urine Nitrite Negative Urine Bilirubin Negative Urine Urobilinogen 1.0 H Ur Leukocyte Esterase Negative Urine Glucose Negative COVID-19 Source Nasal/Nares SARS-CoV-2 (PCR) Negative 03/31/22 03/31/22 15:00 15:00 WBC 10.94 H RBC 4.98 Hgb 16.0 Hct 45.8 MCV 92 MCH 32.1 MCHC 34.9 RDW 12.6 Plt Count 176 MPV 12.2 H Immature Gran % 0.5 Neutrophils % 72.4 Lymphocytes % 17.2 Monocytes % 9.1 Eosinophils % 0.5 Basophils % 0.3 Nucleated RBC % 0.0 Absolute Neutrophils 7.92 H Absolute Lymphocytes 1.88 Absolute Monocytes 1.00 H Absolute Eosinophils 0.05 Absolute Basophils 0.03 Sodium 142 Potassium 3.9 Chloride 105 Carbon Dioxide 24.4 Anion Gap 12.6 H BUN 15 Creatinine 0.9 Est GFR (CKD-EPI 2020) 95.97 Glucose 126 H Calcium 9.3 Magnesium 1.6 L Total Bilirubin 0.7 AST 56 H ALT 25 Alkaline Phosphatase 58 Troponin I < 50 Total Protein 7.2 Albumin 3.1 L Urine Color Urine Clarity Urine pH Ur Specific [place] Urine Protein Urine Ketones Urine Blood Urine Nitrite Urine Bilirubin Urine Urobilinogen Ur Leukocyte Esterase Urine Glucose COVID-19 Source SARS-CoV-2 (PCR) PFSH All Active Problems (Updated 03/31/22 @ 16:16 by Odalys Johns NP) Diabetes mellitus, type 2 (Acute) Chronic schizophrenia (Acute) Hypomagnesemia (Acute) Ambulatory dysfunction (Acute) Hypokalemia (Acute) Atrial fibrillation with rapid ventricular response (Acute) Alteration in thought content as evidenced by delusions (Acute) Cellulitis (Acute) Cellulitis of left ankle (Acute) Blister of left foot (Acute) Hyperglycemia (Acute) Vitreous floaters of right eye (Acute) BRENNEN (acute kidney injury) (Acute) Screening for colorectal cancer (Acute) Medical History Afib Atrial enlargement, bilateral BCC (basal cell carcinoma of skin) Bipolar disorder Chronic constipation Chronic schizophrenia Diabetes mellitus, type 2 Diverticulosis Heel ulcer HTN (hypertension) Hypothyroidism Non-ST elevation [place] (NSTEMI) OAB (overactive bladder) Obesity RLS (restless legs syndrome) Urinary incontinence Surgical History Colonoscopy - MAC (01/25/16) 2010 Excision, Lipoma Hx of cholecystectomy Hydrocelectomy Tonsillectomy Family History Mother No problems noted. Father Heart disease Brother Alcohol abuse Social History Smoking/Tobacco Use Status: Current every day Tobacco Type: cigarettes Smoking risk assessment performed?: Yes Alcohol Intake: current Alcohol Intake frequency: holidays/special occasions only Alcohol type: beer and hard liquor Drug use: Current Sobriety Substance use type: does not use Do you feel safe at home: No (not comfortable) Do you feel safe in your relationship?: Yes Additional Social history: no pillows, no bathing supplies People are not doing a good job cleaning up, the kitchen draws are not clean clean.
--- NOTE | 2022-04-01 14:11 | PDOC.HHF2F ---
Home Health Certification Home Health Certification: 1. Encounter Date and Reason I certify that Judd Hathaway was seen by Odalys Johns on 04/01/22 and that I had a [id number] encounter with this patient that meets the physician face to face encounter requirements. 2. Clinical Findings Supporting Skilled Need and Homebound Status I certify that home health services are medically necessary, include either intermittent mcc and/or physical/speech therapy, and that this patient is homebound in that absences from the home require considerable and taxing effort and are infrequent or of short duration, or are attributable to the need to receive medical care. [X] (a) Attached documentation from encounter provides clinical findings supporting skilled need and homebound status (including what assistance patient requires to leave the home). The encounter with the patient was in whole, or in part, for the following medical condition, which is the primary reason for home health care: Hypomagnesemia,Ambulatory Dysfunction Physical and Occupational Therapy: Patient will benefit from home health PT services in order to progress mobility level using least restrictive assistive ambulatory device, assess home safety, identify additional equipment needs, and establish a functional maintenance program that will increase ability of patient to remain at home. Homebound: patient is unable to safely leave the house unattended d/t baseline cognitive function 3. Certification and Authentication I certify that I composed the above information based on my clinical judgment relating to this patient's medical condition and, if applicable, clinical findings communicated to me by the NPP or inpatient physician who performed the Home Health Referral. All further orders will be obtained through _Nisha Carrillo M.D._(Community Based Physician - PCP)
--- NOTE | 2022-04-01 14:22 | CMDISCH_ITS ---
- If Service Date Differs Date of service: 04/01/22 Time of Service: 14:22 LACE Index Scoring Tool - Questions: Length of Stay (in days): 1 Acuity (Admit via E.D.?): Yes Comorbidities: Previous M.I. E.D. Visits: 11 - Answers: Total Score: 9 Risk of Readmission: Low Risk Care Management Discharge Reason for Hospitalization: Hypomagnesemia, Ambulatory dysfunction, Atrial fibrillation with rapid ventricular response Discharge Plan: Judd is discharged home via [facility] private vehicle. New [facility] PT/HH services are ordered. Judd will resume community support services through CAREER GUIDANCE COUNSELOR. Judd will follow up with his PCP on 04/11/22 as scheduled. Recommendation is made to Ирина from CAREER GUIDANCE COUNSELOR, to please start discussing nursing home planning Judd's outpatient team. Patient/Family Education Needs: Review discharge instructions, limitations, m edications and plan to follow up with community providers. Discuss ask me three and CAREER GUIDANCE COUNSELOR to address marker delivery planning with community providers. Services Needed at Discharge: Home Health Care Services ([facility] PT/OT. CM notified H and CAREER GUIDANCE COUNSELOR), Transportation ([facility] Private Vehicle, coordinated by PAULO. CAREER GUIDANCE COUNSELOR is notified.)
--- NOTE | 2022-04-01 14:22 | PDOC.CMDIS ---
- If Service Date Differs Date of service: 04/01/22 Time of Service: 14:22 LACE Index Scoring Tool - Questions: Length of Stay (in days): 1 Acuity (Admit via E.D.?): Yes Comorbidities: Previous M.I. E.D. Visits: 11 - Answers: Total Score: 9 Risk of Readmission: Low Risk Care Management Discharge Reason for Hospitalization: Hypomagnesemia, Ambulatory dysfunction, Atrial fibrillation with rapid ventricular response Discharge Plan: Judd is discharged home via [facility] private vehicle. New [facility] PT/HH services are ordered. Judd will resume community support services through CALL CENTER REPRESENTATIVE. Judd will follow up with his PCP on 04/11/22 as scheduled. Recommendation is made to Ирина from CALL CENTER REPRESENTATIVE, to please start discussing custodial planning Judd's outpatient team. Patient/Family Education Needs: Review discharge instructions, limitations, medications and plan to follow up with community providers. Discuss ask me three and CALL CENTER REPRESENTATIVE to address custodial planning with community providers. Services Needed at Discharge: Home Health Care Services ([facility] PT/OT. CM notified H and CALL CENTER REPRESENTATIVE), Transportation ([facility] Private Vehicle, coordinated by PAUL[facility]. CALL CENTER REPRESENTATIVE is notified.)
--- NOTE | 2022-04-02 09:46 | INDS_ITS ---
Date of service: 04/02/22 Time of Service: 09:46 PT Notes Visit Reasons: Hypomagnesemia,Ambulatory Dysfunction Physical Therapy Inpatient Discharge Summary Date: 06/02/2022 Dates of Service: 06/01/2022 only This is a clinical summary of care provided for the duration of dates listed above. No charge was made in the completion of this documentation. Referring Doctor: Odalys Johns MD PT Orders: PT CONSULT: Limited ability Precautions: Fall. Standard. Activity as tolerated.? Patient Profile/Admitting Diagnosis:? Judd is a 61-year-old male with chronic schizophrenia who was brought to the ED on due to diaphoresis,? confusion,? and weakness.? He is diagnosed with hypomagnesemia,? ambulatory dysfunction, DM, chronic, and AF with RVR. PMHX: All Active Problems?(Updated 03/31/22 @ 16:16 by Odalys Johns, LESA) Diabetes mellitus, type 2 (Acute) Chronic schizophrenia (Acute) Hypomagnesemia (Acute) Ambulatory dysfunction (Acute) Hypokalemia (Acute) Atrial fibrillation with rapid ventricular response (Acute) Alteration in thought content as evidenced by delusions (Acute) Cellulitis (Acute) Cellulitis of left ankle (Acute) Blister of left foot (Acute) Hyperglycemia (Acute) Vitreous floaters of right eye (Acute) BRENNEN (acute kidney injury) (Acute) Screening for colorectal cancer (Acute) Medical History? Afib Atrial enlargement, bilateral BCC (basal cell carcinoma of skin) Bipolar disorder Chronic constipation Chronic schizophrenia Diabetes mellitus, type 2 Diverticulosis Heel ulcer HTN (hypertension) Hypothyroidism Non-ST elevation [place] (NSTEMI) OAB (overactive bladder) Obesity RLS (restless legs syndrome) Urinary incontinence Surgical History? Colonoscopy - MAC (01/25/16) 2011Excision Lipoma Hx of cholecystectomy Hydrocelectomy Tonsillectomy Social History/Home Situation: Lives alone in the basement of an apartment building with 2 stone steps to enter.? Ambulatory in the community using a single-point cane. Equipment Owned/DME: Single-point cane Subjective: NT. See most recent MANAGER OF REGULATORY AFFAIRS notes. Objective: General Observation: NT. See most recent MANAGER OF REGULATORY AFFAIRS notes. Mental Status: NT. See most recent MANAGER OF REGULATORY AFFAIRS notes. Pain: NT. See most recent MANAGER OF REGULATORY AFFAIRS notes. Vital Signs: NT. See most recent MANAGER OF REGULATORY AFFAIRS notes. ROM: Right Upper Extremity: ? Shoulder Flexion WFL. Shoulder abduction WFL. Shoulder ER/IR WFL. Elbow flexion WFL. Forearm pronation/supination WFL. Wrist flexion WFL. Opening and closing of hand WFL. Left Upper Extremity:? Shoulder Flexion WFL. Shoulder abduction WFL. Shoulder ER/IR WFL. Elbow flexion WFL. Forearm pronation/supination WFL. Wrist flexion WFL. Opening and closing of hand WFL. Right Lower Extremity: Hip flexion WFL. Hip abduction WFL. Hip ER/IR WFL. Knee flexion WFL. Knee extension -10 degrees. Ankle dorsiflexion/eversion to neutral only. Ankle plantarflexion/inversion WFL. Left Lower Extremity: Hip flexion WFL.? Hip abduction WFL. Hip ER/IR WFL. Knee flexion WFL. Knee extension -10 degrees. Ankle dorsiflexion to neutral only. Ankle plantarflexion WFL. Strength: Right Upper Extremity: Shoulder flexors 4-/5. Shoulder abductors 4-/5. Shoulder ER 4-/5. Shoulder IR 4-/5. Forearm pronators 4-/5. Forearm supinators 4-/5. Elbow flexors 4-/5. Elbow extensors 4-/5. Account Solutions Analyst weak but functional. Left Upper Extremity: Shoulder flexors 4-/5. Shoulder abductors 4-/5. Shoulder ER 4-/5. Shoulder IR 4-/5. Forearm pronators 4-/5. Forearm supinators 4-/5. Elbow flexors 4-/5. Elbow extensors 4-/5. Account Solutions Analyst weak but functional. Right Lower Extremity: Hip flexors 4-/5. Hip abductors 3+/5. Hip external rotators 3+/5. Hip internal rotators 3+/5. Knee flexors 3-/5. Knee extensors 3- /5. Ankle dorsiflexors/evertors 3-/5. Ankle plantarflexors/invertors 3-/5. Left Lower Extremity: Hip flexors 4-/5. Hip abductors 3+/5. Hip external rotators 3+/5. Hip internal rotators 3+/5. Knee flexors 3-/5. Knee extensors 3- /5. Ankle dorsiflexors/evertors 3-/5. Ankle plantarflexors/invertors 3-/5. Bed Mobility/Transfers: Sit to stand supervision Stand to sit supervision Bed to chair supervision Gait: 15 feet + 100 feet + 100 feet using newly provided FWW with step-through gait pattern with stand by assist.? Decreased emery.? Reported fatigue after the long walk but recovered with rest. Balance: Static Sitting: Normal Dynamic Sitting: Normal Static Standing: Fair Dynamic Standing: Fair Assessment: [place] requires the use of front wheeled walker to maximize independence and reduce fall risk at home.? Patient presents with clinical signs and symptoms consistent with current/admitting diagnoses that have resulted to mobility limitations, gait instability, generalized weakness, and overall ADL decline as demonstrated by the following impairment level findings: 1.? Decreased strength to BUE/LE? major muscle groups 2.? Impaired standing balance 3.? Impaired activity tolerance 4.? Shortness of breath Impairments are contributing to the following functional limitations: 1.? Difficulty with ambulation without assistive device 2.? Increased completion time for mobility ADL performance 3.? Increased risk for falls 4.? Difficulty with managing steps alone safely Goals: Goals X1 week 1. Supine-Sit independent NOT MET 2. Sit-Supine independent NOT MET 3. Sit-Stand independent NOT MET 4. Stand-Sit independent with SPC NOT MET 5. Bed-Chair independent with SPC NOT MET 6. Chair-Bed independent with SPC NOT MET 7.? Independent? with gait on level surface with use of SPC for at least 50 feet without report of pain nor dyspnea NOT MET 8.? Independent? with stair negotiation while holding onto 1? rails for at least 3 steps without report of pain nor dyspnea NOT MET 9. Good static and dynamic standing balance/tolerance NOT MET DISCHARGE RECOMMENDATIONS: [] ? Home with no services [] [X] ? Home with services when medically cleared by hospitalist.? Patient will benefit from home health PT services in order to progress mobility level using least restrictive assistive ambulatory device, assess home safety, identify additional equipment needs, and establish a functional maintenance program that will increase ability of patient to remain at home. [] ? Home with outpatient PT [] [] ? SNF for continued rehabilitation [] [] ? Resident Medical Officer Care [] [] ? SNF versus LTC based on ability to participate and progress [] TREATMENT CODE/TIME: NC Thank you for the opportunity to participate in the care of this patient. Karli Burrows PT, DPT, CLT [facility] [place], [place]
== END 2022-04-01 15:01 | disposition home health service (06) ==
LOC: ER 16:33 → MS 17:22
PROVIDERS: Nurse Practitioner Acute Care; Admitting Provider Internal Medicine; Emergency Provider Emergency Medicine; PCP Family Medicine; Visit Provider Internal Medicine
DX: E83.42 Hypomagnesemia (principal); R26.2 Difficulty in walking, not elsewhere classified; E11.9 Type 2 diabetes mellitus without complications; I48.91 Unspecified atrial fibrillation; F20.9 Schizophrenia, unspecified; R53.1 Weakness; Z79.84 Long term (current) use of oral hypoglycemic drugs; Z79.01 Long term (current) use of anticoagulants; E87.6 Hypokalemia; N17.9 Acute kidney failure, unspecified; F31.9 Bipolar disorder, unspecified; K59.09 Other constipation; F17.210 Nicotine dependence, cigarettes, uncomplicated; I87.2 Venous insufficiency (chronic) (peripheral); W19.XXXA Unspecified fall, initial encounter; Z20.822 Contact with and (suspected) exposure to COVID-19
CPT/HCPCS: 36415; 80048; 80053; 87635; 96365; 97162; 97530; 99285; 81003; 83735; 84484; 85025; 99217; 99219; G0378; J3490

== ENCOUNTER 2022-04-04 01:50 | Outpatient (CLI) | payer MEDICARE, MEDICAID, SELFPAY ==
[2022-04-04 10:54] LABS: Abs Immature Grans 0.09 10^3/uL (0.0-0.06); Absolute Basophil Count 0.05 10^3/uL (0.0-0.2); Absolute Lymphocyte Count 2.34 10^3/uL (1.2-3.4); Absolute Monocyte Count 0.61 10^3/uL (0.1-0.8); Absolute Neutrophil Count 6.71 10^3/uL (1.2-6.7); Basophils % 0.5; HCT 48.9 % (40.0-50.0); Immature Grans % 0.9; Lymphocytes % 23.6; MCH 31.7 pg (27.0-33.0); MCHC 34.8 % (32.0-36.0); MCV 91 fL (80-95); MPV 10.9 fL (8.0-11.0); Monocytes % 6.2; Neutrophils % 67.8; Platelet Count 277 10^3/uL (130-400); RBC 5.36 10^6/uL (4.36-5.78); RDW 12.2 % (11.8-14.1); RDW-SD 40.9 fL
== END 2022-04-04 01:51 | disposition home or self-care (01) ==
LOC: LBO 01:51
PROVIDERS: PCP Family Medicine; Visit Provider Psychiatry & Neurology Psychiatry
DX: Z79.899 Other long term (current) drug therapy (principal); F25.0 Schizoaffective disorder, bipolar type
CPT/HCPCS: 36415; 85025

== ENCOUNTER 2022-04-11 02:50 | Outpatient (CLI) | payer MEDICARE, MEDICAID, SELFPAY ==
[2022-04-11 10:40] LABS: Abs Immature Grans 0.08 10^3/uL (0.0-0.06); Absolute Eosinophil Count 0.19 10^3/uL (0.0-0.7); Absolute Lymphocyte Count 3.44 10^3/uL (1.2-3.4); Absolute Monocyte Count 0.82 10^3/uL (0.1-0.8); Absolute Neutrophil Count 6.23 10^3/uL (1.2-6.7); Basophils % 0.6; Eosinophils % 1.8; HCT 51.3 % (40.0-50.0); HGB 17.9 g/dL (13.5-17.5); Immature Grans % 0.7; Lymphocytes % 31.8; MCHC 34.9 % (32.0-36.0); MCV 92 fL (80-95); MPV 10.8 fL (8.0-11.0); Monocytes % 7.6; Neutrophils % 57.5; Platelet Count 357 10^3/uL (130-400); RBC 5.59 10^6/uL (4.36-5.78); RDW 12.3 % (11.8-14.1); RDW-SD 41.1 fL; WBC 10.83 10^3/uL (4.4-10.8)
[2022-04-11 10:41] LABS: Absolute Basophil Count 0.06 10^3/uL (0.0-0.2)
== END 2022-04-11 02:51 | disposition home or self-care (01) ==
LOC: LBO 02:51
PROVIDERS: PCP Family Medicine; Visit Provider Psychiatry & Neurology Psychiatry
DX: F25.0 Schizoaffective disorder, bipolar type (principal); Z79.899 Other long term (current) drug therapy
CPT/HCPCS: 36415; 85025

== ENCOUNTER 2022-04-15 12:56 | Outpatient (CLI) | payer MEDICARE, MEDICAID, SELFPAY | END 2022-04-15 12:57 | disposition home or self-care (01) | LOC: CARDOPNVT 12:56 | PROVIDERS: PCP Family Medicine; Visit Provider Nurse Practitioner Family | DX: I48.91 Unspecified atrial fibrillation (principal) | CPT/HCPCS: 93270 ==

== ENCOUNTER 2022-04-17 04:54 | Outpatient (CLI) | payer MEDICARE, MEDICAID, SELFPAY ==
[2022-04-17 11:01] LABS: Abs Immature Grans 0.04 10^3/uL (0.0-0.06); Absolute Basophil Count 0.06 10^3/uL (0.0-0.2); Absolute Eosinophil Count 0.08 10^3/uL (0.0-0.7); Absolute Lymphocyte Count 2.81 10^3/uL (1.2-3.4); Absolute Monocyte Count 0.69 10^3/uL (0.1-0.8); Absolute Neutrophil Count 6.28 10^3/uL (1.2-6.7); Basophils % 0.6; Eosinophils % 0.8; HCT 50.5 % (40.0-50.0); HGB 17.3 g/dL (13.5-17.5); Immature Grans % 0.4; Lymphocytes % 28.2; MCH 31.3 pg (27.0-33.0); MCHC 34.3 % (32.0-36.0); MCV 91 fL (80-95); MPV 11.3 fL (8.0-11.0); Monocytes % 6.9; Neutrophils % 63.1; Platelet Count 324 10^3/uL (130-400); RBC 5.53 10^6/uL (4.36-5.78); RDW 12.4 % (11.8-14.1); RDW-SD 41.4 fL; WBC 9.96 10^3/uL (4.4-10.8)
[2022-04-17 11:21] LABS: Anion Gap 12.2 mmol/L (3-11); BUN 18 mg/dL (7-18); CO2 23.8 mmol/L (21.0-32.0); Calcium 9.8 mg/dL (8.5-10.1); Chloride 104 mmol/L (98-107); Estimated GFR 84.57 (mL/min/1.73m2); Glucose 157 mg/dL (74-106); Magnesium 1.7 mg/dL (1.8-2.4); Potassium 3.5 mmol/L (3.5-5.1); Sodium 140 mmol/L (136-145)
[2022-04-18 09:17] LABS: Hemoglobin A1C 6.2 % (<5.7)
== END 2022-04-17 04:55 | disposition home or self-care (01) ==
LOC: LBO 04:54
PROVIDERS: PCP Family Medicine; Visit Provider Psychiatry & Neurology Psychiatry
DX: Z79.899 Other long term (current) drug therapy (principal); E11.9 Type 2 diabetes mellitus without complications; I10 Essential (primary) hypertension; E83.42 Hypomagnesemia; F25.0 Schizoaffective disorder, bipolar type
CPT/HCPCS: 36415; 80048; 83036; 83735; 85025

== ENCOUNTER 2022-04-25 01:28 | Outpatient (CLI) | payer MEDICARE, MEDICAID, SELFPAY ==
[2022-04-25 10:31] LABS: Abs Immature Grans 0.09 10^3/uL (0.0-0.06); Absolute Basophil Count 0.07 10^3/uL (0.0-0.2); Absolute Eosinophil Count 0.04 10^3/uL (0.0-0.7); Absolute Lymphocyte Count 2.27 10^3/uL (1.2-3.4); Absolute Neutrophil Count 11.13 10^3/uL (1.2-6.7); Basophils % 0.5; Eosinophils % 0.3; HCT 52.1 % (40.0-50.0); HGB 17.8 g/dL (13.5-17.5); Immature Grans % 0.6; Lymphocytes % 15.5; MCH 31.5 pg (27.0-33.0); MCHC 34.2 % (32.0-36.0); MCV 92 fL (80-95); MPV 11.5 fL (8.0-11.0); Neutrophils % 76.1; Platelet Count 195 10^3/uL (130-400); RBC 5.65 10^6/uL (4.36-5.78); RDW 12.6 % (11.8-14.1); RDW-SD 43.1 fL; WBC 14.63 10^3/uL (4.4-10.8)
[2022-04-25 10:33] LABS: Absolute Monocyte Count 1.02 10^3/uL (0.1-0.8)
== END 2022-04-25 01:29 | disposition home or self-care (01) ==
LOC: LBO 01:28
PROVIDERS: PCP Family Medicine; Visit Provider Psychiatry & Neurology Psychiatry
DX: F25.0 Schizoaffective disorder, bipolar type (principal); Z79.899 Other long term (current) drug therapy
CPT/HCPCS: 36415; 85025

== ENCOUNTER 2022-04-30 02:38 | Outpatient (CLI) | payer MEDICARE, MEDICAID, SELFPAY ==
[2022-04-30 11:06] LABS: Abs Immature Grans 0.13 10^3/uL (0.0-0.06); Absolute Basophil Count 0.08 10^3/uL (0.0-0.2); Absolute Eosinophil Count 0.22 10^3/uL (0.0-0.7); Absolute Lymphocyte Count 2.74 10^3/uL (1.2-3.4); Absolute Monocyte Count 0.85 10^3/uL (0.1-0.8); Absolute Neutrophil Count 7.72 10^3/uL (1.2-6.7); Basophils % 0.7; Eosinophils % 1.9; HCT 47.2 % (40.0-50.0); HGB 16.1 g/dL (13.5-17.5); Immature Grans % 1.1; Lymphocytes % 23.3; MCH 31.7 pg (27.0-33.0); MCHC 34.1 % (32.0-36.0); MCV 93 fL (80-95); MPV 11.6 fL (8.0-11.0); Monocytes % 7.2; Neutrophils % 65.8; Platelet Count 210 10^3/uL (130-400); RBC 5.08 10^6/uL (4.36-5.78); RDW 12.2 % (11.8-14.1); RDW-SD 42.6 fL; WBC 11.74 10^3/uL (4.4-10.8)
== END 2022-04-30 02:39 | disposition home or self-care (01) ==
LOC: LBO 02:38
PROVIDERS: PCP Family Medicine; Visit Provider Psychiatry & Neurology Psychiatry
DX: F25.0 Schizoaffective disorder, bipolar type (principal); Z79.899 Other long term (current) drug therapy
CPT/HCPCS: 36415; 85025

== ENCOUNTER 2022-05-07 15:31 | Outpatient (REF) | payer MEDICARE, MEDICAID, SELFPAY ==
[2022-05-07 17:05] LABS: ALT 10 U/L (16-63); AST 7 U/L (15-37); Alkaline Phosphatase 128 U/L (46-116); Anion Gap 8.1 mmol/L (3-11); BUN 8 mg/dL (7-18); Bilirubin, Total 0.2 mg/dL (0.2-1.0); CO2 28.9 mmol/L (21.0-32.0); Calcium 9.2 mg/dL (8.5-10.1); Chloride 104 mmol/L (98-107); Estimated GFR 84.57 (mL/min/1.73m2); Glucose 144 mg/dL (74-106); Magnesium 1.7 mg/dL (1.8-2.4); Potassium 4.1 mmol/L (3.5-5.1); Sodium 141 mmol/L (136-145); Total Protein 6.4 g/dL (6.4-8.2)
== END 2022-05-07 15:32 | disposition home or self-care (01) ==
LOC: NCHCN 15:31
PROVIDERS: PCP Family Medicine; Visit Provider Family Medicine
DX: R60.0 Localized edema (principal); E83.42 Hypomagnesemia
CPT/HCPCS: 80053; 83735

== ENCOUNTER 2022-05-09 02:38 | Outpatient (CLI) | payer MEDICARE, MEDICAID, SELFPAY ==
[2022-05-09 10:29] LABS: Abs Immature Grans 0.27 10^3/uL (0.0-0.06); Absolute Basophil Count 0.06 10^3/uL (0.0-0.2); Absolute Eosinophil Count 0.14 10^3/uL (0.0-0.7); Absolute Lymphocyte Count 2.09 10^3/uL (1.2-3.4); Absolute Monocyte Count 0.69 10^3/uL (0.1-0.8); Absolute Neutrophil Count 5.99 10^3/uL (1.2-6.7); Basophils % 0.6; Eosinophils % 1.5; HCT 43.9 % (40.0-50.0); HGB 14.3 g/dL (13.5-17.5); Immature Grans % 2.9; Lymphocytes % 22.6; MCH 31.2 pg (27.0-33.0); MCHC 32.6 % (32.0-36.0); MCV 96 fL (80-95); MPV 9.6 fL (8.0-11.0); Monocytes % 7.5; Neutrophils % 64.9; Platelet Count 338 10^3/uL (130-400); RBC 4.58 10^6/uL (4.36-5.78); RDW 12.8 % (11.8-14.1); RDW-SD 44.9 fL; WBC 9.24 10^3/uL (4.4-10.8)
== END 2022-05-09 02:39 | disposition home or self-care (01) ==
LOC: LBO 02:38
PROVIDERS: PCP Family Medicine; Visit Provider Psychiatry & Neurology Psychiatry
DX: F25.0 Schizoaffective disorder, bipolar type (principal); Z79.899 Other long term (current) drug therapy
CPT/HCPCS: 36415; 85025

== ENCOUNTER 2022-05-15 09:34 | Outpatient (CLI) | payer MEDICARE, MEDICAID, SELFPAY ==
--- NOTE | 2022-05-15 12:56 | W.CARDEVENT ---
Date of service: 05/15/22 Time of Service: 12:56 Cardiac Event Recorder Referring Provider:: Nisha Carrillo Indications:: Atrial fibrillation Cardiac Event Note: This is a 30-day event monitor ordered for atrial fibrillation. Possibly the patient was only monitored for a period of 8 days Atrial fibrillation was present throughout the recording with an average heart rate of 72. Minimum was 54 was 110, maximum No significant ventricular dysrhythmias were recorded there were no apparent patient's symptoms
== END 2022-05-15 09:35 | disposition home or self-care (01) ==
LOC: CARDOPNVT 09:34
PROVIDERS: PCP Family Medicine; Visit Provider Internal Medicine Cardiovascular Disease
DX: I48.91 Unspecified atrial fibrillation (principal)
CPT/HCPCS: 93272; 73610

== ENCOUNTER 2022-05-15 10:59 | Outpatient (CLI) | payer MEDICARE, MEDICAID, SELFPAY ==
--- NOTE | 2022-05-15 | DI.RAD_ITS ---
Exam(s) XR ANKLE RT COMPLETE EXAM: XR ANKLE RT COMPLETE CLINICAL HISTORY: RT ANKLE PAIN, M25.571, SPRAINED 2 DAYS AGO, ? FX. TECHNIQUE: 2D digital imaging was performed of the right ankle. Three images were obtained. AP, la teral and oblique views were obtained. COMPARISON: No exams were available for comparison FINDINGS: BONES: There is an acute fracture of the lateral malleolus at the level of the tibial talar joint. N o bony destructive lesion is seen. JOINTS: There is mild widening of the medial ankle joint. SOFT TISSUE: There is soft tissue swelling. IMPRESSION: 1. Acute transverse mildly impacted fracture involving the lateral malleolus with associated soft tis corinne swelling. 2. Mild widening of the medial ankle joint. DATA REPOSITORY: RADIATION DOSE DELIVERED:
== END 2022-05-15 11:19 ==
LOC: DI 11:00
PROVIDERS: PCP Family Medicine; Visit Provider Physician Assistant Medical
DX: M25.571 Pain in right ankle and joints of right foot (principal); S82.61XA Displaced fracture of lateral malleolus of right fibula, initial encounter for closed fracture; M79.89 Other specified soft tissue disorders
CPT/HCPCS: 73610

== ENCOUNTER 2022-05-16 01:32 | Outpatient (CLI) | payer MEDICARE, MEDICAID, SELFPAY ==
[2022-05-16 10:57] LABS: Abs Immature Grans 0.06 10^3/uL (0.0-0.06); Absolute Basophil Count 0.04 10^3/uL (0.0-0.2); Absolute Eosinophil Count 0.08 10^3/uL (0.0-0.7); Absolute Lymphocyte Count 2.38 10^3/uL (1.2-3.4); Absolute Monocyte Count 0.91 10^3/uL (0.1-0.8); Absolute Neutrophil Count 5.13 10^3/uL (1.2-6.7); Basophils % 0.5; Eosinophils % 0.9; HCT 49.4 % (40.0-50.0); HGB 16.3 g/dL (13.5-17.5); Immature Grans % 0.7; Lymphocytes % 27.7; MCH 30.8 pg (27.0-33.0); MCV 93 fL (80-95); Monocytes % 10.6; Neutrophils % 59.6; Platelet Count 331 10^3/uL (130-400); RDW 12.6 % (11.8-14.1); RDW-SD 43.3 fL
== END 2022-05-16 01:33 | disposition home or self-care (01) ==
LOC: LBO 01:33
PROVIDERS: PCP Family Medicine; Visit Provider Psychiatry & Neurology Psychiatry
DX: Z79.899 Other long term (current) drug therapy (principal); F25.0 Schizoaffective disorder, bipolar type
CPT/HCPCS: 36415; 99215; 85025

== ENCOUNTER 2022-05-16 10:56 | Outpatient (CLI) | payer MEDICARE, MEDICAID, SELFPAY ==
--- NOTE | 2022-05-16 09:30 | DI.RAD_ITS ---
Exam(s) XR ANKLE RT COMPLETE EXAM: XR ANKLE RT COMPLETE CLINICAL HISTORY: RIGHT ANKLE FRACTURE. TECHNIQUE: 2D digital imaging was performed of the right ankle. Five images were obtained. AP, lat eral and oblique views were obtained. COMPARISON: CR XR ANKLE RT COMPLETE from 05/15/2022 FINDINGS: BONES: There has been no change in alignment of the acute mildly impacted fracture of the distal fibu la. No bony destructive lesion is seen. JOINTS: There is persistent mild widening of the medial ankle joint. SOFT TISSUE: There is soft tissue swelling of the ankle. IMPRESSION: Stable distal fibular fracture with stable widening of the ankle joint medially. DATA REPOSITORY: RADIATION DOSE DELIVERED:
== END 2022-05-16 10:57 | disposition home or self-care (01) ==
LOC: DIORS 10:56
PROVIDERS: PCP Family Medicine; Referring Provider Family Medicine; Visit Provider Physician Assistant
DX: S82.891A Other fracture of right lower leg, initial encounter for closed fracture (principal); X58.XXXA Exposure to other specified factors, initial encounter; R60.0 Localized edema
CPT/HCPCS: 36415; 99215; 73610; 85025

== ENCOUNTER 2022-05-23 00:59 | Outpatient (CLI) | payer MEDICARE, MEDICAID, SELFPAY ==
[2022-05-23 11:39] LABS: Abs Immature Grans 0.04 10^3/uL (0.0-0.06); Absolute Basophil Count 0.07 10^3/uL (0.0-0.2); Absolute Eosinophil Count 0.07 10^3/uL (0.0-0.7); Absolute Lymphocyte Count 2.65 10^3/uL (1.2-3.4); Absolute Monocyte Count 0.54 10^3/uL (0.1-0.8); HCT 48.5 % (40.0-50.0); Immature Grans % 0.6; Lymphocytes % 36.5; MCH 30.7 pg (27.0-33.0); MCV 93 fL (80-95); MPV 10.7 fL (8.0-11.0); Monocytes % 7.4; Neutrophils % 53.5; Platelet Count 279 10^3/uL (130-400); RBC 5.22 10^6/uL (4.36-5.78); RDW 12.5 % (11.8-14.1); RDW-SD 43.1 fL; WBC 7.27 10^3/uL (4.4-10.8)
== END 2022-05-23 01:00 | disposition home or self-care (01) ==
LOC: LBO 00:59
PROVIDERS: PCP Family Medicine; Visit Provider Psychiatry & Neurology Psychiatry
DX: F25.0 Schizoaffective disorder, bipolar type (principal); Z79.899 Other long term (current) drug therapy
CPT/HCPCS: 36415; 85025

== ENCOUNTER 2022-05-27 13:32 | Outpatient (CLI) | payer MEDICARE, MEDICAID, SELFPAY ==
--- NOTE | 2022-05-27 13:15 | DI.RAD_ITS ---
Exam(s) XR ANKLE RT COMPLETE EXAM: XR ANKLE RT COMPLETE CLINICAL HISTORY: R ankle fx. TECHNIQUE: 2D digital imaging was performed. COMPARISON: 05/16/2022 x-rays FINDINGS: 3 views Soft tissue swelling again noted. Fracture of distal fibula again noted. There is slight widening o f the medial aspect of the ankle mortise evident. Medial malleolus is intact. Posterior malleolus i s intact. No obvious degenerative changes in the tibiotalar and subtalar joints. No osseous tarsal coalition. IMPRESSION: Distal fibular fracture again noted. Overlying soft tissue swelling. DATA REPOSITORY: RADIATION DOSE DELIVERED:
== END 2022-05-27 13:33 | disposition home or self-care (01) ==
LOC: DIORS 13:32
PROVIDERS: PCP Family Medicine; Referring Provider Family Medicine; Visit Provider Physician Assistant
DX: S82.891D Other fracture of right lower leg, subsequent encounter for closed fracture with routine healing (principal); X58.XXXD Exposure to other specified factors, subsequent encounter
CPT/HCPCS: 99213; 73610

== ENCOUNTER 2022-05-29 02:18 | Outpatient (CLI) | payer MEDICARE, MEDICAID, SELFPAY ==
[2022-05-29 10:53] LABS: Abs Immature Grans 0.06 10^3/uL (0.0-0.06); Absolute Basophil Count 0.07 10^3/uL (0.0-0.2); Absolute Eosinophil Count 0.05 10^3/uL (0.0-0.7); Absolute Monocyte Count 0.61 10^3/uL (0.1-0.8); Absolute Neutrophil Count 6.71 10^3/uL (1.2-6.7); Basophils % 0.7; Eosinophils % 0.5; HCT 48.6 % (40.0-50.0); HGB 16.5 g/dL (13.5-17.5); Immature Grans % 0.6; Lymphocytes % 27.2; MCH 31.2 pg (27.0-33.0); MCV 92 fL (80-95); MPV 10.3 fL (8.0-11.0); Monocytes % 5.9; Neutrophils % 65.1; Platelet Count 282 10^3/uL (130-400); RBC 5.29 10^6/uL (4.36-5.78); RDW 12.4 % (11.8-14.1); RDW-SD 41.8 fL
== END 2022-05-29 02:19 | disposition home or self-care (01) ==
LOC: LBO 02:18
PROVIDERS: PCP Family Medicine; Visit Provider Psychiatry & Neurology Psychiatry
DX: F25.0 Schizoaffective disorder, bipolar type (principal); Z79.899 Other long term (current) drug therapy
CPT/HCPCS: 36415; 85025

== ENCOUNTER 2022-06-04 09:50 | Emergency (ER) | payer MEDICARE, MEDICAID, SELFPAY ==
--- NOTE | 2022-06-04 09:45 | DI.CT_ITS ---
Exam(s) CT HEAD WO EXAM: CT HEAD WO CLINICAL HISTORY: spch changes, anticoagulated. TECHNIQUE: Imaging Protocol: Axial computed tomography images with coronal and sagittal reformatted images were created and reviewed COMPARISON: CT CT HEAD WO from 03/29/2022 FINDINGS: Ventricles and Extra axial spaces: Normal in size and morphology for the patient's age. Hemorrhage: None. Cerebral parenchyma: There is no evidence of an acute territorial infarct. Midline shift: None. Brainstem/Cerebellum: Normal. Calvarium: Normal. Visualized Paranasal sinuses/Mastoids: Clear. Soft Tissues: Unremarkable. IMPRESSION: 1. No acute intracranial process. 2. Findings were discussed with the emergency department at 10:40 a.m. on 06/04/2022. RADIATION DOSE DELIVERED: 854.63mGy.cm Total DLP DATA REPOSITORY: All CT scans at this facility are submitted to the National Radiology Data Registry (NRDR) Dose Index Registry (DIR) with the [employer] (ACR). RADIATION OPTIMIZATION: All CT scans at this facility use at least one of these dose optimization te chniques: automated exposure control; mA and/or kV adjustment per patient size (includes targeted exa ms where dose is matched to clinical indication); or iterative reconstruction.
[2022-06-04 09:51] VITALS: BP 144/83; PULSE 97; RESP 22; TEMP 36.2; O2SAT 92
[2022-06-04 09:59] VITALS: RESP 18
--- NOTE | 2022-06-04 10:08 | ED.GENADUL_ITS ---
Discharge Plan Disposition Patient Disposition: Home Condition: Improving Discharge Details Clinical Impression: Hypokalemia Primary Care Provider: Nisha Carrillo ED Provider: Clinton Gardner Home Meds and New Rx's Prescriptions: Continued lisinopril 5 mg tablet 5 mg PO DAILY Eliquis 5 MG tablet 5 mg PO BID Qty: 180 12RF sennosides [senna] 8.6 MG tablet 8.6 mg PO BID PRN1 Days Rx Instructions: prn divalproex 500 mg tablet extended release 24 hr 2,000 mg PO HS Rx Instructions: takes at 1600 loratadine 10 mg tablet 10 mg PO DAILY PRN bisacodyl 5 mg tablet,delayed release (DR/EC) 10 mg PO DAILY clozapine 200 mg tablet 400 mg PO HS Rx Instructions: With 100 mg tab for total of 500 mg po qhs lorazepam 0.5 mg tablet 0.5 mg PO .QH PRN triamcinolone acetonide 0.1 % cream 1 applic topical BID atorvastatin [Lipitor] 10 MG tablet 10 mg PO QPM thyroid (pork) [[place] Thyroid] 90 MG tablet 90 mg PO QAM melatonin 3 MG tablet extended release 3 mg PO HS PRN ropinirole 1 mg Tablet 1 mg PO DIRECTED Rx Instructions: DAILY at 1600 albuterol sulfate [Ventolin HFA] 90 mcg/actuation Hfa Aerosol Inhaler 2 puff INHALATION Q4H PRN polyethylene glycol 3350 [Miralax] 17 gram/dose powder 17 g PO BID PRN Label Comments: 17 gram by mouth once a day as needed Probiotic 10 billion cell capsule 0 cell PO HS Label Comments: Take 1 capsule by mouth at bedtime Rx Instructions: 1 CAPSULE PO QHS metformin 1,000 mg tablet 1,000 mg PO BID docusate sodium 100 mg capsule 200 mg PO BID PRN fluticasone propionate 50 mcg/actuation [place]yson,Suspension 1 spray INTRANASAL Q12H furosemide 20 mg tablet 40 mg PO DAILY clozapine 100 mg tablet 100 mg PO QHS Rx Instructions: Take in combination with two 200 mg tabs for total dose of 500 mg po qhs metoprolol succinate 25 mg Tablet Extended Release 24 Hr 12.5 mg PO DAILY Qty: 30 0RF clindamycin HCl 300 mg capsule 300 mg PO TID Qty: 15 0RF magnesium chloride 64 mg magnesium tablet 64 mg PO DAILY Qty: 30 0RF potassium chloride 20 mEq tablet extended release 20 meq PO DAILY Qty: 30 0RF Discharge Instructions Instructions: Hypokalemia (ED) Additional Instructions: Your potassium level was slightly low today and you were given an additional potassium tablet. Continue all of your regular medications. Your work-up included a CAT scan of the head and laboratory analysis. Return to the emergency room for any acute concerns. May resume normal routine and activities. Medical Decision Making 61-year-old male presents from home via EMS. A neighbor went to check on him and found his pillbox empty, concerned that he may have taken all his daily pills and called EMS. While EMS was evaluating the patient the patient's medications were delivered. There was a question of some slight change to speech on scene which is now resolved. Patient presents for evaluation. He states to me he has no acute complaints. He has been well and without illness. Patient's vital signs show a blood pressure 144/83, pulse is in the 90s, he is afebrile and oxygenating normally. Patient is an alcoholic who with A. fib who is anticoagulated. Given the question change in speech muscle please consider occult intracranial bleed. Would also consider alcohol intoxication, metabolic abnormality. Patient underwent screening laboratories and was referred for CT scan of the head. CT scan of the head unremarkable. Laboratory analysis is reassuring, noted potassium 3.1 which is supplemented in the emergency department. Patient will continue his home potassium supplements. He is stable, improved, no indication for further work-up at this time. Patient will be discharged home HPI General Mode of arrival: EMS . Date/Time Provider Initiated Documentation: 06/04/22 10:36 . Limitations to Documentation: no limitations . Information obtained by: patient and EMS . History of Present Illness 61 year old M presents to the emergency department with the chief complaint of General checkup, question speech changes, described as mild, Patient started experiencing this unknown and it has been now resolved. No relieving factors improve symptom(s), No exacerbating factors reported . Patient notes denies confusion, chest pain, diaphoresis and headaches. Patient did receive the following treatments prior to arrival, none Related Data Home Medications Medication Instructions Recorded Confirmed atorvastatin 10 mg tablet (Lipitor) 10 mg PO QPM 01/23/16 06/04/22 melatonin 3 mg tablet,extended 3 mg PO HS PRN 01/23/16 06/04/22 release thyroid (pork) 90 mg tablet 90 mg PO QAM 01/23/16 06/04/22 ([place] Thyroid) apixaban 5 mg tablet (Eliquis) 5 mg PO BID #180 tabs 07/20/17 06/04/22 sennosides 8.6 mg tablet (senna) 8.6 mg PO BID PRN 1 day 07/28/17 06/04/22 albuterol sulfate 90 mcg/actuation 2 puff inhalation Q4H PRN 03/27/19 06/04/22 aerosol inhaler (Ventolin HFA) ropinirole 1 mg tablet 1 mg PO DIRECTED 03/27/19 06/04/22 docusate sodium 100 mg capsule 200 mg PO BID PRN 11/13/20 06/04/22 fluticasone propionate 50 1 spray intranasal Q12H 05/13/21 05/27/22 mcg/actuation nasal spray,suspension lisinopril 5 mg tablet 5 mg PO DAILY 07/31/21 05/27/22 furosemide 20 mg tablet 40 mg PO DAILY 08/10/21 06/04/22 Lactobacillus acidophilus 10 0 cell PO HS 09/15/21 05/27/22 billion cell capsule (Probiotic) metformin 1,000 mg tablet 1,000 mg PO BID 09/15/21 06/04/22 polyethylene glycol 3350 17 17 g PO BID PRN 09/15/21 06/04/22 gram/dose oral powder (Miralax) bisacodyl 5 mg tablet,delayed 10 mg PO DAILY 09/16/21 05/27/22 release divalproex 500 mg tablet,extended 2,000 mg PO HS 09/16/21 06/04/22 release 24 hr loratadine 10 mg tablet 10 mg PO DAILY PRN 09/16/21 06/04/22 clozapine 200 mg tablet 400 mg PO HS 11/14/21 06/04/22 lorazepam 0.5 mg tablet 0.5 mg PO .QH PRN 11/14/21 06/04/22 clozapine 100 mg tablet 100 mg PO QHS 03/29/22 06/04/22 clindamycin HCl 300 mg capsule 300 mg PO TID #15 caps 03/30/22 05/27/22 magnesium chloride 64 mg 64 mg PO DAILY #30 tabs 03/30/22 06/04/22 (magnesium chloride) tablet metoprolol succinate 25 mg 12.5 mg PO DAILY #30 tabs 03/30/22 06/04/22 tablet,extended release 24 hr potassium chloride 20 mEq 20 meq PO DAILY #30 tabs 03/30/22 05/27/22 tablet,extended release triamcinolone acetonide 0.1 % 1 applic topical BID 04/17/22 06/04/22 topical cream Previous Rx's Medication Instructions Recorded apixaban 5 mg tablet (Eliquis) 5 mg PO BID #180 tabs 07/20/17 clindamycin HCl 300 mg capsule 300 mg PO TID #15 caps 03/30/22 magnesium chloride 64 mg 64 mg PO DAILY #30 tabs 03/30/22 (magnesium chloride) tablet metoprolol succinate 25 mg 12.5 mg PO DAILY #30 tabs 03/30/22 tablet,extended release 24 hr potassium chloride 20 mEq 20 meq PO DAILY #30 tabs 03/30/22 tablet,extended release Allergies Allergy/AdvReac Type Severity Reaction Status Date / Time Penicillins AdvReac Intermediate black out Unverified 06/04/22 09:58 gabapentin AdvReac Mild Headache Unverified 06/04/22 09:58 niacin AdvReac Mild turn red Unverified 06/04/22 09:58 General Stated Complaint: GenMedical MARY: 4 Review of Systems Narrative: Recently well, no acute complaints. 8 systems were reviewed and otherwise negative. PFSH All Active Problems (Updated 06/04/22 @ 11:10 by Clinton Gardner MD) Hypokalemia (Acute) Closed right ankle fracture (Acute ~05/12/22) Diabetes mellitus, type 2 (Acute) Chronic schizophrenia (Acute) Hypomagnesemia (Acute) Ambulatory dysfunction (Acute) Hypokalemia (Acute) Atrial fibrillation with rapid ventricular response (Acute) Alteration in thought content as evidenced by delusions (Acute) Cellulitis (Acute) Cellulitis of left ankle (Acute) Blister of left foot (Acute) Hyperglycemia (Acute) Vitreous floaters of right eye (Acute) BRENNEN (acute kidney injury) (Acute) Screening for colorectal cancer (Acute) Medical History Afib Atrial enlargement, bilateral BCC (basal cell carcinoma of skin) Bipolar disorder Chronic constipation Diverticulosis Heel ulcer HTN (hypertension) Hypothyroidism Non-ST elevation AL (NSTEMI) OAB (overactive bladder) Obesity RLS (restless legs syndrome) Urinary incontinence Surgical History Colonoscopy - MAC (01/25/16) 2010 Excision, Lipoma Hx of cholecystectomy Hydrocelectomy Tonsillectomy Family History Mother No problems noted. Father Heart disease Brother Alcohol abuse Social History Smoking/Tobacco Use Status: Current every day Tobacco Type: cigarettes Smoking risk assessment performed?: Yes Alcohol Intake: current Alcohol Intake frequency: holidays/special occasions only Alcohol type: beer and hard liquor Drug use: Current Sobriety Substance use type: does not use Current gender identity: male Do you feel safe at home: Yes Do you feel safe in your relationship?: Yes Exam Narrative Exam Narrative: GEN: awake, alert, oriented 3. Pleasant, well groomed, interactive. HEAD: Normocephalic, atraumatic ENT: Mucous membranes moist, oropharynx unremarkable, External ear exam unremarkable EYES: PERRL, EOMI NECK: Full ROM, no BAM, no menigismus CHEST/RESP: Nontender, clear to auscultation bilateral, no wheeze/rhonchi/rales CARDIOVASCULAR: RRR, no murmur, rub sharri. 2+ Rad pulse bilateral ABDOMEN: Soft, nontender, no mass. +Bowel sounds EXT: Full ROM, no edema, no rash, cranial nerves II through XII intact. Neuro: Grossly normal neurologic exam, conversant, interactive. Right foot in walking boot Psych: Speech fluent, thoughts congruent, affect normal Course Vital Signs Vital signs: Vital Signs Temperature 36.2 C L 06/04/22 09:51 Pulse 97 H 06/04/22 09:51 Respiratory Rate 22 06/04/22 09:51 Blood Pressure 144/83 H 06/04/22 09:51 Pulse Oximetry 92 06/04/22 09:51 Temperature 36.2 C L 06/04/22 09:51 Pulse 97 H 06/04/22 09:51 Respiratory Rate 18 06/04/22 09:59 Respiratory Effort Non-Labored 06/04/22 09:59 Respiratory Depth Normal 06/04/22 09:59 Respiratory Pattern Normal 06/04/22 09:59 Blood Pressure 144/83 H 06/04/22 09:51 Blood Pressure Position Sitting 06/04/22 09:51 Pulse Oximetry 92 06/04/22 09:51 Oxygen Delivery Method Room Air 06/04/22 09:51 Oxygen Flow Rate 0 06/04/22 09:51 Pain Level 0 06/04/22 09:51 PAWSS Have you Been Recently Intoxicated or Drunk Within the Last 30 days?: No Have you Ever Experienced Previous Episodes of Alcohol Withdrawal?: No Have you ever Experienced Withdrawal Seizures?: No Have you ever Experienced Delirium Tremens(DT)s?: No Have you ever undergone Alcohol Rehabilitation Treatment (i.e, inpt ot outpatient treatment programs)?: No Have you ever Experienced Blackouts?: No Have you ever Combined Alcohol with other Downers within the last 90 days?: No Have you ever Combined Alcohol with any other Substance of Abuse during the last 90 days?: No Positive Blood Alcohol level on Presentation? [PCS.BAL]: No Evidence of Increased Autonomic Activity (i.e. HR>120, tremor, sweating, agitation, nausea)?: No Result: 0
[2022-06-04 10:46] LABS: Abs Immature Grans 0.03 10^3/uL (0.0-0.06); Absolute Basophil Count 0.03 10^3/uL (0.0-0.2); Absolute Eosinophil Count 0.07 10^3/uL (0.0-0.7); Absolute Monocyte Count 0.35 10^3/uL (0.1-0.8); Basophils % 0.6; Eosinophils % 1.3; HCT 51.9 % (40.0-50.0); HGB 17.2 g/dL (13.5-17.5); Immature Grans % 0.6; Lymphocytes % 46.5; MCH 30.2 pg (27.0-33.0); MCHC 33.1 % (32.0-36.0); MCV 91 fL (80-95); MPV 10.8 fL (8.0-11.0); Monocytes % 6.5; Neutrophils % 44.5; Platelet Count 202 10^3/uL (130-400); RBC 5.69 10^6/uL (4.36-5.78); RDW 12.3 % (11.8-14.1); RDW-SD 40.9 fL; WBC 5.38 10^3/uL (4.4-10.8)
[2022-06-04 10:55] LABS: Magnesium 1.9 mg/dL (1.8-2.4)
[2022-06-04 10:57] LABS: Prothrombin Time 10.1 sec (9.3-11.0)
[2022-06-04 10:58] LABS: ALT 30 U/L (16-63); AST 26 U/L (15-37); Albumin 3.7 g/dL (3.4-5.0); Alkaline Phosphatase 120 U/L (46-116); Anion Gap 9.1 mmol/L (3-11); BUN 14 mg/dL (7-18); Bilirubin, Total 0.4 mg/dL (0.2-1.0); CO2 30.9 mmol/L (21.0-32.0); Calcium 9.6 mg/dL (8.5-10.1); Chloride 102 mmol/L (98-107); Estimated GFR 84.57 (mL/min/1.73m2); Glucose 141 mg/dL (74-106); Potassium 3.1 mmol/L (3.5-5.1); Sodium 142 mmol/L (136-145); Total Protein 8.5 g/dL (6.4-8.2)
[2022-06-04 11:03] LABS: ETHANOL BLOOD < 3.0 mg/dL (<10)
[2022-06-04] MEDS: Potassium Chloride 20 MEQ TABCR PO (11:16)
== END 2022-06-04 11:23 | disposition home or self-care (01) ==
PROVIDERS: Emergency Provider Emergency Medicine; PCP Family Medicine
DX: E87.6 Hypokalemia (principal); I48.91 Unspecified atrial fibrillation; I10 Essential (primary) hypertension; I25.2 Old myocardial infarction; Z79.01 Long term (current) use of anticoagulants; Z79.899 Other long term (current) drug therapy
CPT/HCPCS: 36415; 80053; 99284; 70450; 80320; 83735; 85025; 85610

== ENCOUNTER 2022-06-06 02:45 | Outpatient (CLI) | payer MEDICARE, MEDICAID, SELFPAY ==
[2022-06-06 10:55] LABS: Absolute Basophil Count 0.04 10^3/uL (0.0-0.2); Absolute Eosinophil Count 0.08 10^3/uL (0.0-0.7); Absolute Monocyte Count 0.61 10^3/uL (0.1-0.8); Absolute Neutrophil Count 4.42 10^3/uL (1.2-6.7); Basophils % 0.5; HCT 51.9 % (40.0-50.0); HGB 16.9 g/dL (13.5-17.5); Immature Grans % 1.2; Lymphocytes % 35.6; MCHC 32.6 % (32.0-36.0); MCV 92 fL (80-95); MPV 10.7 fL (8.0-11.0); Monocytes % 7.5; Neutrophils % 54.2; Platelet Count 237 10^3/uL (130-400); RBC 5.64 10^6/uL (4.36-5.78); RDW 12.5 % (11.8-14.1); RDW-SD 42.6 fL; WBC 8.15 10^3/uL (4.4-10.8)
== END 2022-06-06 02:46 | disposition home or self-care (01) ==
LOC: LBO 02:46
PROVIDERS: PCP Family Medicine; Visit Provider Psychiatry & Neurology Psychiatry
DX: F25.0 Schizoaffective disorder, bipolar type (principal); Z79.899 Other long term (current) drug therapy
CPT/HCPCS: 36415; 85025

== ENCOUNTER 2022-06-13 02:48 | Outpatient (CLI) | payer MEDICARE, MEDICAID, SELFPAY ==
[2022-06-13 10:39] LABS: Abs Immature Grans 0.04 10^3/uL (0.0-0.06); Absolute Basophil Count 0.06 10^3/uL (0.0-0.2); Absolute Eosinophil Count 0.06 10^3/uL (0.0-0.7); Absolute Monocyte Count 0.93 10^3/uL (0.1-0.8); Absolute Neutrophil Count 9.66 10^3/uL (1.2-6.7); Basophils % 0.4; Eosinophils % 0.4; HCT 52.3 % (40.0-50.0); HGB 17.8 g/dL (13.5-17.5); Immature Grans % 0.3; Lymphocytes % 22.4; MCH 30.4 pg (27.0-33.0); MCV 89 fL (80-95); MPV 10.8 fL (8.0-11.0); Monocytes % 6.7; Neutrophils % 69.8; Platelet Count 316 10^3/uL (130-400); RBC 5.86 10^6/uL (4.36-5.78); RDW 12.1 % (11.8-14.1); RDW-SD 39.7 fL; WBC 13.84 10^3/uL (4.4-10.8)
== END 2022-06-13 02:49 | disposition home or self-care (01) ==
LOC: LBO 02:49
PROVIDERS: PCP Family Medicine; Visit Provider Psychiatry & Neurology Psychiatry
DX: F25.0 Schizoaffective disorder, bipolar type (principal); Z79.899 Other long term (current) drug therapy
CPT/HCPCS: 36415; 85025

== ENCOUNTER 2022-06-20 01:17 | Outpatient (CLI) | payer MEDICARE, MEDICAID, SELFPAY ==
[2022-06-20 10:50] LABS: Abs Immature Grans 0.04 10^3/uL (0.0-0.06); Absolute Eosinophil Count 0.12 10^3/uL (0.0-0.7); Absolute Monocyte Count 0.69 10^3/uL (0.1-0.8); Absolute Neutrophil Count 8.73 10^3/uL (1.2-6.7); Basophils % 0.5; Eosinophils % 0.9; HGB 17.8 g/dL (13.5-17.5); Immature Grans % 0.3; Lymphocytes % 27.2; MCHC 34.2 % (32.0-36.0); MCV 91 fL (80-95); MPV 10.8 fL (8.0-11.0); Monocytes % 5.2; Neutrophils % 65.9; Platelet Count 245 10^3/uL (130-400); RBC 5.74 10^6/uL (4.36-5.78); RDW 12.6 % (11.8-14.1); RDW-SD 41.1 fL; WBC 13.25 10^3/uL (4.4-10.8)
[2022-06-20 10:51] LABS: Absolute Basophil Count 0.07 10^3/uL (0.0-0.2)
== END 2022-06-20 01:18 | disposition home or self-care (01) ==
LOC: LBO 01:17
PROVIDERS: PCP Family Medicine; Visit Provider Psychiatry & Neurology Psychiatry
DX: Z79.899 Other long term (current) drug therapy (principal); F25.0 Schizoaffective disorder, bipolar type
CPT/HCPCS: 36415; 85025

== ENCOUNTER 2022-06-20 17:25 | Inpatient (IN) | payer MEDICARE, MEDICAID, SELFPAY ==
[2022-06-20 17:30] VITALS: BP 107/72; PULSE 100; RESP 18; TEMP 34.5; O2SAT 96
--- NOTE | 2022-06-20 18:28 | NUR.NOTE ---
pt unsure of medications - does not have list Nursing Note:
--- NOTE | 2022-06-20 18:30 | RT.EKG_ITS ---
APPROVED REPORT Exam: Resting ECG Reason for Exam: fall Patient Location: E HR:85 bpm ECG Measurements Heart Rate 85 AXIS MA [id number] P [id number] QRSd 93 QRS 64 QT 392 T -68 QTc 466 Conclusion Atrial fibrillation...V-rate 60- 84, irreg A-activity Ventricular premature complex...V complex w/ short R-R interval Anteroseptal infarct, old...Q >40mS, V1-V2 Repol abnrm suggests ischemia, anterolateral...ST dep, T neg, I aVL V2-V6 T wave inversion laterally are new compared to priors. No STEMI.
--- NOTE | 2022-06-20 18:39 | DI.CT_ITS ---
Exam(s) CT HEAD CERV SPINE FACIAL WO EXAM: CT HEAD CERV SPINE FACIAL WO CLINICAL HISTORY: fall, [place]. TECHNIQUE: Imaging Protocol: Axial computed tomography images with coronal and sagittal reformatted images were created and reviewed COMPARISON: CT CT HEAD CERVICAL SPINE WO from 04/21/[address] HEAD WO from 03/29/[address] HEAD WO from 06/04/2022 FINDINGS: CT Head: Ventricles and Extra axial spaces: Normal in size and morphology for the patient's age. Hemorrhage: None. Cerebral parenchyma: No evidence of an acute territorial infarct. There are areas of decreased atten uation in the white matter consistent with small vessel ischemic disease. Midline shift: None. Brainstem/Cerebellum: Normal. Calvarium: There fractures of the nasal bone. The calvarium is intact. Visualized Paranasal sinuses/Mastoids: There is minimal mucosal thickening in the right frontal sinus . The remaining visualized paranasal sinuses and mastoid air cells are clear. Soft Tissues: Soft tissue injury is seen overlying the frontal and nasal bones. CT Face: Facial Bones: Fracture of the nasal bones is present. No other facial fracture is seen. Sinuses and Mastoids: There is minimal mucosal thickening in the right frontal sinus. The remaining visualized paranasal sinuses are clear. Globes, extraocular muscles, optic nerves and retrobulbar fat: Normal. Upper aerodigestive tract: Normal. Mandible and bilateral temporomandibular joints: Normal. Soft tissues: There is soft tissue injury overlying the frontal and nasal bones. No radiopaque forei gn bodies are seen. CT Cervical Spine: Bones: There is a new osseous fragment seen superior to the left lateral mass of C1. This was not pr esent on the CT scan of the neck from 06/21/2019. The findings are suspicious for an acute avulsion f racture. Multilevel degenerative changes are seen in the cervical spine. There is nonspecific rever fabio of the normal cervical lordosis. This may be secondary to muscle spasm or patient positioning. Soft Tissues: Unremarkable. Lung Apices: Clear. IMPRESSION: 1. No acute intracranial process. 2. Probable avulsion fracture of the left lateral mass of C1. 3. Acute fracture of the nasal bones. RADIATION DOSE DELIVERED: 2,464.87mGy.cm Total DLP DATA REPOSITORY: All CT scans at this facility are submitted to the National Radiology Data Registry (NRDR) Dose Index Registry (DIR) with the [employer] (ACR). RADIATION OPTIMIZATION: All CT scans at this facility use at least one of these dose optimization te chniques: automated exposure control; mA and/or kV adjustment per patient size (includes targeted exa ms where dose is matched to clinical indication); or iterative reconstruction.
[2022-06-20 19:06] VITALS: TEMP 36
[2022-06-20] MEDS: Lactated Ringers 1,000 ML 1000 ML IV (19:12)
[2022-06-20] MEDS: Lidocaine/Epinephri/Tetracaine Topical Gel 3 ML TP (19:12)
--- NOTE | 2022-06-20 19:12 | DI.RAD_ITS ---
Exam(s) XR CHEST 1V IN DI DEPT EXAM: XR CHEST 1V IN DI DEPT CLINICAL HISTORY: trauma TECHNIQUE: 2D digital imaging was performed of the chest. One image was obtained. An AP view was ob tained. COMPARISON: CR,XR XR CHEST 2V PA LATERAL from 03/29/2022 FINDINGS: MEDIASTINUM: Normal. HEART: Cardiomegaly. PULMONARY VASCULATURE: Normal. LUNGS: No definite focal consolidating infiltrates are seen. PLEURAL SPACE: There is blunting of the left costophrenic angle which may represent a small effusion. No right effusion is seen. No pneumothorax is present. BONE:Within normal limits for the patient's age. OTHER FINDINGS:Normal. IMPRESSION: 1. Cardiomegaly. 2. Blunting of the left costophrenic angle which may represent a small left pleural effusion. DATA REPOSITORY: RADIATION DOSE DELIVERED:
[2022-06-20 19:18] LABS: ALT 34 U/L (16-63); AST 21 U/L (15-37); Albumin 3.8 g/dL (3.4-5.0); Alkaline Phosphatase 126 U/L (46-116); Anion Gap 9.4 mmol/L (3-11); BUN 18 mg/dL (7-18); Bilirubin, Total 0.5 mg/dL (0.2-1.0); CO2 28.6 mmol/L (21.0-32.0); CREATININE 1.4 mg/dL (0.70-1.30); Calcium 9.6 mg/dL (8.5-10.1); Chloride 100 mmol/L (98-107); Creatine Kinase 41 U/L (39-308); Estimated GFR 56.48 (mL/min/1.73m2); Glucose 153 mg/dL (74-106); Magnesium 1.9 mg/dL (1.8-2.4); Potassium 3.8 mmol/L (3.5-5.1); Sodium 138 mmol/L (136-145); Total Protein 8.5 g/dL (6.4-8.2); Troponin I < 50 ng/L (<or=60)
[2022-06-20 20:36] VITALS: BP 107/61; PULSE 69; RESP 20; O2SAT 98
--- NOTE | 2022-06-20 20:55 | NUR.NOTE ---
Nursing Note: Pt eating sandwich/coke. NAD noted currently.
--- NOTE | 2022-06-20 21:15 | NUR.NOTE ---
Accessed [facility] for accurate medication list.Nursing Note:
--- NOTE | 2022-06-20 21:38 | DI.VRAD_ITS ---
PROCEDURE INFORMATION: Exam: XR Chest Exam date and time: 06/20/2022 7:31 PM Age: 61 years old Clinical indication: Injury or trauma; Fall; Injury details: Head injury TECHNIQUE: Imaging protocol: Radiologic exam of the chest. Views: 1 view. COMPARISON: CR XR CHEST 2V PA LATERAL 03/29/2022 1:19 PM FINDINGS: Lungs: Opacities in the left base may represent atelectasis or pneumonia.. Pleural spaces: Mild left pleural effusion. Heart/Mediastinum: Cardiomegaly Bones/joints: Unremarkable. IMPRESSION: 1. Opacities in the left base may represent atelectasis or pneumonia.. 2. Mild left pleural effusion. Dictated and Authenticated by: Storm Sanchez MD. Ordering:ZAIRE Hassan MD
[2022-06-20 21:41] LABS: Troponin I < 50 ng/L (<or=60)
--- NOTE | 2022-06-20 21:58 | DI.VRAD_ITS ---
Addendum created by Rudy Rodríguez MD on 06/20/2022 10:02:44 PM EST: Comparing this study 06/04/22 the avulsion fracture of C1 is acute. THIS REPORT CONTAINS FINDINGS THAT MAY BE CRITICAL TO PATIENT CARE. The findings were verbally communicated via telephone conference with Sonya Butcher at 10:02 PM EST on 06/20/2022. The findings were acknowledged and understood. Initial report created on 06/20/2022 9:57:50 PM EST: PROCEDURE INFORMATION: Exam: CT Head Without Contrast Exam date and time: 06/20/2022 7:22 PM Age: 61 years old Clinical indication: Injury or trauma; Blunt trauma (contusions or hematomas); Consciousness not specified; Forehead and nose; Injury details: Fall, hi TECHNIQUE: Imaging protocol: Computed tomography of the head without contrast. Radiation optimization: All CT scans at this facility use at least one of these dose optimization techniques: automated exposure control; mA and/or kV adjustment per patient size (includes targeted exams where dose is matched to clinical indication); or iterative reconstruction. COMPARISON: CT HEAD WO 06/04/2022 10:14 AM FINDINGS: Brain: There is moderate diffuse heterogeneity of the white matter attenuation, consistent with chronic white matter microangiopathic ischemic changes. There is moderate diffuse cerebral atrophy present. There is no evidence of intracranial hemorrhage. There is no evidence of acute intracranial injury or other pathologic process. There is no evidence of an acute ischemic event. Cerebral ventricles: The ventricular system demonstrates mild diffuse compensatory enlargement. Paranasal sinuses: There is no evidence of fluid levels, mucoperiosteal thickening, or opacification to suggest acute or chronic sinusitis. Mastoid air cells: The mastoid aircells are normal. Orbital cavities: The orbits are normal without evidence of fracture. There is no evidence of retro-bulbar hemorrhage. There is no evidence of globe or lens injury. Bones/joints: There is a fracture of the nasal bones. The bony cranium shows no evidence of injury or other acute pathologic processes. Soft tissues: There is a laceration and soft tissue swelling at the frontal region and nasal region. The extracranial soft tissues are normal. Vasculature: Vascular calcifications seen consistent with chronic atherosclerotic cerebrovascular disease. IMPRESSION: 1. No evidence of an acute intracranial abnormality. 2. There is moderate age-related atrophy and chronic white matter ischemic changes, with compensatory ventricular dilation. 3. There is a fracture of the nasal bones. 4. There is a laceration and soft tissue swelling at the frontal region and nasal region. PROCEDURE INFORMATION: Exam: CT Maxillofacial Without Contrast Exam date and time: 06/20/2022 7:22 PM Age: 61 years old Clinical indication: Injury or trauma; Blunt trauma (contusions or hematomas); Consciousness not specified; Forehead and nose; Injury details: Fall, hi TECHNIQUE: Imaging protocol: Computed tomography of the face without contrast. Radiation optimization: All CT scans at this facility use at least one of these dose optimization techniques: automated exposure control; mA and/or kV adjustment per patient size (includes targeted exams where dose is matched to clinical indication); or iterative reconstruction. COMPARISON: CT HEAD WO 06/04/2022 10:14 AM FINDINGS: Orbital cavities: The orbits are normal without evidence of fracture. There is no evidence of retro-bulbar hemorrhage. There is no evidence of globe or lens injury. Bones/joints: The bony cranium shows no evidence of injury or other acute pathologic processes. Paranasal sinuses: Probable osteoma present within the right sinus. Mucoperiosteal thickening consistent with chronic sinusitis. No air-fluid levels to suggest evidence of acute sinusitis. Mastoid air cells: The mastoid aircells are normal. Soft tissues: The extracranial soft tissues are normal. Vasculature: Vascular calcifications seen consistent with chronic atherosclerotic cerebrovascular disease. Brain: There is mild diffuse heterogeneity of the white matter attenuation, consistent with chronic white matter microangiopathic ischemic changes. There is [id number] diffuse cerebral atrophy present. There is no evidence of intracranial hemorrhage. There is no evidence of acute intracranial injury or other pathologic process. There is no evidence of an acute ischemic event. Cerebral ventricles: The ventricular system demonstrates mild diffuse compensatory enlargement. Dental: There is poor dentition with multiple missing teeth and active dental caries. There is a periapical abscess present within the left anterior lower alveolar ridge. IMPRESSION: 1. No evidence of an acute intracranial abnormality. 2. There is moderate age-related atrophy and chronic white matter ischemic changes, with compensatory ventricular dilation. 3. There is poor dentition with multiple missing teeth and active dental caries. There is a periapical abscess present within the left anterior lower alveolar ridge. PROCEDURE INFORMATION: Exam: CT Cervical Spine Without Contrast Exam date and time: 06/20/2022 7:22 PM Age: 61 years old Clinical indication: Injury or trauma; Blunt trauma (contusions or hematomas); Consciousness not specified; Forehead and nose; Injury details: Fall, hi TECHNIQUE: Imaging protocol: Computed tomography of the cervical spine without contrast. Radiation optimization: All CT scans at this facility use at least one of these dose optimization techniques: automated exposure control; mA and/or kV adjustment per patient size (includes targeted exams where dose is matched to clinical indication); or iterative reconstruction. COMPARISON: CT HEAD CERVICAL SPINE WO 09/03/2021 4:06 AM FINDINGS: Bones/joints: Probable avulsion fracture of the left lateral mass of C1. There is a nonspecific reversal of the normal cervical lordosis. This may represent paravertebral muscle spasm versus positioning. Clinical correlation recommended. There is no evidence of acute vertebral body element or posterior vertebral element fracture. The anterior posterior borders of the vertebral bodies are in good alignment. No evidence of acute subluxation. There are moderate degenerative changes of the cervical spine. There are moderate to severe degenerative changes of the facets bilaterally. There is no evidence of acute disc injury. The spinal canal and cord are otherwise normal.. The visualized portions of the skull base and brain are unremarkable. Lungs: The visualized portions of the lung apices are unremarkable. Lymph nodes: There is no evidence of lymphadenopathy. Soft tissues: The prevertebal, paravertebral, pharyngeal, hypopharyngeal, and laryngeal soft tissue structures are unremarkable. Other findings: Mild neurforaminal narrowing secondary to degenerative changes present. Mild narrowing of the central spinal canal secondary to degenerative changes. IMPRESSION: 1. Probable avulsion fracture of the left lateral mass of C1. 2. There is a nonspecific reversal of the normal cervical lordosis. This may represent paravertebral muscle spasm versus positioning. Clinical correlation recommended. 3. The anterior posterior borders of the vertebral bodies are in good alignment. No evidence of acute subluxation. 4. There are moderate degenerative changes of the cervical spine. 5. There is no evidence of acute disc injury. Dictated and Authenticated by: Rudy Rodríguez MD. Ordering:ZAIRE Hassan MD
[2022-06-20] MEDS: LORazepam 2 MG/ML VIAL 1 MG IVP (22:52)
[2022-06-20] MEDS: Divalproex Sodium 500 MG TAB.ER.24H 2000 MG PO (22:52)
[2022-06-20] MEDS: Metoprolol 12.5 MG TAB PO (22:53)
[2022-06-20] MEDS: metFORMIN 500 MG TAB 1000 MG PO (22:53)
[2022-06-20 23:17] VITALS: BP 116/70; PULSE 74; RESP 16; O2SAT 95
--- NOTE | 2022-06-20 23:19 | ED.GENADUL_ITS ---
Discharge Plan Disposition Patient Disposition: Admit to [facility] Condition: Good Discharge Details Chief Complaint: Laceration Clinical Impression: C1 cervical fracture, Chronic schizophrenia Admit Date/Time: 06/21/22 00:47 Admit Provider: Kar Espana Attending Provider: Kar Espana Primary Care Provider: Nisha Carrillo ED Provider: Sonya Butcher Medical Decision Making <SWAPNA Crawley - Last Filed: 06/21/22 00:25> This 61-year-old male with history of schizophrenia, chronic anticoagulation on Eliquis for history of atrial fibrillation presents status post fall, uncertain to of why patient fell Found by his mental health worker, he was alert and oriented upon initial assessment Sent here for evaluation of head injury Neurologically intact and at patient's baseline unable to recall event Of note, he does have history of schizophrenia and he is presenting at his baseline Tetanus is reportedly up-to-date Patient denies any pain complaints Secondary to age, presenting complaints, and Eliquis, CT head, cervical spine, and facial bones were ordered, case is discussed with on-call radiology for virtual radiology and patient has a fracture to his lateral vertebral body and several nasal bone fractures, radiology states that this is not unstable Case is discussed with Dr. Saleem, orthopedic trauma at [facility] and patient will need to hold Eliquis for the next 72 hours and be placed in a collar with neck immobilized is much as possible he will need cervical spine films in follow-up for reassessment The recommendation is that he have complete cervical spine films prior to an appointment, they will reach out to patient for contact Secondary to patient's baseline schizophrenia, living independently, unknown source of fall, EKG changes in lateral leads, the recommendation is that he is admitted for observation, patient adamantly denies any chest pain Case was discussed with Dr. Navarro, hospitalist and recommendation is to admit to trauma surgery, Dr. Espana was consulted pending acceptance for admission Patient will likely need NKA chest worker and care management involvement in this case He is agreeable to stay overnight He was given Ativan for comfort and attempt to place a collar which he is adamantly refusing at this time Unfortunately we cannot force this 61-year-old gentleman against his will to wear a cervical collar and so as the risk of patient agitation with a collar in place outweighs the benefits, he will be maintained in a supine position with his neck in appropriate position and will not be ambulatory Dr. Goddard was consulted and he recommends trauma admission, Dr. Espana is on her way for evaluation On reassessment, patient is willing to wear a soft collar which is in place Care be transitioned to Dr. Calderon pending Dr. Espana evaluation which <Hermes Calderon, DO - Last Filed: 06/21/22 02:18> This 61-year-old male with history of schizophrenia, chronic anticoagulation on Eliquis for history of atrial fibrillation presents status post fall, uncertain to of why patient fell Found by his mental health worker, he was alert and oriented upon initial assessment Sent here for evaluation of head injury Neurologically intact and at patient's baseline unable to recall event Of note, he does have history of schizophrenia and he is presenting at his baseline Tetanus is reportedly up-to-date Patient denies any pain complaints Secondary to age, presenting complaints, and Eliquis, CT head, cervical spine, and facial bones were ordered, case is discussed with on-call radiology for virtual radiology and patient has a fracture to his lateral vertebral body and several nasal bone fractures, radiology states that this is not unstable Case is discussed with Dr. Saleem, orthopedic trauma at [facility] and patient will need to hold Eliquis for the next 72 hours and be placed in a collar with neck immobilized is much as possible he will need cervical spine films in follow-up for reassessment The recommendation is that he have complete cervical spine films prior to an appointment, they will reach out to patient for contact Secondary to patient's baseline schizophrenia, living independently, unknown source of fall, EKG changes in lateral leads, the recommendation is that he is a dmitted for observation, patient adamantly denies any chest pain Case was discussed with Dr. Navarro, hospitalist and recommendation is to admit to trauma surgery, Dr. Espana was consulted pending acceptance for admission Patient will likely need NKA chest worker and care management involvement in this case He is agreeable to stay overnight He was given Ativan for comfort and attempt to place a collar which he is adamantly refusing at this time Unfortunately we cannot force this 61-year-old gentleman against his will to wear a cervical collar and so as the risk of patient agitation with a collar in place outweighs the benefits, he will be maintained in a supine position with his neck in appropriate position and will not be ambulatory Dr. Goddard was consulted and he recommends trauma admission, Dr. Espana is on her way for evaluation On reassessment, patient is willing to wear a soft collar which is in place Care be transitioned to Dr. Calderon pending Dr. Espana evaluation which Dr. Calderon's documentation Jovi excepted the patient for admission. I have extensively reviewed the treatment plan with the patient. I have addressed all patient concerns at this time. I have also discussed the plan with the admitting physician and they agree with the current assessment and plan and have agreed to assume responsibility for the patient. All parties demonstrate verbal understanding and agreement with our assessment and plan at this time. The documentation in this chart was dictated using [employer] dictation software. Please excuse any dictation errors. HPI <SWAPNA Crawley - Last Filed: 06/21/22 00:25> General Date/Time Provider Initiated Documentation: 06/20/22 18:39 . HPI Narrative: This 61-year-old male presents with report of fall and head injury. He was found by his mental health worker on the ground. He cannot tell me why he fell. He denies any chest pain or shortness of breath. He denies any current pain complaints. He denies any known weakness. He thinks his tetanus is up-to-date reportedly. He states he is anticoagulated. Denies any current complaints. Related Data Home Medications Medication Instructions Recorded Confirmed atorvastatin 10 mg tablet (Lipitor) 10 mg PO QPM 01/23/16 06/20/22 melatonin 3 mg tablet,extended 3 mg PO HS PRN 01/23/16 06/20/22 release thyroid (pork) 90 mg tablet 90 mg PO QAM 01/23/16 06/20/22 ([place] Thyroid) apixaban 5 mg tablet (Eliquis) 5 mg PO BID #180 tabs 07/20/17 06/20/22 sennosides 8.6 mg tablet (senna) 8.6 mg PO BID PRN 1 day 07/28/17 06/20/22 albuterol sulfate 90 mcg/actuation 2 puff inhalation Q4H PRN 03/27/19 06/20/22 aerosol inhaler (Ventolin HFA) ropinirole 1 mg tablet 1 mg PO DIRECTED 03/27/19 06/20/22 docusate sodium 100 mg capsule 200 mg PO BID PRN 11/13/20 06/20/22 furosemide 20 mg tablet 40 mg PO DAILY 08/10/21 06/20/22 metformin 1,000 mg tablet 1,000 mg PO BID 09/15/21 06/20/22 polyethylene glycol 3350 17 17 g PO BID PRN 09/15/21 06/20/22 gram/dose oral powder (Miralax) divalproex 500 mg tablet,extended 2,000 mg PO HS 09/16/21 06/20/22 release 24 hr loratadine 10 mg tablet 10 mg PO DAILY PRN 09/16/21 06/20/22 clozapine 200 mg tablet 400 mg PO HS 11/14/21 06/20/22 lorazepam 0.5 mg tablet 0.5 mg PO .QH PRN 11/14/21 06/20/22 clozapine 100 mg tablet 100 mg PO QHS 03/29/22 06/20/22 magnesium chloride 64 mg 64 mg PO DAILY #30 tabs 03/30/22 06/20/22 (magnesium chloride) tablet metoprolol succinate 25 mg 12.5 mg PO DAILY #30 tabs 03/30/22 06/20/22 tablet,extended release 24 hr triamcinolone acetonide 0.1 % 1 applic topical BID 04/17/22 06/20/22 topical cream potassium chloride 20 mEq 10 meq PO DAILY 06/20/22 06/20/22 tablet,extended release Previous Rx's Medication Instructions Recorded apixaban 5 mg tablet (Eliquis) 5 mg PO BID #180 tabs 07/20/17 magnesium chloride 64 mg 64 mg PO DAILY #30 tabs 03/30/22 (magnesium chloride) tablet metoprolol succinate 25 mg 12.5 mg PO DAILY #30 tabs 03/30/22 tablet,extended release 24 hr Allergies Allergy/AdvReac Type Severity Reaction Status Date / Time Penicillins AdvReac Intermediate black out Unverified 06/04/22 09:58 gabapentin AdvReac Mild Headache Unverified 06/04/22 09:58 niacin AdvReac Mild turn red Unverified 06/04/22 09:58 General Stated Complaint: Laceration MARY: 4 Review of Systems <SWAPNA Crawley - Last Filed: 06/21/22 00:25> All systems reviewed & are unremarkable except as noted in HPI and below PFSH <SWAPNA Crawley - Last Filed: 06/21/22 00:25> All Active Problems (Updated 06/21/22 @ 02:18 by Hermes Calderon DO) Hypothyroidism (Chronic) C1 cervical fracture (Acute) Diabetes mellitus, type 2 (Acute) Chronic schizophrenia (Acute) Ambulatory dysfunction (Acute) Atrial fibrillation with rapid ventricular response (Acute) Alteration in thought content as evidenced by delusions (Acute) BRENNEN (acute kidney injury) (Acute) Medical History (Updated 06/21/22 @ 02:18 by Hermse Calderon DO) Afib Atrial enlargement, bilateral BCC (basal cell carcinoma of skin) Bipolar 1 disorder (02/04/16) Bipolar disorder Chronic constipation Diverticulosis Facial basal cell cancer (02/04/16) Heel ulcer HTN (hypertension) HTN (hypertension) (02/04/16) Non-ST elevation AL (NSTEMI) OAB (overactive bladder) Obesity RLS (restless legs syndrome) Screening for colorectal cancer 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 (10/22/16) Urinary incontinence Vitreous floaters of right eye Weight gain (10/22/16) Surgical History Colonoscopy - MAC (01/25/16) 2011 Excision, Lipoma Hx of cholecystectomy Hydrocelectomy Tonsillectomy Family History Mother No problems noted. Father Heart disease Brother Alcohol abuse Social History Smoking/Tobacco Use Status: Current every day Tobacco Type: cigarettes Smoking risk assessment performed?: Yes Alcohol Intake: current Alcohol Intake frequency: holidays/special occasions only Alcohol type: beer and hard liquor Drug use: Current Sobriety Substance use type: does not use Current gender identity: male Do you feel safe at home: Yes Do you feel safe in your relationship?: Yes Exam <SWAPNA Crawley - Last Filed: 06/21/22 00:25> Const General: cooperative, comfortable and no acute distress [facility] Head images: 1. laceration Mouth: oral mucosae normal Other: uvula midline no hemotympanum Eyes Pupils: PERRL EOM: EOM intact bilaterally Neck Other: no midline tenderness Chest Chest: normal inspection of the chest Other: no visible signs of trauma Resp Effort & Inspection: normal respiratory effort Cardio Rate: regular rate Rhythm: regular rhythm GI Inspection: normal to inspection Skin General skin exam: no rashes or lesions noted Neuro General: patient alert and patient oriented x3 Sensory Exam: no sensory deficits noted Other: GCS15 strength Extrem Other: Ulceration noted to the dorsum of patient's right foot Neurovascularly intact, no tenderness to right knee or hip Strength and sensation intact distally Psych Appearance: disheveled Course <SWAPNA Crawley - Last Filed: 06/21/22 00:25> Vital Signs Vital signs: Vital Signs Temperature 34.5 C L 06/20/22 17:30 Pulse 100 H 06/20/22 17:30 Respiratory Rate 18 06/20/22 17:30 Blood Pressure 107/72 06/20/22 17:30 Pulse Oximetry 96 06/20/22 17:30 Temperature 36 C L 06/20/22 19:06 Temperature Source Tympanic 06/20/22 19:06 Pulse 74 06/20/22 23:17 Respiratory Rate 16 06/20/22 23:17 Blood Pressure 116/70 06/20/22 23:17 Blood Pressure Position Sitting 06/20/22 17:30 Pulse Oximetry 95 06/20/22 23:17 Oxygen Delivery Method Room Air 06/20/22 23:17 Oxygen Flow Rate 0 06/20/22 23:17 Pain Level 0 06/20/22 23:17 Lab/Test Results Lab/Test Results: Laboratory Tests Range/Units 06/20/22 06/20/22 18:55 21:20 Sodium (136-145) mmol/L 138 Potassium (3.5-5.1) mmol/L 3.8 Chloride (98-107) mmol/L 100 Carbon Dioxide (21.0-32.0) mmol/L 28.6 Anion Gap (3-11) mmol/L 9.4 BUN (7-18) mg/dL 18 Creatinine (0.70-1.30) mg/dL 1.4 H Est GFR (CKD-EPI 2020) (mL/min/1.73m2) 56.48 Glucose (74-106) mg/dL 153 H Calcium (8.5-10.1) mg/dL 9.6 Magnesium (1.8-2.4) mg/dL 1.9 Total Bilirubin (0.2-1.0) mg/dL 0.5 AST (15-37) U/L 21 ALT (16-63) U/L 34 Alkaline Phosphatase (46-116) U/L 126 H Creatine Kinase (39-308) U/L 41 Troponin I (<or=60) ng/L < 50 < 50 Total Protein (6.4-8.2) g/dL 8.5 H Albumin (3.4-5.0) g/dL 3.8 Procedures <SWAPNA Crawley - Last Filed: 06/21/22 00:25> Laceration Laceration 1: Site: face Size (cm): 5 Description: linear Depth: involves muscle layer Local Anesthetic: Lidocaine 1% and with Epi Amount of anesthesia used (mL): 8 Pre-repair: wound explored, irrigated extensively, extensive debridement and wound margins revised Skin layer closed with: vicryl Size (cm): 5-0 Number of sutures: 10 Technique: simple, interrupted Subcutaneous layer closed with: vicryl Size: 5-0 Number of sutures: 8 Technique: simple, interrupted Sign Out <SWAPNA Crawley - Last Filed: 06/21/22 00:25> Sign Out Data: Sign Out Comment: pending admission to hospital and evaluation by hospital surgeon for c1 fracture, syncope, and need for observation and likely placement Last updated by Sonya Butcher PA at 06/21/22 00:18
[2022-06-21 00:15] LABS: Abs Immature Grans 0.07 10^3/uL (0.0-0.06); Absolute Basophil Count 0.06 10^3/uL (0.0-0.2); Absolute Eosinophil Count 0.06 10^3/uL (0.0-0.7); Absolute Neutrophil Count 12.45 10^3/uL (1.2-6.7); Basophils % 0.4; Eosinophils % 0.4; HCT 53.2 % (40.0-50.0); HGB 17.7 g/dL (13.5-17.5); Immature Grans % 0.5; Lymphocytes % 12.5; MCH 30.6 pg (27.0-33.0); MCHC 33.3 % (32.0-36.0); MCV 92 fL (80-95); Monocytes % 4.8; Neutrophils % 81.4; Platelet Count 255 10^3/uL (130-400); RBC 5.78 10^6/uL (4.36-5.78); RDW 12.7 % (11.8-14.1); RDW-SD 42.5 fL
[2022-06-21 00:16] LABS: Absolute Lymphocyte Count 1.91 10^3/uL (1.2-3.4); Absolute Monocyte Count 0.73 10^3/uL (0.1-0.8)
[2022-06-21 00:25] LABS: ETHANOL BLOOD < 3.0 mg/dL (<10)
[2022-06-21 00:27] LABS: Source Nasal/Nares
--- NOTE | 2022-06-21 00:45 | HPE_ITS ---
Date of service: 06/21/22 Time of Service: 00:46 Assessment and Plan Assessment and plan (1) C1 cervical fracture: Status: Acute Assessment and plan: 61yo male found down at home yesterday by his mental health worker. Pt is a very poor historian, at [facility], and does not recall what happened. Upon evaluation in the ED, the patient denies any pain or disability. Imaging revealed a possible avulsion fracture of C1, a forehead laceration, and nasal fractures. Consult from [facility], per Sonya Yuan, recommends the patient wear a collar for 2 weeks, and then follow up in their clinic after repeat films. Also, the paient's Eliquis dose should be held for 72 hours. However, despite encouragement and the explaining the importance of maintaining a sturdy collar, the patient has been resistant, but is intermittently accepting the soft collar. The patient does not have any current guardianship, and makes decisions for himself. --I made significant and repeated emphasis to the patient that he needs to wear his neck collar because there is a break in a bone in his neck. I explained that it is stable now, but if he does not wear the collar or overexerts himself, the break could get worse. He could injure his spinal cord and could become paralyzed or . --will re-consult [facility] for any further recommendations --case management for post-discharge care coordination --will hold Eliquis for 72 hours (2) Chronic schizophrenia: Status: Acute Assessment and plan: --continue home meds (3) Atrial fibrillation with rapid ventricular response: Status: Acute Assessment and plan: --continue metoprolol for rate control\ --hold Eliquis--pt will be at increased risk for thromboembolic events History of Present Illness History of Present Illness Chief Complaint: s/p fall Narrative: NOTE: A significant part of this history was obtained from SWAPNA Daley, ED staff, as the patient is a poor historian and is well-known to the Emergency Department. This is a 61-year-old male with a history of chronic schizophrenia, atrial fibrillation on Eliquis, HLD, hypothyroid, and Type II DM, who was reportedly found down by his mental health worker last evening. He reports that he receives daily wellness checks, and that they help him coordinate his medication. The patient, at baseline, is a poor historian, and has no recollection of the events leading up to his apparent fall, or the events of the day/ He stated, I did what I do every day but would not elaborate further. Pt has no complaints except that he wants to go home. He denies any pain, numbness/tingling, or disability at this time. Nursing reports that he refused previous attempts to place a supportive collar, and removed it himself. He has intermittently accepted placement of a soft collar. The Emergency Department has been emphasizing to him the importance of wearing the collar Review of Systems Eyes Eyes: Denies blurry vision, Denies change in vision, Denies diplopia, Denies loss of vision, Denies photophobia and Denies spots in vision ENT Ears, Nose, Mouth, and Throat: Denies dysphagia, Denies dizziness, Reports nasal trauma, Denies neck pain and Denies odynophagia Cardiovascular Cardiovascular: Denies chest pain, Reports syncope, Denies rapid heart rate and Denies dyspnea Respiratory Respiratory: Denies dyspnea Gastrointestinal Gastrointestinal: Denies abdominal pain, Denies change in bowel habits, Denies change in stool character, Denies coffee ground emesis, Reports constipation, Denies dysphagia, Denies heartburn and Denies odynophagia Genitourinary Genitourinary: Denies difficulty urinating Musculoskeletal Musculoskeletal: Denies deformity, Denies neck pain, Denies numbness and Denies tingling Neurologic Neurologic: Reports confusion, Denies dizziness, Reports syncope, Denies loss of vision, Denies numbness and Denies tingling Psychiatric Psychiatric: Reports confusion, Reports irritability and Reports mood swings PFSH All Active Problems (Updated 06/21/22 @ 02:18 by Hermes Calderon DO) Hypothyroidism (Chronic) C1 cervical fracture (Acute) Diabetes mellitus, type 2 (Acute) Chronic schizophrenia (Acute) Ambulatory dysfunction (Acute) Atrial fibrillation with rapid ventricular response (Acute) Alteration in thought content as evidenced by delusions (Acute) BRENNEN (acute kidney injury) (Acute) Medical History (Updated 06/21/22 @ 02:18 by Hermes Calderon DO) Afib Atrial enlargement, bilateral BCC (basal cell carcinoma of skin) Bipolar 1 disorder (02/04/16) Bipolar disorder Chronic constipation Diverticulosis Facial basal cell cancer (02/04/16) Heel ulcer HTN (hypertension) HTN (hypertension) (02/04/16) Non-ST elevation [place] (NSTEMI) OAB (overactive bladder) Obesity RLS (restless legs syndrome) Screening for colorectal cancer 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 (10/22/16) Urinary incontinence Vitreous floaters of right eye Weight gain (10/22/16) Surgical History Colonoscopy - MAC (01/25/16) 2011 Excision, Lipoma Hx of cholecystectomy Hydrocelectomy Tonsillectomy Family History Mother No problems noted. Father Heart disease Brother Alcohol abuse Social History Smoking/Tobacco Use Status: Current every day Tobacco Type: cigarettes Smoking risk assessment performed?: Yes Alcohol Intake: current Alcohol Intake frequency: holidays/special occasions only Alcohol type: beer and hard liquor Drug use: Current Sobriety Substance use type: does not use Current gender identity: male Do you feel safe at home: Yes Do you feel safe in your relationship?: Yes Meds Allergies and Home Medications Allergies Allergy/AdvReac Type Severity Reaction Status Date / Time Penicillins AdvReac Intermediate black out Unverified 06/04/22 09:58 gabapentin AdvReac Mild Headache Unverified 06/04/22 09:58 niacin AdvReac Mild turn red Unverified 06/04/22 09:58 Home Medications Medication Instructions Recorded Confirmed Type atorvastatin 10 mg tablet (Lipitor) 10 mg PO QPM 01/23/16 06/20/22 History melatonin 3 mg tablet,extended 3 mg PO HS PRN 01/23/16 06/20/22 History release thyroid (pork) 90 mg tablet 90 mg PO QAM 01/23/16 06/20/22 History ([place] Thyroid) apixaban 5 mg tablet (Eliquis) 5 mg PO BID #180 tabs 07/20/17 06/20/22 Rx sennosides 8.6 mg tablet (senna) 8.6 mg PO BID PRN 1 day 07/28/17 06/20/22 History albuterol sulfate 90 mcg/actuation 2 puff inhalation Q4H PRN 03/27/19 06/20/22 History aerosol inhaler (Ventolin HFA) ropinirole 1 mg tablet 1 mg PO DIRECTED 03/27/19 06/20/22 History docusate sodium 100 mg capsule 200 mg PO BID PRN 11/13/20 06/20/22 History furosemide 20 mg tablet 40 mg PO DAILY 08/10/21 06/20/22 History metformin 1,000 mg tablet 1,000 mg PO BID 09/15/21 06/20/22 History polyethylene glycol 3350 17 17 g PO BID PRN 09/15/21 06/20/22 History gram/dose oral powder (Miralax) divalproex 500 mg tablet,extended 2,000 mg PO HS 09/16/21 06/20/22 History release 24 hr loratadine 10 mg tablet 10 mg PO DAILY PRN 09/16/21 06/20/22 History clozapine 200 mg tablet 400 mg PO HS 11/14/21 06/20/22 History lorazepam 0.5 mg tablet 0.5 mg PO .QH PRN 11/14/21 06/20/22 History clozapine 100 mg tablet 100 mg PO QHS 03/29/22 06/20/22 History magnesium chloride 64 mg 64 mg PO DAILY #30 tabs 03/30/22 06/20/22 Rx (magnesium chloride) tablet metoprolol succinate 25 mg 12.5 mg PO DAILY #30 tabs 03/30/22 06/20/22 Rx tablet,extended release 24 hr triamcinolone acetonide 0.1 % 1 applic topical BID 04/17/22 06/20/22 History topical cream potassium chloride 20 mEq 10 meq PO DAILY 06/20/22 06/20/22 History tablet,extended release Exam Const General: comfortable, anxious, combative and disheveled Orientation: alert, awake and oriented x3 Limitations: behavioral limitations [facility] Head: no palpable skull fracture and laceration (~4cm sutured laaceration over orbital ridge) General nose exam: epistaxis (dried blood in bilateral nares) Eyes Alignment and Position: alignment normal EOM: EOM intact bilaterally Neck Neck: trachea midline, supple, no anterior neck swelling, nontender (no cervical tenderness; ) and other (soft collar in place) Chest Other: no chest wall tenderness or deformity noted Resp Effort & Inspection: normal respiratory effort, able to speak in complete sentences, no audible wheezes, no grunting, not labored and no nasal flaring Auscultation: clear to auscultation bilaterally Cardio Rate: regular rate Rhythm: abnormal rhythm GI Inspection: obesity and scar (healed right subcostal and supraumbilical incisions) Palpation: soft, not firm, no guarding, not rigid and nontender Percussion: normal to percussion Auscultation: normal bowel sounds Back/Spine/Pelvis Back: No no CVA tenderness and No back tenderness Cervical Spine: collar present, No pain with cervical ROM (pt urged not to move neck, but no pain present when he did voluntarily), No cervical spasm, No cervical spinal tenderness and No step off deformity Thoracic/Lumbar Spine: No paraspinal tenderness, No thoracic spinal tenderness and No lumbar spinal tenderness Neuro General: patient alert, patient awake, patient oriented x3, tone normal, moves all extremities and focal motor deficits present Cognition: abnormal cognition Motor: strength 5/5 throughout, no movement abnormalities noted and no fasciculations Extrem General: no clubbing, cyanosis or edema, no calf tenderness and no pedal edema Psych Appearance: disheveled Mental Status: other (awake, alert;) Speech and Movement: agitated Mood: labile mood, irritable mood and other (awake, alert;) Affect: labile affect and irritable affect Thought Process: impoverished Insight: limited and poor Judgment: limited and poor Results Imaging Chest x-ray: report reviewed, image reviewed and other (MPRESSION: 1. O pacities in the left base may represent atelectasis or pneumonia.. 2. Mild left pleural effusion.) Imaging Studies: CT HEAD?MAXILLOFACIAL?NECK (06/20/2022): COMPARISON: CT HEAD WO 06/04/2022 10:14 AM FINDINGS: Brain: There is moderate diffuse heterogeneity of the white matter attenuation, consistent with chronic white matter microangiopathic ischemic changes. There is moderate diffuse cerebral atrophy present. There is no evidence of intracranial hemorrhage. There is no evidence of acute intracranial injury or other pathologic process. There is no evidence of an acute ischemic event. Cerebral ventricles: The ventricular system demonstrates mild diffuse compensatory enlargement. Paranasal sinuses: There is no evidence of fluid levels, mucoperiosteal thickening, or opacification to suggest acute or chronic sinusitis. Mastoid air cells: The mastoid aircells are normal. Orbital cavities: The orbits are normal without evidence of fracture. There is no evidence of retro-bulbar hemorrhage. There is no evidence of globe or lens injury. Bones/joints: There is a fracture of the nasal bones. The bony cranium shows no evidence of injury or other acute pathologic processes. Soft tissues: There is a laceration and soft tissue swelling at the frontal region and nasal region. The extracranial soft tissues are normal. Vasculature: Vascular calcifications seen consistent with chronic atherosclerotic cerebrovascular disease. IMPRESSION: 1. No evidence of an acute intracranial abnormality. 2. There is moderate age-related atrophy and chronic white matter ischemic changes, with compensatory ventricular dilation. 3. There is a fracture of the nasal bones. 4. There is a laceration and soft tissue swelling at the frontal region and nasal region. PROCEDURE INFORMATION: Exam: CT Maxillofacial Without Contrast Exam date and time: 06/20/2022 7:22 PM Age: 61 years old Clinical indication: Injury or trauma; Blunt trauma (contusions or hematomas); Consciousness not specified; Forehead and nose; Injury details: Fall, hi TECHNIQUE: Imaging protocol: Computed tomography of the face without contrast. Radiation optimization: All CT scans at this facility use at least one of these dose optimization techniques: automated exposure control; mA and/or kV adjustment per patient size (includes targeted exams where dose is matched to clinical indication); or iterative reconstruction. COMPARISON: CT HEAD WO 06/04/2022 10:14 AM FINDINGS: Orbital cavities: The orbits are normal without evidence of fracture. There is no evidence of retro-bulbar hemorrhage. There is no evidence of globe or lens injury. Bones/joints: The bony cranium shows no evidence of injury or other acute pathologic processes. Paranasal sinuses: Probable osteoma present within the right sinus. Mucoperiosteal thickening consistent with chronic sinusitis. No air-fluid levels to suggest evidence of acute sinusitis. Mastoid air cells: The mastoid aircells are normal. Soft tissues: The extracranial soft tissues are normal. Vasculature: Vascular calcifications seen consistent with chronic atherosclerotic cerebrovascular disease. Brain: There is mild diffuse heterogeneity of the white matter attenuation, consistent with chronic white matter microangiopathic ischemic changes. There is [id number] diffuse cerebral atrophy present. There is no evidence of intracranial hemorrhage. There is no evidence of acute intracranial injury or other pathologic process. There is no evidence of an acute ischemic event. Cerebral ventricles: The ventricular system demonstrates mild diffuse compensatory enlargement. Dental: There is poor dentition with multiple missing teeth and active dental caries. There is a periapical abscess present within the left anterior lower alveolar ridge. IMPRESSION: 1. No evidence of an acute intracranial abnormality. 2. There is moderate age-related atrophy and chronic white matter ischemic changes, with compensatory ventricular dilation. 3. There is poor dentition with multiple missing teeth and active dental caries. There is a periapical abscess present within the left anterior lower alveolar ridge. PROCEDURE INFORMATION: Exam: CT Cervical Spine Without Contrast Exam date and time: 06/20/2022 7:22 PM Age: 61 years old Clinical indication: Injury or trauma; Blunt trauma (contusions or hematomas); Consciousness not specified; Forehead and nose; Injury details: Fall, hi TECHNIQUE: Imaging protocol: Computed tomography of the cervical spine without contrast. Radiation optimization: All CT scans at this facility use at least one of these dose optimization techniques: automated exposure control; mA and/or kV adjustment per patient size (includes targeted exams where dose is matched to clinical indication); or iterative reconstruction. COMPARISON: CT HEAD CERVICAL SPINE WO 09/03/2021 4:06 AM FINDINGS: Bones/joints: Probable avulsion fracture of the left lateral mass of C1. There is a nonspecific reversal of the normal cervical lordosis. This may represent paravertebral muscle spasm versus positioning. Clinical correlation recommended. There is no evidence of acute vertebral body element or posterior vertebral element fracture. The anterior posterior borders of the vertebral bodies are in good alignment. No evidence of acute subluxation. There are moderate degenerative changes of the cervical spine. There are moderate to severe degenerative changes of the facets bilaterally. There is no evidence of acute disc injury. The spinal canal and cord are otherwise normal.. The visualized portions of the skull base and brain are unremarkable. Lungs: The visualized portions of the lung apices are unremarkable. Lymph nodes: There is no evidence of lymphadenopathy. Soft tissues: The prevertebal, paravertebral, pharyngeal, hypopharyngeal, and laryngeal soft tissue structures are unremarkable. Other findings: Mild neurforaminal narrowing secondary to degenerative changes present. Mild narrowing of the central spinal canal secondary to degenerative changes. IMPRESSION: 1. Probable avulsion fracture of the left lateral mass of C1. 2. There is a nonspecific reversal of the normal cervical lordosis. This may represent paravertebral muscle spasm versus positioning. Clinical correlation recommended. 3. The anterior posterior borders of the vertebral bodies are in good alignment. No evidence of acute subluxation. 4. There are moderate degenerative changes of the cervical spine. 5. There is no evidence of acute disc injury. Dictated and Authenticated by: Rudy Rodríguez MD. Ordering:ZAIRE Hassan MD Labs Result diagrams: 06/21/22 05:47 06/21/22 05:37 Labs: Laboratory Results - last 24 hr 06/20/22 06/20/22 06/20/22 18:30 18:55 21:20 WBC 15.30 H RBC 5.78 Hgb 17.7 H Hct 53.2 H MCV 92 MCH 30.6 MCHC 33.3 RDW 12.7 Plt Count 255 MPV 12.0 H Immature Gran % 0.5 Neutrophils % 81.4 Lymphocytes % 12.5 Monocytes % 4.8 Eosinophils % 0.4 Basophils % 0.4 Nucleated RBC % 0.0 Absolute Neutrophils 12.45 H Absolute Lymphocytes 1.91 Absolute Monocytes 0.73 Absolute Eosinophils 0.06 Absolute Basophils 0.06 Sodium 138 Potassium 3.8 Chloride 100 Carbon Dioxide 28.6 Anion Gap 9.4 BUN 18 Creatinine 1.4 H Est GFR (CKD-EPI 2020) 56.48 Glucose 153 H Calcium 9.6 Magnesium 1.9 Total Bilirubin 0.5 AST 21 ALT 34 Alkaline Phosphatase 126 H Creatine Kinase 41 Troponin I < 50 < 50 Total Protein 8.5 H Albumin 3.8 Ethyl Alcohol COVID-19 Source 06/20/22 06/21/22 21:30 00:25 WBC RBC Hgb Hct MCV MCH MCHC RDW Plt Count MPV Immature Gran % Neutrophils % Lymphocytes % Monocytes % Eosinophils % Basophils % Nucleated RBC % Absolute Neutrophils Absolute Lymphocytes Absolute Monocytes Absolute Eosinophils Absolute Basophils Sodium Potassium Chloride Carbon Dioxide Anion Gap BUN Creatinine Est GFR (CKD-EPI 2020) Glucose Calcium Magnesium Total Bilirubin AST ALT Alkaline Phosphatase Creatine Kinase Troponin I Total Protein Albumin Ethyl Alcohol < 3.0 COVID-19 Source Nasal/Nares Last Vital Signs Temp 96.8 F L 06/20/22 19:06 Pulse 74 06/20/22 23:17 Resp 16 06/20/22 23:17 BP 116/70 06/20/22 23:17 Pulse Ox 95 06/20/22 23:17 Time Spent Time spent with Patient: 40-54 minutes Time was spent: preparing to see the patient(eg.review tests), obtaining and/or reviewing separately otained hiistory, referring, communicating with other health skin care specialist, indepentently interpreting results, counseling the patient and care coordination
[2022-06-21 00:57] LABS: COVID-19 PCR Negative (Negative)
[2022-06-21 01:16] VITALS: BP 131/74; PULSE 72; RESP 16; TEMP 36.6; O2SAT 98
--- NOTE | 2022-06-21 01:29 | W.MEDCONSULT ---
Date of service: 06/21/22 Time of Service: 01:29 Assessment and Plan Assessment and plan (1) C1 cervical fracture: Status: Acute Assessment and plan: Patient suffered trauma with nasal fracture and C1 cervical fracture as well as head laceration. He is being followed on the surgical service. Neurosurgery at [facility] has been consulted and recommended a cervical collar which she is only intermittently cooperating with. There is concern that he is not cognitively aware of the consequences of his injuries. (2) Diabetes mellitus, type 2: Status: Acute Assessment and plan: Patient is a type II diabetic. He currently takes metformin 1000 mg p.o. twice daily. Monitor his blood sugars before meals and consider sliding scale insulin if his blood sugars are maintaining 200 or above. (3) Chronic schizophrenia: Status: Acute Assessment and plan: He has chronic schizophrenia which is treated with clozapine 100 mg at at bedtime and divalproex 2000 mg at at bedtime. (4) Atrial fibrillation with rapid ventricular response: Status: Acute Assessment and plan: He has chronic atrial fibrillation for which she has been on Eliquis. Given his current injury the recommendations from neurosurgery is to hold the Eliquis for 72 hours and if there is no evidence of an epidural bleed consider restarting his anticoagulation. He takes metoprolol succinate 12.5 mg p.o. daily for rate control. (5) Hypothyroidism: Status: Chronic Assessment and plan: He has hypothyroidism and has been on [place] Thyroid 90 mg every morning. A TSH level should be checked. History of Present Illness History of Present Illness Chief Complaint: Fall with neck and nasal fracture, forehead laceration Narrative: This is a 61-year-old man with a history of chronic schizophrenia that lives independently. This evening he was found down by his mental health worker. He had sustained a forehead laceration as well as a contusion to his nose. In the emergency room he was found to have a C1 avulsion fracture, nasal fracture, and a 4 cm forehead laceration that was repaired. He is admitted to the surgery service as a trauma patient. Medicine was consulted for his chronic medical issues. Consults Consult date: 06/21/22 Requesting physician: Kar Espana Review of Systems Narrative: Patient is a very poor historian. He gives no details about the nature or circumstances of his fall. He says I must of hit my head on something. He is otherwise not complaining of chest pain or shortness of breath. He does not describe any antecedent illness or symptoms. PFSH All Active Problems (Updated 06/21/22 @ 01:41 by Germain Goddard MD) Hypothyroidism (Chronic) C1 cervical fracture (Acute) Diabetes mellitus, type 2 (Acute) Chronic schizophrenia (Acute) Ambulatory dysfunction (Acute) Atrial fibrillation with rapid ventricular response (Acute) Alteration in thought content as evidenced by delusions (Acute) BRENNEN (acute kidney injury) (Acute) Medical History (Updated 06/21/22 @ 01:41 by Germain Goddard MD) Afib Atrial enlargement, bilateral BCC (basal cell carcinoma of skin) Bipolar 1 disorder (02/04/16) Bipolar disorder Chronic constipation Diverticulosis Facial basal cell cancer (02/04/16) Heel ulcer HTN (hypertension) HTN (hypertension) (02/04/16) Non-ST elevation VT (NSTEMI) OAB (overactive bladder) Obesity RLS (restless legs syndrome) Screening for colorectal cancer 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 (10/22/16) Urinary incontinence Vitreous floaters of right eye Weight gain (10/22/16) Surgical History Colonoscopy - MAC (01/25/16) 2011 Excision, Lipoma Hx of cholecystectomy Hydrocelectomy Tonsillectomy Family History Mother No problems noted. Father Heart disease Brother Alcohol abuse Social History Smoking/Tobacco Use Status: Current every day Tobacco Type: cigarettes Smoking risk assessment performed?: Yes Alcohol Intake: current Alcohol Intake frequency: holidays/special occasions only Alcohol type: beer and hard liquor Drug use: Current Sobriety Substance use type: does not use Current gender identity: male Do you feel safe at home: Yes Do you feel safe in your relationship?: Yes Exam Narrative Exam Narrative: On my exam he had crusted blood around his forehead eyes and nose as well as in his mouth. His nose showed some deformity. He had a 4 cm laceration on his forehead that had been repaired. He had a soft cervical collar in place. He did not appear to have any focal neurologic deficits. Results Last Vital Signs Temp 36.6 C 06/21/22 01:16 Pulse 72 06/21/22 01:16 Resp 16 06/21/22 01:16 BP 131/74 06/21/22 01:16 Pulse Ox 98 06/21/22 01:16 Labs Result diagrams: 06/20/22 18:30 06/20/22 18:55 Labs: Laboratory Results - last 24 hr 06/20/22 06/20/22 06/20/22 18:30 18:55 21:20 WBC 15.30 H RBC 5.78 Hgb 17.7 H Hct 53.2 H MCV 92 MCH 30.6 MCHC 33.3 RDW 12.7 Plt Count 255 MPV 12.0 H Immature Gran % 0.5 Neutrophils % 81.4 Lymphocytes % 12.5 Monocytes % 4.8 Eosinophils % 0.4 Basophils % 0.4 Nucleated RBC % 0.0 Absolute Neutrophils 12.45 H Absolute Lymphocytes 1.91 Absolute Monocytes 0.73 Absolute Eosinophils 0.06 Absolute Basophils 0.06 Sodium 138 Potassium 3.8 Chloride 100 Carbon Dioxide 28.6 Anion Gap 9.4 BUN 18 Creatinine 1.4 H Est GFR (CKD-EPI 2020) 56.48 Glucose 153 H Calcium 9.6 Magnesium 1.9 Total Bilirubin 0.5 AST 21 ALT 34 Alkaline Phosphatase 126 H Creatine Kinase 41 Troponin I < 50 < 50 Total Protein 8.5 H Albumin 3.8 Ethyl Alcohol COVID-19 Source SARS-CoV-2 (PCR) 06/20/22 06/21/22 21:30 00:25 WBC RBC Hgb Hct MCV MCH MCHC RDW Plt Count MPV Immature Gran % Neutrophils % Lymphocytes % Monocytes % Eosinophils % Basophils % Nucleated RBC % Absolute Neutrophils Absolute Lymphocytes Absolute Monocytes Absolute Eosinophils Absolute Basophils Sodium Potassium Chloride Carbon Dioxide Anion Gap BUN Creatinine Est GFR (CKD-EPI 2020) Glucose Calcium Magnesium Total Bilirubin AST ALT Alkaline Phosphatase Creatine Kinase Troponin I Total Protein Albumin Ethyl Alcohol < 3.0 COVID-19 Source Nasal/Nares SARS-CoV-2 (PCR) Negative
[2022-06-21 01:53] VITALS: BP 123/83; PULSE 80; RESP 18; TEMP 35.9; O2SAT 99
[2022-06-21 06:35] LABS: Abs Immature Grans 0.06 10^3/uL (0.0-0.06); Absolute Basophil Count 0.06 10^3/uL (0.0-0.2); Absolute Lymphocyte Count 3.08 10^3/uL (1.2-3.4); Absolute Monocyte Count 0.75 10^3/uL (0.1-0.8); Absolute Neutrophil Count 8.27 10^3/uL (1.2-6.7); Basophils % 0.5; Eosinophils % 0.7; HCT 47.6 % (40.0-50.0); HGB 15.8 g/dL (13.5-17.5); Immature Grans % 0.5; MCH 30.3 pg (27.0-33.0); MCHC 33.2 % (32.0-36.0); MCV 91 fL (80-95); MPV 11.5 fL (8.0-11.0); Monocytes % 6.1; Neutrophils % 67.2; Platelet Count 227 10^3/uL (130-400); RBC 5.21 10^6/uL (4.36-5.78); RDW 12.8 % (11.8-14.1); RDW-SD 42.1 fL
[2022-06-21 06:36] LABS: Absolute Eosinophil Count 0.09 10^3/uL (0.0-0.7)
[2022-06-21 06:51] LABS: Anion Gap 15.6 mmol/L (3-11); BUN 17 mg/dL (7-18); CO2 20.4 mmol/L (21.0-32.0); CREATININE 1.2 mg/dL (0.70-1.30); Chloride 102 mmol/L (98-107); Estimated GFR 67.95 (mL/min/1.73m2); Glucose 159 mg/dL (74-106); Potassium 3.6 mmol/L (3.5-5.1); Sodium 138 mmol/L (136-145)
[2022-06-21 07:20] VITALS: BP 114/71; PULSE 90; RESP 17; TEMP 37.2; O2SAT 94
[2022-06-21] MEDS: metFORMIN 500 MG TAB 1000 MG PO ×2 (08:44→16:51)
[2022-06-21] MEDS: Metoprolol CR 25 MG TABCR 12.5 MG PO (08:44)
[2022-06-21] MEDS: Furosemide 20 MG TAB 40 MG PO (08:44)
[2022-06-21] MEDS: Normal Saline Flush 10 ML SYR IVP (13:29)
--- NOTE | 2022-06-21 13:30 | INITIAL_ITS ---
- If Service Date Differs Date of service: 06/21/22 Time of Service: 13:30 Care Management Initial Assess REASON FOR HOSPITALIZATION:: S/P fall, C1 fracture PAST MEDICAL HISTORY/PAST SURGICAL HISTORY:: All Active Problems. Hypothyroidism (Chronic). C1 cervical fracture (Acute). Diabetes mellitus, type 2 (Acute). Chronic schizophrenia (Acute). Ambulatory dysfunction (Acute). Atrial fibrillation with rapid ventricular response (Acute). Alteration in thought content as evidenced by delusions (Acute). BRENNEN (acute kidney injury) (Acute). Medical History. Afib. Atrial enlargement, bilateral. BCC (basal cell carcinoma of skin). Bipolar 1 disorder (02/04/16). Bipolar disorder. Chronic constipation. Diverticulosis. 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 Heel ulcer. HTN (hypertension). HTN (hypertension) (02/04/16). Non-ST elevation [place] (NSTEMI). OAB (overactive bladder). Obesity. RLS (restless legs syndrome). Screening for colorectal cancer. 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 (10/22/16). Urinary incontinence. Vitreous floaters of right eye. Weight gain (10/22/16). Surgical History. Colonoscopy - MAC (01/25/16). 2010. Excision, Lipoma. Hx of cholecystectomy. Hydrocelectomy. Tonsillectomy PREVIOUS FUNCTIONAL STATUS/SOCIAL/FAMILY SUPPORTS:: Judd lives alone in an apartment in [facility]. He is a [employer] client, and has twice daily medication drops through [employer] and receives meals on Wheels, but is independent with his ADL's. Judd uses [facility] private vehicle for transportation. CURRENT FUNCTIONAL STATUS:: Judd is being closely monitored by staff, and encouraged to continue to wear the recommended collar. PAULO spoke to Dr. Espana, who stated that she was very clear with Judd about the risks of him not wearing the collar, and that he should wear it consistently until he is able to have a follow up in two weeks at [facility]. PAULO contacted [employer] condenser tester, Kerri, who stated that she does not know Judd, but that she would reach out to the team to discuss having someone who knows him well come and discuss the concerns about him wearing the collar as recommended. Per RN, he has been wearing it most of the day, and was redirected when he took it off at one point. PAULO will coordinate a conversation with Judd and his [employer] ed case manager prior to discharge. CM will continue to follow. ADVANCE DIRECTIVES:: On file. Chika GARCIA Has patient been provided with info about the portal/API?: Yes Did the patient sign up for the portal?: No CODE STATUS:: Full Code INSURANCE COVERAGE / FINANCIAL ISSUES:: Medicare. Medicaid. CURRENT HOME/COMMUNITY SERVICES/EQUIPMENT:: Judd is a [employer] client, receives help with medication management and compliance. Twice daily medication drops. Uses a Walker: PRN. [facility] transportation. Receives [employer]. PRIMARY CARE PHYSICIAN:: Nisha Carrillo POTENTIAL DISCHARGE NEEDS:: Recommend [facility] Planning at the community level. Follow up with PCP and resumption of community support services. New [facility] PT/OT. [facility] transportation. PATIENT/FAMILY EDUCATION NEEDS:: Review discharge instructions, limitations, medications and plan to follow up with community providers. Discuss ask me three. ANTICIPATED BARRIERS TO DISCHARGE:: Judd is not consistently wearing the collar that was recommended by [facility]. TRANSPORTATION:: Via private vehicle [facility] PLAN:: Anticipate Judd will return home once medically cleared. He may benefit from services to support his recovery. He will resume [employer] services, including daily medication drops. He will follow up with his PCP and discharge plan of care. CM will continue to follow.
[2022-06-21] MEDS: rOPINIRole 1 MG TAB PO (16:51)
--- NOTE | 2022-06-21 18:03 | PGE_ITS ---
Date of Service Date of service: 06/21/22 Time of Service: 14:33 Assessment and Plan Assessment and plan (1) C1 cervical fracture: Status: Acute Assessment and plan: 61yo male found down at home yesterday by his mental health worker. Pt is a very poor historian, at [facility], and does not recall what happened.? Upon evaluation in the ED, the patient denies any pain or disability. Imaging revealed a possible avulsion fracture of C1, a forehead laceration, and nasal fractures. Consult from [facility] Orth[facility] spine, per Sonya Yuan, recommends the patient wear a collar for 2 weeks, and then follow up in their clinic after repeat films. Also, the paient's Eliquis dose should be held for 72 hours. However, despite encouragement and the explaining the importance of maintaining a sturdy collar, the patient has been resistant, but is intermittently accepting the soft collar.? The patient does not have any current guardianship, and makes decisions for himself. --I spoke with Dr. Tony from [facility] to assess the concern regarding the state of the fracture. I explained the patient's resistance to wearing the immobilizing collar He stated that it appears stable, but clarified the need for immobility and stability, to allow for healng,which the soft collar does not offer. After speaking with the orhopedist, I again approached the patient and very sim ply explained the patient the importance of stabilizing and immbolizing his neck. I stated if he does not wear the sturdier collar, he could become paralyzed and . He still refused the [place] collar and insisted he felt fine with the soft collar, though I explained that it does not offer adequate support. --Pt was discussed with case management for post-discharge care coordination --will hold Eliquis for 72 hours --Pt was discussed with Dr. Hickman, Hospitalist (2) Diabetes mellitus, type 2: Status: Acute Assessment and plan: Patient is a type II diabetic. He currently takes metformin 1000 mg p.o. twice daily. Monitor his blood sugars before meals and consider sliding scale insulin if his blood sugars are maintaining 200 or above. --Carb conscious diet (3) Chronic schizophrenia: Status: Acute Assessment and plan: He has chronic schizophrenia which is treated with clozapine 100 mg at at bedtime and divalproex 2000 mg at at bedtime. (4) Atrial fibrillation with rapid ventricular response: Status: Acute Assessment and plan: He has chronic atrial fibrillation for which she has been on Eliquis. Hold the Eliquis for 72 hours, and if there is no evidence of an epidural bleed consider restarting his anticoagulation. He takes metoprolol succinate 12.5 mg p.o. daily for rate control. (5) Hypothyroidism: Status: Chronic Assessment and plan: --[place] thyroid Subjective Subjective Interval history since last seen: Pt without complaints of pain, numbness, or disability. He just wants to go home. Requesting Nicorette inhaler. Exam Const General: comfortable, combative and disheveled Orientation: alert, awake and oriented x3 Limitations: behavioral limitations HENMT Head: no palpable skull fracture and laceration (~4cm sutured laaceration over orbital ridge) General nose exam: epistaxis (dried blood in bilateral nares) Eyes Alignment and Position: alignment normal EOM: EOM intact bilaterally Neck Neck: trachea midline, supple, no anterior neck swelling, nontender (no cervical tenderness; ) and other (soft collar in place) Chest Other: no chest wall tenderness or deformity noted Resp Effort & Inspection: normal respiratory effort, able to speak in complete sentences, no audible wheezes, no grunting, not labored and no nasal flaring Auscultation: clear to auscultation bilaterally Cardio Rate: regular rate Rhythm: abnormal rhythm GI Inspection: obesity and scar (healed right subcostal and supraumbilical incisions) Palpation: soft, not firm, no guarding, not rigid and nontender Percussion: normal to percussion Auscultation: normal bowel sounds Back/Spine/Pelvis Back: No no CVA tenderness and No back tenderness Cervical Spine: collar present, No pain with cervical ROM (pt urged not to move neck, but no pain present when he did voluntarily), No cervical spasm, No cervical spinal tenderness and No step off deformity Thoracic/Lumbar Spine: No paraspinal tenderness, No thoracic spinal tenderness and No lumbar spinal tenderness Neuro General: patient alert, patient awake, patient oriented x3, tone normal and moves all extremities Cognition: abnormal cognition Motor: no movement abnormalities noted and no fasciculations Extrem General: no clubbing, cyanosis or edema, no calf tenderness and no pedal edema Psych Appearance: disheveled Mental Status: other (awake, alert;) Speech and Movement: agitated Mood: labile mood, irritable mood and other (awake, alert;) Affect: labile affect and irritable affect Thought Process: impoverished Insight: limited and poor Judgment: limited and poor Objective Last Vital Signs Temp 99.0 F 06/21/22 07:20 Pulse 90 06/21/22 07:20 Resp 17 06/21/22 07:20 BP 114/71 06/21/22 07:20 Pulse Ox 94 06/21/22 07:20 Laboratory Results - last 24 hr 06/20/22 06/20/22 06/20/22 18:30 18:55 21:20 WBC 15.30 H RBC 5.78 Hgb 17.7 H Hct 53.2 H MCV 92 MCH 30.6 MCHC 33.3 RDW 12.7 Plt Count 255 MPV 12.0 H Immature Gran % 0.5 Neutrophils % 81.4 Lymphocytes % 12.5 Monocytes % 4.8 Eosinophils % 0.4 Basophils % 0.4 Nucleated RBC % 0.0 Absolute Neutrophils 12.45 H Absolute Lymphocytes 1.91 Absolute Monocytes 0.73 Absolute Eosinophils 0.06 Absolute Basophils 0.06 Sodium 138 Potassium 3.8 Chloride 100 Carbon Dioxide 28.6 Anion Gap 9.4 BUN 18 Creatinine 1.4 H Est GFR (CKD-EPI 2020) 56.48 Glucose 153 H Calcium 9.6 Magnesium 1.9 Total Bilirubin 0.5 AST 21 ALT 34 Alkaline Phosphatase 126 H Creatine Kinase 41 Troponin I < 50 < 50 Total Protein 8.5 H Albumin 3.8 Ethyl Alcohol COVID-19 Source SARS-CoV-2 (PCR) 06/20/22 06/21/22 06/21/22 21:30 00:25 05:37 WBC RBC Hgb Hct MCV MCH MCHC RDW Plt Count MPV Immature Gran % Neutrophils % Lymphocytes % Monocytes % Eosinophils % Basophils % Nucleated RBC % Absolute Neutrophils Absolute Lymphocytes Absolute Monocytes Absolute Eosinophils Absolute Basophils Sodium 138 Potassium 3.6 Chloride 102 Carbon Dioxide 20.4 L Anion Gap 15.6 H BUN 17 Creatinine 1.2 Est GFR (CKD-EPI 2020) 67.95 Glucose 159 H Calcium 9.0 Magnesium Total Bilirubin AST ALT Alkaline Phosphatase Creatine Kinase Troponin I Total Protein Albumin Ethyl Alcohol < 3.0 COVID-19 Source Nasal/Nares SARS-CoV-2 (PCR) Negative 06/21/22 05:47 WBC 12.30 H RBC 5.21 Hgb 15.8 Hct 47.6 MCV 91 MCH 30.3 MCHC 33.2 RDW 12.8 Plt Count 227 MPV 11.5 H Immature Gran % 0.5 Neutrophils % 67.2 Lymphocytes % 25.0 Monocytes % 6.1 Eosinophils % 0.7 Basophils % 0.5 Nucleated RBC % 0.0 Absolute Neutrophils 8.27 H Absolute Lymphocytes 3.08 Absolute Monocytes 0.75 Absolute Eosinophils 0.09 Absolute Basophils 0.06 Sodium Potassium Chloride Carbon Dioxide Anion Gap BUN Creatinine Est GFR (CKD-EPI 2020) Glucose Calcium Magnesium Total Bilirubin AST ALT Alkaline Phosphatase Creatine Kinase Troponin I Total Protein Albumin Ethyl Alcohol COVID-19 Source SARS-CoV-2 (PCR) Time Spent with Patient Time Spent with Patient: 35-49 minutes Time was spent: preparing to see the patient(eg.review tests), ordering medications,tests, procedures, referring, communicating with other health career guidance technician, indepentently interpreting results, counseling the patient and care coordination
[2022-06-21] MEDS: Divalproex Sodium 500 MG TAB.ER.24H 2000 MG PO (22:20)
[2022-06-21] MEDS: Triamcinolone 0.1% CR 15 GM TUBE TP (22:21)
[2022-06-21] MEDS: Atorvastatin 10 MG TAB PO (22:21)
[2022-06-21] MEDS: Melatonin 3 MG TAB PO (22:21)
[2022-06-21 23:17] VITALS: BP 100/66; PULSE 94; RESP 20; TEMP 36.9; O2SAT 92
[2022-06-22] VITALS (8 sets, daily range): BP systolic 100–127; BP diastolic 63–86; PULSE 81–100; RESP 14–20; TEMP 36.1–37; O2SAT 92–94
--- NOTE | 2022-06-22 | DI.CT_ITS ---
Exam(s) CT BRAIN NECK CTA EXAM: CT BRAIN NECK CTA CLINICAL HISTORY: cva. TECHNIQUE: Imaging Protocol: Axial CT angiography was performed with multi-slice acquisition and mu lti-planar and/or 3D reconstructions. CONTRAST MATERIAL: Intravenous: Omnipaque 350 contrast volume:85 mL COMPARISON: CT CT HEAD CERV SPINE FACIAL WO from 06/20/[address] HEAD CERVICAL SPINE WO from 06/22/2022 FINDINGS: CT Head W: Ventricles and Extra axial spaces: Normal in size and morphology for the patient's age. Hemorrhage: None. Cerebral parenchyma: No evidence of an acute territorial infarct. There are areas of decreased atten uation in the white matter consistent with small vessel ischemic disease. Midline shift: None. Brainstem/Cerebellum: Normal. Calvarium: Normal. The nasal bone fractures are again seen. Visualized Paranasal sinuses/Mastoids: Clear. Soft Tissues: Unremarkable. Enhancement: Unremarkable. CTA Neck W: Common Carotid: Right: No dissection, occlusion or significant stenosis. Left: No dissection, occlusion or significant stenosis. External Carotid: Right: No occlusion or significant stenosis. Left: No occlusion or significant stenosis. Internal Carotid: Right: No dissection, occlusion or significant stenosis. Mild atherosclerosis at the origin. Left: No dissection, occlusion or significant stenosis. Mild atherosclerosis at the origin. Vertebral Artery: Right: No dissection, occlusion or significant stenosis. There is a dominant right vertebral artery. Left: No dissection, occlusion or significant stenosis. The left vertebral artery is small. Lung Apices: Normal. Bones: Within normal limits for the patient's age. Degenerative changes are present. There is again seen reversal of the normal cervical lordosis. The avulsed fracture of the left lateral mass of C1 i s again seen. Soft Tissues: Normal. Thyroid gland: Unremarkable. CTA Brain W: Internal Carotid Arteries: Normal. Anterior Cerebral Arteries: Right: No aneurysm, occlusion or significant stenosis. There is absence of the A1 segment of the rig ht SHAHID which is an anatomic variant. Left: No aneurysm, occlusion or significant stenosis. Middle Cerebral Arteries: Right: No aneurysm, occlusion or significant stenosis. Left: No aneurysm, occlusion or significant stenosis. Posterior Cerebral Arteries: Right: No aneurysm, occlusion or significant stenosis. The right TELECOMMUNICATIONS SWITCH TECHNICIAN arises from the posterior commu nicating artery. This is a normal variant. Left: No aneurysm, occlusion or significant stenosis. Vertebral Arteries: Right: No aneurysm, occlusion or significant stenosis. Left: No aneurysm, occlusion or significant stenosis. Basilar Artery: No aneurysm, occlusion or significant stenosis. IMPRESSION: 1. No large vessel occlusion or significant stenosis on the CT angiography of the head. 2. No acute intracranial process. 3. No occlusion or significant stenosis on the CT angiography of the neck. 4. There are stable nasal bone fractures and fracture involving the left lateral mass of C1. RADIATION DOSE DELIVERED: 1,585.6mGy.cm Total DLP DATA REPOSITORY: All CT scans at this facility are submitted to the National Radiology Data Registry (NRDR) Dose Index Registry (DIR) with the [employer] (ACR). RADIATION OPTIMIZATION: All CT scans at this facility use at least one of these dose optimization te chniques: automated exposure control; mA and/or kV adjustment per patient size (includes targeted exa ms where dose is matched to clinical indication); or iterative reconstruction.
[2022-06-22 06:47] LABS: Abs Immature Grans 0.04 10^3/uL (0.0-0.06); Absolute Basophil Count 0.03 10^3/uL (0.0-0.2); Absolute Eosinophil Count 0.03 10^3/uL (0.0-0.7); Absolute Lymphocyte Count 2.36 10^3/uL (1.2-3.4); Absolute Neutrophil Count 6.86 10^3/uL (1.2-6.7); Basophils % 0.3; Eosinophils % 0.3; HGB 15.7 g/dL (13.5-17.5); Immature Grans % 0.4; Lymphocytes % 23.6; MCH 30.4 pg (27.0-33.0); MCHC 34.1 % (32.0-36.0); MCV 89 fL (80-95); MPV 11.4 fL (8.0-11.0); Neutrophils % 68.4; Platelet Count 198 10^3/uL (130-400); RBC 5.16 10^6/uL (4.36-5.78); RDW 12.7 % (11.8-14.1); RDW-SD 41.4 fL; WBC 10.02 10^3/uL (4.4-10.8)
[2022-06-22 06:52] LABS: Anion Gap 10.6 mmol/L (3-11); BUN 13 mg/dL (7-18); CO2 25.4 mmol/L (21.0-32.0); Calcium 9.6 mg/dL (8.5-10.1); Chloride 101 mmol/L (98-107); Estimated GFR 84.57 (mL/min/1.73m2); Glucose 142 mg/dL (74-106); Potassium 3.6 mmol/L (3.5-5.1); Sodium 137 mmol/L (136-145)
--- NOTE | 2022-06-22 10:21 | DI.CT_ITS ---
Exam(s) CT HEAD CERVICAL SPINE WO EXAM: CT HEAD CERVICAL SPINE WO CLINICAL HISTORY: acute mental status change, slurred speech. TECHNIQUE: Imaging Protocol: Axial computed tomography images with coronal and sagittal reformatted images were created and reviewed COMPARISON: CT CT HEAD CERV SPINE FACIAL WO from 06/20/2022 FINDINGS: The examination is limited due to patient motion artifact. CT Head: Ventricles and Extra axial spaces: Normal in size and morphology for the patient's age. Hemorrhage: None. Cerebral parenchyma: No acute territorial infarct is seen. There are areas of decreased attenuation in the white matter consistent with small vessel ischemic disease. Midline shift: None. Brainstem/Cerebellum: Normal. Calvarium: Normal. There again seen nasal bone fractures. Visualized Paranasal sinuses/Mastoids: No fluid levels are seen in the sinuses. Soft Tissues: Soft tissue swelling over the forehead is again seen. CT Cervical Spine: Bones: No acute fracture or subluxation. Multilevel degenerative changes are present. There is uncha nged reversal of the normal cervical lordosis. There has been no change in the osseous fragment asso ciated with the left lateral mass of C1. No new fracture or subluxation is seen. Soft Tissues: Unremarkable. Lung Apices: Clear. IMPRESSION: 1. No acute intracranial process. No change in appearance of the CT brain since 06/20/2022. 2. Stable probable avulsion fracture of the left lateral mass of C1. RADIATION DOSE DELIVERED: 1,649.17mGy.cm Total DLP DATA REPOSITORY: All CT scans at this facility are submitted to the National Radiology Data Registry (NRDR) Dose Index Registry (DIR) with the [employer] (ACR). RADIATION OPTIMIZATION: All CT scans at this facility use at least one of these dose optimization te chniques: automated exposure control; mA and/or kV adjustment per patient size (includes targeted exa ms where dose is matched to clinical indication); or iterative reconstruction.
--- NOTE | 2022-06-22 10:22 | W.PM.PROGNOT ---
Date of Service Date of service: 06/22/22 Time of Service: 10:22 Assessment and Plan Assessment and plan (1) Dysarthria: Status: Acute Assessment and plan: patient now w/ dysarthric speech and generalize weakness requiring two person assist to mobilize out of bed. Will get stat CT of his head to rule out ICH vs ischemic CVA. He has chronic afib for which he was on Eliquis and has been on hold since admission d/t his multiple facial trauma and cervical fracture. We will get stat CT of his head, re-evaluate his neurologic condition and discuss w/ neurology once we have results of his CT. I will also repeat CT of his c-spine. Professional time spent interviewing and examining patient, discussion of goals of care with hospital team (care management, nursing and consulting professionals) was 45 minutes. (2) C1 cervical fracture: Status: Acute Assessment and plan: Dr. Espana has been managing his cervical fracture and has been in contact w/ spine surgery at [facility] regarding management. Ideally he should be in a hard cervical collar, such as a [place] collar for at least 2 weeks or more. However, d/t his schizophrenia, he is not compliant about wearing a collar. However, this morning he has left a soft collar on. He does not seem to have any focal motor deficits of his hands or arms or focal paresis in his legs to suggest cervical cord compression. (3) Diabetes mellitus, type 2: Status: Acute Assessment and plan: currently on metformin w/ glucose monitoring; add sliding scale novolog as needed. (4) Chronic schizophrenia: Status: Acute Assessment and plan: He has chronic schizophrenia which is treated with clozapine 100 mg at at bedtime and divalproex 2000 mg at at bedtime. (5) Atrial fibrillation with rapid ventricular response: Status: Acute Assessment and plan: not currently on telemetry but has not been in rapid HR. will add telemetry given his change in mental status and dysarthric speech (6) Hypothyroidism: Status: Chronic Assessment and plan: --[place] thyroid Subjective Subjective Interval history since last seen: Patient seen w/ Dr. Espana, surgery, this morning. Patient now requiring 2 person assist to get from bed to chair, had been ambulating on his own prior to this. He now has slurred speech, and confusion. Patient complaining of headache and requesting aspirin. Exam Narrative Exam Narrative: Patient is alert, oriented to person and place, knows he is in the hospital Face w/ multiple bruises from his fall prior to his admission to the hospital. No bleeding. EOMI, however he seems to have neglect of the right side when I ask him to look to his right Speech is dysarthric but intelligible; normal facial mimetic muscle movement and normal movement of his tongue Extremities: normal ROM of both UE and hand grasps equal Legs: no focal paresis, normal hip flexion, knee flexion and extension and normal pedal dorsflexion and plantar flexion Objective Last Vital Signs Temp 36.6 C 06/22/22 07:56 Pulse 86 06/22/22 07:56 Resp 20 06/22/22 07:56 BP 114/72 06/22/22 07:56 Pulse Ox 94 06/22/22 07:56 Laboratory Results - last 24 hr 06/22/22 06/22/22 05:38 05:38 WBC 10.02 RBC 5.16 Hgb 15.7 Hct 46.0 MCV 89 MCH 30.4 MCHC 34.1 RDW 12.7 Plt Count 198 MPV 11.4 H Immature Gran % 0.4 Neutrophils % 68.4 Lymphocytes % 23.6 Monocytes % 7.0 Eosinophils % 0.3 Basophils % 0.3 Nucleated RBC % 0.0 Absolute Neutrophils 6.86 H Absolute Lymphocytes 2.36 Absolute Monocytes 0.70 Absolute Eosinophils 0.03 Absolute Basophils 0.03 Sodium 137 Potassium 3.6 Chloride 101 Carbon Dioxide 25.4 Anion Gap 10.6 BUN 13 Creatinine 1.0 Est GFR (CKD-EPI 2020) 84.57 Glucose 142 H Calcium 9.6 Time Spent with Patient Time Spent with Patient: 35-49 minutes Time was spent: preparing to see the patient(eg.review tests), obtaining and/or reviewing separately otained hiistory, ordering medications,tests, procedures, referring, communicating with other health post anesthesia care unit nurse, indepentently interpreting results and care coordination
--- NOTE | 2022-06-22 10:35 | NUR.NOTE ---
Judd was unsteady and need help to get to the chair speech was off RN Notified Nursing Note:
[2022-06-22] MEDS: metFORMIN 500 MG TAB 1000 MG PO (10:45)
[2022-06-22] MEDS: Metoprolol CR 25 MG TABCR 12.5 MG PO (10:45)
[2022-06-22] MEDS: Furosemide 20 MG TAB 40 MG PO (10:45)
--- NOTE | 2022-06-22 11:26 | DI.VRAD_ITS ---
PROCEDURE INFORMATION: Exam: CT Head Without Contrast Exam date and time: 06/22/2022 10:30 AM Age: 61 years old Clinical indication: Injury or trauma; Fall; Blunt trauma (contusions or hematomas); Altered mental status/memory loss TECHNIQUE: Imaging protocol: Computed tomography of the head without contrast. COMPARISON: CT HEAD CERV SPINE FACIAL WO 06/20/2022 7:22 PM FINDINGS: Brain: No acute intracranial hemorrhage. No mass effect or midline shift. Mild burden of scattered periventricular and subcortical white matter hypodensities, unchanged. Cerebral ventricles: Mild prominence of the ventricles and extra-axial CSF containing spaces reflecting global parenchymal volume loss, unchanged. Paranasal sinuses: Right frontal sinus osteoma. Right frontal sinus mucosal thickening. No fluid levels in the paranasal sinuses. Mastoid air cells: Visualized mastoid air cells are well aerated. Bones/joints: Comminuted nasal bone fractures are unchanged from recent comparison. Soft tissues: Forehead contusion and laceration are unchanged from recent comparison. Vasculature: Vascular calcifications. IMPRESSION: 1. No acute intracranial abnormality. 2. Mild burden of white matter changes likely reflecting sequela of chronic cerebral microangiopathy. Mild global parenchymal volume loss. 3. Redemonstration of comminuted nasal bone fractures and contusion/laceration of the forehead. PROCEDURE INFORMATION: Exam: CT Cervical Spine Without Contrast Exam date and time: 06/22/2022 10:30 AM Age: 61 years old Clinical indication: Injury or trauma; Fall; Blunt trauma (contusions or hematomas); Altered mental status/memory loss TECHNIQUE: Imaging protocol: Computed tomography of the cervical spine without contrast. COMPARISON: CT HEAD CERV SPINE FACIAL WO 06/20/2022 7:22 PM FINDINGS: Bones/joints: Unchanged from 06/20/2022 is a mildly displaced triangular ossific fragment off the left lateral mass of C1, possibly avulsion fracture, without craniocervical malalignment. Reversal of the usual cervical lordosis again noted with unchanged mild anterolisthesis of C4 on C5 related to degenerative changes. Vertebral body heights are preserved. Degenerative disc height loss with partial osseous fusion at C5-C6. Disc height loss with posterior disc osteophyte complex at C6-C7. Facet arthropathy, most severe at C3-C4 and C4-C5. Lungs: Lung apices are normal. Soft tissues: Unremarkable. IMPRESSION: Unchanged from recent comparison is a probable avulsion fracture of the left lateral mass of C1. Moderate to advanced multilevel cervical spondylosis again noted. Dictated and Authenticated by: Lori Espitia MD. Ordering:[facility] Vick Narvaez MD
[2022-06-22] MEDS: Omnipaque 350 MG/ML 100 ML BTL IJ ×2 (12:20→12:21)
--- NOTE | 2022-06-22 12:20 | PGE_ITS ---
Date of Service Date of service: 06/22/22 Time of Service: 10:49 Assessment and Plan Assessment and plan (1) Dysarthria: Status: Acute Assessment and plan: New finding of dysarthria, and decreased transfer ability this morning. Pt was evaluated with Dr. Hickman, and a CT head and neck ordered per stroke protocol. No new findings were encountered on imaging. Upon re-evaluation, a left facial droop was demonstrated. No other focal deficits and hemiiparetic qualities demonstrated. CTA of head and neck ordered. Given hx of afib, with Eliquis on hold per spine trauma, he is at risk for a thromboembolic event. (2) C1 cervical fracture: Status: Acute Assessment and plan: 61yo male with C1 avulsion fracture. He is still resistent to wearing immobilization collar, but is wearing soft collar fairly consistently. --immobilzation collar once again recommeded to the patient; I explained that he could lose the use of his arms and legs, or could , if there is further damage to his spine --Pt was discussed with case management for post-discharge care coordination --will hold Eliquis for 72 hours --Pt was discussed with Dr. Hickman, Hospitalist (3) Diabetes mellitus, type 2: Status: Acute Assessment and plan: Patient is a type II diabetic. He currently takes metformin 1000 mg p.o. twice daily. Monitor his blood sugars before meals and consider sliding scale insulin if his blood sugars are maintaining 200 or above. --Carb conscious diet (4) Chronic schizophrenia: Status: Acute Assessment and plan: He has chronic schizophrenia which is treated with clozapine 100 mg at at bedtime and divalproex 2000 mg at at bedtime. (5) Atrial fibrillation with rapid ventricular response: Status: Acute Assessment and plan: He has chronic atrial fibrillation for which she has been on Eliquis. Hold the Eliquis for 72 hours, and if there is no evidence of an epidural bleed consider restarting his anticoagulation. He takes metoprolol succinate 12.5 mg p.o. daily for rate control. (6) Hypothyroidism: Status: Chronic Assessment and plan: --[place] thyroid Subjective Subjective Interval history since last seen: Nursing reported change in neuro status this morning upon the patient waking up. They reported garbled speech, and that he required 2-person assist for transfer from his bed. Yesterday he was able to mobilize out of bed on his own. The patient denies any pain, headache, or dizziness. Exam Const General: comfortable and disheveled Orientation: alert, awake and oriented x3 Limitations: behavioral limitations [facility] Head: no palpable skull fracture and laceration (~4cm sutured laaceration over orbital ridge) General nose exam: epistaxis (dried blood in bilateral nares) Neck Neck: trachea midline, supple, no anterior neck swelling, nontender (no cervical tenderness; ) and other (soft collar in place) Chest Other: no chest wall tenderness or deformity noted Resp Effort & Inspection: normal respiratory effort, able to speak in complete sentences, no audible wheezes, no grunting, not labored and no nasal flaring Auscultation: clear to auscultation bilaterally Cardio Rate: regular rate Rhythm: abnormal rhythm GI Inspection: obesity and scar (healed right subcostal and supraumbilical incisions) Palpation: soft, not firm, no guarding, not rigid and nontender Percussion: normal to percussion Auscultation: normal bowel sounds Back/Spine/Pelvis Cervical Spine: collar present, No pain with cervical ROM (pt urged not to move neck, but no pain present when he did voluntarily), No cervical spasm, No cervical spinal tenderness and No step off deformity Neuro General: patient alert, patient awake, patient oriented x3 and moves all extremities Cranial Nerves: tongue midline Cognition: abnormal cognition Speech: abnormal speech (Pt with new dysarthric speech) garbled Motor: no pronator drift and other (strength equal bilaterally--no hemiparesis) Other: slight left-sided facial droop Extrem General: no calf tenderness and no pedal edema Psych Appearance: disheveled Mental Status: other (awake, alert;) Mood: labile mood and other (awake, alert;) Affect: labile affect Thought Process: impoverished Insight: limited and poor Judgment: limited and poor Objective Last Vital Signs Temp 97.0 F L 06/22/22 11:41 Pulse 96 H 06/22/22 11:41 Resp 20 06/22/22 11:41 BP 113/75 06/22/22 11:41 Pulse Ox 92 06/22/22 11:41 Laboratory Results - last 24 hr 06/22/22 06/22/22 05:38 05:38 WBC 10.02 RBC 5.16 Hgb 15.7 Hct 46.0 MCV 89 MCH 30.4 MCHC 34.1 RDW 12.7 Plt Count 198 MPV 11.4 H Immature Gran % 0.4 Neutrophils % 68.4 Lymphocytes % 23.6 Monocytes % 7.0 Eosinophils % 0.3 Basophils % 0.3 Nucleated RBC % 0.0 Absolute Neutrophils 6.86 H Absolute Lymphocytes 2.36 Absolute Monocytes 0.70 Absolute Eosinophils 0.03 Absolute Basophils 0.03 Sodium 137 Potassium 3.6 Chloride 101 Carbon Dioxide 25.4 Anion Gap 10.6 BUN 13 Creatinine 1.0 Est GFR (CKD-EPI 2020) 84.57 Glucose 142 H Calcium 9.6 Objective Narrative Objective Narrative: CT Head/Neck (06/22/2022): COMPARISON: CT HEAD CERV SPINE FACIAL WO 06/20/2022 7:22 PM FINDINGS: Brain: No acute intracranial hemorrhage. No mass effect or midline shift. Mild burden of scattered periventricular and subcortical white matter hypodensities, unchanged. Cerebral ventricles: Mild prominence of the ventricles and extra-axial CSF containing spaces reflecting global parenchymal volume loss, unchanged. Paranasal sinuses: Right frontal sinus osteoma. Right frontal sinus mucosal thickening. No fluid levels in the paranasal sinuses. Mastoid air cells: Visualized mastoid air cells are well aerated. Bones/joints: Comminuted nasal bone fractures are unchanged from recent comparison. Soft tissues: Forehead contusion and laceration are unchanged from recent comparison. Vasculature: Vascular calcifications. IMPRESSION: 1. No acute intracranial abnormality. 2. Mild burden of white matter changes likely reflecting sequela of chronic cerebral microangiopathy. Mild global parenchymal volume loss. 3. Redemonstration of comminuted nasal bone fractures and contusion/laceration of the forehead. PROCEDURE INFORMATION: Exam: CT Cervical Spine Without Contrast Exam date and time: 06/22/2022 10:30 AM Age: 61 years old Clinical indication: Injury or trauma; Fall; Blunt trauma (contusions or hematomas); Altered mental status/memory loss TECHNIQUE: Imaging protocol: Computed tomography of the cervical spine without contrast. COMPARISON: CT HEAD CERV SPINE FACIAL WO 06/20/2022 7:22 PM FINDINGS: Bones/joints: Unchanged from 06/20/2022 is a mildly displaced triangular ossific fragment off the left lateral mass of C1, possibly avulsion fracture, without craniocervical malalignment. Reversal of the usual cervical lordosis again noted with unchanged mild anterolisthesis of C4 on C5 related to degenerative changes. Vertebral body heights are preserved. Degenerative disc height loss with partial osseous fusion at C5-C6. Disc height loss with posterior disc osteophyte complex at C6-C7. Facet arthropathy, most severe at C3-C4 and C4-C5. Lungs: Lung apices are normal. Soft tissues: Unremarkable. IMPRESSION: Unchanged from recent comparison is a probable avulsion fracture of the left lateral mass of C1. Moderate to advanced multilevel cervical spondylosis again noted. Time Spent with Patient Time Spent with Patient: >50 minutes Time was spent: preparing to see the patient(eg.review tests), obtaining and/or reviewing separately otained hiistory, ordering medications,tests, procedures, referring, communicating with other health physician primary care sports medicine, indepentently interpreting results, counseling the patient and care coordination
--- NOTE | 2022-06-22 13:00 | PT.INIE ---
Date of service: 06/22/22 Time of Service: 13:00 PT Notes Visit Reasons: S/P FALL, C1 FRACTURE Physical Therapy Inpatient Initial Evaluation Date: 06/22/2022 Referring Doctor: Brice Hickman MD PT Orders: PT CONSULT:Fall Safety assessment Precautions: Fall. Standard. [place] cervical collar on at all times for the next 2 weeks per [facility] recommendation. Patient Profile/Admitting Diagnosis:? Judd is a 61-year-old male with chronic schizophrenia who was brought to the ED on 06/20/2022 due to an unwitnessed fall. Patient was found on the floor when mental health staff came in during her scheduled visit. Patient sustained a suspected vulsion fracture of the lateral mass of C1, comminuted nsal bone fracture with forehead adn bilateral orbital contusions, AF with RVR, dysarthria, and hypothyroisidsm. Was ordered by Dr. Garcia to wear fracture boot on R foot for previous ankle fracture until seen for re-xray on 06/24/2022 but patient has been non-compliant. Came in to the hospital with just one shoe. PMHX: All Active Problems?(Updated 06/21/22 @ 02:18 by Hermes Calderon DO) Hypothyroidism (Chronic) C1 cervical fracture (Acute) Diabetes mellitus, type 2 (Acute) Chronic schizophrenia (Acute) Ambulatory dysfunction (Acute) Atrial fibrillation with rapid ventricular response (Acute) Alteration in thought content as evidenced by delusions (Acute) BRENNEN (acute kidney injury) (Acute) Medical History?(Updated 06/21/22 @ 02:18 by Hermes Calderon DO) Afib Atrial enlargement, bilateral BCC (basal cell carcinoma of skin) Bipolar 1 disorder (02/04/16) Bipolar disorder Chronic constipation Diverticulosis 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 Colonoscopy - MAC (01/25/16) 2011 Excision, Lipoma Hx of cholecystectomy Hydrocelectomy Tonsillectomy Social History/Home Situation: Lives alone in the basement of an apartment building with 2 stone steps to enter.? Ambulatory in the community using a single-point cane. Equipment Owned/DME: Single-point cane Subjective: Per Nurse Anali prior to PT evaluation, patient has been refusing to wear this collar. With encouragement and gentle explanation of the need for it, patient agreed to putting on [place] cervical collar with Nurse Anali stabilizing mental and suboccipital area while patient is in sitting. Patient also agreed to walk to and from the bathroom with FWW. Objective: General Observation: Seated on chair. Contusions noted on frontal, bilateral orbital and bilateral buccal areas which may be conttributing to some facial drooping. Telemetry monitoring in place. Mental Status: Alert and oriented as to person and place. Able to follow single step commands. Speech slurred 25% of the time but patient is able to ennciate well most of the time during session although responses are off-tangent and unrelated to the topic at hand. Pain: Soreness in affected areas in face, unable to quantify; DEnies pain in R foot and ankle with short distance ambulation Vital Signs: WNL as closely monitored by nursing staff, HR high of 110 bpm during session ROM: Right Upper Extremity: ? [place] WFL Left Upper Extremity:? [place] WFL Right Lower Extremity: [place] WFL Left Lower Extremity: [place] WFL Strength: Right Upper Extremity: Shoulder flexors 4-/5. Shoulder abductors 4-/5. Shoulder ER 4-/5. Shoulder IR 4-/5. Forearm pronators 4-/5. Forearm supinators 4-/5. Elbow flexors 4-/5. Elbow extensors 4-/5. Child Care Nurse weak but functional. Left Upper Extremity: Shoulder flexors 4-/5. Shoulder abductors 4-/5. Shoulder ER 4-/5. Shoulder IR 4-/5. Forearm pronators 4-/5. Forearm supinators 4-/5. Elbow flexors 4-/5. Elbow extensors 4-/5. Child Care Nurse weak but functional. Right Lower Extremity: Hip flexors 4-/5. Hip abductors 3+/5. Hip external rotators 3+/5. Hip internal rotators 3+/5. Knee flexors 3-/5. Knee extensors 3-/5. Ankle dorsiflexors/evertors 3-/5. Ankle plantarflexors/invertors 3-/5. Left Lower Extremity: Hip flexors 4-/5. Hip abductors 3+/5. Hip external rotators 3+/5. Hip internal rotators 3+/5. Knee flexors 3-/5. Knee extensors 3-/5. Ankle dorsiflexors/evertors 3-/5. Ankle plantarflexors/invertors 3-/5. Bed Mobility/Transfers: Sit to stand contact guard assist Stand to sit contact guard assist Bed to chair contact guard assist Gait: With [place] cervical collar on, patient completed 15 feet with FWW. Did not appear to need FWW walking back from bathroom back to bed with no report of pain in R ankle. No report of increased pain in affected bone in face. Balance: Static Sitting: Normal Dynamic Sitting: Normal Static Standing: Fair Dynamic Standing: Fair Special Tests: Mobility Limitations Standardized Measure [facility] 6 clicks Basic Mobility Inpatient Short Form: Raw Score: 24 ? CMS Score: 0% deficit ? ? Informed Consent/Education:? Patient was instructed in purpose of PT consult and plan of care. Agreeable to proceed with established PT POC to achieve personal goals. Assessment: Strength symmetric in B UE/LE. Speech at baseline compared to previous admissions. Able to follow single commands but can be compulsive. Needs constant reinforcement with [place] cervical collar. Will require frequent checks from nursing staff to continue to encourage collar use. Judd was able to sleep in bed with collar on after PT session. As for the fracture boot that was supposed to be worn by patient until Thursday (06/24/2022) per order of Dr. Garcia on 05/27/2023, there may be a need to have an order from hospitalist/orthopod for it. Will reach out to nurse for this. Patient however has been ambulating with no report of pain nor instability in his R foot/leg. Patient presents with clinical signs and symptoms consistent with current/admitting diagnoses that have resulted to mobility limitations, gait instability, generalized weakness, and overall ADL decline as demonstrated by the following impairment level findings: 1.? Decreased strength to BUE/LE? major muscle groups 2.? Impaired standing balance 3.? Impaired activity tolerance Impairments are contributing to the following functional limitations: 1.? Difficulty with ambulation 2.? Increased completion time for mobility ADL performance 3.? Increased risk for falls 4.? Difficulty with managing steps alone safely Patient is assessed as a 46289 moderate complexity based on the following: History: 60-year-old male with past medical history as indicated above Examination: Demonstrable impairment in strength, balance, and mobility level with underlying impairments and functional limitations as exhibited above as well as deficit score of 47 % utilizing the [facility] Mobility Inpatient Short Form Presentation: Evolving Decision Makin moderate complexity Goals: Goals X1 week 1. Supine-Sit independent with [place] collar on 2. Sit-Supine independent with [place] collar on 3. Sit-Stand independent with [place] collar on 4. Stand-Sit independent with SPC with [place] collar on 5. Bed-Chair independent with SPC with [place] collar on 6. Chair-Bed independent with SPC with [place] collar on 7.? Independent? with gait on level surface with use of SPC for at least 100 feet without report of pain nor dyspnea with [place] collar on 8.? Independent? with stair negotiation while holding onto 1? rails for at least 3 steps without report of pain nor dyspnea with [place] collar on 9. Good static and dynamic standing balance/tolerance with [place] collar on Plan of Care/Treatment Plan: 1-2x/day, 7 days/week x 1 week. Plan of care has been reviewed with the STRUCT[employer]EL [employer] providing the service under Physical Therapy direction. Initiate Physical Therapy intervention for pain management as needed, strengthening, bed mobility, transfers, gait, stairs, balance training, and use of assistive device. DISCHARGE RECOMMENDATIONS: [] ? Home with no services [] [] ? Home with services [] [] ? SNF for continued rehabilitation [] [] ? Care Home Care [] [] ? SNF versus LTC based on ability to participate and progress [] [X] Short-term SNF vs. HH PT vs. supervised home setting to reduce fall risk TREATMENT CODE/TIME: 57008 x 20 minutes, 04876 x 14 minutes beginning at 13:00 PM. Thank you for the opportunity to participate in the care of this patient. Karli Burrows PT, DPT, CLT [facility] [place]
[2022-06-22] MEDS: Aspirin 81 MG CHEW 324 MG CH (13:05)
--- NOTE | 2022-06-22 13:07 | DI.VRAD_ITS ---
PROCEDURE INFORMATION: Exam: CTA Head With Contrast, Arteriography Exam date and time: 06/22/2022 12:08 PM Age: 61 years old Clinical indication: Condition or disease; Other: CVA TECHNIQUE: Imaging protocol: Computed tomographic angiography of the head with contrast. Exam focused on the arteries. 3D rendering (Not supervised by radiologist): MIP and/or 3D reconstructed images were created by the technologist. COMPARISON: CT HEAD CERVICAL SPINE WO 06/22/2022 10:30 AM FINDINGS: ANTERIOR CIRCULATION: Right internal carotid artery: Intracranial segment is patent with no significant stenosis. No aneurysm. Right middle cerebral artery: No occlusion or significant stenosis. No aneurysm. Right anterior cerebral artery: Agenesis of the A1 segment, anatomic variant. No occlusion or significant stenosis. No aneurysm. Left internal carotid artery: Intracranial segment is patent with no significant stenosis. No aneurysm. Left middle cerebral artery: No occlusion or significant stenosis. No aneurysm. Left anterior cerebral artery: No occlusion or significant stenosis. No aneurysm. POSTERIOR CIRCULATION: Right vertebral artery: No occlusion or significant stenosis. No aneurysm. Left vertebral artery: No occlusion or significant stenosis. No aneurysm. Basilar artery: No occlusion or significant stenosis. No aneurysm. Right posterior cerebral artery: No occlusion or significant stenosis. No aneurysm. Left posterior cerebral artery: No occlusion or significant stenosis. No aneurysm. Brain: No definite mass, mass effect, or midline shift. Cerebral ventricles: No ventriculomegaly. Bones/joints: Unremarkable. No acute fracture. Soft tissues: Unremarkable. IMPRESSION: No large vessel stenosis or occlusion. PROCEDURE INFORMATION: Exam: CTA Neck With Contrast Exam date and time: 06/22/2022 12:08 PM Age: 61 years old Clinical indication: Condition or disease; Other: CVA TECHNIQUE: Imaging protocol: Computed tomographic angiography of the neck with contrast. 3D rendering (Not supervised by radiologist): MIP and/or 3D reconstructed images were created by the technologist. COMPARISON: CT HEAD CERVICAL SPINE WO 06/22/2022 10:30 AM FINDINGS: Right common carotid artery: No stenosis. No dissection or occlusion. Right internal carotid artery: No stenosis of the extracranial segment. No dissection or occlusion. Right external carotid artery: No occlusion or stenosis of the origin. Left common carotid artery: No stenosis. No dissection or occlusion. Left internal carotid artery: No stenosis of the extracranial segment. No dissection or occlusion. Left external carotid artery: No occlusion or stenosis of the origin. Right vertebral artery: No stenosis. No dissection or occlusion. Left vertebral artery: No stenosis. No dissection or occlusion. Soft tissues: Normal. No significant soft tissue swelling. Bones/joints: No acute fracture. IMPRESSION: No stenosis or occlusion. REFERENCES: NASCET CRITERIA. The degree of stenosis in the cervical segment of the internal carotid artery is based on NASCET criteria. Normal is no stenosis. Mild is less than 50% stenosis. Moderate is 50-69% stenosis. Severe is 70% to 99% stenosis. Total occlusion is no detectable patent lumen. Dictated and Authenticated by: Sumi Anders MD. Ordering:JAY Narvaez MD
[2022-06-22 13:19] LABS: Bilirubin Negative (Negative); Blood Trace-intact (Negative); Clarity Sl Cloudy (Clear); Glucose Negative (Negative); Ketones Negative (Negative); Leukocyte Esterase Negative (Negative); Nitrite Negative (Negative); Urobilinogen 0.2 EU/dL (Up TO 0.2)
[2022-06-22 13:28] LABS: Bacteria Moderate HPF (Negative); C & S Indicated? Yes; Casts Negative LPF (Negative); Crystals Negative HPF (Negative); Epithelial Cells Rare HPF (Negative); Mucus Negative (Negative); WBC 0-2 HPF (0-5)
[2022-06-22 13:34] LABS: *AMPHETAMINES SCREEN URINE Negative (Negative); *BARBITURATES SCREEN URINE Negative (Negative); *BENZODIAZEPINES SCREEN URINE Negative (Negative); Cannabinoids THC Negative (Negative); Cocaine Screen,Urine Negative (Negative); METHADONE URINE SCREEN Negative (Negative); OPIATES URINE SCREEN Negative (Negative)
[2022-06-22 13:36] LABS: Tricyclic Antidepressants Negative (Negative)
[2022-06-22] MEDS: Insulin Aspart 300 UNITS/3 ML PEN SC (16:42)
[2022-06-22] MEDS: rOPINIRole 1 MG TAB PO (16:42)
[2022-06-22] MEDS: Divalproex Sodium 500 MG TAB.ER.24H 2000 MG PO (21:12)
[2022-06-22] MEDS: Atorvastatin 40 MG TAB 80 MG PO (21:14)
[2022-06-22] MEDS: Apixaban 5 MG TAB PO (21:15)
[2022-06-23] VITALS (10 sets, daily range): BP systolic 105–135; BP diastolic 70–86; PULSE 76–106; RESP 20–24; TEMP 36.7–37.3; O2SAT 91–97
[2022-06-23 06:21] LABS: Abs Immature Grans 0.03 10^3/uL (0.0-0.06); Absolute Basophil Count 0.04 10^3/uL (0.0-0.2); Absolute Eosinophil Count 0.07 10^3/uL (0.0-0.7); Absolute Lymphocyte Count 2.15 10^3/uL (1.2-3.4); Absolute Monocyte Count 0.75 10^3/uL (0.1-0.8); Absolute Neutrophil Count 7.87 10^3/uL (1.2-6.7); Basophils % 0.4; Eosinophils % 0.6; HCT 46.1 % (40.0-50.0); HGB 15.7 g/dL (13.5-17.5); Immature Grans % 0.3; Lymphocytes % 19.7; MCH 30.4 pg (27.0-33.0); MCHC 34.1 % (32.0-36.0); MCV 89 fL (80-95); MPV 10.9 fL (8.0-11.0); Monocytes % 6.9; Neutrophils % 72.1; Platelet Count 182 10^3/uL (130-400); RBC 5.17 10^6/uL (4.36-5.78); RDW 12.8 % (11.8-14.1); RDW-SD 42.1 fL; WBC 10.91 10^3/uL (4.4-10.8)
[2022-06-23 06:34] LABS: Anion Gap 10.6 mmol/L (3-11); BUN 21 mg/dL (7-18); CO2 26.4 mmol/L (21.0-32.0); CREATININE 0.9 mg/dL (0.70-1.30); Calcium 9.5 mg/dL (8.5-10.1); Chloride 101 mmol/L (98-107); Estimated GFR 95.97 (mL/min/1.73m2); Glucose 155 mg/dL (74-106); Potassium 3.5 mmol/L (3.5-5.1); Sodium 138 mmol/L (136-145)
[2022-06-23] MEDS: Normal Saline Flush 10 ML SYR IVP (06:53)
--- NOTE | 2022-06-23 07:00 | DI.US_ITS ---
APPROVED REPORT EXAM: Comprehensive 2D, Doppler, and color-flow Echocardiogram Patient Location: In-Patient Room/Bed: 210 Senior Solutions Engineer: Paty Ceballos RDCS (AE) Indications: CVA, A Fib Other Information Study Quality: Poor. Technically limited study due to inability to position patient, uncooperative pa tient exam done supine on stretcher. Exam terminated by patient.. Conclusion Technically limited study Left ventricle appears normal in size and wall thickness. Systolic function appears overall normal, EF 60 to 65%. The right atrium and right ventricle appear mildly dilated Left atrial size is normal Mild mitral annular calcification No hemodynamically significant valvular disease was identified Wall motion Left Ventricle The left ventricle is normal size. The overall left ventricular systolic function appears normal. The re is normal left ventricular wall thickness. There is normal LV segmental wall motion. Unable to ass ess. LVEF is 60%. Right Ventricle Right ventricle appears mildly dilated Right ventricular systolic function is grossly normal. Atria The left atrium size is normal. Right atrium is mildly dilated Unable to assess. Exam had to be termi nated. Aortic Valve Aortic valve is not well visualized. Number of aortic valve leaflets could not be assessed. There is no aortic valvular stenosis. No aortic regurgitation is present. Mitral Valve There is mitral annular calcification. No evidence of mitral valve stenosis. Trace mitral regurgitat ion. Tricuspid Valve The tricuspid valve is normal in structure. There is no tricuspid valve stenosis. Trace tricuspid reg urgitation. Unable to assess PA pressure. Pulmonic Valve Pulmonic valve is not well visualized. There is no pulmonic valvular stenosis. There is no pulmonic v alvular regurgitation. Great Vessels The aortic root is normal in size. Ascending aorta is not well visualized. Aortic arch is not visuali zed. The IVC was not visualized patient terminated exam. Pericardium There is no significant pericardial effusion. 2D Dimensions IVSD d PLAX 1.01 cm M: 0.6-1.2 LV Vol A4C d MOD 79.1 mL LVPW d PLAX 1.00 cm M: 0.6 - 1.2 LA vol/ BSA A4C s A-L 27.0 mL/m2 LVID d PLAX 4.31 cm M: 4.2 - 5.8 LA Area A4C s MOD 22.35 cm2 LVDs 2.85 cm M: 2.5 - 4.0 LV EF A4C MOD 60.1 % Ao Root d 3.48 cm M: 3.1 - 3.7 RA Area A4C 23.72 cm2 RA Vol/ BSA A4C s A-L 32.1 mL/m2 LV EF Teichholz 62.1 % LV Volume Index 33.41 mL/m2 M: 34 - 74 FS 33.15 % LV Diastology MV E Vmax 0.89 (0.4-1.3 m/s) Aortic Valve LVOT Area 3.74 cm2 AoV Area Vmax 3.45 cm2 LVOT Vmax 1.17 m/s AoV Area/ BSA (Vmax) 1.46 cm2/m2 LVOT Mean Perry. 0.72 m/s CHESTER Mean Perry. 2.87 cm2 LVOT Peak Grad 5.5 mmHg CHESTER Mean Perry. Index 1.21 cm2/m2 LVOT Mean Grad 2.5 mmHg LVOT VTI 0.155 m LVOT Diam s 2.15 cm AoV Vmax 1.27 m/s Velocity Ratio 0.92 AoV Mean Perry. 0.93 m/s AoV Peak Grad 6.5 mmHg LVOT SV 57.88 mL AoV Mean Grad 3.9 mmHg AoV VTI 0.180 m AoV Area VTI 3.22 cm2 AoV Area/ BSA (VTI) 1.36 cm/m2 Mitral Valve MV DT 230 (160-240 msec) MV PHT 67 msec MV Area PHT 3.30 cm2 MV VTI 0.239 m MV Area VTI 2.42 (4.0-6.0 cm2) Pulmonary Valve PV Vmax 1.43 (0.5-1.5 m/s) RVOT Peak Gr. 2.76 mmHg PV Peak Grad 8.2 mmHg RVOT Mean Gr. 1.90 mmHg PV Mean Grad 4.8 mmHg RVOT VTI 0.125 m PV VTI 0.219 m RVOT Vmax 0.83 m/s
--- NOTE | 2022-06-23 07:49 | NUR.NOTE ---
Nursing Note: Accessed chart for [facility] billing purposes.
--- NOTE | 2022-06-23 08:00 | DI.RAD_ITS ---
Exam(s) XR ANKLE RT COMPLETE EXAM: XR ANKLE RT COMPLETE CLINICAL HISTORY: f/u fx. TECHNIQUE: 2D digital imaging was performed of the right ankle. Three images were obtained. AP, la teral and oblique views were obtained. COMPARISON: CR XR ANKLE RT COMPLETE from 05/27/2022 FINDINGS: BONES: There is again seen a distal fibular fracture. There is no change in alignment of the fractur e compared to the prior examinations. There has developed some callus formation about the fracture, however the fracture is still visualized. No new fracture is seen. No bony destructive lesion is se en. JOINTS: No change in alignment of the ankle mortise is seen. SOFT TISSUE: Mild soft tissue swelling around the ankle persists. IMPRESSION: Stable alignment of the distal fibular fracture. DATA REPOSITORY: RADIATION DOSE DELIVERED:
--- NOTE | 2022-06-23 09:25 | DI.MRI_ITS ---
Exam(s) MR BRAIN WO EXAM: MR BRAIN WO CLINICAL HISTORY: cva TECHNIQUE: Multiplanar multisequence MRI of the brain was performed. COMPARISON: CT CT BRAIN NECK CTA from 06/22/2022 FINDINGS: The examination is limited due to patient motion artifact. VENTRICLES AND EXTRA AXIAL SPACES: Normal in size and morphology for the patient's age. MIDLINE SHIFT: None. CEREBRAL PARENCHYMA: No focus of restricted diffusion to suggest acute infarct. No space-occupying le anna identified. HEMORRHAGE: None. BRAINSTEM/CEREBELLUM: Normal. CALVARIUM: Normal. VISUALIZED PARANASAL SINUSES/MASTOIDS:Clear. [place]: Normal flow void. [place]: Unremarkable. OTHER FINDINGS: None. IMPRESSION: Within the limits of the examination, no acute abnormality is identified. No evidence to suggest an acute infarct. DATA REPOSITORY:
[2022-06-23] MEDS: Insulin Aspart 300 UNITS/3 ML PEN SC ×4 (09:39→21:47)
[2022-06-23] MEDS: Metoprolol CR 25 MG TABCR 12.5 MG PO (11:41)
[2022-06-23] MEDS: Apixaban 5 MG TAB PO ×2 (11:41→20:02)
[2022-06-23] MEDS: Furosemide 20 MG TAB 40 MG PO (11:41)
--- NOTE | 2022-06-23 13:00 | W.PM.PROGNOT ---
Date of Service Date of service: 06/23/22 Time of Service: 13:09 Assessment and Plan Assessment and plan (1) Dysarthria: Status: Acute Assessment and plan: New dysarthric speech along with left facial droop noted yesterday morning along with increased difficulty with transfers. No focal paresis of his extremities. CT of the head without contrast was negative yesterday for bleed. Repeat CT of his C-spine showed stable avulsion fracture of C1. CTA of the head and neck showed no acute thrombosis. Echocardiogram was performed this morning and was a limited exam due to poor patient cooperation. LV size and wall thickness was normal with a normal systolic function with an EF of 60 to 65%. Right atrium and right ventricle appear to be mildly dilated. No hemodynamically significant valvular lesions were identified. MRI scan of the brain is pending at this time. Clinically patient has right-sided ischemic/embolic CVA, patient was resumed on his Eliquis last night after had discussion with neurology from [facility] as well as discussion with spine surgery from [facility]. Professional time spent interviewing and examining patient, discussion of goals of care with hospital team (care management, nursing and consulting professionals) was 40 minutes. (2) C1 cervical fracture: Status: Acute Assessment and plan: Avulsion fracture first cervical vertebra. No involvement of the canal. Patient not cooperating with wearing hard cervical collar (3) Diabetes mellitus, type 2: Status: Chronic Assessment and plan: Use sliding scale insulin per sensitive level. Add metformin on hold given his recent CTA of his head neck. We will resume his metformin tomorrow morning. Right now patient is too sedated to tolerate a diet. (4) Chronic schizophrenia: Status: Chronic Assessment and plan: He has chronic schizophrenia which is treated with clozapine 100 mg at at bedtime and divalproex 2000 mg at at bedtime. (5) Atrial fibrillation with rapid ventricular response: Status: Acute Assessment and plan: Patient is now back on his apixaban 5 mg twice a day. He is on Toprol-XL 12.5 mg daily along with as needed IV Lopressor rate has been reasonably controlled in the 90s to low 100s. (6) Hypothyroidism: Status: Chronic Assessment and plan: --[place] thyroid Subjective Subjective Interval history since last seen: Mabry been very lethargic this morning. He is arousable but only answers in single words. Speech remains dysarthric. MRI scan of the brain is pending. Neurology consult is pending. Eliquis was resumed. Rhythm remains atrial fibrillation at a controlled rate. Exam Narrative Exam Narrative: Raghavendra lethargic but arousable answers in single words not able to carry on a conversation. Goes back to sonorous respirations. HEENT is remarkable for multiple contusions to his face and lacerations with multiple bruises. Neck is currently in a hard cervical collar which she has now been compliant with wearing Lungs are clear but diminished breath sounds Heart irregular regular Abdomen soft nondistended Extremities he moves all 4 extremities to command equal hand grasp. Objective Last Vital Signs Temp 37 C 06/23/22 11:43 Pulse 96 H 06/23/22 11:43 Resp 24 06/23/22 11:43 BP 127/75 06/23/22 11:43 Pulse Ox 92 06/23/22 11:43 Laboratory Results - last 24 hr 06/22/22 06/22/22 06/22/22 05:38 12:50 12:50 WBC RBC Hgb Hct MCV MCH MCHC RDW Plt Count MPV Immature Gran % Neutrophils % Lymphocytes % Monocytes % Eosinophils % Basophils % Nucleated RBC % Absolute Neutrophils Absolute Lymphocytes Absolute Monocytes Absolute Eosinophils Absolute Basophils Sodium Potassium Chloride Carbon Dioxide Anion Gap BUN Creatinine Est GFR (CKD-EPI 2020) Glucose Hemoglobin A1c Cancelled Calcium Urine Color Yellow Urine Clarity Sl Cloudy Urine pH 6.0 Ur Specific [place] 1.010 Urine Protein Negative Urine Ketones Negative Urine Blood Trace-intact H Urine Nitrite Negative Urine Bilirubin Negative Urine Urobilinogen 0.2 Ur Leukocyte Esterase Negative Urine RBC 3-5 H Urine WBC 0-2 Ur Epithelial Cells Rare Urine Crystals Negative Urine Bacteria Moderate Urine Casts Negative Urine Mucus Negative Ur Culture Indicated? Yes Urine Glucose Negative Urine Opiates Screen Negative Urine Methadone Screen Negative Ur Barbiturates Screen Negative Ur Tricyclics Screen Negative Ur Amphetamines Screen Negative U Benzodiazepines Scrn Negative Urine Cocaine Screen Negative Ur THC Screen Negative 06/23/22 06/23/22 06:02 06:02 WBC 10.91 H RBC 5.17 Hgb 15.7 Hct 46.1 MCV 89 MCH 30.4 MCHC 34.1 RDW 12.8 Plt Count 182 MPV 10.9 Immature Gran % 0.3 Neutrophils % 72.1 Lymphocytes % 19.7 Monocytes % 6.9 Eosinophils % 0.6 Basophils % 0.4 Nucleated RBC % 0.0 Absolute Neutrophils 7.87 H Absolute Lymphocytes 2.15 Absolute Monocytes 0.75 Absolute Eosinophils 0.07 Absolute Basophils 0.04 Sodium 138 Potassium 3.5 Chloride 101 Carbon Dioxide 26.4 Anion Gap 10.6 BUN 21 H Creatinine 0.9 Est GFR (CKD-EPI 2020) 95.97 Glucose 155 H Hemoglobin A1c Calcium 9.5 Urine Color Urine Clarity Urine pH Ur Specific [place] Urine Protein Urine Ketones Urine Blood Urine Nitrite Urine Bilirubin Urine Urobilinogen Ur Leukocyte Esterase Urine RBC Urine WBC Ur Epithelial Cells Urine Crystals Urine Bacteria Urine Casts Urine Mucus Ur Culture Indicated? Urine Glucose Urine Opiates Screen Urine Methadone Screen Ur Barbiturates Screen Ur Tricyclics Screen Ur Amphetamines Screen U Benzodiazepines Scrn Urine Cocaine Screen Ur THC Screen Time Spent with Patient Time Spent with Patient: 35-49 minutes Time was spent: preparing to see the patient(eg.review tests), ordering medications,tests, procedures, referring, communicating with other health child adolescent care, indepentently interpreting results and care coordination
--- NOTE | 2022-06-23 14:40 | PHACLINREV_ITS ---
Pharmacy Admission Review - Admission Clinical Review (Last Updated 06/21/22 @ 01:36 by Germain Goddard MD) Dysarthria (Acute) C1 cervical fracture (Acute) Atrial fibrillation with rapid ventricular response (Acute) Penicillins Adverse Reaction (Intermediate, Unverified 06/04/22 09:58) black out gabapentin Adverse Reaction (Mild, Unverified 06/04/22 09:58) Headache niacin Adverse Reaction (Mild, Unverified 06/04/22 09:58) turn red Resuscitation Status Full Code Height 6 ft 4 in Weight 106.141 kg - Renal Dosing Renal Dosing: BUN 21 mg/dL (7-18) H 06/23/22 06:02 Creatinine 0.9 mg/dL (0.70-1.30) 06/23/22 06:02 Medications needing adjustments: Reviewed List of meds needing interventions: eCrCl >100 ml/min - Anticoagulation Anticoagulation: Hgb 15.7 g/dL (13.5-17.5) 06/23/22 06:02 Hct 46.1 % (40.0-50.0) 06/23/22 06:02 Plt Count 182 10^3/uL (130-400) 06/23/22 06:02 Creatinine 0.9 mg/dL (0.70-1.30) 06/23/22 06:02 Therapeutic Anticoagulation: Reviewed Medications: Apixaban - Opiate Usage Evaluate Pain Scale/Pains Meds: N/A - Relevant Labs Sodium 138 mmol/L (136-145) 06/23/22 06:02 Potassium 3.5 mmol/L (3.5-5.1) 06/23/22 06:02 Chloride 101 mmol/L (98-107) 06/23/22 06:02 Magnesium 1.9 mg/dL (1.8-2.4) 06/20/22 18:55 Electrolytes, C-Reactive P, ESR: Reviewed - DM Control DM Control: Glucose 155 mg/dL (74-106) H 06/23/22 06:02 Hemoglobin A1c Cancelled 06/22/22 05:38 Finger Stick Blood Glucose 158 Finger Stick Blood Glucose 158 Finger Stick Blood Glucose 158 Finger Stick Blood Glucose 158 Finger Stick Blood Glucose 188 Finger Stick Blood Glucose 188 Finger Stick Blood Glucose 188 Finger Stick Blood Glucose 188 DM Control: Reviewed Insulin Dosing, Diabetic Medication: aspart per SS - Cardiac Review Cardiac Review: Troponin I < 50 ng/L (<or=60) 06/20/22 21:20 BP, HR, EF%: Reviewed - Qtc Review QTc: Reviewed If Elevated, List meds needing intervention: QTc 466 on admission - IV to PO Switch IV Medications: Reviewed - Home Meds Home Med List reviewed: Intervened Relevent Home Meds Not ordered & why?: all ordered; of note: home dose of clozpaine is 500mg at HS -- tobacco use can result in reduced levels of antipsychotics especially clozapine, patient is on prn nicotine replacement HOWEVER this DDI is actually caused specifically by inhaling tobacco so it is possible while patient is admitted that he could be experiencing higher drug levels -- monitor for side effects, dose adjustment made to 200mg at HS by provider, will suggest obtaining a serum level - Current meds Current Medication Order Review: Intervened (clozapine [facility] dispence authorization confirmed on admission, note: ANC is trending down -- will m onitor)
--- NOTE | 2022-06-23 16:32 | CMPROGNOTE_ITS ---
- If Service Date Differs Date of service: 06/23/22 Time of Service: 16:32 Care Management Progress Note S/O: Judd is lethargic and unable to engage with CM today, awaiting MRI and Neuro consults. Per MD, Eliquis was restarted today. CM attempted outreach to [facility] [employer] CM: the office is closed today in observance of . Plan to discuss case specific details including compliance with collar and boot (Ortho consult) and resumption of care needs. CM continues to follow. A: 61 year old male admitted to [facility] 06/21/22 with CVA, C1 Fracture P: Awaiting medical progress. Anticipate once medically clear, Judd will return home once medically cleared. He may benefit from services to support his recovery. He will resume [employer] services, including daily medication drops. He will follow up with his PCP and discharge plan of care. CM will continue to follow.
[2022-06-23] MEDS: rOPINIRole 1 MG TAB PO (16:48)
[2022-06-23] MEDS: Divalproex Sodium 500 MG TAB.ER.24H 2000 MG PO (20:01)
[2022-06-23] MEDS: Atorvastatin 40 MG TAB 80 MG PO (20:01)
[2022-06-23] MEDS: Melatonin 3 MG TAB PO (20:02)
--- NOTE | 2022-06-23 22:23 | PGE_ITS ---
Date of Service Date of service: 06/23/22 Time of Service: :23 Assessment and Plan Assessment and plan (1) Dysarthria: Status: Acute Assessment and plan: MRI today did not find evidence of stroke, but was limited by patient mobility. (2) C1 cervical fracture: Status: Acute Assessment and plan: Pt is currently wearing [place] collar, which should remain in place for at least 2 weeks from 06/20. He is to obtain repeat images and follow up with [facility] surgery. (3) Diabetes mellitus, type 2: Status: Chronic Assessment and plan: Patient is a type II diabetic. He currently takes metformin 1000 mg p.o. twice daily. Monitor his blood sugars before meals and consider sliding scale insulin if his blood sugars are maintaining 200 or above. --Carb conscious diet (4) Chronic schizophrenia: Status: Chronic Assessment and plan: He has chronic schizophrenia which is treated with clozapine 100 mg at at bedtime and divalproex 2000 mg at at bedtime. (5) Atrial fibrillation with rapid ventricular response: Status: Acute Assessment and plan: He has chronic atrial fibrillation for which she has been on Eliquis. He takes metoprolol succinate 12.5 mg p.o. daily for rate control. (6) Hypothyroidism: Status: Chronic Assessment and plan: --[place] thyroid Subjective Subjective Interval history since last seen: Pt underwent MRI and Echo today to evaluate CVA symptoms that he began to exhibit yesterday. He also underwent an ankle x-ray today to evaluate a right ankle fracture. Eliquis was restarted secondary to reommendations by neurology and spine. Care of this patient was transferred to the Hospialist service on 06/22/2022. Exam Const General: comfortable, no acute distress, disheveled and other (found sleeping) Neck Neck: other (appropriate immobility cervical collar in place) Resp Effort & Inspection: normal respiratory effort, no grunting and no pursed lip breathing Objective Last Vital Signs Temp 98.2 F 06/23/22 19:41 Pulse 76 06/23/22 19:41 Resp 20 06/23/22 19:41 BP 105/70 06/23/22 19:41 Pulse Ox 97 06/23/22 19:41 Laboratory Results - last 24 hr 06/22/22 06/23/22 06/23/22 05:38 06:02 06:02 WBC 10.91 H RBC 5.17 Hgb 15.7 Hct 46.1 MCV 89 MCH 30.4 MCHC 34.1 RDW 12.8 Plt Count 182 MPV 10.9 Immature Gran % 0.3 Neutrophils % 72.1 Lymphocytes % 19.7 Monocytes % 6.9 Eosinophils % 0.6 Basophils % 0.4 Nucleated RBC % 0.0 Absolute Neutrophils 7.87 H Absolute Lymphocytes 2.15 Absolute Monocytes 0.75 Absolute Eosinophils 0.07 Absolute Basophils 0.04 Sodium 138 Potassium 3.5 Chloride 101 Carbon Dioxide 26.4 Anion Gap 10.6 BUN 21 H Creatinine 0.9 Est GFR (CKD-EPI 2020) 95.97 Glucose 155 H Hemoglobin A1c Cancelled Calcium 9.5 Time Spent with Patient Time Spent with Patient: <25 minutes Time was spent: preparing to see the patient(eg.review tests), referring, communicating with other health home care manager and indepentently interpreting results
[2022-06-24] VITALS (9 sets, daily range): BP systolic 110–132; BP diastolic 67–82; PULSE 79–93; RESP 17–20; TEMP 36.2–36.9; O2SAT 90–97
[2022-06-24 07:14] LABS: Abs Immature Grans 0.03 10^3/uL (0.0-0.06); Absolute Basophil Count 0.03 10^3/uL (0.0-0.2); Absolute Eosinophil Count 0.15 10^3/uL (0.0-0.7); Absolute Lymphocyte Count 2.07 10^3/uL (1.2-3.4); Absolute Monocyte Count 0.51 10^3/uL (0.1-0.8); Absolute Neutrophil Count 5.17 10^3/uL (1.2-6.7); Basophils % 0.4; Eosinophils % 1.9; HCT 46.7 % (40.0-50.0); HGB 15.7 g/dL (13.5-17.5); Immature Grans % 0.4; MCH 30.4 pg (27.0-33.0); MCHC 33.6 % (32.0-36.0); MCV 91 fL (80-95); MPV 11.3 fL (8.0-11.0); Monocytes % 6.4; Neutrophils % 64.9; Platelet Count 178 10^3/uL (130-400); RBC 5.16 10^6/uL (4.36-5.78); RDW 12.6 % (11.8-14.1); RDW-SD 41.9 fL; WBC 7.96 10^3/uL (4.4-10.8)
[2022-06-24 07:23] LABS: BUN 20 mg/dL (7-18); CREATININE 0.8 mg/dL (0.70-1.30); Calcium 9.8 mg/dL (8.5-10.1); Chloride 101 mmol/L (98-107); Estimated GFR 99.44 (mL/min/1.73m2); Glucose 127 mg/dL (74-106); Potassium 3.5 mmol/L (3.5-5.1); Sodium 139 mmol/L (136-145)
[2022-06-24] MEDS: Acetaminophen 325 MG TAB 650 MG PO (08:27)
[2022-06-24] MEDS: Metoprolol CR 25 MG TABCR 12.5 MG PO (08:29)
[2022-06-24] MEDS: Apixaban 5 MG TAB PO ×2 (08:30→20:55)
[2022-06-24] MEDS: Normal Saline Flush 10 ML SYR IVP (08:31)
--- NOTE | 2022-06-24 08:55 | PDOC.CMPRO ---
- If Service Date Differs Date of service: 06/24/22 Time of Service: 08:55 Care Management Progress Note S/O: Judd is more alert this morning; asking about the nowak to his apartment. Per PT, Judd lacks safety awareness which makes compliance difficult. Eliquis restarted. CM returned call to [employer] CM: Pamela; left VM re: compliance with collar and boot and resumption of care needs. CM continues to follow. A: 61 year old male admitted to [facility] 06/21/22 with CVA, C1 Fracture P: Awaiting medical progress. Anticipate once medically clear, Judd will return home once medically cleared. He may benefit from services to support his recovery. He will resume [employer] services, including daily medication drops. He will follow up with his PCP and discharge plan of care. CM will continue to follow.
--- NOTE | 2022-06-24 09:22 | W.ORTHOCONSU ---
Date of service: 06/24/22 Time of Service: : Assessment and Plan Assessment and plan (1) Closed right ankle fracture: Status: Resolved Assessment and plan: 61-year-old male about 6 weeks status post right mildly displaced Patel B ankle fracture Patient was scheduled for outpatient office follow-up today. Instead, he remains admitted to the hospital for other complex problems. Right ankle x-rays ordered and reviewed showing maintained distal fibula fracture alignment with good moderate healing present. Syndesmosis and ankle mortise remained stable. Patient reportedly weightbearing without any protective device prior to this admission. He may continue weightbearing as tolerated. No boot, brace, or crutches needed. Physical therapy may work on ankle range of motion, proprioception, and peroneal strengthening. He can follow-up with me in 6 weeks with repeat x-rays if there are concerns about his ankle going forward. Copy note to Dr. Hickman. [facility] All Active Problems (Updated 06/23/22 @ 13:06 by Brice Hickman MD) Dysarthria (Acute) Hypothyroidism (Chronic) C1 cervical fracture (Acute) Diabetes mellitus, type 2 (Chronic) Chronic schizophrenia (Chronic) Ambulatory dysfunction (Acute) Atrial fibrillation with rapid ventricular response (Acute) Alteration in thought content as evidenced by delusions (Acute) BRENNEN (acute kidney injury) (Acute) Medical History (Updated 06/23/22 @ 13:06 by Brice Hickman MD) Afib Atrial enlargement, bilateral BCC (basal cell carcinoma of skin) Bipolar 1 disorder (02/04/16) Bipolar disorder Chronic constipation Diverticulosis Facial basal cell cancer (02/04/16) Heel ulcer HTN (hypertension) HTN (hypertension) (02/04/16) Non-ST elevation [place] (NSTEMI) OAB (overactive bladder) Obesity RLS (restless legs syndrome) Screening for colorectal cancer 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 (10/22/16) Urinary incontinence Vitreous floaters of right eye Weight gain (10/22/16) Surgical History Colonoscopy - MAC (01/25/16) 2011 Excision, Lipoma Hx of cholecystectomy Hydrocelectomy Tonsillectomy Family History Mother No problems noted. Father Heart disease Brother Alcohol abuse Social History Smoking/Tobacco Use Status: Current every day Tobacco Type: cigarettes Smoking risk assessment performed?: Yes Alcohol Intake: current Alcohol Intake frequency: holidays/special occasions only Alcohol type: beer and hard liquor Drug use: Current Sobriety Substance use type: does not use Current gender identity: male Do you feel safe at home: Yes Do you feel safe in your relationship?: Yes Results Last Vital Signs Temp 98.4 F 06/24/22 02:25 Pulse 92 H 06/24/22 08:16 Resp 20 06/24/22 08:16 BP 122/67 06/24/22 08:16 Pulse Ox 90 L 06/24/22 08:16 Labs Result diagrams: 06/24/22 06:35 06/24/22 06:35 Labs: Laboratory Results - last 24 hr 06/22/22 06/24/22 06/24/22 05:38 06:35 06:35 WBC 7.96 RBC 5.16 Hgb 15.7 Hct 46.7 MCV 91 MCH 30.4 MCHC 33.6 RDW 12.6 Plt Count 178 MPV 11.3 H Immature Gran % 0.4 Neutrophils % 64.9 Lymphocytes % 26.0 Monocytes % 6.4 Eosinophils % 1.9 Basophils % 0.4 Nucleated RBC % 0.0 Absolute Neutrophils 5.17 Absolute Lymphocytes 2.07 Absolute Monocytes 0.51 Absolute Eosinophils 0.15 Absolute Basophils 0.03 Sodium 139 Potassium 3.5 Chloride 101 Carbon Dioxide 31.0 Anion Gap 7.0 BUN 20 H Creatinine 0.8 Est GFR (CKD-EPI 2020) 99.44 Glucose 127 H Hemoglobin A1c Cancelled Calcium 9.8
--- NOTE | 2022-06-24 09:28 | W.PM.PROGNOT ---
Date of Service Date of service: 06/24/22 Time of Service: 09:28 Assessment and Plan Assessment and plan (1) C1 cervical fracture: Status: Acute (2) Dysarthria: Status: Acute (3) Diabetes mellitus, type 2: Status: Chronic (4) Chronic schizophrenia: Status: Chronic (5) Afib: (6) Acute ischemic stroke: Status: Acute (7) Ataxia: Status: Acute (8) Discharge planning issues: Status: Acute (9) Atrial fibrillation with rapid ventricular response: Status: Acute Assessment and plan: Subjective Subjective Interval history since last seen: Patient reports feeling better and inquires about discharge. Denies dizziness, reports feeling that once he is up he can stabilize his gait but has difficulty getting up from the chair on first trial. He denies pain, chest pain or difficulty breathing. Reports eating well, tolerating his diet w/o c/o nausea denies hematemesis, hematochezia, Denies difficulty voiding Exam Narrative Exam Narrative: Patient is sitting in the chair at the time of the interview. He was arousable. He displays healing facial bloody scabs to the forehead, no drainage, no periorbital bruising, no focal neuro deficit, conjugated eye movement, PEERLA Lung are clear, S1, S2, no murmur, on telemetry, A-flutter 75- 81, trace tibial edema bilaterally Abdomen is soft, non-tender non-distended, No CVA tenderness Objective Last Vital Signs Temp 98.4 F 06/24/22 02:25 Pulse 92 H 06/24/22 08:16 Resp 20 06/24/22 08:16 BP 122/67 06/24/22 08:16 Pulse Ox 90 L 06/24/22 08:16 Laboratory Results - last 24 hr 06/22/22 06/24/22 06/24/22 05:38 06:35 06:35 WBC 7.96 RBC 5.16 Hgb 15.7 Hct 46.7 MCV 91 MCH 30.4 MCHC 33.6 RDW 12.6 Plt Count 178 MPV 11.3 H Immature Gran % 0.4 Neutrophils % 64.9 Lymphocytes % 26.0 Monocytes % 6.4 Eosinophils % 1.9 Basophils % 0.4 Nucleated RBC % 0.0 Absolute Neutrophils 5.17 Absolute Lymphocytes 2.07 Absolute Monocytes 0.51 Absolute Eosinophils 0.15 Absolute Basophils 0.03 Sodium 139 Potassium 3.5 Chloride 101 Carbon Dioxide 31.0 Anion Gap 7.0 BUN 20 H Creatinine 0.8 Est GFR (CKD-EPI 2020) 99.44 Glucose 127 H Hemoglobin A1c Cancelled Calcium 9.8
--- NOTE | 2022-06-24 10:39 | W.PM.PROGNOT ---
Date of Service Date of service: 06/24/22 Time of Service: 10:39 Assessment and Plan Assessment and plan (1) Dysarthria: Status: Acute Assessment and plan: clinically he seemed to have had CVA over the weekend however his MRI did not confirm this although imaging was limited d/t motion artifact. He seems improved now. now he is more awake, so some of his garbled speech and lethargy yesterday may have been medications, he was on high dose of clozaril 500 mg nightly which I reduced to 200 mg nightly. I will consult w/ his psychiatrist, Dr. Amezquita and what he feels would be most approprriate dosing. Irregardless he is now back on his apixaban and his afib/aflutter reate is controlled and he is fully anticoagulated. Echo did not show any intracardiac thrombus. CTA of his head and neck was negative for acute occlusion/thrombosis or dissection. He is medically stable and can be discharged. I am awaiting formal neurology consultation. Professional time spent interviewing and examining patient, discussion of goals of care with hospital team (care management, nursing and consulting professionals) was 30 minutes. (2) C1 cervical fracture: Status: Acute Assessment and plan: Avulsion fracture first cervical vertebra. No involvement of the canal. continue hard cervical collar until he is seen by [facility] [place]. (3) Afib: Assessment and plan: chronic afib/aflutter; rate is reasonable controlled on Toprol XL 12.5 mg daily (4) Diabetes mellitus, type 2: Status: Chronic Assessment and plan: patient tolerating his diet. he is now back on his metformin and glucose is 120 to 160. HbA1c is pending at this time. (5) Chronic schizophrenia: Status: Chronic Assessment and plan: Patient was on clozaril and depakote. The clozaril dose was 500 mg nightly which I reduced last night to 200 mg, however, if he had been on the higher dose and tolerating this as outpatient and if this was controlling his schizophrenia, then he may need a higher dose. I will consult w/ Dr. Amezquita, his psychiatrist to discuss appropriate dosing. (6) Hypothyroidism: Status: Chronic Assessment and plan: --[place] thyroid (7) Discharge planning issues: Status: Acute Assessment and plan: dc home soon, probably later today after I discuss his case w/ Dr. Amezquita and Dr. Gilliam. Patient will need follow up w/ [facility] [place] ortho in the next 1 to 2 weeks Subjective Subjective Interval history since last seen: Judd seems to be doing better today. His speech is clearer than it was yesterday although somewhat dysarthric. His left facial droop is not as noticeable and there is just slight weakness of the left nasolabial fold but otherwise with facial mimetic muscle movement he seems pretty good. He has no focal paresis of his hands arms or legs and no focal paresthesias over his face or his limbs. I explained to Judd that his MRI scan did not confirm stroke although the study was limited due to artifact. I explained to Judd that we are awaiting formal consultation with our neurologist but otherwise he is stable and can be discharged. Exam Narrative Exam Narrative: Judd sitting up in his chair he is much more alert today he is watching TV. Speech is still somewhat dysarthric but intelligible. Patient has his [place] hard cervical collar on although I do not think it is properly fitted to him as his chin is not fully rested in the chin rest. Lungs are clear to auscultation Heart is irregular review of rhythm shows he is in atrial flutter w/ variable RR Lungs are clear to auscultation Extremities normal range of motion and strength normal sensation to light touch over his extremities as well as over his face. Speech as noted above. Slight decrease in facial mimetic muscle movement most notable over the left nasolabial fold. Objective Last Vital Signs Temp 36.9 C 06/24/22 02:25 Pulse 92 H 06/24/22 08:16 Resp 20 06/24/22 08:16 BP 122/67 06/24/22 08:16 Pulse Ox 90 L 06/24/22 08:16 Laboratory Results - last 24 hr 06/22/22 06/24/22 06/24/22 05:38 06:35 06:35 WBC 7.96 RBC 5.16 Hgb 15.7 Hct 46.7 MCV 91 MCH 30.4 MCHC 33.6 RDW 12.6 Plt Count 178 MPV 11.3 H Immature Gran % 0.4 Neutrophils % 64.9 Lymphocytes % 26.0 Monocytes % 6.4 Eosinophils % 1.9 Basophils % 0.4 Nucleated RBC % 0.0 Absolute Neutrophils 5.17 Absolute Lymphocytes 2.07 Absolute Monocytes 0.51 Absolute Eosinophils 0.15 Absolute Basophils 0.03 Sodium 139 Potassium 3.5 Chloride 101 Carbon Dioxide 31.0 Anion Gap 7.0 BUN 20 H Creatinine 0.8 Est GFR (CKD-EPI 2020) 99.44 Glucose 127 H Hemoglobin A1c Cancelled Calcium 9.8 Time Spent with Patient Time Spent with Patient: 25-34 minutes Time was spent: preparing to see the patient(eg.review tests), ordering medications,tests, procedures, referring, communicating with other health home care administrator, indepentently interpreting results, counseling the patient and care coordination
--- NOTE | 2022-06-24 11:23 | NCONE_ITS ---
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 Discussed MRI findings with radiology who suggested we could repeat MRI brain today or tomorrow to see if T2 images change/support DWI/ADC findings on yesterday's MRI - but as this wouldn't exchange trouble shooter, I don't think it is necessary. Etiology of stroke is felt to be embolic from his paroxysmal afib and he has already been starting back on anticoagulation - apixaban 5mg BID - now out of the 72hours risk of hemorrhage per trauma. Please check updated lipid panel - continue atorvastatin. Agree with ST evaluation for dysarthria/?dysphagia along with ongoing PT/OT. He is a poor historian, but sounds like he is having lots of falls. 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 His PDism is likely contributing to falls. Will have him f/up outpatient for further evaluation/need for treatment. He will follow-up in 4-6 weeks. History of Present Illness History of Present Illness Chief Complaint: transient neurological symptoms Narrative: Handedness: right. HPI: Mr. Hathaway is a 61 year-old man with atrial fibrillation, HTN, DM2, hypothyroidism, RLS, Bipolar d/o, schizoaffective disorder, and diverticulosis. I previously met Mr. Hathaway in 2017/2017, last seen in Jul 2017 for tremor. Of note, at the last visit, he was having frequent falls including falls with injury - fracture L 5th toe; significant forearm lac, etc - with signs of Parkinsonism - attributed to his neuroleptic medications. He was brought to the ER on 06/20/22 by ambulance after he was found down at home with bruising, swelling, lacerations to face. He was unsure how he got to the ground or how long he has been there. In ER found to have nasal fractures and an apparent C1 avulsion fracture. For the latter, apixaban was held x 72hr due to risk of hemorrhage and he was placed in a hard c-collar - though he has had some compliance issues with this. On 06/22/22, he was noted to have new dysarthria and imbalance - now a 2 person assist - followed by apparent L face weakness which has now resolved - all con cerning for stroke. He underwent work-up as below. Multiple conversations with hospital team, spine at [facility], and neurology at [facility] along with patient on risks/benefits of resuming anticoagulation at [facility] 48hr duong. Decision was made to resume apixaban which he is tolerating without obvious bleed; and I agree with that decision given the circumstances.. On 06/23/22, he was somnolent throughout the day. His clozapine dose was reduced last night and he is much more alert today. He has seen by PT who note a continued ataxic gait complicated by poor decision making. ST has not evaluated him as yet. He denies dysphagia. He states his balance is back to baseline. However, he is not able to provide much history including recent R ankle fracture in May after tripping over fencing; generalized weakness in Mar for which he was briefly hospitalized found tohave low Mag... He states he lives alone with a religious educator that comes at some frequency. He has a mental health worker that delivers his medications and he gets his meals from [employer]. Work-up: -CTH (06/22/22): No acute findings. I reviewed these images personally and this is my personal interpretation. 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 I reviewed these images personally and this is my personal interpretation. -CT neck (06/22/22): Stable L C1 avulsion fx. -MRI brain w/o (06/23/22): acute L medullary infarct per my view. Complicated by motion artifact. I reviewed these images personally and this is my personal interpretation. [facility] All Active Problems (Updated 06/24/22 @ 12:14 by Marina Gilliam MD) Ataxia (Acute) Acute ischemic stroke (Acute) Discharge planning issues (Acute) Dysarthria (Acute) Hypothyroidism (Chronic) C1 cervical fracture (Acute) Diabetes mellitus, type 2 (Chronic) Chronic schizophrenia (Chronic) Ambulatory dysfunction (Acute) Atrial fibrillation with rapid ventricular response (Acute) Alteration in thought content as evidenced by delusions (Acute) BRENNEN (acute kidney injury) (Acute) Medical History (Updated 06/24/22 @ 12:14 by Marina Gilliam MD) Afib Atrial enlargement, bilateral BCC (basal cell carcinoma of skin) Bipolar 1 disorder (02/04/16) Bipolar disorder Chronic constipation Diverticulosis Facial basal cell cancer (02/04/16) Heel ulcer HTN (hypertension) HTN (hypertension) (02/04/16) Non-ST elevation [place] (NSTEMI) OAB (overactive bladder) Obesity RLS (restless legs syndrome) Screening for colorectal cancer 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 (10/22/16) Urinary incontinence Vitreous floaters of right eye Weight gain (10/22/16) Surgical History Colonoscopy - MAC (01/25/16) 2011 Excision, Lipoma Hx of cholecystectomy Hydrocelectomy Tonsillectomy Family History Mother No problems noted. Father Heart disease Brother Alcohol abuse Social History Smoking/Tobacco Use Status: Current every day Tobacco Type: cigarettes Smoking risk assessment performed?: Yes Alcohol Intake: current Alcohol Intake frequency: holidays/special occasions only Alcohol type: beer and hard liquor Drug use: Current Sobriety Substance use type: does not use Current gender identity: male Do you feel safe at home: Yes Do you feel safe in your relationship?: Yes Visit Medication and Allergies Active Medications Generic Name Dose Route Start Last Admin Trade Name Freq PRN Reason Stop Dose Admin Acetaminophen 650 mg 06/21/22 00:51 06/24/22 08:27 Acetaminophen 325 Mg Tab PO 650 mg Q4H PRN PRN Administration Pain Albuterol Sulfate 2 puff 06/21/22 07:29 Albuterol Hfa 8 Gm 60 Puff Inh IH Q4H PRN PRN Apixaban 5 mg 06/22/22 20:00 06/24/22 08:30 Apixaban 5 Mg Tab PO 5 mg BID AMEE Administration Atorvastatin Calcium 80 mg 06/22/22 20:00 06/23/22 20:01 Atorvastatin 40 Mg Tab PO 80 mg QPM AMEE Administration Clozapine 200 mg 06/23/22 22:00 06/23/22 20:01 Clozapine 100 Mg Tab PO 200 mg HS AMEE Administration Device 1 each 06/21/22 01:00 Inhaler, Assist Device MC DIRECTED AMEE Dextrose 0 gm 06/22/22 14:49 Glucose Oral Gel 15 Gm/37.5 Gm Tube PO DIRECTED PRN Dextrose/Water 0 gm 06/22/22 14:49 Dextrose 50%-Water 25 Gm/50 Ml Syr IVP DIRECTED PRN Divalproex Sodium 2,000 mg 06/21/22 22:00 06/23/22 20:01 Divalproex Sodium 500 Mg Tab.Er.24h PO 2,000 mg HS AMEE Administration Docusate Sodium 200 mg 06/21/22 07:30 Docusate Sodium 100 Mg Cap PO BID PRN PRN Furosemide 40 mg 06/21/22 08:30 06/23/22 11:41 Furosemide 20 Mg Tab PO 40 mg DAILY AMEE Administration Sodium Chloride 500 mls @ 0 mls/hr 06/21/22 00:46 Saline 500ml Bag IV PRN PRN As Directed IV Miscellaneous Supplies 1 each 06/21/22 01:00 Iv Access IV DIRECTED [facility] Insulin Aspart 0 units 06/22/22 17:00 06/24/22 08:15 Insulin Aspart 300 Units/3 Ml Pen SC Not Given 0800,1200,1700,2200 [facility] Protocol Loratadine 10 mg 06/21/22 07:30 Loratidine 10 Mg Tab PO DAILY PRN PRN Lorazepam 1 mg 06/23/22 08:00 Lorazepam 2 Mg/Ml Vial IVP ONCE PRN corporate concierge to MRI scan Melatonin 3 mg 06/21/22 07:30 06/23/22 20:02 Melatonin 3 Mg Tab PO 3 mg HS PRN PRN Administration Metformin HCl 1,000 mg 06/21/22 08:00 06/22/22 10:45 Metformin 500 Mg Tab PO 1,000 mg BID@0800,1700 AMEE Administration Metoprolol Succinate 12.5 mg 06/21/22 08:30 06/24/22 08:29 Metoprolol Cr 25 Mg Tabcr PO 12.5 mg DAILY AMEE Administration Metoprolol Tartrate 2.5 mg 06/23/22 13:06 Metoprolol 5 Mg/5 Ml Vial IVP Q1H PRN PRN Nicotine 0 cartridge 06/21/22 10:14 06/24/22 08:30 Nicotine 10 Mg/Cartridge 30 Cart/Pkg IH 1 cartridge Q2H PRN PRN Administration Ondansetron HCl 4 mg 06/21/22 00:46 Ondansetron 4 Mg/2 Ml Vial IVP Q4H PRN PRN Polyethylene Glycol 17 gm 06/21/22 07:28 Polyethylene Glycol 3350 17 Gm Packet PO BID PRN PRN Ropinirole HCl 1 mg 06/21/22 16:00 06/23/22 16:48 Ropinirole 1 Mg Tab PO 1 mg 1600 AMEE Administration Sennosides 1 tab 06/21/22 07:31 Senna Tab PO BID PRN PRN Sodium Chloride 0 ml 06/21/22 00:46 06/24/22 08:31 Normal Saline Flush 10 Ml Syr IVP 10 ml PRN PRN Administration Thyroid 90 mg 06/21/22 07:00 06/24/22 08:29 Thyroid 90 Mg Tab PO 90 mg DAILY@0700 AMEE Administration Triamcinolone Acetonide 0 gm 06/21/22 08:30 06/24/22 08:38 Triamcinolone 0.1% Cr 15 Gm Tube TP Not Given BID AMEE Allergies Penicillins Adverse Reaction (Intermediate, Unverified 06/04/22 09:58) black out gabapentin Adverse Reaction (Mild, Unverified 06/04/22 09:58) Headache niacin Adverse Reaction (Mild, Unverified 06/04/22 09:58) turn red Exam Narrative Exam Narrative: Physical Exam: Gen: Patient of apparent stated age, NAD Head and face: bruising around eyes bilaterally with multiple healing abrasions on the face; c-collar in place Neck: Supple, no meningismus, no occipital tenderness CV: irregular Resp: CTA B/L Abd: soft, nontender, nondistended Ext: No edema. No clubbing or cyanosis. No bony deformity. Neuro Exam: Language: fluency, naming, repetition, and comprehension intact; Mental Status: AAOxself only, current events and fund of knowledge limited; tangential with odd conversations Speech: moderate dysarthria Cranial nerves: Funduscopy: not performed CN II: visual lucio intact CN III, IV, : extraocular movements intact, no nystagmus, pupils symmetric and reactive to light CN V: face sensation intact to PP CN VII: no facial asymmetry noted CN VIII: hearing intact bilaterally CN IX, X: palate rises symmetrically CN XI: trapezius 5/5 bilaterally CN XII: protrudes tongue symmetrically Sensory: intact to PP in all extremities; other modalities not tested due to mental status Motor: bulk and tone intact. Fine motor movements intact bilaterally. No pronator drift. Strength 5/5 throughout including the deltoids, biceps, triceps, wrist extensors, hip flexors, knee flexors, knee extensors, ankle flexors, and ankle extensors. Reflexes: 2+ at the biceps, triceps, brachioradialis, patella, and achilles tendons bilaterally; +R Babinski; L toe neutral Coordination: FTN intact bilaterally Gait: not tested Results Last Vital Signs Temp 98.4 F 06/24/22 02:25 Pulse 92 H 06/24/22 08:16 Resp 20 06/24/22 08:16 BP 122/67 06/24/22 08:16 Pulse Ox 90 L 06/24/22 08:16 Labs Result diagrams: 06/24/22 06:35 06/24/22 06:35 Labs: Laboratory Results - last 24 hr 06/22/22 06/24/22 06/24/22 05:38 06:35 06:35 WBC 7.96 RBC 5.16 Hgb 15.7 Hct 46.7 MCV 91 MCH 30.4 MCHC 33.6 RDW 12.6 Plt Count 178 MPV 11.3 H Immature Gran % 0.4 Neutrophils % 64.9 Lymphocytes % 26.0 Monocytes % 6.4 Eosinophils % 1.9 Basophils % 0.4 Nucleated RBC % 0.0 Absolute Neutrophils 5.17 Absolute Lymphocytes 2.07 Absolute Monocytes 0.51 Absolute Eosinophils 0.15 Absolute Basophils 0.03 Sodium 139 Potassium 3.5 Chloride 101 Carbon Dioxide 31.0 Anion Gap 7.0 BUN 20 H Creatinine 0.8 Est GFR (CKD-EPI 2020) 99.44 Glucose 127 H Hemoglobin A1c Cancelled Calcium 9.8
[2022-06-24] MEDS: Insulin Aspart 300 UNITS/3 ML PEN SC ×2 (12:08→22:50)
--- NOTE | 2022-06-24 12:10 | SP_ITS ---
Date of service: 06/24/22 Time of Service: 12:00 Subjective Time spent: 40 min [place] speech and language evaluation Referring physician: Brice Hickman MD Primary Dx & Reason for referral: dysarthria/communication Other relevant DX: Recent fall with facial lesions,contusions, and C1 HPI: Mr. Hathaway is a 61 year-old man with atrial fibrillation, HTN, DM2, hypothyroidism, RLS, Bipolar d/o, schizoaffective disorder, and diverticulosis.?Frequent falls including falls with injury - fracture L 5th toe; significant forearm lac, etc - with signs of Parkinsonism - attributed to his neuroleptic medications. He? was brought to the ER on 06/20/22 by ambulance after he was found down at home with bruising, swelling, lacerations to face.? He was unsure how he got to the ground or how long he has been there.? In ER found to have nasal fractures and an apparent C1 avulsion fracture.? For the latter, apixaban was held x 72hr due to risk of hemorrhage and he was placed in a hard c-collar - though he has had some compliance issues with this.? On 06/22/22, he was noted to have new dysarthria and imbalance - now a 2 person assist - followed by apparent L face weakness which has now resolved - all concerning for stroke.? He underwent work-up as below.? Multiple conversations with hospital team, spine at [facility], and neurology at [facility] along with patient on risks/benefits of resuming anticoagulation at [facility] 48hr duong.? Decision was made to resume apixaban which he is tolerating without obvious bleed.? On 06/23/22, he was somnolent throughout the day.? His clozapine dose was reduced last night and he is much more alert today.? He has seen by PT who note a continued ataxic gait complicated by poor decision making.? PFSH All Active Problems?(Updated 06/24/22 @ 12:14 by Marina Gilliam MD) Ataxia (Acute) Acute ischemic stroke (Acute) Discharge planning issues (Acute) Dysarthria (Acute) Hypothyroidism (Chronic) C1 cervical fracture (Acute) Diabetes mellitus, type 2 (Chronic) Chronic schizophrenia (Chronic) Ambulatory dysfunction (Acute) Atrial fibrillation with rapid ventricular response (Acute) Alteration in thought content as evidenced by delusions (Acute) BRENNEN (acute kidney injury) (Acute) Medical History?(Updated 06/24/22 @ 12:14 by Marina Gilliam MD) Afib Atrial enlargement, bilateral BCC (basal cell carcinoma of skin) Bipolar 1 disorder (02/04/16) Bipolar disorder Chronic constipation Diverticulosis Facial basal cell cancer (02/04/16) Heel ulcer HTN (hypertension) HTN (hypertension) (02/04/16) Non-ST elevation CA (NSTEMI) OAB (overactive bladder) Obesity RLS (restless legs syndrome) Screening for colorectal cancer 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 (10/22/16) Urinary incontinence Vitreous floaters of right eye Weight gain (10/22/16) Surgical History? Colonoscopy - MAC (01/25/16) 2011Excision, Lipoma Hx of cholecystectomy Hydrocelectomy Tonsillectomy Patient denies any changes to speech, swallowing, or other communication difficulties. He shows very low insight throughout session, often providing tangentially related, non-linear responses to questions and education provided. Per nursing he tolerates current diet well. Objective Objective Cognition/Mental Status: Oriented to month but not year. Not oriented to day of week or date. Low insight into reason for hospitalization or current medical status. Poor historian, with tangential responses and low social-communicative inferencing skills. Language: Expression is grammatical. Appears at times with aphasic word-finding errors though it is difficult to district associate judge if these are paraphasias or due to his cognitive symptoms (tangential thought, poor comprehension & pragmatics). Naming objects in room: +7/7. Divergent naming of objects in a category: unable to name 5 fruits without going off-category, though responses are tangentially related e.g., lemonade. Convergent naming: +0/3 - gives responses such as for boys when provided socks, shirt, sweater. Oral-Motor & Peripheral Exam: Limited due to limited ability to follow motor instructions. Appears with low task persistence. Sensation: Does not respond independently to any touch of face despite multiple redirects with instructions. When prompted Do you feel this? he responds yes in all quadrants and on lips, anterior tongue. Motor: Difficulty following instructions and sometimes with off-target responses to requests such as move your tongue back and forth (patient moves it in/out). With redirection, he appears with symmetrical lingual protrusion and strength to lateral resistance. Difficulty eliciting cheek puff, pucker/smile, and upper facial strength testing tasks. Difficulty with mandibular excursion due to [place] J collar. Noting possible ?L sided nasolabial flattening. Difficulty to district associate judge facial symmetry at rest due to compression of jaw/lower face with [place] J- collar. Patient is unable to adequately open mouth for full oral examination. Able to visualize top dentition with poor oral care. Speech: Automatic speech (counting): Intially with clear articulatory contacts. Clarity fades and contact weaknes, rate increases over time. Conversational observation: Patient with quiet, moderately slurred speech, often trailing off at end of utterances. Speech characteristics are not apraxic, ataxic, or strained/spastic. Overall normal rate. Mild reduced prosodic contour. Diadochokinesis: Rate/rhythm: Normal or slightly fast. Coordination good with training/practice. Initially with clear articulatory contacts which fades to weak contact as repetitions increase, despite cueing. Max phonation time: ~7s (low), appears with poor task persistence. Not responsive to cueing. Assessment IMPRESSIONS: Patient presents with mild-mod dysarthria, likely at least partially secondary to CVA if confirmed, though suspect additional contribution of Parkinsonism secondary to neuroleptic meds, fatigue secondary to ?medication changes, as well as social-communication and pragmatic differences (lack of awareness of intelliigibilty/lack of consideration of listener's needs, likely secondary to mental health diagnoses/schizophrenia). He also presents with poor comprehension, though it is unclear at this time what the relative contributions are of CVA, fatigue/medication changes, baseline psychological/mental status. May be complicated by his baseline non-linear thought processes. Naming is overall normal, but he demonstrates poor convergent and divergent naming (likely cognitive/low inference). At this time, it is unclear to me if his cognitve and communication findings are significantly altered from baseline. Many of his social-communication and cognitive communication findings could be attributed to baseline diagnoses as well as new (?R sided) CVA. It is unclear if he would be a good candidate for therapeutic activities with [facility] [employer]. Further assessment required. Based on performance today, I believe he lacks the insight, problem-solving, and safety awareness required for independent living. Due to time constraints, no dysphagia evaluation performed this date. However, nursing denies any observed difficulty with PO intake. Plan [facility] to continue to follow while on unit. Continue to collaborate with neurology to determine next steps. Short Term Goals: Patient will participate in additional cognitive/communication assessment to monitor for progress and provide further insight into diagnoses. Coding
[2022-06-24 12:39] LABS: Estimated Average Glucose 137 mg/dL; Hemoglobin A1C 6.4 % (<5.7)
--- NOTE | 2022-06-24 13:41 | PTTR_ITS ---
Date of service: 06/24/22 Time of Service: 09:55 PT Notes Visit Reasons: CVA, C1 Fracture Inpatient Physical Therapy Treatment Note [facility] Date: 06/24/2022 PRECAUTIONS: Fall, [place]-J collar at all times SUBJECTIVE: Judd is pleasant and agreeable to participating in PT. He reports that he is functioning at the same level as he does at home. OBJECTIVE: PAIN: No c/o pain BED MOBILITY/TRANSFERS Supine-sit: I Sit-supine: I Sit-stand: I Stand-sit: I Bed-Chair: SBA GAIT Assistive Device: No AD Weight bearing: Full Assist: SBA Distance: 5' in a.m.; 50' in p.m. Deviation: Ataxic and unsteady gait ASSESSMENT: Patient tolerated session without complaint. He did not wish to ambulate further at this time. He appears impulsive with his transfers and movements, although reports that he feels he is at his baseline LOF. PLAN: Continue with gait training, add balance training as tolerated, for improv ed safety with mobility. TREATMENT CODE/TIME: Session 1: 10 minutes; 78988 (09:55) Session 2: 15 minutes; [id number] (13:25)
--- NOTE | 2022-06-24 14:17 | CHAPLAIN ---
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 It's not clear how or why he fell, according to ED notes. Judd was resting in bed with a collar on when I visited. I asked if he had an accident and he said he didn't have an accident, just got stitches. When I asked if he was from [facility], he told me that his two brothers were killed in an accident that he didn't know much about and then he names his parents and said he thought they were gone too. Judd was friendly and easily engaged in a conversation.
[2022-06-24] MEDS: metFORMIN 500 MG TAB 1000 MG PO (17:25)
[2022-06-24] MEDS: rOPINIRole 1 MG TAB PO (17:25)
--- NOTE | 2022-06-24 19:05 | W.PM.PROGNOT ---
Date of Service Date of service: 06/24/22 Time of Service: 15:22 Assessment and Plan Assessment and plan (1) Acute ischemic stroke: Status: Acute Assessment and plan: Pt with new dysarthria, and facial droop on 06/22, while off of Elliquis for probable C1 fracture.. Imaging with CT, CTA, and MRI have been completed. --Neurology recommends continuation of Eliquis and statin therapy. --cleared by speech therapy --PT recommends continued gait training while in-house --anticipate discharge when all (2) C1 cervical fracture: Status: Acute Assessment and plan: Pt is currently wearing [place] J collar, which should remain in place for at least 2 weeks from 06/20. He is to obtain repeat images and follow up with [facility] surgery. Reportedly, he has an appt on07/02 --okay to discharge from surgery standpoint (3) Diabetes mellitus, type 2: Status: Chronic Assessment and plan: Patient is a type II diabetic. He currently takes metformin 1000 mg p.o. twice daily. Monitor his blood sugars before meals and consider sliding scale insulin if his blood sugars are maintaining 200 or above. --Carb conscious diet (4) Chronic schizophrenia: Status: Chronic Assessment and plan: He has chronic schizophrenia which is treated with clozapine 100 mg at at bedtime and divalproex 2000 mg at at bedtime. (5) Atrial fibrillation with rapid ventricular response: Status: Acute Assessment and plan: He has chronic atrial fibrillation for which she has been on Eliquis. He takes metoprolol succinate 12.5 mg p.o. daily for rate control. (6) Hypothyroidism: Status: Chronic Assessment and plan: --[place] thyroid Subjective Subjective Interval history since last seen: Pt is without complaints. He states that he is not having any pain. He feels comfortable walking without the boot. He denies neck pain, and states he is agreeable to wearing the [place] J collar when he goes home. Exam Const General: comfortable and disheveled Orientation: alert, awake and oriented x3 Limitations: behavioral limitations [facility] Head: no palpable skull fracture and laceration (~4cm sutured laaceration over orbital ridge) General nose exam: epistaxis (dried blood in bilateral nares) Neck Neck: trachea midline, supple and no anterior neck swelling Chest Other: no chest wall tenderness or deformity noted Resp Effort & Inspection: normal respiratory effort, able to speak in complete sentences, no audible wheezes, no grunting, not labored and no nasal flaring Auscultation: clear to auscultation bilaterally Cardio Rate: regular rate Rhythm: abnormal rhythm GI Inspection: obesity and scar (healed right subcostal and supraumbilical incisions) Palpation: soft, not firm, no guarding, not rigid and nontender Percussion: normal to percussion Auscultation: normal bowel sounds Back/Spine/Pelvis Cervical Spine: collar present ([place] J collar in place) and No cervical spasm Neuro General: patient alert, patient awake, patient oriented x3 and moves all extremities Cranial Nerves: tongue midline Cognition: abnormal cognition Speech: speech normal (speech is much clearer today) Motor: other (strength equal bilaterally--no hemiparesis) Other: slight left-sided facial droop Extrem General: no calf tenderness and no pedal edema Psych Appearance: disheveled Mental Status: other (awake, alert;) Mood: congruent mood, labile mood and other (awake, alert;) Affect: labile affect Thought Process: loose association Insight: limited and poor Judgment: limited and poor Objective Last Vital Signs Temp 97.2 F L 06/24/22 15:30 Pulse 93 H 06/24/22 16:20 Resp 17 06/24/22 15:30 BP 115/73 06/24/22 15:30 Pulse Ox 92 06/24/22 15:30 Laboratory Results - last 24 hr 06/22/22 06/24/22 06/24/22 05:38 06:35 06:35 WBC 7.96 RBC 5.16 Hgb 15.7 Hct 46.7 MCV 91 MCH 30.4 MCHC 33.6 RDW 12.6 Plt Count 178 MPV 11.3 H Immature Gran % 0.4 Neutrophils % 64.9 Lymphocytes % 26.0 Monocytes % 6.4 Eosinophils % 1.9 Basophils % 0.4 Nucleated RBC % 0.0 Absolute Neutrophils 5.17 Absolute Lymphocytes 2.07 Absolute Monocytes 0.51 Absolute Eosinophils 0.15 Absolute Basophils 0.03 Sodium 139 Potassium 3.5 Chloride 101 Carbon Dioxide 31.0 Anion Gap 7.0 BUN 20 H Creatinine 0.8 Est GFR (CKD-EPI 2020) 99.[address] Glu mg/dL 137 Hemoglobin A1c 6.4 H Calcium 9.8 Time Spent with Patient Time Spent with Patient: <25 minutes Time was spent: preparing to see the patient(eg.review tests), obtaining and/or reviewing separately otained hiistory and counseling the patient
[2022-06-24] MEDS: Divalproex Sodium 500 MG TAB.ER.24H 2000 MG PO (20:54)
[2022-06-24] MEDS: Atorvastatin 40 MG TAB 80 MG PO (20:55)
[2022-06-25] VITALS (7 sets, daily range): BP systolic 102–127; BP diastolic 64–82; PULSE 66–99; RESP 12–18; TEMP 36.2–36.7; O2SAT 90–97
[2022-06-25 06:22] LABS: Abs Immature Grans 0.03 10^3/uL (0.0-0.06); Absolute Basophil Count 0.03 10^3/uL (0.0-0.2); Absolute Lymphocyte Count 2.36 10^3/uL (1.2-3.4); Absolute Neutrophil Count 3.06 10^3/uL (1.2-6.7); Basophils % 0.5; Eosinophils % 3.3; HCT 44.7 % (40.0-50.0); HGB 15.4 g/dL (13.5-17.5); Immature Grans % 0.5; Lymphocytes % 38.8; MCHC 34.5 % (32.0-36.0); MCV 90 fL (80-95); Monocytes % 6.6; Neutrophils % 50.3; Platelet Count 179 10^3/uL (130-400); RBC 4.97 10^6/uL (4.36-5.78); RDW 12.5 % (11.8-14.1); RDW-SD 41.2 fL; WBC 6.08 10^3/uL (4.4-10.8)
[2022-06-25 06:31] LABS: Anion Gap 7.8 mmol/L (3-11); BUN 20 mg/dL (7-18); CO2 30.2 mmol/L (21.0-32.0); CREATININE 0.9 mg/dL (0.70-1.30); Calcium 9.2 mg/dL (8.5-10.1); Chloride 100 mmol/L (98-107); Estimated GFR 95.97 (mL/min/1.73m2); Glucose 220 mg/dL (74-106); Potassium 3.4 mmol/L (3.5-5.1); Sodium 138 mmol/L (136-145)
[2022-06-25] MEDS: Potassium Chloride 10 MEQ CAPCR 20 MEQ PO (08:00)
[2022-06-25] MEDS: Metoprolol CR 25 MG TABCR 12.5 MG PO (08:00)
[2022-06-25] MEDS: Apixaban 5 MG TAB PO (08:00)
[2022-06-25] MEDS: metFORMIN 500 MG TAB 1000 MG PO ×2 (08:00→16:30)
[2022-06-25 08:03] LABS: Lab Add On Test DONE
[2022-06-25] MEDS: Insulin Aspart 300 UNITS/3 ML PEN SC ×3 (08:08→17:02)
[2022-06-25 08:11] LABS: Magnesium 2.1 mg/dL (1.8-2.4)
--- NOTE | 2022-06-25 12:15 | PTTR_ITS ---
Date of service: 06/25/22 Time of Service: 09:30 PT Notes Visit Reasons: CVA, C1 Fracture Inpatient Physical Therapy Treatment Note [facility] Date: 06/25/2022 PRECAUTIONS: Fall, [place]-J collar at all times SUBJECTIVE: Judd is pleasant and agreeable to participating in PT. He reports that he is feeling pretty good and that he feels comfortable with his collar on. OBJECTIVE: Issued and fit SPC to patient for at home use. He is agreeable that he would benefit from SPC support with ambulation for improved stability and gait mechanics. Completed [employer] form and submitted to Care Management. PAIN: No c/o pain BED MOBILITY/TRANSFERS Supine-sit: I Sit-supine: I Sit-stand: I Stand-sit: I GAIT Assistive Device: SPC Weight bearing: Full Assist: SBA Distance: 200' Deviation: Improved gait machines with use of SPC support, patient demonstrated antalgic gait likely due to recent ankle injury. ASSESSMENT: Patient tolerated session without complaint. He did not wish to ambulate or participate in further PT interventions at this time. He appears impulsive with his transfers and movements, although demonstrates improved stability with gait training with SPC support. PLAN: Continue with gait training, add balance training as tolerated, for improved safety with mobility. TREATMENT CODE/TIME: Session 1: 10 minutes; [id number] (09:55) Session 2: Declined
--- NOTE | 2022-06-25 13:34 | STREC_ITS ---
Date of service: 06/25/22 Time of Service: 13:34 Speech Therapy Recommendations Report ST Recommendations: Non-contact/Non-treat note. Per nursing this date, patient's symptoms have resolved and he no longer has slurred speech. No swallow difficulties have been observed and he has been tolerating PO well. Baseline status. COOK FROZEN DESSERT to sign off - please reconsult if new needs arise. Coding
--- NOTE | 2022-06-25 15:32 | DSE_ITS ---
Date of service: 06/25/22 Time of Service: 15:32 DS: Diagnosis Discharge Diagnosis (1) C1 cervical fracture: Status: Acute Asessment and Plan: Patient sustained a first cervical vertebral avulsion fracture which appeared to be stable on repeat CT imaging 48 hours after admission. Patient was fitted for hard cervical collar and is to wear this for the next 2 weeks and follow-up with [facility] spine surgery on July 02, 2021. (2) Acute ischemic stroke: Status: Acute Asessment and Plan: Patient sustained symptoms of an acute ischemic CVA likely embolic in nature nevertheless his CTA of his head and neck were negative for any acute occlusions of his major vessels. MRI scan although limited by motion artifact did not show any enhancing findings to suggest any stroke was present. (3) Dysarthria: Status: Resolved Asessment and Plan: Dysarthric speech resolved during this hospitalization he was evaluated by speech therapy who felt that he had no swallowing difficulties and required no further speech pathology follow-up treatment. (4) Ataxia: Status: Resolved Asessment and Plan: Patient was evaluated and treated by physical therapy and fitted for single- point cane. (5) Afib: Asessment and Plan: Patient resumed his Eliquis 5 mg twice a day and will remain on his toe probably cell 12.5 mg daily. (6) Bipolar 1 disorder: Asessment and Plan: Patient will be discharged on all of his routine psychiatric medic patients including his clozaril and his step COVID (7) Diabetes mellitus, type 2: Status: Chronic Discharge Plan Disposition Patient Disposition: Home W/Home Health Services Condition: Improving Discharge Details Reason For Visit: CVA, C1 Fracture Admit Date/Time: 06/22/22 14:45 Admit Provider: Brice Hickman Attending Provider: Kar Espana Primary Care Provider: Nisha Carrillo Hospital Course Hospital Course: Patient presented to the ED at [facility] after unwitness fall at home and was 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 Evaluation in the ED revealed that he has a C1 avulsion fracture of the vertebral body w/out any compromise of his spinal canal and he had facial nasal bone fracures along w/ facial lacerations and bruising. The ED provider spoke w/ neurosurgery at [facility] [place] [place] and was advised to put him in a hard cervical collar and monitor overnight. Patient was admitted to the surgical service of Dr. Kar Espana and hospitalist service was consulted for medical management of his type II DM, HTN and schizophrenia. Initially patient did well until morning of 06/22 when nursing noted dysarthric speech and weakness to the point that he was now a two person assist getting in/out of bed and he was noted to have left facial droop. These were all acute changes from his baseline function on admission. Stat CT head and cervical spine were done w/o contrast and showed no intracerebral nor subdural hemorrhage and the c-spine frx was stable. CTA of his head and neck were performed and Dr. Cao, neurology from [facility] [place] [place] and the orthopedic spine surgeon from [facility] [place] [place] were consulted. The patient's Elquis which he had been on for chronic atrial fibrillation had been held on admission and was to be held for 72 hours after the fracure. However, after consultation w/ neurology and spine surgery it was decided to resume Eliquis to prevent further CVA's. He was continued on telemetry monitoring and neuro checks and speech therapy, physical therapy and neurology were consulted. Patient did well over next couple days and he became more compliant w/ wearing his hard cervical collar. His dysarthric speech and facial droop improved by 06/23 although were not totally resolved. Neuro consult was obtained w/ Dr. Gilliam on 06/24, see her note for details. MRI of the brain was done but no evidence for infarct was seen by study was degraded by motion artifact. He was seen by speech therapy and physical therapy. At discharge his dysarthric speech had cleared and his facial droop had resolved. P.T. dismissed him and O.T. dismissed. Dr. Gilliam recommended continued Eliquis and atorvastatin and to follow up w/ Dr. Gilliam in 4 to 6 weeks. [facility] spine surgery recommends follow up in 1 weeks (Scheduled for July 02) Home Meds and New Rx's Prescriptions: Continued Eliquis 5 MG tablet 5 mg PO BID Qty: 180 12RF sennosides [senna] 8.6 MG tablet 8.6 mg PO BID PRN1 Days Rx Instructions: prn divalproex 500 mg tablet extended release 24 hr 2,000 mg PO HS Rx Instructions: takes at 1600 loratadine 10 mg tablet 10 mg PO DAILY PRN clozapine 200 mg tablet 400 mg PO HS Rx Instructions: With 100 mg tab for total of 500 mg po qhs lorazepam 0.5 mg tablet 0.5 mg PO .QH PRN triamcinolone acetonide 0.1 % cream 1 applic topical BID thyroid (pork) [[place] Thyroid] 90 MG tablet 90 mg PO QAM melatonin 3 MG tablet extended release 3 mg PO HS PRN ropinirole 1 mg Tablet 1 mg PO DIRECTED Rx Instructions: DAILY at 1600 albuterol sulfate [Ventolin HFA] 90 mcg/actuation Hfa Aerosol Inhaler 2 puff INHALATION Q4H PRN polyethylene glycol 3350 [Miralax] 17 gram/dose powder 17 g PO BID PRN Label Comments: 17 gram by mouth once a day as needed metformin 1,000 mg tablet 1,000 mg PO BID potassium chloride 20 mEq tablet extended release 10 meq PO DAILY docusate sodium 100 mg capsule 200 mg PO BID PRN furosemide 20 mg tablet 40 mg PO DAILY clozapine 100 mg tablet 100 mg PO QHS Rx Instructions: Take in combination with two 200 mg tabs for total dose of 500 mg po qhs metoprolol succinate 25 mg Tablet Extended Release 24 Hr 12.5 mg PO DAILY Qty: 30 0RF magnesium chloride 64 mg magnesium tablet 64 mg PO DAILY Qty: 30 0RF Changed atorvastatin [Lipitor] 10 MG tablet 40 mg PO QPM Qty: 0 0RF Discharge Instructions Instructions: Ischemic Stroke (DC), Cervical Fracture (DC), [place] J Collar (DC) Stand Alone Forms: Nursing Discharge Form Referrals: [facility] [Outside] - 07/02/22 8:00 am (Xray@830 am , Then You have an Appointment with Dr Amanda Sanchez @[phone] ) Nisha Carrillo MD [Primary Care Provider] - 07/02/22 9:30 am Marina Gilliam MD [ [facility] STAFF PHYSICIAN] - (A nurse from Dr Medina's office will call to make an Appointment ) Activity:: Activity as Tolerated Equipment/Supplies:: No Equipment Needed Diet:: Carb Counting Discharge Orders Discharge Orders: Discharge Order (Routine); Ordered 06/25/22 Ordered By: Brice Hickman Other Ambulatory Orders: Lipid 2 (Routine) Timeframe: 1 Week Facility: [facility] - Location: Laboratory Outpatient - [facility] Ordered By: Brice Hickman DS: Summary Time Spent with Patient providing and/or coordinating discharge services: Greater than 30 minutes Status at Discharge Functional status at discharge: uses cane/walker Overall status at discharge: patient is progressing back to baseline Mental Status: mental status grossly normal Speech and Movement: speech and movement normal Mood: congruent mood Affect: normal affect Exam Psych Mental Status: mental status grossly normal Speech and Movement: speech and movement normal Mood: congruent mood Affect: normal affect DS: Data Vitals/I&O Vitals and I&O: Vital Signs Temperature 36.6 C 06/25/22 11:52 Temperature Source Tympanic 06/25/22 11:52 Pulse 78 06/25/22 11:52 Pulse Rhythm Irregular 06/25/22 08:54 Respiratory Rate 12 06/25/22 07:27 Respiratory Effort Non-Labored 06/25/22 08:54 Respiratory Depth Normal 06/25/22 08:00 Respiratory Pattern Normal 06/25/22 08:54 Blood Pressure 124/77 06/25/22 11:52 Blood Pressure Position Sitting 06/20/22 17:30 Pulse Oximetry 92 06/25/22 11:52 Oxygen Delivery Method Room Air 06/25/22 11:52 Oxygen Flow Rate 0 06/25/22 11:52 Pain Level 0 06/25/22 11:52 Comment 06/21/22 01:53 Intake & Output 06/24/22 06/25/22 06/25/22 23:59 11:59 23:59 Intake Total 222 / 222 Balance 222 / 222 Intake: Oral 222 / 222 Other: Urine Color Yellow Yellow Pale Urine Appearance Clear Clear Clear Urine Odor Normal Comment total bed change done by [employer] and this principal technical writer Unmeasurable amount voided at this time. Patient was incontinent of urine also. Voiding Methods Diaper Toilet Toilet Incontinent Diaper Incontinent Data Completed and Pending Labs on day of discharge: Labs from last 24 hours 06/25/22 06/25/22 06/25/22 06:10 06:10 06:10 WBC 6.08 RBC 4.97 Hgb 15.4 Hct 44.7 MCV 90 MCH 31.0 MCHC 34.5 RDW 12.5 Plt Count 179 MPV 11.0 Immature Gran % 0.5 Neutrophils % 50.3 Lymphocytes % 38.8 Monocytes % 6.6 Eosinophils % 3.3 Basophils % 0.5 Nucleated RBC % 0.0 Absolute Neutrophils 3.06 Absolute Lymphocytes 2.36 Absolute Monocytes 0.40 Absolute Eosinophils 0.20 Absolute Basophils 0.03 Sodium Potassium Chloride Carbon Dioxide Anion Gap BUN Creatinine Est GFR (CKD-EPI 2020) Glucose Calcium Magnesium 2.1 Add-On Test Request DONE 06/25/22 06:10 WBC RBC Hgb Hct MCV MCH MCHC RDW Plt Count MPV Immature Gran % Neutrophils % Lymphocytes % Monocytes % Eosinophils % Basophils % Nucleated RBC % Absolute Neutrophils Absolute Lymphocytes Absolute Monocytes Absolute Eosinophils Absolute Basophils Sodium 138 Potassium 3.4 L Chloride 100 Carbon Dioxide 30.2 Anion Gap 7.8 BUN 20 H Creatinine 0.9 Est GFR (CKD-EPI 2020) 95.97 Glucose 220 H Calcium 9.2 Magnesium Add-On Test Request PFSH All Active Problems (Updated 06/25/22 @ 17:01 by Brice Hickman MD) Medication monitoring encounter (Acute) Acute ischemic stroke (Acute) Discharge planning issues (Acute) Hypothyroidism (Chronic) C1 cervical fracture (Acute) Diabetes mellitus, type 2 (Chronic) Chronic schizophrenia (Chronic) Ambulatory dysfunction (Acute) Atrial fibrillation with rapid ventricular response (Acute) Alteration in thought content as evidenced by delusions (Acute) BRENNEN (acute kidney injury) (Acute) Medical History Afib Atrial enlargement, bilateral BCC (basal cell carcinoma of skin) Bipolar 1 disorder (02/04/16) Bipolar disorder Chronic constipation Diverticulosis Facial basal cell cancer (02/04/16) Heel ulcer HTN (hypertension) HTN (hypertension) (02/04/16) Non-ST elevation SC (NSTEMI) OAB (overactive bladder) Obesity RLS (restless legs syndrome) Screening for colorectal cancer 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 (10/22/16) Urinary incontinence Vitreous floaters of right eye Weight gain (10/22/16) Surgical History Colonoscopy - MAC (01/25/16) 2011 Excision, Lipoma Hx of cholecystectomy Hydrocelectomy Tonsillectomy Family History Mother No problems noted. Father Heart disease Brother Alcohol abuse Social History Smoking/Tobacco Use Status: Current every day Tobacco Type: cigarettes Smoking risk assessment performed?: Yes Alcohol Intake: current Alcohol Intake frequency: holidays/special occasions only Alcohol type: beer and hard liquor Drug use: Current Sobriety Substance use type: does not use Current gender identity: male Do you feel safe at home: Yes Do you feel safe in your relationship?: Yes Time Spent with Patient Time Spent with Patient: <45 minutes Time was spent: preparing to see the patient(eg.review tests), ordering medications,tests, procedures, referring, communicating with other health care manager, indepentently interpreting results, counseling the patient and care coordination
--- NOTE | 2022-06-25 16:09 | PDOC.HHF2F ---
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 Evaluation in the ED revealed that he has a C1 avulsion fracture of the vertebral body w/out any compromise of his spinal canal and he had facial nasal bone fracures along w/ facial lacerations and bruising. The ED provider spoke w/ neurosurgery at [facility] [place] and was advised to put him in a hard cervical collar and monitor overnight. Patient was admitted to the surgical service of Dr. Kar Espana and hospitalist service was consulted for medical management of his type II DM, HTN and schizophrenia. Initially patient did well until morning of 06/22 when nursing noted dysarthric speech and weakness to the point that he was now a two person assist getting in/out of bed and he was noted to have left facial droop. These were all acute changes from his baseline function on admission. Stat CT head and cervical spine were done w/o contrast and showed no intracerebral nor subdural hemorrhage and the c-spine frx was stable. CTA of his head and neck were performed and Dr. Cao, neurology from [facility] and the orthopedic spine surgeon from [facility] were consulted. The patient's Elquis which he had been on for chronic atrial fibrillation had been held on admission and was to be held for 72 hours after the fracure. However, after consultation w/ neurology and spine surgery it was decided to resume Eliquis to prevent further CVA's. He was continued on telemetry monitoring and neuro checks and speech therapy, physical therapy and neurology were consulted. Patient did well over next couple days and he became more compliant w/ wearing his hard cervical collar. His dysarthric speech and facial droop improved by 06/23 although were not totally resolved. Neuro consult was obtained w/ Dr. Gilliam on 06/24, see her note for details. MRI of the brain was done but no evidence for infarct was seen by study was degraded by motion artifact. He was seen by speech therapy and physical therapy. At discharge his dysarthric speech had cleared and his facial droop had resolved. P.T. dismissed him and O.T. dismissed. Dr. Gilliam recommended continued Eliquis and atorvastatin and to follow up w/ he in 4 to 6 weeks. [facility] spine surgery recommends follow up in 2 to 3 weeks. Medical diagnosis necessitation home health referral: patient has unstable gait from prior right ankle fracture and his recent fall w/ facial and C1 fractures make travel outside his home hazardous Registered Nurse: Check all that apply Instruct on new or changed medication(s)/assess compliance: Ordered (assess medication compliance and assess compliance w/ cervical collar) Other: patient to wear hard cervical collar for two more weeks and have repeat c spine films done and sent to [facility] spine clinic Physical Therapist: Check all that apply Increase strength & endurance for safe mobility at home: Ordered To design/establish home maintenance program: Ordered Fall reduction therapy program for patient with history of frequent falls: Ordered Home safety evaluation and teaching/gait training including stair management (if applicable): Ordered Manager Filter: Assist with community resources: Ordered Precautions List Precautions: patient had C1 fracture and requires wearing of his cervical collar at all times for next 2 weeks until repeat xray of spine has been cleared by [facility] spine surgery Home Bound Status Requires the aid of supportive device (check all that apply): Cane Patient has a condition such that leaving home is medically contraindicated (Describe): see above Describe why leaving home would require a considerable and taxing effort: Requires frequent rest periods, Confusion and Safety Concerns: describe (hx of falls, high risk for further cervical fracture injury) Encounter Date and Reason: I certify that a FTF encounter for this patient was performed on June 25, 2022 and that such encounter was related to the primary reason the patient requires home health services. The encounter was conducted in the following manner: By me as the certifying physician, COUNCILLOR [employer]IN[employer]AND COUNCIL, PA or By an inpatient physician, COUNCILLOR ABORIGINAL LAND COUNCIL or PA during an inpatient stay who communicated findings to me, Certification And Authentication I certify that I composed the above information based on my clinical judgment relating to this patient's medical condition and, if applicable, clinical findings communicated to me by the NPP or inpatient physician who performed the FTF encounter. Name of Provider that will be monitoring home health services: Nisha Carrillo
[2022-06-25] MEDS: rOPINIRole 1 MG TAB PO (16:30)
--- NOTE | 2022-06-25 17:17 | CMDISCH_ITS ---
- If Service Date Differs Date of service: 06/25/22 Time of Service: 17:17 LACE Index Scoring Tool - Questions: Length of Stay (in days): 4 - 6 Acuity (Admit via E.D.?): Yes Comorbidities: Cerebrovascular Disease, Diabetes w/o Complication E.D. Visits: 12 - Answers: Total Score: 13 Risk of Readmission: High Risk Care Management Discharge Reason for Hospitalization: S/P fall, C1 fracture Discharge Plan: Judd returned home today with new orders for HH RN, PT, OT, AUTO DAMAGE INSURANCE APPRAISER. PAULO discussed options for discharge with Judd today, who verbalized wanting to return home. He did agree to going to the [facility], if a bed is available. PAULO discussed his discharge with [place], HIRE CAR DRIVER talent acquisition program manager, as his case resolution specialist was unavailable. HIRE CAR DRIVER did not follow up with a bed offer from the Care Bed, although this can be arranged in the community. Judd verbalized understanding of the importance of wearing the neck collar, and stated that it is comfortable, and that he knows that he needs to wear it until after his follow up appointment at [facility]. He has verbalized several times to different staff members his desire to return home. PAULO requested that HIRE CAR DRIVER bring in his ankle boot over the weekend, which was not brought in. PAULO requested that his shoe be brought in today, as he would be discharged today, and his shoe was not brought in. PAULO coordinated a meal to be brought home by Judd, as HIRE CAR DRIVER expressed concern about him returning home without dinner (which is normally provided by MOW). PAULO advised that his HIRE CAR DRIVER case resolution specialist call [facility] tomorrow to ensure that his MOW is resumed. PAULO called his landlord to have his door be opened, as Judd stated that he did not have his nowak. PAULO coordinated a ride with [facility]. PAULO called [facility] to schedule his follow up appointment with the Spine clinic, as recommended by the surgeon. His follow up with Dr. Sanchez is scheduled for 8:45am on 07/02/22 (location-3D), with an xray prior, arrival time of 8:15am (location-3T). He will also follow up with Neuro, his PCP, and his discharge plan of care. He is happy to be going home. Patient/Family Education Needs: Review discharge instructions with Judd, reiterate importance of him wearing his collar until after his follow up with the Spine clinic at [facility], discussion of self care needs including ask me three. Services Needed at Discharge: Home Health Care Services ( RN, PT, OT, AUTO DAMAGE INSURANCE APPRAISER), Transportation (RCT)
--- NOTE | 2022-06-25 17:50 | INDS_ITS ---
Date of service: 06/26/22 PT Notes Visit Reasons: CVA, C1 Fracture Physical Therapy Inpatient Discharge Summary Date: 06/25/2022 Dates of Service: 06/22/2022 through 06/25/2022 This is a clinical summary of care provided for the duration of dates listed above. No charge was made in the completion of this documentation. Referring Doctor: Kamila Remy MD PT Orders: PT CONSULT:Fall Safety assessment Precautions: Fall. Standard.?[place] cervical collar on at all times for the next 2 weeks per [facility] recommendation. Patient Profile/Admitting Diagnosis:? Judd is a 61-year-old male with chronic schizophrenia who was brought to the ED on 06/20/2022 due to an unwitnessed fall.? Patient was found on the floor when mental health staff came in during her scheduled visit.? Patient sustained a suspected vulsion fracture of the lateral mass of C1,? comminuted nsal bone fracture with forehead adn bilateral orbital contusions,? AF with RVR,? dysarthria, and hypothyroisidsm.? Was ordered by Dr. Garcia to wear fracture boot on R foot for previous ankle fracture until seen for re-xray on 06/24/2022 but patient has been non-compliant.? Came in to the hospital with just one shoe. PMHX: All Active Problems?(Updated 06/21/22 @ 02:18 by Hermes Calderon DO) Hypothyroidism (Chronic) C1 cervical fracture (Acute) Diabetes mellitus, type 2 (Acute) Chronic schizophrenia (Acute) Ambulatory dysfunction (Acute) Atrial fibrillation with rapid ventricular response (Acute) Alteration in thought content as evidenced by delusions (Acute) BRENNEN (acute kidney injury) (Acute) Medical History?(Updated 06/21/22 @ 02:18 by Hermes Calderon DO) Afib Atrial enlargement, bilateral BCC (basal cell carcinoma of skin) Bipolar 1 disorder (02/04/16) Bipolar disorder Chronic constipation Diverticulosis 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 Colonoscopy - MAC (01/25/16) 2011 Excision, Lipoma Hx of cholecystectomy Hydrocelectomy Tonsillectomy Social History/Home Situation: Lives alone in the basement of an apartment building with 2 stone steps to enter.? Ambulatory in the community using a single-point cane. Equipment Owned/DME: Single-point cane Subjective: NT. See most recent PATIENT FINANCIAL COORDINATOR notes. Objective: General Observation: NT. See most recent PATIENT FINANCIAL COORDINATOR notes. Mental Status: NT. See most recent PATIENT FINANCIAL COORDINATOR notes. Pain: NT. See most recent PATIENT FINANCIAL COORDINATOR notes. Vital Signs: NT. See most recent PATIENT FINANCIAL COORDINATOR notes. ROM: Right Upper Extremity: ? [place] WFL Left Upper Extremity:? [place] WFL Right Lower Extremity: Grosss[place] WFL Left Lower Extremity: [place] WFL Strength: Right Upper Extremity: Shoulder flexors 4-/5. Shoulder abductors 4-/5. Shoulder ER 4-/5. Shoulder IR 4-/5. Forearm pronators 4-/5. Forearm supinators 4-/5. Elbow flexors 4-/5. Elbow extensors 4-/5. Cuff Folder weak but functional. Left Upper Extremity: Shoulder flexors 4-/5. Shoulder abductors 4-/5. Shoulder ER 4-/5. Shoulder IR 4-/5. Forearm pronators 4-/5. Forearm supinators 4-/5. Elbow flexors 4-/5. Elbow extensors 4-/5. Cuff Folder weak but functional. Right Lower Extremity: Hip flexors 4-/5. Hip abductors 3+/5. Hip external rotators 3+/5. Hip internal rotators 3+/5. Knee flexors 3-/5. Knee extensors 3- /5. Ankle dorsiflexors/evertors 3-/5. Ankle plantarflexors/invertors 3-/5. Left Lower Extremity: Hip flexors 4-/5. Hip abductors 3+/5. Hip external rotators 3+/5. Hip internal rotators 3+/5. Knee flexors 3-/5. Knee extensors 3- /5. Ankle dorsiflexors/evertors 3-/5. Ankle plantarflexors/invertors 3-/5. BED MOBILITY/TRANSFERS ? Supine-sit: I Sit-supine: I? Sit-stand: I? Stand-sit: I? GAIT ? Assistive Device: SPC ? Weight bearing: Full Assist: SBA ? Distance: 200'? Deviation: Improved gait machines with use of SPC support, patient demonstrated antalgic gait likely due to recent ankle injury. Balance: Static Sitting: Normal Dynamic Sitting: Normal Static Standing: Fair Dynamic Standing: Fair Assessment: Strength symmetric in B UE/LE.? Speech at baseline compared to previous admissions.? Able to follow single commands but can be compulsive.? Needs constant reinforcement with [place] cervical collar use.? Will require frequent checks from staff/community nutrition educator to continue to ensure collar use.? Patient presents with clinical signs and symptoms consistent with current/admitting diagnoses that have resulted to mobility limitations, gait instability, generalized weakness, and overall ADL decline as demonstrated by the following impairment level findings: 1.? Decreased strength to BUE/LE? major muscle groups 2.? Impaired standing balance 3.? Impaired activity tolerance Impairments are contributing to the following functional limitations: 1.? Difficulty with ambulation 2.? Increased completion time for mobility ADL performance 3.? Increased risk for falls 4.? Difficulty with managing steps alone safely Goals: Goals X1 week 1. Supine-Sit independent with [place] collar on MET 2. Sit-Supine independent with [place] collar on MET 3. Sit-Stand independent with [place] collar on MET 4. Stand-Sit independent with SPC with [place] collar on MET 5. Bed-Chair independent with SPC with [place] collar on MET 6. Chair-Bed independent with SPC with [place] collar on MET 7.? Independent? with gait on level surface with use of SPC for at least 100 feet without report of pain nor dyspnea with [place] collar on NOT MET 8.? Independent? with stair negotiation while holding onto 1? rails for at least 3 steps without report of pain nor dyspnea with [place] collar on NOT MET 9. Good static and dynamic standing balance/tolerance with [place] collar on NOT MET DISCHARGE RECOMMENDATIONS: [] ? Home with no services [] [] ? Home with services [] [] ? SNF for continued rehabilitation [] [] ? Care Home Care [] [] ? SNF versus LTC based on ability to participate and progress [] [X]? Short-term SNF vs.? HH PT? vs.? supervised home setting to reduce fall risk TREATMENT CODE/TIME: NC Thank you for the opportunity to participate in the care of this patient. Karli Burrows PT, DPT, CLT [facility] [place], [place]
== END 2022-06-25 18:16 | disposition home health service (06) | DRG 551 ==
LOC: ER 06-21 00:36 → MS 06-21 02:18
PROVIDERS: Admitting Provider Internal Medicine; Emergency Provider Physician Assistant; PCP Family Medicine; Visit Provider Surgery
DX: S12.000A Unspecified displaced fracture of first cervical vertebra, initial encounter for closed fracture (principal); I63.49 Cerebral infarction due to embolism of other cerebral artery; N17.9 Acute kidney failure, unspecified; I48.20 Chronic atrial fibrillation, unspecified; G21.11 Neuroleptic induced parkinsonism; W19.XXXA Unspecified fall, initial encounter; F20.9 Schizophrenia, unspecified; Z79.01 Long term (current) use of anticoagulants; E03.9 Hypothyroidism, unspecified; E11.9 Type 2 diabetes mellitus without complications; F31.9 Bipolar disorder, unspecified; K59.09 Other constipation; I10 Essential (primary) hypertension; I25.2 Old myocardial infarction; N32.81 Overactive bladder; G25.81 Restless legs syndrome; Z79.84 Long term (current) use of oral hypoglycemic drugs; S01.81XA Laceration without foreign body of other part of head, initial encounter; S02.2XXA Fracture of nasal bones, initial encounter for closed fracture; F17.210 Nicotine dependence, cigarettes, uncomplicated; R29.810 Facial weakness; R47.1 Dysarthria and anarthria; R53.1 Weakness; S82.61XD Displaced fracture of lateral malleolus of right fibula, subsequent encounter for closed fracture with routine healing; X58.XXXD Exposure to other specified factors, subsequent encounter; R13.10 Dysphagia, unspecified
CPT/HCPCS: 12013; 36415; 70496; 70498; 80048; 80053; 80307; 82550; 87635; 93005; 93306; 96361; 96374; 97162; 97530; 99222; 99223; 99231; 99233; 99285; 70450; 70486; 70551; 71045; 72125; 73610; 80320; 81003; 81015; 83036; 83735; 84484; 85025; 87086; 92523; 93010; 99232; 99239; G0378; J2060; J3490

== ENCOUNTER 2022-07-04 01:26 | Outpatient (CLI) | payer MEDICARE, MEDICAID, SELFPAY ==
[2022-07-04 10:26] LABS: Abs Immature Grans 0.28 10^3/uL (0.0-0.06); Absolute Basophil Count 0.08 10^3/uL (0.0-0.2); Absolute Eosinophil Count 0.22 10^3/uL (0.0-0.7); Absolute Lymphocyte Count 3.75 10^3/uL (1.2-3.4); Absolute Monocyte Count 0.99 10^3/uL (0.1-0.8); Absolute Neutrophil Count 5.37 10^3/uL (1.2-6.7); Basophils % 0.7; Eosinophils % 2.1; HCT 51.1 % (40.0-50.0); HGB 17.1 g/dL (13.5-17.5); Immature Grans % 2.6; Lymphocytes % 35.1; MCH 30.8 pg (27.0-33.0); MCHC 33.5 % (32.0-36.0); MCV 92 fL (80-95); MPV 10.3 fL (8.0-11.0); Monocytes % 9.3; Neutrophils % 50.2; Platelet Count 292 10^3/uL (130-400); RBC 5.56 10^6/uL (4.36-5.78); RDW 12.7 % (11.8-14.1); WBC 10.69 10^3/uL (4.4-10.8)
[2022-07-04 11:11] LABS: Calculated LDL 84 mg/dL (<100); Cholesterol 180 mg/dL (<200); HDL Cholesterol 48 mg/dL (40-60); Triglyceride 241 mg/dL (<150)
== END 2022-07-04 01:27 | disposition home or self-care (01) ==
LOC: LBO 01:26
PROVIDERS: Internal Medicine; PCP Family Medicine; Visit Provider Psychiatry & Neurology Psychiatry
DX: I63.9 Cerebral infarction, unspecified (principal); Z51.81 Encounter for therapeutic drug level monitoring; Z79.899 Other long term (current) drug therapy; F25.0 Schizoaffective disorder, bipolar type
CPT/HCPCS: 36415; 80061; 85025

== ENCOUNTER 2022-07-11 01:25 | Outpatient (CLI) | payer MEDICARE, MEDICAID, SELFPAY ==
[2022-07-11 10:50] LABS: Abs Immature Grans 0.08 10^3/uL (0.0-0.06); Absolute Basophil Count 0.05 10^3/uL (0.0-0.2); Absolute Monocyte Count 0.69 10^3/uL (0.1-0.8); Absolute Neutrophil Count 4.76 10^3/uL (1.2-6.7); Basophils % 0.6; Eosinophils % 2.4; HCT 47.7 % (40.0-50.0); HGB 15.7 g/dL (13.5-17.5); MCH 30.4 pg (27.0-33.0); MCHC 32.9 % (32.0-36.0); MCV 92 fL (80-95); MPV 10.5 fL (8.0-11.0); Monocytes % 8.2; Neutrophils % 56.8; Platelet Count 307 10^3/uL (130-400); RBC 5.16 10^6/uL (4.36-5.78); RDW 13.1 % (11.8-14.1); RDW-SD 44.6 fL; WBC 8.38 10^3/uL (4.4-10.8)
== END 2022-07-11 01:26 | disposition home or self-care (01) ==
LOC: LBO 01:25
PROVIDERS: PCP Family Medicine; Visit Provider Psychiatry & Neurology Psychiatry
DX: Z79.899 Other long term (current) drug therapy (principal); F20.9 Schizophrenia, unspecified
CPT/HCPCS: 36415; 85025

== ENCOUNTER → 2022-07-15 13:00 | Outpatient (BNVA) | payer MEDICARE, MEDICAID, SELFPAY | PROVIDERS: PCP Family Medicine; Referring Provider Family Medicine; Visit Provider Nurse Practitioner Gerontology | DX: F17.210 Nicotine dependence, cigarettes, uncomplicated (principal); E11.9 Type 2 diabetes mellitus without complications; F20.9 Schizophrenia, unspecified; N39.41 Urge incontinence | CPT/HCPCS: 51798; 99214 ==

== ENCOUNTER 2022-07-18 02:01 | Outpatient (CLI) | payer MEDICARE, MEDICAID, SELFPAY ==
[2022-07-18 10:52] LABS: Abs Immature Grans 0.06 10^3/uL (0.0-0.06); Absolute Basophil Count 0.04 10^3/uL (0.0-0.2); Absolute Eosinophil Count 0.11 10^3/uL (0.0-0.7); Absolute Lymphocyte Count 2.89 10^3/uL (1.2-3.4); Absolute Monocyte Count 0.61 10^3/uL (0.1-0.8); Absolute Neutrophil Count 5.23 10^3/uL (1.2-6.7); Basophils % 0.4; Eosinophils % 1.2; HCT 48.5 % (40.0-50.0); HGB 16.1 g/dL (13.5-17.5); Immature Grans % 0.7; Lymphocytes % 32.3; MCH 30.4 pg (27.0-33.0); MCHC 33.2 % (32.0-36.0); MCV 92 fL (80-95); MPV 10.4 fL (8.0-11.0); Monocytes % 6.8; Neutrophils % 58.6; Platelet Count 279 10^3/uL (130-400); RBC 5.29 10^6/uL (4.36-5.78); RDW 13.3 % (11.8-14.1); RDW-SD 45.1 fL; WBC 8.94 10^3/uL (4.4-10.8)
== END 2022-07-18 02:02 | disposition home or self-care (01) ==
LOC: LBO 02:01
PROVIDERS: PCP Family Medicine; Visit Provider Psychiatry & Neurology Psychiatry
DX: Z79.899 Other long term (current) drug therapy (principal); F20.9 Schizophrenia, unspecified
CPT/HCPCS: 36415; 85025

== ENCOUNTER 2022-07-25 00:51 | Outpatient (CLI) | payer MEDICARE, MEDICAID, SELFPAY ==
[2022-07-25 10:52] LABS: Abs Immature Grans 0.08 10^3/uL (0.0-0.06); Absolute Basophil Count 0.07 10^3/uL (0.0-0.2); Absolute Eosinophil Count 0.15 10^3/uL (0.0-0.7); Absolute Lymphocyte Count 3.28 10^3/uL (1.2-3.4); Absolute Monocyte Count 0.58 10^3/uL (0.1-0.8); Absolute Neutrophil Count 4.53 10^3/uL (1.2-6.7); Basophils % 0.8; Eosinophils % 1.7; HGB 16.4 g/dL (13.5-17.5); Immature Grans % 0.9; Lymphocytes % 37.7; MCH 29.7 pg (27.0-33.0); MCHC 32.2 % (32.0-36.0); MCV 92 fL (80-95); MPV 10.8 fL (8.0-11.0); Monocytes % 6.7; Neutrophils % 52.2; Platelet Count 218 10^3/uL (130-400); RBC 5.53 10^6/uL (4.36-5.78); RDW 13.4 % (11.8-14.1); WBC 8.69 10^3/uL (4.4-10.8)
== END 2022-07-25 00:52 | disposition home or self-care (01) ==
LOC: LBO 00:51
PROVIDERS: PCP Family Medicine; Visit Provider Psychiatry & Neurology Psychiatry
DX: Z79.899 Other long term (current) drug therapy (principal)
CPT/HCPCS: 36415; 85025

== ENCOUNTER 2022-08-01 02:13 | Outpatient (CLI) | payer MEDICARE, MEDICAID, SELFPAY ==
[2022-08-01 10:33] LABS: Abs Immature Grans 0.07 10^3/uL (0.0-0.06); Absolute Basophil Count 0.04 10^3/uL (0.0-0.2); Absolute Eosinophil Count 0.27 10^3/uL (0.0-0.7); Absolute Lymphocyte Count 3.02 10^3/uL (1.2-3.4); Absolute Monocyte Count 0.64 10^3/uL (0.1-0.8); Absolute Neutrophil Count 4.65 10^3/uL (1.2-6.7); Basophils % 0.5; Eosinophils % 3.1; HCT 49.7 % (40.0-50.0); HGB 16.2 g/dL (13.5-17.5); Immature Grans % 0.8; Lymphocytes % 34.8; MCH 30.3 pg (27.0-33.0); MCHC 32.6 % (32.0-36.0); MCV 93 fL (80-95); MPV 10.9 fL (8.0-11.0); Monocytes % 7.4; Neutrophils % 53.4; Platelet Count 195 10^3/uL (130-400); RBC 5.34 10^6/uL (4.36-5.78); RDW 13.6 % (11.8-14.1); RDW-SD 47.1 fL; WBC 8.69 10^3/uL (4.4-10.8)
== END 2022-08-01 02:14 | disposition home or self-care (01) ==
LOC: LBO 02:13
PROVIDERS: PCP Family Medicine; Visit Provider Psychiatry & Neurology Psychiatry
DX: Z79.899 Other long term (current) drug therapy (principal); F20.9 Schizophrenia, unspecified
CPT/HCPCS: 36415; 85025

== ENCOUNTER 2022-08-08 02:14 | Outpatient (CLI) | payer MEDICARE, MEDICAID, SELFPAY ==
[2022-08-08 10:46] LABS: Abs Immature Grans 0.08 10^3/uL (0.0-0.06); Absolute Basophil Count 0.05 10^3/uL (0.0-0.2); Absolute Eosinophil Count 0.22 10^3/uL (0.0-0.7); Absolute Lymphocyte Count 3.65 10^3/uL (1.2-3.4); Absolute Monocyte Count 0.73 10^3/uL (0.1-0.8); Absolute Neutrophil Count 4.78 10^3/uL (1.2-6.7); Basophils % 0.5; Eosinophils % 2.3; HCT 48.8 % (40.0-50.0); HGB 16.3 g/dL (13.5-17.5); Immature Grans % 0.8; Lymphocytes % 38.4; MCH 30.6 pg (27.0-33.0); MCHC 33.4 % (32.0-36.0); MCV 92 fL (80-95); Monocytes % 7.7; Neutrophils % 50.3; Platelet Count 206 10^3/uL (130-400); RBC 5.33 10^6/uL (4.36-5.78); RDW 13.6 % (11.8-14.1); RDW-SD 45.9 fL; WBC 9.51 10^3/uL (4.4-10.8)
== END 2022-08-08 02:15 | disposition home or self-care (01) ==
LOC: LBO 02:15
PROVIDERS: PCP Family Medicine; Visit Provider Psychiatry & Neurology Psychiatry
DX: F20.9 Schizophrenia, unspecified (principal); Z79.899 Other long term (current) drug therapy
CPT/HCPCS: 36415; 85025

== ENCOUNTER 2022-08-15 02:46 | Outpatient (CLI) | payer MEDICARE, MEDICAID, SELFPAY ==
[2022-08-15 10:36] LABS: Abs Immature Grans 0.08 10^3/uL (0.0-0.06); Absolute Basophil Count 0.05 10^3/uL (0.0-0.2); Absolute Lymphocyte Count 3.58 10^3/uL (1.2-3.4); Absolute Monocyte Count 0.69 10^3/uL (0.1-0.8); Absolute Neutrophil Count 6.18 10^3/uL (1.2-6.7); Basophils % 0.5; Eosinophils % 1.9; HCT 49.5 % (40.0-50.0); HGB 16.6 g/dL (13.5-17.5); Immature Grans % 0.7; Lymphocytes % 33.2; MCH 30.5 pg (27.0-33.0); MCHC 33.5 % (32.0-36.0); MCV 91 fL (80-95); MPV 10.9 fL (8.0-11.0); Monocytes % 6.4; Neutrophils % 57.3; Platelet Count 255 10^3/uL (130-400); RBC 5.44 10^6/uL (4.36-5.78); RDW 13.7 % (11.8-14.1); RDW-SD 46.2 fL; WBC 10.78 10^3/uL (4.4-10.8)
== END 2022-08-15 02:47 | disposition home or self-care (01) ==
LOC: LBO 02:46
PROVIDERS: PCP Family Medicine; Visit Provider Psychiatry & Neurology Psychiatry
DX: F20.9 Schizophrenia, unspecified (principal); Z79.899 Other long term (current) drug therapy
CPT/HCPCS: 36415; 85025

== ENCOUNTER 2022-08-22 11:07 | Outpatient (CLI) | payer MEDICARE, MEDICAID, SELFPAY ==
[2022-08-22 11:23] LABS: Abs Immature Grans 0.08 10^3/uL (0.0-0.06); Absolute Basophil Count 0.05 10^3/uL (0.0-0.2); Absolute Eosinophil Count 0.17 10^3/uL (0.0-0.7); Absolute Lymphocyte Count 2.88 10^3/uL (1.2-3.4); Absolute Monocyte Count 0.55 10^3/uL (0.1-0.8); Absolute Neutrophil Count 4.21 10^3/uL (1.2-6.7); Basophils % 0.6; Eosinophils % 2.1; HCT 49.2 % (40.0-50.0); HGB 16.9 g/dL (13.5-17.5); Lymphocytes % 36.3; MCH 30.8 pg (27.0-33.0); MCHC 34.3 % (32.0-36.0); MCV 90 fL (80-95); MPV 11.3 fL (8.0-11.0); Monocytes % 6.9; Neutrophils % 53.1; Platelet Count 275 10^3/uL (130-400); RBC 5.48 10^6/uL (4.36-5.78); RDW 13.9 % (11.8-14.1); RDW-SD 46.1 fL; WBC 7.94 10^3/uL (4.4-10.8)
== END 2022-08-22 11:08 | disposition home or self-care (01) ==
LOC: LBO 11:08
PROVIDERS: PCP Family Medicine; Visit Provider Psychiatry & Neurology Psychiatry
DX: F20.9 Schizophrenia, unspecified (principal); Z79.899 Other long term (current) drug therapy
CPT/HCPCS: 36415; 85025

== ENCOUNTER 2022-08-29 14:23 | Outpatient (CLI) | payer MEDICARE, MEDICAID, SELFPAY ==
[2022-08-29 10:47] LABS: Absolute Basophil Count 0.07 10^3/uL (0.0-0.2); Absolute Eosinophil Count 0.37 10^3/uL (0.0-0.7); Absolute Lymphocyte Count 3.43 10^3/uL (1.2-3.4); Absolute Monocyte Count 0.66 10^3/uL (0.1-0.8); Absolute Neutrophil Count 4.38 10^3/uL (1.2-6.7); Basophils % 0.8; Eosinophils % 4.1; HCT 49.2 % (40.0-50.0); HGB 16.5 g/dL (13.5-17.5); Immature Grans % 1.1; Lymphocytes % 38.1; MCH 30.9 pg (27.0-33.0); MCHC 33.5 % (32.0-36.0); MCV 92 fL (80-95); MPV 10.4 fL (8.0-11.0); Monocytes % 7.3; Neutrophils % 48.6; Platelet Count 219 10^3/uL (130-400); RBC 5.34 10^6/uL (4.36-5.78); RDW 13.9 % (11.8-14.1); RDW-SD 47.1 fL; WBC 9.01 10^3/uL (4.4-10.8)
== END 2022-08-29 14:24 | disposition home or self-care (01) ==
LOC: LBO 14:24
PROVIDERS: PCP Family Medicine; Visit Provider Psychiatry & Neurology Psychiatry
DX: F20.9 Schizophrenia, unspecified (principal); Z79.899 Other long term (current) drug therapy
CPT/HCPCS: 36415; 85025

== ENCOUNTER 2022-09-05 11:37 | Outpatient (CLI) | payer MEDICARE, MEDICAID, SELFPAY ==
[2022-09-05 10:50] LABS: Abs Immature Grans 0.08 10^3/uL (0.0-0.06); Absolute Basophil Count 0.06 10^3/uL (0.0-0.2); Absolute Eosinophil Count 0.27 10^3/uL (0.0-0.7); Absolute Lymphocyte Count 3.52 10^3/uL (1.2-3.4); Absolute Monocyte Count 0.55 10^3/uL (0.1-0.8); Absolute Neutrophil Count 3.98 10^3/uL (1.2-6.7); Basophils % 0.7; Eosinophils % 3.2; HGB 16.9 g/dL (13.5-17.5); Immature Grans % 0.9; Lymphocytes % 41.6; MCH 30.7 pg (27.0-33.0); MCHC 33.8 % (32.0-36.0); MCV 91 fL (80-95); MPV 10.8 fL (8.0-11.0); Monocytes % 6.5; Neutrophils % 47.1; Platelet Count 221 10^3/uL (130-400); RBC 5.51 10^6/uL (4.36-5.78); RDW 13.8 % (11.8-14.1); RDW-SD 46.9 fL; WBC 8.46 10^3/uL (4.4-10.8)
== END 2022-09-05 11:38 | disposition home or self-care (01) ==
LOC: LBO 11:46
PROVIDERS: PCP Family Medicine; Visit Provider Psychiatry & Neurology Psychiatry
DX: F25.0 Schizoaffective disorder, bipolar type (principal); Z79.899 Other long term (current) drug therapy
CPT/HCPCS: 36415; 85025

== ENCOUNTER 2022-09-12 02:34 | Outpatient (CLI) | payer MEDICARE, MEDICAID, SELFPAY ==
[2022-09-12 11:23] LABS: Abs Immature Grans 0.11 10^3/uL (0.0-0.06); Absolute Basophil Count 0.07 10^3/uL (0.0-0.2); Absolute Eosinophil Count 0.19 10^3/uL (0.0-0.7); Absolute Lymphocyte Count 3.31 10^3/uL (1.2-3.4); Absolute Monocyte Count 0.76 10^3/uL (0.1-0.8); Basophils % 0.6; Eosinophils % 1.6; HCT 51.4 % (40.0-50.0); HGB 17.3 g/dL (13.5-17.5); Immature Grans % 0.9; MCH 31.1 pg (27.0-33.0); MCHC 33.7 % (32.0-36.0); MCV 92 fL (80-95); MPV 11.1 fL (8.0-11.0); Monocytes % 6.4; Neutrophils % 62.5; Platelet Count 247 10^3/uL (130-400); RBC 5.56 10^6/uL (4.36-5.78); RDW-SD 47.8 fL; WBC 11.81 10^3/uL (4.4-10.8)
[2022-09-12 11:24] LABS: Absolute Neutrophil Count 7.38 10^3/uL (1.2-6.7)
== END 2022-09-12 02:35 | disposition home or self-care (01) ==
LOC: LBO 02:34
PROVIDERS: PCP Family Medicine; Visit Provider Psychiatry & Neurology Psychiatry
DX: F25.0 Schizoaffective disorder, bipolar type (principal); Z79.899 Other long term (current) drug therapy
CPT/HCPCS: 36415; 85025

== ENCOUNTER 2022-09-19 01:33 | Outpatient (CLI) | payer MEDICARE, MEDICAID, SELFPAY ==
[2022-09-19 11:05] LABS: Abs Immature Grans 0.18 10^3/uL (0.0-0.06); Absolute Basophil Count 0.08 10^3/uL (0.0-0.2); Absolute Eosinophil Count 0.36 10^3/uL (0.0-0.7); Absolute Lymphocyte Count 3.28 10^3/uL (1.2-3.4); Absolute Monocyte Count 0.65 10^3/uL (0.1-0.8); Absolute Neutrophil Count 5.08 10^3/uL (1.2-6.7); Basophils % 0.8; Eosinophils % 3.7; HCT 51.3 % (40.0-50.0); Immature Grans % 1.9; Lymphocytes % 34.1; MCH 30.5 pg (27.0-33.0); MCHC 33.1 % (32.0-36.0); MCV 92 fL (80-95); MPV 10.3 fL (8.0-11.0); Monocytes % 6.7; Neutrophils % 52.8; Platelet Count 242 10^3/uL (130-400); RBC 5.57 10^6/uL (4.36-5.78); RDW 13.9 % (11.8-14.1); RDW-SD 47.3 fL; WBC 9.63 10^3/uL (4.4-10.8)
== END 2022-09-19 01:34 | disposition home or self-care (01) ==
LOC: LBO 01:34
PROVIDERS: PCP Family Medicine; Visit Provider Psychiatry & Neurology Psychiatry
DX: F20.9 Schizophrenia, unspecified (principal); Z79.899 Other long term (current) drug therapy
CPT/HCPCS: 36415; 85025

== ENCOUNTER 2022-09-26 01:46 | Outpatient (CLI) | payer MEDICARE, MEDICAID, SELFPAY ==
[2022-09-26 10:52] LABS: Abs Immature Grans 0.15 10^3/uL (0.0-0.06); Absolute Basophil Count 0.07 10^3/uL (0.0-0.2); Absolute Lymphocyte Count 4.08 10^3/uL (1.2-3.4); Basophils % 0.6; Eosinophils % 2.6; HCT 49.8 % (40.0-50.0); HGB 16.8 g/dL (13.5-17.5); Immature Grans % 1.3; Lymphocytes % 35.1; MCHC 33.7 % (32.0-36.0); MCV 92 fL (80-95); MPV 10.8 fL (8.0-11.0); Monocytes % 6.9; Neutrophils % 53.5; Platelet Count 222 10^3/uL (130-400); RBC 5.42 10^6/uL (4.36-5.78); RDW 13.7 % (11.8-14.1); RDW-SD 46.8 fL; WBC 11.63 10^3/uL (4.4-10.8)
[2022-09-26 10:54] LABS: Absolute Neutrophil Count 6.22 10^3/uL (1.2-6.7)
== END 2022-09-26 01:47 | disposition home or self-care (01) ==
LOC: LBO 01:46
PROVIDERS: PCP Family Medicine; Visit Provider Psychiatry & Neurology Psychiatry
DX: Z79.899 Other long term (current) drug therapy (principal)
CPT/HCPCS: 36415; 85025

== ENCOUNTER 2022-10-03 01:15 | Outpatient (CLI) | payer MEDICARE, MEDICAID, SELFPAY ==
[2022-10-03 10:36] LABS: Abs Immature Grans 0.07 10^3/uL (0.0-0.06); Absolute Basophil Count 0.06 10^3/uL (0.0-0.2); Absolute Monocyte Count 0.62 10^3/uL (0.1-0.8); Absolute Neutrophil Count 4.41 10^3/uL (1.2-6.7); Basophils % 0.7; Eosinophils % 3.3; HCT 51.1 % (40.0-50.0); HGB 17.3 g/dL (13.5-17.5); Immature Grans % 0.8; Lymphocytes % 39.1; MCH 31.1 pg (27.0-33.0); MCHC 33.9 % (32.0-36.0); MCV 92 fL (80-95); MPV 11.3 fL (8.0-11.0); Monocytes % 6.9; Neutrophils % 49.2; Platelet Count 196 10^3/uL (130-400); RBC 5.57 10^6/uL (4.36-5.78); RDW 13.2 % (11.8-14.1); RDW-SD 44.9 fL; WBC 8.96 10^3/uL (4.4-10.8)
== END 2022-10-03 01:16 | disposition home or self-care (01) ==
LOC: LBO 01:15
PROVIDERS: PCP Family Medicine; Visit Provider Psychiatry & Neurology Psychiatry
DX: Z79.899 Other long term (current) drug therapy (principal); F20.9 Schizophrenia, unspecified; Z51.81 Encounter for therapeutic drug level monitoring
CPT/HCPCS: 36415; 85025

== ENCOUNTER 2022-10-10 01:50 | Outpatient (CLI) | payer MEDICARE, MEDICAID, SELFPAY ==
[2022-10-10 10:51] LABS: Abs Immature Grans 0.16 10^3/uL (0.0-0.06); Absolute Basophil Count 0.09 10^3/uL (0.0-0.2); Absolute Eosinophil Count 0.27 10^3/uL (0.0-0.7); Absolute Lymphocyte Count 3.12 10^3/uL (1.2-3.4); Absolute Monocyte Count 0.73 10^3/uL (0.1-0.8); Absolute Neutrophil Count 6.04 10^3/uL (1.2-6.7); Basophils % 0.9; Eosinophils % 2.6; HCT 47.2 % (40.0-50.0); HGB 16.2 g/dL (13.5-17.5); Immature Grans % 1.5; MCH 31.5 pg (27.0-33.0); MCHC 34.3 % (32.0-36.0); MCV 92 fL (80-95); Platelet Count 214 10^3/uL (130-400); RBC 5.14 10^6/uL (4.36-5.78); RDW 13.3 % (11.8-14.1); RDW-SD 45.2 fL; WBC 10.41 10^3/uL (4.4-10.8)
== END 2022-10-10 01:51 | disposition home or self-care (01) ==
LOC: LBO 01:50
PROVIDERS: PCP Family Medicine; Visit Provider Psychiatry & Neurology Psychiatry
DX: F20.9 Schizophrenia, unspecified (principal); Z79.899 Other long term (current) drug therapy
CPT/HCPCS: 36415; 85025

== ENCOUNTER 2022-10-17 01:43 | Outpatient (CLI) | payer MEDICARE, MEDICAID, SELFPAY ==
[2022-10-20 12:02] LABS: Abs Immature Grans 0.12 10^3/uL (0.0-0.06); Absolute Basophil Count 0.05 10^3/uL (0.0-0.2); Absolute Eosinophil Count 0.22 10^3/uL (0.0-0.7); Absolute Lymphocyte Count 3.59 10^3/uL (1.2-3.4); Absolute Monocyte Count 0.83 10^3/uL (0.1-0.8); Absolute Neutrophil Count 6.58 10^3/uL (1.2-6.7); Basophils % 0.4; Eosinophils % 1.9; HCT 50.9 % (40.0-50.0); HGB 17.1 g/dL (13.5-17.5); Immature Grans % 1.1; Lymphocytes % 31.5; MCH 31.3 pg (27.0-33.0); MCHC 33.6 % (32.0-36.0); MCV 93 fL (80-95); MPV 11.7 fL (8.0-11.0); Monocytes % 7.3; Neutrophils % 57.8; Platelet Count 260 10^3/uL (130-400); RBC 5.47 10^6/uL (4.36-5.78); RDW 13.2 % (11.8-14.1); RDW-SD 45.7 fL; WBC 11.39 10^3/uL (4.4-10.8)
== END 2022-10-17 01:44 | disposition home or self-care (01) ==
LOC: LBO 01:43
PROVIDERS: Counselor Addiction (Substance Use Disorder); PCP Family Medicine; Visit Provider Psychiatry & Neurology Psychiatry
DX: F20.9 Schizophrenia, unspecified (principal); Z79.899 Other long term (current) drug therapy
CPT/HCPCS: 85025

== ENCOUNTER 2022-10-22 15:49 | Outpatient (REF) | payer MEDICARE, MEDICAID, SELFPAY ==
[2022-10-22 20:06] LABS: COMMENT (LAB VIEW ONLY) 42.83 mg/dL; Microalb ug/mg Crea 12.1 ug/mg Cr
== END 2022-10-22 15:50 | disposition home or self-care (01) ==
LOC: NCHCN 15:49
PROVIDERS: PCP Family Medicine; Visit Provider Family Medicine
DX: E11.9 Type 2 diabetes mellitus without complications (principal)
CPT/HCPCS: 82043; 82570

== ENCOUNTER 2022-10-24 02:56 | Outpatient (CLI) | payer MEDICARE, MEDICAID, SELFPAY ==
[2022-10-24 11:04] LABS: Abs Immature Grans 0.09 10^3/uL (0.0-0.06); Absolute Basophil Count 0.07 10^3/uL (0.0-0.2); Absolute Eosinophil Count 0.23 10^3/uL (0.0-0.7); Absolute Lymphocyte Count 3.46 10^3/uL (1.2-3.4); Absolute Monocyte Count 0.77 10^3/uL (0.1-0.8); Absolute Neutrophil Count 5.14 10^3/uL (1.2-6.7); Basophils % 0.7; Eosinophils % 2.4; HCT 50.2 % (40.0-50.0); HGB 17.1 g/dL (13.5-17.5); Immature Grans % 0.9; Lymphocytes % 35.5; MCH 31.5 pg (27.0-33.0); MCHC 34.1 % (32.0-36.0); MCV 92 fL (80-95); MPV 11.2 fL (8.0-11.0); Monocytes % 7.9; Neutrophils % 52.6; Platelet Count 230 10^3/uL (130-400); RBC 5.43 10^6/uL (4.36-5.78); RDW 12.9 % (11.8-14.1); RDW-SD 43.9 fL; WBC 9.76 10^3/uL (4.4-10.8)
[2022-10-24 11:09] LABS: Hemoglobin A1C 6.4 % (<5.7)
[2022-10-24 11:44] LABS: Anion Gap 8.5 mmol/L (3-11); BUN 18 mg/dL (7-18); CO2 30.5 mmol/L (21.0-32.0); CREATININE 1.1 mg/dL (0.70-1.30); Calcium 9.6 mg/dL (8.5-10.1); Chloride 104 mmol/L (98-107); Estimated GFR 75.43 (mL/min/1.73m2); Glucose 163 mg/dL (74-106); Potassium 4.3 mmol/L (3.5-5.1); Sodium 143 mmol/L (136-145)
== END 2022-10-24 02:57 | disposition home or self-care (01) ==
PROVIDERS: Counselor Addiction (Substance Use Disorder); PCP Family Medicine; Visit Provider Family Medicine
DX: E11.9 Type 2 diabetes mellitus without complications (principal); F20.9 Schizophrenia, unspecified; Z79.899 Other long term (current) drug therapy
CPT/HCPCS: 36415; 80048; 83036; 83735; 85025

== ENCOUNTER → 2022-10-29 13:21 | Outpatient (BNVA) | payer MEDICARE, MEDICAID, SELFPAY | PROVIDERS: PCP Family Medicine; Referring Provider Family Medicine; Visit Provider Nurse Practitioner Gerontology | DX: N39.41 Urge incontinence (principal); Z79.899 Other long term (current) drug therapy | CPT/HCPCS: 51798; 81003; 99213 ==

== ENCOUNTER 2022-10-31 01:23 | Outpatient (CLI) | payer MEDICARE, MEDICAID, SELFPAY ==
[2022-10-31 10:50] LABS: Abs Immature Grans 0.12 10^3/uL (0.0-0.06); Absolute Basophil Count 0.09 10^3/uL (0.0-0.2); Absolute Eosinophil Count 0.27 10^3/uL (0.0-0.7); Absolute Monocyte Count 0.84 10^3/uL (0.1-0.8); Absolute Neutrophil Count 7.92 10^3/uL (1.2-6.7); Basophils % 0.7; HCT 48.9 % (40.0-50.0); HGB 16.6 g/dL (13.5-17.5); Immature Grans % 0.9; MCH 31.4 pg (27.0-33.0); MCHC 33.9 % (32.0-36.0); MCV 92 fL (80-95); MPV 10.8 fL (8.0-11.0); Monocytes % 6.3; Neutrophils % 59.1; Platelet Count 226 10^3/uL (130-400); RBC 5.29 10^6/uL (4.36-5.78); RDW 12.4 % (11.8-14.1); RDW-SD 42.7 fL
[2022-10-31 10:51] LABS: Absolute Lymphocyte Count 4.15 10^3/uL (1.2-3.4)
[2022-10-31 11:01] LABS: Bilirubin Small (Negative); Blood Trace-intact (Negative); Clarity Clear (Clear); Glucose Negative (Negative); Ketones 15 mg/dL (Negative); Leukocyte Esterase Negative (Negative); Nitrite Negative (Negative); Specific Gravity 1.015 (1.005-1.025); pH 6.5 (5-8)
[2022-10-31 11:06] LABS: Bacteria Few HPF (Negative); C & S Indicated? No; Casts Negative LPF (Negative); Crystals Negative HPF (Negative); Epithelial Cells Rare HPF (Negative); Mucus Trace (Negative); Other Cells Negative (Negative); WBC Negative HPF (0-5)
== END 2022-10-31 01:24 | disposition home or self-care (01) ==
PROVIDERS: Nurse Practitioner Gerontology; PCP Family Medicine; Visit Provider Counselor Addiction (Substance Use Disorder)
DX: R31.29 Other microscopic hematuria (principal); F20.9 Schizophrenia, unspecified; Z79.899 Other long term (current) drug therapy
CPT/HCPCS: 36415; 81003; 81015; 85025

== ENCOUNTER 2022-11-07 02:37 | Outpatient (CLI) | payer MEDICARE, MEDICAID, SELFPAY ==
[2022-11-07 11:01] LABS: Absolute Basophil Count 0.08 10^3/uL (0.0-0.2); Absolute Lymphocyte Count 3.77 10^3/uL (1.2-3.4); Absolute Monocyte Count 0.63 10^3/uL (0.1-0.8); Absolute Neutrophil Count 4.28 10^3/uL (1.2-6.7); Basophils % 0.9; Eosinophils % 4.3; HCT 47.3 % (40.0-50.0); HGB 16.4 g/dL (13.5-17.5); Immature Grans % 1.1; Lymphocytes % 40.7; MCHC 34.7 % (32.0-36.0); MCV 92 fL (80-95); MPV 11.1 fL (8.0-11.0); Monocytes % 6.8; Neutrophils % 46.2; Platelet Count 225 10^3/uL (130-400); RBC 5.13 10^6/uL (4.36-5.78); RDW 12.3 % (11.8-14.1); RDW-SD 41.8 fL; WBC 9.26 10^3/uL (4.4-10.8)
== END 2022-11-07 02:38 | disposition home or self-care (01) ==
LOC: LBO 02:38
PROVIDERS: Counselor Addiction (Substance Use Disorder); PCP Family Medicine; Visit Provider Psychiatry & Neurology Psychiatry
DX: F20.9 Schizophrenia, unspecified (principal); Z79.899 Other long term (current) drug therapy
CPT/HCPCS: 36415; 85025

== ENCOUNTER 2022-11-14 01:13 | Outpatient (CLI) | payer MEDICARE, MEDICAID, SELFPAY ==
[2022-11-14 10:50] LABS: Abs Immature Grans 0.08 10^3/uL (0.0-0.06); Absolute Basophil Count 0.06 10^3/uL (0.0-0.2); Absolute Lymphocyte Count 3.48 10^3/uL (1.2-3.4); Absolute Monocyte Count 0.61 10^3/uL (0.1-0.8); Absolute Neutrophil Count 5.68 10^3/uL (1.2-6.7); Basophils % 0.6; HCT 51.2 % (40.0-50.0); HGB 17.4 g/dL (13.5-17.5); Immature Grans % 0.8; Lymphocytes % 34.4; MCH 31.7 pg (27.0-33.0); MCV 93 fL (80-95); MPV 11.1 fL (8.0-11.0); Neutrophils % 56.2; Platelet Count 246 10^3/uL (130-400); RBC 5.49 10^6/uL (4.36-5.78); RDW 12.6 % (11.8-14.1); RDW-SD 43.3 fL; WBC 10.11 10^3/uL (4.4-10.8)
== END 2022-11-14 01:14 | disposition home or self-care (01) ==
PROVIDERS: PCP Family Medicine; Visit Provider Counselor Addiction (Substance Use Disorder)
DX: F20.9 Schizophrenia, unspecified (principal); Z79.899 Other long term (current) drug therapy
CPT/HCPCS: 36415; 85025

== ENCOUNTER 2022-11-21 01:55 | Outpatient (CLI) | payer MEDICARE, MEDICAID, SELFPAY ==
[2022-11-21 10:55] LABS: Abs Immature Grans 0.07 10^3/uL (0.0-0.06); Absolute Basophil Count 0.07 10^3/uL (0.0-0.2); Absolute Lymphocyte Count 3.41 10^3/uL (1.2-3.4); Absolute Monocyte Count 1.04 10^3/uL (0.1-0.8); Basophils % 0.5; Eosinophils % 1.2; HCT 51.7 % (40.0-50.0); HGB 18.1 g/dL (13.5-17.5); Immature Grans % 0.5; Lymphocytes % 24.6; MCV 92 fL (80-95); Monocytes % 7.5; Neutrophils % 65.7; Platelet Count 263 10^3/uL (130-400); RBC 5.65 10^6/uL (4.36-5.78); RDW 12.9 % (11.8-14.1); RDW-SD 43.2 fL; WBC 13.88 10^3/uL (4.4-10.8)
[2022-11-21 10:56] LABS: Absolute Eosinophil Count 0.17 10^3/uL (0.0-0.7); Absolute Neutrophil Count 9.12 10^3/uL (1.2-6.7)
[2022-11-21 11:42] LABS: Hemoglobin A1C 6.6 % (<5.7)
== END 2022-11-21 01:56 | disposition home or self-care (01) ==
PROVIDERS: PCP Family Medicine; Visit Provider Counselor Addiction (Substance Use Disorder)
DX: E11.9 Type 2 diabetes mellitus without complications (principal); F20.9 Schizophrenia, unspecified; Z79.899 Other long term (current) drug therapy
CPT/HCPCS: 36415; 83036; 85025

== ENCOUNTER 2022-11-28 01:07 | Outpatient (CLI) | payer MEDICARE, MEDICAID, SELFPAY ==
[2022-11-28 10:19] LABS: Abs Immature Grans 0.02 10^3/uL (0.0-0.06); Absolute Basophil Count 0.05 10^3/uL (0.0-0.2); Absolute Eosinophil Count 0.07 10^3/uL (0.0-0.7); Absolute Lymphocyte Count 2.28 10^3/uL (1.2-3.4); Absolute Monocyte Count 0.53 10^3/uL (0.1-0.8); Absolute Neutrophil Count 5.26 10^3/uL (1.2-6.7); Basophils % 0.6; Eosinophils % 0.9; HCT 52.6 % (40.0-50.0); HGB 18.4 g/dL (13.5-17.5); Immature Grans % 0.2; Lymphocytes % 27.8; MCH 31.6 pg (27.0-33.0); MCV 90 fL (80-95); MPV 10.6 fL (8.0-11.0); Monocytes % 6.5; Platelet Count 253 10^3/uL (130-400); RBC 5.82 10^6/uL (4.36-5.78); RDW 12.4 % (11.8-14.1); RDW-SD 40.6 fL; WBC 8.21 10^3/uL (4.4-10.8)
[2022-11-28] MEDS: Omnipaque 350 MG/ML 500 ML BTL-Imaging package 100 ML IJ (10:25)
--- NOTE | 2022-11-28 10:32 | DI.CT_ITS ---
Exam(s) CT ABDOMEN PELVIS WO/W EXAM: CT ABDOMEN PELVIS WO/W CLINICAL HISTORY: hematuria, R31.9 TECHNIQUE: Imaging Protocol: Axial computed tomography images with coronal and sagittal reformatted images were created and reviewed CONTRAST MATERIAL: Intravenous: Omnipaque 350 Contrast volume:100 mL Oral: No COMPARISON: CT CT ABDOMEN PELVIS W from 03/27/[address] THORACIC LUMBAR SPINE REC from 09/03/[address] CHEST PE CTA from 03/29/2022 FINDINGS: The examination is limited due to patient motion artifact. ABDOMEN: Lung Bases: Coronary artery calcifications are present. Liver: There is fatty infiltration of the liver. The liver is enlarged. No measurable mass. Portal, Superior Mesenteric, and Splenic Veins: Unremarkable. Gallbladder and Biliary Tract: The gallbladder is absent. There is no biliary ductal dilatation. Pancreas: There is fatty atrophy of the pancreas. Spleen: Normal. Adrenals: No masses seen. Kidneys: Normal size, contour and axis. There is a 1-2 mm nonobstructing stone in the lower pole of t he left kidney. There is no hydronephrosis. There are few tiny hypodensities in the kidneys. They are too small for further characterization but likely reflect small cysts. No follow-up is recommend ed. No suspicious renal masses are present. Abdominal Aorta: Abdominal portion non-dilated. Atherosclerosis. Bowel: There is diverticulosis but no evidence of acute diverticulitis. There is no evidence of juan l obstruction or bowel wall thickening. Appendix is unremarkable. Peritoneal Cavity: No ascites, collection or mesenteric inflammatory response. No free air. Lymph Nodes: Within normal limits. Bones: Within normal limits for the patient's age. There is a new superior compression deformity at L2. There is loss of almost all 3rd of the height of the vertebral body. Soft Tissues: There is a tiny fat containing umbilical hernia. PELVIS: Bladder: There is thickening of the wall of the urinary bladder which is diffuse. The bladder is und erdistended which may account for this. No discrete mass is seen. The surrounding soft tissues are unremarkable. Reproductive Organs: Unremarkable as visualized. Lymph Nodes: Within normal limits. Bones: Within normal limits for the patient's age. IMPRESSION: 1. 1-2 mm nonobstructing stone in the left kidney. 2. Mild diffuse urinary bladder wall thickening. This may be due to underdistention. Cystitis or ne oplasm cannot be entirely excluded. 3. New superior compression deformity of L2. It is indeterminate in age. Follow-up as clinically ap propriate. RADIATION DOSE DELIVERED: 3,500.08mGy.cm Total DLP 3,500.08mGy.cm Total DLP DATA REPOSITORY: All CT scans at this facility are submitted to the National Radiology Data Registry (NRDR) Dose Index Registry (DIR) with the [employer] (ACR). RADIATION OPTIMIZATION: All CT scans at this facility use at least one of these dose optimization te chniques: automated exposure control; mA and/or kV adjustment per patient size (includes targeted exa ms where dose is matched to clinical indication); or iterative reconstruction.
== END 2022-11-28 01:27 ==
LOC: DI 01:08
PROVIDERS: Counselor Addiction (Substance Use Disorder); PCP Family Medicine; Visit Provider Nurse Practitioner Gerontology
DX: Z79.899 Other long term (current) drug therapy (principal); R31.9 Hematuria, unspecified; N32.89 Other specified disorders of bladder; N20.0 Calculus of kidney
CPT/HCPCS: 74178; 85025

== ENCOUNTER 2022-12-03 21:56 | Outpatient (REF) | payer MEDICARE, MEDICAID, SELFPAY ==
[2022-12-03 22:11] LABS: Abs Immature Grans 0.04 10^3/uL (0.0-0.06); Absolute Basophil Count 0.09 10^3/uL (0.0-0.2); Absolute Eosinophil Count 0.22 10^3/uL (0.0-0.7); Absolute Lymphocyte Count 3.66 10^3/uL (1.2-3.4); Absolute Monocyte Count 0.87 10^3/uL (0.1-0.8); Absolute Neutrophil Count 5.98 10^3/uL (1.2-6.7); Basophils % 0.8; HCT 51.5 % (40.0-50.0); HGB 17.7 g/dL (13.5-17.5); Immature Grans % 0.4; Lymphocytes % 33.7; MCH 31.4 pg (27.0-33.0); MCHC 34.4 % (32.0-36.0); MCV 92 fL (80-95); MPV 12.5 fL (8.0-11.0); Neutrophils % 55.1; Platelet Count 273 10^3/uL (130-400); RBC 5.63 10^6/uL (4.36-5.78); RDW 12.2 % (11.8-14.1); RDW-SD 41.2 fL; WBC 10.86 10^3/uL (4.4-10.8)
[2022-12-03 22:24] LABS: ALT 33 U/L (16-63); AST 19 U/L (15-37); Albumin 4.1 g/dL (3.4-5.0); Alkaline Phosphatase 97 U/L (46-116); Anion Gap 14.1 mmol/L (3-11); BUN 25 mg/dL (7-18); Bilirubin, Total 0.3 mg/dL (0.2-1.0); CO2 25.9 mmol/L (21.0-32.0); CREATININE 1.3 mg/dL (0.70-1.30); Calcium 9.6 mg/dL (8.5-10.1); Chloride 99 mmol/L (98-107); Estimated GFR 61.73 (mL/min/1.73m2); Glucose 196 mg/dL (74-106); Potassium 3.8 mmol/L (3.5-5.1); Sodium 139 mmol/L (136-145); Total Protein 7.9 g/dL (6.4-8.2)
== END 2022-12-03 21:57 | disposition home or self-care (01) ==
LOC: LBN 21:56
PROVIDERS: PCP Family Medicine; Visit Provider Physician Assistant Medical
DX: R41.0 Disorientation, unspecified (principal)
CPT/HCPCS: 80053; 85025

== ENCOUNTER 2022-12-05 09:47 | Observation (INO) | payer MEDICARE, MEDICAID, SELFPAY ==
[2022-12-05] VITALS (27 sets, daily range): BP systolic 110–152; BP diastolic 74–89; PULSE 63–91; RESP 12–28; TEMP 35.8–36.2; O2SAT 94–99
--- NOTE | 2022-12-05 10:00 | RT.EKG_ITS ---
APPROVED REPORT Exam: Resting ECG Reason for Exam: Confusion Patient Location: E HR:92 bpm ECG Measurements Heart Rate 92 AXIS [place] [id number] P [id number] QRSd 92 QRS 57 QT 363 T 269 QTc 450 Conclusion Atrial fibrillation...V-rate 69-109, irreg A-activity Borderline repol abnormality, diffuse leads...ST dep, T flat/neg, ant/lat/inf
--- NOTE | 2022-12-05 10:15 | DI.RAD_ITS ---
Exam(s) XR HUMERUS LT EXAM: XR HUMERUS LT CLINICAL HISTORY: ecchymosis. TECHNIQUE: 2D digital imaging was performed. Two views. COMPARISON: No exams were available for comparison FINDINGS: BONES: No acute fracture is present. No bony destructive lesion is seen. Visualized portion of elbow and shoulder joints are unremarkable. SOFT TISSUE: Normal. IMPRESSION: Unremarkable radiographs of the left humerus. DATA REPOSITORY: RADIATION DOSE DELIVERED:
--- NOTE | 2022-12-05 10:21 | DI.RAD_ITS ---
Exam(s) XR CHEST 1V IN DI DEPT EXAM: XR CHEST 1V IN DI DEPT CLINICAL HISTORY: fever TECHNIQUE: 2D digital imaging was performed. COMPARISON: CR,XR XR CHEST 1V IN DI DEPT from 06/20/2022 FINDINGS: The inferior-most portion of the lung bases are not included on the exam. LUNGS: Clear. No pleural abnormality seen. HEART: Enlarged, unchanged. AORTA: Normal diameter. BONES: Unremarkable for age. Soft tissues: Unremarkable. IMPRESSION: Limited exam. No acute findings. DATA REPOSITORY: RADIATION DOSE DELIVERED:
[2022-12-05 10:41] LABS: Abs Immature Grans 0.04 10^3/uL (0.0-0.06); Absolute Basophil Count 0.06 10^3/uL (0.0-0.2); Absolute Eosinophil Count 0.12 10^3/uL (0.0-0.7); Absolute Lymphocyte Count 2.76 10^3/uL (1.2-3.4); Absolute Monocyte Count 0.76 10^3/uL (0.1-0.8); Absolute Neutrophil Count 5.25 10^3/uL (1.2-6.7); Basophils % 0.7; Eosinophils % 1.3; HGB 17.8 g/dL (13.5-17.5); Immature Grans % 0.4; Lymphocytes % 30.7; MCH 31.6 pg (27.0-33.0); MCHC 35.6 % (32.0-36.0); MCV 89 fL (80-95); MPV 11.7 fL (8.0-11.0); Monocytes % 8.5; Neutrophils % 58.4; Platelet Count 233 10^3/uL (130-400); RBC 5.64 10^6/uL (4.36-5.78); RDW-SD 39.3 fL; WBC 8.99 10^3/uL (4.4-10.8)
[2022-12-05 10:47] LABS: Lactate 1.3 mmol/L (0.6-1.4)
[2022-12-05 10:48] LABS: Ammonia 29 umol/L (11-32)
[2022-12-05 11:06] LABS: ALT 28 U/L (16-63); AST 27 U/L (15-37); Albumin 3.8 g/dL (3.4-5.0); Alkaline Phosphatase 83 U/L (46-116); Anion Gap 11.1 mmol/L (3-11); BUN 22 mg/dL (7-18); Bilirubin, Total 0.6 mg/dL (0.2-1.0); CO2 26.9 mmol/L (21.0-32.0); CREATININE 0.8 mg/dL (0.70-1.30); Calcium 9.8 mg/dL (8.5-10.1); Chloride 102 mmol/L (98-107); ETHANOL BLOOD < 3.0 mg/dL (<10); Estimated GFR 99.44 (mL/min/1.73m2); Glucose 152 mg/dL (74-106); Potassium 3.3 mmol/L (3.5-5.1); Sodium 140 mmol/L (136-145); Total Protein 7.8 g/dL (6.4-8.2)
[2022-12-05 11:10] LABS: Bilirubin Negative (Negative); Blood Negative (Negative); Clarity Clear (Clear); Glucose Negative (Negative); Ketones Trace mg/dL (Negative); Leukocyte Esterase Negative (Negative); Nitrite Negative (Negative); Urobilinogen 0.2 mg/dL (Up to 0.2)
--- NOTE | 2022-12-05 11:15 | DI.CT_ITS ---
Exam(s) CT HEAD CERVICAL SPINE WO EXAM: CT HEAD CERVICAL SPINE WO CLINICAL HISTORY: ams. TECHNIQUE: Imaging Protocol: Axial computed tomography images with coronal and sagittal reformatted images were created and reviewed COMPARISON: CT CT BRAIN NECK CTA from 06/22/2022 FINDINGS: Head CT Ventricles and Extra axial spaces: Normal in size and morphology for the patient's age. Hemorrhage: None. Cerebral parenchyma: Mild atrophy. No evidence of mass or infarct. Midline shift: None. Brainstem/Cerebellum: Normal. Calvarium: Normal. Visualized Paranasal sinuses/Mastoids: Clear. Cervical Spine CT BONES: Vertebral body heights are maintained. Alignment is normal. There is no evidence of acute frac ture. Degenerative disc changes and facet degenerative changes are seen . SOFT TISSUES: No paraspinal hematoma. The airway appears intact. No pneumothorax is seen at the lung apices. IMPRESSION: Head CT: No acute abnormality. C-spine CT: Degenerative changes, no acute abnormality. RADIATION DOSE DELIVERED: 1,801.99mGy.cm Total DLP DATA REPOSITORY: All CT scans at this facility are submitted to the National Radiology Data Registry (NRDR) Dose Index Registry (DIR) with the [employer] (ACR). RADIATION OPTIMIZATION: All CT scans at this facility use at least one of these dose optimization te chniques: automated exposure control; mA and/or kV adjustment per patient size (includes targeted exa ms where dose is matched to clinical indication); or iterative reconstruction.
[2022-12-05 11:20] LABS: *AMPHETAMINES SCREEN URINE Negative (Negative); *BARBITURATES SCREEN URINE Negative (Negative); *BENZODIAZEPINES SCREEN URINE Negative (Negative); Cannabinoids THC Negative (Negative); Cocaine Screen,Urine Negative (Negative); METHADONE URINE SCREEN Negative (Negative); OPIATES URINE SCREEN Negative (Negative)
[2022-12-05 11:21] LABS: Tricyclic Antidepressants Negative (Negative)
[2022-12-05 12:20] LABS: Magnesium 1.7 mg/dL (1.8-2.4); Troponin I < 50 ng/L (<or=60)
--- NOTE | 2022-12-05 12:30 | DI.MRI_ITS ---
Exam(s) MR BRAIN WO EXAM: MR BRAIN WO CLINICAL HISTORY: confusion TECHNIQUE: Multiplanar multisequence MRI of the brain was performed. COMPARISON: CT CT HEAD CERVICAL SPINE WO from 12/05/2022 FINDINGS: Exam is limited by patient motion. VENTRICLES AND EXTRA AXIAL SPACES: Normal in size and morphology for the patient's age. MIDLINE SHIFT: None. CEREBRAL PARENCHYMA: No focus of restricted diffusion to suggest acute infarct. No space-occupying le anna identified. Mild osteopenia. No significant white matter changes. HEMORRHAGE: None. BRAINSTEM/CEREBELLUM: Normal. VISUALIZED PARANASAL SINUSES/MASTOIDS:Clear. Vasculature: Normal flow void. PITUITARY GLAND: Unremarkable. ORBITS: Unremarkable. IMPRESSION: Limited exam due to motion. No acute abnormality. DATA REPOSITORY:
--- NOTE | 2022-12-05 12:41 | HPE_ITS ---
Date of service: 12/05/22 Time of Service: 12:41 Assessment and Plan Assessment and plan (1) Alteration in thought content as evidenced by delusions: Status: Acute Assessment and plan: medical screening with no acute medical condition to explain his altered mental status. no source of infection, MRI unrevealing, vitals are stable. referred for observation under hospitalist services. resume home medication. (2) Diabetes mellitus, type 2: Status: Chronic Assessment and plan: Patient is a type II diabetic. He currently takes metformin 1000 mg p.o. twice daily. Monitor his blood sugars before meals with sliding scale insulin if needed --Carb controlled diet (3) Chronic schizophrenia: Status: Chronic Assessment and plan: history of chronic schizophrenia which is treated with clozapine 100 mg at at bedtime and divalproex 2000 mg at at bedtime. continue home medications. (4) Hypothyroidism: Status: Chronic Assessment and plan: check TSH --[place] thyroid (5) DVT prophylaxis: Status: Acute Assessment and plan: fully anticoagulated on eliquis. (6) Discharge planning issues: Status: Acute Assessment and plan: plan to discharge back to his home situation with resumption of services and community resources. discussed with DR Hickman History of Present Illness History of Present Illness Chief Complaint: altered mental status Narrative: This is a 61-year-old gentleman with history of schizophrenia, ischemic stroke, hypothyroidism who presented to the ED for change in his behaviors. he reportedly experiencing delusions. he has not had suicidal or homicidal ideation, he has not had behavioral issues. medically he was screened and shows no medical source of this change. he was not felt safe for discharge so hospitalist was requested to observe him overnight. Review of Systems All systems reviewed & are unremarkable except as noted in HPI and below PFSH All Active Problems (Updated 12/05/22 @ 15:38 by Odalys Johns NP) Discharge planning issues (Acute) DVT prophylaxis (Acute) Medication monitoring encounter (Acute) Acute ischemic stroke (Acute) Hypothyroidism (Chronic) C1 cervical fracture (Acute) Diabetes mellitus, type 2 (Chronic) Chronic schizophrenia (Chronic) Ambulatory dysfunction (Acute) Alteration in thought content as evidenced by delusions (Acute) BRENNEN (acute kidney injury) (Acute) Medical History Afib Atrial enlargement, bilateral BCC (basal cell carcinoma of skin) Bipolar 1 disorder (02/04/16) Bipolar disorder Chronic constipation Diverticulosis Facial basal cell cancer (02/04/16) Heel ulcer HTN (hypertension) HTN (hypertension) (02/04/16) Non-ST elevation [place] (NSTEMI) OAB (overactive bladder) Obesity RLS (restless legs syndrome) Screening for colorectal cancer 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 (10/22/16) Urinary incontinence Vitreous floaters of right eye Weight gain (10/22/16) Surgical History Colonoscopy - MAC (01/25/16) 2010 Excision, Lipoma Hx of cholecystectomy Hydrocelectomy Tonsillectomy Family History Mother No problems noted. Father Heart disease Brother Alcohol abuse Social History Smoking/Tobacco Use Status: Current every day Tobacco Type: cigarettes Smoking risk assessment performed?: Yes Alcohol Intake: current Alcohol Intake frequency: holidays/special occasions only Alcohol type: beer and hard liquor Drug use: Current Sobriety Substance use type: does not use Housing: assisted living facility Current gender identity: male Do you feel safe at home: Yes Do you feel safe in your relationship?: Yes Meds Allergies and Home Medications Allergies Allergy/AdvReac Type Severity Reaction Status Date / Time Penicillins AdvReac Intermediate black out Unverified 10/29/22 13:41 gabapentin AdvReac Mild Headache Unverified 10/29/22 13:41 niacin AdvReac Mild turn red Unverified 10/29/22 13:41 Home Medications Medication Instructions Recorded Confirmed Type melatonin 3 mg tablet,extended 3 mg PO HS PRN 01/23/16 12/05/22 History release thyroid (pork) 90 mg tablet 90 mg PO QAM 01/23/16 12/05/22 History ([place] Thyroid) apixaban 5 mg tablet (Eliquis) 5 mg PO BID #180 tabs 07/20/17 12/05/22 Rx sennosides 8.6 mg tablet (senna) 8.6 mg PO BID PRN 1 day 07/28/17 12/05/22 History albuterol sulfate 90 mcg/actuation 2 puff inhalation Q4H PRN 03/27/19 12/05/22 History aerosol inhaler (Ventolin HFA) ropinirole 1 mg tablet 1 mg PO DIRECTED 03/27/19 12/05/22 History docusate sodium 100 mg capsule 200 mg PO BID PRN 11/13/20 12/05/22 History furosemide 20 mg tablet 40 mg PO DAILY 08/10/21 12/05/22 History metformin 1,000 mg tablet 1,000 mg PO BID 09/15/21 12/05/22 History polyethylene glycol 3350 17 17 g PO BID PRN 09/15/21 12/05/22 History gram/dose oral powder (Miralax) divalproex 500 mg tablet,extended 2,000 mg PO HS 09/16/21 12/05/22 History release 24 hr loratadine 10 mg tablet 10 mg PO DAILY PRN 09/16/21 12/05/22 History clozapine 200 mg tablet 400 mg PO HS 11/14/21 12/05/22 History lorazepam 0.5 mg tablet 0.5 mg PO .QH PRN 11/14/21 12/05/22 History clozapine 100 mg tablet 100 mg PO QHS 03/29/22 12/05/22 History magnesium chloride 64 mg 64 mg PO DAILY #30 tabs 03/30/22 12/05/22 Rx (magnesium chloride) tablet metoprolol succinate 25 mg 12.5 mg PO DAILY #30 tabs 03/30/22 12/05/22 Rx tablet,extended release 24 hr triamcinolone acetonide 0.1 % 1 applic topical BID 04/17/22 12/05/22 History topical cream potassium chloride 20 mEq 10 meq PO DAILY 06/20/22 12/05/22 History tablet,extended release atorvastatin 10 mg tablet (Lipitor) 40 mg PO QPM #0 tabs 06/25/22 12/05/22 Rx Exam Const General: comfortable and disheveled Orientation: alert, awake and oriented x3 Limitations: behavioral limitations Neck Neck: trachea midline and supple Resp Effort & Inspection: normal respiratory effort and able to speak in complete sentences Auscultation: clear to auscultation bilaterally Cardio Rate: regular rate GI Palpation: soft and nontender Auscultation: normal bowel sounds Neuro General: patient alert, patient awake, patient oriented x3 and moves all extremities Cognition: abnormal cognition Extrem General: no pedal edema Psych Appearance: disheveled Mental Status: other (awake, alert;) Mood: congruent mood, labile mood and other (awake, alert;) Affect: labile affect Thought Process: loose association Insight: limited and poor Judgment: limited and poor Results Labs 12/05/22 10:25 12/05/22 10:44 Labs: Laboratory Results - last 24 hr 12/05/22 12/05/22 12/05/22 10:25 10:25 10:25 WBC 8.99 RBC 5.64 Hgb 17.8 H Hct 50.0 MCV 89 MCH 31.6 MCHC 35.6 RDW 12.0 Plt Count 233 MPV 11.7 H Immature Gran % 0.4 Neutrophils % 58.4 Lymphocytes % 30.7 Monocytes % 8.5 Eosinophils % 1.3 Basophils % 0.7 Nucleated RBC % 0.0 Absolute Neutrophils 5.25 Absolute Lymphocytes 2.76 Absolute Monocytes 0.76 Absolute Eosinophils 0.12 Absolute Basophils 0.06 VBG Lactate Sodium Potassium Chloride Carbon Dioxide Anion Gap BUN Creatinine Est GFR (CKD-EPI 2020) Glucose Calcium Magnesium 1.7 L Total Bilirubin AST ALT Alkaline Phosphatase Ammonia 29 Troponin I < 50 Total Protein Albumin Urine Color Urine Clarity Urine pH Ur Specific [place] Urine Protein Urine Ketones Urine Blood Urine Nitrite Urine Bilirubin Urine Urobilinogen Ur Leukocyte Esterase Urine Glucose Urine Opiates Screen Urine Methadone Screen Ur Barbiturates Screen Valproic Acid Ur Tricyclics Screen Ur Amphetamines Screen U Benzodiazepines Scrn Urine Cocaine Screen Ur THC Screen Ethyl Alcohol 12/05/22 12/05/22 12/05/22 10:25 10:44 10:44 WBC RBC Hgb Hct MCV MCH MCHC RDW Plt Count MPV Immature Gran % Neutrophils % Lymphocytes % Monocytes % Eosinophils % Basophils % Nucleated RBC % Absolute Neutrophils Absolute Lymphocytes Absolute Monocytes Absolute Eosinophils Absolute Basophils VBG Lactate 1.3 Sodium 140 Potassium 3.3 L Chloride 102 Carbon Dioxide 26.9 Anion Gap 11.1 H BUN 22 H Creatinine 0.8 Est GFR (CKD-EPI 2020) 99.44 Glucose 152 H Calcium 9.8 Magnesium Total Bilirubin 0.6 AST 27 ALT 28 Alkaline Phosphatase 83 Ammonia Troponin I Total Protein 7.8 Albumin 3.8 Urine Color Urine Clarity Urine pH Ur Specific [place] Urine Protein Urine Ketones Urine Blood Urine Nitrite Urine Bilirubin Urine Urobilinogen Ur Leukocyte Esterase Urine Glucose Urine Opiates Screen Urine Methadone Screen Ur Barbiturates Screen Valproic Acid 20.0 Ur Tricyclics Screen Ur Amphetamines Screen U Benzodiazepines Scrn Urine Cocaine Screen Ur THC Screen Ethyl Alcohol < 3.0 12/05/22 12/05/22 10:54 10:54 WBC RBC Hgb Hct MCV MCH MCHC RDW Plt Count MPV Immature Gran % Neutrophils % Lymphocytes % Monocytes % Eosinophils % Basophils % Nucleated RBC % Absolute Neutrophils Absolute Lymphocytes Absolute Monocytes Absolute Eosinophils Absolute Basophils VBG Lactate Sodium Potassium Chloride Carbon Dioxide Anion Gap BUN Creatinine Est GFR (CKD-EPI 2020) Glucose Calcium Magnesium Total Bilirubin AST ALT Alkaline Phosphatase Ammonia Troponin I Total Protein Albumin Urine Color Yellow Urine Clarity Clear Urine pH 6.0 Ur Specific [place] 1.020 Urine Protein Negative Urine Ketones Trace H Urine Blood Negative Urine Nitrite Negative Urine Bilirubin Negative Urine Urobilinogen 0.2 Ur Leukocyte Esterase Negative Urine Glucose Negative Urine Opiates Screen Negative Urine Methadone Screen Negative Ur Barbiturates Screen Negative Valproic Acid Ur Tricyclics Screen Negative Ur Amphetamines Screen Negative U Benzodiazepines Scrn Negative Urine Cocaine Screen Negative Ur THC Screen Negative Ethyl Alcohol Last Vital Signs Temp 36.2 C L 12/05/22 09:52 Pulse 90 12/05/22 09:52 Resp 18 12/05/22 09:52 BP 137/78 12/05/22 09:52 Pulse Ox 99 12/05/22 09:52 Time Spent Time spent with Patient: <40 minutes Time was spent: preparing to see the patient(eg.review tests), obtaining and/or reviewing separately otained hiistory, ordering medications,tests, procedures an d indepentently interpreting results
[2022-12-05] MEDS: LORazepam 2 MG/ML VIAL 1 MG IVP (13:00)
[2022-12-05 14:13] LABS: Troponin I < 50 ng/L (<or=60)
[2022-12-05 16:29] LABS: TSH (W/Ref FT4) 0.88 uIU/mL (0.36-3.74)
[2022-12-05] MEDS: rOPINIRole 1 MG TAB PO (17:40)
[2022-12-05] MEDS: metFORMIN 500 MG TAB 1000 MG PO (17:40)
[2022-12-05] MEDS: Melatonin 3 MG TAB PO (21:17)
[2022-12-05] MEDS: Atorvastatin 10 MG TAB PO (21:18)
[2022-12-05] MEDS: Apixaban 5 MG TAB PO (21:18)
[2022-12-05] MEDS: Divalproex Sodium 500 MG TAB.ER.24H PO (21:26)
[2022-12-06 06:29] VITALS: BP 108/77; PULSE 81; RESP 14; TEMP 36; O2SAT 93
[2022-12-06] MEDS: Magnesium Chloride 64 MG TABCR PO (08:19)
[2022-12-06] MEDS: Potassium Chloride 10 MEQ TABCR PO (08:19)
[2022-12-06] MEDS: Apixaban 5 MG TAB PO (08:19)
[2022-12-06] MEDS: Furosemide 40 MG TAB PO (08:19)
[2022-12-06] MEDS: metFORMIN 500 MG TAB 1000 MG PO (08:19)
[2022-12-06] MEDS: Senna TAB 1 TAB PO (08:29)
[2022-12-06] MEDS: Metoprolol CR 25 MG TABCR 12.5 MG PO (08:29)
[2022-12-06] MEDS: Docusate Sodium 100 MG CAP 200 MG PO (08:29)
[2022-12-06] MEDS: Polyethylene Glycol 3350 17 GM PACKET PO (08:30)
--- NOTE | 2022-12-06 09:01 | PDOC.CMIN ---
Date of service: 12/06/22 Time of Service: 09:01 Care Management Initial Assmt Initial Assessment REASON FOR HOSPITALIZATION:: delusions PREVIOUS FUNCTIONAL STATUS/SOCIAL/FAMILY SUPPORTS:: Judd lives alone in an apartment in [facility]. He is a [employer] client, and has twice daily medication drops through [employer]. He receives meals on Wheels, but is independent with his ADL's and uses [facility] private vehicle for transportation. CURRENT FUNCTIONAL STATUS:: Judd was sitting up in a chair when CM met with him. He had been discharged and was trying to arrange transportation. He stated his friend Flavio would be coming tp take him home. Judd's clothes had ADVANCE DIRECTIVES:: On file. Chika GARCIA Has patient been provided with info about the portal/API?: Yes Did the patient sign up for the portal?: No CODE STATUS:: Full Code INSURANCE COVERAGE / FINANCIAL ISSUES:: Medicare. Medicaid. CURRENT HOME/COMMUNITY SERVICES/EQUIPMENT:: Judd is a [employer] client, receives help with medication management and compliance. Twice daily medication drops. Uses a Walker: PRN. [facility] transportation. Receives [facility]. PRIMARY CARE PHYSICIAN:: Nisha Carrillo POTENTIAL DISCHARGE NEEDS:: follow up with PCP and plan of care PATIENT/FAMILY EDUCATION NEEDS:: Review discharge instructions, limitations, medications and plan to follow up with community providers. Discuss ask me three. TRANSPORTATION:: [facility] private car coordinated by [employer]:: Judd was discharged today. Judd was taken down stairs to the lobby to wait for his ride with his friend Flavio accompanied by a nurse. In the meantime CM contacted [facility] for transport as Judd could not confirm Flavio was actually coming. Judd decided to leave the premises and walk home before transport arrived. CM contacted the [employer] worker healthcare economics consultant, Ирина, and informed her that Judd had left unaccompanied. PFSH All Active Problems (Updated 12/05/22 @ 15:38 by Odalys Johns NP) Discharge planning issues (Acute) DVT prophylaxis (Acute) Medication monitoring encounter (Acute) Acute ischemic stroke (Acute) Hypothyroidism (Chronic) C1 cervical fracture (Acute) Diabetes mellitus, type 2 (Chronic) Chronic schizophrenia (Chronic) Ambulatory dysfunction (Acute) Alteration in thought content as evidenced by delusions (Acute) BRENNEN (acute kidney injury) (Acute) Medical History Afib Atrial enlargement, bilateral BCC (basal cell carcinoma of skin) Bipolar 1 disorder (02/04/16) Bipolar disorder Chronic constipation Diverticulosis Facial basal cell cancer (02/04/16) Heel ulcer HTN (hypertension) HTN (hypertension) (02/04/16) Non-ST elevation DE (NSTEMI) OAB (overactive bladder) Obesity RLS (restless legs syndrome) Screening for colorectal cancer 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 (10/22/16) Urinary incontinence Vitreous floaters of right eye Weight gain (10/22/16) Surgical History Colonoscopy - MAC (01/25/16) 2010 Excision, Lipoma Hx of cholecystectomy Hydrocelectomy Tonsillectomy Family History Mother No problems noted. Father Heart disease Brother Alcohol abuse Social History Smoking/Tobacco Use Status: Current every day Tobacco Type: cigarettes Smoking risk assessment performed?: Yes Alcohol Intake: current Alcohol Intake frequency: holidays/special occasions only Alcohol type: beer and hard liquor Drug use: Current Sobriety Substance use type: does not use Housing: assisted living facility Current gender identity: male Do you feel safe at home: Yes Do you feel safe in your relationship?: Yes
--- NOTE | 2022-12-06 11:18 | DSE_ITS ---
Date of service: 12/06/22 Time of Service: 11:19 DS: Diagnosis Discharge Diagnosis (1) Alteration in thought content as evidenced by delusions: Status: Acute (2) Diabetes mellitus, type 2: Status: Chronic (3) Chronic schizophrenia: Status: Chronic (4) Hypothyroidism: Status: Chronic Discharge Plan Disposition Patient Disposition: Home Condition: Stable Discharge Details Reason For Visit: Altered Mental Status Admit Date/Time: 12/05/22 12:38 Admit Provider: Brice Hickman Attending Provider: Brice Hickman Primary Care Provider: Nisha Carrillo [facility] Course Hospital Course: This is 61 year old male with history of schizophrenia who presented to the ED with reports of increased delusions and change from his usual mental status. he underwent a medical screening and no acute medical condition found to explain his change. He was not suicidal or homicidal and with no behavioral issues. Hospitalist was requested to observe patient which he was overnight. Medically he remained stable, he was eating and drinking and appears at his baseline today. He is requesting discharge to home and is stable so appropriate. discharge discussed with Dr Hickman. Home Meds and New Rx's Prescriptions: Continued Eliquis 5 MG tablet 5 mg PO BID Qty: 180 12RF sennosides [senna] 8.6 MG tablet 8.6 mg PO BID PRN1 Days Rx Instructions: prn divalproex 500 mg tablet extended release 24 hr 2,000 mg PO HS Rx Instructions: takes at 1600 loratadine 10 mg tablet 10 mg PO DAILY PRN clozapine 200 mg tablet 400 mg PO HS Rx Instructions: With 100 mg tab for total of 500 mg po qhs lorazepam 0.5 mg tablet 0.5 mg PO .QH PRN triamcinolone acetonide 0.1 % cream 1 applic topical BID Kirwin Thyroid 90 MG tablet 90 mg PO QAM melatonin 3 MG tablet extended release 3 mg PO HS PRN ropinirole 1 mg Tablet 1 mg PO DIRECTED Rx Instructions: DAILY at 1600 albuterol sulfate [Ventolin HFA] 90 mcg/actuation Hfa Aerosol Inhaler 2 puff INHALATION Q4H PRN polyethylene glycol 3350 [Miralax] 17 gram/dose powder 17 g PO BID PRN Patient Comments: 17 gram by mouth once a day as needed metformin 1,000 mg tablet 1,000 mg PO BID potassium chloride 20 mEq tablet extended release 10 meq PO DAILY atorvastatin [Lipitor] 10 MG tablet 40 mg PO QPM Qty: 0 0RF docusate sodium 100 mg capsule 200 mg PO BID PRN furosemide 20 mg tablet 40 mg PO DAILY clozapine 100 mg tablet 100 mg PO QHS Rx Instructions: Take in combination with two 200 mg tabs for total dose of 500 mg po qhs metoprolol succinate 25 mg Tablet Extended Release 24 Hr 12.5 mg PO DAILY Qty: 30 0RF magnesium chloride 64 mg magnesium tablet 64 mg PO DAILY Qty: 30 0RF Discharge Instructions Instructions: Altered Mental Status (ED) Referrals: Nisha Carrillo MD [Primary Care Provider] - Activity:: Activity as Tolerated Equipment/Supplies:: No Equipment Needed Diet:: As Tolerated Discharge Orders Discharge Orders: Discharge Order (Routine); Ordered 12/06/22 Ordered By: Odalys Johns DS: Summary Time Spent with Patient providing and/or coordinating discharge services: Less than 30 minutes Status at Discharge Functional status at discharge: independent ambulation Overall status at discharge: patient is back to baseline Mental Status: other (awake, alert;) Speech and Movement: speech and movement normal Mood: congruent mood and other (awake, alert;) Affect: normal affect Exam Const General: comfortable and disheveled Orientation: alert, awake and oriented x3 Limitations: behavioral limitations Neck Neck: trachea midline and supple Resp Effort & Inspection: normal respiratory effort and able to speak in complete sentences Auscultation: clear to auscultation bilaterally Cardio Rate: regular rate GI Palpation: soft and nontender Auscultation: normal bowel sounds Neuro General: patient alert, patient awake, patient oriented x3 and moves all extremities Cognition: abnormal cognition Extrem General: no pedal edema Psych Appearance: disheveled Mental Status: other (awake, alert;) Speech and Movement: speech and movement normal Mood: congruent mood and other (awake, alert;) Affect: normal affect Insight: limited and poor Judgment: limited and poor DS: Data Vitals/I&O Vitals and I&O: Vital Signs Temperature 36.0 C L 12/06/22 06:29 Temperature Source Tympanic 12/06/22 06:29 Pulse 81 12/06/22 06:29 Pulse Rhythm Regular 12/06/22 08:30 Pulse 79 12/05/22 13:40 Respiratory Rate 14 12/06/22 06:29 Respiratory Effort Normal 12/06/22 08:30 Respiratory Depth Normal 12/06/22 08:30 Respiratory Pattern Normal 12/06/22 08:30 Blood Pressure 108/77 12/06/22 06:29 Blood Pressure Mean 90 12/05/22 13:33 Blood Pressure Position Sitting 12/05/22 09:52 Pulse Oximetry 93 12/06/22 06:29 Oxygen Delivery Method Room Air 12/06/22 06:29 Oxygen Flow Rate 0 12/06/22 06:29 Pain Level 0 12/05/22 15:03 Intake & Output 12/05/22 12/05/22 12/06/22 11:59 23:59 11:59 Intake Total 240 / 240 Balance 240 / 240 Weight 108.862 kg 106.633 kg Intake: Oral 240 / 240 Other: Urine Appearance Clear Data Completed and Pending Labs on day of discharge: Labs from last 24 hours 12/05/22 12/05/22 12/05/22 13:40 13:40 10:54 Magnesium Troponin I < 50 TSH 0.88 Urine Opiates Screen Negative Urine Methadone Screen Negative Ur Barbiturates Screen Negative Valproic Acid Ur Tricyclics Screen Negative Ur Amphetamines Screen Negative U Benzodiazepines Scrn Negative Urine Cocaine Screen Negative Ur THC Screen Negative 12/05/22 12/05/22 10:25 10:25 Magnesium 1.7 L Troponin I < 50 TSH Urine Opiates Screen Urine Methadone Screen Ur Barbiturates Screen Valproic Acid 20.0 Ur Tricyclics Screen Ur Amphetamines Screen U Benzodiazepines Scrn Urine Cocaine Screen Ur THC Screen PFSH All Active Problems (Updated 12/05/22 @ 15:38 by Odalys Johns NP) Discharge planning issues (Acute) DVT prophylaxis (Acute) Medication monitoring encounter (Acute) Acute ischemic stroke (Acute) Hypothyroidism (Chronic) C1 cervical fracture (Acute) Diabetes mellitus, type 2 (Chronic) Chronic schizophrenia (Chronic) Ambulatory dysfunction (Acute) Alteration in thought content as evidenced by delusions (Acute) BRENNEN (acute kidney injury) (Acute) Medical History Afib Atrial enlargement, bilateral BCC (basal cell carcinoma of skin) Bipolar 1 disorder (02/04/16) Bipolar disorder Chronic constipation Diverticulosis Facial basal cell cancer (02/04/16) Heel ulcer HTN (hypertension) HTN (hypertension) (02/04/16) Non-ST elevation ID (NSTEMI) OAB (overactive bladder) Obesity RLS (restless legs syndrome) Screening for colorectal cancer 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 (10/22/16) Urinary incontinence Vitreous floaters of right eye Weight gain (10/22/16) Surgical History Colonoscopy - MAC (01/25/16) 2010 Excision, Lipoma Hx of cholecystectomy Hydrocelectomy Tonsillectomy Family History Mother No problems noted. Father Heart disease Brother Alcohol abuse Social History Smoking/Tobacco Use Status: Current every day Tobacco Type: cigarettes Smoking risk assessment performed?: Yes Alcohol Intake: current Alcohol Intake frequency: holidays/special occasions only Alcohol type: beer and hard liquor Drug use: Current Sobriety Substance use type: does not use Housing: assisted living facility Current gender identity: male Do you feel safe at home: Yes Do you feel safe in your relationship?: Yes Time Spent with Patient Time Spent with Patient: <45 minutes Time was spent: preparing to see the patient(eg.review tests), obtaining and/or reviewing separately otained hiistory and care coordination
--- NOTE | 2022-12-06 13:58 | NUR.NOTE ---
Pt stated he did not want to wait for his ride Derek since he had been discharged and could leave whenever. This RN escorted him downstairs where he asked about [facility]. CM was aware and calling [facility]. This RN went inside to f/u with CM and pt decided to leave. Of own accord pt began walking down the driveway and towards the main road. Nursing wastewater supervisor aware. CM aware. CC aware.
--- NOTE | 2022-12-06 17:58 | CMDISCH_ITS ---
Date of service: 12/06/22 Time of Service: 17:59 LACE Index Scoring Tool Questions: Length of Stay (in days): 1 Was the patient admitted via the E.D.?: Yes Comorbidities: Previous M.I. and Diabetes w/o Complication E.D. Visits: 3 Answers: Total Score: 9 Risk of Readmission: Low Risk Care Management Discharge Plan Reason for Hospitalization: delusions Discharge Plan: Judd was discharged today after meeting with HOME CARE PROVIDER worker Pieter ramon. [facility] with his friend Flavio accompanied by a nurse. In the meantime CM contacted [facility] for transport as Judd could not confirm Flavio was actually coming. Judd decided to leave the premises and walk home before transport arrived. CM contacted the HOME CARE PROVIDER worker extension edger, Ирина, and informed her that Judd had left unaccompanied. Patient/Family Education Needs: Review discharge instructions, limitations, medications and plan to follow up with community providers. Discuss ask me three.
--- NOTE | 2022-12-07 10:19 | ED.GENADUL_ITS ---
Discharge Plan Disposition Patient Disposition: Admit to [facility] Condition: Stable Discharge Details Clinical Impression: Alteration in thought content as evidenced by delusions Admit Date/Time: 12/05/22 12:38 Admit Provider: Brice Hickman Attending Provider: Brice Hickman Primary Care Provider: Nisha Carrillo ED Provider: Sonya Butcher Discharge Data Discharge Date/Time-TO BE ENTERED AT DEPARTURE: 12/05/22 14:22 Medical Decision Making 61-year-old male with history of schizophrenia, presents confused with hallucinations and delusions, he is ambulatory and alert, he has a negative CT head and cervical spine per radiology interpretation my review His diagnostic labs are reassuring, no evidence of metabolic encephalopathy Valproic acid level is low, 20, troponin and EKG do not show evidence of acute ischemia or injury, diagnostic labs reviewed by me X-ray of patient's upper arm does not show evidence of acute fracture No evidence of urinary tract infection I did consider CVA, no evidence of acute abnormality on CT head or cervical spine I did consider urinary tract infection, urinalysis is in normal limits I suspect patient symptoms are medication related and he did receive his morning dose of valproic acid so we will be sure he receives his evening dose of valproic acid At this time patient is confused and unsafe to live independently, he will need admission to this facility, likely for medication administration and clearance of delusions and alteration in mental status He will be admitted under the care of Dr. Bhardwaj, he was accepted to his service. Medical Records Medical records reviewed: Yes I reviewed the patient's medical records. Lab Data Lab results reviewed: Yes I reviewed the patient's lab results. HPI General Date/Time Provider Initiated Documentation: 12/05/22 09:49 . HPI Narrative: This 61-year-old male with a history of paranoid schizophrenia presents with acute alteration of mental status for the past 3 days. Per his [facility] chest worker has not been taking his valproic acid in the evenings but is taking his morning dose which is monitored. Patient does not report a fall but he does have a bruise on his left upper arm. There is no injury reported. Patient denies illicit drug use. He is unable to supply much history so the majority of history is obtained from [facility] chest worker. His home was in similar condition to the prior assessments, however patient is quite tangential and appears to be hallucinating per [facility] chest worker. Related Data Home Medications Medication Instructions Recorded Confirmed melatonin 3 mg tablet,extended 3 mg PO HS PRN 01/23/16 12/05/22 release thyroid (pork) 90 mg tablet 90 mg PO QAM 01/23/16 12/05/22 ([place] Thyroid) apixaban 5 mg tablet (Eliquis) 5 mg PO BID #180 tabs 07/20/17 12/05/22 sennosides 8.6 mg tablet (senna) 8.6 mg PO BID PRN 1 day 07/28/17 12/05/22 albuterol sulfate 90 mcg/actuation 2 puff inhalation Q4H PRN 03/27/19 12/05/22 aerosol inhaler (Ventolin HFA) ropinirole 1 mg tablet 1 mg PO DIRECTED 03/27/19 12/05/22 docusate sodium 100 mg capsule 200 mg PO BID PRN 11/13/20 12/05/22 furosemide 20 mg tablet 40 mg PO DAILY 08/10/21 12/05/22 metformin 1,000 mg tablet 1,000 mg PO BID 09/15/21 12/05/22 polyethylene glycol 3350 17 17 g PO BID PRN 09/15/21 12/05/22 gram/dose oral powder (Miralax) divalproex 500 mg tablet,extended 2,000 mg PO HS 09/16/21 12/05/22 release 24 hr loratadine 10 mg tablet 10 mg PO DAILY PRN 09/16/21 12/05/22 clozapine 200 mg tablet 400 mg PO HS 11/14/21 12/05/22 lorazepam 0.5 mg tablet 0.5 mg PO .QH PRN 11/14/21 12/05/22 clozapine 100 mg tablet 100 mg PO QHS 03/29/22 12/05/22 magnesium chloride 64 mg 64 mg PO DAILY #30 tabs 03/30/22 12/05/22 (magnesium chloride) tablet metoprolol succinate 25 mg 12.5 mg PO DAILY #30 tabs 03/30/22 12/05/22 tablet,extended release 24 hr triamcinolone acetonide 0.1 % 1 applic topical BID 04/17/22 12/05/22 topical cream potassium chloride 20 mEq 10 meq PO DAILY 06/20/22 12/05/22 tablet,extended release atorvastatin 10 mg tablet (Lipitor) 40 mg PO QPM #0 tabs 06/25/22 12/05/22 Previous Rx's Medication Instructions Recorded apixaban 5 mg tablet (Eliquis) 5 mg PO BID #180 tabs 07/20/17 magnesium chloride 64 mg 64 mg PO DAILY #30 tabs 03/30/22 (magnesium chloride) tablet metoprolol succinate 25 mg 12.5 mg PO DAILY #30 tabs 03/30/22 tablet,extended release 24 hr atorvastatin 10 mg tablet (Lipitor) 40 mg PO QPM #0 tabs 06/25/22 Allergies Allergy/AdvReac Type Severity Reaction Status Date / Time Penicillins AdvReac Intermediate black out Unverified 10/29/22 13:41 gabapentin AdvReac Mild Headache Unverified 10/29/22 13:41 niacin AdvReac Mild turn red Unverified 10/29/22 13:41 General Stated Complaint: AMS/LOC MARY: 3 PFSH All Active Problems (Updated 12/07/22 @ 10:31 by SWAPNA Crawley) Medication monitoring encounter (Acute) Acute ischemic stroke (Acute) Hypothyroidism (Chronic) C1 cervical fracture (Acute) Diabetes mellitus, type 2 (Chronic) Chronic schizophrenia (Chronic) Ambulatory dysfunction (Acute) Alteration in thought content as evidenced by delusions (Acute) BRENNEN (acute kidney injury) (Acute) Medical History Afib Atrial enlargement, bilateral BCC (basal cell carcinoma of skin) Bipolar 1 disorder (02/04/16) Bipolar disorder Chronic constipation Diverticulosis Facial basal cell cancer (02/04/16) Heel ulcer HTN (hypertension) HTN (hypertension) (02/04/16) Non-ST elevation [place] (NSTEMI) OAB (overactive bladder) Obesity RLS (restless legs syndrome) Screening for colorectal cancer 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 (10/22/16) Urinary incontinence Vitreous floaters of right eye Weight gain (10/22/16) Surgical History Colonoscopy - MAC (01/25/16) 2011 Excision, Lipoma Hx of cholecystectomy Hydrocelectomy Tonsillectomy Family History Mother No problems noted. Father Heart disease Brother Alcohol abuse Social History Smoking/Tobacco Use Status: Current every day Tobacco Type: cigarettes Smoking risk assessment performed?: Yes Alcohol Intake: current Alcohol Intake frequency: holidays/special occasions only Alcohol type: beer and hard liquor Drug use: Current Sobriety Substance use type: does not use Housing: assisted living facility Current gender identity: male Do you feel safe at home: Yes Do you feel safe in your relationship?: Yes Exam Const General: cooperative and no acute distress Orientation: alert HENMT Head: normal to inspection Other: Moist mucous membranes Eyes Pupils: PERRL Neck Other: No midline tenderness Resp Effort & Inspection: normal respiratory effort Auscultation: clear to auscultation bilaterally Cardio Rate: regular rate Rhythm: regular rhythm GI Inspection: normal to inspection Skin General skin exam: no rashes or lesions noted Neuro General: patient alert and no focal motor deficits Cognition: abnormal cognition Speech: speech normal Gait: normal gait Motor: muscle tone normal throughout Sensory Exam: no sensory deficits noted Psych Appearance: disheveled Thought Process: tangential Thought Content: delusions, hallucinations, no homicidality and obsessions Insight: poor Judgment: poor Course Vital Signs Vital signs: Vital Signs Temperature 36.2 C L 12/05/22 09:52 Pulse 90 12/05/22 09:52 Respiratory Rate 18 12/05/22 09:52 Blood Pressure 137/78 12/05/22 09:52 Pulse Oximetry 99 12/05/22 09:52 Temperature 36.0 C L 12/06/22 06:29 Temperature Source Tympanic 12/06/22 06:29 Pulse 81 12/06/22 06:29 Pulse Rhythm Regular 12/06/22 08:30 Pulse 79 12/05/22 13:40 Respiratory Rate 14 12/06/22 06:29 Respiratory Effort Normal 12/06/22 08:30 Respiratory Depth Normal 12/06/22 08:30 Respiratory Pattern Normal 12/06/22 08:30 Blood Pressure 108/77 12/06/22 06:29 Blood Pressure Mean 90 12/05/22 13:33 Blood Pressure Position Sitting 12/05/22 09:52 Pulse Oximetry 93 12/06/22 06:29 Oxygen Delivery Method Room Air 12/06/22 06:29 Oxygen Flow Rate 0 12/06/22 06:29 Pain Level 0 12/05/22 15:03 Lab/Test Results Lab/Test Results: Laboratory Tests Range/Units 12/05/22 12/05/22 12/05/22 10:25 10:25 10:25 WBC (4.4-10.8) 10^3/uL 8.99 RBC (4.36-5.78) 10^6/uL 5.64 Hgb (13.5-17.5) g/dL 17.8 H Hct (40.0-50.0) % 50.0 MCV (80-95) fL 89 MCH (27.0-33.0) pg 31.6 MCHC (32.0-36.0) % 35.6 RDW (11.8-14.1) % 12.0 Plt Count (130-400) 10^3/uL 233 MPV (8.0-11.0) fL 11.7 H Immature Gran % 0.4 Neutrophils % 58.4 Lymphocytes % 30.7 Monocytes % 8.5 Eosinophils % 1.3 Basophils % 0.7 Nucleated RBC % (0.0-0.3) % 0.0 Absolute Neutrophils (1.2-6.7) 10^3/uL 5.25 Absolute Lymphocytes (1.2-3.4) 10^3/uL 2.76 Absolute Monocytes (0.1-0.8) 10^3/uL 0.76 Absolute Eosinophils (0.0-0.7) 10^3/uL 0.12 Absolute Basophils (0.0-0.2) 10^3/uL 0.06 VBG Lactate (0.6-1.4) mmol/L Sodium (136-145) mmol/L Potassium (3.5-5.1) mmol/L Chloride (98-107) mmol/L Carbon Dioxide (21.0-32.0) mmol/L Anion Gap (3-11) mmol/L BUN (7-18) mg/dL Creatinine (0.70-1.30) mg/dL Est GFR (CKD-EPI 2020) (mL/min/1.73m2) Glucose (74-106) mg/dL Calcium (8.5-10.1) mg/dL Magnesium (1.8-2.4) mg/dL 1.7 L Total Bilirubin (0.2-1.0) mg/dL AST (15-37) U/L ALT (16-63) U/L Alkaline Phosphatase (46-116) U/L Ammonia (11-32) umol/L 29 Troponin I (<or=60) ng/L < 50 Total Protein (6.4-8.2) g/dL Albumin (3.4-5.0) g/dL Urine Color (Yellow) Urine Clarity (Clear) Urine pH (5-8) Ur Specific [place] (1.005-1.025) Urine Protein (Negative) mg/dL Urine Ketones (Negative) mg/dL Urine Blood (Negative) Urine Nitrite (Negative) Urine Bilirubin (Negative) Urine Urobilinogen (Up to 0.2) mg/dL Ur Leukocyte Esterase (Negative) Urine Glucose (Negative) mg/dL Urine Opiates Screen (Negative) Urine Methadone Screen (Negative) Ur Barbiturates Screen (Negative) Valproic Acid ( - 150) ug/mL Ur Tricyclics Screen (Negative) Ur Amphetamines Screen (Negative) U Benzodiazepines Scrn (Negative) Urine Cocaine Screen (Negative) Ur THC Screen (Negative) Ethyl Alcohol (<10) mg/dL Range/Units 12/05/22 12/05/22 12/05/22 10:25 10:44 10:44 WBC (4.4-10.8) 10^3/uL RBC (4.36-5.78) 10^6/uL Hgb (13.5-17.5) g/dL Hct (40.0-50.0) % MCV (80-95) fL MCH (27.0-33.0) pg MCHC (32.0-36.0) % RDW (11.8-14.1) % Plt Count (130-400) 10^3/uL MPV (8.0-11.0) fL Immature Gran % Neutrophils % Lymphocytes % Monocytes % Eosinophils % Basophils % Nucleated RBC % (0.0-0.3) % Absolute Neutrophils (1.2-6.7) 10^3/uL Absolute Lymphocytes (1.2-3.4) 10^3/uL Absolute Monocytes (0.1-0.8) 10^3/uL Absolute Eosinophils (0.0-0.7) 10^3/uL Absolute Basophils (0.0-0.2) 10^3/uL VBG Lactate (0.6-1.4) mmol/L 1.3 Sodium (136-145) mmol/L 140 Potassium (3.5-5.1) mmol/L 3.3 L Chloride (98-107) mmol/L 102 Carbon Dioxide (21.0-32.0) mmol/L 26.9 Anion Gap (3-11) mmol/L 11.1 H BUN (7-18) mg/dL 22 H Creatinine (0.70-1.30) mg/dL 0.8 Est GFR (CKD-EPI 2020) (mL/min/1.73m2) 99.44 Glucose (74-106) mg/dL 152 H Calcium (8.5-10.1) mg/dL 9.8 Magnesium (1.8-2.4) mg/dL Total Bilirubin (0.2-1.0) mg/dL 0.6 AST (15-37) U/L 27 ALT (16-63) U/L 28 Alkaline Phosphatase (46-116) U/L 83 Ammonia (11-32) umol/L Troponin I (<or=60) ng/L Total Protein (6.4-8.2) g/dL 7.8 Albumin (3.4-5.0) g/dL 3.8 Urine Color (Yellow) Urine Clarity (Clear) Urine pH (5-8) Ur Specific [place] (1.005-1.025) Urine Protein (Negative) mg/dL Urine Ketones (Negative) mg/dL Urine Blood (Negative) Urine Nitrite (Negative) Urine Bilirubin (Negative) Urine Urobilinogen (Up to 0.2) mg/dL Ur Leukocyte Esterase (Negative) Urine Glucose (Negative) mg/dL Urine Opiates Screen (Negative) Urine Methadone Screen (Negative) Ur Barbiturates Screen (Negative) Valproic Acid ( - 150) ug/mL 20.0 Ur Tricyclics Screen (Negative) Ur Amphetamines Screen (Negative) U Benzodiazepines Scrn (Negative) Urine Cocaine Screen (Negative) Ur THC Screen (Negative) Ethyl Alcohol (<10) mg/dL < 3.0 Range/Units 12/05/22 12/05/22 10:54 10:54 WBC (4.4-10.8) 10^3/uL RBC (4.36-5.78) 10^6/uL Hgb (13.5-17.5) g/dL Hct (40.0-50.0) % MCV (80-95) fL MCH (27.0-33.0) pg MCHC (32.0-36.0) % RDW (11.8-14.1) % Plt Count (130-400) 10^3/uL MPV (8.0-11.0) fL Immature Gran % Neutrophils % Lymphocytes % Monocytes % Eosinophils % Basophils % Nucleated RBC % (0.0-0.3) % Absolute Neutrophils (1.2-6.7) 10^3/uL Absolute Lymphocytes (1.2-3.4) 10^3/uL Absolute Monocytes (0.1-0.8) 10^3/uL Absolute Eosinophils (0.0-0.7) 10^3/uL Absolute Basophils (0.0-0.2) 10^3/uL VBG Lactate (0.6-1.4) mmol/L Sodium (136-145) mmol/L Potassium (3.5-5.1) mmol/L Chloride (98-107) mmol/L Carbon Dioxide (21.0-32.0) mmol/L Anion Gap (3-11) mmol/L BUN (7-18) mg/dL Creatinine (0.70-1.30) mg/dL Est GFR (CKD-EPI 2020) (mL/min/1.73m2) Glucose (74-106) mg/dL Calcium (8.5-10.1) mg/dL Magnesium (1.8-2.4) mg/dL Total Bilirubin (0.2-1.0) mg/dL AST (15-37) U/L ALT (16-63) U/L Alkaline Phosphatase (46-116) U/L Ammonia (11-32) umol/L Troponin I (<or=60) ng/L Total Protein (6.4-8.2) g/dL Albumin (3.4-5.0) g/dL Urine Color (Yellow) Yellow Urine Clarity (Clear) Clear Urine pH (5-8) 6.0 Ur Specific [place] (1.005-1.025) 1.020 Urine Protein (Negative) mg/dL Negative Urine Ketones (Negative) mg/dL Trace H Urine Blood (Negative) Negative Urine Nitrite (Negative) Negative Urine Bilirubin (Negative) Negative Urine Urobilinogen (Up to 0.2) mg/dL 0.2 Ur Leukocyte Esterase (Negative) Negative Urine Glucose (Negative) mg/dL Negative Urine Opiates Screen (Negative) Negative Urine Methadone Screen (Negative) Negative Ur Barbiturates Screen (Negative) Negative Valproic Acid ( - 150) ug/mL Ur Tricyclics Screen (Negative) Negative Ur Amphetamines Screen (Negative) Negative U Benzodiazepines Scrn (Negative) Negative Urine Cocaine Screen (Negative) Negative Ur THC Screen (Negative) Negative Ethyl Alcohol (<10) mg/dL
== END 2022-12-06 13:15 | disposition home or self-care (01) ==
LOC: ER 10:07 → MS 18:18
PROVIDERS: Nurse Practitioner Acute Care; Admitting Provider Internal Medicine; Emergency Provider Physician Assistant; PCP Family Medicine; Visit Provider Internal Medicine
DX: F22 Delusional disorders (principal); F20.9 Schizophrenia, unspecified; F31.9 Bipolar disorder, unspecified; K59.09 Other constipation; K57.90 Diverticulosis of intestine, part unspecified, without perforation or abscess without bleeding; I10 Essential (primary) hypertension; I25.2 Old myocardial infarction; N32.81 Overactive bladder; G25.81 Restless legs syndrome; R32 Unspecified urinary incontinence; G25.1 Drug-induced tremor; F17.210 Nicotine dependence, cigarettes, uncomplicated; E03.9 Hypothyroidism, unspecified; Z79.01 Long term (current) use of anticoagulants; Z79.84 Long term (current) use of oral hypoglycemic drugs
CPT/HCPCS: 36415; 80053; 80307; 93005; 99285; 70450; 70551; 71045; 72125; 73060; 80164; 80320; 81003; 82140; 83605; 83735; 84443; 84484; 85025; 93010; 99223; 99238; G0378; J2060; J3490

== ENCOUNTER 2022-12-12 01:50 | Outpatient (CLI) | payer MEDICARE, MEDICAID, SELFPAY ==
[2022-12-12 10:30] LABS: Abs Immature Grans 0.06 10^3/uL (0.0-0.06); Absolute Basophil Count 0.06 10^3/uL (0.0-0.2); Absolute Eosinophil Count 0.04 10^3/uL (0.0-0.7); Absolute Lymphocyte Count 3.89 10^3/uL (1.2-3.4); Basophils % 0.5; Eosinophils % 0.3; HGB 18.1 g/dL (13.5-17.5); Immature Grans % 0.5; Lymphocytes % 32.5; MCH 31.6 pg (27.0-33.0); MCHC 35.5 % (32.0-36.0); MCV 89 fL (80-95); MPV 11.9 fL (8.0-11.0); Monocytes % 7.8; Neutrophils % 58.4; Platelet Count 311 10^3/uL (130-400); RBC 5.72 10^6/uL (4.36-5.78); RDW 12.2 % (11.8-14.1); RDW-SD 39.8 fL; WBC 11.98 10^3/uL (4.4-10.8)
[2022-12-12 10:31] LABS: Absolute Monocyte Count 0.93 10^3/uL (0.1-0.8)
== END 2022-12-12 01:51 | disposition home or self-care (01) ==
LOC: LBO 01:50
PROVIDERS: PCP Family Medicine; Visit Provider Counselor Addiction (Substance Use Disorder)
DX: F20.9 Schizophrenia, unspecified (principal); Z79.899 Other long term (current) drug therapy
CPT/HCPCS: 36415; 85025

== ENCOUNTER → 2022-12-16 10:14 | Outpatient (BNVA) | payer MEDICARE, MEDICAID, SELFPAY | PROVIDERS: PCP Family Medicine; Visit Provider Nurse Practitioner Gerontology | DX: R31.29 Other microscopic hematuria (principal); E11.9 Type 2 diabetes mellitus without complications | CPT/HCPCS: 99213 ==

== ENCOUNTER 2022-12-19 02:17 | Outpatient (CLI) | payer MEDICARE, MEDICAID, SELFPAY ==
[2022-12-19 10:50] LABS: Abs Immature Grans 0.04 10^3/uL (0.0-0.06); Absolute Basophil Count 0.05 10^3/uL (0.0-0.2); Absolute Eosinophil Count 0.08 10^3/uL (0.0-0.7); Absolute Monocyte Count 0.84 10^3/uL (0.1-0.8); Absolute Neutrophil Count 8.78 10^3/uL (1.2-6.7); Basophils % 0.4; Eosinophils % 0.6; HCT 53.7 % (40.0-50.0); Immature Grans % 0.3; Lymphocytes % 22.1; MCH 31.3 pg (27.0-33.0); MCHC 35.6 % (32.0-36.0); MCV 88 fL (80-95); MPV 11.9 fL (8.0-11.0); Monocytes % 6.7; Neutrophils % 69.9; Platelet Count 265 10^3/uL (130-400); RDW 12.1 % (11.8-14.1); RDW-SD 39.3 fL; WBC 12.56 10^3/uL (4.4-10.8)
[2022-12-19 10:51] LABS: Absolute Lymphocyte Count 2.78 10^3/uL (1.2-3.4)
[2022-12-19 11:09] LABS: HGB 19.1 g/dL (13.5-17.5)
[2022-12-19 11:42] LABS: Diff Comment Diff Reviewed; RBC Morphology Normal
== END 2022-12-19 02:18 | disposition home or self-care (01) ==
LOC: LBO 02:17
PROVIDERS: PCP Family Medicine; Visit Provider Counselor Addiction (Substance Use Disorder)
DX: F20.9 Schizophrenia, unspecified (principal); Z79.899 Other long term (current) drug therapy
CPT/HCPCS: 36415; 85025

== ENCOUNTER 2022-12-19 15:52 | Inpatient (IN) | payer MEDICARE, MEDICAID, SELFPAY ==
[2022-12-19] VITALS (8 sets, daily range): BP systolic 104–133; BP diastolic 71–82; PULSE 57–80; RESP 18–22; TEMP 35.6–37.3; O2SAT 93–95
--- NOTE | 2022-12-19 15:45 | RT.EKG_ITS ---
APPROVED REPORT Exam: Resting ECG Reason for Exam: dizzy Patient Location: E HR:80 bpm ECG Measurements Heart Rate 80 AXIS CA [id number] P [id number] QRSd 101 QRS 61 QT 435 T -30 QTc 502 Conclusion Atrial fibrillation...V-rate 64- 91, irreg A-activity Nonspecific repol abnormality, inferior leads...ST dep, T neg, II III aVF Prolonged QT interval...QTc >500mS There are no significant changes compared to prior EKG performed on 12/05/2022 at 10:10.
--- NOTE | 2022-12-19 15:59 | W.ED.GENAD ---
Discharge Plan Disposition Patient Disposition: Admit to [facility] Condition: Fair Discharge Details Clinical Impression: Dehydration, Schizophrenia, Hypokalemia, Hypomagnesemia Primary Care Provider: Nisha Carrillo ED Provider: Randy Godinez [facility] and New Rx's Prescriptions: No Action Eliquis 5 MG tablet 5 mg PO BID Qty: 180 12RF sennosides [senna] 8.6 MG tablet 8.6 mg PO BID PRN1 Days Rx Instructions: prn divalproex 500 mg tablet extended release 24 hr 2,000 mg PO HS Rx Instructions: takes at 1600 loratadine 10 mg tablet 10 mg PO DAILY PRN clozapine 200 mg tablet 400 mg PO HS Patient Comments: pt states not taking stopped 9 days ago Rx Instructions: With 100 mg tab for total of 500 mg po qhs lorazepam 0.5 mg tablet 0.5 mg PO .QH PRN triamcinolone acetonide 0.1 % cream 1 applic topical BID [place] Thyroid 90 MG tablet 90 mg PO QAM melatonin 3 MG tablet extended release 3 mg PO HS PRN ropinirole 1 mg Tablet 1 mg PO DIRECTED Rx Instructions: DAILY at 1600 albuterol sulfate [Ventolin HFA] 90 mcg/actuation Hfa Aerosol Inhaler 2 puff INHALATION Q4H PRN polyethylene glycol 3350 [Miralax] 17 gram/dose powder 17 g PO BID PRN Patient Comments: 17 gram by mouth once a day as needed metformin 1,000 mg tablet 1,000 mg PO BID potassium chloride 20 mEq tablet extended release 10 meq PO DAILY atorvastatin [Lipitor] 10 MG tablet 40 mg PO QPM Qty: 0 0RF docusate sodium 100 mg capsule 200 mg PO BID PRN furosemide 20 mg tablet 40 mg PO DAILY clozapine 100 mg tablet 100 mg PO QHS Patient Comments: Pt states not taking stopped 9 days ago Rx Instructions: Take in combination with two 200 mg tabs for total dose of 500 mg po qhs metoprolol succinate 25 mg Tablet Extended Release 24 Hr 12.5 mg PO DAILY Qty: 30 0RF magnesium chloride 64 mg magnesium tablet 64 mg PO DAILY Qty: 30 0RF Medical Decision Making Patient presenting with worsening confusion. This may be related to his schizophrenia and lack of taking his medications. However, he has also had decreased oral intake, comorbid medical conditions and is noted to have strong smelling urine here so must evaluate for potential medical causes. Previous work-up on the second unremarkable. We will plan repeat labs, urinalysis, CT head, chest x-ray. CT head is negative per radiology. Chest x-ray per my read is negative. Laboratory studies significant for hemoconcentration, hypokalemia, hypomagnesemia, anion gap all consistent with dehydration. Depakote level is 0. Urinalysis with ketones. His glucose is essentially normal at 111 so this is not DKA related. We will continue with IV fluids and will begin repleting potassium and magnesium. I have spoke with patient as well as his [facility] worker regarding admission. Case discussed with hospitalist for admission and accepted by Dr. Hickman. Medical Records Medical records reviewed: Yes I reviewed the patient's medical records. Lab Data Lab results reviewed: Yes I reviewed the patient's lab results. Lab results narrative: see [facility] ECG Data Attestation: I personally reviewed and interpreted this ECG (s) as follows: Interpretation: See EKG reading HPI General Date/Time Provider Initiated Documentation: 12/19/22 15:54. Information obtained by: patient. HPI Narrative: Patient is brought in by [facility] worker for evaluation of confusion, refusal to take nighttime meds, unsteadiness in gait. Patient does have a history of schizophrenia and is on medications which he typically takes at night. He apparently has been taking his morning medications which is more for medical issues. Patient himself is awake and alert and denies any pain, difficulty breathing, vomiting. No recent falls as far as anyone knows. Patient here December 07 with similar complaints with negative work-up. Seems to be worse and is consistently not taking nighttime medications for at least 9 days per [facility]. Related Data Home Medications Medication Instructions Recorded Confirmed melatonin 3 mg tablet,extended 3 mg PO HS PRN 01/23/16 12/19/22 release thyroid (pork) 90 mg tablet 90 mg PO QAM 01/23/16 12/19/22 ([place] Thyroid) apixaban 5 mg tablet (Eliquis) 5 mg PO BID #180 tabs 07/20/17 12/19/22 sennosides 8.6 mg tablet (senna) 8.6 mg PO BID PRN 1 day 07/28/17 12/19/22 albuterol sulfate 90 mcg/actuation 2 puff inhalation Q4H PRN 03/27/19 12/19/22 aerosol inhaler (Ventolin HFA) ropinirole 1 mg tablet 1 mg PO DIRECTED 03/27/19 12/19/22 docusate sodium 100 mg capsule 200 mg PO BID PRN 11/13/20 12/19/22 furosemide 20 mg tablet 40 mg PO DAILY 08/10/21 12/19/22 metformin 1,000 mg tablet 1,000 mg PO BID 09/15/21 12/19/22 polyethylene glycol 3350 17 17 g PO BID PRN 09/15/21 12/19/22 gram/dose oral powder (Miralax) divalproex 500 mg tablet,extended 2,000 mg PO HS 09/16/21 12/19/22 release 24 hr loratadine 10 mg tablet 10 mg PO DAILY PRN 09/16/21 12/19/22 clozapine 200 mg tablet 400 mg PO HS 11/14/21 12/05/22 lorazepam 0.5 mg tablet 0.5 mg PO .QH PRN 11/14/21 12/19/22 clozapine 100 mg tablet 100 mg PO QHS 03/29/22 12/05/22 magnesium chloride 64 mg 64 mg PO DAILY #30 tabs 03/30/22 12/19/22 (magnesium chloride) tablet metoprolol succinate 25 mg 12.5 mg PO DAILY #30 tabs 03/30/22 12/19/22 tablet,extended release 24 hr triamcinolone acetonide 0.1 % 1 applic topical BID 04/17/22 12/19/22 topical cream potassium chloride 20 mEq 10 meq PO DAILY 06/20/22 12/19/22 tablet,extended release atorvastatin 10 mg tablet (Lipitor) 40 mg PO QPM #0 tabs 06/25/22 12/19/22 Previous Rx's Medication Instructions Recorded apixaban 5 mg tablet (Eliquis) 5 mg PO BID #180 tabs 07/20/17 magnesium chloride 64 mg 64 mg PO DAILY #30 tabs 03/30/22 (magnesium chloride) tablet metoprolol succinate 25 mg 12.5 mg PO DAILY #30 tabs 03/30/22 tablet,extended release 24 hr atorvastatin 10 mg tablet (Lipitor) 40 mg PO QPM #0 tabs 06/25/22 Allergies Allergy/AdvReac Type Severity Reaction Status Date / Time Penicillins AdvReac Intermediate black out Unverified 12/19/22 16:12 gabapentin AdvReac Mild Headache Unverified 12/19/22 16:12 niacin AdvReac Mild turn red Unverified 12/19/22 16:12 General MARY: 3 Review of Systems Unobtainable due to mental status (confused) PFSH All Active Problems (Updated 12/19/22 @ 18:19 by Randy Godinez MD) Dehydration (Acute) Hypokalemia (Acute) Hypomagnesemia (Acute) Schizophrenia (Chronic) Weight gain (Acute 10/22/16) Screening for colorectal cancer (Acute) Heel ulcer (Acute) Medication monitoring encounter (Acute) Acute ischemic stroke (Acute) C1 cervical fracture (Acute) Chronic schizophrenia (Chronic) Ambulatory dysfunction (Acute) Alteration in thought content as evidenced by delusions (Acute) BRENNEN (acute kidney injury) (Acute) Medical History (Updated 12/19/22 @ 18:19 by Randy Godinez MD) Afib Atrial enlargement, bilateral BCC (basal cell carcinoma of skin) Chronic constipation Diabetes mellitus, type 2 Diverticulosis Facial basal cell cancer (02/04/16) HTN (hypertension) (02/04/16) Hypothyroidism Non-ST elevation [place] (NSTEMI) OAB (overactive bladder) Obesity RLS (restless legs syndrome) 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 (10/22/16) Urinary incontinence Vitreous floaters of right eye Surgical History Colonoscopy - MAC (01/25/16) 2011 Excision, Lipoma Hx of cholecystectomy Hydrocelectomy Tonsillectomy Family History Mother No problems noted. Father Heart disease Brother Alcohol abuse Social History Smoking/Tobacco Use Status: Current every day Tobacco Type: cigarettes Smoking risk assessment performed?: Yes Alcohol Intake: current Alcohol Intake frequency: holidays/special occasions only Alcohol type: beer and hard liquor Drug use: Current Sobriety Substance use type: does not use Housing: assisted living facility Current gender identity: male Do you feel safe at home: Yes Do you feel safe in your relationship?: Yes Exam Narrative Exam Narrative: Const: WDWN male in NAD. HEENT: NC/AT. Normal facial exam. Poor dentition. Eyes: Normal conjunctiva and sclera. Neck: Supple. Trachea midline. Lungs: Normal respiratory effort. Lungs are clear. Cor: RRR without murmur/gallop. Good radial pulses. GI: Soft. NT/ND. No guarding or rebound. Neuro: Awake, alert, repetitive, confused. Normal speech. Cranial nerves II - XII grossly intact. No gross motor or sensory deficit. Ext: No C/C/E.
--- NOTE | 2022-12-19 16:15 | DI.CT_ITS ---
Exam(s) CT HEAD WO EXAM: CT HEAD WO CLINICAL HISTORY: AMS. TECHNIQUE: Imaging Protocol: Axial computed tomography images with coronal and sagittal reformatted images were created and reviewed COMPARISON: CT CT HEAD CERVICAL SPINE WO from 12/05/2022 FINDINGS: There are no skull fractures. There is no fluid in the visualized paranasal sinuses. There is no evidence of intracranial hemorrhage, mass effect, or shift of midline structures. There are no extra-axial fluid collections. The ventricles are not enlarged or shifted and there is no blo od within the ventricular system nor within the basal cisterns. IMPRESSION: No acute intracranial findings on this noninfused CT scan of the brain. If clinically indicated follow-up MRI can be performed RADIATION DOSE DELIVERED: 821.35mGy.cm Total DLP DATA REPOSITORY: All CT scans at this facility are submitted to the National Radiology Data Registry (NRDR) Dose Index Registry (DIR) with the [employer] [place] [employer] ([employer]). RADIATION OPTIMIZATION: All CT scans at this facility use at least one of these dose optimization te chniques: automated exposure control; mA and/or kV adjustment per patient size (includes targeted exa ms where dose is matched to clinical indication); or iterative reconstruction.
[2022-12-19] MEDS: Normal Saline 1,000 ML 1000 ML IV (16:30)
[2022-12-19 16:33] LABS: Abs Immature Grans 0.05 10^3/uL (0.0-0.06); Absolute Basophil Count 0.06 10^3/uL (0.0-0.2); Absolute Eosinophil Count 0.06 10^3/uL (0.0-0.7); Absolute Lymphocyte Count 2.94 10^3/uL (1.2-3.4); Absolute Monocyte Count 0.75 10^3/uL (0.1-0.8); Absolute Neutrophil Count 7.87 10^3/uL (1.2-6.7); Basophils % 0.5; Eosinophils % 0.5; HCT 50.6 % (40.0-50.0); HGB 18.2 g/dL (13.5-17.5); Immature Grans % 0.4; Lymphocytes % 25.1; MCH 31.3 pg (27.0-33.0); MCV 87 fL (80-95); MPV 11.7 fL (8.0-11.0); Monocytes % 6.4; Neutrophils % 67.1; Platelet Count 247 10^3/uL (130-400); RBC 5.81 10^6/uL (4.36-5.78); RDW 12.2 % (11.8-14.1); RDW-SD 38.5 fL; WBC 11.73 10^3/uL (4.4-10.8)
[2022-12-19 17:00] LABS: VALPROIC ACID < 3 ug/mL
[2022-12-19 17:12] LABS: ALT 28 U/L (16-63); AST < 5 U/L (15-37); Albumin 3.8 g/dL (3.4-5.0); Alkaline Phosphatase 95 U/L (46-116); BUN 20 mg/dL (7-18); Bilirubin, Total 0.8 mg/dL (0.2-1.0); Chloride 96 mmol/L (98-107); Glucose 111 mg/dL (74-106); Magnesium 1.4 mg/dL (1.8-2.4); Sodium 137 mmol/L (136-145); TSH (W/Ref FT4) 1.03 uIU/mL (0.36-3.74); Total Protein 7.8 g/dL (6.4-8.2); Troponin I < 50 ng/L (<or=60)
--- NOTE | 2022-12-19 17:13 | DI.RAD_ITS ---
Exam(s) XR CHEST 2V PA LATERAL EXAM: XR CHEST 2V PA LATERAL CLINICAL HISTORY: AMS. TECHNIQUE: 2D digital imaging was performed. COMPARISON: CR XR CHEST 1V IN DI DEPT from 12/05/2022 FINDINGS: 2 views: Heart size is upper normal. The mediastinum is not widened. Left lung is clear. There is scarring in the medial right lower lobe. No pleural effusions. No pul monary edema. No pneumothorax. No fractures. IMPRESSION: Scarring versus early infiltrate in the medial right lower lobe.No pleural effusions. No pulmonary e albina DATA REPOSITORY: RADIATION DOSE DELIVERED:
--- NOTE | 2022-12-19 17:15 | DI.VRAD_ITS ---
PROCEDURE INFORMATION: Exam: CT Head Without Contrast Exam date and time: 12/19/2022 4:53 PM Age: 62 years old Clinical indication: Altered mental status/memory loss; Patient HX: AMS TECHNIQUE: Imaging protocol: Computed tomography of the head without contrast. COMPARISON: MR BRAIN WO 12/05/2022 1:11 PM FINDINGS: Brain: Normal. No hemorrhage. Unremarkable white matter. No mass effect. Cerebral ventricles: No ventriculomegaly. Paranasal sinuses: Visualized sinuses are unremarkable. No fluid levels. Mastoid air cells: Visualized mastoid air cells are well aerated. Bones/joints: Unremarkable. No acute fracture. Soft tissues: Unremarkable. IMPRESSION: No acute intracranial abnormality. Dictated and Authenticated by: Simeon Valdez MD. Ordering:JOHANNE Padilla MD
--- NOTE | 2022-12-19 17:18 | DI.VRAD_ITS ---
PROCEDURE INFORMATION: Exam: XR Chest Exam date and time: 12/19/2022 5:08 PM Age: 62 years old Clinical indication: Other: AMS TECHNIQUE: Imaging protocol: Radiologic exam of the chest. Views: 2 views. COMPARISON: CR XR CHEST 1V IN DI DEPT 12/05/2022 11:16 AM FINDINGS: Lungs: Unremarkable. No consolidation. Pleural spaces: Unremarkable. No pleural effusion. No pneumothorax. Heart/Mediastinum: Unremarkable. No cardiomegaly. Bones/joints: Unremarkable. IMPRESSION: No acute findings. Dictated and Authenticated by: Simeon Valdez MD. Ordering:JOHANNE Padilla MD
[2022-12-19 17:19] LABS: CREATININE 1.1 mg/dL (0.70-1.30); Calcium 9.3 mg/dL (8.5-10.1); Estimated GFR 74.96 (mL/min/1.73m2)
[2022-12-19 17:20] LABS: ETHANOL BLOOD < 3.0 mg/dL (<10)
[2022-12-19 17:49] LABS: Bilirubin Large (Negative); Blood Trace-intact (Negative); Clarity Sl Cloudy (Clear); Glucose Negative (Negative); Ketones >=160 mg/dL (Negative); Leukocyte Esterase Trace (Negative); Nitrite Negative (Negative); Specific Gravity 1.025 (1.005-1.025); pH 5.5 (5-8)
[2022-12-19] MEDS: Lactated Ringers 1,000 ML 1000 ML IV (18:14)
[2022-12-19] MEDS: POTASSIUM CHLORIDE 20 MEQ/100 ML BAG 50 MEQ IVPB (18:14)
[2022-12-19] MEDS: MAGNESIUM SULFATE 2 GM/50 ML BAG IVPB ×2 (18:14→20:23)
[2022-12-19 18:20] LABS: Bacteria Few HPF (Negative); C & S Indicated? Yes; Casts 0-2 Hyaline LPF (Negative); Crystals Negative HPF (Negative); Epithelial Cells Few HPF (Negative); Mucus Trace (Negative); RBC 0-2 HPF (0-2)
[2022-12-19 18:52] LABS: *AMPHETAMINES SCREEN URINE Negative (Negative); *BARBITURATES SCREEN URINE Negative (Negative); *BENZODIAZEPINES SCREEN URINE Negative (Negative); Cannabinoids THC Negative (Negative); Cocaine Screen,Urine Negative (Negative); OPIATES URINE SCREEN Negative (Negative); Tricyclic Antidepressants Negative (Negative)
--- NOTE | 2022-12-19 19:03 | NUR.NOTE ---
Nursing Note: house sup and CC were made aware that pt was going to need a one on one, one on one not provided. pt tried to leave, pulled out IV and pulled off cardiac leads. pt was intercepted at the ED entrance and bandage placed where IVwas pulled. Staff got pt back into room, pt was reluctent,
[2022-12-19] MEDS: LORazepam 2 MG/ML VIAL 1 MG IVP (19:33)
--- NOTE | 2022-12-19 19:39 | HPE_ITS ---
Date of service: 12/19/22 Time of Service: 19:40 Assessment and Plan Assessment and plan (1) Dehydration: Start date: 12/19/22 Status: Acute Assessment and plan: This is a 62-year-old gentleman who has chronic schizophrenia not taking his usual psychiatric medications at night and having poor intake with dehydration and hemoconcentrated as well as electrolyte abnormality upon presentation. His urine was cloudy and concentrated but negative nitrates with only slightly elevated WBC and the patient not started on antibiotic therapy. There was a question on chest x-ray right lower lobe infiltrate and this can be watched closely with initiation of antibiotics if patient is symptomatic. Present with patient will be rehydrated with electrolyte repletion and trend labs. He is a full code. (2) Hypokalemia: Start date: 12/19/22 Status: Acute Assessment and plan: IV repletion and trend labs adjust as needed. Patient is chronically on furosemide with magnesium supplement but not potassium supplementation. Follow- up as an outpatient and consider chronic oral replacement. (3) Hypomagnesemia: Start date: 12/19/22 Status: Acute Assessment and plan: Acutely exacerbated with patient chronically on the magnesium and taking Lasix daily by history. It is unclear why he is on Lasix. (4) Polycythemia: Start date: 12/19/22 Status: Acute Assessment and plan: Most likely secondary to hemoconcentration with dehydration. Monitor labs while on IV hydration which is ongoing. (5) Schizophrenia: Status: Chronic Assessment and plan: Restart chronic medical therapy and monitor behavior. (6) Diabetes mellitus, type 2: Assessment and plan: Hold outpatient medical therapy with glucometer measurements and sliding scale coverage. Diabetic diet. (7) HTN (hypertension): Assessment and plan: Adjust outpatient therapy with dehydration and advance back to medical therapy once stabilized. History of Present Illness History of Present Illness Chief Complaint: Worsening confusion with chronic schizophrenia and noncompliance. Narrative: This is a 62-year-old male patient who is brought in by mental health workers because of some concern about increased confusion from baseline. He has not been taking his nighttime medications and was unsteady with gait. He does take his morning medications which are for his medical concerns but skipped his nighttime medication for schizophrenia quite often. He has had decreased intake and in the ED was found to be dehydrated with hemoconcentration and as well as increased confusion. He had electrolyte abnormality with hypokalemia and hypomagnesemia which will be repleted with IV supplements. At the time of consult patient he was more concerned about drinking and getting up to go the bathroom and had normal conversation. He offers no further history. See ED notes for complete history and course in the ED. He was doing well with IV hydration with repletion of potassium in his IV solution. He did receive IV magnesium sulfate with lab being treated. He is a full code. Review of Systems Narrative: 13 point review of systems otherwise unrevealing, stable or unobtainable. [facility] All Active Problems (Updated 12/19/22 @ 19:46 by Julius Calderon) Polycythemia (Acute) Dehydration (Acute) Hypokalemia (Acute) Hypomagnesemia (Acute) Schizophrenia (Chronic) Weight gain (Acute 10/22/16) Screening for colorectal cancer (Acute) Heel ulcer (Acute) Medication monitoring encounter (Acute) Acute ischemic stroke (Acute) C1 cervical fracture (Acute) Chronic schizophrenia (Chronic) Ambulatory dysfunction (Acute) Alteration in thought content as evidenced by delusions (Acute) BRENNEN (acute kidney injury) (Acute) Medical History Afib Atrial enlargement, bilateral BCC (basal cell carcinoma of skin) Chronic constipation Diabetes mellitus, type 2 Diverticulosis Facial basal cell cancer (02/04/16) HTN (hypertension) (02/04/16) Hypothyroidism Non-ST elevation [place] (NSTEMI) OAB (overactive bladder) Obesity RLS (restless legs syndrome) 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 Father Heart disease Brother Alcohol abuse Social History Smoking/Tobacco Use Status: Current every day Tobacco Type: cigarettes Smoking risk assessment performed?: Yes Alcohol Intake: current Alcohol Intake frequency: holidays/special occasions only Alcohol type: beer and hard liquor Drug use: Current Sobriety Substance use type: does not use Housing: other Current gender identity: male Do you feel safe at home: Yes Do you feel safe in your relationship?: Yes Meds Allergies and Home Medications Allergies Allergy/AdvReac Type Severity Reaction Status Date / Time Penicillins AdvReac Intermediate black out Unverified 12/19/22 16:12 gabapentin AdvReac Mild Headache Unverified 12/19/22 16:12 niacin AdvReac Mild turn red Unverified 12/19/22 16:12 Home Medications Medication Instructions Recorded Confirmed Type melatonin 3 mg tablet,extended 3 mg PO HS PRN 01/23/16 12/19/22 History release thyroid (pork) 90 mg tablet 90 mg PO QAM 01/23/16 12/19/22 History (Coyle Thyroid) apixaban 5 mg tablet (Eliquis) 5 mg PO BID #180 tabs 07/20/17 12/19/22 Rx sennosides 8.6 mg tablet (senna) 8.6 mg PO BID PRN 1 day 07/28/17 12/19/22 History albuterol sulfate 90 mcg/actuation 2 puff inhalation Q4H PRN 03/27/19 12/19/22 History aerosol inhaler (Ventolin HFA) ropinirole 1 mg tablet 1 mg PO DIRECTED 03/27/19 12/19/22 History docusate sodium 100 mg capsule 200 mg PO BID PRN 11/13/20 12/19/22 History furosemide 20 mg tablet 40 mg PO DAILY 08/10/21 12/19/22 History metformin 1,000 mg tablet 1,000 mg PO BID 09/15/21 12/19/22 History polyethylene glycol 3350 17 17 g PO BID PRN 09/15/21 12/19/22 History gram/dose oral powder (Miralax) divalproex 500 mg tablet,extended 2,000 mg PO HS 09/16/21 12/19/22 History release 24 hr loratadine 10 mg tablet 10 mg PO DAILY PRN 09/16/21 12/19/22 History clozapine 200 mg tablet 400 mg PO HS 11/14/21 12/05/22 History lorazepam 0.5 mg tablet 0.5 mg PO .QH PRN 11/14/21 12/19/22 History clozapine 100 mg tablet 100 mg PO QHS 03/29/22 12/05/22 History magnesium chloride 64 mg 64 mg PO DAILY #30 tabs 03/30/22 12/19/22 Rx (magnesium chloride) tablet metoprolol succinate 25 mg 12.5 mg PO DAILY #30 tabs 03/30/22 12/19/22 Rx tablet,extended release 24 hr triamcinolone acetonide 0.1 % 1 applic topical BID 04/17/22 12/19/22 History topical cream potassium chloride 20 mEq 10 meq PO DAILY 06/20/22 12/19/22 History tablet,extended release atorvastatin 10 mg tablet (Lipitor) 40 mg PO QPM #0 tabs 06/25/22 12/19/22 Rx Exam Narrative Exam Narrative: General: Patient appears older than stated age, thin except over trunk where he is obese with large abdomen. He is alert and oriented at least to person place. He is in no acute distress. Uncooperative with discussion. HEENT: Normocephalic, coarsened facial features, eyes with pupils equal react light symmetrically, extraocular movement intact and sclera anicteric. Oropharynx with dry mucosa and poor dentition. Neck: Supple without JVD. Back: Stooped posture without CVA tenderness. Lungs: Fair aeration clear to auscultation percussion. No focalizing rales or rhonchi. Heart: Regular rate and rhythm with no appreciable murmur or gallop. Abdomen: Obese contour, soft nontender to palpation with no palpable hepatosplenomegaly. Bowel sounds positive all quadrants. Skin: Normal color, warm and dry. Fair turgor. Neuro: Cranial nerves II through XII gross intact, no focalizing motor deficits or tremor. Extremities: No clubbing, cyanosis or grossly pitting edema. Good capillary refill. Psych: Odd affect with wandering conversation and patient not focusing on details answering questions indirectly. No abnormal thought processes. Mood appears depressed. Remote memory and recent memory not testable with patient wandering conversation. Results Imaging Imaging Studies: Exam: XR Chest Exam date and time: 12/19/2022 5:08 PM Age: 62 years old Clinical indication: Other: AMS TECHNIQUE: Imaging protocol: Radiologic exam of the chest. Views: 2 views. COMPARISON: CR XR CHEST 1V IN DI DEPT 12/05/2022 11:16 AM FINDINGS: Lungs: Unremarkable. No consolidation. Pleural spaces: Unremarkable. No pleural effusion. No pneumothorax. Heart/Mediastinum: Unremarkable. No cardiomegaly. Bones/joints: Unremarkable. IMPRESSION: No acute findings. Scarring versus early infiltrate in the medial right lower lobe.No pleural effusions.? No pulmonary edema Exam: CT Head Without Contrast Exam date and time: 12/19/2022 4:53 PM Age: 62 years old Clinical indication: Altered mental status/memory loss; Patient HX: AMS TECHNIQUE: Imaging protocol: Computed tomography of the head without contrast. COMPARISON: MR BRAIN WO 12/05/2022 1:11 PM FINDINGS: Brain: Normal. No hemorrhage. Unremarkable white matter. No mass effect. Cerebral ventricles: No ventriculomegaly. Paranasal sinuses: Visualized sinuses are unremarkable. No fluid levels. Mastoid air cells: Visualized mastoid air cells are well aerated. Bones/joints: Unremarkable. No acute fracture. Soft tissues: Unremarkable. IMPRESSION: No acute intracranial abnormality. Labs 12/19/22 16:20 12/19/22 16:20 Labs: Laboratory Results - last 24 hr 12/19/22 12/19/22 12/19/22 16:20 16:20 16:20 WBC 11.73 H RBC 5.81 H Hgb 18.2 H Hct 50.6 H MCV 87 MCH 31.3 MCHC 36.0 RDW 12.2 Plt Count 247 MPV 11.7 H Immature Gran % 0.4 Neutrophils % 67.1 Lymphocytes % 25.1 Monocytes % 6.4 Eosinophils % 0.5 Basophils % 0.5 Nucleated RBC % 0.0 Absolute Neutrophils 7.87 H Absolute Lymphocytes 2.94 Absolute Monocytes 0.75 Absolute Eosinophils 0.06 Absolute Basophils 0.06 Sodium 137 Potassium 3.0 L Chloride 96 L Carbon Dioxide 20.0 L Anion Gap 21.0 H BUN 20 H Creatinine 1.1 Est GFR (CKD-EPI 2020) 74.96 Glucose 111 H Calcium 9.3 Magnesium 1.4 L Total Bilirubin 0.8 AST < 5 L ALT 28 Alkaline Phosphatase 95 Troponin I < 50 Total Protein 7.8 Albumin 3.8 TSH 1.03 Urine Color Urine Clarity Urine pH Ur Specific [place] Urine Protein Urine Ketones Urine Blood Urine Nitrite Urine Bilirubin Urine Urobilinogen Ur Leukocyte Esterase Urine RBC Urine WBC Ur Epithelial Cells Urine Crystals Urine Bacteria Urine Casts Urine Mucus Ur Culture Indicated? Urine Glucose Urine Opiates Screen Ur Barbiturates Screen Valproic Acid < 3 Ur Tricyclics Screen Ur Amphetamines Screen U Benzodiazepines Scrn Urine Cocaine Screen Ur THC Screen Ethyl Alcohol < 3.0 12/19/22 12/19/22 17:34 17:34 WBC RBC Hgb Hct MCV MCH MCHC RDW Plt Count MPV Immature Gran % Neutrophils % Lymphocytes % Monocytes % Eosinophils % Basophils % Nucleated RBC % Absolute Neutrophils Absolute Lymphocytes Absolute Monocytes Absolute Eosinophils Absolute Basophils Sodium Potassium Chloride Carbon Dioxide Anion Gap BUN Creatinine Est GFR (CKD-EPI 2020) Glucose Calcium Magnesium Total Bilirubin AST ALT Alkaline Phosphatase Troponin I Total Protein Albumin TSH Urine Color Yellow Urine Clarity Sl Cloudy Urine pH 5.5 Ur Specific [place] 1.025 Urine Protein 30 H Urine Ketones >=160 H Urine Blood Trace-intact H Urine Nitrite Negative Urine Bilirubin Large H Urine Urobilinogen 2.0 H Ur Leukocyte Esterase Trace H Urine RBC 0-2 Urine WBC 3-5 Ur Epithelial Cells Few Urine Crystals Negative Urine Bacteria Few Urine Casts 0-2 Hyaline Urine Mucus Trace Ur Culture Indicated? Yes Urine Glucose Negative Urine Opiates Screen Negative Ur Barbiturates Screen Negative Valproic Acid Ur Tricyclics Screen Negative Ur Amphetamines Screen Negative U Benzodiazepines Scrn Negative Urine Cocaine Screen Negative Ur THC Screen Negative Ethyl Alcohol Last Vital Signs Temp 36.3 C L 12/19/22 15:58 Pulse 80 12/19/22 15:58 Resp 18 12/19/22 16:12 BP 133/82 12/19/22 15:58 Pulse Ox 95 12/19/22 15:58 Time Spent Time spent with Patient: >75 minutes Time was spent: preparing to see the patient(eg.review tests), obtaining and/or reviewing separately otained hiistory, ordering medications,tests, procedures, referring, communicating with other health youth care professional, indepentently interpreting results and care coordination
[2022-12-19] MEDS: Atorvastatin 10 MG TAB 40 MG PO (20:35)
[2022-12-19] MEDS: Apixaban 5 MG TAB PO (20:36)
[2022-12-19] MEDS: LORazepam 0.5 MG TAB PO ×2 (20:36→22:29)
[2022-12-19] MEDS: cefTRIAXone 1 GM/50 ML BAG IVPB (20:37)
[2022-12-19] MEDS: DOXYCYCLINE 100 MG in Normal Saline 100 ML IVPB (22:19)
[2022-12-19] MEDS: POTASSIUM CHLORIDE/0.9% NACL 1,000 ML 150 MEQ IV (23:00)
[2022-12-20] MEDS: LORazepam 0.5 MG TAB PO (05:12)
[2022-12-20 05:27] VITALS: BP 121/81; PULSE 88; RESP 18; TEMP 36.7; O2SAT 94
[2022-12-20 07:00] VITALS: PULSE 69
[2022-12-20 07:10] LABS: HGB 16.6 g/dL (13.5-17.5); MCH 31.5 pg (27.0-33.0); MCHC 36.1 % (32.0-36.0); MCV 87 fL (80-95); MPV 12.5 fL (8.0-11.0); Platelet Count 209 10^3/uL (130-400); RBC 5.27 10^6/uL (4.36-5.78); RDW 12.2 % (11.8-14.1); RDW-SD 38.9 fL; WBC 8.72 10^3/uL (4.4-10.8)
[2022-12-20 07:32] LABS: ALT 21 U/L (16-63); AST 16 U/L (15-37); Albumin 3.4 g/dL (3.4-5.0); Alkaline Phosphatase 92 U/L (46-116); Anion Gap 14.2 mmol/L (3-11); BUN 16 mg/dL (7-18); Bilirubin, Total 0.9 mg/dL (0.2-1.0); CO2 20.8 mmol/L (21.0-32.0); CREATININE 0.9 mg/dL (0.70-1.30); Calcium 8.9 mg/dL (8.5-10.1); Chloride 100 mmol/L (98-107); Estimated GFR 95.37 (mL/min/1.73m2); Glucose 173 mg/dL (74-106); Magnesium 1.7 mg/dL (1.8-2.4); Potassium 3.2 mmol/L (3.5-5.1); Sodium 135 mmol/L (136-145)
[2022-12-20 07:42] VITALS: BP 107/71; PULSE 68; RESP 18; TEMP 35.8; O2SAT 94
--- NOTE | 2022-12-20 08:53 | PDOC.CMIN ---
Date of service: 12/20/22 Time of Service: 08:53 Care Management Initial Assmt Initial Assessment REASON FOR HOSPITALIZATION:: Dehydration, Hypokalemia, Hypomagnesemia PREVIOUS FUNCTIONAL STATUS/SOCIAL/FAMILY SUPPORTS:: Judd lives alone in an apartment in [facility]. He receives services through the CASE [facility]ITOR Program at [facility] and has twice daily medication drops through CASE [facility]OR. He is independent with his ADLs at baseline and receives [id number] and uses [employer] private vehicle for transportation needs. CURRENT FUNCTIONAL STATUS:: Judd is sitting in a chair when CM comes to meet with him. A strong smell of urine permeates throughout the room. Judd easily engages in conversation and shares he had to return to the hospital within two weeks of his last admission due to becoming dehydrated at home. He reports drinking water all the time, so he doesn't understand how he could have become dehydrated. ADVANCE DIRECTIVES:: On file; Chika Fei is appointed as HCA. Has patient been provided with info about the portal/API?: Yes Did the patient sign up for the portal?: No CODE STATUS:: Full Code INSURANCE COVERAGE / FINANCIAL ISSUES:: Medicare and Medicaid. CURRENT HOME/COMMUNITY SERVICES/EQUIPMENT:: Judd is enrolled in the CASE [facility]ITOR Program at [facility], so he has a case worker and has twice daily medication drops. He states he sometimes uses a cane for ambulation. He receives [id number] and uses [employer] for transportation needs. PRIMARY CARE PHYSICIAN:: Nisha Carrillo MD POTENTIAL DISCHARGE NEEDS:: Follow up appointment with PCP. PATIENT/FAMILY EDUCATION NEEDS:: Review of discharge instructions including medications and follow up plan of care; discuss Ask Me Three. ANTICIPATED BARRIERS TO DISCHARGE:: None identified at this time. TRANSPORTATION:: Via [employer] private trailer tank truck driver coordinated by CM. PLAN:: Judd will likely be discharged home with no new services when medically cleared by provider. He will follow up with his PCP, [facility] and his plan of care as instructed. He will be transported home by [employer] private trailer tank truck driver coordinated by CM when ready. CM will continue to follow. [facility] All Active Problems (Updated 12/19/22 @ 19:46 by Julius Calderon) Polycythemia (Acute) Dehydration (Acute) Hypokalemia (Acute) Hypomagnesemia (Acute) Schizophrenia (Chronic) Weight gain (Acute 10/22/16) Screening for colorectal cancer (Acute) Heel ulcer (Acute) Medication monitoring encounter (Acute) Acute ischemic stroke (Acute) C1 cervical fracture (Acute) Chronic schizophrenia (Chronic) Ambulatory dysfunction (Acute) Alteration in thought content as evidenced by delusions (Acute) BRENNEN (acute kidney injury) (Acute) Medical History Afib Atrial enlargement, bilateral BCC (basal cell carcinoma of skin) Chronic constipation Diabetes mellitus, type 2 Diverticulosis Facial basal cell cancer (02/04/16) HTN (hypertension) (02/04/16) Hypothyroidism Non-ST elevation [place] (NSTEMI) OAB (overactive bladder) Obesity RLS (restless legs syndrome) 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 Father Heart disease Brother Alcohol abuse Social History Smoking/Tobacco Use Status: Current every day Tobacco Type: cigarettes Smoking risk assessment performed?: Yes Alcohol Intake: current Alcohol Intake frequency: holidays/special occasions only Alcohol type: beer and hard liquor Drug use: Current Sobriety Substance use type: does not use Housing: other Current gender identity: male Do you feel safe at home: Yes Do you feel safe in your relationship?: Yes Readmission Within the Past 30 Days Yes or No: Yes Date of First Admission Date of 1st Admission: 12/05/22 Date of this Admission Date of Admission: 12/19/22 This admission was: Through ED Office Visit Since 1st Admission Have you seen your PCP in the office since discharge?: No Speicalist Appointments Have you seen any other specialist since your 1st Admission?: Yes Date you saw the Specialist: 12/16/2022 Specialist Seen: Susan Pardo in Urology I. Interview patient and/or Family Difficulty reaching your doctor or getting an office appt?: No Have you had trouble purchasing/ or taking medication?: No How do you take your medications and set up your pills?: Receives twice daily medication drops through the [facility] CASE [facility]ITOR Program. Have you had trouble with getting meals at home?: No Describe your typical meals since you have been home: Has MOW Did you feel ready for discharge when you left the last time: Yes Were services received that you thought were set up on disch: Yes Did you call your physician beore you came to the ED?: No How do you think you became sick enough to come back?: Patient states he became dehydrated and had to return to the hospital. He says he drinks water all the time, so is not sure how he became dehydrated. Ask the Care Team Members: What do you think caused the patient to be readmitted: Decreased oral intake and co-morbid medical conditions have likely resulted in worsening confusion and dehydration. [facility] reports that patient has not been taking his nighttime medications for at least 9 days, per MD note. ED visits How many ED visits in the past 12 months: 5 Assessment for Readmission Summary of readmission circumstances, based upon interviews: Patient with a diagnosis of schizophrenia and co-morbid medical conditions has reportedly not been taking his nighttime medications for several days. This has likely led to worsening confusion and decreased oral intake, resulting in dehydration, hypokalemia and hypomagnesemia. Patient will require close monitoring to ensure he is taking his medications appropriately.
[2022-12-20] MEDS: Insulin Aspart 300 UNITS/3 ML PEN SC (09:20)
[2022-12-20] MEDS: Potassium Chloride 20 MEQ TABCR PO ×2 (09:21→12:29)
[2022-12-20] MEDS: Metoprolol CR 25 MG TABCR 12.5 MG PO (09:21)
[2022-12-20] MEDS: Magnesium Chloride 64 MG TABCR PO (09:21)
[2022-12-20] MEDS: Apixaban 5 MG TAB PO (09:22)
[2022-12-20] MEDS: DOXYCYCLINE 100 MG in Normal Saline 100 ML IVPB (09:23)
[2022-12-20] MEDS: Normal Saline Flush 10 ML SYR IVP (09:38)
[2022-12-20 11:02] VITALS: BP 115/79; PULSE 89; RESP 19; TEMP 36.5; O2SAT 96
--- NOTE | 2022-12-20 12:24 | W.PM.DS.N ---
Date of service: 12/20/22 Time of Service: 12:24 DS: Diagnosis Discharge Diagnosis (1) Dehydration: Status: Acute (2) Hypokalemia: Status: Acute (3) Hypomagnesemia: Status: Acute (4) Polycythemia: Status: Acute (5) Schizophrenia: Status: Chronic (6) Diabetes mellitus, type 2: (7) HTN (hypertension): Discharge Plan Disposition Patient Disposition: Home Condition: Improving Discharge Details Reason For Visit: Dehydration, Hypokalemia, Hypomag Admit Date/Time: 12/19/22 18:10 Admit Provider: Brice Hickman Attending Provider: Brice Hickman Primary Care Provider: Nisha Carrillo Hospital Course Hospital Course: This is a 62-year-old gentleman well-known to the hospital with a history of chronic schizophrenia who presented to the emergency department for reports of not taking his usual psychiatric medications at night and having poor intake with suspicion of dehydration. He was noted to have hypokalemia and hypomagnesemia both which were replaced. Given IV fluids and was taking good oral intake. He was restarted on his home medications which she is agreeable to taking. His dose of clozapine was reduced secondary to pharmacy recommendations. He is stable and requesting discharge to home. He is agreeable to taking his medication. He will be discharged on 100 mg of clozapine at bedtime and will be titrated by outpatient team. Hemodynamically and medically he is stable and returned to his baseline.? He is safe for discharge to home Discharge discussed with Dr. Hickman Home Meds and New Rx's Prescriptions: Continued Eliquis 5 MG tablet 5 mg PO BID Qty: 180 12RF sennosides [senna] 8.6 MG tablet 8.6 mg PO BID PRN1 Days Rx Instructions: prn divalproex 500 mg tablet extended release 24 hr 2,000 mg PO HS Rx Instructions: takes at 1600 loratadine 10 mg tablet 10 mg PO DAILY PRN lorazepam 0.5 mg tablet 0.5 mg PO .QH PRN triamcinolone acetonide 0.1 % cream 1 applic topical BID [place] Thyroid 90 MG tablet 90 mg PO QAM melatonin 3 MG tablet extended release 3 mg PO HS PRN ropinirole 1 mg Tablet 1 mg PO DIRECTED Rx Instructions: DAILY at 1600 albuterol sulfate [Ventolin HFA] 90 mcg/actuation Hfa Aerosol Inhaler 2 puff INHALATION Q4H PRN polyethylene glycol 3350 [Miralax] 17 gram/dose powder 17 g PO BID PRN Patient Comments: 17 gram by mouth once a day as needed metformin 1,000 mg tablet 1,000 mg PO BID potassium chloride 20 mEq tablet extended release 10 meq PO DAILY atorvastatin [Lipitor] 10 MG tablet 40 mg PO QPM Qty: 0 0RF docusate sodium 100 mg capsule 200 mg PO BID PRN furosemide 20 mg tablet 40 mg PO DAILY clozapine 100 mg tablet 100 mg PO QHS Patient Comments: Pt states not taking stopped 9 days ago Rx Instructions: Take in combination with two 200 mg tabs for total dose of 500 mg po qhs metoprolol succinate 25 mg Tablet Extended Release 24 Hr 12.5 mg PO DAILY Qty: 30 0RF magnesium chloride 64 mg magnesium tablet 64 mg PO DAILY Qty: 30 0RF Held clozapine 200 mg tablet 400 mg PO HS Hold Instructions: titrate back up per outpatient Patient Comments: pt states not taking stopped 9 days ago Rx Instructions: With 100 mg tab for total of 500 mg po qhs Discharge Instructions Instructions: Dehydration (DC) Stand Alone Forms: Nursing Discharge Form Referrals: Nisha Carrillo MD [Primary Care Provider] - (A voicemail was left for your PCP to call and set you up an appointment in the next 1-2 weeks ) Activity:: Activity as Tolerated Equipment/Supplies:: No Equipment Needed Diet:: As Tolerated Discharge Orders Discharge Orders: Discharge Order (Routine); Ordered 12/20/22 Ordered By: Odalys Johns Discharge Data Discharge Date/Time-TO BE ENTERED AT DEPARTURE: 12/20/22 13:48 DS: Summary Time Spent with Patient providing and/or coordinating discharge services: Less than 30 minutes Status at Discharge Functional status at discharge: independent ambulation Overall status at discharge: patient is back to baseline Mental Status: other Speech and Movement: other Mood: anxious mood and other Affect: blunted Exam Psych Mental Status: other Speech and Movement: other Mood: anxious mood and other Affect: blunted DS: Data Vitals/I&O Vitals and I&O: Vital Signs Temperature 36.5 C 12/20/22 11:02 Temperature Source Tympanic 12/20/22 11:02 Pulse 89 12/20/22 11:02 Pulse Rhythm Regular 12/19/22 21:32 Respiratory Rate 19 12/20/22 11:02 Respiratory Effort Normal, Non-Labored 12/19/22 16:12 Respiratory Depth Normal 12/19/22 16:12 Respiratory Pattern Normal 12/19/22 16:12 Blood Pressure 115/79 12/20/22 11:02 Blood Pressure Position Sitting 12/19/22 15:58 Pulse Oximetry 96 12/20/22 11:02 Oxygen Delivery Method Room Air 12/20/22 11:02 Oxygen Flow Rate 0 12/20/22 11:02 Pain Level 0 12/20/22 11:02 Intake & Output 12/19/22 12/20/22 12/20/22 23:59 11:59 23:59 Intake Total 2350 / 2350 1000 / 1000 Output Total 300 / 300 Balance 2350 / 2350 700 / 700 Weight 103.6 kg 77.5 kg Intake: IV 2350 / 2350 1000 / 1000 Output: Urine 300 / 300 Other: Urine Color Yellow Urine Appearance Cloudy Urine Odor Normal Comment voided idependently Voiding Methods Toilet Data Completed and Pending Labs on day of discharge: Labs from last 24 hours 12/20/22 12/20/22 12/19/22 06:20 06:20 17:34 WBC 8.72 RBC 5.27 Hgb 16.6 Hct 46.0 MCV 87 MCH 31.5 MCHC 36.1 H RDW 12.2 Plt Count 209 MPV 12.5 H Immature Gran % Neutrophils % Lymphocytes % Monocytes % Eosinophils % Basophils % Nucleated RBC % Absolute Neutrophils Absolute Lymphocytes Absolute Monocytes Absolute Eosinophils Absolute Basophils Sodium 135 L Potassium 3.2 L Chloride 100 Carbon Dioxide 20.8 L Anion Gap 14.2 H BUN 16 Creatinine 0.9 Est GFR (CKD-EPI 2020) 95.37 Glucose 173 H Calcium 8.9 Magnesium 1.7 L Total Bilirubin 0.9 AST 16 ALT 21 Alkaline Phosphatase 92 Troponin I Total Protein 7.0 Albumin 3.4 TSH Urine Color Yellow Urine Clarity Sl Cloudy Urine pH 5.5 Ur Specific [place] 1.025 Urine Protein 30 H Urine Ketones >=160 H Urine Blood Trace-intact H Urine Nitrite Negative Urine Bilirubin Large H Urine Urobilinogen 2.0 H Ur Leukocyte Esterase Trace H Urine RBC 0-2 Urine WBC 3-5 Ur Epithelial Cells Few Urine Crystals Negative Urine Bacteria Few Urine Casts 0-2 Hyaline Urine Mucus Trace Ur Culture Indicated? Yes Urine Glucose Negative Urine Opiates Screen Ur Barbiturates Screen Valproic Acid Ur Tricyclics Screen Ur Amphetamines Screen U Benzodiazepines Scrn Urine Cocaine Screen Ur THC Screen Ethyl Alcohol 12/19/22 12/19/22 12/19/22 17:34 16:20 16:20 WBC 11.73 H RBC 5.81 H Hgb 18.2 H Hct 50.6 H MCV 87 MCH 31.3 MCHC 36.0 RDW 12.2 Plt Count 247 MPV 11.7 H Immature Gran % 0.4 Neutrophils % 67.1 Lymphocytes % 25.1 Monocytes % 6.4 Eosinophils % 0.5 Basophils % 0.5 Nucleated RBC % 0.0 Absolute Neutrophils 7.87 H Absolute Lymphocytes 2.94 Absolute Monocytes 0.75 Absolute Eosinophils 0.06 Absolute Basophils 0.06 Sodium Potassium Chloride Carbon Dioxide Anion Gap BUN Creatinine Est GFR (CKD-EPI 2020) Glucose Calcium Magnesium Total Bilirubin AST ALT Alkaline Phosphatase Troponin I Total Protein Albumin TSH Urine Color Urine Clarity Urine pH Ur Specific [place] Urine Protein Urine Ketones Urine Blood Urine Nitrite Urine Bilirubin Urine Urobilinogen Ur Leukocyte Esterase Urine RBC Urine WBC Ur Epithelial Cells Urine Crystals Urine Bacteria Urine Casts Urine Mucus Ur Culture Indicated? Urine Glucose Urine Opiates Screen Negative Ur Barbiturates Screen Negative Valproic Acid < 3 Ur Tricyclics Screen Negative Ur Amphetamines Screen Negative U Benzodiazepines Scrn Negative Urine Cocaine Screen Negative Ur THC Screen Negative Ethyl Alcohol 12/19/22 16:20 WBC RBC Hgb Hct MCV MCH MCHC RDW Plt Count MPV Immature Gran % Neutrophils % Lymphocytes % Monocytes % Eosinophils % Basophils % Nucleated RBC % Absolute Neutrophils Absolute Lymphocytes Absolute Monocytes Absolute Eosinophils Absolute Basophils Sodium 137 Potassium 3.0 L Chloride 96 L Carbon Dioxide 20.0 L Anion Gap 21.0 H BUN 20 H Creatinine 1.1 Est GFR (CKD-EPI 2020) 74.96 Glucose 111 H Calcium 9.3 Magnesium 1.4 L Total Bilirubin 0.8 AST < 5 L ALT 28 Alkaline Phosphatase 95 Troponin I < 50 Total Protein 7.8 Albumin 3.8 TSH 1.03 Urine Color Urine Clarity Urine pH Ur Specific [place] Urine Protein Urine Ketones Urine Blood Urine Nitrite Urine Bilirubin Urine Urobilinogen Ur Leukocyte Esterase Urine RBC Urine WBC Ur Epithelial Cells Urine Crystals Urine Bacteria Urine Casts Urine Mucus Ur Culture Indicated? Urine Glucose Urine Opiates Screen Ur Barbiturates Screen Valproic Acid Ur Tricyclics Screen Ur Amphetamines Screen U Benzodiazepines Scrn Urine Cocaine Screen Ur THC Screen Ethyl Alcohol < 3.0 Preliminary micro results at discharge 12/19/22 17:34 Urine Culture - Preliminary Urine - Reflex from [facility] All Active Problems (Updated 12/19/22 @ 19:46 by Julius Calderon) Polycythemia (Acute) Dehydration (Acute) Hypokalemia (Acute) Hypomagnesemia (Acute) Schizophrenia (Chronic) Weight gain (Acute 10/22/16) Screening for colorectal cancer (Acute) Heel ulcer (Acute) Medication monitoring encounter (Acute) Acute ischemic stroke (Acute) C1 cervical fracture (Acute) Chronic schizophrenia (Chronic) Ambulatory dysfunction (Acute) Alteration in thought content as evidenced by delusions (Acute) BRENNEN (acute kidney injury) (Acute) Medical History Afib Atrial enlargement, bilateral BCC (basal cell carcinoma of skin) Chronic constipation Diabetes mellitus, type 2 Diverticulosis Facial basal cell cancer (02/04/16) HTN (hypertension) (02/04/16) Hypothyroidism Non-ST elevation [place] (NSTEMI) OAB (overactive bladder) Obesity RLS (restless legs syndrome) 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 Father Heart disease Brother Alcohol abuse Social History Smoking/Tobacco Use Status: Current every day Tobacco Type: cigarettes Smoking risk assessment performed?: Yes Alcohol Intake: current Alcohol Intake frequency: holidays/special occasions only Alcohol type: beer and hard liquor Drug use: Current Sobriety Substance use type: does not use Housing: other Current gender identity: male Do you feel safe at home: Yes Do you feel safe in your relationship?: Yes Time Spent with Patient Time Spent with Patient: <45 minutes Time was spent: preparing to see the patient(eg.review tests), obtaining and/or reviewing separately otained hiistory, ordering medications,tests, procedures, indepentently interpreting results, counseling the patient and care coordination
--- NOTE | 2022-12-20 14:07 | PDOC.CMDIS ---
Date of service: 12/20/22 Time of Service: 14:07 LACE Index Scoring Tool Questions: Length of Stay (in days): 1 Was the patient admitted via the E.D.?: Yes Comorbidities: Any Tumor (Basal cell carcinoma) E.D. Visits: 5 Answers: Total Score: 10 Risk of Readmission: High Risk Care Management Discharge Plan Reason for Hospitalization: Dehydration, Hypokalemia, Hypomagnesemia Discharge Plan: Judd is discharged home with no new services. He will follow up with his PCP, [facility] and discharge plan of care as instructed. He is transported home via [facility] private sheet pile driver operator coordinated by CM. Patient/Family Education Needs: Nursing staff review discharge instructions including medications and follow up plan of care; discuss Ask Me Three and self management. Services Needed at Discharge: Transportation ([facility] private sheet pile driver operator)
== END 2022-12-20 13:48 | disposition home or self-care (01) | DRG 641 ==
LOC: ER 18:19 → MS 19:48
PROVIDERS: Family Medicine; Admitting Provider Internal Medicine; Emergency Provider Emergency Medicine; PCP Family Medicine; Visit Provider Internal Medicine
DX: E86.0 Dehydration (principal); E87.6 Hypokalemia; E83.42 Hypomagnesemia; D75.1 Secondary polycythemia; F20.9 Schizophrenia, unspecified; E11.9 Type 2 diabetes mellitus without complications; I10 Essential (primary) hypertension; Z79.84 Long term (current) use of oral hypoglycemic drugs; Z79.01 Long term (current) use of anticoagulants; Z86.73 Personal history of transient ischemic attack (TIA), and cerebral infarction without residual deficits; I48.91 Unspecified atrial fibrillation; K59.09 Other constipation; E03.9 Hypothyroidism, unspecified; I25.2 Old myocardial infarction; G25.81 Restless legs syndrome; F17.210 Nicotine dependence, cigarettes, uncomplicated; R26.81 Unsteadiness on feet; H43.391 Other vitreous opacities, right eye
CPT/HCPCS: 36415; 80053; 80307; 85027; 93005; 96360; 99285; 70450; 71046; 80164; 80320; 81003; 81015; 83735; 84443; 84484; 85025; 87086; 93010; 99223; 99238; J0696; J2060; J3480

== ENCOUNTER 2022-12-26 01:28 | Outpatient (CLI) | payer MEDICARE, MEDICAID, SELFPAY ==
[2022-12-26 10:38] LABS: Abs Immature Grans 0.05 10^3/uL (0.0-0.06); Absolute Basophil Count 0.04 10^3/uL (0.0-0.2); Absolute Eosinophil Count 0.09 10^3/uL (0.0-0.7); Absolute Lymphocyte Count 2.43 10^3/uL (1.2-3.4); Absolute Monocyte Count 0.64 10^3/uL (0.1-0.8); Absolute Neutrophil Count 4.76 10^3/uL (1.2-6.7); Basophils % 0.5; Eosinophils % 1.1; HCT 52.9 % (40.0-50.0); HGB 18.5 g/dL (13.5-17.5); Immature Grans % 0.6; Lymphocytes % 30.3; MCH 31.6 pg (27.0-33.0); MCV 90 fL (80-95); MPV 11.9 fL (8.0-11.0); Neutrophils % 59.5; Platelet Count 227 10^3/uL (130-400); RBC 5.85 10^6/uL (4.36-5.78); RDW 12.8 % (11.8-14.1); RDW-SD 41.5 fL; WBC 8.01 10^3/uL (4.4-10.8)
[2022-12-26 10:56] LABS: VALPROIC ACID 22.5 ug/mL
[2022-12-26 10:59] LABS: Ammonia < 10 umol/L (11-32)
== END 2022-12-26 01:29 | disposition home or self-care (01) ==
LOC: LBO 01:28
PROVIDERS: PCP Family Medicine; Visit Provider Counselor Addiction (Substance Use Disorder)
DX: F25.0 Schizoaffective disorder, bipolar type (principal); E86.0 Dehydration; R68.89 Other general symptoms and signs; Z79.899 Other long term (current) drug therapy; Z51.81 Encounter for therapeutic drug level monitoring; R41.82 Altered mental status, unspecified
CPT/HCPCS: 36415; 80164; 82140; 85025

== ENCOUNTER 2023-01-02 01:19 | Outpatient (CLI) | payer MEDICARE, MEDICAID, SELFPAY ==
[2023-01-02 10:49] LABS: Abs Immature Grans 0.04 10^3/uL (0.0-0.06); Absolute Basophil Count 0.04 10^3/uL (0.0-0.2); Absolute Eosinophil Count 0.09 10^3/uL (0.0-0.7); Absolute Neutrophil Count 5.67 10^3/uL (1.2-6.7); Basophils % 0.4; Immature Grans % 0.4; Lymphocytes % 30.3; MCH 31.1 pg (27.0-33.0); MCHC 34.6 % (32.0-36.0); MCV 90 fL (80-95); MPV 11.1 fL (8.0-11.0); Monocytes % 6.5; Neutrophils % 61.4; Platelet Count 227 10^3/uL (130-400); RBC 6.23 10^6/uL (4.36-5.78); RDW 12.6 % (11.8-14.1); RDW-SD 41.1 fL; WBC 9.24 10^3/uL (4.4-10.8)
[2023-01-02 11:02] LABS: HGB 19.4 g/dL (13.5-17.5)
== END 2023-01-02 01:20 | disposition home or self-care (01) ==
LOC: LBO 01:20
PROVIDERS: PCP Family Medicine; Visit Provider Counselor Addiction (Substance Use Disorder)
DX: F20.9 Schizophrenia, unspecified (principal); Z79.899 Other long term (current) drug therapy
CPT/HCPCS: 36415; 80164; 82140; 85025

== ENCOUNTER 2023-01-09 02:17 | Outpatient (CLI) | payer MEDICARE, MEDICAID, SELFPAY ==
[2023-01-09 10:31] LABS: Abs Immature Grans 0.05 10^3/uL (0.0-0.06); Absolute Basophil Count 0.05 10^3/uL (0.0-0.2); Absolute Eosinophil Count 0.15 10^3/uL (0.0-0.7); Absolute Lymphocyte Count 2.98 10^3/uL (1.2-3.4); Absolute Monocyte Count 0.69 10^3/uL (0.1-0.8); Absolute Neutrophil Count 5.71 10^3/uL (1.2-6.7); Basophils % 0.5; Eosinophils % 1.6; HCT 49.5 % (40.0-50.0); HGB 17.2 g/dL (13.5-17.5); Immature Grans % 0.5; Lymphocytes % 30.9; MCH 31.4 pg (27.0-33.0); MCHC 34.7 % (32.0-36.0); MCV 91 fL (80-95); MPV 11.6 fL (8.0-11.0); Monocytes % 7.2; Neutrophils % 59.3; Platelet Count 187 10^3/uL (130-400); RBC 5.47 10^6/uL (4.36-5.78); RDW 12.8 % (11.8-14.1); RDW-SD 42.7 fL; WBC 9.63 10^3/uL (4.4-10.8)
== END 2023-01-09 02:18 | disposition home or self-care (01) ==
LOC: LBO 02:17
PROVIDERS: PCP Family Medicine; Visit Provider Counselor Addiction (Substance Use Disorder)
DX: Z79.899 Other long term (current) drug therapy (principal); F20.9 Schizophrenia, unspecified
CPT/HCPCS: 36415; 85025

== ENCOUNTER 2023-01-16 02:35 | Outpatient (CLI) | payer MEDICARE, MEDICAID, SELFPAY ==
[2023-01-16 10:38] LABS: Abs Immature Grans 0.05 10^3/uL (0.0-0.06); Absolute Basophil Count 0.03 10^3/uL (0.0-0.2); Absolute Eosinophil Count 0.09 10^3/uL (0.0-0.7); Absolute Lymphocyte Count 2.92 10^3/uL (1.2-3.4); Absolute Monocyte Count 0.75 10^3/uL (0.1-0.8); Absolute Neutrophil Count 5.38 10^3/uL (1.2-6.7); Basophils % 0.3; HGB 16.2 g/dL (13.5-17.5); Immature Grans % 0.5; Lymphocytes % 31.7; MCH 31.6 pg (27.0-33.0); MCHC 35.2 % (32.0-36.0); MCV 90 fL (80-95); MPV 10.7 fL (8.0-11.0); Monocytes % 8.1; Neutrophils % 58.4; Platelet Count 239 10^3/uL (130-400); RBC 5.12 10^6/uL (4.36-5.78); RDW 12.6 % (11.8-14.1); RDW-SD 41.8 fL; WBC 9.22 10^3/uL (4.4-10.8)
== END 2023-01-16 02:36 | disposition home or self-care (01) ==
LOC: LBO 02:35
PROVIDERS: PCP Family Medicine; Visit Provider Counselor Addiction (Substance Use Disorder)
DX: F20.9 Schizophrenia, unspecified (principal); Z79.899 Other long term (current) drug therapy
CPT/HCPCS: 36415; 85025

== ENCOUNTER 2023-01-23 02:33 | Outpatient (CLI) | payer MEDICARE, MEDICAID, SELFPAY ==
[2023-01-23 10:43] LABS: Absolute Basophil Count 0.07 10^3/uL (0.0-0.2); Absolute Eosinophil Count 0.13 10^3/uL (0.0-0.7); Absolute Monocyte Count 0.75 10^3/uL (0.1-0.8); Absolute Neutrophil Count 5.53 10^3/uL (1.2-6.7); Basophils % 0.7; Eosinophils % 1.3; HCT 47.6 % (40.0-50.0); HGB 16.3 g/dL (13.5-17.5); Lymphocytes % 35.4; MCH 30.9 pg (27.0-33.0); MCHC 34.2 % (32.0-36.0); MCV 90 fL (80-95); Monocytes % 7.4; Neutrophils % 54.2; Platelet Count 302 10^3/uL (130-400); RBC 5.28 10^6/uL (4.36-5.78); RDW 13.3 % (11.8-14.1); RDW-SD 43.5 fL; WBC 10.18 10^3/uL (4.4-10.8)
[2023-01-23 11:12] LABS: Hemoglobin A1C 6.3 % (<5.7)
== END 2023-01-23 02:34 | disposition home or self-care (01) ==
LOC: LBO 02:33
PROVIDERS: PCP Family Medicine; Visit Provider Counselor Addiction (Substance Use Disorder)
DX: E11.9 Type 2 diabetes mellitus without complications (principal); F20.9 Schizophrenia, unspecified; Z79.899 Other long term (current) drug therapy
CPT/HCPCS: 36415; 83036; 85025

== ENCOUNTER 2023-01-30 10:36 | Outpatient (CLI) | payer MEDICARE, MEDICAID, SELFPAY ==
[2023-01-30 10:46] LABS: Abs Immature Grans 0.07 10^3/uL (0.0-0.06); Absolute Basophil Count 0.04 10^3/uL (0.0-0.2); Absolute Eosinophil Count 0.17 10^3/uL (0.0-0.7); Absolute Lymphocyte Count 2.58 10^3/uL (1.2-3.4); Absolute Monocyte Count 0.51 10^3/uL (0.1-0.8); Absolute Neutrophil Count 5.82 10^3/uL (1.2-6.7); Basophils % 0.4; Eosinophils % 1.8; HCT 50.8 % (40.0-50.0); HGB 17.2 g/dL (13.5-17.5); Immature Grans % 0.8; Lymphocytes % 28.1; MCHC 33.9 % (32.0-36.0); MCV 92 fL (80-95); MPV 10.1 fL (8.0-11.0); Monocytes % 5.5; Neutrophils % 63.4; Platelet Count 269 10^3/uL (130-400); RBC 5.55 10^6/uL (4.36-5.78); RDW 13.4 % (11.8-14.1); RDW-SD 45.4 fL; WBC 9.19 10^3/uL (4.4-10.8)
== END 2023-01-30 10:37 | disposition home or self-care (01) ==
LOC: LBO 10:36
PROVIDERS: PCP Family Medicine; Visit Provider Counselor Addiction (Substance Use Disorder)
DX: F20.9 Schizophrenia, unspecified (principal); Z79.899 Other long term (current) drug therapy
CPT/HCPCS: 36415; 85025

== ENCOUNTER 2023-02-06 02:43 | Outpatient (CLI) | payer MEDICARE, MEDICAID, SELFPAY ==
[2023-02-06 10:34] LABS: Abs Immature Grans 0.06 10^3/uL (0.0-0.06); Absolute Basophil Count 0.05 10^3/uL (0.0-0.2); Absolute Eosinophil Count 0.17 10^3/uL (0.0-0.7); Absolute Lymphocyte Count 2.62 10^3/uL (1.2-3.4); Absolute Monocyte Count 0.63 10^3/uL (0.1-0.8); Basophils % 0.6; HCT 47.2 % (40.0-50.0); HGB 16.2 g/dL (13.5-17.5); Immature Grans % 0.7; Lymphocytes % 30.7; MCH 31.7 pg (27.0-33.0); MCHC 34.3 % (32.0-36.0); MCV 92 fL (80-95); MPV 10.9 fL (8.0-11.0); Monocytes % 7.4; Neutrophils % 58.6; Platelet Count 218 10^3/uL (130-400); RBC 5.11 10^6/uL (4.36-5.78); RDW 13.9 % (11.8-14.1); RDW-SD 47.1 fL; WBC 8.53 10^3/uL (4.4-10.8)
== END 2023-02-06 02:44 | disposition home or self-care (01) ==
LOC: LBO 02:44
PROVIDERS: PCP Family Medicine; Visit Provider Counselor Addiction (Substance Use Disorder)
DX: F20.9 Schizophrenia, unspecified (principal); Z79.899 Other long term (current) drug therapy
CPT/HCPCS: 36415; 85025

== ENCOUNTER 2023-02-13 10:38 | Outpatient (CLI) | payer MEDICARE, MEDICAID, SELFPAY ==
[2023-02-13 11:07] LABS: Abs Immature Grans 0.04 10^3/uL (0.0-0.06); Absolute Basophil Count 0.06 10^3/uL (0.0-0.2); Absolute Eosinophil Count 0.13 10^3/uL (0.0-0.7); Absolute Lymphocyte Count 2.75 10^3/uL (1.2-3.4); Absolute Monocyte Count 0.73 10^3/uL (0.1-0.8); Absolute Neutrophil Count 5.71 10^3/uL (1.2-6.7); Basophils % 0.6; Eosinophils % 1.4; HCT 48.6 % (40.0-50.0); HGB 16.3 g/dL (13.5-17.5); Immature Grans % 0.4; Lymphocytes % 29.2; MCHC 33.5 % (32.0-36.0); MCV 92 fL (80-95); MPV 10.4 fL (8.0-11.0); Monocytes % 7.7; Neutrophils % 60.7; Platelet Count 245 10^3/uL (130-400); RBC 5.26 10^6/uL (4.36-5.78); RDW 13.7 % (11.8-14.1); RDW-SD 46.5 fL; WBC 9.42 10^3/uL (4.4-10.8)
== END 2023-02-13 10:39 | disposition home or self-care (01) ==
LOC: LBO 10:38
PROVIDERS: PCP Family Medicine; Visit Provider Counselor Addiction (Substance Use Disorder)
DX: F20.9 Schizophrenia, unspecified (principal); Z79.899 Other long term (current) drug therapy
CPT/HCPCS: 36415; 85025

== ENCOUNTER 2023-02-20 11:46 | Outpatient (CLI) | payer MEDICARE, MEDICAID, SELFPAY ==
[2023-02-20 10:40] LABS: Abs Immature Grans 0.06 10^3/uL (0.0-0.06); Absolute Basophil Count 0.04 10^3/uL (0.0-0.2); Absolute Eosinophil Count 0.11 10^3/uL (0.0-0.7); Absolute Monocyte Count 0.53 10^3/uL (0.1-0.8); Absolute Neutrophil Count 4.93 10^3/uL (1.2-6.7); Basophils % 0.5; Eosinophils % 1.4; HCT 47.5 % (40.0-50.0); HGB 15.9 g/dL (13.5-17.5); Immature Grans % 0.7; Lymphocytes % 29.7; MCH 31.6 pg (27.0-33.0); MCHC 33.5 % (32.0-36.0); MCV 94 fL (80-95); MPV 10.6 fL (8.0-11.0); Monocytes % 6.6; Neutrophils % 61.1; Platelet Count 264 10^3/uL (130-400); RBC 5.03 10^6/uL (4.36-5.78); RDW 13.9 % (11.8-14.1); RDW-SD 48.6 fL; WBC 8.07 10^3/uL (4.4-10.8)
== END 2023-02-20 11:47 | disposition home or self-care (01) ==
LOC: LBO 11:47
PROVIDERS: PCP Family Medicine; Visit Provider Counselor Addiction (Substance Use Disorder)
DX: F20.9 Schizophrenia, unspecified (principal); Z79.899 Other long term (current) drug therapy
CPT/HCPCS: 36415; 85025

== ENCOUNTER 2023-02-27 14:20 | Outpatient (CLI) | payer MEDICARE, MEDICAID, SELFPAY ==
[2023-02-27 10:47] LABS: Abs Immature Grans 0.05 10^3/uL (0.0-0.06); Absolute Basophil Count 0.03 10^3/uL (0.0-0.2); Absolute Eosinophil Count 0.13 10^3/uL (0.0-0.7); Absolute Lymphocyte Count 2.48 10^3/uL (1.2-3.4); Absolute Monocyte Count 0.65 10^3/uL (0.1-0.8); Absolute Neutrophil Count 6.54 10^3/uL (1.2-6.7); Basophils % 0.3; Eosinophils % 1.3; HCT 49.9 % (40.0-50.0); HGB 16.9 g/dL (13.5-17.5); Immature Grans % 0.5; Lymphocytes % 25.1; MCH 31.7 pg (27.0-33.0); MCHC 33.9 % (32.0-36.0); MCV 94 fL (80-95); MPV 10.4 fL (8.0-11.0); Monocytes % 6.6; Neutrophils % 66.2; Platelet Count 261 10^3/uL (130-400); RBC 5.33 10^6/uL (4.36-5.78); RDW 13.6 % (11.8-14.1); RDW-SD 46.9 fL; WBC 9.88 10^3/uL (4.4-10.8)
== END 2023-02-27 14:21 | disposition home or self-care (01) ==
LOC: LBO 14:20
PROVIDERS: PCP Family Medicine; Visit Provider Counselor Addiction (Substance Use Disorder)
DX: F20.9 Schizophrenia, unspecified (principal); Z79.899 Other long term (current) drug therapy
CPT/HCPCS: 36415; 85025

== ENCOUNTER 2023-03-05 15:02 | Emergency (ER) | payer MEDICARE, MEDICAID, SELFPAY ==
[2023-03-05] VITALS (34 sets, daily range): BP systolic 118–144; BP diastolic 62–83; PULSE 74–105; RESP 14–25; TEMP 36.1; O2SAT 92–97
--- NOTE | 2023-03-05 15:00 | DI.CT_ITS ---
Exam(s) CT HEAD - STROKE PROTOCOL EXAM: CT HEAD - STROKE PROTOCOL CLINICAL HISTORY: left facial droop dysarthria LKN 1330. TECHNIQUE: Imaging Protocol: Axial computed tomography images with coronal and sagittal reformatted images were created and reviewed COMPARISON: CT CT HEAD WO from 12/19/2022 FINDINGS: There are no skull fractures. There is no fluid in the visualized paranasal sinuses. There is no evidence of intracranial hemorrhage, mass effect, or shift of midline structures. There are no extra-axial fluid collections. The ventricles are not enlarged or shifted and there is no blo od within the ventricular system nor within the basal cisterns. IMPRESSION: No acute intracranial findings on this noninfused CT scan of the brain. Called by myself to ER physician. RADIATION DOSE DELIVERED: 854.93mGy.cm Total DLP DATA REPOSITORY: All CT scans at this facility are submitted to the National Radiology Data Registry (NRDR) Dose Index Registry (DIR) with the [employer] (ACR). RADIATION OPTIMIZATION: All CT scans at this facility use at least one of these dose optimization te chniques: automated exposure control; mA and/or kV adjustment per patient size (includes targeted exa ms where dose is matched to clinical indication); or iterative reconstruction.
--- NOTE | 2023-03-05 15:00 | RT.EKG_ITS ---
APPROVED REPORT Exam: Resting ECG Reason for Exam: stroke Patient Location: E HR:86 bpm ECG Measurements Heart Rate 86 AXIS UT [id number] P [id number] QRSd 92 QRS 56 QT 410 T 13 QTc 491 Conclusion Atrial fibrillation...V-rate 68- 98, No ST segment or T wave abnormalities to suggest occlusive NC
--- NOTE | 2023-03-05 15:15 | DI.RAD_ITS ---
Exam(s) XR CHEST 1V IN DI DEPT EXAM: XR CHEST 1V IN DI DEPT CLINICAL HISTORY: dysarthria, drooling TECHNIQUE: 2D digital imaging was performed of the chest. Two images were obtained. AP views were obtained. COMPARISON: CR XR CHEST 1V IN DI DEPT from 12/05/2022 FINDINGS: MEDIASTINUM: Normal. HEART: Cardiomegaly. PULMONARY VASCULATURE: Normal. LUNGS: No focal consolidating infiltrates. PLEURAL SPACE: No pleural effusion or pneumothorax. BONE:Within normal limits for the patient's age. OTHER FINDINGS:Normal. IMPRESSION: Cardiomegaly. No focal consolidating infiltrates. DATA REPOSITORY: RADIATION DOSE DELIVERED:
[2023-03-05 15:45] LABS: Abs Immature Grans 0.04 10^3/uL (0.0-0.06); Absolute Basophil Count 0.04 10^3/uL (0.0-0.2); Absolute Eosinophil Count 0.12 10^3/uL (0.0-0.7); Absolute Lymphocyte Count 2.91 10^3/uL (1.2-3.4); Absolute Monocyte Count 0.75 10^3/uL (0.1-0.8); Absolute Neutrophil Count 5.11 10^3/uL (1.2-6.7); Basophils % 0.4; Eosinophils % 1.3; HCT 50.6 % (40.0-50.0); HGB 17.5 g/dL (13.5-17.5); Immature Grans % 0.4; Lymphocytes % 32.4; MCH 31.7 pg (27.0-33.0); MCHC 34.6 % (32.0-36.0); MCV 92 fL (80-95); MPV 10.6 fL (8.0-11.0); Monocytes % 8.4; Neutrophils % 57.1; Platelet Count 252 10^3/uL (130-400); RBC 5.52 10^6/uL (4.36-5.78); RDW 13.2 % (11.8-14.1); RDW-SD 45.1 fL; WBC 8.97 10^3/uL (4.4-10.8)
[2023-03-05 15:58] LABS: ALT 23 U/L (16-63); AST 17 U/L (15-37); Albumin 3.8 g/dL (3.4-5.0); Alkaline Phosphatase 103 U/L (46-116); Anion Gap 12.4 mmol/L (3-11); BUN 12 mg/dL (7-18); Bilirubin, Total 0.5 mg/dL (0.2-1.0); CO2 24.6 mmol/L (21.0-32.0); Calcium 9.7 mg/dL (8.5-10.1); Chloride 101 mmol/L (98-107); Estimated GFR 84.05 (mL/min/1.73m2); Glucose 178 mg/dL (74-106); Magnesium 1.8 mg/dL (1.8-2.4); Sodium 138 mmol/L (136-145); Total Protein 7.7 g/dL (6.4-8.2); Troponin I < 50 ng/L (<or=60)
[2023-03-05 16:00] LABS: Prothrombin Time 9.9 sec (9.3-11.0)
[2023-03-05 16:17] LABS: ETHANOL BLOOD < 3.0 mg/dL (<10)
[2023-03-05 16:58] LABS: Salicylate 3.2 mg/dL (<2.8)
[2023-03-05 17:05] LABS: Acetaminophen < 2 ug/mL (10-30)
[2023-03-05 18:01] LABS: *AMPHETAMINES SCREEN URINE Negative (Negative); *BARBITURATES SCREEN URINE Negative (Negative); *BENZODIAZEPINES SCREEN URINE Negative (Negative); Cannabinoids THC Negative (Negative); Cocaine Screen,Urine Negative (Negative); METHADONE URINE SCREEN Negative (Negative); OPIATES URINE SCREEN Negative (Negative)
[2023-03-05 18:02] LABS: Tricyclic Antidepressants Negative (Negative)
--- NOTE | 2023-03-05 18:13 | DI.CT_ITS ---
Exam(s) CT BRAIN NECK CTA EXAM: CT BRAIN NECK CTA CLINICAL HISTORY: dysarthria. TECHNIQUE: Imaging Protocol: Axial CT angiography was performed with multi-slice acquisition and mu lti-planar and/or 3D reconstructions. CONTRAST MATERIAL: Intravenous: Omnipaque 350 contrast volume:85 mL COMPARISON: CT CT HEAD WO from 12/19/[address] HEAD - STROKE PROTOCOL from 03/05/2023 FINDINGS: CT Head W/O and W: Ventricles and Extra axial spaces: Normal in size and morphology for the patient's age. Hemorrhage: None. Cerebral parenchyma: Normal. Midline shift: None. Brainstem/Cerebellum: Normal. Calvarium: Normal. Visualized Paranasal sinuses/Mastoids: Clear. Soft Tissues: Unremarkable. Enhancement: Unremarkable. CTA Neck W: Common Carotid: Right: No dissection, occlusion or significant stenosis. Left: No dissection, occlusion or significant stenosis. External Carotid: Right: No occlusion or significant stenosis. Left: No occlusion or significant stenosis. Internal Carotid: Right: No dissection, occlusion or significant stenosis. Left: No dissection, occlusion or significant stenosis. Vertebral Artery: There is a dominant right vertebral artery. Right: No dissection, occlusion or significant stenosis. Left: No dissection, occlusion or significant stenosis. Lung Apices: Normal. Bones: Within normal limits for the patient's age. There are degenerative changes seen throughout the cervical spine. Soft Tissues: Normal. Thyroid gland: Unremarkable. CTA Brain W: Internal Carotid Arteries: Mild atherosclerosis on the right. No aneurysm, occlusion or significant stenosis. Anterior Cerebral Arteries: Right: No aneurysm, occlusion or significant stenosis. Left: No aneurysm, occlusion or significant stenosis. Middle Cerebral Arteries: Right: No aneurysm, occlusion or significant stenosis. Left: No aneurysm, occlusion or significant stenosis. Posterior Cerebral Arteries: Right: No aneurysm, occlusion or significant stenosis. The right MEDICAL DOCTOR MD/MEDICAL DIRECTOR arises from the posterior commu nicating artery which is a normal variant. Left: No aneurysm, occlusion or significant stenosis. Vertebral Arteries: Right: No aneurysm, occlusion or significant stenosis. Left: No aneurysm, occlusion or significant stenosis. Basilar Artery: No aneurysm, occlusion or significant stenosis. IMPRESSION: 1. No large vessel occlusion or significant stenosis on the CT angiography of the head. 2. No acute intracranial process. 3. No occlusion or significant stenosis on the CT angiography of the neck. 4. Findings were discussed with the emergency department at 6:44 p.m. on 03/05/2023 RADIATION DOSE DELIVERED: 2,243.95mGy.cm Total DLP DATA REPOSITORY: All CT scans at this facility are submitted to the National Radiology Data Registry (NRDR) Dose Index Registry (DIR) with the [employer] (ACR). RADIATION OPTIMIZATION: All CT scans at this facility use at least one of these dose optimization te chniques: automated exposure control; mA and/or kV adjustment per patient size (includes targeted exa ms where dose is matched to clinical indication); or iterative reconstruction.
[2023-03-05] MEDS: Normal Saline - Diluent 50 ML VIAL IJ (18:20)
[2023-03-05] MEDS: Omnipaque 350 MG/ML 100 ML BTL 85 ML IJ (18:21)
[2023-03-05] MEDS: Normal Saline Flush 10 ML SYR IVP (18:22)
--- NOTE | 2023-03-05 19:18 | W.ED.GENAD ---
Discharge Plan Disposition Patient Disposition: Home Condition: Good Discharge Details Clinical Impression: Overdose Primary Care Provider: Nisha Carrillo ED Provider: Emi Galicia Home Meds and New Rx's Prescriptions: No Action Eliquis 5 MG tablet 5 mg PO BID Qty: 180 12RF sennosides [senna] 8.6 MG tablet 8.6 mg PO BID PRN1 Days Rx Instructions: prn divalproex 500 mg tablet extended release 24 hr 2,000 mg PO HS Rx Instructions: takes at 1600 loratadine 10 mg tablet 10 mg PO DAILY PRN clozapine 200 mg tablet 400 mg PO HS Hold Instructions: titrate back up per outpatient Patient Comments: pt states not taking stopped 9 days ago Rx Instructions: With 100 mg tab for total of 500 mg po qhs lorazepam 0.5 mg tablet 0.5 mg PO .QH PRN triamcinolone acetonide 0.1 % cream 1 applic topical BID [place] Thyroid 90 MG tablet 90 mg PO QAM melatonin 3 MG tablet extended release 3 mg PO HS PRN ropinirole 1 mg Tablet 1 mg PO DIRECTED Rx Instructions: DAILY at 1600 albuterol sulfate [Ventolin HFA] 90 mcg/actuation Hfa Aerosol Inhaler 2 puff INHALATION Q4H PRN polyethylene glycol 3350 [Miralax] 17 gram/dose powder 17 g PO BID PRN Patient Comments: 17 gram by mouth once a day as needed metformin 1,000 mg tablet 1,000 mg PO BID potassium chloride 20 mEq tablet extended release 10 meq PO DAILY atorvastatin [Lipitor] 10 MG tablet 40 mg PO QPM Qty: 0 0RF docusate sodium 100 mg capsule 200 mg PO BID PRN furosemide 20 mg tablet 40 mg PO DAILY clozapine 100 mg tablet 100 mg PO QHS Patient Comments: Pt states not taking stopped 9 days ago Rx Instructions: Take in combination with two 200 mg tabs for total dose of 500 mg po qhs metoprolol succinate 25 mg Tablet Extended Release 24 Hr 12.5 mg PO DAILY Qty: 30 0RF magnesium chloride 64 mg magnesium tablet 64 mg PO DAILY Qty: 30 0RF Discharge Instructions Instructions: Adult Overdose (ED) Additional Instructions: Please be careful how many sleeping pills you take. Call your primary care doctor today to schedule an appointment to follow up on your visit here. Return to the emergency department for new or worsening symptoms. Referrals: Nisha Carrillo MD [Primary Care Provider] - Medical Decision Making 62yo M with hx of polychythemia vera, DM, HTN, CVA, afib, schizophrenia, presenting via EMS for slurred speech. History from patient, EMS, and [facility] medical records. LKNl 90 minutes prior to arrival by a friend, then found with slurred speech and reported left facial droop. For EMS not following commands. On arrival vital signs reassuring, severe dysarthria but following commands here. Diffuse weakness LE > UE, aside from dysarthria non-focal neurologic pattern, no facial droop Will initate broad workup for altered mental status. Patient on eliquis; not eligible for TPA, low suspicion that this is an acute ischemic event based on exam on arrival. -CT non-con head independently reviewed, no mass or intracranial bleed on my view, agree with radiology read below. -EKG atrial fibrillation, no indication of occluisve HI. -CXR independently reviewed, no pneumonia or pneumothorax on my view, agree with radiology read below. -CTA head & neck as below, no large vessel occlusion -Labs reviewed as below, CBC & CMP reassuring with no significant abnormalities. Ethanol, tylenol, salicylate negative. UDS negative. On reassessment patient alert with clear speech. Reports taking too many sleeping pills from his nephew. Remains somewhat week overall but neurologic exam remains reassuring with no focal deficits. Patient requests discharge home which is not unreasonable with reassuring workup here and likely identified provoking factor. He was advised to followup closely with his primary care doctor. Discharged home; discharge instructions including return precautions were reviewed with patient who verbalized understanding. Alll questions were answered and they are in full agreement with the plan. Imaging Data Radiologic Study: Imaging: CT Scan Radiologist's impression: IMPRESSION: No acute intracranial findings on this noninfused CT scan of the brain. Radiologic Study #2: Imaging: CT Scan Radiologist's impression: IMPRESSION: 1. No large vessel occlusion or significant stenosis on the CT angiography of the head.? 2. No acute intracranial process.? 3. No occlusion or significant stenosis on the CT angiography of the neck. Radiologic Study #3: Imaging: X-Ray Radiologist's impression: IMPRESSION: Cardiomegaly.? No focal consolidating infiltrates.? Lab Data Lab results reviewed: Yes I reviewed the patient's lab results. Labs: Laboratory Tests Range/Units 03/05/23 03/05/23 03/05/23 15:26 15:26 15:26 WBC (4.4-10.8) 10^3/uL RBC (4.36-5.78) 10^6/uL Hgb (13.5-17.5) g/dL Hct (40.0-50.0) % MCV (80-95) fL MCH (27.0-33.0) pg MCHC (32.0-36.0) % RDW (11.8-14.1) % Plt Count (130-400) 10^3/uL MPV (8.0-11.0) fL Immature Gran % Neutrophils % Lymphocytes % Monocytes % Eosinophils % Basophils % Nucleated RBC % (0.0-0.3) % Absolute Neutrophils (1.2-6.7) 10^3/uL Absolute Lymphocytes (1.2-3.4) 10^3/uL Absolute Monocytes (0.1-0.8) 10^3/uL Absolute Eosinophils (0.0-0.7) 10^3/uL Absolute Basophils (0.0-0.2) 10^3/uL PT (9.3-11.0) sec 9.9 INR (0.9-1.1) 1.0 Sodium (136-145) mmol/L 138 Potassium (3.5-5.1) mmol/L 4.0 Chloride (98-107) mmol/L 101 Carbon Dioxide (21.0-32.0) mmol/L 24.6 Anion Gap (3-11) mmol/L 12.4 H BUN (7-18) mg/dL 12 Creatinine (0.70-1.30) mg/dL 1.0 Est GFR (CKD-EPI 2020) (mL/min/1.73m2) 84.05 Glucose (74-106) mg/dL 178 H Calcium (8.5-10.1) mg/dL 9.7 Magnesium (1.8-2.4) mg/dL 1.8 Total Bilirubin (0.2-1.0) mg/dL 0.5 AST (15-37) U/L 17 ALT (16-63) U/L 23 Alkaline Phosphatase (46-116) U/L 103 Troponin I (<or=60) ng/L < 50 Total Protein (6.4-8.2) g/dL 7.7 Albumin (3.4-5.0) g/dL 3.8 Salicylates (<2.8) mg/dL 3.2 Urine Opiates Screen (Negative) Urine Methadone Screen (Negative) Acetaminophen (10-30) ug/mL < 2 Ur Barbiturates Screen (Negative) Ur Tricyclics Screen (Negative) Ur Amphetamines Screen (Negative) U Benzodiazepines Scrn (Negative) Urine Cocaine Screen (Negative) Ur THC Screen (Negative) Ethyl Alcohol (<10) mg/dL Range/Units 03/05/23 03/05/23 03/05/23 15:26 15:26 17:41 WBC (4.4-10.8) 10^3/uL 8.97 RBC (4.36-5.78) 10^6/uL 5.52 Hgb (13.5-17.5) g/dL 17.5 Hct (40.0-50.0) % 50.6 H MCV (80-95) fL 92 MCH (27.0-33.0) pg 31.7 MCHC (32.0-36.0) % 34.6 RDW (11.8-14.1) % 13.2 Plt Count (130-400) 10^3/uL 252 MPV (8.0-11.0) fL 10.6 Immature Gran % 0.4 Neutrophils % 57.1 Lymphocytes % 32.4 Monocytes % 8.4 Eosinophils % 1.3 Basophils % 0.4 Nucleated RBC % (0.0-0.3) % 0.0 Absolute Neutrophils (1.2-6.7) 10^3/uL 5.11 Absolute Lymphocytes (1.2-3.4) 10^3/uL 2.91 Absolute Monocytes (0.1-0.8) 10^3/uL 0.75 Absolute Eosinophils (0.0-0.7) 10^3/uL 0.12 Absolute Basophils (0.0-0.2) 10^3/uL 0.04 PT (9.3-11.0) sec INR (0.9-1.1) Sodium (136-145) mmol/L Potassium (3.5-5.1) mmol/L Chloride (98-107) mmol/L Carbon Dioxide (21.0-32.0) mmol/L Anion Gap (3-11) mmol/L BUN (7-18) mg/dL Creatinine (0.70-1.30) mg/dL Est GFR (CKD-EPI 2020) (mL/min/1.73m2) Glucose (74-106) mg/dL Calcium (8.5-10.1) mg/dL Magnesium (1.8-2.4) mg/dL Total Bilirubin (0.2-1.0) mg/dL AST (15-37) U/L ALT (16-63) U/L Alkaline Phosphatase (46-116) U/L Troponin I (<or=60) ng/L Total Protein (6.4-8.2) g/dL Albumin (3.4-5.0) g/dL Salicylates (<2.8) mg/dL Urine Opiates Screen (Negative) Negative Urine Methadone Screen (Negative) Negative Acetaminophen (10-30) ug/mL Ur Barbiturates Screen (Negative) Negative Ur Tricyclics Screen (Negative) Negative Ur Amphetamines Screen (Negative) Negative U Benzodiazepines Scrn (Negative) Negative Urine Cocaine Screen (Negative) Negative Ur THC Screen (Negative) Negative Ethyl Alcohol (<10) mg/dL < 3.0 Range/Units 03/05/23 18:04 WBC (4.4-10.8) 10^3/uL RBC (4.36-5.78) 10^6/uL Hgb (13.5-17.5) g/dL Hct (40.0-50.0) % MCV (80-95) fL MCH (27.0-33.0) pg MCHC (32.0-36.0) % RDW (11.8-14.1) % Plt Count (130-400) 10^3/uL MPV (8.0-11.0) fL Immature Gran % Neutrophils % Lymphocytes % Monocytes % Eosinophils % Basophils % Nucleated RBC % (0.0-0.3) % Absolute Neutrophils (1.2-6.7) 10^3/uL Absolute Lymphocytes (1.2-3.4) 10^3/uL Absolute Monocytes (0.1-0.8) 10^3/uL Absolute Eosinophils (0.0-0.7) 10^3/uL Absolute Basophils (0.0-0.2) 10^3/uL PT (9.3-11.0) sec INR (0.9-1.1) Sodium (136-145) mmol/L Potassium (3.5-5.1) mmol/L Chloride (98-107) mmol/L Carbon Dioxide (21.0-32.0) mmol/L Anion Gap (3-11) mmol/L BUN (7-18) mg/dL Creatinine (0.70-1.30) mg/dL Est GFR (CKD-EPI 2020) (mL/min/1.73m2) Glucose (74-106) mg/dL Calcium (8.5-10.1) mg/dL Magnesium (1.8-2.4) mg/dL Total Bilirubin (0.2-1.0) mg/dL AST (15-37) U/L ALT (16-63) U/L Alkaline Phosphatase (46-116) U/L Troponin I (<or=60) ng/L Cancelled Total Protein (6.4-8.2) g/dL Albumin (3.4-5.0) g/dL Salicylates (<2.8) mg/dL Urine Opiates Screen (Negative) Urine Methadone Screen (Negative) Acetaminophen (10-30) ug/mL Ur Barbiturates Screen (Negative) Ur Tricyclics Screen (Negative) Ur Amphetamines Screen (Negative) U Benzodiazepines Scrn (Negative) Urine Cocaine Screen (Negative) Ur THC Screen (Negative) Ethyl Alcohol (<10) mg/dL HPI General Mode of arrival: EMS. Date/Time Provider Initiated Documentation: 03/05/23 15:03. Limitations to Documentation: no limitations. Information obtained by: patient, EMS and old records reviewed. HPI Narrative: 62yo M with hx of polychythemia vera, DM, HTN, CVA, afib, schizophrenia, presenting via EMS for slurred speech. History from patient, EMS, and [facility] medical records. Per EMS, last seen normal 90 minutes prior to arrival by a friend. Friend came back and found him with slurred speech, left facial droop. For EMS alert, garbled speech, not following commands to participate in neuro exam; patient was unable to get up at home. Blood glucose for EMS 199. Initial history limited 2/t dysarthria; patient denies recent injury, head strike, or pain anywhere currently including headache Feels weak overall, no area feels focally week. Denies numbness or tingling. No nausea or vomiting. He was in his usual state of health prior to this event with no fevers, chills, rash, chest pain, shortness of breath, abdominal pain, dysuria, hematuria, or other concerns. Related Data Home Medications Medication Instructions Recorded Confirmed melatonin 3 mg tablet,extended 3 mg PO HS PRN 01/23/16 12/19/22 release thyroid ([place]) 90 mg tablet 90 mg PO QAM 01/23/16 12/19/22 ([place] Thyroid) apixaban 5 mg tablet (Eliquis) 5 mg PO BID #180 tabs 07/20/17 12/19/22 sennosides 8.6 mg tablet (senna) 8.6 mg PO BID PRN 1 day 07/28/17 12/19/22 albuterol sulfate 90 mcg/actuation 2 puff inhalation Q4H PRN 03/27/19 12/19/22 aerosol inhaler (Ventolin HFA) ropinirole 1 mg tablet 1 mg PO DIRECTED 03/27/19 12/19/22 docusate sodium 100 mg capsule 200 mg PO BID PRN 11/13/20 12/19/22 furosemide 20 mg tablet 40 mg PO DAILY 08/10/21 12/19/22 metformin 1,000 mg tablet 1,000 mg PO BID 09/15/21 12/19/22 polyethylene glycol 3350 17 17 g PO BID PRN 09/15/21 12/19/22 gram/dose oral powder (Miralax) divalproex 500 mg tablet,extended 2,000 mg PO HS 09/16/21 12/19/22 release 24 hr loratadine 10 mg tablet 10 mg PO DAILY PRN 09/16/21 12/19/22 clozapine 200 mg tablet 400 mg PO HS 11/14/21 12/05/22 lorazepam 0.5 mg tablet 0.5 mg PO .QH PRN 11/14/21 12/19/22 clozapine 100 mg tablet 100 mg PO QHS 03/29/22 12/05/22 magnesium chloride 64 mg 64 mg PO DAILY #30 tabs 03/30/22 12/19/22 (magnesium chloride) tablet metoprolol succinate 25 mg 12.5 mg PO DAILY #30 tabs 03/30/22 12/19/22 tablet,extended release 24 hr triamcinolone acetonide 0.1 % 1 applic topical BID 04/17/22 12/19/22 topical cream potassium chloride 20 mEq 10 meq PO DAILY 06/20/22 12/19/22 tablet,extended release atorvastatin 10 mg tablet (Lipitor) 40 mg PO QPM #0 tabs 06/25/22 12/19/22 Previous Rx's Medication Instructions Recorded apixaban 5 mg tablet (Eliquis) 5 mg PO BID #180 tabs 07/20/17 magnesium chloride 64 mg 64 mg PO DAILY #30 tabs 03/30/22 (magnesium chloride) tablet metoprolol succinate 25 mg 12.5 mg PO DAILY #30 tabs 03/30/22 tablet,extended release 24 hr atorvastatin 10 mg tablet (Lipitor) 40 mg PO QPM #0 tabs 06/25/22 Allergies Allergy/AdvReac Type Severity Reaction Status Date / Time Penicillins AdvReac Intermediate black out Unverified 12/19/22 16:12 gabapentin AdvReac Mild Headache Unverified 12/19/22 16:12 niacin AdvReac Mild turn red Unverified 12/19/22 16:12 General Stated Complaint: CVA/TIA MARY: 2 Review of Systems Narrative: see HPI PFSH All Active Problems (Updated 03/05/23 @ 19:40 by Emi Galicia MD) Overdose (Acute) Polycythemia (Acute) Dehydration (Acute) Hypokalemia (Acute) Hypomagnesemia (Acute) Schizophrenia (Chronic) Weight gain (Acute 10/22/16) Screening for colorectal cancer (Acute) Heel ulcer (Acute) Medication monitoring encounter (Acute) Acute ischemic stroke (Acute) C1 cervical fracture (Acute) Chronic schizophrenia (Chronic) Ambulatory dysfunction (Acute) Alteration in thought content as evidenced by delusions (Acute) BRENNEN (acute kidney injury) (Acute) Medical History Afib Atrial enlargement, bilateral BCC (basal cell carcinoma of skin) Chronic constipation Diabetes mellitus, type 2 Diverticulosis Facial basal cell cancer (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 Father Heart disease Brother Alcohol abuse Social History Smoking/Tobacco Use Status: Current every day Tobacco Type: cigarettes Smoking risk assessment performed?: Yes Alcohol Intake: current Alcohol Intake frequency: holidays/special occasions only Alcohol type: beer and hard liquor Drug use: Current Sobriety Substance use type: does not use Housing: other Current gender identity: male Do you feel safe at home: Yes Do you feel safe in your relationship?: Yes Exam Narrative Exam Narrative: General: Alert, in no acute distress. Stains on shirt. Head: Normocephalic, atraumatic Neck: Trachea midline, Neck supple. ENT: MMM. No oropharygeal lesions or exudate. Cardiac: RRR, no murmurs appreciated Resp: No respiratory distress. CTAB. Abd: Soft, non-distended, nontender : No suprapubic tenderness. Extremities: No deformities. No peripheral edema. Neuro: GCS 15. PERRL. EOMI. Severe dysarthria. EOM intact, no gaze preference or deviation, no nystagmus. Normal sensation in V1, V2, and V3 segments bilaterally. No asymmetry, no nasolabial fold flattening. Normal hearing to speech. Midline tongue protrusion Motor- 4/5 strength symmetric bilateral upper extremites, 2/5 bilateral lower extremities Sensation- Intact multiple dermatomes including upper and lower extremities Coordination- No dysmetria on finger to nose Reflexes- 2/4 achilles & patellar, no clonus Gait/station: Normal stance. No truncal ataxia. Steady gait with equal normal steps Course Vital Signs Vital signs: Vital Signs Temperature 36.1 C L 03/05/23 15:02 Pulse 102 H 03/05/23 15:02 Respiratory Rate 25 H 03/05/23 15:02 Blood Pressure 118/77 03/05/23 15:02 Pulse Oximetry 92 03/05/23 15:02 Temperature 36.1 C L 03/05/23 15:02 Temperature Source Tympanic 03/05/23 15:02 Pulse 81 03/05/23 17:31 Pulse 83 03/05/23 17:31 Respiratory Rate 17 03/05/23 17:31 Respiratory Effort Normal, Non-Labored 03/05/23 15:37 Respiratory Depth Normal 03/05/23 15:37 Respiratory Pattern Normal 03/05/23 15:37 Blood Pressure 144/83 H 03/05/23 17:31 Blood Pressure Mean 102 03/05/23 17:31 Blood Pressure Position Supine 03/05/23 15:02 Pulse Oximetry 97 03/05/23 19:00 Oxygen Delivery Method Room Air 03/05/23 15:02 Oxygen Flow Rate 0 03/05/23 15:02 Lab/Test Results Lab/Test Results: Laboratory Tests Range/Units 03/05/23 03/05/23 03/05/23 15:26 15:26 15:26 WBC (4.4-10.8) 10^3/uL RBC (4.36-5.78) 10^6/uL Hgb (13.5-17.5) g/dL Hct (40.0-50.0) % MCV (80-95) fL MCH (27.0-33.0) pg MCHC (32.0-36.0) % RDW (11.8-14.1) % Plt Count (130-400) 10^3/uL MPV (8.0-11.0) fL Immature Gran % Neutrophils % Lymphocytes % Monocytes % Eosinophils % Basophils % Nucleated RBC % (0.0-0.3) % Absolute Neutrophils (1.2-6.7) 10^3/uL Absolute Lymphocytes (1.2-3.4) 10^3/uL Absolute Monocytes (0.1-0.8) 10^3/uL Absolute Eosinophils (0.0-0.7) 10^3/uL Absolute Basophils (0.0-0.2) 10^3/uL PT (9.3-11.0) sec 9.9 INR (0.9-1.1) 1.0 Sodium (136-145) mmol/L 138 Potassium (3.5-5.1) mmol/L 4.0 Chloride (98-107) mmol/L 101 Carbon Dioxide (21.0-32.0) mmol/L 24.6 Anion Gap (3-11) mmol/L 12.4 H BUN (7-18) mg/dL 12 Creatinine (0.70-1.30) mg/dL 1.0 Est GFR (CKD-EPI 2020) (mL/min/1.73m2) 84.05 Glucose (74-106) mg/dL 178 H Calcium (8.5-10.1) mg/dL 9.7 Magnesium (1.8-2.4) mg/dL 1.8 Total Bilirubin (0.2-1.0) mg/dL 0.5 AST (15-37) U/L 17 ALT (16-63) U/L 23 Alkaline Phosphatase (46-116) U/L 103 Troponin I (<or=60) ng/L < 50 Total Protein (6.4-8.2) g/dL 7.7 Albumin (3.4-5.0) g/dL 3.8 Salicylates (<2.8) mg/dL 3.2 Urine Opiates Screen (Negative) Urine Methadone Screen (Negative) Acetaminophen (10-30) ug/mL < 2 Ur Barbiturates Screen (Negative) Ur Tricyclics Screen (Negative) Ur Amphetamines Screen (Negative) U Benzodiazepines Scrn (Negative) Urine Cocaine Screen (Negative) Ur THC Screen (Negative) Ethyl Alcohol (<10) mg/dL Range/Units 03/05/23 03/05/23 03/05/23 15:26 15:26 17:41 WBC (4.4-10.8) 10^3/uL 8.97 RBC (4.36-5.78) 10^6/uL 5.52 Hgb (13.5-17.5) g/dL 17.5 Hct (40.0-50.0) % 50.6 H MCV (80-95) fL 92 MCH (27.0-33.0) pg 31.7 MCHC (32.0-36.0) % 34.6 RDW (11.8-14.1) % 13.2 Plt Count (130-400) 10^3/uL 252 MPV (8.0-11.0) fL 10.6 Immature Gran % 0.4 Neutrophils % 57.1 Lymphocytes % 32.4 Monocytes % 8.4 Eosinophils % 1.3 Basophils % 0.4 Nucleated RBC % (0.0-0.3) % 0.0 Absolute Neutrophils (1.2-6.7) 10^3/uL 5.11 Absolute Lymphocytes (1.2-3.4) 10^3/uL 2.91 Absolute Monocytes (0.1-0.8) 10^3/uL 0.75 Absolute Eosinophils (0.0-0.7) 10^3/uL 0.12 Absolute Basophils (0.0-0.2) 10^3/uL 0.04 PT (9.3-11.0) sec INR (0.9-1.1) Sodium (136-145) mmol/L Potassium (3.5-5.1) mmol/L Chloride (98-107) mmol/L Carbon Dioxide (21.0-32.0) mmol/L Anion Gap (3-11) mmol/L BUN (7-18) mg/dL Creatinine (0.70-1.30) mg/dL Est GFR (CKD-EPI 2020) (mL/min/1.73m2) Glucose (74-106) mg/dL Calcium (8.5-10.1) mg/dL Magnesium (1.8-2.4) mg/dL Total Bilirubin (0.2-1.0) mg/dL AST (15-37) U/L ALT (16-63) U/L Alkaline Phosphatase (46-116) U/L Troponin I (<or=60) ng/L Total Protein (6.4-8.2) g/dL Albumin (3.4-5.0) g/dL Salicylates (<2.8) mg/dL Urine Opiates Screen (Negative) Negative Urine Methadone Screen (Negative) Negative Acetaminophen (10-30) ug/mL Ur Barbiturates Screen (Negative) Negative Ur Tricyclics Screen (Negative) Negative Ur Amphetamines Screen (Negative) Negative U Benzodiazepines Scrn (Negative) Negative Urine Cocaine Screen (Negative) Negative Ur THC Screen (Negative) Negative Ethyl Alcohol (<10) mg/dL < 3.0 Range/Units 03/05/23 18:04 WBC (4.4-10.8) 10^3/uL RBC (4.36-5.78) 10^6/uL Hgb (13.5-17.5) g/dL Hct (40.0-50.0) % MCV (80-95) fL MCH (27.0-33.0) pg MCHC (32.0-36.0) % RDW (11.8-14.1) % Plt Count (130-400) 10^3/uL MPV (8.0-11.0) fL Immature Gran % Neutrophils % Lymphocytes % Monocytes % Eosinophils % Basophils % Nucleated RBC % (0.0-0.3) % Absolute Neutrophils (1.2-6.7) 10^3/uL Absolute Lymphocytes (1.2-3.4) 10^3/uL Absolute Monocytes (0.1-0.8) 10^3/uL Absolute Eosinophils (0.0-0.7) 10^3/uL Absolute Basophils (0.0-0.2) 10^3/uL PT (9.3-11.0) sec INR (0.9-1.1) Sodium (136-145) mmol/L Potassium (3.5-5.1) mmol/L Chloride (98-107) mmol/L Carbon Dioxide (21.0-32.0) mmol/L Anion Gap (3-11) mmol/L BUN (7-18) mg/dL Creatinine (0.70-1.30) mg/dL Est GFR (CKD-EPI 2020) (mL/min/1.73m2) Glucose (74-106) mg/dL Calcium (8.5-10.1) mg/dL Magnesium (1.8-2.4) mg/dL Total Bilirubin (0.2-1.0) mg/dL AST (15-37) U/L ALT (16-63) U/L Alkaline Phosphatase (46-116) U/L Troponin I (<or=60) ng/L Cancelled Total Protein (6.4-8.2) g/dL Albumin (3.4-5.0) g/dL Salicylates (<2.8) mg/dL Urine Opiates Screen (Negative) Urine Methadone Screen (Negative) Acetaminophen (10-30) ug/mL Ur Barbiturates Screen (Negative) Ur Tricyclics Screen (Negative) Ur Amphetamines Screen (Negative) U Benzodiazepines Scrn (Negative) Urine Cocaine Screen (Negative) Ur THC Screen (Negative) Ethyl Alcohol (<10) mg/dL
== END 2023-03-05 19:43 | disposition home or self-care (01) ==
PROVIDERS: Emergency Provider Student in an Organized Health Care Education/Training Program; PCP Family Medicine
DX: R29.810 Facial weakness (principal); R47.1 Dysarthria and anarthria; I11.9 Hypertensive heart disease without heart failure; E11.9 Type 2 diabetes mellitus without complications; I48.91 Unspecified atrial fibrillation; T42.71XA Poisoning by unspecified antiepileptic and sedative-hypnotic drugs, accidental (unintentional), initial encounter; Z86.73 Personal history of transient ischemic attack (TIA), and cerebral infarction without residual deficits
CPT/HCPCS: 36415; 70496; 70498; 80053; 80307; 82962; 93005; 99285; 70450; 71045; 80320; 80329; 83735; 84484; 85025; 85610; 93010; J3490

== ENCOUNTER 2023-03-06 10:26 | Outpatient (CLI) | payer MEDICARE, MEDICAID, SELFPAY ==
[2023-03-06 11:03] LABS: Abs Immature Grans 0.04 10^3/uL (0.0-0.06); Absolute Eosinophil Count 0.09 10^3/uL (0.0-0.7); Absolute Lymphocyte Count 2.64 10^3/uL (1.2-3.4); Absolute Neutrophil Count 7.48 10^3/uL (1.2-6.7); Basophils % 0.4; Eosinophils % 0.8; HCT 50.5 % (40.0-50.0); HGB 17.2 g/dL (13.5-17.5); Immature Grans % 0.4; Lymphocytes % 23.6; MCH 32.1 pg (27.0-33.0); MCHC 34.1 % (32.0-36.0); MCV 94 fL (80-95); MPV 11.1 fL (8.0-11.0); Neutrophils % 66.8; Platelet Count 245 10^3/uL (130-400); RBC 5.36 10^6/uL (4.36-5.78); RDW 13.7 % (11.8-14.1); RDW-SD 47.4 fL
[2023-03-06 11:04] LABS: Absolute Basophil Count 0.04 10^3/uL (0.0-0.2)
== END 2023-03-06 10:27 | disposition home or self-care (01) ==
LOC: LBO 10:26
PROVIDERS: PCP Family Medicine; Visit Provider Counselor Addiction (Substance Use Disorder)
DX: F20.9 Schizophrenia, unspecified (principal); Z79.899 Other long term (current) drug therapy
CPT/HCPCS: 36415; 85025

== ENCOUNTER 2023-03-10 17:05 | Emergency (ER) | payer MEDICARE, MEDICAID, SELFPAY ==
--- NOTE | 2023-03-10 17:00 | DI.CT_ITS ---
Exam(s) CT HEAD CERVICAL SPINE WO EXAM: CT HEAD CERVICAL SPINE WO CLINICAL HISTORY: fall, on AC, altered mental status. TECHNIQUE: Imaging Protocol: Axial computed tomography images with coronal and sagittal reformatted images were created and reviewed COMPARISON: CT CT BRAIN NECK CTA from 03/05/2023 FINDINGS: BRAIN: There are no skull fractures nor fluid in the visualized paranasal sinuses. There is no evidence of intracranial hemorrhage, mass effect, or shift of midline structures. There are no extra-axial fluid collections. The ventricles are not enlarged or shifted and there is no blo od within the ventricular system nor within the basal cisterns. CERVICAL SPINE: Motion artifact. There is no evidence of obvious fracture . No significant prevertebral soft tissue swelling. Chronic disc space narrowing at C5-6 and C6-7 levels. Mild degenerative anterolisthesis of C4 upon C 5 related to facet arthropathy. There is no significant facet joint malalignment. No significant osseous lesions evident. IMPRESSION: No acute intracranial findings on this noninfused CT scan of the brain. No evidence of acute cervical spine fracture, malalignment, nor acute compromise of the cervical spin al canal. RADIATION DOSE DELIVERED: 2,000.68mGy.cm Total DLP DATA REPOSITORY: All CT scans at this facility are submitted to the National Radiology Data Registry (NRDR) Dose Index Registry (DIR) with the [employer] ([employer]). RADIATION OPTIMIZATION: All CT scans at this facility use at least one of these dose optimization te chniques: automated exposure control; mA and/or kV adjustment per patient size (includes targeted exa ms where dose is matched to clinical indication); or iterative reconstruction.
[2023-03-10 17:06] VITALS: BP 117/71; PULSE 94; RESP 18; TEMP 36.9; O2SAT 93
[2023-03-10 17:14] VITALS: O2SAT 91
[2023-03-10 17:15] VITALS: BP 117/71; PULSE 89; O2SAT 92
[2023-03-10 17:16] VITALS: BP 131/63; PULSE 87; O2SAT 92
--- NOTE | 2023-03-10 17:56 | ED.GENADUL_ITS ---
Discharge Plan Disposition Patient Disposition: Home Condition: Good Discharge Details Clinical Impression: Fall Primary Care Provider: Nisha Carrillo ED Provider: Emi Galicia Home Meds and New Rx's Prescriptions: No Action Eliquis 5 MG tablet 5 mg PO BID Qty: 180 12RF sennosides [senna] 8.6 MG tablet 8.6 mg PO BID PRN1 Days Rx Instructions: prn divalproex 500 mg tablet extended release 24 hr 2,000 mg PO HS Rx Instructions: takes at 1600 loratadine 10 mg tablet 10 mg PO DAILY PRN clozapine 200 mg tablet 400 mg PO HS Hold Instructions: titrate back up per outpatient Patient Comments: pt states not taking stopped 9 days ago Rx Instructions: With 100 mg tab for total of 500 mg po qhs lorazepam 0.5 mg tablet 0.5 mg PO .QH PRN triamcinolone acetonide 0.1 % cream 1 applic topical BID Conger Thyroid 90 MG tablet 90 mg PO QAM melatonin 3 MG tablet extended release 3 mg PO HS PRN ropinirole 1 mg Tablet 1 mg PO DIRECTED Rx Instructions: DAILY at 1600 albuterol sulfate [Ventolin HFA] 90 mcg/actuation Hfa Aerosol Inhaler 2 puff INHALATION Q4H PRN polyethylene glycol 3350 [Miralax] 17 gram/dose powder 17 g PO BID PRN Patient Comments: 17 gram by mouth once a day as needed metformin 1,000 mg tablet 1,000 mg PO BID potassium chloride 20 mEq tablet extended release 10 meq PO DAILY atorvastatin [Lipitor] 10 MG tablet 40 mg PO QPM Qty: 0 0RF docusate sodium 100 mg capsule 200 mg PO BID PRN furosemide 20 mg tablet 40 mg PO DAILY clozapine 100 mg tablet 100 mg PO QHS Patient Comments: Pt states not taking stopped 9 days ago Rx Instructions: Take in combination with two 200 mg tabs for total dose of 500 mg po qhs metoprolol succinate 25 mg Tablet Extended Release 24 Hr 12.5 mg PO DAILY Qty: 30 0RF magnesium chloride 64 mg magnesium tablet 64 mg PO DAILY Qty: 30 0RF Discharge Instructions Instructions: Fall Prevention (ED) Additional Instructions: Return to the emergency department for new or worsening symptoms, including headache, nasuea, vomiting, or if you have any other concerns. Medical Decision Making 62yo M on eliquis presenting via EMS after a mechanical fall from up 2 steps. +HS, no LOC, is on eliquis. Vital signs reassuring, on exam he has a small abrasion to his right brow and echymosis on bilateral knees, otherwise no significant traumatic findings. Normal neurologic exam. Given that he is on eliquis, will get head CT to eval for intracranial hemmorahge. CT independently reviewed; no bleed on my view, agree with radiology read below. On reassessment he remains well appearing with reassuring vital signs and is able to ambulate steadily. Discharged home; discharge instructions including return precautions were reviewed with patient who verbalized understanding. All questions were answered and they are in full agreement with the plan. Imaging Data Radiologic Study: Imaging: CT Scan Radiologist's impression: IMPRESSION: No acute intracranial abnormality. HPI General Mode of arrival: EMS . Date/Time Provider Initiated Documentation: 03/10/23 17:10 . Limitations to Documentation: no limitations . Information obtained by: patient and EMS . HPI Narrative: 62yo M on eliquis presenting via EMS after a fall. Reports that he was stepping down outside apartment steps, on the 2nd from the bottom tripped and fell forward, landed on his knees, and then struck his head. Did not lose consciousness. Was able to stand up and ambulate immediately afterwards. Reports left knee pain, otherwise denies pain. Feels well currently; denies headache, nausea, vomiting, numbness, tingling, weakness, vertigo, or other concerns. He was in his usual state of health prior to this event. Related Data Home Medications Medication Instructions Recorded Confirmed melatonin 3 mg tablet,extended 3 mg PO HS PRN 01/23/16 12/19/22 release thyroid (pork) 90 mg tablet 90 mg PO QAM 01/23/16 12/19/22 (Conger Thyroid) apixaban 5 mg tablet (Eliquis) 5 mg PO BID #180 tabs 07/20/17 12/19/22 sennosides 8.6 mg tablet (senna) 8.6 mg PO BID PRN 1 day 07/28/17 12/19/22 albuterol sulfate 90 mcg/actuation 2 puff inhalation Q4H PRN 03/27/19 12/19/22 aerosol inhaler (Ventolin HFA) ropinirole 1 mg tablet 1 mg PO DIRECTED 03/27/19 12/19/22 docusate sodium 100 mg capsule 200 mg PO BID PRN 11/13/20 12/19/22 furosemide 20 mg tablet 40 mg PO DAILY 08/10/21 12/19/22 metformin 1,000 mg tablet 1,000 mg PO BID 09/15/21 12/19/22 polyethylene glycol 3350 17 17 g PO BID PRN 09/15/21 12/19/22 gram/dose oral powder (Miralax) divalproex 500 mg tablet,extended 2,000 mg PO HS 09/16/21 12/19/22 release 24 hr loratadine 10 mg tablet 10 mg PO DAILY PRN 09/16/21 12/19/22 clozapine 200 mg tablet 400 mg PO HS 11/14/21 12/05/22 lorazepam 0.5 mg tablet 0.5 mg PO .QH PRN 11/14/21 12/19/22 clozapine 100 mg tablet 100 mg PO QHS 03/29/22 12/05/22 magnesium chloride 64 mg 64 mg PO DAILY #30 tabs 03/30/22 12/19/22 (magnesium chloride) tablet metoprolol succinate 25 mg 12.5 mg PO DAILY #30 tabs 03/30/22 12/19/22 tablet,extended release 24 hr triamcinolone acetonide 0.1 % 1 applic topical BID 04/17/22 12/19/22 topical cream potassium chloride 20 mEq 10 meq PO DAILY 06/20/22 12/19/22 tablet,extended release atorvastatin 10 mg tablet (Lipitor) 40 mg PO QPM #0 tabs 06/25/22 12/19/22 Previous Rx's Medication Instructions Recorded apixaban 5 mg tablet (Eliquis) 5 mg PO BID #180 tabs 07/20/17 magnesium chloride 64 mg 64 mg PO DAILY #30 tabs 03/30/22 (magnesium chloride) tablet metoprolol succinate 25 mg 12.5 mg PO DAILY #30 tabs 03/30/22 tablet,extended release 24 hr atorvastatin 10 mg tablet (Lipitor) 40 mg PO QPM #0 tabs 06/25/22 Allergies Allergy/AdvReac Type Severity Reaction Status Date / Time Penicillins AdvReac Intermediate black out Unverified 12/19/22 16:12 gabapentin AdvReac Mild Headache Unverified 12/19/22 16:12 niacin AdvReac Mild turn red Unverified 12/19/22 16:12 General Stated Complaint: Fall/Non TraumaCriteria MARY: 3 Review of Systems Narrative: see HPI PFSH All Active Problems (Updated 03/10/23 @ 20:21 by Emi Galicia MD) Overdose (Acute) Fall (Acute) Polycythemia (Acute) Dehydration (Acute) Hypokalemia (Acute) Hypomagnesemia (Acute) Schizophrenia (Chronic) Weight gain (Acute 10/22/16) Screening for colorectal cancer (Acute) Heel ulcer (Acute) Medication monitoring encounter (Acute) Acute ischemic stroke (Acute) C1 cervical fracture (Acute) Chronic schizophrenia (Chronic) Ambulatory dysfunction (Acute) Alteration in thought content as evidenced by delusions (Acute) BRENNEN (acute kidney injury) (Acute) Medical History Afib Atrial enlargement, bilateral BCC (basal cell carcinoma of skin) Chronic constipation Diabetes mellitus, type 2 Diverticulosis Facial basal cell cancer (02/04/16) HTN (hypertension) (02/04/16) Hypothyroidism Non-ST elevation IA (NSTEMI) OAB (overactive bladder) Obesity RLS (restless legs syndrome) 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 Father Heart disease Brother Alcohol abuse Social History Smoking/Tobacco Use Status: Current every day Tobacco Type: cigarettes Smoking risk assessment performed?: Yes Alcohol Intake: current Alcohol Intake frequency: holidays/special occasions only Alcohol type: beer and hard liquor Drug use: Current Sobriety Substance use type: does not use Housing: other Current gender identity: male Do you feel safe at home: Yes Do you feel safe in your relationship?: Yes Exam Narrative Exam Narrative: GENERAL: Alert, in no acute distress. SKIN: Warm and well perfused. HEAD: Abrasion above right eyebrow. Facial bones without deformities or tenderness. EYES: PERRL. No scleral icterus or conjunctival injection. Extraocular muscles intact without nystagmus or diplopia. NOSE: No discharge, tenderness, laxity. No nasal septal hematoma. MOUTH: No malocclusion or trismus. Moist mucus membranes without blood. NECK: Trachea midline. No discolorations or edema. CV: Normal s1 and s2. No murmurs, rubs, or gallops. PV: Radial pulses 2+ bilaterally and symmetric. Dorsalis pedis pulses 2+ bilaterally and symmetric. 2+ capillary refill. No extremity edema. CHEST: No abrasions or ecchymosis. Chest symmetric with respirations. No chest wall tenderness. Lungs are clear to auscultation bilaterally. ABDOMEN: No ecchymosis or abrasions. Soft, nondistended, nontender. BACK: No abrasions, skin openings, or ecchymosis. Spine without bony tenderness, no step offs. PELVIC: Pelvis stable, nontender to lateral compression MSK: Echymosis to bilateral knees with no swelling and no pain with ROM. Otherwise no gross deformities or discolorations or lesions. Tolerates full range of motion of extremities without tenderness. Neuro: GCS 15. PERRL. EOMI. Fluent speech, no dysarthria. Normal sensation in V1, V2, and V3 segments bilaterally. No asymmetry, no nasolabial fold flattening Motor- 5/5 strength symmetric bilateral upper and lower extremities Sensation- Intact to light touch and symmetric multiple dermatomes including upper and lower extremities Coordination- No dysmetria on finger to nose Gait/station: Normal stance. No truncal ataxia. Steady gait with equal normal steps Course Vital Signs Vital signs: Vital Signs Temperature 36.9 C 03/10/23 17:06 Pulse 94 H 03/10/23 17:06 Respiratory Rate 18 03/10/23 17:06 Blood Pressure 117/71 03/10/23 17:06 Pulse Oximetry 93 03/10/23 17:06 Temperature 36.9 C 03/10/23 17:06 Temperature Source Temporal Artery Scan 03/10/23 17:06 Pulse 87 03/10/23 17:16 Respiratory Rate 18 03/10/23 17:06 Respiratory Effort Normal 03/10/23 17:14 Blood Pressure 131/63 03/10/23 17:16 Blood Pressure Mean 79 03/10/23 17:16 Pulse Oximetry 92 03/10/23 17:16 Oxygen Delivery Method Room Air 03/10/23 17:06 Oxygen Flow Rate 0 03/10/23 17:06
--- NOTE | 2023-03-10 19:00 | DI.VRAD_ITS ---
PROCEDURE INFORMATION: Exam: CT Head Without Contrast Exam date and time: 03/10/2023 6:44 PM Age: 62 years old Clinical indication: Injury or trauma; Blunt trauma (contusions or hematomas); Consciousness not specified; Injury date: 03/10/23; Injury details: Fall, on ac, altered mental status TECHNIQUE: Imaging protocol: Computed tomography of the head without contrast. Radiation optimization: All CT scans at this facility use at least one of these dose optimization techniques: automated exposure control; mA and/or kV adjustment per patient size (includes targeted exams where dose is matched to clinical indication); or iterative reconstruction. COMPARISON: CT HEAD - STROKE PROTOCOL 03/05/2023 3:15 PM FINDINGS: Brain: Mild volume loss No hemorrhage. Mild white matter disease. No mass effect. Cerebral ventricles: No ventriculomegaly. Paranasal sinuses: Visualized sinuses are unremarkable. No fluid levels. Mastoid air cells: Visualized mastoid air cells are well aerated. Bones/joints: Unremarkable. No acute fracture. Soft tissues: Unremarkable. IMPRESSION: No acute intracranial abnormality. PROCEDURE INFORMATION: Exam: CT Cervical Spine Without Contrast Exam date and time: 03/10/2023 6:44 PM Age: 62 years old Clinical indication: Injury or trauma; Blunt trauma (contusions or hematomas); Consciousness not specified; Injury date: 03/10/23; Injury details: Fall, on ac, altered mental status TECHNIQUE: Imaging protocol: Computed tomography of the cervical spine without contrast. Radiation optimization: All CT scans at this facility use at least one of these dose optimization techniques: automated exposure control; mA and/or kV adjustment per patient size (includes targeted exams where dose is matched to clinical indication); or iterative reconstruction. COMPARISON: CT HEAD CERVICAL SPINE WO 06/22/2022 10:30 AM FINDINGS: Limited secondary to motion artifact. Bones/joints: No acute fracture. Loss of cervical lordosis is presumably on a degenerative basis.No significant disc bulge or herniation. No severe spinal canal stenosis. No significant neural foraminal narrowing. Lungs: Lung apices are normal. Soft tissues: Unremarkable. IMPRESSION: No acute findings. Dictated and Authenticated by: Nuno Pollack MD. Ordering:HARLEEN Middleton MD
== END 2023-03-10 20:51 | disposition home or self-care (01) ==
PROVIDERS: Emergency Provider Student in an Organized Health Care Education/Training Program; PCP Family Medicine
DX: M25.562 Pain in left knee (principal); W10.9XXA Fall (on) (from) unspecified stairs and steps, initial encounter
CPT/HCPCS: 99284; 70450; 72125; 99283

== ENCOUNTER 2023-03-13 11:14 | Outpatient (CLI) | payer MEDICARE, MEDICAID, SELFPAY ==
[2023-03-13 11:19] LABS: Abs Immature Grans 0.05 10^3/uL (0.0-0.06); Absolute Basophil Count 0.05 10^3/uL (0.0-0.2); Absolute Monocyte Count 0.99 10^3/uL (0.1-0.8); Absolute Neutrophil Count 7.89 10^3/uL (1.2-6.7); Basophils % 0.4; Eosinophils % 0.7; HCT 47.5 % (40.0-50.0); HGB 16.1 g/dL (13.5-17.5); Immature Grans % 0.4; Lymphocytes % 24.9; MCH 31.4 pg (27.0-33.0); MCHC 33.9 % (32.0-36.0); MCV 93 fL (80-95); MPV 10.5 fL (8.0-11.0); Monocytes % 8.2; Neutrophils % 65.4; Platelet Count 237 10^3/uL (130-400); RBC 5.13 10^6/uL (4.36-5.78); RDW 13.3 % (11.8-14.1); RDW-SD 45.6 fL; WBC 12.07 10^3/uL (4.4-10.8)
[2023-03-13 11:23] LABS: Absolute Eosinophil Count 0.08 10^3/uL (0.0-0.7); Absolute Lymphocyte Count 3.01 10^3/uL (1.2-3.4)
== END 2023-03-13 11:15 | disposition home or self-care (01) ==
LOC: LBO 11:14
PROVIDERS: PCP Family Medicine; Visit Provider Counselor Addiction (Substance Use Disorder)
DX: F20.9 Schizophrenia, unspecified (principal); Z79.899 Other long term (current) drug therapy
CPT/HCPCS: 36415; 85025

== ENCOUNTER 2023-03-20 19:03 | Outpatient (CLI) | payer MEDICARE, MEDICAID, SELFPAY ==
[2023-03-20 10:50] LABS: Abs Immature Grans 0.07 10^3/uL (0.0-0.06); Absolute Basophil Count 0.05 10^3/uL (0.0-0.2); Absolute Eosinophil Count 0.22 10^3/uL (0.0-0.7); Absolute Lymphocyte Count 3.12 10^3/uL (1.2-3.4); Absolute Neutrophil Count 5.15 10^3/uL (1.2-6.7); Basophils % 0.5; Eosinophils % 2.4; HCT 51.2 % (40.0-50.0); HGB 17.6 g/dL (13.5-17.5); Immature Grans % 0.8; Lymphocytes % 33.5; MCH 31.2 pg (27.0-33.0); MCHC 34.4 % (32.0-36.0); MCV 91 fL (80-95); MPV 10.1 fL (8.0-11.0); Monocytes % 7.5; Neutrophils % 55.3; Platelet Count 354 10^3/uL (130-400); RBC 5.65 10^6/uL (4.36-5.78); RDW 12.6 % (11.8-14.1); RDW-SD 41.7 fL; WBC 9.31 10^3/uL (4.4-10.8)
== END 2023-03-20 19:04 | disposition home or self-care (01) ==
LOC: LBO 19:04
PROVIDERS: PCP Family Medicine; Visit Provider Counselor Addiction (Substance Use Disorder)
DX: Z79.899 Other long term (current) drug therapy (principal)
CPT/HCPCS: 36415; 85025

== ENCOUNTER 2023-03-27 10:38 | Outpatient (CLI) | payer MEDICARE, MEDICAID, SELFPAY ==
[2023-03-27 10:18] LABS: Abs Immature Grans 0.07 10^3/uL (0.0-0.06); Absolute Basophil Count 0.05 10^3/uL (0.0-0.2); Absolute Eosinophil Count 0.19 10^3/uL (0.0-0.7); Absolute Lymphocyte Count 2.85 10^3/uL (1.2-3.4); Absolute Monocyte Count 0.59 10^3/uL (0.1-0.8); Absolute Neutrophil Count 4.61 10^3/uL (1.2-6.7); Basophils % 0.6; Eosinophils % 2.3; HCT 50.8 % (40.0-50.0); HGB 17.3 g/dL (13.5-17.5); Immature Grans % 0.8; Lymphocytes % 34.1; MCH 31.5 pg (27.0-33.0); MCHC 34.1 % (32.0-36.0); MCV 92 fL (80-95); MPV 10.5 fL (8.0-11.0); Monocytes % 7.1; Neutrophils % 55.1; Platelet Count 331 10^3/uL (130-400); RDW 12.3 % (11.8-14.1); RDW-SD 41.9 fL; WBC 8.36 10^3/uL (4.4-10.8)
== END 2023-03-27 10:39 | disposition home or self-care (01) ==
LOC: LBO 10:38
PROVIDERS: PCP Family Medicine; Visit Provider Counselor Addiction (Substance Use Disorder)
DX: Z79.899 Other long term (current) drug therapy (principal)
CPT/HCPCS: 36415; 85025

== ENCOUNTER 2023-04-03 11:29 | Outpatient (CLI) | payer MEDICARE, MEDICAID, SELFPAY ==
[2023-04-03 11:12] LABS: Abs Immature Grans 0.07 10^3/uL (0.0-0.06); Absolute Basophil Count 0.05 10^3/uL (0.0-0.2); Absolute Eosinophil Count 0.22 10^3/uL (0.0-0.7); Absolute Lymphocyte Count 2.58 10^3/uL (1.2-3.4); Absolute Monocyte Count 0.62 10^3/uL (0.1-0.8); Absolute Neutrophil Count 5.27 10^3/uL (1.2-6.7); Basophils % 0.6; Eosinophils % 2.5; HCT 49.1 % (40.0-50.0); HGB 16.6 g/dL (13.5-17.5); Immature Grans % 0.8; Lymphocytes % 29.3; MCH 30.7 pg (27.0-33.0); MCHC 33.8 % (32.0-36.0); MCV 91 fL (80-95); Neutrophils % 59.8; Platelet Count 287 10^3/uL (130-400); RBC 5.41 10^6/uL (4.36-5.78); RDW 12.5 % (11.8-14.1); RDW-SD 41.5 fL; WBC 8.81 10^3/uL (4.4-10.8)
== END 2023-04-03 11:30 | disposition home or self-care (01) ==
LOC: LBO 11:29
PROVIDERS: PCP Family Medicine; Visit Provider Counselor Addiction (Substance Use Disorder)
DX: Z79.899 Other long term (current) drug therapy (principal); F20.9 Schizophrenia, unspecified
CPT/HCPCS: 36415; 85025

== ENCOUNTER 2023-04-10 01:51 | Outpatient (CLI) | payer MEDICARE, MEDICAID, SELFPAY ==
[2023-04-10 10:48] LABS: Abs Immature Grans 0.08 10^3/uL (0.0-0.06); Absolute Basophil Count 0.07 10^3/uL (0.0-0.2); Absolute Eosinophil Count 0.19 10^3/uL (0.0-0.7); Absolute Lymphocyte Count 2.79 10^3/uL (1.2-3.4); Absolute Monocyte Count 0.66 10^3/uL (0.1-0.8); Absolute Neutrophil Count 6.46 10^3/uL (1.2-6.7); Basophils % 0.7; Eosinophils % 1.9; HCT 47.6 % (40.0-50.0); HGB 16.8 g/dL (13.5-17.5); Immature Grans % 0.8; Lymphocytes % 27.2; MCH 32.1 pg (27.0-33.0); MCHC 35.3 % (32.0-36.0); MCV 91 fL (80-95); MPV 10.6 fL (8.0-11.0); Monocytes % 6.4; Platelet Count 244 10^3/uL (130-400); RBC 5.23 10^6/uL (4.36-5.78); RDW 12.5 % (11.8-14.1); RDW-SD 41.6 fL; WBC 10.25 10^3/uL (4.4-10.8)
== END 2023-04-10 01:52 | disposition home or self-care (01) ==
LOC: LBO 01:51
PROVIDERS: PCP Family Medicine; Visit Provider Counselor Addiction (Substance Use Disorder)
DX: F20.9 Schizophrenia, unspecified; Z79.899 Other long term (current) drug therapy
CPT/HCPCS: 36415; 83036; 85025

== ENCOUNTER 2023-04-15 12:01 | Outpatient (CLI) | payer MEDICARE, MEDICAID, SELFPAY ==
[2023-04-15 11:07] LABS: Abs Immature Grans 0.11 10^3/uL (0.0-0.06); Absolute Basophil Count 0.06 10^3/uL (0.0-0.2); Absolute Eosinophil Count 0.21 10^3/uL (0.0-0.7); Absolute Lymphocyte Count 2.65 10^3/uL (1.2-3.4); Absolute Monocyte Count 0.68 10^3/uL (0.1-0.8); Absolute Neutrophil Count 5.46 10^3/uL (1.2-6.7); Basophils % 0.7; Eosinophils % 2.3; HCT 47.7 % (40.0-50.0); HGB 16.4 g/dL (13.5-17.5); Immature Grans % 1.2; Lymphocytes % 28.9; MCH 31.2 pg (27.0-33.0); MCHC 34.4 % (32.0-36.0); MCV 91 fL (80-95); Monocytes % 7.4; Neutrophils % 59.5; Platelet Count 257 10^3/uL (130-400); RBC 5.25 10^6/uL (4.36-5.78); RDW 12.4 % (11.8-14.1); RDW-SD 41.1 fL; WBC 9.17 10^3/uL (4.4-10.8)
== END 2023-04-15 12:02 | disposition home or self-care (01) ==
LOC: LBO 12:01
PROVIDERS: PCP Family Medicine; Visit Provider Counselor Addiction (Substance Use Disorder)
DX: F20.9 Schizophrenia, unspecified (principal)
CPT/HCPCS: 36415; 85025

== ENCOUNTER 2023-04-22 03:04 | Outpatient (CLI) | payer MEDICARE, MEDICAID, SELFPAY ==
[2023-04-22 11:19] LABS: Abs Immature Grans 0.07 10^3/uL (0.0-0.06); Absolute Basophil Count 0.06 10^3/uL (0.0-0.2); Absolute Eosinophil Count 0.22 10^3/uL (0.0-0.7); Absolute Lymphocyte Count 3.06 10^3/uL (1.2-3.4); Absolute Monocyte Count 0.68 10^3/uL (0.1-0.8); Absolute Neutrophil Count 5.52 10^3/uL (1.2-6.7); Basophils % 0.6; Eosinophils % 2.3; HCT 49.7 % (40.0-50.0); HGB 17.3 g/dL (13.5-17.5); Immature Grans % 0.7; Lymphocytes % 31.8; MCH 31.1 pg (27.0-33.0); MCHC 34.8 % (32.0-36.0); MCV 89 fL (80-95); MPV 10.2 fL (8.0-11.0); Monocytes % 7.1; Neutrophils % 57.5; Platelet Count 251 10^3/uL (130-400); RBC 5.56 10^6/uL (4.36-5.78); RDW 12.5 % (11.8-14.1); RDW-SD 41.2 fL; WBC 9.61 10^3/uL (4.4-10.8)
[2023-04-22 11:33] LABS: Hemoglobin A1C 7.3 % (<5.7)
== END 2023-04-22 03:05 | disposition home or self-care (01) ==
LOC: LBO 03:04
PROVIDERS: PCP Family Medicine; Visit Provider Counselor Addiction (Substance Use Disorder)
DX: Z79.899 Other long term (current) drug therapy (principal); F20.9 Schizophrenia, unspecified
CPT/HCPCS: 36415; 83036; 85025

== ENCOUNTER 2023-04-29 03:59 | Outpatient (CLI) | payer MEDICARE, MEDICAID, SELFPAY ==
[2023-04-29 11:14] LABS: Abs Immature Grans 0.07 10^3/uL (0.0-0.06); Absolute Basophil Count 0.06 10^3/uL (0.0-0.2); Absolute Eosinophil Count 0.23 10^3/uL (0.0-0.7); Absolute Lymphocyte Count 2.45 10^3/uL (1.2-3.4); Absolute Monocyte Count 0.61 10^3/uL (0.1-0.8); Absolute Neutrophil Count 5.25 10^3/uL (1.2-6.7); Basophils % 0.7; Eosinophils % 2.7; HCT 47.6 % (40.0-50.0); HGB 16.5 g/dL (13.5-17.5); Immature Grans % 0.8; Lymphocytes % 28.3; MCH 31.3 pg (27.0-33.0); MCHC 34.7 % (32.0-36.0); MCV 90 fL (80-95); MPV 10.3 fL (8.0-11.0); Neutrophils % 60.5; Platelet Count 265 10^3/uL (130-400); RBC 5.27 10^6/uL (4.36-5.78); RDW 12.1 % (11.8-14.1); RDW-SD 39.8 fL; WBC 8.67 10^3/uL (4.4-10.8)
== END 2023-04-29 04:00 | disposition home or self-care (01) ==
LOC: LBO 03:59
PROVIDERS: PCP Family Medicine; Visit Provider Counselor Addiction (Substance Use Disorder)
DX: F20.9 Schizophrenia, unspecified (principal); Z79.899 Other long term (current) drug therapy
CPT/HCPCS: 36415; 81003; 99213; 85025

== ENCOUNTER 2023-05-06 03:11 | Outpatient (CLI) | payer MEDICARE, MEDICAID, SELFPAY ==
[2023-05-06 12:04] LABS: Abs Immature Grans 0.07 10^3/uL (0.0-0.06); Absolute Basophil Count 0.07 10^3/uL (0.0-0.2); Absolute Eosinophil Count 0.11 10^3/uL (0.0-0.7); Absolute Lymphocyte Count 2.21 10^3/uL (1.2-3.4); Absolute Monocyte Count 1.26 10^3/uL (0.1-0.8); Absolute Neutrophil Count 6.49 10^3/uL (1.2-6.7); Basophils % 0.7; Eosinophils % 1.1; HCT 49.2 % (40.0-50.0); HGB 17.3 g/dL (13.5-17.5); Immature Grans % 0.7; Lymphocytes % 21.6; MCH 31.1 pg (27.0-33.0); MCHC 35.2 % (32.0-36.0); MCV 89 fL (80-95); MPV 10.5 fL (8.0-11.0); Monocytes % 12.3; Neutrophils % 63.6; Platelet Count 265 10^3/uL (130-400); RBC 5.56 10^6/uL (4.36-5.78); RDW 11.9 % (11.8-14.1); RDW-SD 39.1 fL; WBC 10.21 10^3/uL (4.4-10.8)
== END 2023-05-06 03:12 | disposition home or self-care (01) ==
PROVIDERS: PCP Family Medicine; Visit Provider Registered Nurse
DX: F25.0 Schizoaffective disorder, bipolar type (principal); Z79.899 Other long term (current) drug therapy
CPT/HCPCS: 36415; 85025

== ENCOUNTER 2023-05-13 02:52 | Outpatient (CLI) | payer MEDICARE, MEDICAID, SELFPAY ==
[2023-05-13 11:48] LABS: Abs Immature Grans 0.36 10^3/uL (0.0-0.06); Absolute Basophil Count 0.11 10^3/uL (0.0-0.2); Absolute Eosinophil Count 0.16 10^3/uL (0.0-0.7); Absolute Lymphocyte Count 3.24 10^3/uL (1.2-3.4); Absolute Monocyte Count 0.75 10^3/uL (0.1-0.8); Absolute Neutrophil Count 5.82 10^3/uL (1.2-6.7); Basophils % 1.1; Eosinophils % 1.5; HCT 44.7 % (40.0-50.0); HGB 15.2 g/dL (13.5-17.5); Immature Grans % 3.4; MCH 31.3 pg (27.0-33.0); MCV 92 fL (80-95); MPV 10.1 fL (8.0-11.0); Monocytes % 7.2; Neutrophils % 55.8; Platelet Count 328 10^3/uL (130-400); RBC 4.85 10^6/uL (4.36-5.78); RDW 12.6 % (11.8-14.1); RDW-SD 42.9 fL; WBC 10.44 10^3/uL (4.4-10.8)
== END 2023-05-13 02:53 | disposition home or self-care (01) ==
PROVIDERS: Counselor Addiction (Substance Use Disorder); PCP Family Medicine; Visit Provider Registered Nurse
DX: F25.0 Schizoaffective disorder, bipolar type (principal); Z79.899 Other long term (current) drug therapy
CPT/HCPCS: 36415; 85025

== ENCOUNTER 2023-05-16 10:38 | Emergency (ER) | payer MEDICARE, MEDICAID, SELFPAY ==
[2023-05-16 10:37] VITALS: BP 128/88; PULSE 94; RESP 16; TEMP 36.5; O2SAT 95
--- NOTE | 2023-05-16 10:47 | ED.GENADUL_ITS ---
Discharge Plan Disposition Patient Disposition: Home Condition: Good Discharge Details Clinical Impression: Accidental medication overdose Primary Care Provider: Nisha Carrillo ED Provider: Marika Vale Home Meds and New Rx's Prescriptions: Continued Eliquis 5 MG tablet 5 mg PO BID Qty: 180 12RF sennosides [senna] 8.6 MG tablet 8.6 mg PO BID PRN1 Days Rx Instructions: prn divalproex 500 mg tablet extended release 24 hr 2,000 mg PO HS Rx Instructions: takes at 1600 loratadine 10 mg tablet 10 mg PO DAILY PRN clozapine 200 mg tablet 400 mg PO HS Hold Instructions: titrate back up per outpatient Patient Comments: pt states not taking stopped 9 days ago Rx Instructions: With 100 mg tab for total of 500 mg po qhs lorazepam 0.5 mg tablet 0.5 mg PO .QH PRN triamcinolone acetonide 0.1 % cream 1 applic topical BID thyroid (pork) [Gifford Thyroid] 90 MG tablet 90 mg PO QAM melatonin 3 MG tablet extended release 3 mg PO HS PRN ropinirole 1 mg Tablet 1 mg PO DIRECTED Rx Instructions: DAILY at 1600 albuterol sulfate [Ventolin HFA] 90 mcg/actuation Hfa Aerosol Inhaler 2 puff INHALATION Q4H PRN polyethylene glycol 3350 [Miralax] 17 gram/dose powder 17 g PO BID PRN Patient Comments: 17 gram by mouth once a day as needed metformin 1,000 mg tablet 1,000 mg PO BID potassium chloride 20 mEq tablet extended release 10 meq PO DAILY atorvastatin [Lipitor] 10 MG tablet 40 mg PO QPM Qty: 0 0RF docusate sodium 100 mg capsule 200 mg PO BID PRN furosemide 20 mg tablet 40 mg PO DAILY clozapine 100 mg tablet 100 mg PO QHS Patient Comments: Pt states not taking stopped 9 days ago Rx Instructions: Take in combination with two 200 mg tabs for total dose of 500 mg po qhs metoprolol succinate 25 mg Tablet Extended Release 24 Hr 12.5 mg PO DAILY Qty: 30 0RF magnesium chloride 64 mg magnesium tablet 64 mg PO DAILY Qty: 30 0RF Discharge Instructions Instructions: Medication Safety for Older Adults (ED) Additional Instructions: Your exam and history are reassuring. While the medication was not taken as prescribed, you are out of the window for any adverse effects and should be safe to be able to go home. Please try to find a way to duong the bottles in a way that you can identify which ones you take at which times to prevent misuse in the future. Please follow-up with your primary care provider. If you develop any new or worsening symptoms please seek care urgently once again. Referrals: Nisha Carrillo MD [Primary Care Provider] - Medical Decision Making Patient is a 62-year-old male brought in via EMS after possibly taking 1 extra dose of his clozapine. Patient believes it was 100 mg tablet. States that he took his last dose yesterday evening just prior to bed as prescribed. He reports that he is unable to read and believes that he may have taken an extra dose today accidentally. States that if he did in fact take this, it would have been at 06 30. States that he is feeling well. Denies any nausea and vomiting, in fact is hungry and requested food already. No fevers or chills. No shortness of breath or chest pain. States that he has a slight tremor at baseline but no acute change in this. 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 On exam, patient appears to be at his baseline. Patient is well-known to myself in the department. No vital sign abnormality to me is hemodynamically stable. No neurological abnormalities, pupils are equal round and reactive. patient's not diaphoretic overly dry. Patient is eating a sandwich and drinking and conversing normally. Consulted with poison control who advised that had they been contacted earlier, with 1 dose of a typical medicine, they would have advised the patient could have stayed home. Advised that if anything within 4 hours of having the medication he may have developed some anticholinergic effects but has been over 4 hours and patient does not have any side effects that have been subjective or objectively noted. Patient safe for discharge. We discussed attempting to duong the bottles in another way she does not have to read the meds. Typically, he does have mental health help with his medications. Return precautions discussed. Advise follow-up with primary care. All his questions and concerns were addressed and he is in agreement this plan. Patient feeling well and ready for discharge. HPI General Date/Time Provider Initiated Documentation: 05/16/23 10:47 . Limitations to Documentation: no limitations . Information obtained by: patient, EMS and RN notes reviewed . History of Present Illness 62 year old M presents to the emergency department with the chief complaint of accidentally took one extra dose of clorapine at 0630, described as mild (denies any symptoms, states he is feeling well), Patient notes no other symptoms.. Patient did receive the following treatments prior to arrival, none Related Data Home Medications Medication Instructions Recorded Confirmed melatonin 3 mg tablet,extended 3 mg PO HS PRN 01/23/16 12/19/22 release thyroid (pork) 90 mg tablet 90 mg PO QAM 01/23/16 12/19/22 (Gifford Thyroid) apixaban 5 mg tablet (Eliquis) 5 mg PO BID #180 tabs 07/20/17 12/19/22 sennosides 8.6 mg tablet (senna) 8.6 mg PO BID PRN 1 day 07/28/17 12/19/22 albuterol sulfate 90 mcg/actuation 2 puff inhalation Q4H PRN 03/27/19 12/19/22 aerosol inhaler (Ventolin HFA) ropinirole 1 mg tablet 1 mg PO DIRECTED 03/27/19 12/19/22 docusate sodium 100 mg capsule 200 mg PO BID PRN 11/13/20 12/19/22 furosemide 20 mg tablet 40 mg PO DAILY 08/10/21 12/19/22 metformin 1,000 mg tablet 1,000 mg PO BID 09/15/21 12/19/22 polyethylene glycol 3350 17 17 g PO BID PRN 09/15/21 12/19/22 gram/dose oral powder (Miralax) divalproex 500 mg tablet,extended 2,000 mg PO HS 09/16/21 12/19/22 release 24 hr loratadine 10 mg tablet 10 mg PO DAILY PRN 09/16/21 12/19/22 clozapine 200 mg tablet 400 mg PO HS 11/14/21 12/05/22 lorazepam 0.5 mg tablet 0.5 mg PO .QH PRN 11/14/21 12/19/22 clozapine 100 mg tablet 100 mg PO QHS 03/29/22 12/05/22 magnesium chloride 64 mg 64 mg PO DAILY #30 tabs 03/30/22 12/19/22 (magnesium chloride) tablet metoprolol succinate 25 mg 12.5 mg (1/2 x 25 mg) PO DAILY #30 10/23/22 07/14/23 tablet,extended release 24 hr tabs triamcinolone acetonide 0.1 % 1 applic topical BID 04/17/22 12/19/22 topical cream potassium chloride 20 mEq 10 meq PO DAILY 06/20/22 12/19/22 tablet,extended release atorvastatin 10 mg tablet (Lipitor) 40 mg (4 x 10 mg) PO QPM #0 tabs 06/25/22 12/19/22 Previous Rx's Medication Instructions Recorded apixaban 5 mg tablet (Eliquis) 5 mg PO BID #180 tabs 07/20/17 magnesium chloride 64 mg 64 mg PO DAILY #30 tabs 03/30/22 (magnesium chloride) tablet metoprolol succinate 25 mg 12.5 mg (1/2 x 25 mg) PO DAILY #30 03/30/22 tablet,extended release 24 hr tabs atorvastatin 10 mg tablet (Lipitor) 40 mg (4 x 10 mg) PO QPM #0 tabs 06/25/22 Allergies Allergy/AdvReac Type Severity Reaction Status Date / Time Penicillins AdvReac Intermediate black out Unverified 12/19/22 16:12 gabapentin AdvReac Mild Headache Unverified 12/19/22 16:12 niacin AdvReac Mild turn red Unverified 12/19/22 16:12 General Stated Complaint: GenMedical MARY: 4 Review of Systems Constitutional Constitutional: Reports as per HPI, Denies chills, Denies fever(s) and Denies headache(s) ENT Ears, Nose, Mouth, and Throat: Denies headache(s) Cardiovascular Cardiovascular: Reports as per HPI, Denies chest pain and Denies dyspnea Respiratory Respiratory: Reports as per HPI, Denies cough and Denies dyspnea Neurologic Neurologic: Denies headache(s) [facility] All Active Problems (Updated 05/16/23 @ 11:03 by SWAPNA Garcia) Accidental medication overdose (Acute) Urge incontinence (Acute) Polycythemia (Acute) Dehydration (Acute) Hypokalemia (Acute) Hypomagnesemia (Acute) Schizophrenia (Chronic) Weight gain (Acute 10/22/16) Screening for colorectal cancer (Acute) Heel ulcer (Acute) Medication monitoring encounter (Acute) Acute ischemic stroke (Acute) C1 cervical fracture (Acute) Chronic schizophrenia (Chronic) Ambulatory dysfunction (Acute) Alteration in thought content as evidenced by delusions (Acute) BRENNEN (acute kidney injury) (Acute) Medical History Afib Atrial enlargement, bilateral BCC (basal cell carcinoma of skin) Chronic constipation Diabetes mellitus, type 2 Diverticulosis Facial basal cell cancer (02/04/16) HTN (hypertension) (02/04/16) Hypothyroidism Non-ST elevation NE (NSTEMI) OAB (overactive bladder) Obesity RLS (restless legs syndrome) 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 Father Heart disease Brother Alcohol abuse Social History Smoking/Tobacco Use Status: Current every day Tobacco Type: cigarettes Smoking risk assessment performed?: Yes Alcohol Intake: current Alcohol Intake frequency: holidays/special occasions only Alcohol type: beer and hard liquor Drug use: Current Sobriety Substance use type: does not use Housing: other Current gender identity: male Do you feel safe at home: Yes Do you feel safe in your relationship?: Yes Exam Const General: cooperative, healthy appearing, comfortable and no acute distress Nutritional Appearance: well nourished and overweight Orientation: alert and awake Eyes General: appearance normal, both eyes and all related structures Pupils: PERRL, normal by confrontation and accommodation normal Resp Effort & Inspection: normal respiratory effort, able to speak in complete sentences and no respiratory distress Cardio Rate: regular rate Rhythm: regular rhythm Skin General skin exam: no rashes or lesions noted Neuro General: patient alert and patient awake Cognition: normal cognition Speech: speech normal Gait: normal gait Motor: muscle tone normal throughout, no pronator drift and no movement abn ormalities noted (slight tremor in BUE which patient states is baseline) Psych Appearance: grossly normal and well kempt Mental Status: mental status grossly normal Speech and Movement: speech and movement normal Course Vital Signs Vital signs: Vital Signs Temperature 36.5 C 05/16/23 10:37 Pulse 94 H 05/16/23 10:37 Respiratory Rate 16 05/16/23 10:37 Blood Pressure 128/88 05/16/23 10:37 Pulse Oximetry 95 05/16/23 10:37 Temperature 36.5 C 05/16/23 10:37 Temperature Source Skin 05/16/23 10:37 Pulse 94 H 05/16/23 10:37 Respiratory Rate 16 05/16/23 10:37 Blood Pressure 128/88 05/16/23 10:37 Blood Pressure Position Sitting 05/16/23 10:37 Pulse Oximetry 95 05/16/23 10:37 Oxygen Delivery Method Room Air 05/16/23 10:37 Oxygen Flow Rate 0 05/16/23 10:37 Pain Level 0 05/16/23 10:37
[2023-05-16 11:03] VITALS: BP 128/88; PULSE 94; RESP 15; RESP 16; TEMP 36.5; O2SAT 95
--- NOTE | 2023-05-16 11:15 | NUR.NOTE ---
PT reported that he had accidentally taken too many of 1 of his meds but is not entirely sure which one. PT denies any abnormal symptoms. When asked what he would like for us to do he requested access to food, reporting food insecurity at home. Gave PT a ham sandwich and gingerale.
== END 2023-05-16 15:25 | disposition home or self-care (01) ==
PROVIDERS: Emergency Provider Physician Assistant; PCP Family Medicine
DX: T50.991A Poisoning by other drugs, medicaments and biological substances, accidental (unintentional), initial encounter (principal)
CPT/HCPCS: 99281; 99282

== ENCOUNTER 2023-05-20 04:18 | Outpatient (CLI) | payer MEDICARE, MEDICAID, SELFPAY ==
[2023-05-20 11:24] LABS: Abs Immature Grans 0.09 10^3/uL (0.0-0.06); Absolute Basophil Count 0.08 10^3/uL (0.0-0.2); Absolute Lymphocyte Count 2.78 10^3/uL (1.2-3.4); Absolute Monocyte Count 0.79 10^3/uL (0.1-0.8); Basophils % 0.7; Eosinophils % 1.5; HCT 47.3 % (40.0-50.0); HGB 16.5 g/dL (13.5-17.5); Immature Grans % 0.8; Lymphocytes % 23.9; MCH 31.4 pg (27.0-33.0); MCHC 34.9 % (32.0-36.0); MCV 90 fL (80-95); MPV 10.2 fL (8.0-11.0); Monocytes % 6.8; Neutrophils % 66.3; Platelet Count 259 10^3/uL (130-400); RBC 5.25 10^6/uL (4.36-5.78); RDW 12.3 % (11.8-14.1); RDW-SD 40.2 fL; WBC 11.62 10^3/uL (4.4-10.8)
[2023-05-20 11:25] LABS: Absolute Eosinophil Count 0.17 10^3/uL (0.0-0.7)
== END 2023-05-20 04:19 | disposition home or self-care (01) ==
PROVIDERS: PCP Family Medicine; Visit Provider Registered Nurse
DX: F25.0 Schizoaffective disorder, bipolar type (principal); Z79.899 Other long term (current) drug therapy
CPT/HCPCS: 36415; 85025

== ENCOUNTER 2023-05-27 04:06 | Outpatient (CLI) | payer MEDICARE, MEDICAID, SELFPAY ==
[2023-05-27 10:55] LABS: Abs Immature Grans 0.05 10^3/uL (0.0-0.06); Absolute Basophil Count 0.05 10^3/uL (0.0-0.2); Absolute Eosinophil Count 0.16 10^3/uL (0.0-0.7); Absolute Lymphocyte Count 2.76 10^3/uL (1.2-3.4); Absolute Monocyte Count 0.67 10^3/uL (0.1-0.8); Absolute Neutrophil Count 4.72 10^3/uL (1.2-6.7); Basophils % 0.6; Eosinophils % 1.9; HCT 48.3 % (40.0-50.0); HGB 16.8 g/dL (13.5-17.5); Immature Grans % 0.6; Lymphocytes % 32.8; MCH 31.1 pg (27.0-33.0); MCHC 34.8 % (32.0-36.0); MCV 89 fL (80-95); MPV 10.4 fL (8.0-11.0); Neutrophils % 56.1; Platelet Count 242 10^3/uL (130-400); RDW 12.1 % (11.8-14.1); RDW-SD 39.6 fL; WBC 8.41 10^3/uL (4.4-10.8)
== END 2023-05-27 04:07 | disposition home or self-care (01) ==
PROVIDERS: PCP Family Medicine; Visit Provider Registered Nurse
DX: F25.0 Schizoaffective disorder, bipolar type (principal); Z79.899 Other long term (current) drug therapy
CPT/HCPCS: 36415; 85025

== ENCOUNTER 2023-06-03 01:20 | Outpatient (CLI) | payer MEDICARE, MEDICAID, SELFPAY ==
[2023-06-03 11:27] LABS: Abs Immature Grans 0.09 10^3/uL (0.0-0.06); Absolute Basophil Count 0.06 10^3/uL (0.0-0.2); Absolute Eosinophil Count 0.19 10^3/uL (0.0-0.7); Absolute Lymphocyte Count 2.53 10^3/uL (1.2-3.4); Absolute Monocyte Count 0.67 10^3/uL (0.1-0.8); Absolute Neutrophil Count 5.67 10^3/uL (1.2-6.7); Basophils % 0.7; Eosinophils % 2.1; HCT 46.8 % (40.0-50.0); HGB 16.3 g/dL (13.5-17.5); Lymphocytes % 27.5; MCH 31.2 pg (27.0-33.0); MCHC 34.8 % (32.0-36.0); MCV 90 fL (80-95); MPV 10.6 fL (8.0-11.0); Monocytes % 7.3; Neutrophils % 61.4; Platelet Count 235 10^3/uL (130-400); RBC 5.22 10^6/uL (4.36-5.78); RDW 12.1 % (11.8-14.1); RDW-SD 39.5 fL; WBC 9.21 10^3/uL (4.4-10.8)
== END 2023-06-03 01:21 | disposition home or self-care (01) ==
LOC: LBO 01:21
PROVIDERS: PCP Family Medicine; Visit Provider Registered Nurse
DX: F25.0 Schizoaffective disorder, bipolar type (principal); Z79.899 Other long term (current) drug therapy
CPT/HCPCS: 36415; 85025

== ENCOUNTER 2023-06-10 04:16 | Outpatient (CLI) | payer MEDICARE, MEDICAID, SELFPAY ==
[2023-06-10 11:16] LABS: Abs Immature Grans 0.06 10^3/uL (0.0-0.06); Absolute Basophil Count 0.04 10^3/uL (0.0-0.2); Absolute Eosinophil Count 0.14 10^3/uL (0.0-0.7); Absolute Lymphocyte Count 2.47 10^3/uL (1.2-3.4); Absolute Monocyte Count 0.53 10^3/uL (0.1-0.8); Absolute Neutrophil Count 5.92 10^3/uL (1.2-6.7); Basophils % 0.4; Eosinophils % 1.5; HCT 46.3 % (40.0-50.0); HGB 16.6 g/dL (13.5-17.5); Immature Grans % 0.7; MCH 31.7 pg (27.0-33.0); MCHC 35.9 % (32.0-36.0); MCV 89 fL (80-95); MPV 10.8 fL (8.0-11.0); Monocytes % 5.8; Neutrophils % 64.6; Platelet Count 276 10^3/uL (130-400); RBC 5.23 10^6/uL (4.36-5.78); RDW-SD 39.3 fL; WBC 9.16 10^3/uL (4.4-10.8)
== END 2023-06-10 04:17 | disposition home or self-care (01) ==
LOC: LBO 04:16
PROVIDERS: PCP Family Medicine; Visit Provider Counselor Addiction (Substance Use Disorder)
DX: F25.0 Schizoaffective disorder, bipolar type (principal); Z79.899 Other long term (current) drug therapy
CPT/HCPCS: 36415; 85025

== ENCOUNTER 2023-06-17 11:00 | Outpatient (CLI) | payer MEDICARE, MEDICAID, SELFPAY ==
[2023-06-17 11:13] LABS: Abs Immature Grans 0.11 10^3/uL (0.0-0.06); Absolute Basophil Count 0.07 10^3/uL (0.0-0.2); Absolute Eosinophil Count 0.24 10^3/uL (0.0-0.7); Absolute Lymphocyte Count 4.21 10^3/uL (1.2-3.4); Absolute Monocyte Count 0.87 10^3/uL (0.1-0.8); Absolute Neutrophil Count 5.89 10^3/uL (1.2-6.7); Basophils % 0.6; Eosinophils % 2.1; HCT 49.1 % (40.0-50.0); HGB 16.8 g/dL (13.5-17.5); MCH 30.7 pg (27.0-33.0); MCHC 34.2 % (32.0-36.0); MCV 90 fL (80-95); MPV 10.4 fL (8.0-11.0); Monocytes % 7.6; Neutrophils % 51.7; Platelet Count 284 10^3/uL (130-400); RBC 5.47 10^6/uL (4.36-5.78); RDW 11.9 % (11.8-14.1); RDW-SD 39.4 fL; WBC 11.39 10^3/uL (4.4-10.8)
[2023-06-19 14:54] LABS: Hemoglobin A1C 8.7 % (<5.7)
== END 2023-06-17 11:01 | disposition home or self-care (01) ==
LOC: LBO 11:04
PROVIDERS: PCP Family Medicine; Visit Provider Registered Nurse
DX: F25.0 Schizoaffective disorder, bipolar type (principal); Z79.899 Other long term (current) drug therapy; E11.9 Type 2 diabetes mellitus without complications
CPT/HCPCS: 36415; 83036; 85025

== ENCOUNTER 2023-06-24 14:49 | Outpatient (CLI) | payer MEDICARE, MEDICAID, SELFPAY ==
[2023-06-24 11:35] LABS: Abs Immature Grans 0.12 10^3/uL (0.0-0.06); Absolute Basophil Count 0.06 10^3/uL (0.0-0.2); Absolute Eosinophil Count 0.18 10^3/uL (0.0-0.7); Absolute Monocyte Count 0.71 10^3/uL (0.1-0.8); Absolute Neutrophil Count 6.07 10^3/uL (1.2-6.7); Basophils % 0.6; Eosinophils % 1.9; HCT 47.5 % (40.0-50.0); HGB 16.9 g/dL (13.5-17.5); Immature Grans % 1.3; Lymphocytes % 24.4; MCH 31.3 pg (27.0-33.0); MCHC 35.6 % (32.0-36.0); MCV 88 fL (80-95); MPV 10.5 fL (8.0-11.0); Monocytes % 7.5; Neutrophils % 64.3; Platelet Count 271 10^3/uL (130-400); RDW 12.1 % (11.8-14.1); WBC 9.44 10^3/uL (4.4-10.8)
== END 2023-06-24 14:50 | disposition home or self-care (01) ==
LOC: LBO 14:50
PROVIDERS: PCP Family Medicine; Visit Provider Registered Nurse
DX: F25.0 Schizoaffective disorder, bipolar type (principal); Z79.899 Other long term (current) drug therapy
CPT/HCPCS: 36415; 85025

== ENCOUNTER 2023-07-01 12:37 | Outpatient (CLI) | payer MEDICARE, MEDICAID, SELFPAY ==
[2023-07-01 11:39] LABS: Abs Immature Grans 0.07 10^3/uL (0.0-0.06); Absolute Basophil Count 0.05 10^3/uL (0.0-0.2); Absolute Eosinophil Count 0.22 10^3/uL (0.0-0.7); Absolute Lymphocyte Count 2.43 10^3/uL (1.2-3.4); Absolute Monocyte Count 0.65 10^3/uL (0.1-0.8); Absolute Neutrophil Count 7.27 10^3/uL (1.2-6.7); Basophils % 0.5; Eosinophils % 2.1; HCT 49.3 % (40.0-50.0); HGB 17.7 g/dL (13.5-17.5); Immature Grans % 0.7; Lymphocytes % 22.7; MCH 31.6 pg (27.0-33.0); MCHC 35.9 % (32.0-36.0); MCV 88 fL (80-95); MPV 10.5 fL (8.0-11.0); Monocytes % 6.1; Neutrophils % 67.9; Platelet Count 254 10^3/uL (130-400); RDW 12.2 % (11.8-14.1); RDW-SD 39.6 fL; WBC 10.69 10^3/uL (4.4-10.8)
== END 2023-07-01 12:38 | disposition home or self-care (01) ==
LOC: LBO 12:38
PROVIDERS: PCP Family Medicine; Visit Provider Registered Nurse
DX: F25.0 Schizoaffective disorder, bipolar type (principal); Z79.899 Other long term (current) drug therapy
CPT/HCPCS: 36415; 85025

== ENCOUNTER 2023-07-08 04:37 | Outpatient (CLI) | payer MEDICARE, MEDICAID, SELFPAY ==
[2023-07-08 11:07] LABS: Abs Immature Grans 0.06 10^3/uL (0.0-0.06); Absolute Basophil Count 0.07 10^3/uL (0.0-0.2); Absolute Eosinophil Count 0.22 10^3/uL (0.0-0.7); Absolute Lymphocyte Count 2.83 10^3/uL (1.2-3.4); Absolute Monocyte Count 0.79 10^3/uL (0.1-0.8); Absolute Neutrophil Count 5.98 10^3/uL (1.2-6.7); Basophils % 0.7; Eosinophils % 2.2; HCT 47.7 % (40.0-50.0); HGB 17.1 g/dL (13.5-17.5); Immature Grans % 0.6; Lymphocytes % 28.4; MCH 31.1 pg (27.0-33.0); MCHC 35.8 % (32.0-36.0); MCV 87 fL (80-95); MPV 10.2 fL (8.0-11.0); Monocytes % 7.9; Neutrophils % 60.2; Platelet Count 276 10^3/uL (130-400); RBC 5.49 10^6/uL (4.36-5.78); RDW 12.1 % (11.8-14.1); RDW-SD 38.5 fL; WBC 9.95 10^3/uL (4.4-10.8)
== END 2023-07-08 04:38 | disposition home or self-care (01) ==
LOC: LBO 04:37
PROVIDERS: PCP Family Medicine; Visit Provider Registered Nurse
DX: F25.0 Schizoaffective disorder, bipolar type (principal); Z79.899 Other long term (current) drug therapy
CPT/HCPCS: 36415; 85025

== ENCOUNTER 2023-07-15 02:31 | Outpatient (CLI) | payer MEDICARE, MEDICAID, SELFPAY ==
[2023-07-15 11:19] LABS: Abs Immature Grans 0.11 10^3/uL (0.0-0.06); Absolute Basophil Count 0.07 10^3/uL (0.0-0.2); Absolute Lymphocyte Count 2.36 10^3/uL (1.2-3.4); Absolute Monocyte Count 0.74 10^3/uL (0.1-0.8); Absolute Neutrophil Count 7.97 10^3/uL (1.2-6.7); Basophils % 0.6; Eosinophils % 0.9; HGB 15.7 g/dL (13.5-17.5); Lymphocytes % 20.8; MCH 31.7 pg (27.0-33.0); MCHC 36.5 % (32.0-36.0); MCV 87 fL (80-95); MPV 10.5 fL (8.0-11.0); Monocytes % 6.5; Neutrophils % 70.2; Platelet Count 274 10^3/uL (130-400); RBC 4.95 10^6/uL (4.36-5.78); RDW 12.4 % (11.8-14.1); WBC 11.35 10^3/uL (4.4-10.8)
== END 2023-07-15 02:32 | disposition home or self-care (01) ==
LOC: LBO 02:31
PROVIDERS: PCP Family Medicine; Visit Provider Registered Nurse
DX: F25.0 Schizoaffective disorder, bipolar type (principal); Z79.899 Other long term (current) drug therapy
CPT/HCPCS: 36415; 85025

== ENCOUNTER 2023-07-22 03:48 | Outpatient (CLI) | payer MEDICARE, MEDICAID, SELFPAY ==
[2023-07-22 11:37] LABS: Abs Immature Grans 0.05 10^3/uL (0.0-0.06); Absolute Basophil Count 0.05 10^3/uL (0.0-0.2); Absolute Eosinophil Count 0.19 10^3/uL (0.0-0.7); Absolute Lymphocyte Count 2.42 10^3/uL (1.2-3.4); Basophils % 0.5; HCT 47.9 % (40.0-50.0); HGB 16.8 g/dL (13.5-17.5); Immature Grans % 0.5; MCH 31.5 pg (27.0-33.0); MCHC 35.1 % (32.0-36.0); MCV 90 fL (80-95); MPV 11.7 fL (8.0-11.0); Monocytes % 7.5; Neutrophils % 63.5; Platelet Count 296 10^3/uL (130-400); RBC 5.33 10^6/uL (4.36-5.78); RDW 12.4 % (11.8-14.1); RDW-SD 40.1 fL; WBC 9.31 10^3/uL (4.4-10.8)
[2023-07-22 11:51] LABS: Hemoglobin A1C 8.7 % (<5.7)
== END 2023-07-22 03:49 | disposition home or self-care (01) ==
LOC: LBO 03:48
PROVIDERS: PCP Family Medicine; Visit Provider Registered Nurse
DX: E11.9 Type 2 diabetes mellitus without complications (principal); F25.0 Schizoaffective disorder, bipolar type; Z79.899 Other long term (current) drug therapy
CPT/HCPCS: 36415; 83036; 85025

== ENCOUNTER 2023-07-30 12:21 | Outpatient (CLI) | payer MEDICARE, MEDICAID, SELFPAY ==
[2023-07-30 12:36] LABS: Abs Immature Grans 0.06 10^3/uL (0.0-0.06); Absolute Eosinophil Count 0.16 10^3/uL (0.0-0.7); Absolute Lymphocyte Count 2.84 10^3/uL (1.2-3.4); Absolute Neutrophil Count 7.12 10^3/uL (1.2-6.7); Basophils % 0.5; Eosinophils % 1.5; HCT 50.9 % (40.0-50.0); HGB 17.6 g/dL (13.5-17.5); Immature Grans % 0.5; MCH 30.8 pg (27.0-33.0); MCHC 34.6 % (32.0-36.0); MCV 89 fL (80-95); MPV 10.7 fL (8.0-11.0); Monocytes % 6.4; Neutrophils % 65.1; Platelet Count 282 10^3/uL (130-400); RBC 5.71 10^6/uL (4.36-5.78); RDW 12.3 % (11.8-14.1); RDW-SD 39.8 fL; WBC 10.94 10^3/uL (4.4-10.8)
[2023-07-30 12:40] LABS: Absolute Basophil Count 0.05 10^3/uL (0.0-0.2)
== END 2023-07-30 12:22 | disposition home or self-care (01) ==
LOC: LBO 12:22
PROVIDERS: PCP Family Medicine; Visit Provider Registered Nurse
DX: Z79.899 Other long term (current) drug therapy (principal)
CPT/HCPCS: 36415; 85025

== ENCOUNTER 2023-08-05 03:07 | Outpatient (CLI) | payer MEDICARE, MEDICAID, SELFPAY ==
[2023-08-05 11:15] LABS: Abs Immature Grans 0.06 10^3/uL (0.0-0.06); Absolute Basophil Count 0.07 10^3/uL (0.0-0.2); Absolute Lymphocyte Count 2.31 10^3/uL (1.2-3.4); Absolute Monocyte Count 0.58 10^3/uL (0.1-0.8); Absolute Neutrophil Count 6.89 10^3/uL (1.2-6.7); Basophils % 0.7; HCT 49.5 % (40.0-50.0); HGB 17.5 g/dL (13.5-17.5); Immature Grans % 0.6; Lymphocytes % 23.1; MCH 31.3 pg (27.0-33.0); MCHC 35.4 % (32.0-36.0); MCV 89 fL (80-95); MPV 10.9 fL (8.0-11.0); Monocytes % 5.8; Neutrophils % 68.8; Platelet Count 270 10^3/uL (130-400); RBC 5.59 10^6/uL (4.36-5.78); RDW 12.2 % (11.8-14.1); RDW-SD 39.8 fL; WBC 10.01 10^3/uL (4.4-10.8)
[2023-08-05 12:33] LABS: Vitamin D 25 Total 13.9 ng/mL (30-100)
[2023-08-05 12:36] LABS: Vitamin B12 242 pg/mL (193-986)
== END 2023-08-05 03:08 | disposition home or self-care (01) ==
LOC: LBO 03:07
PROVIDERS: PCP Family Medicine; Visit Provider Registered Nurse
DX: F25.0 Schizoaffective disorder, bipolar type (principal); Z79.899 Other long term (current) drug therapy
CPT/HCPCS: 36415; 82306; 82607; 85025

== ENCOUNTER 2023-08-19 03:50 | Outpatient (CLI) | payer MEDICARE, MEDICAID, SELFPAY ==
[2023-08-19 11:33] LABS: Abs Immature Grans 0.07 10^3/uL (0.0-0.06); Absolute Basophil Count 0.04 10^3/uL (0.0-0.2); Absolute Eosinophil Count 0.21 10^3/uL (0.0-0.7); Absolute Lymphocyte Count 2.49 10^3/uL (1.2-3.4); Absolute Monocyte Count 0.66 10^3/uL (0.1-0.8); Absolute Neutrophil Count 5.56 10^3/uL (1.2-6.7); Basophils % 0.4; Eosinophils % 2.3; HCT 47.9 % (40.0-50.0); HGB 16.8 g/dL (13.5-17.5); Immature Grans % 0.8; Lymphocytes % 27.6; MCH 31.8 pg (27.0-33.0); MCHC 35.1 % (32.0-36.0); MCV 91 fL (80-95); MPV 11.1 fL (8.0-11.0); Monocytes % 7.3; Neutrophils % 61.6; Platelet Count 264 10^3/uL (130-400); RBC 5.29 10^6/uL (4.36-5.78); RDW 12.2 % (11.8-14.1); WBC 9.03 10^3/uL (4.4-10.8)
== END 2023-08-19 03:51 | disposition home or self-care (01) ==
LOC: LBO 03:50
PROVIDERS: PCP Family Medicine; Visit Provider Registered Nurse
DX: F25.0 Schizoaffective disorder, bipolar type (principal); Z79.899 Other long term (current) drug therapy
CPT/HCPCS: 36415; 85025

== ENCOUNTER 2023-08-26 05:11 | Outpatient (CLI) | payer MEDICARE, MEDICAID, SELFPAY ==
[2023-08-26 10:26] LABS: Abs Immature Grans 0.05 10^3/uL (0.0-0.06); Absolute Basophil Count 0.06 10^3/uL (0.0-0.2); Absolute Lymphocyte Count 2.56 10^3/uL (1.2-3.4); Absolute Monocyte Count 0.65 10^3/uL (0.1-0.8); Absolute Neutrophil Count 6.08 10^3/uL (1.2-6.7); Basophils % 0.6; Eosinophils % 2.1; HCT 51.3 % (40.0-50.0); HGB 17.7 g/dL (13.5-17.5); Immature Grans % 0.5; Lymphocytes % 26.7; MCH 31.5 pg (27.0-33.0); MCHC 34.5 % (32.0-36.0); MCV 91 fL (80-95); Monocytes % 6.8; Neutrophils % 63.3; Platelet Count 253 10^3/uL (130-400); RBC 5.62 10^6/uL (4.36-5.78); RDW-SD 40.4 fL
== END 2023-08-26 05:12 | disposition home or self-care (01) ==
LOC: LBO 05:11
PROVIDERS: PCP Family Medicine; Visit Provider Registered Nurse
DX: F25.0 Schizoaffective disorder, bipolar type (principal); Z79.899 Other long term (current) drug therapy
CPT/HCPCS: 36415; 85025

== ENCOUNTER 2023-08-27 05:43 | Outpatient (CLI) | payer MEDICARE, MEDICAID, SELFPAY ==
[2023-08-27 11:49] LABS: Bilirubin Negative (Negative); Blood Trace-intact (Negative); Clarity Clear (Clear); Glucose >=1000 mg/dL (Negative); Ketones 15 mg/dL (Negative); Leukocyte Esterase Negative (Negative); Nitrite Negative (Negative); Specific Gravity 1.015 (1.005-1.025); Urobilinogen 0.2 mg/dL (Up to 0.2); pH 5.5 (5-8)
[2023-08-27 11:58] LABS: Bacteria Rare HPF (Negative); C & S Indicated? No; Casts Negative LPF (Negative); Crystals Negative HPF (Negative); Epithelial Cells Few HPF (Negative); Mucus Negative (Negative); WBC 0-2 HPF (0-5)
[2023-08-27 12:19] LABS: ALT 53 U/L (16-63); AST 25 U/L (15-37); Albumin 4.2 g/dL (3.4-5.0); Alkaline Phosphatase 117 U/L (46-116); Anion Gap 9.8 mmol/L (3-11); BUN 18 mg/dL (7-18); Bilirubin, Total 0.5 mg/dL (0.2-1.0); CO2 30.2 mmol/L (21.0-32.0); Calcium 9.8 mg/dL (8.5-10.1); Chloride 103 mmol/L (98-107); Estimated GFR 84.05 (mL/min/1.73m2); Glucose 220 mg/dL (74-106); Potassium 3.6 mmol/L (3.5-5.1); Sodium 143 mmol/L (136-145); Total Protein 8.2 g/dL (6.4-8.2); Vitamin B12 266 pg/mL (193-986)
[2023-08-27 13:34] LABS: FREE T4 1.38 ng/dL (0.76-1.46); TSH 0.53 uIU/Ml (0.36-3.74)
== END 2023-08-27 05:44 | disposition home or self-care (01) ==
LOC: LBO 05:43
PROVIDERS: PCP Family Medicine; Visit Provider Nurse Practitioner Psychiatric/Mental Health
DX: Z79.899 Other long term (current) drug therapy (principal)
CPT/HCPCS: 36415; 80053; 81003; 81015; 82607; 82728; 83540; 83550; 84439; 84443; 87086

== ENCOUNTER 2023-09-02 04:49 | Outpatient (CLI) | payer MEDICARE, MEDICAID, SELFPAY ==
[2023-09-02 10:34] LABS: Absolute Eosinophil Count 0.17 10^3/uL (0.0-0.7); Absolute Lymphocyte Count 2.42 10^3/uL (1.2-3.4); Absolute Monocyte Count 1.03 10^3/uL (0.1-0.8); Basophils % 0.5; Eosinophils % 1.3; HCT 51.3 % (40.0-50.0); HGB 17.6 g/dL (13.5-17.5); Immature Grans % 0.8; Lymphocytes % 18.5; MCHC 34.3 % (32.0-36.0); MCV 90 fL (80-95); Monocytes % 7.9; Platelet Count 249 10^3/uL (130-400); RBC 5.68 10^6/uL (4.36-5.78); RDW-SD 39.8 fL; WBC 13.07 10^3/uL (4.4-10.8)
[2023-09-02 10:35] LABS: Absolute Basophil Count 0.07 10^3/uL (0.0-0.2); Absolute Neutrophil Count 9.28 10^3/uL (1.2-6.7)
== END 2023-09-02 04:50 | disposition home or self-care (01) ==
LOC: LBO 04:49
PROVIDERS: PCP Family Medicine; Visit Provider Registered Nurse
DX: F25.0 Schizoaffective disorder, bipolar type (principal); Z79.899 Other long term (current) drug therapy
CPT/HCPCS: 36415; 82728; 83540; 83550; 85025

== ENCOUNTER 2023-09-03 16:51 | Inpatient (IN) | payer MEDICARE, MEDICAID, SELFPAY ==
[2023-09-03] VITALS (21 sets, daily range): BP systolic 113–144; BP diastolic 65–79; PULSE 70–97; RESP 16–29; TEMP 37.1; O2SAT 92–100
--- NOTE | 2023-09-03 16:45 | RT.EKG_ITS ---
APPROVED REPORT Exam: Resting ECG Reason for Exam: Dizzyness Patient Location: E HR:103 bpm ECG Measurements Heart Rate 103 [place] [id number] P [id number] QRSd 98 QRS -9 QT 419 T 28 QTc 550 Conclusion Atrial fibrillation...V-rate 85-126, irreg A-activity Inferior infarct, old...Q >35mS, II III aVF Consider anteroseptal infarct...Q >30mS, dimin R, V1-V2 Prolonged QT interval...QTc >500mS
--- NOTE | 2023-09-03 17:00 | DI.CT_ITS ---
Exam(s) CT CHEST/ABD/PEL W EXAM: CT CHEST/ABD/PEL W CLINICAL HISTORY: weakness, chest and abdominal pain. TECHNIQUE: Imaging Protocol: Axial computed tomography images with coronal and sagittal reformatted images were created and reviewed CONTRAST MATERIAL: Intravenous: Omnipaque 350 Contrast volume:100 ml Oral: / no COMPARISON: CT CT CHEST PE CTA from 03/29/[address] BRAIN NECK CTA from 06/22/2022 CR,XR XR CHEST 2V PA LATERAL from 12/19/2022 CR XR CHEST 1V IN DI DEPT from 03/05/[address] BRAIN NECK CTA from 03/05/2023 FINDINGS: CHEST: Evaluation of pulmonary parenchyma somewhat limited due to respiratory motion and expiratory changes. Tracheobronchial tree: Patent where visualized. Pulmonary parenchyma: Bibasilar densities, pneumonia versus atelectasis. Pleura: No effusion or pneumothorax. Lymph nodes: Within normal limits. Aorta: Thoracic portion non-dilated. Heart: Stable small pericardial effusion. Heart normal size. Coronary artery calcifications. Bones: Unremarkable for age. No lytic or blastic lesions.No compression fractures. Soft tissues: Unremarkable. ABDOMEN and PELVIS: Liver: Normal density. No measurable mass. Gallbladder and biliary tract: Status post cholecystectomy. No biliary dilatation. Pancreas: Somewhat atrophic. No abnormal calcifications or inflammatory process. Spleen: Normal. Kidneys: Normal size, contour and axis. No radiodense stones. No obstructive uropathy. No suspicious masses seen. Adrenal glands: No masses seen. Aorta: Abdominal portion non-dilated. Atherosclerotic changes. Lymph nodes: Within normal limits. Soft tissues: Small bilateral fatty containing inguinal hernias. Bladder: Unremarkable. Bowel: No obstruction or bowel wall thickening. Large quantity of stool in the colon, greatest in t he descending and sigmoid. Peritoneal cavity: No ascites. No focal collection. No mesenteric inflammatory response. Bones: Degenerative changes greater in lower lumbar spine. Schmorl's node at superior endplate of L2 . Degenerative changes of both hips. Reproductive organs: Within normal limits. IMPRESSION: Bibasilar atelectasis versus pneumonia. Large quantity of stool in the colon, consistent with constipation. RADIATION DOSE DELIVERED: Total DLP DATA REPOSITORY: All CT scans at this facility are submitted to the National Radiology Data Registry (NRDR) Dose Index Registry (DIR) with the [employer] ([employer]). RADIATION OPTIMIZATION: All CT scans at this facility use at least one of these dose optimization te chniques: automated exposure control; mA and/or kV adjustment per patient size (includes targeted exa ms where dose is matched to clinical indication); or iterative reconstruction.
--- NOTE | 2023-09-03 17:00 | DI.CT_ITS ---
Exam(s) CT HEAD WO EXAM: CT HEAD WO CLINICAL HISTORY: dizzy. TECHNIQUE: Imaging Protocol: Axial computed tomography images with coronal and sagittal reformatted images were created and reviewed COMPARISON: No exams were available for comparison FINDINGS: Ventricles and Extra axial spaces: Normal in size and morphology for the patient's age. Hemorrhage: None. Cerebral parenchyma: No evidence of acute infarct or mass. Midline shift: None. Brainstem/Cerebellum: Normal. Calvarium: Normal. Visualized Paranasal sinuses:Clear. Mastoids: Clear. Soft Tissues: Unremarkable. ORBITS: Unremarkable. PITUITARY: Not enlarged. IMPRESSION: No acute intracranial process. RADIATION DOSE DELIVERED: Total DLP DATA REPOSITORY: All CT scans at this facility are submitted to the National Radiology Data Registry (NRDR) Dose Index Registry (DIR) with the [employer] (A[employer]). RADIATION OPTIMIZATION: All CT scans at this facility use at least one of these dose optimization te chniques: automated exposure control; mA and/or kV adjustment per patient size (includes targeted exa ms where dose is matched to clinical indication); or iterative reconstruction.
--- NOTE | 2023-09-03 17:15 | ED.GENADUL_ITS ---
Discharge Plan Disposition Patient Disposition: Admit to [facility] Condition: Stable Discharge Details Clinical Impression: Pneumonia, Chronic schizophrenia, Hypokalemia, Encephalopathy Primary Care Provider: Nisha Carrillo ED Provider: Sonya Butcher Home Meds and New Rx's Prescriptions: No Action Eliquis 5 MG tablet 5 mg PO BID Qty: 180 12RF sennosides [senna] 8.6 MG tablet 8.6 mg PO BID PRN1 Days Rx Instructions: prn divalproex 500 mg tablet extended release 24 hr 2,000 mg PO HS Patient Comments: unsure if taking Rx Instructions: takes at 1600 loratadine 10 mg tablet 10 mg PO DAILY PRN lorazepam 0.5 mg tablet 0.5 mg PO .QH PRN triamcinolone acetonide 0.1 % cream 1 applic topical BID thyroid (pork) [[place] Thyroid] 90 MG tablet 90 mg PO QAM melatonin 3 MG tablet extended release 3 mg PO HS PRN ropinirole 1 mg Tablet 1 mg PO DIRECTED Rx Instructions: DAILY at 1600 albuterol sulfate [Ventolin HFA] 90 mcg/actuation Hfa Aerosol Inhaler 2 puff INHALATION Q4H PRN metformin 1,000 mg tablet 1,000 mg PO BID Patient Comments: unsure of dose potassium chloride 20 mEq tablet extended release 10 meq PO DAILY atorvastatin [Lipitor] 10 MG tablet 40 mg PO QPM Qty: 0 0RF clozapine 100 mg tablet 100 mg PO DAILY AM clozapine 200 mg tablet 200 mg PO HS furosemide 40 mg tablet 40 mg PO QAM Xarelto 20 mg tablet 20 mg PO DAILY docusate sodium 100 mg capsule 200 mg PO BID PRN metoprolol succinate 25 mg Tablet Extended Release 24 Hr 12.5 mg PO DAILY Qty: 30 0RF Patient Comments: unsure of dose magnesium chloride 64 mg magnesium tablet 64 mg PO DAILY Qty: 30 0RF HPI General Date/Time Provider Initiated Documentation: 09/03/23 17:06 . HPI Narrative: This 62-year-old male with history of atrial fibrillation, diabetes, schizophrenia, polycythemia presents with report of headache, nausea, vomiting which started today around 1230. Denies any new medications. Denies any known trauma. Denies any chest pain or shortness of breath. Denies any blood in vomitus. Does not drink alcohol. Reports some abdominal discomfort. Denies any fever or chills. Related Data Home Medications Medication Instructions Recorded Confirmed melatonin 3 mg tablet,extended 3 mg PO HS PRN 01/23/16 09/03/23 release thyroid (pork) 90 mg tablet 90 mg PO QAM 01/23/16 09/03/23 ([place] Thyroid) apixaban 5 mg tablet (Eliquis) 5 mg PO BID #180 tabs 07/20/17 05/16/23 sennosides 8.6 mg tablet (senna) 8.6 mg PO BID PRN 1 day 07/28/17 09/03/23 albuterol sulfate 90 mcg/actuation 2 puff inhalation Q4H PRN 03/27/19 09/03/23 aerosol inhaler (Ventolin HFA) ropinirole 1 mg tablet 1 mg PO DIRECTED 03/27/19 09/03/23 docusate sodium 100 mg capsule 200 mg PO BID PRN 11/13/20 09/03/23 metformin 1,000 mg tablet 1,000 mg PO BID 09/15/21 09/03/23 divalproex 500 mg tablet,extended 2,000 mg PO HS 09/16/21 09/03/23 release 24 hr loratadine 10 mg tablet 10 mg PO DAILY PRN 09/16/21 09/03/23 lorazepam 0.5 mg tablet 0.5 mg PO .QH PRN 11/14/21 09/03/23 magnesium chloride 64 mg 64 mg PO DAILY #30 tabs 03/30/22 09/03/23 (magnesium chloride) tablet metoprolol succinate 25 mg 12.5 mg (1/2 x 25 mg) PO DAILY #30 03/30/22 09/03/23 tablet,extended release 24 hr tabs triamcinolone acetonide 0.1 % 1 applic topical BID 04/17/22 09/03/23 topical cream potassium chloride 20 mEq 10 meq PO DAILY 06/20/22 09/03/23 tablet,extended release atorvastatin 10 mg tablet (Lipitor) 40 mg (4 x 10 mg) PO QPM #0 tabs 06/25/22 09/03/23 clozapine 100 mg tablet 100 mg PO DAILY AM 09/03/23 09/03/23 clozapine 200 mg tablet 200 mg PO HS 09/03/23 09/03/23 furosemide 40 mg tablet 40 mg PO QAM 09/03/23 09/03/23 rivaroxaban 20 mg tablet (Xarelto) 20 mg PO DAILY 09/03/23 09/03/23 Previous Rx's Medication Instructions Recorded apixaban 5 mg tablet (Eliquis) 5 mg PO BID #180 tabs 07/20/17 magnesium chloride 64 mg 64 mg PO DAILY #30 tabs 03/30/22 (magnesium chloride) tablet metoprolol succinate 25 mg 12.5 mg (1/2 x 25 mg) PO DAILY #30 03/30/22 tablet,extended release 24 hr tabs atorvastatin 10 mg tablet (Lipitor) 40 mg (4 x 10 mg) PO QPM #0 tabs 06/25/22 Allergies Allergy/AdvReac Type Severity Reaction Status Date / Time Penicillins AdvReac Intermediate black out Unverified 09/03/23 17:00 gabapentin AdvReac Mild Headache Unverified 09/03/23 17:00 niacin AdvReac Mild turn red Unverified 09/03/23 17:00 General Stated Complaint: AMS/LOC MARY: 3 Course Vital Signs Vital signs: Vital Signs Respiratory Rate 25 H 09/03/23 16:55 Pulse Oximetry 93 09/03/23 16:55 Temperature 37.1 C 09/03/23 17:09 Temperature Source Temporal Artery Scan 09/03/23 17:09 Pulse 92 H 09/03/23 17:09 Pulse 96 H 09/03/23 17:10 Respiratory Rate 09/03/23 17:10 Respiratory Effort Normal, Non-Labored 09/03/23 17:13 Blood Pressure 143/73 H 09/03/23 17:09 Blood Pressure Mean 95 09/03/23 16:57 Blood Pressure Position Sitting 09/03/23 17:09 Pulse Oximetry 97 09/03/23 17:09 Oxygen Delivery Method Room Air 09/03/23 17:09 Oxygen Flow Rate 0 09/03/23 17:09 Pain Level 10 09/03/23 17:09 Lab/Test Results Lab/Test Results: 09/03/23 17:06 Blood Blood Culture - Pending 09/03/23 17:06 Blood Blood Culture - Pending Medical Decision Making This 62-year-old male known to this facility past medical history of atrial fibrillation, chronic anticoagulation, schizophrenia presents with report of weakness, nausea, vomiting, and cough Mild hypokalemia, prolongation of QTc, given 40 mEq of oral potassium Given antiemetics Given fluids Feeling improvement, able to tolerate p.o., port score for pneumonia which was visualized on CT chest abdomen and pelvis radiology interpretation my review shows evidence of pneumonia and patient's port score is 104, given his schizophrenia and mild confusion think he benefit from overnight IV antibiotics and observation He is not hypoxic, his lactate is elevated at 2 likely consistent with dehydration, does not meet septic shock criteria Vitals have remained stable in the emergency department He is agreeable to admission at this time, urinalysis does not show evidence of acute abnormality If patient in rate controlled atrial fibrillation Glucose 240 Patient agreeable to admission at this time Case discussed with Dr. Whitten who admit him to his service Quality:SDOH Health Related Social Needs: No Data to Display PFSH All Active Problems (Updated 09/03/23 @ 20:45 by SWAPNA Crawley) Encephalopathy (Acute) Pneumonia (Acute) Urge incontinence (Acute) Polycythemia (Acute) Dehydration (Acute) Hypokalemia (Acute) Hypomagnesemia (Acute) Schizophrenia (Chronic) Weight gain (Acute 10/22/16) Screening for colorectal cancer (Acute) Heel ulcer (Acute) Medication monitoring encounter (Acute) Acute ischemic stroke (Acute) C1 cervical fracture (Acute) Chronic schizophrenia (Chronic) Ambulatory dysfunction (Acute) Alteration in thought content as evidenced by delusions (Acute) BRENNEN (acute kidney injury) (Acute) Medical History HTN (hypertension) (02/04/16) 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 Father Heart disease Brother Alcohol abuse Social History Smoking/Tobacco Use Status: Current every day Tobacco Type: cigarettes Smoking risk assessment performed?: Yes Alcohol Intake: current Alcohol Intake frequency: holidays/special occasions only Alcohol type: beer and hard liquor Drug use: Current Sobriety Substance use type: does not use Housing: other Current gender identity: male Do you feel safe at home: Yes Do you feel safe in your relationship?: Yes
[2023-09-03 17:21] LABS: BE (Venous) 1 mmol/L (-2-3); HCO3 (Venous) 26 mmol/L (23-28); O2 Sat (Venous) 63 %; TCO2 (Venous) 23 mmol/L (24-29); pCO2 (Venous) 44 mmHg (41-51); pH (Venous) 7.38 (7.31-7.41); pO2 (Venous) 30 mmHg
[2023-09-03 17:23] LABS: Abs Immature Grans 0.09 10^3/uL (0.0-0.06); Absolute Basophil Count 0.06 10^3/uL (0.0-0.2); Absolute Lymphocyte Count 3.47 10^3/uL (1.2-3.4); Absolute Neutrophil Count 6.12 10^3/uL (1.2-6.7); Basophils % 0.6; Eosinophils % 1.9; HCT 51.5 % (40.0-50.0); HGB 17.8 g/dL (13.5-17.5); Immature Grans % 0.8; Lymphocytes % 32.1; MCH 31.6 pg (27.0-33.0); MCHC 34.6 % (32.0-36.0); MCV 91 fL (80-95); Neutrophils % 56.6; Platelet Count 251 10^3/uL (130-400); RBC 5.64 10^6/uL (4.36-5.78); RDW 11.9 % (11.8-14.1); RDW-SD 39.6 fL; WBC 10.81 10^3/uL (4.4-10.8)
[2023-09-03 17:28] LABS: Absolute Eosinophil Count 0.21 10^3/uL (0.0-0.7); Absolute Monocyte Count 0.86 10^3/uL (0.1-0.8)
[2023-09-03 17:58] LABS: Alkaline Phosphatase 122 U/L (46-116); Anion Gap 12.2 mmol/L (3-11); BUN 19 mg/dL (7-18); Bilirubin, Total 0.5 mg/dL (0.2-1.0); CO2 25.8 mmol/L (21.0-32.0); CREATININE 1.1 mg/dL (0.70-1.30); Calcium 8.9 mg/dL (8.5-10.1); Chloride 100 mmol/L (98-107); Estimated GFR 74.96 (mL/min/1.73m2); Glucose 240 mg/dL (74-106); Lipase 10 U/L (16-77); Potassium 3.2 mmol/L (3.5-5.1); Sodium 138 mmol/L (136-145); TSH (W/Ref FT4) 0.88 uIU/mL (0.36-3.74); Total Protein 7.9 g/dL (6.4-8.2); Troponin I < 50 ng/L (< or =60)
[2023-09-03 17:59] LABS: COVID-19 PCR Negative (Negative); Influenza A PCR Negative (Negative); Influenza B PCR Negative (Negative); RSV PCR Negative (Negative)
[2023-09-03 18:11] LABS: Source NASOPHARYNX
[2023-09-03 18:14] LABS: Procalcitonin < 0.1 ng/mL
[2023-09-03 18:25] LABS: ALT 51 U/L (16-63); AST 24 U/L (15-37)
[2023-09-03 18:46] LABS: Bilirubin Negative (Negative); Blood Negative (Negative); Clarity Clear (Clear); Glucose 500 mg/dL (Negative); Ketones 15 mg/dL (Negative); Leukocyte Esterase Negative (Negative); Nitrite Negative (Negative); Specific Gravity 1.015 (1.005-1.025); Urobilinogen 0.2 mg/dL (Up to 0.2); pH 5.5 (5-8)
[2023-09-03] MEDS: Normal Saline - Diluent 50 ML VIAL IJ (19:24)
[2023-09-03] MEDS: Omnipaque 350 MG/ML 100 ML BTL IJ (19:25)
[2023-09-03] MEDS: Normal Saline Flush 10 ML SYR IVP (19:26)
--- NOTE | 2023-09-03 19:48 | DI.VRAD_ITS ---
PROCEDURE INFORMATION: Exam: CT Head Without Contrast Exam date and time: 09/03/2023 7:11 PM Age: 62 years old Clinical indication: Dizziness TECHNIQUE: Imaging protocol: Computed tomography of the head without contrast. COMPARISON: CT HEAD CERVICAL SPINE WO 03/10/2023 6:44 PM FINDINGS: Brain: No intracranial hemorrhage. No subdural collections. No midline shift. Moderate cerebral atrophy. Mild white matter hypodense regions. Cerebral ventricles: No ventriculomegaly. Paranasal sinuses: Visualized sinuses are unremarkable. No fluid levels. Mastoid air cells: Visualized mastoid air cells are well aerated. Bones/joints: No acute skull fracture. Soft tissues: Unremarkable. IMPRESSION: No intracranial hemorrhage or other acute intracranial abnormality. Dictated and Authenticated by: Germain Kent MD. Ordering:ZAIRE Hassan MD
--- NOTE | 2023-09-03 20:10 | DI.VRAD_ITS ---
PROCEDURE INFORMATION: Exam: CT Chest With Contrast; Diagnostic Exam date and time: 09/03/2023 7:15 PM Age: 62 years old Clinical indication: Other: Weakness, chest and abdominal pain TECHNIQUE: Imaging protocol: Diagnostic computed tomography of the chest with contrast. 3D rendering (Not supervised by radiologist): MIP and/or 3D reconstructed images were created by the technologist. Contrast material: OMNIPAQUE 350; Contrast volume: 100 ml; Contrast route: INTRAVENOUS (IV); COMPARISON: CT CHEST PE CTA 03/29/2022 4:01 PM FINDINGS: Lungs: Moderate bilateral lower lobe consolidative atelectasis. Pleural spaces: Unremarkable. No pneumothorax. No pleural effusion. Heart: Unremarkable. No cardiomegaly. No pericardial effusion. Coronary arteries: Dense coronary artery calcifications. Lymph nodes: Unremarkable. No enlarged lymph nodes. Vasculature: Unremarkable. No aortic aneurysm. Bones/joints: Unremarkable. No acute fracture. Soft tissues: Unremarkable. IMPRESSION: Bilateral lower lobe consolidative atelectasis concerning for active pneumonia PROCEDURE INFORMATION: Exam: CT Abdomen And Pelvis With Contrast Exam date and time: 09/03/2023 7:15 PM Age: 62 years old Clinical indication: Other: Weakness, chest and abdominal pain TECHNIQUE: Imaging protocol: Computed tomography of the abdomen and pelvis with contrast. 3D rendering (Not supervised by radiologist): MIP and/or 3D reconstructed images were created by the technologist. Contrast material: OMNIPAQUE 350; Contrast volume: 100 ml; Contrast route: INTRAVENOUS (IV); COMPARISON: CT ABDOMEN PELVIS WO/W 11/28/2022 10:19 AM FINDINGS: Liver: Normal. No mass. Gallbladder and bile ducts: The gallbladder is surgically absent. Pancreas: Normal. No ductal dilation. Spleen: Normal. No splenomegaly. Adrenal glands: Normal. No mass. Kidneys and ureters: Normal. No hydronephrosis. Stomach and bowel: Moderate fecal and gaseous retention throughout the colon. No evidence of bowel obstruction. Appendix: The appendix is visualized and appears normal. Intraperitoneal space: Unremarkable. No free air. No significant fluid collection. Vasculature: Moderate atherosclerotic calcification throughout the aorta and iliac arteries. No evidence of aneurysm or dissection. Lymph nodes: Unremarkable. No enlarged lymph nodes. Urinary bladder: Unremarkable as visualized. Reproductive: Unremarkable as visualized. Bones/joints: Severe degenerative disc changes in the lumbar spine. No vertebral body compression or acute fracture. Moderate degenerative changes in both hip joints. Soft tissues: Unremarkable. IMPRESSION: Distal colonic constipation without evidence of bowel obstruction. Other chronic findings as noted. Dictated and Authenticated by: Gatito Watts MD. Ordering:ZAIRE Hassan MD
[2023-09-03] MEDS: cefTRIAXone 2 GM/50 ML BAG IVPB (20:27)
--- NOTE | 2023-09-03 20:38 | W.PM.HP.N ---
Date of service: 09/03/23 Time of Service: 20:38 Assessment and Plan Assessment and plan (1) Pneumonia: Start date: 09/03/23 Status: Acute Assessment and plan: Is a 62 close chronic schizophrenia and chronic atrial fibrillation with controlled rate on anticoagulation who presents with headache and nausea and vomiting but was found to have possible bilateral lower lobe pneumonia versus atelectasis. His WBC was not elevated and only slightly elevated recently with labs as an outpatient. He has had no fever and is not hypoxic. He has been vomiting and some concern for aspiration has been considered with patient on community-acquired antibiotic therapy for now. Consider stopping antibiotics altogether if patient continues to be stable with atelectasis being more likely than infection versus convert to oral therapy for completion of therapy. Follow-up imaging as indicated. Patient will be discharged home to continue with daily supervision with caregivers though he lives alone. Patient is a full code. Qualifiers: Laterality: bilateral Lung location: lower lobe of lung Pneumonia type: due to unspecified organism Qualified Code(s): J18.9 - Pneumonia, unspecified organism (2) Dehydration: Start date: 09/03/23 Status: Acute Assessment and plan: Mild dehydration with recent vomiting the patient is not far off baseline. Gentle IV hydration converted to oral hydration as nausea resolves. He is not having the nausea presently with no further emesis since admitted to the ED. Hold Lasix for now. (3) Hypokalemia: Status: Chronic Assessment and plan: Currently on potassium supplement with continuation of the same. IV potassium repletion if potassium remains below normal with morning lab. (4) HTN (hypertension): Assessment and plan: Continue outpatient medical therapy with adjustment of metoprolol to short acting tartrate salt with slight increase in dosing. If stable we will go home on his usual medical regimen. Qualifiers: Hypertension type: primary hypertension Qualified Code(s): I10 - Essential (primary) hypertension (5) Afib: Assessment and plan: Continue monitoring with outpatient medical therapy and anticoagulation. Qualifiers: Atrial fibrillation type: persistent (not longstanding) Qualified Code(s): I48.19 - Other persistent atrial fibrillation (6) Diabetes mellitus, type 2: Assessment and plan: Hold metformin while hospitalized and glucometer checks before meals and bedtime with correction insulin coverage on sliding scale. When patient returns home if stable, he can continue metformin. Qualifiers: Diabetes mellitus complication status: without complication Diabetes mellitus half-way insulin use: without half-way use Qualified Code(s): E11.9 - Type 2 diabetes mellitus without complications (7) Schizophrenia: Status: Chronic Assessment and plan: Continue outpatient medical therapy with monitoring during hospital stay. Patient appears to be overall stable on his present medical regimen. Qualifiers: Schizophrenia type: disorganized schizophrenia Qualified Code(s): F20.1 - Disorganized schizophrenia History of Present Illness History of Present Illness Chief Complaint: Headache with nausea and vomiting sudden onset Narrative: This is a 62-year-old male patient who has chronic schizophrenia and is supervised daily by caregivers being fairly compliant with his medical regimen. He presented with a sudden onset of headache with nausea and vomiting which responded to IV Reglan and symptomatic care. He appeared slightly dehydrated and imaging did reveal bilateral lower lobe pneumonia. With his vomiting aspiration pneumonia need to be considered. For now he is on treatment for me acquired pneumonia and is not hypoxic. He is more comfortable since admission with IV fluid resuscitation and IV antibiotic therapy. He is a very poor historian being schizophrenic and further history was not obtained. He does not complain of a headache and is not having nausea and vomiting presently. He is on a complicated medical regimen which limits some medical therapy because of interactions with his antipsychotics and psychiatric meds. He was admitted for continued IV hydration and IV antibiotic therapy and as stated considering changing to aspiration pneumonia treatment though this does not appear evident with bilateral lower lobe infiltrates rather than one-sided. He is also not hypoxic has had no fever and his procalcitonin was negative with CT showing atelectasis with only possible infiltrates. Ongoing antibiotic therapy may be necessary if patient clinically stabilizes with hydration. He is a full code. Review of Systems Narrative: 13 point review of systems otherwise unrevealing or stable. Patient is chronically overweight. He denies any focal neurological complaints and is not having chest pain. [facility] All Active Problems (Updated 09/04/23 @ 07:01 by Julius Calderon) Encephalopathy (Acute) Pneumonia (Acute) Pneumonia (Acute) Urge incontinence (Acute) Polycythemia (Acute) Dehydration (Acute) Hypokalemia (Chronic) Hypomagnesemia (Acute) Schizophrenia (Chronic) Weight gain (Acute 10/22/16) Screening for colorectal cancer (Acute) Heel ulcer (Acute) Medication monitoring encounter (Acute) Acute ischemic stroke (Acute) C1 cervical fracture (Acute) Chronic schizophrenia (Chronic) Ambulatory dysfunction (Acute) Alteration in thought content as evidenced by delusions (Acute) BRENNEN (acute kidney injury) (Acute) Medical History HTN (hypertension) (02/04/16) 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 Father Heart disease Brother Alcohol abuse Social History Smoking/Tobacco Use Status: Current every day Tobacco Type: cigarettes Smoking risk assessment performed?: Yes Alcohol Intake: current Alcohol Intake frequency: holidays/special occasions only Alcohol type: beer and hard liquor Drug use: Current Sobriety Substance use type: does not use Housing: apartment Current gender identity: male Do you feel safe at home: Yes Do you feel safe in your relationship?: Yes Meds Allergies and Home Medications Allergies Allergy/AdvReac Type Severity Reaction Status Date / Time Penicillins AdvReac Intermediate black out Unverified 09/03/23 17:00 gabapentin AdvReac Mild Headache Unverified 09/03/23 17:00 niacin AdvReac Mild turn red Unverified 09/03/23 17:00 Home Medications Medication Instructions Recorded Confirmed Type melatonin 3 mg tablet,extended 3 mg PO HS PRN 01/23/16 09/03/23 History release thyroid (pork) 90 mg tablet 90 mg PO QAM 01/23/16 09/03/23 History ([place] Thyroid) apixaban 5 mg tablet (Eliquis) 5 mg PO BID #180 tabs 07/20/17 05/16/23 Rx sennosides 8.6 mg tablet (senna) 8.6 mg PO BID PRN 1 day 07/28/17 09/03/23 History albuterol sulfate 90 mcg/actuation 2 puff inhalation Q4H PRN 03/27/19 09/03/23 History aerosol inhaler (Ventolin HFA) ropinirole 1 mg tablet 1 mg PO DIRECTED 03/27/19 09/03/23 History docusate sodium 100 mg capsule 200 mg PO BID PRN 11/13/20 09/03/23 History metformin 1,000 mg tablet 1,000 mg PO BID 09/15/21 09/03/23 History divalproex 500 mg tablet,extended 2,000 mg PO HS 09/16/21 09/03/23 History release 24 hr loratadine 10 mg tablet 10 mg PO DAILY PRN 09/16/21 09/03/23 History lorazepam 0.5 mg tablet 0.5 mg PO .QH PRN 11/14/21 09/04/23 History magnesium chloride 64 mg 64 mg PO DAILY #30 tabs 03/30/22 09/03/23 Rx (magnesium chloride) tablet metoprolol succinate 25 mg 12.5 mg (1/2 x 25 mg) PO DAILY #30 03/30/22 09/03/23 Rx tablet,extended release 24 hr tabs triamcinolone acetonide 0.1 % 1 applic topical BID 04/17/22 09/03/23 History topical cream potassium chloride 20 mEq 10 meq PO DAILY 06/20/22 09/03/23 History tablet,extended release atorvastatin 10 mg tablet (Lipitor) 40 mg (4 x 10 mg) PO QPM #0 tabs 06/25/22 09/03/23 Rx clozapine 100 mg tablet 100 mg PO DAILY AM 09/03/23 09/03/23 History clozapine 200 mg tablet 200 mg PO HS 09/03/23 09/03/23 History furosemide 40 mg tablet 40 mg PO QAM 09/03/23 09/03/23 History rivaroxaban 20 mg tablet (Xarelto) 20 mg PO DAILY 09/03/23 09/03/23 History Exam Narrative Exam Narrative: General: Patient appears older than stated age, moderately obese with odd affect having schizophrenia. He answers questions with short sentences but appears to be alert and oriented to at least person place. He is in no acute distress. HEENT: Normocephalic, eyes with pupils equal and reactive to light symmetrically, extraocular movement intact and sclera anicteric. Coarsened facial features. Oropharynx with moist Koza and fair dentition. Neck: Supple without JVD. Back: Stooped posture without CVA tenderness. Patient is swelling over his back with exam. Lungs: Fair aeration and clear to auscultation percussion with no focalizing rales or rhonchi. Slightly decreased aeration both bases. No dullness to percussion. Bronchovesicular breath sounds diffusely. Heart: Irregularly irregular rhythm with normal rate. No appreciable murmur or gallop. Abdomen: Obese contour, soft and nontender to palpation with no palpable hepatosplenomegaly. No guarding or rebound. Bowel sounds positive all quadrants. Genitalia/rectal: Exam deferred. Extremities: Without pitting edema, cyanosis or clubbing. Fair capillary refill. Joints with fair range of motion. Skin: Normal color, warm with slight moisture over the back otherwise dry. Neuro: Cranial nerves II through XII gross intact, no focalizing motor deficits. No tremor. Psych: Odd affect with flattened expression and minimal conversation. No abnormal thought processes. Mood appears generally normal. Remote memory intact with recent memory grossly intact. Results Imaging Imaging Studies: Exam: CT Chest With Contrast; Diagnostic Exam date and time: 09/03/2023 7:15 PM Age: 62 years old Clinical indication: Other: Weakness, chest and abdominal pain TECHNIQUE: Imaging protocol: Diagnostic computed tomography of the chest with contrast. 3D rendering (Not supervised by radiologist): MIP and/or 3D reconstructed images were created by the technologist. Contrast material: OMNIPAQUE 350; Contrast volume: 100 ml; Contrast route: INTRAVENOUS (IV); COMPARISON: CT CHEST PE CTA 03/29/2022 4:01 PM FINDINGS: Lungs: Moderate bilateral lower lobe consolidative atelectasis. Pleural spaces: Unremarkable. No pneumothorax. No pleural effusion. Heart: Unremarkable. No cardiomegaly. No pericardial effusion. Coronary arteries: Dense coronary artery calcifications. Lymph nodes: Unremarkable. No enlarged lymph nodes. Vasculature: Unremarkable. No aortic aneurysm. Bones/joints: Unremarkable. No acute fracture. Soft tissues: Unremarkable. IMPRESSION: Bilateral lower lobe consolidative atelectasis concerning for active pneumonia PROCEDURE INFORMATION: Exam: CT Abdomen And Pelvis With Contrast Exam date and time: 09/03/2023 7:15 PM Age: 62 years old Clinical indication: Other: Weakness, chest and abdominal pain TECHNIQUE: Imaging protocol: Computed tomography of the abdomen and pelvis with contrast. 3D rendering (Not supervised by radiologist): MIP and/or 3D reconstructed images were created by the technologist. Contrast material: OMNIPAQUE 350; Contrast volume: 100 ml; Contrast route: INTRAVENOUS (IV); COMPARISON: CT ABDOMEN PELVIS WO/W 11/28/2022 10:19 AM FINDINGS: Liver: Normal. No mass. Gallbladder and bile ducts: The gallbladder is surgically absent. Pancreas: Normal. No ductal dilation. Spleen: Normal. No splenomegaly. Adrenal glands: Normal. No mass. Kidneys and ureters: Normal. No hydronephrosis. Stomach and bowel: Moderate fecal and gaseous retention throughout the colon. No evidence of bowel obstruction. Appendix: The appendix is visualized and appears normal. Intraperitoneal space: Unremarkable. No free air. No significant fluid collection. Vasculature: Moderate atherosclerotic calcification throughout the aorta and iliac arteries. No evidence of aneurysm or dissection. Lymph nodes: Unremarkable. No enlarged lymph nodes. Urinary bladder: Unremarkable as visualized. Reproductive: Unremarkable as visualized. Bones/joints: Severe degenerative disc changes in the lumbar spine. No vertebral body compression or acute fracture. Moderate degenerative changes in both hip joints. Soft tissues: Unremarkable. IMPRESSION: Distal colonic constipation without evidence of bowel obstruction. Other chronic findings as noted. Exam: CT Head Without Contrast Exam date and time: 09/03/2023 7:11 PM Age: 62 years old Clinical indication: Dizziness TECHNIQUE: Imaging protocol: Computed tomography of the head without contrast. COMPARISON: CT HEAD CERVICAL SPINE WO 03/10/2023 6:44 PM FINDINGS: Brain: No intracranial hemorrhage. No subdural collections. No midline shift. Moderate cerebral atrophy. Mild white matter hypodense regions. Cerebral ventricles: No ventriculomegaly. Paranasal sinuses: Visualized sinuses are unremarkable. No fluid levels. Mastoid air cells: Visualized mastoid air cells are well aerated. Bones/joints: No acute skull fracture. Soft tissues: Unremarkable. IMPRESSION: No intracranial hemorrhage or other acute intracranial abnormality. Date of Exam: 06/23/22 EXAM: Comprehensive 2D, Doppler, and color-flow Echocardiogram Patient Location: In-Patient Room/Bed: 210 Video Photographer: Paty Ceballos RDCS (AE) Indications: CVA, A Fib Other Information Study Quality: Poor. Technically limited study due to inability to position patient, uncooperative patient exam done supine on stretcher. Exam terminated by patient.. Conclusion Technically limited study Left ventricle appears normal in size and wall thickness. Systolic function appears overall normal, EF 60 to 65%. The right atrium and right ventricle appear mildly dilated Left atrial size is normal Mild mitral annular calcification No hemodynamically significant valvular disease was identified Labs 09/04/23 06:15 09/04/23 06:15 Labs: Laboratory Results - last 24 hr 09/03/23 09/03/23 17:14 18:41 WBC 10.81 H RBC 5.64 Hgb 17.8 H Hct 51.5 H MCV 91 MCH 31.6 MCHC 34.6 RDW 11.9 Plt Count 251 MPV 11.0 Immature Gran % 0.8 Neutrophils % 56.6 Lymphocytes % 32.1 Monocytes % 8.0 Eosinophils % 1.9 Basophils % 0.6 Nucleated RBC % 0.0 Absolute Neutrophils 6.12 Absolute Lymphocytes 3.47 H Absolute Monocytes 0.86 H Absolute Eosinophils 0.21 Absolute Basophils 0.06 VBG pH 7.38 VBG pCO2 44 VBG pO2 30 VBG HCO3 26 VBG Total CO2 23 L VBG O2 Saturation 63 VBG Base Excess 1 VBG Lactate 2.0 H Sodium 138 Potassium 3.2 L Chloride 100 Carbon Dioxide 25.8 Anion Gap 12.2 H BUN 19 H Creatinine 1.1 Est GFR (CKD-EPI 2020) 74.96 Glucose 240 H Calcium 8.9 Magnesium 2.0 Total Bilirubin 0.5 AST 24 ALT 51 Alkaline Phosphatase 122 H Troponin I < 50 Total Protein 7.9 Albumin 4.0 Lipase 10 L Procalcitonin < 0.1 TSH 0.88 Urine Color Yellow Urine Clarity Clear Urine pH 5.5 Ur Specific [place] 1.015 Urine Protein Negative Urine Ketones 15 H Urine Blood Negative Urine Nitrite Negative Urine Bilirubin Negative Urine Urobilinogen 0.2 Ur Leukocyte Esterase Negative Urine Glucose 500 H COVID-19 Source NASOPHARYNX SARS-CoV-2 (PCR) Negative Influenza Type A (PCR) Negative Influenza Type B (PCR) Negative RSV (PCR) Negative Last Vital Signs Temp 37.1 C 09/03/23 17:09 Pulse 92 H 09/03/23 17:09 Resp 18 09/03/23 17:21 BP 143/73 H 09/03/23 17:09 Pulse Ox 97 09/03/23 17:09 Time Spent Time spent with Patient: >75 minutes Time was spent: preparing to see the patient(eg.review tests), obtaining and/or reviewing separately otained hiistory, ordering medications,tests, procedures, indepentently interpreting results and care coordination
[2023-09-03] MEDS: DOXYCYCLINE 100 MG in Normal Saline 100 ML IVPB ×2 (20:48→21:47)
[2023-09-03] MEDS: Potassium Chloride 20 MEQ TABCR 40 MEQ PO (20:51)
[2023-09-03] MEDS: Normal Saline 1,000 ML 1000 ML IV (20:52)
--- NOTE | 2023-09-03 21:00 | NUR.NOTE ---
Nursing Note: pt ripped out 2 iv's in a span of 20 minuets, it appeared that pt was using his mouth to suck on his iv site and pt had blood all over mouth and lips, as rn enters room pt states mayra been eating strawberries rn then placed 3rd IV ad secures it with coband and tape enuring that the iv cannot be easy pulled out. PMS is intact after placement of safety wrap.
--- NOTE | 2023-09-03 23:06 | NUR.NOTE ---
report called to med surg [id number]
[2023-09-03] MEDS: Normal Saline 1,000 ML 125 ML IV (23:53)
[2023-09-04] MEDS: Divalproex Sodium 500 MG TAB.ER.24H 2000 MG PO (00:11)
[2023-09-04] MEDS: rOPINIRole 1 MG TAB PO (00:11)
[2023-09-04] MEDS: Normal Saline Flush 10 ML SYR IVP (00:12)
[2023-09-04 00:21] VITALS: BP 121/73; PULSE 101; RESP 20; TEMP 37; O2SAT 91
[2023-09-04 01:11] VITALS: PULSE 79
[2023-09-04] MEDS: Insulin Aspart 300 UNITS/3 ML PEN SC ×2 (01:30→11:44)
[2023-09-04 03:41] VITALS: BP 128/75; PULSE 89; RESP 14; TEMP 36.8; O2SAT 95
[2023-09-04 06:59] LABS: HCT 47.3 % (40.0-50.0); MCH 30.9 pg (27.0-33.0); MCHC 33.8 % (32.0-36.0); MCV 91 fL (80-95); MPV 11.1 fL (8.0-11.0); Platelet Count 234 10^3/uL (130-400); RBC 5.18 10^6/uL (4.36-5.78); RDW-SD 39.8 fL; WBC 10.34 10^3/uL (4.4-10.8)
[2023-09-04 07:18] LABS: ALT 30 U/L (16-63); AST 14 U/L (15-37); Albumin 3.5 g/dL (3.4-5.0); Alkaline Phosphatase 109 U/L (46-116); Anion Gap 10.9 mmol/L (3-11); BUN 12 mg/dL (7-18); Bilirubin, Total 0.4 mg/dL (0.2-1.0); CO2 24.1 mmol/L (21.0-32.0); CREATININE 0.9 mg/dL (0.70-1.30); Calcium 8.5 mg/dL (8.5-10.1); Chloride 106 mmol/L (98-107); Estimated GFR 95.37 (mL/min/1.73m2); Glucose 170 mg/dL (74-106); Magnesium 2.1 mg/dL (1.8-2.4); Potassium 3.7 mmol/L (3.5-5.1); Sodium 141 mmol/L (136-145); Total Protein 6.8 g/dL (6.4-8.2)
[2023-09-04 08:01] VITALS: BP 116/69; PULSE 90; RESP 18; TEMP 36.7; O2SAT 96
[2023-09-04] MEDS: Normal Saline 1,000 ML 125 ML IV (08:11)
[2023-09-04] MEDS: Metoprolol 12.5 MG TAB PO (08:11)
[2023-09-04] MEDS: Rivaroxaban 10 MG TABLET 20 MG PO (08:12)
[2023-09-04] MEDS: Potassium Chloride 10 MEQ CAPCR PO (08:12)
[2023-09-04] MEDS: Magnesium Chloride 64 MG TABCR PO (08:12)
--- NOTE | 2023-09-04 09:00 | INITIAL_ITS ---
Date of service: 09/04/23 Care Management Initial Assmt Initial Assessment REASON FOR HOSPITALIZATION:: Pneumonia PREVIOUS FUNCTIONAL STATUS/SOCIAL/FAMILY SUPPORTS:: Judd lives at home alone in [facility] CURRENT FUNCTIONAL STATUS:: Judd was sitting up in a chair when talking with CM. Judd stated he is still in contact with [facility]ika a couple days ago who reports lives near where he lives, and he would like to get out more and start walking with Chika. He reported he was feeling ok and was looking forward to his lunch. Tia from [employer] met with CM to inform referrals have been completed for Judd to [email or web address] [employer] [employer], [employer], [employer], and [facility] due to concerns of being able to care for himself with his level of care needed. Currently, at home, Judd receives Kenneth RN services with Janny and personal care services through [facility] with Janette Turner. Judd is also receiving COA services with Suzy. Tia expressed discharge planning concerns regarding if Mabry oral diabetes medication was changed to insulin instead, it would be difficult to be managed at home. CM spoke to Suzy COA as well who said there is a possible bed placement at [facility]. CM following. ADVANCE DIRECTIVES:: On file. JOSE Enamorado Has patient been provided with info about the portal/API?: Yes Did the patient sign up for the portal?: No CODE STATUS:: Full Code INSURANCE COVERAGE / FINANCIAL ISSUES:: Medicare Part A & B CURRENT HOME/COMMUNITY SERVICES/EQUIPMENT:: [facility], [facility], [employer] [employer] PRIMARY CARE PHYSICIAN:: Nisha Carrillo M.D. POTENTIAL DISCHARGE NEEDS:: Short term and or terminal operator placement may be needed per [employer] field nurse case manager PATIENT/FAMILY EDUCATION NEEDS:: Review discharge instructions and plan of care. Self care needs including Ask Me Three ANTICIPATED BARRIERS TO DISCHARGE:: None identified at this time. TRANSPORTATION:: Via private vehicle by family. PLAN:: Judd will discharge home when medically cleared. He will transport via [facility] coordinated by CM. He will resume Kenneth services and [facility] services. He will follow up with his PCP and discharge plan of care. CM following. [facility] All Active Problems (Updated 09/05/23 @ 00:01 by SCOTT GEORGE) Encephalopathy (Acute) Pneumonia (Acute) Pneumonia (Acute) Urge incontinence (Acute) Polycythemia (Acute) Hypomagnesemia (Acute) Schizophrenia (Chronic) Weight gain (Acute 10/22/16) Screening for colorectal cancer (Acute) Heel ulcer (Acute) Medication monitoring encounter (Acute) Acute ischemic stroke (Acute) C1 cervical fracture (Acute) Chronic schizophrenia (Chronic) Ambulatory dysfunction (Acute) Alteration in thought content as evidenced by delusions (Acute) BRENNEN (acute kidney injury) (Acute) Medical History HTN (hypertension) (02/04/16) 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 (10/22/16) Facial basal cell cancer (02/04/16) OAB (overactive bladder) Diverticulosis Chronic constipation Hypothyroidism RLS (restless legs syndrome) Atrial enlargement, bilateral BCC (basal cell carcinoma of skin) Urinary incontinence Afib Vitreous floaters of right eye Non-ST elevation [place] (NSTEMI) Obesity Diabetes mellitus, type 2 Surgical History Hx of cholecystectomy Tonsillectomy Hydrocelectomy Excision, Lipoma Colonoscopy - MAC (01/25/16) 2010 Family History Mother No problems noted. Father Heart disease Brother Alcohol abuse Social History Smoking/Tobacco Use Status: Current every day Tobacco Type: cigarettes Smoking risk assessment performed?: Yes Alcohol Intake: current Alcohol Intake frequency: holidays/special occasions only Alcohol type: beer and hard liquor Drug use: Current Sobriety Substance use type: does not use Housing: apartment Current gender identity: male Do you feel safe at home: Yes Do you feel safe in your relationship?: Yes SDOH(Care Management) Screening Will the Patient Participate in the Screening?: Yes Do you worry about having a steady place to live?: yes Problems where you live: water leaks In the past 12 months, have you had to go without electric, gas, oil or water in your home?: no Have you or anyone in your house had to go without enough food to eat?: no Has lack of transportation kept you from medical appointments or from doing things needed for daily living?: no Has anyone in your support network made you feel unsafe for any reason?: no Social Determinants of Health Comments(SDOH Details): pt reports Adult protection agency. pt reports they help him take out his trash. Health Related Social Needs Health related social needs: inadequate housing(Z59.1) and housing instability, housed, with risk of homelessness(Z59.811)
[2023-09-04] MEDS: DOXYCYCLINE 100 MG in Normal Saline 100 ML IVPB (11:43)
[2023-09-04 12:00] VITALS: BP 123/69; PULSE 72; RESP 18; TEMP 38; O2SAT 94
[2023-09-04] MEDS: Docusate Sodium 100 MG CAP PO (14:58)
[2023-09-04] MEDS: Polyethylene Glycol 3350 17 GM PACKET PO (14:58)
--- NOTE | 2023-09-04 15:09 | W.PM.DS.N ---
Date of service: 09/04/23 Time of Service: 15:22 DS: Diagnosis Discharge Diagnosis (1) Pneumonia: Status: Acute Asessment and Plan: patient was treated w/ iv Rocephin and IV Doxycycline. CXR suggested bibasilar atectasis vs pneumonia. At discharge he was able to ambulate aroung the nursing station on room air w/ oxygen saturations of 91 to 92% and was not dyspneic. He will be discharged on 5 day course of doxycycline 100 mg bid and cefpodixime 200 mg po bid x 5 day. (2) Dehydration: Status: Resolved Asessment and Plan: treated w/ iv fluids, BUN and creatinine down to 12 and 0.9 at discharge (3) Hypokalemia: Status: Resolved Asessment and Plan: corrected w/ oral potassium. K 3.7 at discharge (4) HTN (hypertension): (5) Afib: Asessment and Plan: chronic and stable. his rhythm was monitored overnight and his rate was controlled. patient should continue his metoprool tartrate and his rivaroxaban (6) Diabetes mellitus, type 2: Asessment and Plan: blood glucose was in the 250's on admission and was controlled w/ sliding scale Novolog. He is to resume his metformin but should consult w/ his PCP on optimal treatment strategy. No change was made to his home meds. (7) Schizophrenia: Status: Chronic Asessment and Plan: patient is to continue his home dose of clozaril. Discharge Plan Disposition Patient Disposition: Home Condition: Improving Discharge Details Reason For Visit: Pneumonia Admit Date/Time: 09/03/23 20:41 Admit Provider: Julius Calderon Attending Provider: Julius Calderon Primary Care Provider: Nisha Carrillo [facility] Course Hospital Course: see admission H&P and E.D. notes for details of presentation. 62 yr old male w/ DM II and schizophernia was admitted for CAP, dehydration and hypokalemia. He was never hypoxic and did not require any supplemental oxygen. He was treated w/ iv Rocephin and doxycycline and will be dc home on oral cefpodoxime and doxycycline for 5 days. he was rehydrated w/ iv fluids and his hypokalemia was corrected. He was desiring to return home for [facility] and as he was tolerating solid foods, he was deemed medical stable for outpatient treatment and follow up. Home Meds and New Rx's Prescriptions: New cefpodoxime 200 mg tablet 200 mg PO BID Qty: 10 0RF Rx Instructions: must administer with a meal/food doxycycline hyclate 100 mg tablet 100 mg PO BID Qty: 10 0RF Continued Eliquis 5 MG tablet 5 mg PO BID Qty: 180 12RF sennosides [senna] 8.6 MG tablet 8.6 mg PO BID PRN1 Days Rx Instructions: prn divalproex 500 mg tablet extended release 24 hr 2,000 mg PO HS Patient Comments: unsure if taking Rx Instructions: takes at 1600 loratadine 10 mg tablet 10 mg PO DAILY PRN lorazepam 0.5 mg tablet 0.5 mg PO .QH PRN triamcinolone acetonide 0.1 % cream 1 applic topical BID thyroid (pork) [Hasty Thyroid] 90 MG tablet 90 mg PO QAM melatonin 3 MG tablet extended release 3 mg PO HS PRN ropinirole 1 mg Tablet 1 mg PO DIRECTED Rx Instructions: DAILY at 1600 albuterol sulfate [Ventolin HFA] 90 mcg/actuation Hfa Aerosol Inhaler 2 puff INHALATION Q4H PRN metformin 1,000 mg tablet 1,000 mg PO BID Patient Comments: unsure of dose potassium chloride 20 mEq tablet extended release 10 meq PO DAILY atorvastatin [Lipitor] 10 MG tablet 40 mg PO QPM Qty: 0 0RF clozapine 100 mg tablet 100 mg PO DAILY AM clozapine 200 mg tablet 200 mg PO HS furosemide 40 mg tablet 40 mg PO QAM Xarelto 20 mg tablet 20 mg PO DAILY docusate sodium 100 mg capsule 200 mg PO BID PRN metoprolol succinate 25 mg Tablet Extended Release 24 Hr 12.5 mg PO DAILY Qty: 30 0RF Patient Comments: unsure of dose magnesium chloride 64 mg magnesium tablet 64 mg PO DAILY Qty: 30 0RF Discharge Instructions Instructions: Community Acquired Pneumonia (DC) Additional Instructions: You were treated for community aquired pneumonia and given iv antibiotics including Ceftriaxone and doxycycline. Your oxygen levels are normal at rest and even w/ ambulation your oxygen levels remained 91 to 92% on room air, therefore you do not need supplemental oxygen. You are being sent home on 5 day course of oral antibiotics including cefpodoxime and doxycycline. Please follow up w/ your primary care provider next week. If you have any fevers, shaking chills (rigors) or you are unable to keep down foods and liquid or you are getting short of breath, please return to the emergency room. You were also given iv fluids and Tylenol and anti nausea medications, however at the time of your discharge you were able to eat lunch well w/ no nausea or abdominal complaints. Please consult w/ your primary care provider about your diabetes, your gluce readings elevated on admission into the 250's but on the day of your discharge they have been in th 140's to 170's. Your primary care provider can best advise you on the proper oral agents to take for your diabetes. Stand Alone Forms: Nursing Discharge Form Referrals: Nisha Carrillo MD [Primary Care Provider] - 09/16/23 11:00 am (With Julio Silva ) Activity:: Activity as Tolerated Equipment/Supplies:: No Equipment Needed Diet:: Carb Counting DS: Summary Time Spent with Patient providing and/or coordinating discharge services: Greater than 30 minutes Status at Discharge Functional status at discharge: independent ambulation Overall status at discharge: patient is progressing back to baseline Mental Status: mental status grossly normal Speech and Movement: speech and movement normal Mood: congruent mood Affect: normal affect Quality:SDOH Health Related Social Needs: Health related social needs inadequate housing, risk of homeless Referrals and interventions: pt reports he lives at home, alone. Exam Narrative Exam Narrative: Morbidly obese male who is alert and oriented, he is eager to get out of his chair and go for a walk. I walked him w/ his primary nurse and an GENETIC COORDINATOR following him and me and we made a loop around the nursing station (about 200 ft) while monitoring his oxygen saturation. He did not drop below 91% on room air. Lungs: clear w/ some diminished breath sounds at the bases, no rhonchi or wheezing Heart: irregularly irregular but controlled rate Abdomen: obese, soft, nontender w/ normal bowel sounds Extremities: no edema Psych Mental Status: mental status grossly normal Speech and Movement: speech and movement normal Mood: congruent mood Affect: normal affect DS: Data Vitals/I&O Vitals and I&O: Vital Signs Temperature 38.0 C H 09/04/23 12:00 Temperature Source Tympanic 09/04/23 12:00 Pulse 72 09/04/23 12:00 Pulse Rhythm Regular 09/04/23 08:22 Pulse 77 09/03/23 21:46 Respiratory Rate 18 09/04/23 12:00 Respiratory Effort Normal, Non-Labored 09/04/23 08:22 Respiratory Depth Normal 09/04/23 08:22 Respiratory Pattern Normal 09/04/23 08:22 Blood Pressure 123/69 09/04/23 12:00 Blood Pressure Mean 93 09/03/23 21:46 Blood Pressure Position Sitting 09/03/23 17:09 Pulse Oximetry 94 09/04/23 12:00 Oxygen Delivery Method Room Air 09/04/23 12:00 Oxygen Flow Rate 0 09/04/23 12:00 Pain Level 0 09/04/23 00:21 Comment pt reports no pain. 09/04/23 00:49 Intake & Output 09/03/23 09/04/23 09/04/23 23:59 11:59 23:59 Intake Total 1250 / 1250 2221 / 2501 280 / 2501 Balance 1250 / 1250 2221 / 2501 280 / 2501 Weight 121 kg 119.9 kg Intake: IV 1250 / 1250 2000 / 2100 100 / 2100 Oral 221 / 401 180 / 401 Other: Urine Color Yellow Yellow Urine Appearance Clear Clear Urine Odor Normal Comment pt incontinent breif changed chucks, changed. Voiding Methods Diaper Toilet Incontinent Diaper Incontinent Data Completed and Pending Labs on day of discharge: Labs from last 24 hours 09/04/23 09/03/23 09/03/23 06:15 18:41 17:14 WBC 10.34 10.81 H RBC 5.18 5.64 Hgb 16.0 17.8 H Hct 47.3 51.5 H MCV 91 91 MCH 30.9 31.6 MCHC 33.8 34.6 RDW 12.0 11.9 Plt Count 234 251 MPV 11.1 H 11.0 Immature Gran % 0.8 Neutrophils % 56.6 Lymphocytes % 32.1 Monocytes % 8.0 Eosinophils % 1.9 Basophils % 0.6 Nucleated RBC % 0.0 Absolute Neutrophils 6.12 Absolute Lymphocytes 3.47 H Absolute Monocytes 0.86 H Absolute Eosinophils 0.21 Absolute Basophils 0.06 VBG pH 7.38 VBG pCO2 44 VBG pO2 30 VBG HCO3 26 VBG Total CO2 23 L VBG O2 Saturation 63 VBG Base Excess 1 VBG Lactate 2.0 H Sodium 141 138 Potassium 3.7 3.2 L Chloride 106 100 Carbon Dioxide 24.1 25.8 Anion Gap 10.9 12.2 H BUN 12 19 H Creatinine 0.9 1.1 Est GFR (CKD-EPI 2020) 95.37 74.96 Glucose 170 H 240 H Calcium 8.5 8.9 Magnesium 2.1 2.0 Total Bilirubin 0.4 0.5 AST 14 L 24 ALT 30 51 Alkaline Phosphatase 109 122 H Troponin I < 50 Total Protein 6.8 7.9 Albumin 3.5 4.0 Lipase 10 L Procalcitonin < 0.1 TSH 0.88 Urine Color Yellow Urine Clarity Clear Urine pH 5.5 Ur Specific [place]ander 1.015 Urine Protein Negative Urine Ketones 15 H Urine Blood Negative Urine Nitrite Negative Urine Bilirubin Negative Urine Urobilinogen 0.2 Ur Leukocyte Esterase Negative Urine Glucose 500 H COVID-19 Source NASOPHARYNX SARS-CoV-2 (PCR) Negative Influenza Type A (PCR) Negative Influenza Type B (PCR) Negative RSV (PCR) Negative 09/03/23 18:00 Blood Blood Culture - Pending 09/03/23 17:14 Blood Blood Culture - Pending Preliminary micro results at discharge 09/03/23 18:00 Blood Culture - Pending Blood 09/03/23 17:14 Blood Culture - Pending Blood PFSH All Active Problems (Updated 09/04/23 @ 15:09 by Brice Hickman MD) Encephalopathy (Acute) Pneumonia (Acute) Pneumonia (Acute) Urge incontinence (Acute) Polycythemia (Acute) Hypomagnesemia (Acute) Schizophrenia (Chronic) Weight gain (Acute 10/22/16) Screening for colorectal cancer (Acute) Heel ulcer (Acute) Medication monitoring encounter (Acute) Acute ischemic stroke (Acute) C1 cervical fracture (Acute) Chronic schizophrenia (Chronic) Ambulatory dysfunction (Acute) Alteration in thought content as evidenced by delusions (Acute) BRENNEN (acute kidney injury) (Acute) Medical History HTN (hypertension) (02/04/16) 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 Father Heart disease Brother Alcohol abuse Social History Smoking/Tobacco Use Status: Current every day Tobacco Type: cigarettes Smoking risk assessment performed?: Yes Alcohol Intake: current Alcohol Intake frequency: holidays/special occasions only Alcohol type: beer and hard liquor Drug use: Current Sobriety Substance use type: does not use Housing: apartment Current gender identity: male Do you feel safe at home: Yes Do you feel safe in your relationship?: Yes Time Spent with Patient Time Spent with Patient: <45 minutes Time was spent: preparing to see the patient(eg.review tests), ordering medications,tests, procedures, referring, communicating with other health home health care physician, indepentently interpreting results, counseling the patient and care coordination
[2023-09-04 15:13] VITALS: BP 102/68; PULSE 88; RESP 18; TEMP 36.2; O2SAT 95
--- NOTE | 2023-09-04 15:35 | PDOC.HHF2F_ITS ---
Home Health Referral Home Health Orders Clinical synopsis of why skilled professionals are needed: diabetes montoring, monitor treatment of his community aquired pneumonia Medical diagnosis necessitation home health referral: DM, CAP Registered Nurse: Check all that apply Instruct on new or changed medication(s)/assess compliance: Ordered (assess medication compliance and assess compliance w/ cervical collar) Other: patient to wear hard cervical collar for two more weeks and have repeat c spine films done and sent to [facility] spine clinic Physical Therapist: Check all that apply Increase strength & endurance for safe mobility at home: Ordered To design/establish home maintenance program: Ordered Fall reduction therapy program for patient with history of frequent falls: Ordered Home safety evaluation and teaching/gait training including stair management (if applicable): Ordered Aviation Electronics Technician: Assist with community resources: Ordered Home Bound Status Requires the aid of supportive device (check all that apply): Cane Patient has a condition such that leaving home is medically contraindicated (Describe): see above Encounter Date and Reason: I certify that a FTF encounter for this patient was performed on September 04, 2023 and that such encounter was related to the primary reason the patient requires home health services. The encounter was conducted in the following manner: * By me as the certifying physician, COTTON BAG CLIPPER, PA or * By an inpatient physician, COTTON BAG CLIPPER or PA during an inpatient stay who communicated findings to me, Certification And Authentication I certify that I composed the above information based on my clinical judgment relating to this patient's medical condition and, if applicable, clinical findings communicated to me by the NPP or inpatient physician who performed the FTF encounter. Name of Provider that will be monitoring home health services: Nisha Carrillo
--- NOTE | 2023-09-04 16:00 | CHAPLAIN ---
[facility]udd [facility] I visited. He was pleasant and easily engaged in conversation. 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 He said he's lived in [place], where he drove a [employer], and other places including [place]. He shared some personal history and asked for some applesauce which I was able to get for him. Judd said he liked the idea of praying and saying prayers for other.
== END 2023-09-04 16:09 | disposition home health service (06) | DRG 194 ==
LOC: ER 21:05 → MS 23:15
PROVIDERS: Admitting Provider Family Medicine; Emergency Provider Physician Assistant; PCP Family Medicine; Visit Provider Family Medicine
DX: J18.9 Pneumonia, unspecified organism (principal); F20.1 Disorganized schizophrenia; J98.11 Atelectasis; I48.19 Other persistent atrial fibrillation; E86.0 Dehydration; E87.6 Hypokalemia; I10 Essential (primary) hypertension; E11.9 Type 2 diabetes mellitus without complications; Z79.01 Long term (current) use of anticoagulants; R11.2 Nausea with vomiting, unspecified; R51.9 Headache, unspecified; E66.9 Obesity, unspecified; I25.2 Old myocardial infarction; G25.81 Restless legs syndrome; R32 Unspecified urinary incontinence; K59.09 Other constipation; F17.210 Nicotine dependence, cigarettes, uncomplicated
CPT/HCPCS: 00123; 36415; 74177; 80053; 82805; 83690; 84145; 85027; 87040; 87637; 93005; 96365; 96368; 96374; 99285; 70450; 71260; 81003; 83605; 83735; 84443; 84484; 85025; 93010; 99223; 99238; J0696; J1815; J3490

== ENCOUNTER 2023-09-09 10:14 | Outpatient (CLI) | payer MEDICARE, MEDICAID, SELFPAY ==
[2023-09-09 10:53] LABS: Absolute Basophil Count 0.07 10^3/uL (0.0-0.2); Absolute Eosinophil Count 0.26 10^3/uL (0.0-0.7); Absolute Lymphocyte Count 2.68 10^3/uL (1.2-3.4); Absolute Monocyte Count 0.64 10^3/uL (0.1-0.8); Basophils % 0.8; Eosinophils % 2.8; HCT 50.9 % (40.0-50.0); HGB 17.1 g/dL (13.5-17.5); Immature Grans % 1.1; MCH 31.1 pg (27.0-33.0); MCHC 33.6 % (32.0-36.0); MCV 93 fL (80-95); MPV 10.8 fL (8.0-11.0); Monocytes % 6.9; Neutrophils % 59.4; Platelet Count 272 10^3/uL (130-400); RDW 12.2 % (11.8-14.1); RDW-SD 41.8 fL; WBC 9.25 10^3/uL (4.4-10.8)
[2023-09-09 11:43] LABS: Iron 74 ug/dL (65-175); Total Iron Binding Capacity 327 ug/dL (250-450); Transferrin Sat 23 % (20-55)
[2023-09-09 11:57] LABS: Ferritin 85 ng/mL (26-388)
== END 2023-09-09 10:15 | disposition home or self-care (01) ==
LOC: LBO 10:15
PROVIDERS: PCP Family Medicine; Visit Provider Nurse Practitioner Psychiatric/Mental Health
DX: D50.9 Iron deficiency anemia, unspecified (principal); F25.0 Schizoaffective disorder, bipolar type; Z79.899 Other long term (current) drug therapy
CPT/HCPCS: 36415; 82728; 83540; 83550; 85025

== ENCOUNTER 2023-09-23 10:21 | Outpatient (CLI) | payer MEDICARE, MEDICAID, SELFPAY ==
[2023-09-23 10:58] LABS: Abs Immature Grans 0.06 10^3/uL (0.0-0.06); Absolute Basophil Count 0.07 10^3/uL (0.0-0.2); Absolute Eosinophil Count 0.22 10^3/uL (0.0-0.7); Absolute Lymphocyte Count 3.38 10^3/uL (1.2-3.4); Absolute Monocyte Count 0.66 10^3/uL (0.1-0.8); Absolute Neutrophil Count 5.96 10^3/uL (1.2-6.7); Basophils % 0.7; Eosinophils % 2.1; HCT 51.3 % (40.0-50.0); HGB 18.1 g/dL (13.5-17.5); Immature Grans % 0.6; Lymphocytes % 32.7; MCH 31.6 pg (27.0-33.0); MCHC 35.3 % (32.0-36.0); MCV 90 fL (80-95); MPV 11.4 fL (8.0-11.0); Monocytes % 6.4; Neutrophils % 57.5; Platelet Count 263 10^3/uL (130-400); RBC 5.72 10^6/uL (4.36-5.78); RDW 12.2 % (11.8-14.1); WBC 10.35 10^3/uL (4.4-10.8)
[2023-09-23 15:28] LABS: Ferritin 80 ng/mL (26-388)
[2023-09-23 16:19] LABS: Iron 81 ug/dL (65-175); Total Iron Binding Capacity 347 ug/dL (250-450); Transferrin Sat 23 % (20-55)
== END 2023-09-23 10:22 | disposition home or self-care (01) ==
LOC: LBO 10:22
PROVIDERS: PCP Family Medicine; Visit Provider Nurse Practitioner Psychiatric/Mental Health
DX: D50.9 Iron deficiency anemia, unspecified (principal); F25.0 Schizoaffective disorder, bipolar type; Z79.899 Other long term (current) drug therapy
CPT/HCPCS: 36415; 82728; 83540; 83550; 85025

== ENCOUNTER 2023-09-30 05:08 | Outpatient (CLI) | payer MEDICARE, MEDICAID, SELFPAY ==
[2023-09-30 11:12] LABS: Abs Immature Grans 0.05 10^3/uL (0.0-0.06); Absolute Basophil Count 0.05 10^3/uL (0.0-0.2); Absolute Eosinophil Count 0.28 10^3/uL (0.0-0.7); Absolute Lymphocyte Count 2.93 10^3/uL (1.2-3.4); Absolute Monocyte Count 0.65 10^3/uL (0.1-0.8); Absolute Neutrophil Count 5.24 10^3/uL (1.2-6.7); Basophils % 0.5; HCT 52.3 % (40.0-50.0); HGB 18.6 g/dL (13.5-17.5); Immature Grans % 0.5; Lymphocytes % 31.8; MCH 31.3 pg (27.0-33.0); MCHC 35.6 % (32.0-36.0); MCV 88 fL (80-95); MPV 10.7 fL (8.0-11.0); Monocytes % 7.1; Neutrophils % 57.1; Platelet Count 254 10^3/uL (130-400); RBC 5.94 10^6/uL (4.36-5.78); RDW-SD 39.3 fL
== END 2023-09-30 05:09 | disposition home or self-care (01) ==
LOC: LBO 05:08
PROVIDERS: PCP Family Medicine; Visit Provider Registered Nurse
DX: F25.0 Schizoaffective disorder, bipolar type (principal); Z79.899 Other long term (current) drug therapy
CPT/HCPCS: 36415; 85025

== ENCOUNTER 2023-10-07 05:17 | Outpatient (CLI) | payer MEDICARE, MEDICAID, SELFPAY ==
[2023-10-07 10:54] LABS: Abs Immature Grans 0.06 10^3/uL (0.0-0.06); Absolute Basophil Count 0.07 10^3/uL (0.0-0.2); Absolute Eosinophil Count 0.28 10^3/uL (0.0-0.7); Absolute Lymphocyte Count 3.01 10^3/uL (1.2-3.4); Absolute Monocyte Count 0.66 10^3/uL (0.1-0.8); Absolute Neutrophil Count 5.14 10^3/uL (1.2-6.7); Basophils % 0.8 %; HCT 52.2 % (40.0-50.0); HGB 17.6 g/dL (13.5-17.5); Immature Grans % 0.7 %; Lymphocytes % 32.6 %; MCHC 33.7 % (32.0-36.0); MCV 92 fL (80-95); MPV 10.8 fL (8.0-11.0); Monocytes % 7.2 %; Neutrophils % 55.7 %; Platelet Count 232 10^3/uL (130-400); RBC 5.68 10^6/uL (4.36-5.78); RDW-SD 40.7 fL; WBC 9.22 10^3/uL (4.4-10.8)
== END 2023-10-07 05:18 | disposition home or self-care (01) ==
LOC: LBO 05:18
PROVIDERS: PCP Family Medicine; Visit Provider Registered Nurse
DX: F25.0 Schizoaffective disorder, bipolar type (principal); Z79.899 Other long term (current) drug therapy
CPT/HCPCS: 36415; 85025

== ENCOUNTER 2023-10-14 05:18 | Outpatient (CLI) | payer MEDICARE, MEDICAID, SELFPAY ==
[2023-10-14 11:23] LABS: Abs Immature Grans 0.08 10^3/uL (0.0-0.06); Absolute Basophil Count 0.05 10^3/uL (0.0-0.2); Absolute Eosinophil Count 0.29 10^3/uL (0.0-0.7); Absolute Lymphocyte Count 3.02 10^3/uL (1.2-3.4); Absolute Monocyte Count 0.74 10^3/uL (0.1-0.8); Absolute Neutrophil Count 5.26 10^3/uL (1.2-6.7); Basophils % 0.5 %; Eosinophils % 3.1 %; HCT 49.9 % (40.0-50.0); HGB 17.6 g/dL (13.5-17.5); Immature Grans % 0.8 %; MCH 31.6 pg (27.0-33.0); MCHC 35.3 % (32.0-36.0); MCV 90 fL (80-95); MPV 11.2 fL (8.0-11.0); Monocytes % 7.8 %; Neutrophils % 55.8 %; Platelet Count 252 10^3/uL (130-400); RBC 5.57 10^6/uL (4.36-5.78); RDW 12.2 % (11.8-14.1); RDW-SD 39.9 fL; WBC 9.44 10^3/uL (4.4-10.8)
== END 2023-10-14 05:19 | disposition home or self-care (01) ==
LOC: LBO 05:18
PROVIDERS: PCP Family Medicine; Visit Provider Registered Nurse
DX: F25.0 Schizoaffective disorder, bipolar type (principal); Z79.899 Other long term (current) drug therapy
CPT/HCPCS: 36415; 85025

== ENCOUNTER 2023-10-21 05:05 | Outpatient (CLI) | payer MEDICARE, MEDICAID, SELFPAY ==
[2023-10-21 11:08] LABS: Abs Immature Grans 0.09 10^3/uL (0.0-0.06); Absolute Basophil Count 0.07 10^3/uL (0.0-0.2); Absolute Eosinophil Count 0.29 10^3/uL (0.0-0.7); Absolute Lymphocyte Count 2.94 10^3/uL (1.2-3.4); Absolute Monocyte Count 0.67 10^3/uL (0.1-0.8); Absolute Neutrophil Count 5.45 10^3/uL (1.2-6.7); Basophils % 0.7 %; HCT 54.3 % (40.0-50.0); HGB 18.6 g/dL (13.5-17.5); Immature Grans % 0.9 %; Lymphocytes % 30.9 %; MCH 31.4 pg (27.0-33.0); MCHC 34.3 % (32.0-36.0); MCV 92 fL (80-95); MPV 10.9 fL (8.0-11.0); Neutrophils % 57.5 %; Platelet Count 262 10^3/uL (130-400); RBC 5.93 10^6/uL (4.36-5.78); RDW 12.1 % (11.8-14.1); RDW-SD 40.8 fL; WBC 9.51 10^3/uL (4.4-10.8)
== END 2023-10-21 05:06 | disposition home or self-care (01) ==
LOC: LBO 05:05
PROVIDERS: PCP Family Medicine; Visit Provider Registered Nurse
DX: F25.0 Schizoaffective disorder, bipolar type (principal); Z79.899 Other long term (current) drug therapy
CPT/HCPCS: 36415; 85025

== ENCOUNTER 2023-10-28 05:00 | Outpatient (CLI) | payer MEDICARE, MEDICAID, SELFPAY ==
[2023-10-28 11:42] LABS: Abs Immature Grans 0.12 10^3/uL (0.0-0.06); Absolute Basophil Count 0.08 10^3/uL (0.0-0.2); Absolute Eosinophil Count 0.41 10^3/uL (0.0-0.7); Absolute Lymphocyte Count 2.84 10^3/uL (1.2-3.4); Absolute Monocyte Count 0.79 10^3/uL (0.1-0.8); Absolute Neutrophil Count 5.47 10^3/uL (1.2-6.7); Basophils % 0.8 %; Eosinophils % 4.2 %; HCT 53.4 % (40.0-50.0); HGB 18.4 g/dL (13.5-17.5); Immature Grans % 1.2 %; Lymphocytes % 29.2 %; MCH 31.1 pg (27.0-33.0); MCHC 34.5 % (32.0-36.0); MCV 90 fL (80-95); MPV 10.8 fL (8.0-11.0); Monocytes % 8.1 %; Neutrophils % 56.5 %; Platelet Count 267 10^3/uL (130-400); RBC 5.91 10^6/uL (4.36-5.78); RDW 12.1 % (11.8-14.1); RDW-SD 39.8 fL; WBC 9.71 10^3/uL (4.4-10.8)
== END 2023-10-28 05:01 | disposition home or self-care (01) ==
LOC: LBO 05:00
PROVIDERS: PCP Family Medicine; Visit Provider Registered Nurse
DX: F25.0 Schizoaffective disorder, bipolar type (principal); Z79.899 Other long term (current) drug therapy
CPT/HCPCS: 36415; 85025

== ENCOUNTER 2023-11-04 05:14 | Outpatient (CLI) | payer MEDICARE, MEDICAID, SELFPAY ==
[2023-11-04 11:01] LABS: Abs Immature Grans 0.11 10^3/uL (0.0-0.06); Absolute Basophil Count 0.08 10^3/uL (0.0-0.2); Absolute Eosinophil Count 0.26 10^3/uL (0.0-0.7); Absolute Lymphocyte Count 2.28 10^3/uL (1.2-3.4); Absolute Monocyte Count 0.81 10^3/uL (0.1-0.8); Absolute Neutrophil Count 7.55 10^3/uL (1.2-6.7); Basophils % 0.7 %; Eosinophils % 2.3 %; Lymphocytes % 20.6 %; MCH 31.2 pg (27.0-33.0); MCV 92 fL (80-95); MPV 10.2 fL (8.0-11.0); Monocytes % 7.3 %; Neutrophils % 68.1 %; Platelet Count 232 10^3/uL (130-400); RBC 5.73 10^6/uL (4.36-5.78); RDW 12.4 % (11.8-14.1); RDW-SD 42.1 fL; WBC 11.09 10^3/uL (4.4-10.8)
[2023-11-04 11:03] LABS: HGB 17.9 g/dL (13.5-17.5)
[2023-11-04 11:04] LABS: HCT 52.6 % (40.0-50.0)
== END 2023-11-04 05:15 | disposition home or self-care (01) ==
LOC: LBO 05:14
PROVIDERS: PCP Family Medicine; Visit Provider Registered Nurse
DX: F25.0 Schizoaffective disorder, bipolar type (principal); Z79.899 Other long term (current) drug therapy
CPT/HCPCS: 36415; 85025

== ENCOUNTER 2023-11-12 14:54 | Outpatient (CLI) | payer MEDICARE, MEDICAID, SELFPAY ==
[2023-11-12 12:50] LABS: Abs Immature Grans 0.08 10^3/uL (0.0-0.06); Absolute Basophil Count 0.06 10^3/uL (0.0-0.2); Absolute Lymphocyte Count 2.75 10^3/uL (1.2-3.4); Absolute Monocyte Count 0.82 10^3/uL (0.1-0.8); Absolute Neutrophil Count 5.12 10^3/uL (1.2-6.7); Basophils % 0.7 %; Eosinophils % 3.3 %; HCT 52.9 % (40.0-50.0); HGB 18.6 g/dL (13.5-17.5); Immature Grans % 0.9 %; Lymphocytes % 30.1 %; MCH 31.5 pg (27.0-33.0); MCHC 35.2 % (32.0-36.0); MCV 90 fL (80-95); MPV 11.3 fL (8.0-11.0); Platelet Count 256 10^3/uL (130-400); RBC 5.91 10^6/uL (4.36-5.78); RDW 12.4 % (11.8-14.1); RDW-SD 41.1 fL; WBC 9.13 10^3/uL (4.4-10.8)
== END 2023-11-12 14:55 | disposition home or self-care (01) ==
LOC: LBO 14:55
PROVIDERS: PCP Family Medicine; Visit Provider Registered Nurse
DX: F25.0 Schizoaffective disorder, bipolar type (principal); Z79.899 Other long term (current) drug therapy
CPT/HCPCS: 36415; 85025

== ENCOUNTER 2023-11-25 04:50 | Outpatient (CLI) | payer MEDICARE, MEDICAID, SELFPAY ==
[2023-11-25 10:40] LABS: Abs Immature Grans 0.08 10^3/uL (0.0-0.06); Absolute Basophil Count 0.07 10^3/uL (0.0-0.2); Absolute Eosinophil Count 0.27 10^3/uL (0.0-0.7); Absolute Lymphocyte Count 2.72 10^3/uL (1.2-3.4); Absolute Monocyte Count 0.87 10^3/uL (0.1-0.8); Absolute Neutrophil Count 5.66 10^3/uL (1.2-6.7); Basophils % 0.7 %; Eosinophils % 2.8 %; HCT 56.2 % (40.0-50.0); Immature Grans % 0.8 %; Lymphocytes % 28.1 %; MCV 91 fL (80-95); MPV 10.4 fL (8.0-11.0); Neutrophils % 58.6 %; Platelet Count 270 10^3/uL (130-400); RBC 6.17 10^6/uL (4.36-5.78); RDW 12.4 % (11.8-14.1); RDW-SD 41.3 fL; WBC 9.67 10^3/uL (4.4-10.8)
[2023-11-25 12:15] LABS: HGB 19.1 g/dL (13.5-17.5)
== END 2023-11-25 04:51 | disposition home or self-care (01) ==
LOC: LBO 04:50
PROVIDERS: PCP Family Medicine; Visit Provider Registered Nurse
DX: F25.0 Schizoaffective disorder, bipolar type (principal); Z79.899 Other long term (current) drug therapy
CPT/HCPCS: 36415; 85025

== ENCOUNTER 2023-12-01 03:21 | Outpatient (CLI) | payer MEDICARE, MEDICAID, SELFPAY ==
[2023-12-01 14:17] LABS: Abs Immature Grans 0.08 10^3/uL (0.0-0.06); Absolute Basophil Count 0.07 10^3/uL (0.0-0.2); Absolute Eosinophil Count 0.37 10^3/uL (0.0-0.7); Absolute Lymphocyte Count 2.57 10^3/uL (1.2-3.4); Absolute Monocyte Count 0.73 10^3/uL (0.1-0.8); Absolute Neutrophil Count 6.14 10^3/uL (1.2-6.7); Basophils % 0.7 %; Eosinophils % 3.7 %; HCT 52.8 % (40.0-50.0); HGB 17.7 g/dL (13.5-17.5); Immature Grans % 0.8 %; Lymphocytes % 25.8 %; MCH 31.1 pg (27.0-33.0); MCHC 33.5 % (32.0-36.0); MCV 93 fL (80-95); MPV 10.6 fL (8.0-11.0); Monocytes % 7.3 %; Neutrophils % 61.7 %; Platelet Count 237 10^3/uL (130-400); RDW 12.8 % (11.8-14.1); RDW-SD 43.2 fL; WBC 9.96 10^3/uL (4.4-10.8)
== END 2023-12-01 03:22 | disposition home or self-care (01) ==
LOC: LBO 03:22
PROVIDERS: PCP Family Medicine; Visit Provider Registered Nurse
DX: F25.0 Schizoaffective disorder, bipolar type (principal); Z79.899 Other long term (current) drug therapy
CPT/HCPCS: 36415; 85025

== ENCOUNTER → 2023-12-08 13:55 | Outpatient (BNVA) | payer MEDICARE, MEDICAID, SELFPAY | PROVIDERS: PCP Family Medicine; Referring Provider Family Medicine; Visit Provider Podiatrist | DX: I70.203 Unspecified atherosclerosis of native arteries of extremities, bilateral legs; E11.9 Type 2 diabetes mellitus without complications; B35.1 Tinea unguium; L60.3 Nail dystrophy; M79.674 Pain in right toe(s); M79.675 Pain in left toe(s) | CPT/HCPCS: 11721 ==

== ENCOUNTER 2023-12-16 02:05 | Outpatient (CLI) | payer MEDICARE, MEDICAID, SELFPAY ==
[2023-12-16 11:12] LABS: Abs Immature Grans 0.06 10^3/uL (0.0-0.06); Absolute Basophil Count 0.07 10^3/uL (0.0-0.2); Absolute Eosinophil Count 0.33 10^3/uL (0.0-0.7); Absolute Lymphocyte Count 2.36 10^3/uL (1.2-3.4); Absolute Monocyte Count 0.76 10^3/uL (0.1-0.8); Absolute Neutrophil Count 8.12 10^3/uL (1.2-6.7); Basophils % 0.6 %; Eosinophils % 2.8 %; HCT 54.7 % (40.0-50.0); HGB 18.8 g/dL (13.5-17.5); Immature Grans % 0.5 %; Lymphocytes % 20.2 %; MCH 30.9 pg (27.0-33.0); MCHC 34.4 % (32.0-36.0); MCV 90 fL (80-95); MPV 10.6 fL (8.0-11.0); Monocytes % 6.5 %; Neutrophils % 69.4 %; Platelet Count 260 10^3/uL (130-400); RDW 12.7 % (11.8-14.1); RDW-SD 41.2 fL
[2023-12-16 11:37] LABS: Diff Comment RBC Morph Reviewed
[2023-12-16 11:38] LABS: RBC Morphology Normal
[2023-12-16 11:39] LABS: RBC 6.09 10^6/uL (4.36-5.78)
== END 2023-12-16 02:06 | disposition home or self-care (01) ==
LOC: LBO 02:05
PROVIDERS: PCP Family Medicine; Visit Provider Registered Nurse
DX: F25.0 Schizoaffective disorder, bipolar type (principal); Z79.899 Other long term (current) drug therapy
CPT/HCPCS: 36415; 85025

== ENCOUNTER 2023-12-21 15:58 | Inpatient (IN) | payer MEDICARE, MEDICAID, SELFPAY ==
[2023-12-21] VITALS (52 sets, daily range): BP systolic 108–138; BP diastolic 53–81; PULSE 58–100; RESP 14–31; TEMP 37.7; O2SAT 90–94
--- NOTE | 2023-12-21 09:16 | DI.RAD_ITS ---
Exam(s) XR FOOT LT COMPLETE EXAM: XR FOOT LT COMPLETE CLINICAL HISTORY: r/o osteomyelitis; cellulitis. TECHNIQUE: 2D digital imaging was performed. Three views. COMPARISON: CR LEFT GREAT TOE from 07/14/2014 FINDINGS: BONES: No acute fracture is present. No bony destructive lesion is seen. JOINTS: No dislocation present. SOFT TISSUE: There is deformity at the nail of the great toe. IMPRESSION: No plain film evidence of osteomyelitis. DATA REPOSITORY: RADIATION DOSE DELIVERED:
[2023-12-21 18:17] LABS: Absolute Eosinophil Count 0.18 10^3/uL (0.0-0.7); Absolute Lymphocyte Count 2.25 10^3/uL (1.2-3.4); Absolute Monocyte Count 1.14 10^3/uL (0.1-0.8); Absolute Neutrophil Count 8.76 10^3/uL (1.2-6.7); Basophils % 0.6 %; Eosinophils % 1.4 %; HCT 53.5 % (40.0-50.0); HGB 18.6 g/dL (13.5-17.5); Immature Grans % 0.8 %; MCH 31.3 pg (27.0-33.0); MCHC 34.8 % (32.0-36.0); MCV 90 fL (80-95); MPV 10.8 fL (8.0-11.0); Monocytes % 9.1 %; Neutrophils % 70.1 %; Platelet Count 258 10^3/uL (130-400); RBC 5.95 10^6/uL (4.36-5.78); RDW 12.6 % (11.8-14.1); RDW-SD 41.5 fL
[2023-12-21 18:19] LABS: Absolute Basophil Count 0.08 10^3/uL (0.0-0.2); ESR 13 mm/hr (0-20)
[2023-12-21 18:23] LABS: TCO2 (Venous) 30 mmol/L (24-29); pCO2 (Venous) 45 mmHg (41-51); pH (Venous) 7.41 (7.31-7.41); pO2 (Venous) 37 mmHg
[2023-12-21] MEDS: Lactated Ringers 1,000 ML 1000 ML IV (18:23)
[2023-12-21 18:24] LABS: BE (Venous) 4 mmol/L (-2-3); HCO3 (Venous) 29 mmol/L (23-28); O2 Sat (Venous) 71 %
[2023-12-21 18:25] LABS: Lactate 2.1 mmol/L (0.9-1.7)
--- NOTE | 2023-12-21 18:26 | ED.GENADUL_ITS ---
Discharge Plan Discharge Details Chief Complaint: Cellulitis Primary Care Provider: Nisha Carrillo ED Provider: Nevaeh Godfrey Home Meds and New Rx's Prescriptions: No Action magnesium chloride 64 mg magnesium tablet 64 mg PO DAILY atorvastatin 10 mg tablet 10 mg PO DAILY cefpodoxime 200 mg tablet 200 mg PO BID Rx Instructions: must administer with a meal/food melatonin 3 mg capsule 3 mg PO HS PRN nicotine 14 mg/24 hr patch 24 hour 1 patch transdermal DAILY nicotine 21 mg/24 hr patch 24 hour 1 patch transdermal DAILY senna 8.6 mg capsule 8.6 mg PO BID triamcinolone acetonide 0.1 % cream 1 applic topical BID metformin 1,000 mg tablet 2,000 mg PO DAILY Patient Comments: unsure of dose cyanocobalamin (vitamin B-12) 1,000 mcg capsule 1,000 mcg PO DAILY ergocalciferol (vitamin D2) 1,250 mcg (50,000 unit) capsule 1,250 mcg PO .twice a week Invega Sustenna 156 mg/mL syringe 156 mg IM QMONTH Jardiance 25 mg tablet 25 mg PO DAILY levothyroxine 125 mcg tablet 125 mcg PO DAILY polyethylene glycol 3350 [Miralax] 17 gram/dose powder 17 g PO DAILY PRN docusate sodium [Stool Softener] 100 mg capsule 200 mg PO BID cholecalciferol (vitamin D3) 50 mcg (2,000 unit) capsule 50 mcg PO DAILY urea 40 % cream 1 applic topical DAILY Qty: 28.35 3RF Rx Instructions: Apply 1gram to thickened toenails once daily - at opposite time of day from ketoconazole. ketoconazole 2 % cream 1 applic topical DAILY Qty: 30 11RF Rx Instructions: Apply 1gram to toenails once daily ropinirole 1 mg Tablet 1 mg PO DIRECTED Rx Instructions: DAILY at 1600 potassium chloride 20 mEq tablet extended release 10 meq PO DAILY clozapine 100 mg tablet 100 mg PO DAILY AM clozapine 200 mg tablet 200 mg PO HS furosemide 40 mg tablet 40 mg PO QAM Xarelto 20 mg tablet 20 mg PO DAILY metoprolol succinate 25 mg Tablet Extended Release 24 Hr 12.5 mg PO DAILY Qty: 30 0RF Patient Comments: unsure of dose HPI General Date/Time Provider Initiated Documentation: 12/21/23 16:12 . HPI Narrative: Judd is a 63-year-old male with history of A-fib on anticoagulation, HTN, hypothyroidism, T2DM, PAD, and neuropathy who presents to the emergency [facility] for evaluation of right foot pain and swelling. He reports he developed pain to his great toe and second toe over the weekend, denies associated trauma. Denies associated fever/chills, abdominal pain, change in p.o. intake, change in bowel or bladder function, distal numbness/tingling, pain with ambulation (though he has been limping). He was seen by podiatry 2 weeks ago on 12/08/2023. Denies history of CHF or recent antibiotic use. Physical exam remarkable for significant swelling and warmth to the dorsum of the right foot, with bruising and hemorrhagic bullae noted to the dorsal aspect of the great toe and second toe. Sensation is intact distally. No swelling above ankle. Easy work of breathing, lung sounds clear bilaterally. Normal heart sounds. Moist mucous membranes. Patient noted to be mildly tachycardic and tachypneic upon arrival; mild fever with temp 37.7 noted. DDx includes was not limited to: Cellulitis, osteomyelitis, sepsis. Low suspicion for DVT based on current anticoagulation with Eliquis. I independently interpreted the following tests: CBC notable for mild leukocytosis, white cell count 12.5. Lactate 2.1. VBG reassuring. CT performed, no gas seen in soft tissues, although edema of the dorsum of the foot noted, consistent with cellulitis. No periosteal reaction suggesting osteomyelitis at this time. While in the emergency department Peter received 1 L LR for rehydration; tachycardia resolved after this bolus; as he is currently on furosemide, concern for history of CHF (pt is not a good historian, unable to provide medical histo ry and does have h/o NSTEMI). Vancomycin and cefepime given for cellulitis. Plan for inpatient admission for IV antibiotics and podiatry consultation as needed. Reviewed case with Dr. Whitten, who is agreeable with plan of care. Related Data Home Medications ?Medication ?Instructions ?Recorded ?Confirmed ropinirole 1 mg tablet 1 mg PO DIRECTED 03/27/19 12/21/23 metoprolol succinate 25 mg 12.5 mg (1/2 x 25 mg) PO DAILY #30 03/30/22 12/21/23 tablet,extended release 24 hr tabs potassium chloride 20 mEq 10 meq PO DAILY 06/20/22 12/21/23 tablet,extended release clozapine 100 mg tablet 100 mg PO DAILY AM 09/03/23 12/21/23 clozapine 200 mg tablet 200 mg PO HS 09/03/23 12/21/23 furosemide 40 mg tablet 40 mg PO QAM 09/03/23 12/21/23 rivaroxaban 20 mg tablet (Xarelto) 20 mg PO DAILY 09/03/23 12/21/23 cholecalciferol (vitamin D3) 50 50 mcg PO DAILY 09/29/23 12/21/23 mcg (2,000 unit) capsule cyanocobalamin (vitamin B-12) 1,000 mcg PO DAILY 09/29/23 12/21/23 1,000 mcg capsule docusate sodium 100 mg capsule 200 mg PO BID 09/29/23 12/21/23 (Stool Softener) empagliflozin 25 mg tablet 25 mg PO DAILY 09/29/23 12/21/23 (Jardiance) ergocalciferol (vitamin D2) 1,250 1,250 mcg PO .twice a week 09/29/23 12/21/23 mcg (50,000 unit) capsule levothyroxine 125 mcg tablet 125 mcg PO DAILY 09/29/23 12/21/23 metformin 1,000 mg tablet 2,000 mg PO DAILY 09/29/23 12/21/23 paliperidone palmitate 156 mg/mL 156 mg IM QMONTH 09/29/23 12/21/23 intramuscular syringe ([facility] polyethylene glycol 3350 17 17 g PO DAILY PRN 09/29/23 12/21/23 gram/dose oral powder (Miralax) atorvastatin 10 mg tablet 10 mg PO DAILY 10/28/23 12/21/23 cefpodoxime 200 mg tablet 200 mg PO BID 10/28/23 12/21/23 magnesium chloride 64 mg 64 mg PO DAILY 10/28/23 12/21/23 (magnesium chloride) tablet melatonin 3 mg capsule 3 mg PO HS PRN 10/28/23 12/21/23 nicotine 14 mg/24 hr daily 1 patch transdermal DAILY 10/28/23 12/21/23 transdermal patch nicotine 21 mg/24 hr daily 1 patch transdermal DAILY 10/28/23 12/21/23 transdermal patch sennosides 8.6 mg capsule (senna) 8.6 mg PO BID 10/28/23 12/21/23 triamcinolone acetonide 0.1 % 1 applic topical BID 10/28/23 12/21/23 topical cream ketoconazole 2 % topical cream 1 applic topical DAILY #30 grams 12/14/23 12/21/23 urea 40 % topical cream 1 applic topical DAILY dystrophic, 12/14/23 12/21/23 mycotic toenails #28.35 grams Previous Rx's ?Medication ?Instructions ?Recorded metoprolol succinate 25 mg 12.5 mg (1/2 x 25 mg) PO DAILY #30 03/30/22 tablet,extended release 24 hr tabs ketoconazole 2 % topical cream 1 applic topical DAILY #30 grams 12/14/23 urea 40 % topical cream 1 applic topical DAILY dystrophic, 12/14/23 mycotic toenails #28.35 grams Allergies Allergy/AdvReac Type Severity Reaction Status Date / Time Penicillins AdvReac Intermediate black out Unverified 12/21/23 22:11 gabapentin AdvReac Mild Headache Unverified 12/21/23 22:11 niacin AdvReac Mild turn red Unverified 12/21/23 22:11 General Stated Complaint: Cellulitis MARY: 2 Review of Systems Narrative: see HPI Exam Const General: cooperative, comfortable and no acute distress Nutritional Appearance: average body habitus Resp Effort & Inspection: normal respiratory effort and able to speak in complete sentences Auscultation: clear to auscultation bilaterally Cardio Rate: regular rate Rhythm: regular rhythm GI Inspection: normal to inspection Palpation: soft and nontender Extrem Right lower extremity: full ROM, ankle Details: normal to inspection and foot Details: normal capillary refill, abnormal to inspection (hemorrhagic bullae noted to 1st and 2nd toes, diffuse ecchymosis and swelling to 1st and 2nd toes), tenderness, warmth Location: of the dorsal foot, edema Location: of the dorsal foot, ecchymosis (1st and 2nd toes) and vascular exam Details: dorsalis pedis pulse present; no laceration Psych Affect: blunted (consistent with schizoaffective disorder) Course Vital Signs Vital signs: Vital Signs Temperature 37.7 C H 12/21/23 16:12 Pulse 100 H 12/21/23 16:12 Respiratory Rate 14 12/21/23 16:12 Blood Pressure 125/75 12/21/23 16:12 Pulse Oximetry 94 12/21/23 16:12 Temperature 37.7 C H 12/21/23 16:16 Temperature Source Oral 12/21/23 16:16 Pulse 74 12/21/23 18:15 Pulse 85 12/21/23 18:20 Respiratory Rate 23 12/21/23 18:20 Respiratory Effort Normal 12/21/23 18:20 Blood Pressure 138/77 12/21/23 18:15 Blood Pressure Mean 92 12/21/23 18:15 Pulse Oximetry 90 L 12/21/23 18:20 Oxygen Delivery Method Room Air 12/21/23 16:16 Oxygen Flow Rate 0 12/21/23 16:16 Pain Level 5 12/21/23 16:16 Lab/Test Results Lab/Test Results: 12/21/23 18:06 Blood Blood Culture - Pending 12/21/23 18:06 Blood Blood Culture - Pending Laboratory Tests Range/Units 12/21/23 18:06 WBC (4.4-10.8) 10^3/uL 12.50 H RBC (4.36-5.78) 10^6/uL 5.95 H Hgb (13.5-17.5) g/dL 18.6 H Hct (40.0-50.0) % 53.5 H MCV (80-95) fL 90 MCH (27.0-33.0) pg 31.3 MCHC (32.0-36.0) % 34.8 RDW (11.8-14.1) % 12.6 Plt Count (130-400) 10^3/uL 258 MPV (8.0-11.0) fL 10.8 Immature Gran % % 0.8 Neutrophils % % 70.1 Lymphocytes % % 18.0 Monocytes % % 9.1 Eosinophils % % 1.4 Basophils % % 0.6 Nucleated RBC % (0.0-0.3) % 0.0 Absolute Neutrophils (1.2-6.7) 10^3/uL 8.76 H Absolute Lymphocytes (1.2-3.4) 10^3/uL 2.25 Absolute Monocytes (0.1-0.8) 10^3/uL 1.14 H Absolute Eosinophils (0.0-0.7) 10^3/uL 0.18 Absolute Basophils (0.0-0.2) 10^3/uL 0.08 ESR (0-20) mm/hr 13 VBG pH (7.31-7.41) 7.41 VBG pCO2 (41-51) mmHg 45 VBG pO2 mmHg 37 VBG HCO3 (23-28) mmol/L 29 H VBG Total CO2 (24-29) mmol/L 30 H VBG O2 Saturation % 71 VBG Base Excess (-2-3) mmol/L 4 H VBG Lactate (0.9-1.7) mmol/L 2.1 H* Medical Decision Making Quality:SDOH Health Related Social Needs: Health related social needs inadequate housing, risk o f homeless PFSH All Active Problems (Updated 12/21/23 @ 22:32 by Julius Calderon) Fracture of right great toe (Acute) Charcot joint of ankle (Acute) Cellulitis in diabetic foot (Acute) Nail dystrophy (Acute) Onychomycosis (Acute) Atherosclerosis of artery of both lower extremities (Acute) Very low level of personal hygiene (Acute) Diabetes mellitus, type 2 (Chronic) Disorder of the skin and subcutaneous tissue, unspecified (Acute) Encephalopathy (Acute) Urge incontinence (Acute) Polycythemia (Chronic) Hypomagnesemia (Acute) Schizophrenia (Chronic) Weight gain (Acute 10/22/16) Screening for colorectal cancer (Acute) Heel ulcer (Acute) Medication monitoring encounter (Acute) Acute ischemic stroke (Acute) C1 cervical fracture (Acute) Chronic schizophrenia (Chronic) Ambulatory dysfunction (Acute) Alteration in thought content as evidenced by delusions (Acute) BRENNEN (acute kidney injury) (Acute) Medical History Dementia History of malignant neoplasm of skin Edema Blood in urine Steatosis of liver Constipation Community acquired pneumonia Venous stasis Nicotine dependence Bipolar disorder Schizoaffective disorder Pneumonia HTN (hypertension) (02/04/16) 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 (10/22/16) Facial basal cell cancer (02/04/16) OAB (overactive bladder) Diverticulosis Chronic constipation Hypothyroidism RLS (restless legs syndrome) Atrial enlargement, bilateral BCC (basal cell carcinoma of skin) Urinary incontinence Afib Vitreous floaters of right eye Non-ST elevation NE (NSTEMI) Pneumonia Obesity Surgical History Hx of cholecystectomy Tonsillectomy Hydrocelectomy Excision, Lipoma Colonoscopy - MAC (01/25/16) 2010 Family History Mother Alcohol abuse Father Heart disease FH: mental illness Brother Alcohol abuse Paternal Grandfather Heart disease Maternal Grandfather Diabetes Social History Smoking/Tobacco Use Status: Current every day Tobacco Type: cigarettes Smoking risk assessment performed?: Yes Alcohol Intake: current Alcohol Intake frequency: holidays/special occasions only Alcohol type: beer and hard liquor Drug use: Current Sobriety Substance use type: does not use Housing: apartment Current gender identity: male Do you feel safe at home: Yes Do you feel safe in your relationship?: Yes
[2023-12-21 18:37] LABS: ALT 37 U/L (16-63); AST 14 U/L (15-37); Albumin 3.9 g/dL (3.4-5.0); Alkaline Phosphatase 116 U/L (46-116); Anion Gap 10.2 mmol/L (3-11); BUN 19 mg/dL (7-18); Bilirubin, Total 0.45 mg/dL (0.2-1.0); C-Reactive Protein 0.89 mg/dL (<or=0.5); CO2 30.8 mmol/L (21.0-32.0); Calcium 10.3 mg/dL (8.5-10.1); Chloride 103 mmol/L (98-107); Estimated GFR 83.52 (mL/min/1.73m2); Glucose 208 mg/dL (74-106); Potassium 3.7 mmol/L (3.5-5.1); Sodium 144 mmol/L (136-145)
--- NOTE | 2023-12-21 18:43 | DI.RAD_ITS ---
Exam(s) XR FOOT RT COMPLETE EXAM: XR FOOT RT COMPLETE CLINICAL HISTORY: r/o osteomyelitis; cellulitis. TECHNIQUE: 2D digital imaging was performed. Three views. COMPARISON: CR LEFT GREAT TOE from 07/14/2014 FINDINGS: BONES: No acute fracture is present. No bony destructive lesion is seen. JOINTS: No dislocation present. SOFT TISSUE: There is deformity at the nail of the great toe. IMPRESSION: No plain film evidence of osteomyelitis. DATA REPOSITORY: RADIATION DOSE DELIVERED:
--- NOTE | 2023-12-21 19:15 | DI.CT_ITS ---
Exam(s) CT LOWER EXTREMITY RT W EXAM: CT LOWER EXTREMITY RT W CLINICAL HISTORY: R foot infection, concern for gas. TECHNIQUE: Imaging Protocol: Axial computed tomography images with coronal and sagittal reformatted images were created and reviewed. CONTRAST MATERIAL: Intravenous: Omnipaque 350 Contrast volume:100 contrast route:IV - COMPARISON: CR XR FOOT RT COMPLETE from 12/21/2023 . This is the opposite side. FINDINGS: OSSEOUS: There are fracture lines evident in the distal aspect of the great toe proximal phalanx whic h violate the interphalangeal joint. There is also a subacute appearing oblique nondisplaced fractur e in the base of the proximal phalanx of the 2nd toe. No other toe fractures. There is moderate deg enerative change in the metatarsophalangeal joint of the great toe and MTP joint of the 2nd toe. The re is a healed fracture deformity evident in the distal fibula. No evidence of osteomyelitis. SOFT TISSUES: There is edema in the subcutaneous soft tissues along the plantar and dorsal aspects of the foot but no distinct fluid collection. Is no gas in the soft tissues of the right foot. No dis tinct ulcer craters. IMPRESSION: Acute/subacute appearing fractures in the distal aspect of the proximal phalanx of the great toe as w ell as in the base of the proximal phalanx of the 2nd toe. Significant degenerative changes in the great toe metatarsophalangeal joint. Soft tissue edema but without a distinct fluid collection nor gas in the soft tissues. No obvious ul cer. No vascular calcification seen in the foot. No findings of advanced Charcot arthropathy in the midfoot. Plantar arch is maintained. First read by [facility] Final report called by myself to the hospitalist ([id number]) 12/22/2023 at 9:35 a.m. RADIATION DOSE DELIVERED: 325.88mGy.cm Total DLP DATA REPOSITORY: All CT scans at this facility are submitted to the National Radiology Data Registry (NRDR) Dose Index Registry (DIR) with the [employer] ([employer]). RADIATION OPTIMIZATION: All CT scans at this facility use at least one of these dose optimization te chniques: automated exposure control; mA and/or kV adjustment per patient size (includes targeted exa ms where dose is matched to clinical indication); or iterative reconstruction.
[2023-12-21] MEDS: Omnipaque 350 MG/ML 100 ML BTL IJ (19:42)
[2023-12-21] MEDS: Normal Saline Flush 10 ML SYR IVP (19:43)
[2023-12-21] MEDS: Normal Saline - Diluent 50 ML VIAL IJ (19:43)
[2023-12-21 20:33] LABS: Procalcitonin < 0.1 ng/mL
--- NOTE | 2023-12-21 21:34 | DI.VRAD_ITS ---
PROCEDURE INFORMATION: Exam: CT Right Lower Extremity With Contrast, Foot Exam date and time: 12/21/2023 7:48 PM Age: 63 years old Clinical indication: Pain; Right; Patient HX: R foot infection, concern for gas TECHNIQUE: Imaging protocol: CT of the right lower extremity with intravenous contrast was performed. Exam focused on the foot. Radiation optimization: All CT scans at this facility use at least one of these dose optimization techniques: automated exposure control; mA and/or kV adjustment per patient size (includes targeted exams where dose is matched to clinical indication); or iterative reconstruction. Contrast material: ONIPAQUE 350; Contrast volume: 100 ml; Contrast route: INTRAVENOUS (IV); COMPARISON: CR XR FOOT RT COMPLETE 21/12/2023 18:34 FINDINGS: Bones/joints: The joints maintain anatomic alignment.Fracture deformity of the distal tibia and fibula of unknown acuity. Edema in the subcutaneous soft tissues along the dorsum of the foot, area of the metatarsals, along the plantar fascia and medial adductor muscles of the foot. There are hammer toes of the 2nd - 5th digits. Intra-articular fracture of the head of the 1st proximal phalanx that appears acute or subacute. Soft tissues: No gas is seen in soft tissues. IMPRESSION: 1. No gas is seen in soft tissues of the right foot. 2. Edema in the subcutaneous soft tissues along the dorsum of the foot, area of the metatarsals, along the plantar fascia and medial adductor muscles of the foot, that in the appropriate clinical setting, is consistent with cellulitis. No periosteal reaction to suggest osteomyelitis at this time. 3. Fracture deformity of the distal tibia and fibula of unknown acuity. 4. Intra-articular fracture of the head of the 1st proximal phalanx that appears acute or subacute. Dictated and Authenticated by: Dustin Ortez MD. Ordering:SAVANNA Herring MD
[2023-12-21] MEDS: CEFEPIME 2 GM in Normal Saline 100 ML IVPB (21:53)
--- NOTE | 2023-12-21 22:20 | HPE_ITS ---
Date of service: 12/21/23 Time of Service: 22:20 Assessment and Plan Assessment and plan (1) Cellulitis in diabetic foot: Start date: 12/21/23 Status: Acute Assessment and plan: This is a 63-year-old gentleman who has diabetes poorly controlled and obesity who is seen in the recent past for fracture right ankle which was repaired with orthopedics but he was walking on that lower extremity sooner than advised with poor follow-up. He presents today with a swollen right foot over the great toe with no known injury but imaging does show a subacute or acute intra-articular fracture of the head first proximal phalanx with swelling consistent with cellulitis but no gas formation. Patient was on cefpodoxime but there is no mention of being seen as an outpatient and he came to the ED for evaluation of failed outpatient therapy for cellulitis and foot pain which may be combination of cellulitis and fracture. I did call orthopedics who advised there was no different treatment than treating cellulitis with his fractures with no orthopedic consultation needed. He will be admitted for IV antibiotic therapy and close monitoring of his infection converting to oral therapy when appropriate. Patient has poorly controlled diabetes will need better control patient with weight loss and better medical follow-up. He is a full code. (2) Fracture of right great toe: Start date: 12/21/23 Status: Acute Assessment and plan: Patient has no known trauma but does have abrasion over his right knee. Symptomatic treatment with no specific orthopedic follow-up consultation needed with orthopedic consulted by phone. He does see podiatry long-term. He may have a Charcot joint of the right ankle status post fracture with poor sensation secondary to his diabetes being poorly controlled. This to be followed up with orthopedics as needed. Repeated trauma and fractures are most likely. Qualifiers: Encounter type: initial encounter Fracture alignment: nondisplaced F racture type: closed Phalanx: proximal Qualified Code(s): S92.414A - Nondisplaced fracture of proximal phalanx of right great toe, initial encounter for closed fracture (3) Charcot joint of ankle: Start date: 12/21/23 Status: Acute Assessment and plan: Patient has had recent fracture of his tib-fib with poor follow-up and early ambulation with what appears to be a Charcot joint. This is early in the process and may advance with his diabetes at neuropathy with poor control. Weight loss would be helpful. He can follow-up podiatry and orthopedics as needed. Qualifiers: Laterality: right Qualified Code(s): M14.671 - Charcot's joint, right ankle and foot (4) Diabetes mellitus, type 2: Status: Chronic Assessment and plan: Hold outpatient therapy with glucometer measurements using short acting insulin for before meals and at bedtime coverage. Long-term he needs better control with his last hemoglobin A1c at 8.7. Qualifiers: Diabetes mellitus complication status: without complication Diabetes mellitus fpc insulin use: without fpc use Qualified Code(s): E11.9 - Type 2 diabetes mellitus without complications (5) Afib: Assessment and plan: Controlled rate with continued outpatient medical therapy and Xarelto for anticoagulation. Qualifiers: Atrial fibrillation type: persistent (not longstanding) Qualified Code(s): I48.19 - Other persistent atrial fibrillation (6) Polycythemia: Status: Chronic Assessment and plan: Patient needs therapeutic phlebotomies and closer follow-up with aggressive treatment of his sleep apnea with weight loss long-term. He should avoid iron supplements and iron foods. (7) Hypothyroidism: Assessment and plan: Check TSH and continue outpatient supplement. Qualifiers: Hypothyroidism type: acquired Qualified Code(s): E03.9 - Hypothyroidism, unspecified (8) DAYNA (obstructive sleep apnea): Status: Chronic Assessment and plan: Continue CPAP at home settings. History of Present Illness History of Present Illness Chief Complaint: Swollen, painful and red right foot and large toe Narrative: This is a 63-year-old male patient who has recurrent problems with right foot more than left having uncontrolled diabetes with a hemoglobin A1c of 8.7 in July 2023 and chronic psychiatric disease and during medical follow-up. He recently did fracture his right ankle with repair but he began to walk on it sooner than advised with a Charcot joint of his right ankle at this time. He states that he did not have any recent trauma but does fall frequently and has an abrasion over his right knee with a sore right toe. His right toe is deformed chronically with hyperpigmented skin over his right foot compared to left. He complains of swelling and increased warmth to touch with redness of his right foot which came on suddenly. He did see an outpatient physician recently and was started on cephalexin but this appears to not have been taken for very long. He was brought to the ED by his care provider with low-grade fever and worsening, rapid progression of his right foot swelling with redness. He denies any chills or cough. He has no GI complaints. He is chronically on CPAP at night for sleep apnea. He also has chronic atrial fibrillation on Xarelto but has had no bruising. He denies any chest pain. He has schizophrenia on chronic medical therapy with very poor control. He was cultured and given vancomycin with cefepime in the ED for diabetic foot ulcer with cellulitis being immunocompromised and having rapid onset and progression of physical findings. He will be admitted for IV antibiotic therapy with MRSA screening before continuing vancomycin. Cultures will be followed the patient will be transition to oral therapy once stable. Prognosis poor for compliance with medical therapy for avoiding trauma to his feet which appears to be chronic. He is a full code. Review of Systems Narrative: 13 point review of systems otherwise unrevealing or stable. PFSH All Active Problems (Updated 12/22/23 @ 00:17 by Julius Calderon) DAYNA (obstructive sleep apnea) (Chronic) Cellulitis (Acute) Fracture of right great toe (Acute) Charcot joint of ankle (Acute) Cellulitis in diabetic foot (Acute) Nail dystrophy (Acute) Onychomycosis (Acute) Atherosclerosis of artery of both lower extremities (Acute) Very low level of personal hygiene (Acute) Diabetes mellitus, type 2 (Chronic) Disorder of the skin and subcutaneous tissue, unspecified (Acute) Encephalopathy (Acute) Urge incontinence (Acute) Polycythemia (Chronic) Hypomagnesemia (Acute) Schizophrenia (Chronic) Weight gain (Acute 10/22/16) Screening for colorectal cancer (Acute) Heel ulcer (Acute) Medication monitoring encounter (Acute) Acute ischemic stroke (Acute) C1 cervical fracture (Acute) Chronic schizophrenia (Chronic) Ambulatory dysfunction (Acute) Alteration in thought content as evidenced by delusions (Acute) BRENNEN (acute kidney injury) (Acute) Medical History Pneumonia Pneumonia Dementia History of malignant neoplasm of skin Edema Blood in urine Steatosis of liver Constipation Community acquired pneumonia Venous stasis Nicotine dependence Bipolar disorder Schizoaffective disorder HTN (hypertension) (02/04/16) 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 (10/22/16) Facial basal cell cancer (02/04/16) OAB (overactive bladder) Diverticulosis Chronic constipation Hypothyroidism RLS (restless legs syndrome) Atrial enlargement, bilateral BCC (basal cell carcinoma of skin) Urinary incontinence Afib Vitreous floaters of right eye Non-ST elevation MD (NSTEMI) Obesity Surgical History Hx of cholecystectomy Tonsillectomy Hydrocelectomy Excision, Lipoma Colonoscopy - MAC (01/25/16) 2010 Family History Mother Alcohol abuse Father Heart disease FH: mental illness Brother Alcohol abuse Paternal Grandfather Heart disease Maternal Grandfather Diabetes Social History Smoking/Tobacco Use Status: Current every day Tobacco Type: cigarettes Smoking risk assessment performed?: Yes Alcohol Intake: current Alcohol Intake frequency: holidays/special occasions only Alcohol type: beer and hard liquor Drug use: Current Sobriety Substance use type: does not use Housing: apartment Current gender identity: male Do you feel safe at home: Yes Do you feel safe in your relationship?: Yes Meds Allergies and Home Medications Allergies Allergy/AdvReac Type Severity Reaction Status Date / Time Penicillins AdvReac Intermediate black out Unverified 12/21/23 22:11 gabapentin AdvReac Mild Headache Unverified 12/21/23 22:11 niacin AdvReac Mild turn red Unverified 12/21/23 22:11 Home Medications ?Medication ?Instructions ?Recorded ?Confirmed ?Type ropinirole 1 mg tablet 1 mg PO DIRECTED 03/27/19 12/21/23 History metoprolol succinate 25 mg 12.5 mg (1/2 x 25 mg) PO DAILY #30 03/30/22 12/21/23 Rx tablet,extended release 24 hr tabs potassium chloride 20 mEq 10 meq PO DAILY 06/20/22 12/21/23 History tablet,extended release clozapine 100 mg tablet 100 mg PO DAILY AM 09/03/23 12/21/23 History clozapine 200 mg tablet 200 mg PO HS 09/03/23 12/21/23 History furosemide 40 mg tablet 40 mg PO QAM 09/03/23 12/21/23 History rivaroxaban 20 mg tablet (Xarelto) 20 mg PO DAILY 09/03/23 12/21/23 History cholecalciferol (vitamin D3) 50 50 mcg PO DAILY 09/29/23 12/21/23 History mcg (2,000 unit) capsule cyanocobalamin (vitamin B-12) 1,000 mcg PO DAILY 09/29/23 12/21/23 History 1,000 mcg capsule docusate sodium 100 mg capsule 200 mg PO BID 09/29/23 12/21/23 History (Stool Softener) empagliflozin 25 mg tablet 25 mg PO DAILY 09/29/23 12/21/23 History (Jardiance) ergocalciferol (vitamin D2) 1,250 1,250 mcg PO .twice a week 09/29/23 12/21/23 History mcg (50,000 unit) capsule levothyroxine 125 mcg tablet 125 mcg PO DAILY 09/29/23 12/21/23 History metformin 1,000 mg tablet 2,000 mg PO DAILY 09/29/23 12/21/23 History paliperidone palmitate 156 mg/mL 156 mg IM QMONTH 09/29/23 12/21/23 History intramuscular syringe (Invega Sustenna) polyethylene glycol 3350 17 17 g PO DAILY PRN 09/29/23 12/21/23 History gram/dose oral powder (Miralax) atorvastatin 10 mg tablet 10 mg PO DAILY 10/28/23 12/21/23 History cefpodoxime 200 mg tablet 200 mg PO BID 10/28/23 12/21/23 History magnesium chloride 64 mg 64 mg PO DAILY 10/28/23 12/21/23 History (magnesium chloride) tablet melatonin 3 mg capsule 3 mg PO HS PRN 10/28/23 12/21/23 History nicotine 14 mg/24 hr daily 1 patch transdermal DAILY 10/28/23 12/21/23 History transdermal patch nicotine 21 mg/24 hr daily 1 patch transdermal DAILY 10/28/23 12/21/23 History transdermal patch sennosides 8.6 mg capsule (senna) 8.6 mg PO BID 10/28/23 12/21/23 History triamcinolone acetonide 0.1 % 1 applic topical BID 10/28/23 12/21/23 History topical cream ketoconazole 2 % topical cream 1 applic topical DAILY #30 grams 12/14/23 12/21/23 Rx urea 40 % topical cream 1 applic topical DAILY dystrophic, 12/14/23 12/21/23 Rx mycotic toenails #28.35 grams Exam Narrative Exam Narrative: General: Patient appears older than stated age, morbidly obese lying in bed in no acute distress but with flattened affect. He is alert and oriented at least to person and place. HEENT: Normocephalic, coarsened facial features with puffy face especially below eyes with what appears to be scarring apparently under the right eye. Eyes with pupils equal and reactive to light symmetrically, extraocular movement intact and sclera anicteric. Oropharynx with dry mucosa and poor dentition. Neck: Supple without JVD. Lungs: Fair aeration and clear to auscultation percussion with no focalizing rales or rhonchi. No expiratory wheeze. Heart: Irregular rhythm with normal rate with no appreciable murmur or gallop. Distant heart sounds. Abdomen: Obese contour, soft and nontender to palpation with no palpable hepatosplenomegaly. Bowel sounds positive in all quadrants. Genitalia/rectal: Exam deferred. Extremities: Nonpitting edema both lower extremities with chronic skin changes both legs with loss of hair, shiny atrophic skin and hyperpigmentation especially over the feet and large toes on the right more than left. There is decreased in the right large toe and toes tender to movement. Right large toe is swollen. There is no ulcer or drainage. Erythema half-way up the right foot with swelling and increased warmth to touch. There is slight erythema half-way up the left foot this is cool to touch. There is no swelling in the left foot. There is slight swelling and deformity of the right ankle with tenderness to range of motion. Fair capillary refill. Decreased sensation both feet. Skin: Pale, warm and dry with abrasions over the right more than left lower extremity with a fresh abrasion over the right extensor surface of the knee. Slight erythema around this abrasion no tenderness to touch. No bruising. Neuro: Cranial nerves II through XII gross intact, no focal motor deficits. No tremor. Decreased sensation lower extremities particularly feet. Psych: Flattened affect with depressed mood and slightly dysarthric speech which is slow monotonous. No abnormal thought processes manifested. Patient does repeat himself. Remote and recent memory grossly intact. Results Imaging Imaging Studies: Exam: CT Right Lower Extremity With Contrast, Foot Exam date and time: 12/21/2023 7:48 PM Age: 63 years old Clinical indication: Pain; Right; Patient HX: R foot infection, concern for gas TECHNIQUE: Imaging protocol: CT of the right lower extremity with intravenous contrast was performed. Exam focused on the foot. Radiation optimization: All CT scans at this facility use at least one of these dose optimization techniques: automated exposure control; mA and/or kV adjustment per patient size (includes targeted exams where dose is matched to clinical indication); or iterative reconstruction. Contrast material: ONIPAQUE 350; Contrast volume: 100 ml; Contrast route: INTRAVENOUS (IV); COMPARISON: CR XR FOOT RT COMPLETE 21/12/2023 18:34 FINDINGS: Bones/joints: The joints maintain anatomic alignment.Fracture deformity of the distal tibia and fibula of unknown acuity. Edema in the subcutaneous soft tissues along the dorsum of the foot, area of the metatarsals, along the plantar fascia and medial adductor muscles of the foot. There are hammer toes of the 2nd - 5th digits. Intra-articular fracture of the head of the 1st proximal phalanx that appears acute or subacute. Soft tissues: No gas is seen in soft tissues. IMPRESSION: 1. No gas is seen in soft tissues of the right foot. 2. Edema in the subcutaneous soft tissues along the dorsum of the foot, area of the metatarsals, along the plantar fascia and medial adductor muscles of the foot, that in the appropriate clinical setting, is consistent with cellulitis. No periosteal reaction to suggest osteomyelitis at this time. 3. Fracture deformity of the distal tibia and fibula of unknown acuity. 4. Intra-articular fracture of the head of the 1st proximal phalanx that appears acute or subacute. Labs 12/21/23 18:06 12/21/23 18:06 Labs: Laboratory Results - last 24 hr 12/21/23 12/21/23 18:06 19:23 WBC 12.50 H RBC 5.95 H Hgb 18.6 H Hct 53.5 H MCV 90 MCH 31.3 MCHC 34.8 RDW 12.6 Plt Count 258 MPV 10.8 Immature Gran % 0.8 Neutrophils % 70.1 Lymphocytes % 18.0 Monocytes % 9.1 Eosinophils % 1.4 Basophils % 0.6 Nucleated RBC % 0.0 Absolute Neutrophils 8.76 H Absolute Lymphocytes 2.25 Absolute Monocytes 1.14 H Absolute Eosinophils 0.18 Absolute Basophils 0.08 ESR 13 VBG pH 7.41 VBG pCO2 45 VBG pO2 37 VBG HCO3 29 H VBG Total CO2 30 H VBG O2 Saturation 71 VBG Base Excess 4 H VBG Lactate 2.1 H* Sodium 144 Potassium 3.7 Chloride 103 Carbon Dioxide 30.8 Anion Gap 10.2 BUN 19 H Creatinine 1.0 Est GFR (CKD-EPI 2020) 83.52 Glucose 208 H Calcium 10.3 H Total Bilirubin 0.45 AST 14 L ALT 37 Alkaline Phosphatase 116 C-Reactive Protein 0.89 H Total Protein 8.0 Albumin 3.9 Procalcitonin < 0.1 Last Vital Signs Temp 37.7 C H 12/21/23 16:16 Pulse 58 L 12/21/23 22:01 Resp 17 12/21/23 22:10 BP 112/61 12/21/23 22:01 Pulse Ox 92 12/21/23 22:10 Time Spent Time spent with Patient: >75 minutes Time was spent: preparing to see the patient(eg.review tests), obtaining and/or reviewing separately otained hiistory, ordering medications,tests, procedures, referring, communicating with other health adult caregiver, indepentently interpreting results, counseling the patient and care coordination
[2023-12-21] MEDS: VANCOMYCIN 2,000 MG in Normal Saline 500 ML 250 MG IVPB (22:37)
[2023-12-22] VITALS (7 sets, daily range): BP systolic 99–119; BP diastolic 66–95; PULSE 64–80; RESP 16–20; TEMP 36.4–36.7; O2SAT 91–94
[2023-12-22] MEDS: Normal Saline 1,000 ML 125 ML IV (01:26)
[2023-12-22 03:03] LABS: MRSA PCR Negative (Negative)
--- NOTE | 2023-12-22 04:52 | NUR.NOTE ---
Charge nurse notified of pt's persistent leg cramps, ERINN Walker called lab to draw labs early
[2023-12-22] MEDS: CEFEPIME 2 GM in Normal Saline 100 ML IVPB ×3 (05:44→22:03)
[2023-12-22] MEDS: Levothyroxine 125 MCG TAB PO (05:44)
--- NOTE | 2023-12-22 06:04 | W.PC.ACHO ---
Registration Status: Primary Language: Preferred Language: ED Information & Data Chief Complaint Cellulitis 12/21/23 18:28 Triage Note Pt arrives to ED c/f a RT 12/21/23 16:12 toe/foot infection. RT big toe and 2nd toe appear bruised. Entire foot appears red and swollen. Pt is diabetic. Medical / Surgical History (Last Reviewed 12/22/23 @ 00:08 by Julius Calderon) Pneumonia Pneumonia Dementia History of malignant neoplasm of skin Edema Blood in urine Steatosis of liver Constipation Community acquired pneumonia Venous stasis Nicotine dependence Bipolar disorder Schizoaffective disorder HTN (hypertension) (02/04/16) 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 (10/22/16) Facial basal cell cancer (02/04/16) OAB (overactive bladder) Diverticulosis Chronic constipation Hypothyroidism RLS (restless legs syndrome) Atrial enlargement, bilateral BCC (basal cell carcinoma of skin) Urinary incontinence Afib Vitreous floaters of right eye Non-ST elevation NM (NSTEMI) Obesity (Last Reviewed 12/22/23 @ 00:08 by Julius Calderon) Hx of cholecystectomy Tonsillectomy Hydrocelectomy Excision, Lipoma Colonoscopy - MAC (01/25/16) Most Recent Vital Signs Temperature 36.7 C 12/22/23 00:24 Temperature Source Oral 12/21/23 16:16 Pulse 77 12/22/23 00:24 Pulse Rhythm Regular 12/22/23 00:24 Pulse 77 12/21/23 23:16 Respiratory Rate 18 12/22/23 00:24 Respiratory Effort Normal, Non-Labored 12/22/23 00:24 Respiratory Depth Normal 12/22/23 00:24 Respiratory Pattern Normal 12/22/23 00:24 Blood Pressure 111/78 12/22/23 00:24 Blood Pressure Mean 84 12/21/23 23:46 Pulse Oximetry 92 12/22/23 00:24 Oxygen Delivery Method Room Air 12/22/23 00:24 Oxygen Flow Rate 0 12/22/23 00:24 Pain Level 5 12/22/23 00:24 Allergies Penicillins Adverse Reaction (Intermediate, Unverified 12/21/23 22:11) black out gabapentin Adverse Reaction (Mild, Unverified 12/21/23 22:11) Headache niacin Adverse Reaction (Mild, Unverified 12/21/23 22:11) turn red Active Medications Generic Name Dose Route Start Last Admin Trade Name Freq PRN Reason Stop Dose Admin Sodium Chloride 1,000 mls @ 125 mls/hr 12/21/23 22:45 12/22/23 01:26 Saline 1000ml Bag IV 125 mls/hr INFUSION AMEE Administration Cefepime HCl 2 gm/ Sodium 100 mls @ 200 mls/hr 12/22/23 06:00 12/22/23 05:44 Chloride IVPB 200 mls/hr Q8H AMEE Administration Iohexol 100 ml 12/21/23 19:45 12/21/23 19:42 Omnipaque 350 Mg/Ml 100 Ml Btl IJ 01/20/24 23:59 100 ml DIRECTED AMEE Administration Levothyroxine Sodium 125 mcg 12/22/23 06:00 12/22/23 05:44 Levothyroxine 125 Mcg Tab PO 125 mcg 0600 AMEE Administration Sodium Chloride 0 ml 12/21/23 19:43 12/21/23 19:43 Normal Saline Flush 10 Ml Syr IVP 10 ml PRN PRN Administration Sodium Chloride 50 ml 12/21/23 19:45 12/21/23 19:43 Normal Saline - Diluent 50 Ml Vial IJ 50 ml .FOR DI USE AMEE Administration IV IV Catheter Type [Right Peripheral IV Antecubital] IV Catheter Gauge [Right 18 Antecubital] Diet Orders Category Date Time Status Diabetes Consistent CHO/Heart Healthy [DIET] Nutrition 12/22/23 Breakfast Active Diagnostics 12/22/23 12/22/23 12/21/23 Range/Units 05:35 01:30 22:40 WBC Pending (4.4-10.8) 10^3/uL RBC Pending (4.36-5.78) 10^6/uL Hgb Pending (13.5-17.5) g/dL Hct Pending (40.0-50.0) % MCV Pending (80-95) fL MCH Pending (27.0-33.0) pg MCHC Pending (32.0-36.0) % RDW Pending (11.8-14.1) % Plt Count Pending (130-400) 10^3/uL MPV Pending (8.0-11.0) fL Immature Gran % % Neutrophils % % Lymphocytes % % Monocytes % % Eosinophils % % Basophils % % Nucleated RBC % (0.0-0.3) % Absolute Neutrophils (1.2-6.7) 10^3/uL Absolute Lymphocytes (1.2-3.4) 10^3/uL Absolute Monocytes (0.1-0.8) 10^3/uL Absolute Eosinophils (0.0-0.7) 10^3/uL Absolute Basophils (0.0-0.2) 10^3/uL ESR (0-20) mm/hr VBG pH (7.31-7.41) VBG pCO2 (41-51) mmHg VBG pO2 mmHg VBG HCO3 (23-28) mmol/L VBG Total CO2 (24-29) mmol/L VBG O2 Saturation % VBG Base Excess (-2-3) mmol/L VBG Lactate Pending (0.9-1.7) mmol/L Sodium Pending (136-145) mmol/L Potassium Pending (3.5-5.1) mmol/L Chloride Pending (98-107) mmol/L Carbon Dioxide Pending (21.0-32.0) mmol/L Anion Gap Pending (3-11) mmol/L BUN Pending (7-18) mg/dL Creatinine Pending (0.70-1.30) mg/dL Est GFR (CKD-EPI 2020) Pending (mL/min/1.73m2) Glucose Pending (74-106) mg/dL Calcium Pending (8.5-10.1) mg/dL Magnesium Pending Total Bilirubin Pending (0.2-1.0) mg/dL AST Pending (15-37) U/L ALT Pending (16-63) U/L Alkaline Phosphatase Pending (46-116) U/L C-Reactive Protein (<or=0.5) mg/dL Total Protein Pending (6.4-8.2) g/dL Albumin Pending (3.4-5.0) g/dL Procalcitonin ng/mL TSH Pending MRSA (TEM-PCR) Negative (Negative) 12/21/23 12/21/23 Range/Units 19:23 18:06 WBC 12.50 H (4.4-10.8) 10^3/uL RBC 5.95 H (4.36-5.78) 10^6/uL Hgb 18.6 H (13.5-17.5) g/dL Hct 53.5 H (40.0-50.0) % MCV 90 (80-95) fL MCH 31.3 (27.0-33.0) pg MCHC 34.8 (32.0-36.0) % RDW 12.6 (11.8-14.1) % Plt Count 258 (130-400) 10^3/uL MPV 10.8 (8.0-11.0) fL Immature Gran % 0.8 % Neutrophils % 70.1 % Lymphocytes % 18.0 % Monocytes % 9.1 % Eosinophils % 1.4 % Basophils % 0.6 % Nucleated RBC % 0.0 (0.0-0.3) % Absolute Neutrophils 8.76 H (1.2-6.7) 10^3/uL Absolute Lymphocytes 2.25 (1.2-3.4) 10^3/uL Absolute Monocytes 1.14 H (0.1-0.8) 10^3/uL Absolute Eosinophils 0.18 (0.0-0.7) 10^3/uL Absolute Basophils 0.08 (0.0-0.2) 10^3/uL ESR 13 (0-20) mm/hr VBG pH 7.41 (7.31-7.41) VBG pCO2 45 (41-51) mmHg VBG pO2 37 mmHg VBG HCO3 29 H (23-28) mmol/L VBG Total CO2 30 H (24-29) mmol/L VBG O2 Saturation 71 % VBG Base Excess 4 H (-2-3) mmol/L VBG Lactate 2.1 H* (0.9-1.7) mmol/L Sodium 144 (136-145) mmol/L Potassium 3.7 (3.5-5.1) mmol/L Chloride 103 (98-107) mmol/L Carbon Dioxide 30.8 (21.0-32.0) mmol/L Anion Gap 10.2 (3-11) mmol/L BUN 19 H (7-18) mg/dL Creatinine 1.0 (0.70-1.30) mg/dL Est GFR (CKD-EPI 2020) 83.52 (mL/min/1.73m2) Glucose 208 H (74-106) mg/dL Calcium 10.3 H (8.5-10.1) mg/dL Magnesium Total Bilirubin 0.45 (0.2-1.0) mg/dL AST 14 L (15-37) U/L ALT 37 (16-63) U/L Alkaline Phosphatase 116 (46-116) U/L C-Reactive Protein 0.89 H (<or=0.5) mg/dL Total Protein 8.0 (6.4-8.2) g/dL Albumin 3.9 (3.4-5.0) g/dL Procalcitonin < 0.1 ng/mL TSH MRSA (TEM-PCR) (Negative) 12/21/23 19:05 Blood Culture - Pending Blood 12/21/23 18:06 Blood Culture - Pending Blood Intake and Output - 24 Hour Total 12/21/23 15:58 thru 12/22/23 00:37 Intake Total 1600 Balance 1600 Weight 129.274 kg Intake: IV 1600 Other: Urine Appearance Clear Falls Risk Assessment History of Falls Previous History 12/22/23 00:24 Contributing Factors Confusion 12/22/23 00:24 Ambulatory Aids Uses ambulatory device 12/22/23 00:24 Tubes/Lines W/no contributing factors 12/22/23 00:24 Gait Evaluation W/any additional score 12/22/23 00:24 Cognition No cognitive impairment 12/21/23 18:20 Fall Total Score 63 12/22/23 00:24 Level of Risk High Risk 12/22/23 00:24 Problems (Last Reviewed 12/22/23 @ 00:08 by Julius Calderon) DAYNA (obstructive sleep apnea) (Chronic) Cellulitis (Acute) Fracture of right great toe (Acute) Charcot joint of ankle (Acute) Cellulitis in diabetic foot (Acute) Diabetes mellitus, type 2 (Chronic) Polycythemia (Chronic) Notes 12/22/23 04:52 Nursing Notes by Cristal Portillo Charge nurse notified of pt's persistent leg cramps, Denise RN called lab to draw labs early Initialized on 12/22/23 04:52 - END OF NOTE v v v v v v v v v Sending and/or Receiving Nurses: Please use comment section below to note any information pertinent to the patient hand-off not included above. Information / Comments: per report, pt has made no c/o pain. Lung sounds are clear, NSR. Report received from: elisha Cutleredic
[2023-12-22 07:11] LABS: Lactate 0.9 mmol/L (0.6-1.4)
[2023-12-22 07:15] LABS: HCT 48.9 % (40.0-50.0); HGB 16.7 g/dL (13.5-17.5); MCH 30.9 pg (27.0-33.0); MCHC 34.2 % (32.0-36.0); MCV 91 fL (80-95); MPV 10.6 fL (8.0-11.0); Platelet Count 223 10^3/uL (130-400); RDW 12.8 % (11.8-14.1); RDW-SD 42.1 fL; WBC 11.03 10^3/uL (4.4-10.8)
--- NOTE | 2023-12-22 07:18 | NUR.NOTE ---
Previous note entered on wrong pt
[2023-12-22 07:44] LABS: ALT 26 U/L (16-63); AST 13 U/L (15-37); Albumin 3.2 g/dL (3.4-5.0); Alkaline Phosphatase 94 U/L (46-116); Anion Gap 9.5 mmol/L (3-11); BUN 15 mg/dL (7-18); Bilirubin, Total 0.86 mg/dL (0.2-1.0); CO2 25.5 mmol/L (21.0-32.0); CREATININE 0.8 mg/dL (0.70-1.30); Calcium 9.1 mg/dL (8.5-10.1); Chloride 106 mmol/L (98-107); Estimated GFR 98.21 (mL/min/1.73m2); Glucose 169 mg/dL (74-106); Magnesium 1.9 mg/dL (1.8-2.4); Potassium 3.9 mmol/L (3.5-5.1); Sodium 141 mmol/L (136-145); TSH (W/Ref FT4) 0.59 uIU/mL (0.36-3.74); Total Protein 6.8 g/dL (6.4-8.2)
[2023-12-22] MEDS: Cholecalciferol (Vitamin D3) 1,000 UNIT TAB 2000 UNITS PO (08:56)
[2023-12-22] MEDS: Cyanocobalamin 500 MCG TAB 1000 MCG PO (08:56)
[2023-12-22] MEDS: Furosemide 40 MG TAB PO (08:57)
[2023-12-22] MEDS: Empaglifozin 25 MG TAB PO (08:57)
[2023-12-22] MEDS: Docusate Sodium 100 MG CAP 200 MG PO ×2 (08:57→20:42)
[2023-12-22] MEDS: Insulin Aspart 300 UNITS/3 ML PEN SC ×4 (08:58→20:51)
[2023-12-22] MEDS: Metoprolol 12.5 MG TAB PO ×2 (08:59→20:43)
[2023-12-22] MEDS: Magnesium Chloride 64 MG TABCR PO (08:59)
[2023-12-22] MEDS: Ketoconazole 2% CREAM 15 GM TUBE TP (08:59)
[2023-12-22] MEDS: Normal Saline Flush 10 ML SYR IVP ×3 (09:00→20:44)
[2023-12-22] MEDS: Nicotine 14 MG/24 HR PATCH TD (09:00)
[2023-12-22] MEDS: Rivaroxaban 10 MG TABLET 20 MG PO (09:01)
[2023-12-22] MEDS: Potassium Chloride 10 MEQ CAPCR PO (09:01)
[2023-12-22] MEDS: Triamcinolone 0.1% CR 15 GM TUBE TP ×2 (09:02→20:50)
[2023-12-22] MEDS: Senna TAB 8.6 TAB PO (09:02)
--- NOTE | 2023-12-22 09:59 | PGE_ITS ---
Date of Service Date of service: 12/22/23 Time of Service: 09:59 Assessment and Plan Assessment and plan (1) Cellulitis in diabetic foot: Start date: 12/21/23 Status: Acute Assessment and plan: -recent past for fracture right ankle which was repaired with orthopedics but he was walking on that lower extremity sooner than advised with poor follow-up. -found to have subacute or acute intra-articular fracture of the head first proximal phalanx with swelling consistent with cellulitis but no gas formation. -Patient was on cefpodoxime but there is no mention of being seen as an outpatient and he came to the ED for evaluation of failed outpatient therapy for cellulitis -admitting physician discussed with orthopedics who advised there was no different treatment than treating cellulitis with his fractures with no orthopedic consultation needed. -was started on vanc and cefepime on admission, will continue -[facility] Radiologist called to report additional findings not on initial Vrad read; -acute/subacute fracture of prox phalanx of right 2nd toe -significant degenerative changes in the right great toe metatarsophalangeal joint (though not in report, it was mentioned to me that he could not exclude osteo) -Podiatry consulted; aspirated fracture blister, will follow-up culture results (2) Severe sepsis: Status: Acute Assessment and plan: -patient met criteria for severe sepsis on admission with WBC 12.5, HR 91, initial lactic acid of 2.1 and right great toe cellulitis as source of infection as noted above -sepsis resolved as repeat lactic down to 0.9 and WBC down to 11 on AM 7/16 -treatment regimen for cellulitis as noted above (3) Fracture of right great toe: Start date: 12/21/23 Status: Acute Assessment and plan: -as noted above Qualifiers: Encounter type: initial encounter Fracture alignment: nondisplaced Fracture type: closed Phalanx: proximal Qualified Code(s): S92.414A - Nondisplaced fracture of proximal phalanx of right great toe, initial encounter for closed fracture (4) Charcot joint of ankle: Start date: 12/21/23 Status: Acute Assessment and plan: -Patient has had recent fracture of his tib-fib with poor follow-up and early ambulation with what appears to be a Charcot joint. -This is early in the process and may advance with his diabetes at neuropathy with poor control. Qualifiers: Laterality: right Qualified Code(s): M14.671 - Charcot's joint, right a nkle and foot (5) Diabetes mellitus, type 2: Status: Chronic Assessment and plan: -Hold outpatient therapy -SSI, CCD -Long-term he needs better control with his last hemoglobin A1c at 8.7. 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 Qualifiers: Atrial fibrillation type: persistent (not longstanding) Qualified Code(s): I48.19 - Other persistent atrial fibrillation (7) Polycythemia: Status: Chronic Assessment and plan: -Patient needs therapeutic phlebotomies and closer follow-up with aggressive treatment of his sleep apnea with weight loss long-term. He should avoid iron supplements and iron foods. (8) Hypothyroidism: Assessment and plan: -Check TSH and continue outpatient supplement. Qualifiers: Hypothyroidism type: acquired Qualified Code(s): E03.9 - Hypothyroidism, unspecified (9) DAYNA (obstructive sleep apnea): Status: Chronic Assessment and plan: -Continue CPAP at home settings. Subjective Subjective Interval history since last seen: Patient states that he is feeling better today, but appears to have a lack ot understanding regarding the state of his feet, wounds, and recurrent fractures. Exam Narrative Exam Narrative: chronically ill appearing older gentleman sitting up in the chair in no acute distress, awake, alert, oriented to person, place and time, heart RRR, lungs CTAB, abdomen soft, non-tender, non-distended, signs of bilateral chronic venous insufficiency, erythema and swelling of the right great and second toes with erythema extending to just below the ankle Objective Last Vital Signs Temp 97.5 F L 12/22/23 07:42 Pulse 80 12/22/23 07:42 Resp 18 12/22/23 07:42 BP 116/95 H 12/22/23 07:42 Pulse Ox 93 12/22/23 07:42 Laboratory Results - last 24 hr 12/21/23 12/21/23 12/22/23 18:06 19:23 01:30 WBC 12.50 H RBC 5.95 H Hgb 18.6 H Hct 53.5 H MCV 90 MCH 31.3 MCHC 34.8 RDW 12.6 Plt Count 258 MPV 10.8 Immature Gran % 0.8 Neutrophils % 70.1 Lymphocytes % 18.0 Monocytes % 9.1 Eosinophils % 1.4 Basophils % 0.6 Nucleated RBC % 0.0 Absolute Neutrophils 8.76 H Absolute Lymphocytes 2.25 Absolute Monocytes 1.14 H Absolute Eosinophils 0.18 Absolute Basophils 0.08 ESR 13 VBG pH 7.41 VBG pCO2 45 VBG pO2 37 VBG HCO3 29 H VBG Total CO2 30 H VBG O2 Saturation 71 VBG Base Excess 4 H VBG Lactate 2.1 H* Sodium 144 Potassium 3.7 Chloride 103 Carbon Dioxide 30.8 Anion Gap 10.2 BUN 19 H Creatinine 1.0 Est GFR (CKD-EPI 2020) 83.52 Glucose 208 H Calcium 10.3 H Magnesium Total Bilirubin 0.45 AST 14 L ALT 37 Alkaline Phosphatase 116 C-Reactive Protein 0.89 H Total Protein 8.0 Albumin 3.9 Procalcitonin < 0.1 TSH MRSA (TEM-PCR) Negative 12/22/23 12/22/23 07:00 07:00 WBC 11.03 H RBC 5.40 Hgb 16.7 Hct 48.9 MCV 91 MCH 30.9 MCHC 34.2 RDW 12.8 Plt Count 223 MPV 10.6 Immature Gran % Neutrophils % Lymphocytes % Monocytes % Eosinophils % Basophils % Nucleated RBC % Absolute Neutrophils Absolute Lymphocytes Absolute Monocytes Absolute Eosinophils Absolute Basophils ESR VBG pH VBG pCO2 VBG pO2 VBG HCO3 VBG Total CO2 VBG O2 Saturation VBG Base Excess VBG Lactate 0.9 Sodium 141 Potassium 3.9 Chloride 106 Carbon Dioxide 25.5 Anion Gap 9.5 BUN 15 Creatinine 0.8 Est GFR (CKD-EPI 2020) 98.21 Glucose 169 H Calcium 9.1 Magnesium 1.9 Total Bilirubin 0.86 AST 13 L ALT 26 Alkaline Phosphatase 94 C-Reactive Protein Total Protein 6.8 Albumin 3.2 L Procalcitonin TSH Cancelled 0.59 MRSA (TEM-PCR) Time Spent with Patient Time Spent with Patient: >50 minutes Time was spent: preparing to see the patient(eg.review tests), obtaining and/or reviewing separately otained hiistory, ordering medications,tests, procedures, referring, communicating with other health care team assistant, indepentently interpreting results, counseling the patient and care coordination
--- NOTE | 2023-12-22 13:13 | PDOC.CMIN ---
Date of service: 12/22/23 Time of Service: 13:14 Care Management Initial Assmt Initial Assessment Reason for Hospitalization: cellulitis right foot Functional Status/Living Situation Patient Presentation: Judd was sitting up in his chair when CM met with him. He stated that he is doing well today. CM discussed his community supports, including Tia, his [employer]UD[employer] wrapper caser. CM also discussed his discharge plan, and asked if he would be agreeable to going to short term rehab prior to returning home, if it is recommended by PT. Judd is agreeable to going to SNF, if indicated. CM requested a PT consult to determine his needs upon discharge. If SNF is recommended, CM will send referrals to [facility] and [facility]. CM will continue to follow. [facility] Residence: [facility] Resides with: Alone Caregiver/Guardian: Judd has caregivers from [facility] 2-3 days/week, as well as a caregiver/friend who helps him around the house frequently. Judd is a [employer] client and has twice daily med drops, as well as a wrapper caser, Tia. Employment Status: Unemployed Instrumental Activities of Daily Living (ADLs): Requires support with Dishes/food prep, J2Ee Application Developer, Groceries, Heat/Utilities, Laundry and Transportation Medications Medication Management: Issues/Barriers with Instructions/Directions (twice daily med drops by [employer] during the week) Advance Directives Advance Directives: Do you have an Advance Directive: Y 11/13/20 20:19 AD On File at [facility]: Y 11/13/20 20:19 Date Asked AD Date Reviewed 12/22/23 12/22/23 00:05 COLST On File at [facility] No 10/12/22 06:44 COLST Date Scanned Code Status Resuscitation Status Full Code Insurance Coverage/Financial Issues Insurance: [facility]. [facility]. Care Team Visit Care Team Role Provider Type Nisha Carrillo MD Primary Care Provider [facility] STAFF PHYSICIAN Breanne Will, DPM Other Providers DPM [facility] STAFF PHYSICIAN Andrés Betancourt, GUEST ROOM ATTENDANT Other Providers CERT REG NURSE INVESTMENT BANKING MANAGER ROSENDA CatesM Other [facility]iders [facility] Nevaeh Dennis Emergency Provider NURSE PRACTITIONER Julius Calderon Admit Provider NON-[facility] STAFF PHYSICIAN Attending Provider Discharge Potential Discharge Needs: PT Evaluation and PCP F/U Appt Anticipated Barriers to Discharge: Medical Status Patient/Family Education Needs: Review discharge instructions, discuss Ask Me Three Transportation: RCT Plan: Anticipate Judd will return home with new HH services, and a resumption of his caregiver support vs SNF, if he is agreeable and qualifies for short term rehab. He will transport via [facility] private vehicle, coordinated by CM. He will follow up with his PCP and discharge plan of care. CM will continue to follow. PFSH All Active Problems (Updated 12/22/23 @ 16:17 by Breanne Will DPM) Blood blister (Acute) Blister (nonthermal), right foot, initial encounter (Acute) Fracture of proximal phalanx of right great toe (Acute) Severe sepsis (Acute) DAYNA (obstructive sleep apnea) (Chronic) Cellulitis (Acute) Fracture of right great toe (Acute) Charcot joint of ankle (Acute) Cellulitis in diabetic foot (Acute) Nail dystrophy (Acute) Onychomycosis (Acute) Atherosclerosis of artery of both lower extremities (Acute) Very low level of personal hygiene (Acute) Diabetes mellitus, type 2 (Chronic) Disorder of the skin and subcutaneous tissue, unspecified (Acute) Encephalopathy (Acute) Urge incontinence (Acute) Polycythemia (Chronic) Hypomagnesemia (Acute) Schizophrenia (Chronic) Weight gain (Acute 10/22/16) Screening for colorectal cancer (Acute) Heel ulcer (Acute) Medication monitoring encounter (Acute) Acute ischemic stroke (Acute) C1 cervical fracture (Acute) Chronic schizophrenia (Chronic) Ambulatory dysfunction (Acute) Alteration in thought content as evidenced by delusions (Acute) BRENNEN (acute kidney injury) (Acute) Medical History Dementia History of malignant neoplasm of skin Edema Blood in urine Steatosis of liver Constipation Community acquired pneumonia Venous stasis Nicotine dependence Bipolar disorder Schizoaffective disorder Pneumonia HTN (hypertension) (02/04/16) 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 (10/22/16) Facial basal cell cancer (02/04/16) OAB (overactive bladder) Diverticulosis Chronic constipation Hypothyroidism RLS (restless legs syndrome) Atrial enlargement, bilateral BCC (basal cell carcinoma of skin) Urinary incontinence Afib Vitreous floaters of right eye Non-ST elevation AK (NSTEMI) Pneumonia Obesity Surgical History Hx of cholecystectomy Tonsillectomy Hydrocelectomy Excision, Lipoma Colonoscopy - MAC (01/25/16) 2010 Family History Mother Alcohol abuse Father Heart disease FH: mental illness Brother Alcohol abuse Paternal Grandfather Heart disease Maternal Grandfather Diabetes Social History Smoking/Tobacco Use Status: Current every day Tobacco Type: cigarettes Smoking risk assessment performed?: Yes Alcohol Intake: current Alcohol Intake frequency: holidays/special occasions only Alcohol type: beer and hard liquor Drug use: Current Sobriety Substance use type: does not use Housing: apartment Current gender identity: male Do you feel safe at home: Yes Do you feel safe in your relationship?: Yes SDOH(Care Management) Screening Will the Patient Participate in the Screening?: Yes Do you worry about having a steady place to live?: no Problems where you live: no known problems In the past 12 months, have you had to go without electric, gas, oil or water in your home?: no Have you or anyone in your house had to go without enough food to eat?: no Has lack of transportation kept you from medical appointments or from doing things needed for daily living?: no Has anyone in your support network made you feel unsafe for any reason?: no
--- NOTE | 2023-12-22 13:58 | PHACLINREV_ITS ---
Pharmacy Admission Review Admission Clinical Review Admission Pharmacy Review: Severe sepsis (Acute) Cellulitis (Acute) Fracture of right great toe (Acute) Charcot joint of ankle (Acute) Cellulitis in diabetic foot (Acute) Penicillins Adverse Reaction (Intermediate, Unverified 12/21/23 22:11) black out gabapentin Adverse Reaction (Mild, Unverified 12/21/23 22:11) Headache niacin Adverse Reaction (Mild, Unverified 12/21/23 22:11) turn red Resuscitation Status Full Code Height 6 ft 5 in Weight 129.274 kg Pharmacy Admission Review Renal Dosing Renal Dosing: BUN 15 mg/dL (7-18) 12/22/23 07:00 Creatinine 0.8 mg/dL (0.70-1.30) 12/22/23 07:00 Medications needing adjustments: Reviewed (CrCl 109.55 mL/min) List of meds needing interventions: Current medications are okay Anticoagulation Anticoagulation: Hgb 16.7 g/dL (13.5-17.5) 12/22/23 07:00 Hct 48.9 % (40.0-50.0) 12/22/23 07:00 Plt Count 223 10^3/uL (130-400) 12/22/23 07:00 Creatinine 0.8 mg/dL (0.70-1.30) 12/22/23 07:00 DVT Prophylaxis: Reviewed Medications: Rivaroxaban (20mg daily) Relevant Labs Relevant Labs: ESR 13 mm/hr (0-20) 12/21/23 18:06 Sodium 141 mmol/L (136-145) 12/22/23 07:00 Potassium 3.9 mmol/L (3.5-5.1) 12/22/23 07:00 Chloride 106 mmol/L (98-107) 12/22/23 07:00 Magnesium 1.9 mg/dL (1.8-2.4) 12/22/23 07:00 C-Reactive Protein 0.89 mg/dL (<or=0.5) H 12/21/23 18:06 Electrolytes, C-Reactive P, ESR: Reviewed DM Control DM Control: Glucose 169 mg/dL (74-106) H 12/22/23 07:00 Finger Stick Blood Glucose 158 1128 Finger Stick Blood Glucose 158 1128 Finger Stick Blood Glucose 171 0753 Finger Stick Blood Glucose 171 0753 DM Control: Reviewed Insulin Dosing, Diabetic Medication: Has order for SS insulin and Jardiance Cardiac Review Cardiac Review: Blood Pressure 101/70 1129 Blood Pressure 116/95 0742 Blood Pressure 117/75 0357 BP, HR, EF%: Reviewed List meds needing interventions: HR and BP WNL QTc Review QTc: Reviewed (550 from 09/03/23 - most recent EKG on file) IV to PO Switch IV Medications: Reviewed (cefepime) Home Meds Home Med List reviewed: Reviewed Relevent Home Meds Not ordered & why?: Metformin (has order for SS insulin and Jardiance), Invega (once monthly injection) Current Meds Current Medication Order Review: Intervened Comments: Clozapine TOBACCO CLOTH RECLAIMER obtains from Clozapine [facility] (TOBACCO CLOTH RECLAIMER [id number]) Reached out to provider regarding vancomycin, received one dose in the ER but no order was put in for continued therapy Overnight order for Senna was put in as 8.6 TABLETS instead of 1 tablet (8.6MG). Nursing called to ask about dosing AFTER having given the patient 8.6 tablets. Order was corrected and set to start tomorrow, error reported and provider notified. Pharmacy Antibiotic Review Relevant Labs: Relevant Labs 12/21/23 12/21/23 19:23 18:06 C-Reactive Protein 0.89 H Procalcitonin < 0.1 WBC 11.03 10^3/uL (4.4-10.8) H 12/22/23 07:00 Procalcitonin < 0.1 ng/mL 12/21/23 19:23 Temperature 36.4 C Temperature 36.4 C Temperature 36.7 C Pharmacy Antibiotic Activity: C/S review and Reviewed, no change Comments: Patient is on cefepime 2g q8h, day 1, for cellulitis of right foot. Per morning meeting may possibly be osteomyelitis. Patient also received 1 dose of vancomycin in ED, no order was put in to continue. Reached out to provider. Blood cultures are pending. WBC decreased from 12.5.
[2023-12-22] MEDS: Acetaminophen 325 MG TAB PO (14:53)
[2023-12-22] MEDS: VANCOMYCIN/WATER (PEG) 1.5 GM/300 ML BAG IVPB (15:57)
[2023-12-22] MEDS: rOPINIRole 1 MG TAB PO (15:58)
--- NOTE | 2023-12-22 16:09 | W.PODCONSULT ---
Date of service: 12/22/23 Time of Service: 13:15 Assessment and Plan Assessment and plan (1) Severe sepsis: Status: Acute (2) Cellulitis: Status: Acute (3) Fracture of right great toe: Status: Acute Qualifiers: Encounter type: initial encounter Fracture type: closed Phalanx: proximal Fracture alignment: nondisplaced Qualified Code(s): S92.414A - Nondisplaced fracture of proximal phalanx of right great toe, initial encounter for closed fracture (4) Cellulitis in diabetic foot: Status: Acute (5) Charcot joint of ankle: Status: Acute Qualifiers: Laterality: right Qualified Code(s): M14.671 - Charcot's joint, right ankle and foot (6) Fracture of proximal phalanx of right great toe: Status: Acute (7) Blister (nonthermal), right foot, initial encounter: Status: Acute (8) Blood blister: Status: Acute (9) Atherosclerosis of artery of both lower extremities: Status: Acute Assessment and plan: Patient was seen bedside today. Resting his reports. Patient has a fracture blister to the right hallux with cellulitis at this time there is risk for osteomyelitis to the right hallux. Patient does also have poor circulation. He will benefit from consultation with vascular. Please continue IV antibiotics. I advised patient I recommended puncturing the fracture blister to allow drainage. Patient understood and agreed. The right hallux is cleansed with alcohol. Using an 18-gauge needle the fracture blister was punctured and drained. Cultures were taken and sent. Dressings applied with a Band-Aid. I recommend rest and elevation. Patient was to use a surgical shoe for the duration. PWB to the right foot. No surgical intervention planned at this time we will continue to monitor. Needing MRI if there is no improvement to rule out abscess no abscess appreciated at this time however. History of Present Illness Narrative: 63-year-old male patient with poorly controlled diabetes and obesity consulted for right lower extremity cellulitis and recent fracture. Patient states that he recently stopped his foot and his right hallux has been painful. He denies any open lesions or ulcerations from the right foot. In the ED noted to have severe sepsis. Patient on antibiotics. States he is doing okay denies nausea vomiting chills fever or diarrhea at this time. No other pedal complaints Consults Consult date: 12/22/23 Requesting physician: Nael Parekh Review of Systems Musculoskeletal Comments: Pain in right great toe Integumentary/Breasts Comments: Blood blister right hallux Neurologic Comments: Loss of protective sensation bilateral lower extremity PFSH All Active Problems (Updated 12/22/23 @ 16:17 by Breanne Will DPM) Blood blister (Acute) Blister (nonthermal), right foot, initial encounter (Acute) Fracture of proximal phalanx of right great toe (Acute) Severe sepsis (Acute) DAYNA (obstructive sleep apnea) (Chronic) Cellulitis (Acute) Fracture of right great toe (Acute) Charcot joint of ankle (Acute) Cellulitis in diabetic foot (Acute) Nail dystrophy (Acute) Onychomycosis (Acute) Atherosclerosis of artery of both lower extremities (Acute) Very low level of personal hygiene (Acute) Disorder of the skin and subcutaneous tissue, unspecified (Acute) Encephalopathy (Acute) Urge incontinence (Acute) Polycythemia (Chronic) Hypomagnesemia (Acute) Medication monitoring encounter (Acute) Acute ischemic stroke (Acute) Weight gain (Acute 10/22/16) C1 cervical fracture (Acute) Ambulatory dysfunction (Acute) Alteration in thought content as evidenced by delusions (Acute) Schizophrenia (Chronic) Heel ulcer (Acute) BRENNEN (acute kidney injury) (Acute) Diabetes mellitus, type 2 (Chronic) Chronic schizophrenia (Chronic) Screening for colorectal cancer (Acute) Medical History Dementia History of malignant neoplasm of skin Edema Blood in urine Steatosis of liver Constipation Community acquired pneumonia Venous stasis Nicotine dependence Bipolar disorder Schizoaffective disorder Pneumonia HTN (hypertension) (02/04/16) 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 (10/22/16) Facial basal cell cancer (02/04/16) OAB (overactive bladder) Diverticulosis Chronic constipation Hypothyroidism RLS (restless legs syndrome) Atrial enlargement, bilateral BCC (basal cell carcinoma of skin) Urinary incontinence Afib Vitreous floaters of right eye Non-ST elevation [place] (NSTEMI) Pneumonia Obesity Surgical History Hx of cholecystectomy Tonsillectomy Hydrocelectomy Excision, Lipoma Colonoscopy - MAC (01/25/16) 2010 Family History Mother Alcohol abuse Father Heart disease FH: mental illness Brother Alcohol abuse Paternal Grandfather Heart disease Maternal Grandfather Diabetes Social History Smoking/Tobacco Use Status: Current every day Tobacco Type: cigarettes Smoking risk assessment performed?: Yes Alcohol Intake: current Alcohol Intake frequency: holidays/special occasions only Alcohol type: beer and hard liquor Drug use: Current Sobriety Substance use type: does not use Housing: apartment Current gender identity: male Do you feel safe at home: Yes Do you feel safe in your relationship?: Yes Exam Extrem Other: Bilateral lower extremity physical exam: Derm: Taut, blood blister noted to the dorsal aspect of the right hallux at the level of the hallux IPJ with YAMILA blister erythema and warmth, no crepitus no fluctuance no bogginess no proximal streaking or lymphangitis. No other open lesions or ulcerations noted bilaterally. Some scaliness noted bilaterally. Vascular: DP PT pulses are nonpalpable bilateral lower extremity. There is edema noted bilaterally with venous skin changes bilaterally. Capillary refill time delayed bilaterally left lower extremity: To the touch warmth noted to the right lower extremity hair growth absent. MSK: There is tenderness to palpation noted to the right hallux particularly with the level of the hallux IPJ no pain noted elsewhere. Neurologically patient noted to be absent bilaterally Results Last Vital Signs Temp 97.7 F 12/22/23 15:01 Pulse 80 12/22/23 15:01 Resp 20 12/22/23 15:01 BP 99/66 L 12/22/23 15:01 Pulse Ox 92 12/22/23 15:01 Labs 12/22/23 07:00 12/22/23 07:00 Labs: Laboratory Results - last 24 hr 12/21/23 12/21/23 12/22/23 18:06 19:23 01:30 WBC 12.50 H RBC 5.95 H Hgb 18.6 H Hct 53.5 H MCV 90 MCH 31.3 MCHC 34.8 RDW 12.6 Plt Count 258 MPV 10.8 Immature Gran % 0.8 Neutrophils % 70.1 Lymphocytes % 18.0 Monocytes % 9.1 Eosinophils % 1.4 Basophils % 0.6 Nucleated RBC % 0.0 Absolute Neutrophils 8.76 H Absolute Lymphocytes 2.25 Absolute Monocytes 1.14 H Absolute Eosinophils 0.18 Absolute Basophils 0.08 ESR 13 VBG pH 7.41 VBG pCO2 45 VBG pO2 37 VBG HCO3 29 H VBG Total CO2 30 H VBG O2 Saturation 71 VBG Base Excess 4 H VBG Lactate 2.1 H* Sodium 144 Potassium 3.7 Chloride 103 Carbon Dioxide 30.8 Anion Gap 10.2 BUN 19 H Creatinine 1.0 Est GFR (CKD-EPI 2020) 83.52 Glucose 208 H Calcium 10.3 H Magnesium Total Bilirubin 0.45 AST 14 L ALT 37 Alkaline Phosphatase 116 C-Reactive Protein 0.89 H Total Protein 8.0 Albumin 3.9 Procalcitonin < 0.1 TSH MRSA (TEM-PCR) Negative 12/22/23 12/22/23 07:00 07:00 WBC 11.03 H RBC 5.40 Hgb 16.7 Hct 48.9 MCV 91 MCH 30.9 MCHC 34.2 RDW 12.8 Plt Count 223 MPV 10.6 Immature Gran % Neutrophils % Lymphocytes % Monocytes % Eosinophils % Basophils % Nucleated RBC % Absolute Neutrophils Absolute Lymphocytes Absolute Monocytes Absolute Eosinophils Absolute Basophils ESR VBG pH VBG pCO2 VBG pO2 VBG HCO3 VBG Total CO2 VBG O2 Saturation VBG Base Excess VBG Lactate 0.9 Sodium 141 Potassium 3.9 Chloride 106 Carbon Dioxide 25.5 Anion Gap 9.5 BUN 15 Creatinine 0.8 Est GFR (CKD-EPI 2020) 98.21 Glucose 169 H Calcium 9.1 Magnesium 1.9 Total Bilirubin 0.86 AST 13 L ALT 26 Alkaline Phosphatase 94 C-Reactive Protein Total Protein 6.8 Albumin 3.2 L Procalcitonin TSH Cancelled 0.59 MRSA (TEM-PCR) Imaging Imaging Studies: Patient Name: Judd Hathaway Unit #: [id number] Loc: ER Ordering Provider: Status: [facility] ER Primary Care Provider: Nisha Carrillo M.D. Date of Exam: 12/21/23 Sex: M : 1960 Age: 63 Exam(s) PROCEDURE INFORMATION: Exam: CT Right Lower Extremity With Contrast, Foot Exam date and time: 12/21/2023 7:48 PM Age: 63 years old Clinical indication: Pain; Right; Patient HX: R foot infection, concern for gas TECHNIQUE: Imaging protocol: CT of the right lower extremity with intravenous contrast was performed. Exam focused on the foot. Radiation optimization: All CT scans at this facility use at least one of these dose optimization techniques: automated exposure control; mA and/or kV adjustment per patient size (includes targeted exams where dose is matched to clinical indication); or iterative reconstruction. Contrast material: ONIPAQUE 350; Contrast volume: 100 ml; Contrast route: INTRAVENOUS (IV); COMPARISON: CR XR FOOT RT COMPLETE 21/12/2023 18:34 FINDINGS: Bones/joints: The joints maintain anatomic alignment.Fracture deformity of the distal tibia and fibula of unknown acuity. Edema in the subcutaneous soft tissues along the dorsum of the foot, area of the metatarsals, along the plantar fascia and medial adductor muscles of the foot. There are hammer toes of the 2nd - 5th digits. Intra-articular fracture of the head of the 1st proximal phalanx that appears acute or subacute. Soft tissues: No gas is seen in soft tissues. IMPRESSION: 1. No gas is seen in soft tissues of the right foot. 2. Edema in the subcutaneous soft tissues along the dorsum of the foot, area of the metatarsals, along the plantar fascia and medial adductor muscles of the foot, that in the appropriate clinical setting, is consistent with cellulitis. No periosteal reaction to suggest osteomyelitis at this time. 3. Fracture deformity of the distal tibia and fibula of unknown acuity. 4. Intra-articular fracture of the head of the 1st proximal phalanx that appears acute or subacute.
--- NOTE | 2023-12-22 17:32 | CHAPLAIN ---
Judd was sitting up in the chair watching a movie when I visited. He asked me about bring him a Bible and then asked if I read to him from the Bible. It was interested in the part where Jews flee [place]. I read a few different parts from Natalie and Exodus. Judd has some knowledge from [place], [place] and ancient, he said from watching history. He share some personal history about his parents and asked if I'd visit again tomorrow, which I will.
--- NOTE | 2023-12-22 17:39 | PT.INIE ---
PT Notes Visit Reasons: Cellulitis right foot, Fracture right great toe Physical Therapy Inpatient Initial Evaluation Date: 12/23/2023 Referring Doctor: Nael Parekh MD PT Orders: PT CONSULT:Fall Safety assessment Precautions: Fall. Standard. Per Dr. Will, PWB on the R LE with AD. Patient Profile/Admitting Diagnosis:? Judd is a 61-year-old male with chronic schizophrenia who presented to the ED on 12/21/2023 due to R foot pain and swelling. Patient is diagnosed with cellulitis in diabetic foot, Charcot joint of ankle with recent tib-fib fracture, non-displaced fracture of the proximal phalanx of R great toe, severe sepsis, non-thermal blister of R foot, and atherosscleroisis of B LE areteries. PMHX: All Active Problems (Updated 12/22/23 @ 00:17 by Julius Calderon) DAYNA (obstructive sleep apnea) (Chronic) Cellulitis (Acute) Fracture of right great toe (Acute) Charcot joint of ankle (Acute) Cellulitis in diabetic foot (Acute) Nail dystrophy (Acute) Onychomycosis (Acute) Atherosclerosis of artery of both lower extremities (Acute) Very low level of personal hygiene (Acute) Diabetes mellitus, type 2 (Chronic) Disorder of the skin and subcutaneous tissue, unspecified (Acute) Encephalopathy (Acute) Urge incontinence (Acute) Polycythemia (Chronic) Hypomagnesemia (Acute) Schizophrenia (Chronic) Weight gain (Acute 10/22/16) Screening for colorectal cancer (Acute) Heel ulcer (Acute) Medication monitoring encounter (Acute) Acute ischemic stroke (Acute) C1 cervical fracture (Acute) Chronic schizophrenia (Chronic) Ambulatory dysfunction (Acute) Alteration in thought content as evidenced by delusions (Acute) BRENNEN (acute kidney injury) (Acute) Medical History Pneumonia Dementia History of malignant neoplasm of skin Edema Blood in urine Steatosis of liver Constipation Community acquired pneumonia Venous stasis Nicotine dependence Bipolar disorder Schizoaffective disorder HTN (hypertension) (02/04/16) 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 (10/22/16) Facial basal cell cancer (02/04/16) OAB (overactive bladder) Diverticulosis Chronic constipation Hypothyroidism RLS (restless legs syndrome) Atrial enlargement, bilateral BCC (basal cell carcinoma of skin) Urinary incontinence Afib Vitreous floaters of right eye Non-ST elevation [place] (NSTEMI) Obesity Surgical History Hx of cholecystectomy Tonsillectomy Hydrocelectomy Excision, Lipoma Colonoscopy - MAC (01/25/16) 2010 Social History/Home Situation: Lives alone in the basement of an apartment building with 2 stone steps to enter.? Ambulatory in the community using a single-point cane. Equipment Owned/DME: Single-point cane Subjective: Verbalized I earn 1,500 dollars a week at start of session. Just finished supper and is okay to be walked to the bathroom using his front-wheeled walker. Liked supper. Agreed that his wheelchair little too low and shallow for him. Denied pain in B feet. Objective: General Observation: Seated on bedside chair. Mental Status: Alert and oriented as to person and place. Able to follow single step commands. Pain: Denied pain in R foot and ankle with short distance ambulation Vital Signs: WNL as closely monitored by nursing staff, HR high of 110 bpm during session ROM: Right Upper Extremity: Shoulder Flexion WFL. Shoulder abduction WFL. Elbow flexion WFL. Wrist flexion WFL. Functional opening and closing of hand WFL. Left Upper Extremity: Shoulder Flexion WFL. Shoulder abduction WFL. Elbow flexion WFL. Wrist flexion WFL. Functional opening and closing of hand WFL. Right Lower Extremity: Hip flexion WFL. Hip abduction WFL. Knee flexion WFL. Ankle dorsiflexion WFL. Ankle plantarflexion WFL. Left Lower Extremity: Hip flexion WFL. Hip abduction WFL. Knee flexion WFL. Ankle dorsiflexion WFL. Ankle plantarflexion WFL. Strength: Right Upper Extremity: Shoulder flexors 4-/5. Shoulder abductors 4-/5. Shoulder ER 4-/5. Shoulder IR 4-/5. Forearm pronators 4-/5. Forearm supinators 4-/5. Elbow flexors 4-/5. Elbow extensors 4-/5. Medical Massage Therapist weak but functional. Left Upper Extremity: Shoulder flexors 4-/5. Shoulder abductors 4-/5. Shoulder ER 4-/5. Shoulder IR 4-/5. Forearm pronators 4-/5. Forearm supinators 4-/5. Elbow flexors 4-/5. Elbow extensors 4-/5. Medical Massage Therapist weak but functional. Right Lower Extremity: Hip flexors 4-/5. Hip abductors 3+/5. Hip external rotators 3+/5. Hip internal rotators 3+/5. Knee flexors 3-/5. Knee extensors 3-/5. Ankle dorsiflexors/evertors 3-/5. Ankle plantarflexors/invertors 3-/5. Left Lower Extremity: Hip flexors 4-/5. Hip abductors 3+/5. Hip external rotators 3+/5. Hip internal rotators 3+/5. Knee flexors 3-/5. Knee extensors 3-/5. Ankle dorsiflexors/evertors 3-/5. Ankle plantarflexors/invertors 3-/5. Bed Mobility/Transfers: Minimal cueing provided for use of B hands as needed for support, movement sequence, AD management, and posture to reduce fall risk and minimize pain report Sit to stand stand by assist with FWW Stand to sit stand by assist with FWW Bed to chair stand by assist with FWW Gait: Patient completed 15 feet + 15 feet with FWW. Stand by assist provided but needed moderate verbal cueing to walk with heel only as patient was not fully compliant of the prescribed WB precaution. Safety awareness impaired. Balance: Static Sitting: Normal Dynamic Sitting: Normal Static Standing: Fair Dynamic Standing: Fair Special Tests: Mobility Limitations Standardized Measure [facility] 6 clicks Basic Mobility Inpatient Short Form: Raw Score: 24 ? CMS Score: 0% deficit ? ? Informed Consent/Education:? Patient was instructed in purpose of PT consult and plan of care. Agreeable to proceed with established PT POC to achieve personal goals. Assessment: Able to follow single commands but can be compulsive. Needs constant reinforcement with weight bearing precaution. Will require frequent verbal cueing from nursing staff to continue to encourage partial weight bearing. Doubt that patient will be able to fully comply with recommended partial weight bearing at home alone and therefore may require short-term rehab placement to ensure that cueing is given to allow fracture to heal. Patient presents with clinical signs and symptoms consistent with current/admitting diagnoses that have resulted to mobility limitations, gait instability, generalized weakness, and overall ADL decline as demonstrated by the following impairment level findings: 1.? Decreased strength to BUE/LE? major muscle groups 2.? Impaired standing balance 3.? Impaired activity tolerance 4. PWB on the R LE with AD per tungsten tender Impairments are contributing to the following functional limitations: 1.? Difficulty with ambulation 2.? Increased completion time for mobility ADL performance 3.? Increased risk for falls 4.? Difficulty with managing steps alone safely Patient is assessed as a 52025 moderate complexity based on the following: History: 60-year-old male with past medical history as indicated above Examination: Demonstrable impairment in strength, balance, and mobility level with underlying impairments and functional limitations as exhibited above Presentation: Evolving Decision Makin moderate complexity Goals: Goals X1 week 1. Supine-Sit independent 2. Sit-Supine independent 3. Sit-Stand independent 4. Stand-Sit independent with SPC 5. Bed-Chair independent with SPC 6. Chair-Bed independent with SPC 7.? Independent? with gait on level surface with use of SPC for at least 150 feet without report of pain nor dyspnea with Chitina J collar on 8.? Independent? with stair negotiation while holding onto 1? rails for at least 3 steps without report of pain nor dyspnea with Chitina J collar on 9. Good static and dynamic standing balance/tolerance with Chitina J collar on Plan of Care/Treatment Plan: 1-2x/day, 7 days/week x 1 week. Plan of care has been reviewed with the AMMUNITION ASSEMBLY II LABORER providing the service under Physical Therapy direction. Initiate Physical Therapy intervention for pain management as needed, strengthening, bed mobility, transfers, gait, stairs, balance training, and use of assistive device. DISCHARGE RECOMMENDATIONS: [] ? Home with no services [] [] ? Home with services [] [] ? SNF for continued rehabilitation [] [] ? [facility] [] [] ? SNF versus LTC based on ability to participate and progress [] [X] PT vs. short-term rehab vs. supervised home setting to reduce fall risk TREATMENT CODE/TIME: 32403 x 26 minutes for 1 unit (17:39-18:05). Thank you for the opportunity to participate in the care of this patient. Karli Burrows PT, DPT, CLT [facility] [place], [place]
[2023-12-22] MEDS: Atorvastatin 10 MG TAB PO (20:43)
[2023-12-23] VITALS: BP 111/69; PULSE 70; RESP 18; TEMP 36.6; O2SAT 93
[2023-12-23] MEDS: VANCOMYCIN/WATER (PEG) 1.5 GM/300 ML BAG IVPB ×2 (01:58→15:17)
[2023-12-23 04:21] VITALS: BP 94/55; PULSE 70; RESP 18; TEMP 36.8; O2SAT 94
[2023-12-23] MEDS: CEFEPIME 2 GM in Normal Saline 100 ML IVPB ×3 (06:02→22:14)
[2023-12-23] MEDS: Levothyroxine 125 MCG TAB PO (06:03)
[2023-12-23 07:15] LABS: HCT 48.6 % (40.0-50.0); HGB 16.5 g/dL (13.5-17.5); MCV 91 fL (80-95); MPV 10.9 fL (8.0-11.0); Platelet Count 213 10^3/uL (130-400); RBC 5.33 10^6/uL (4.36-5.78); RDW 12.6 % (11.8-14.1); RDW-SD 41.9 fL; WBC 8.51 10^3/uL (4.4-10.8)
[2023-12-23 07:23] LABS: Anion Gap 10.1 mmol/L (3-11); BUN 17 mg/dL (7-18); CO2 24.9 mmol/L (21.0-32.0); Calcium 8.9 mg/dL (8.5-10.1); Chloride 105 mmol/L (98-107); Estimated GFR 83.52 (mL/min/1.73m2); Glucose 161 mg/dL (74-106); Potassium 3.6 mmol/L (3.5-5.1); Sodium 140 mmol/L (136-145)
[2023-12-23 08:09] VITALS: BP 110/68; PULSE 80; RESP 20; TEMP 36.3; O2SAT 92
[2023-12-23] MEDS: Cholecalciferol (Vitamin D3) 1,000 UNIT TAB 2000 UNITS PO (08:47)
[2023-12-23] MEDS: Empaglifozin 25 MG TAB PO (08:48)
[2023-12-23] MEDS: Cyanocobalamin 500 MCG TAB 1000 MCG PO (08:48)
[2023-12-23] MEDS: Docusate Sodium 100 MG CAP 200 MG PO ×2 (08:48→20:49)
[2023-12-23] MEDS: Furosemide 40 MG TAB PO (08:48)
[2023-12-23] MEDS: Insulin Aspart 300 UNITS/3 ML PEN SC ×4 (08:49→22:55)
[2023-12-23] MEDS: Ketoconazole 2% CREAM 15 GM TUBE TP (08:50)
[2023-12-23] MEDS: Nicotine 14 MG/24 HR PATCH TD (08:50)
[2023-12-23] MEDS: Magnesium Chloride 64 MG TABCR PO (08:50)
[2023-12-23] MEDS: Metoprolol 12.5 MG TAB PO ×2 (08:50→20:50)
[2023-12-23] MEDS: Normal Saline Flush 10 ML SYR IVP ×3 (08:51→20:50)
[2023-12-23] MEDS: Potassium Chloride 10 MEQ CAPCR PO (08:51)
[2023-12-23] MEDS: Senna TAB 1 TAB PO ×2 (08:52→20:49)
[2023-12-23] MEDS: Rivaroxaban 10 MG TABLET 20 MG PO (08:52)
--- NOTE | 2023-12-23 09:25 | CMPROGNOTE_ITS ---
Date of service: 12/23/23 Time of Service: 09:25 Care Management Progress Note Progress Note Text Progress Note Text: Judd was ambulating with PT when CM first met with him. His gait appeared steady however he was full weight-bearing on the right foot. He is supposed to be partial weigh-bearing only. Judd had agreed to consider going to short term rehab prior to returning home. Referrals have not been sent as they were awaiting the PT evaluation. Referrals will now be sent to [facility]. CM again discussed the issue with Judd who is still in agreement to go to rehab if he receives a bed offer. Discharge Potential Discharge Needs: PCP F/U Appt and Surgical F/U Appt Anticipated Barriers to Discharge: Bed availability Patient/Family Education Needs: Review discharge instructions, discuss Ask Me Three Transportation: Private vehicle Plan: Anticipate Judd will return home with new services, and a resumption of his caregiver support. He has agreed to go to a SNF for short term rehab however. Referrals will be sent to [facility]. If he receives a bed offer, it is likely he will accept it and transfer to a SNF. He will transport via [facility] private vehicle, coordinated by CM. He will follow up with his PCP and discharge plan of care. CM will continue to follow. SDOH(Care Management) Screening Will the Patient Participate in the Screening?: Yes Do you worry about having a steady place to live?: no Problems where you live: no known problems In the past 12 months, have you had to go without electric, gas, oil or water in your home?: no Have you or anyone in your house had to go without enough food to eat?: no Has lack of transportation kept you from medical appointments or from doing things needed for daily living?: no Has anyone in your support network made you feel unsafe for any reason?: no
[2023-12-23 11:09] VITALS: BP 96/72; PULSE 65; RESP 20; TEMP 36.3; O2SAT 92
[2023-12-23] MEDS: Acetaminophen 325 MG TAB PO (12:08)
--- NOTE | 2023-12-23 13:18 | W.PM.PROGNOT ---
Date of Service Date of service: 12/23/23 Time of Service: 13:19 Assessment and Plan Assessment and plan (1) Cellulitis in diabetic foot: Start date: 12/21/23 Status: Acute Assessment and plan: -recent past for fracture right ankle which was repaired with orthopedics but he was walking on that lower extremity sooner than advised with poor follow-up. -found to have subacute or acute intra-articular fracture of the head first proximal phalanx with swelling consistent with cellulitis but no gas formation. -Patient was on cefpodoxime but there is no mention of being seen as an outpatient and he came to the ED for evaluation of failed outpatient therapy for cellulitis -admitting physician discussed with orthopedics who advised there was no different treatment than treating cellulitis with his fractures with no orthopedic consultation needed. -was started on vanc and cefepime on admission, will continue until aspirate culture results are available -[facility] Radiologist called to report additional findings not on initial Vrad read; -acute/subacute fracture of prox phalanx of right 2nd toe -significant degenerative changes in the right great toe metatarsophalangeal joint (though not in report, it was mentioned to me that he could not exclude osteo) -Podiatry consulted; aspirated fracture blister, will follow-up culture results (2) Severe sepsis: Status: Acute Assessment and plan: -patient met criteria for severe sepsis on admission with WBC 12.5, HR 91, initial lactic acid of 2.1 and right great toe cellulitis as source of infection as noted above -sepsis resolved as repeat lactic down to 0.9 and WBC down to 11 on AM 7/16 -treatment regimen for cellulitis as noted above (3) Fracture of right great toe: Start date: 12/21/23 Status: Acute Assessment and plan: -as noted above Qualifiers: Encounter type: initial encounter Fracture type: closed Phalanx: proximal Fracture alignment: nondisplaced Qualified Code(s): S92.414A - Nondisplaced fracture of proximal phalanx of right great toe, initial encounter for closed fracture (4) Charcot joint of ankle: Start date: 12/21/23 Status: Acute Assessment and plan: -Patient has had recent fracture of his tib-fib with poor follow-up and early ambulation with what appears to be a Charcot joint. -This is early in the process and may advance with his diabetes at neuropathy with poor control. Qualifiers: Laterality: right Qualified Code(s): M14.671 - Charcot's joint, right ankle and foot (5) Diabetes mellitus, type 2: Status: Chronic Assessment and plan: -Hold outpatient therapy -SSI, CCD -Long-term he needs better control with his last hemoglobin A1c at 8.7. Qualifiers: Diabetes mellitus termite exterminator insulin use: without termite exterminator use Diabetes mellitus complication status: without complication Qualified Code(s): E11.9 - Type 2 diabetes mellitus without complications (6) Afib: Assessment and plan: -Controlled rate with continued outpatient medical therapy and Xarelto for anticoagulation. Qualifiers: Atrial fibrillation type: persistent (not longstanding) Qualified Code(s): I48.19 - Other persistent atrial fibrillation (7) Polycythemia: Status: Chronic Assessment and plan: -Patient needs therapeutic phlebotomies and closer follow-up with aggressive treatment of his sleep apnea with weight loss long-term. He should avoid iron supplements and iron foods. (8) Hypothyroidism: Assessment and plan: -Check TSH and continue outpatient supplement. Qualifiers: Hypothyroidism type: acquired Qualified Code(s): E03.9 - Hypothyroidism, unspecified (9) DAYNA (obstructive sleep apnea): Status: Chronic Assessment and plan: -Continue CPAP at home settings. Subjective Subjective Interval history since last seen: Patient states that he is doing well and is looking forward to going to [facility] once a bed is available. Exam Narrative Exam Narrative: chronically ill appearing older gentleman sitting up in the chair in no acute distress, awake, alert, oriented to person, place and time, heart RRR, lungs CTAB, abdomen soft, non-tender, non-distended, signs of bilateral chronic venous insufficiency, erythema and swelling of the right great and second toes with erythema extending to just below the ankle Objective Last Vital Signs Temp 97.3 F L 12/23/23 11:09 Pulse 65 12/23/23 11:09 Resp 20 12/23/23 11:09 BP 96/72 L 12/23/23 11:09 Pulse Ox 92 12/23/23 11:09 Laboratory Results - last 24 hr 12/23/23 06:30 WBC 8.51 RBC 5.33 Hgb 16.5 Hct 48.6 MCV 91 MCH 31.0 MCHC 34.0 RDW 12.6 Plt Count 213 MPV 10.9 Sodium 140 Potassium 3.6 Chloride 105 Carbon Dioxide 24.9 Anion Gap 10.1 BUN 17 Creatinine 1.0 Est GFR (CKD-EPI 2020) 83.52 Glucose 161 H Calcium 8.9 Time Spent with Patient Time Spent with Patient: >50 minutes Time was spent: preparing to see the patient(eg.review tests), obtaining and/or reviewing separately otained hiistory, ordering medications,tests, procedures, referring, communicating with other health wound care technician, indepentently interpreting results, counseling the patient and care coordination
--- NOTE | 2023-12-23 14:07 | W.PM.PROGNOT ---
Date of Service Date of service: 12/23/23 Time of Service: 12:00 Assessment and Plan Assessment and plan (1) Severe sepsis: Status: Acute (2) Cellulitis: Status: Acute (3) Fracture of right great toe: Status: Acute Qualifiers: Encounter type: initial encounter Fracture type: closed Phalanx: proximal Fracture alignment: nondisplaced Qualified Code(s): S92.414A - Nondisplaced fracture of proximal phalanx of right great toe, initial encounter for closed fracture (4) Cellulitis in diabetic foot: Status: Acute (5) Charcot joint of ankle: Status: Acute Qualifiers: Laterality: right Qualified Code(s): M14.671 - Charcot's joint, right ankle and foot (6) Fracture of proximal phalanx of right great toe: Status: Acute (7) Blister (nonthermal), right foot, initial encounter: Status: Acute (8) Blood blister: Status: Acute (9) Atherosclerosis of artery of both lower extremities: Status: Acute Assessment and plan: Patient seen resting comfortably. He has an open fracture to the right hallux. I recommend IV antibiotics he will require at least 6 weeks of IV antibiotics. Today, cellulitis appears to be resolving however not completely resolved yet. White count trending down Dressings changed today with xeroform, 4x4, kerlix and LESA wrap. No surgical intervention planned or indicated at this time. Will continue to monitor however. No surgical intervention planned or indicated at this time. Patient to follow up outpatient with in 1 week of discharge. Subjective Subjective Interval history since last seen: Patient seen bedside today. Resting comfortably. Would like to know when he can go home. Denies pain. Exam Extrem Other: Bilateral lower extremity physical exam: Derm: Small superficial thickness ulceration noted to the dorsal aspect of the right hallux at the level of the hallux IPJ with resolving erythema and warmth, no crepitus no fluctuance no bogginess no proximal streaking or lymphangitis. No other open lesions or ulcerations noted bilaterally. Some scaliness noted bilaterally. Vascular: DP PT pulses are nonpalpable bilateral lower extremity. There is edema noted bilaterally with venous skin changes bilaterally. Capillary refill time delayed bilaterally left lower extremity: To the touch warmth noted to the right lower extremity hair growth absent. MSK: There is tenderness to palpation noted to the right hallux particularly with the level of the hallux IPJ no pain noted elsewhere. Neurologically patient noted to be absent bilaterally Objective Last Vital Signs Temp 97.3 F L 12/23/23 11:09 Pulse 65 12/23/23 11:09 Resp 20 12/23/23 11:09 BP 96/72 L 12/23/23 11:09 Pulse Ox 92 12/23/23 11:09 Laboratory Results - last 24 hr 12/23/23 06:30 WBC 8.51 RBC 5.33 Hgb 16.5 Hct 48.6 MCV 91 MCH 31.0 MCHC 34.0 RDW 12.6 Plt Count 213 MPV 10.9 Sodium 140 Potassium 3.6 Chloride 105 Carbon Dioxide 24.9 Anion Gap 10.1 BUN 17 Creatinine 1.0 Est GFR (CKD-EPI 2020) 83.52 Glucose 161 H Calcium 8.9 Time Spent with Patient Time Spent with Patient: 25-34 minutes Time was spent: preparing to see the patient(eg.review tests), obtaining and/or reviewing separately otained hiistory, ordering medications,tests, procedures, referring, communicating with other health patient care associate, indepentently interpreting results, counseling the patient and care coordination
[2023-12-23 14:15] LABS: Vancomycin, Trough 13.3 ug/mL (10.0-20.0)
[2023-12-23] MEDS: rOPINIRole 1 MG TAB PO (14:21)
--- NOTE | 2023-12-23 16:16 | TELEFU_ITS ---
Date of service: 12/23/23 Time of Service: 14:20 Nutrition Note NOTE: Judd is a 63yo male admitted for sepsis, cellulitis, charcot foot from complications of his diabetes - last a1c was 8.7 last July. PT missing front teeth, denies concerns with chewing and swallowing however. Appetite good with good po intake reported at meals. Pt with 10kg wt gain documented over the last 4 months - abdomen appears bloated - pt reports constipation with last BM last thursday and reports hard stool - pt getting PEG and MOM prn this admission, history of dehydration - encouraged fluids. Pt doesn't check glucose at home. PT on max of both metfromin xr and jardiance with continued poor control. Is interested in losing weight. Gave pt my card to call for outpatient appt - will follow with phone call after discharge to arrange if he doesn't call. PT might benefit from starting does of basal insulin AM or HS upon discharge. will monitor sugars and continue to offer education as approptiate and desired.- . Time Spent in Nutritional Counseling and Treatment: 15 minutes
--- NOTE | 2023-12-23 17:07 | PTTR_ITS ---
PT Notes Visit Reasons: Cellulitis right foot, Fracture right great toe Physical Therapy Inpatient Treatment Note Date: 12/23/2023 Precautions: Fall. Standard. Per Dr. Will, PWB on the R LE with AD. Subjective: No report of pain. Wondering what is for breakfast. Objective: General Observation: Seated on bedside chair. Mental Status: Alert and oriented as to person and place. Able to follow single step commands. Pain: Denied pain in R foot and ankle with short distance ambulation Vital Signs: WNL as closely monitored by nursing staff, HR high of 110 bpm during session Bed Mobility/Transfers: Minimal cueing provided for use of B hands as needed for support, movement sequence, AD management, and posture to reduce fall risk and minimize pain report Sit to stand supervision with FWW Stand to sit supervision with FWW Bed to chair supervision with FWW Gait: Patient completed 300 feet with FWW. Stand by assist provided but needed moderate verbal cueing to walk with heel only. Patinent unable to consistently comply with weight bearing precautions. Balance: Static Sitting: Normal Dynamic Sitting: Normal Static Standing: Fair Dynamic Standing: Fair Assessment: Patient with impaired safety awareness/judgment skills, impulsivity, and inability to remember safety recommendations. Able to follow single commands. Needs constant reinforcement with weight bearing precaution. Will require frequent verbal cueing from nursing staff to continue to encourage partial weight bearing. Doubt that patient will be able to fully comply with recommended partial weight bearing at home alone and therefore may require short-term rehab placement to ensure that cueing is given to allow fracture to heal. Plan of Care/Treatment Plan: 1-2x/day, 7 days/week x 1 week. Plan of care has been reviewed with the EMERGENCY COMMUNICATIONS DISPATCHER providing the service under Physical Therapy direction. Initiate Physical Therapy intervention for pain management as needed, strengthening, bed mobility, transfers, gait, stairs, balance training, and use of assistive device. DISCHARGE RECOMMENDATIONS: [] ? Home with no services [] [] ? Home with services [] [] ? SNF for continued rehabilitation [] [] ? [facility] [] [] ? SNF versus LTC based on ability to participate and progress [] [X] HH PT vs. short-term rehab vs. supervised home setting to reduce fall risk TREATMENT CODE/TIME: 32191 x 33 minutes for 2 units (17:07-17:40).
--- NOTE | 2023-12-23 17:53 | CHAPLAIN ---
Judd showed me that his foot was wrapped and he said it'll need to stay wrapped for a few days, and that he has a follow up appointment later. He said he'll probably go home on Thursday. Judd was eating dinner when I stopped in. He asked me to read from the Bible again. I read some Psalms. Judd told me that his parents and siblings have , and that he is the last one standing. He talked about what movies he watched today and shared some more family history.
[2023-12-23] MEDS: Normal Saline 1,000 ML 125 ML IV (19:00)
[2023-12-23 20:14] VITALS: BP 126/78; PULSE 61; RESP 18; TEMP 36.7; O2SAT 92
[2023-12-23] MEDS: Atorvastatin 10 MG TAB PO (20:50)
[2023-12-24] MEDS: VANCOMYCIN/WATER (PEG) 1.5 GM/300 ML BAG IVPB (03:05)
[2023-12-24] MEDS: Normal Saline 1,000 ML 125 ML IV ×2 (03:05→09:05)
[2023-12-24 05:31] VITALS: BP 140/76; PULSE 78; RESP 20; TEMP 37; O2SAT 92
[2023-12-24] MEDS: CEFEPIME 2 GM in Normal Saline 100 ML IVPB (06:02)
[2023-12-24] MEDS: Levothyroxine 125 MCG TAB PO (06:04)
[2023-12-24 07:22] LABS: HCT 49.3 % (40.0-50.0); HGB 17.3 g/dL (13.5-17.5); MCH 31.6 pg (27.0-33.0); MCHC 35.1 % (32.0-36.0); MCV 90 fL (80-95); MPV 10.8 fL (8.0-11.0); Platelet Count 212 10^3/uL (130-400); RBC 5.48 10^6/uL (4.36-5.78); RDW 12.4 % (11.8-14.1); WBC 8.28 10^3/uL (4.4-10.8)
[2023-12-24 07:40] LABS: Anion Gap 7.6 mmol/L (3-11); BUN 19 mg/dL (7-18); CO2 26.4 mmol/L (21.0-32.0); CREATININE 0.9 mg/dL (0.70-1.30); Calcium 8.9 mg/dL (8.5-10.1); Chloride 107 mmol/L (98-107); Estimated GFR 94.78 (mL/min/1.73m2); Glucose 168 mg/dL (74-106); Potassium 3.8 mmol/L (3.5-5.1); Sodium 141 mmol/L (136-145)
[2023-12-24 08:08] VITALS: BP 115/66; PULSE 72; RESP 20; TEMP 36.1; O2SAT 93
[2023-12-24] MEDS: Insulin Aspart 300 UNITS/3 ML PEN SC ×2 (08:18→12:36)
[2023-12-24] MEDS: Nicotine 14 MG/24 HR PATCH TD (08:19)
[2023-12-24] MEDS: Normal Saline Flush 10 ML SYR IVP (08:22)
[2023-12-24] MEDS: Potassium Chloride 10 MEQ CAPCR PO (08:23)
[2023-12-24] MEDS: Cholecalciferol (Vitamin D3) 1,000 UNIT TAB 2000 UNITS PO (08:23)
[2023-12-24] MEDS: Metoprolol 12.5 MG TAB PO (08:23)
[2023-12-24] MEDS: Docusate Sodium 100 MG CAP 200 MG PO (08:23)
[2023-12-24] MEDS: Magnesium Chloride 64 MG TABCR PO (08:23)
[2023-12-24] MEDS: Rivaroxaban 10 MG TABLET 20 MG PO (08:23)
[2023-12-24] MEDS: Empaglifozin 25 MG TAB PO (08:24)
[2023-12-24] MEDS: Triamcinolone 0.1% CR 15 GM TUBE TP (08:24)
[2023-12-24] MEDS: Senna TAB 1 TAB PO (08:24)
[2023-12-24] MEDS: Ketoconazole 2% CREAM 15 GM TUBE TP (08:24)
[2023-12-24] MEDS: Furosemide 40 MG TAB PO (08:24)
[2023-12-24] MEDS: Cyanocobalamin 500 MCG TAB 1000 MCG PO (08:25)
[2023-12-24 11:05] VITALS: BP 105/70; PULSE 60; RESP 20; TEMP 36; O2SAT 95
--- NOTE | 2023-12-24 11:34 | DSE_ITS ---
Date of service: 12/24/23 Time of Service: 11:35 DS: Diagnosis Discharge Diagnosis (1) Severe sepsis: Status: Acute (2) Cellulitis: Status: Acute (3) Fracture of right great toe: Status: Acute (4) Cellulitis in diabetic foot: Status: Acute (5) Charcot joint of ankle: Status: Acute (6) Fracture of proximal phalanx of right great toe: Status: Acute (7) Blister (nonthermal), right foot, initial encounter: Status: Acute (8) Blood blister: Status: Acute (9) Atherosclerosis of artery of both lower extremities: Status: Acute Discharge Plan Disposition Patient Disposition: [facility](SNF) Condition: Good Discharge Details Reason For Visit: Cellulitis right foot, Fracture right great toe Admit Date/Time: 12/21/23 22:32 Admit Provider: Julius Calderon Attending Provider: Julius Calderon Primary Care Provider: Nisha Carrillo [facility] Course Hospital Course: Patient initially presented with signs and symptoms concerning for right foot cellulitis was also found to have acute or subacute right great and second toe fractures. He also had a fracture blister that was aspirated which is preliminary lady growing gram-positive cocci. He has been on vancomycin and cefepime and has had a significant improvement in his cellulitis. However, given that the patient has experienced significant improvement it was determined that he was stable for discharge to subacute rehab and will be transitioned to oral doxycycline for an additional 7 days of treatment. Additionally, while the patient carries a diagnosis of DAYNA he is non-compliant with his CPAP machine at home and does not use it. Home Meds and New Rx's Prescriptions: New doxycycline hyclate 100 mg capsule 100 mg PO BID Qty: 14 0RF Continued magnesium chloride 64 mg magnesium tablet 64 mg PO DAILY atorvastatin 10 mg tablet 10 mg PO DAILY melatonin 3 mg capsule 3 mg PO HS PRN nicotine 14 mg/24 hr patch 24 hour 1 patch transdermal DAILY nicotine 21 mg/24 hr patch 24 hour 1 patch transdermal DAILY senna 8.6 mg capsule 8.6 mg PO BID triamcinolone acetonide 0.1 % cream 1 applic topical BID cyanocobalamin (vitamin B-12) 1,000 mcg capsule 1,000 mcg PO DAILY ergocalciferol (vitamin D2) 1,250 mcg (50,000 unit) capsule 1,250 mcg PO .twice a week Invega Sustenna 156 mg/mL syringe 156 mg IM QMONTH Jardiance 25 mg tablet 25 mg PO DAILY levothyroxine 125 mcg tablet 125 mcg PO DAILY polyethylene glycol 3350 [Miralax] 17 gram/dose powder 17 g PO DAILY PRN docusate sodium [Stool Softener] 100 mg capsule 200 mg PO BID cholecalciferol (vitamin D3) 50 mcg (2,000 unit) capsule 50 mcg PO DAILY urea 40 % cream 1 applic topical DAILY Qty: 28.35 3RF Rx Instructions: Apply 1gram to thickened toenails once daily - at opposite time of day from ketoconazole. ketoconazole 2 % cream 1 applic topical DAILY Qty: 30 11RF Rx Instructions: Apply 1gram to toenails once daily ropinirole 1 mg Tablet 1 mg PO DIRECTED Rx Instructions: DAILY at 1600 clozapine 100 mg tablet 100 mg PO DAILY AM clozapine 200 mg tablet 200 mg PO HS furosemide 40 mg tablet 40 mg PO QAM Xarelto 20 mg tablet 20 mg PO DAILY potassium chloride 10 mEq capsule, extended release 10 meq PO DAILY metformin 500 mg tablet extended release 24 hr 2,000 mg PO DAILY metoprolol succinate 25 mg Tablet Extended Release 24 Hr 12.5 mg PO DAILY Qty: 30 0RF Patient Comments: unsure of dose Discontinued cefpodoxime 200 mg tablet 200 mg PO BID Rx Instructions: must administer with a meal/food Discharge Instructions Activity:: Activity as Tolerated Equipment/Supplies:: No Equipment Needed Diet:: As Tolerated Discharge Orders Discharge Orders: Discharge Order (Routine); Ordered 12/24/23 Ordered By: Nael Parekh DS: Summary Time Spent with Patient providing and/or coordinating discharge services: Greater than 30 minutes Status at Discharge Functional status at discharge: independent ambulation Overall status at discharge: patient is back to baseline Mental Status: mental status grossly normal Speech and Movement: speech and movement normal Mood: congruent mood Affect: normal affect Quality:SDOH Health Related Social Needs: Health related social needs inadequate housing, risk o f homeless Exam Narrative Exam Narrative: chronically ill appearing older gentleman sitting up in the chair in no acute distress, awake, alert, oriented to person, place and time, heart RRR, lungs CTAB, abdomen soft, non-tender, non-distended, signs of bilateral chronic venous insufficiency, erythema and swelling of the right great and second toes with erythema extending to just below the ankle Psych Mental Status: mental status grossly normal Speech and Movement: speech and movement normal Mood: congruent mood Affect: normal affect DS: Data Vitals/I&O Vitals and I&O: Vital Signs Temperature 96.8 F L 12/24/23 11:05 Temperature Source Temporal Artery Scan 12/24/23 11:05 Pulse 60 12/24/23 11:05 Pulse Rhythm Regular 12/24/23 10:48 Pulse 77 12/21/23 23:16 Respiratory Rate 20 12/24/23 11:05 Respiratory Effort Normal, Non-Labored 12/24/23 10:48 Respiratory Depth Normal 12/24/23 10:48 Respiratory Pattern Normal 12/24/23 10:48 Blood Pressure 105/70 12/24/23 11:05 Blood Pressure Mean 84 12/21/23 23:46 Pulse Oximetry 95 12/24/23 11:05 Oxygen Delivery Method Room Air 12/24/23 11:05 Oxygen Flow Rate 0 12/24/23 11:05 Pain Level 5 12/24/23 08:08 Comment nurse notified. 12/23/23 11:09 Intake & Output 12/23/23 12/24/23 12/24/23 17:59 05:59 17:59 Intake Total 500 / 500 1100 / 1600 1600 / 1600 Output Total 300 / 300 Balance 200 / 200 1100 / 1300 1600 / 1600 Intake: IV 500 / 500 1100 / 1600 1600 / 1600 Output: Urine 300 / 300 Other: Urine Color Yellow Urine Appearance Clear Clear Urine Odor Normal Comment patient voided in brief and all over the floor, preston, and chair in his room. He got 300 ml in the urinal as well. patient has been up to the bathroom all night voiding in toilet patient voided in toilet. Voiding Methods Incontinent Toilet Data Completed and Pending Labs on day of discharge: Labs from last 24 hours 12/24/23 12/23/23 06:55 13:45 WBC 8.28 RBC 5.48 Hgb 17.3 Hct 49.3 MCV 90 MCH 31.6 MCHC 35.1 RDW 12.4 Plt Count 212 MPV 10.8 Sodium 141 Potassium 3.8 Chloride 107 Carbon Dioxide 26.4 Anion Gap 7.6 BUN 19 H Creatinine 0.9 Est GFR (CKD-EPI 2020) 94.78 Glucose 168 H Calcium 8.9 Vancomycin Trough 13.3 07/17/24 15:45 Toe - Right Big Toe Wound Culture - Pending 12/23/23 15:45 Foot - Left Anaerobic Culture - Pending Preliminary micro results at discharge 12/21/23 19:05 Blood Culture - Preliminary Blood NO GROWTH 48 HOURS 12/23/23 15:45 Wound Culture - Pending Toe - Right Big Toe 12/21/23 18:06 Blood Culture - Preliminary Blood NO GROWTH 48 HOURS 12/23/23 15:45 Anaerobic Culture - Pending Foot - Left PFSH All Active Problems (Updated 12/22/23 @ 16:17 by Breanne Will DPM) Blood blister (Acute) Blister (nonthermal), right foot, initial encounter (Acute) Fracture of proximal phalanx of right great toe (Acute) Severe sepsis (Acute) DAYNA (obstructive sleep apnea) (Chronic) Cellulitis (Acute) Fracture of right great toe (Acute) Charcot joint of ankle (Acute) Cellulitis in diabetic foot (Acute) Nail dystrophy (Acute) Onychomycosis (Acute) Atherosclerosis of artery of both lower extremities (Acute) Very low level of personal hygiene (Acute) Diabetes mellitus, type 2 (Chronic) Disorder of the skin and subcutaneous tissue, unspecified (Acute) Encephalopathy (Acute) Urge incontinence (Acute) Polycythemia (Chronic) Hypomagnesemia (Acute) Schizophrenia (Chronic) Weight gain (Acute 10/22/16) Screening for colorectal cancer (Acute) Heel ulcer (Acute) Medication monitoring encounter (Acute) Acute ischemic stroke (Acute) C1 cervical fracture (Acute) Chronic schizophrenia (Chronic) Ambulatory dysfunction (Acute) Alteration in thought content as evidenced by delusions (Acute) BRENNEN (acute kidney injury) (Acute) Medical History Dementia History of malignant neoplasm of skin Edema Blood in urine Steatosis of liver Constipation Community acquired pneumonia Venous stasis Nicotine dependence Bipolar disorder Schizoaffective disorder Pneumonia HTN (hypertension) (02/04/16) 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 (10/22/16) Facial basal cell cancer (02/04/16) OAB (overactive bladder) Diverticulosis Chronic constipation Hypothyroidism RLS (restless legs syndrome) Atrial enlargement, bilateral BCC (basal cell carcinoma of skin) Urinary incontinence Afib Vitreous floaters of right eye Non-ST elevation FL (NSTEMI) Pneumonia Obesity Surgical History Hx of cholecystectomy Tonsillectomy Hydrocelectomy Excision, Lipoma Colonoscopy - MAC (01/25/16) 2010 Family History Mother Alcohol abuse Father Heart disease FH: mental illness Brother Alcohol abuse Paternal Grandfather Heart disease Maternal Grandfather Diabetes Social History Smoking/Tobacco Use Status: Current every day Tobacco Type: cigarettes Smoking risk assessment performed?: Yes Alcohol Intake: current Alcohol Intake frequency: holidays/special occasions only Alcohol type: beer and hard liquor Drug use: Current Sobriety Substance use type: does not use Housing: apartment Current gender identity: male Do you feel safe at home: Yes Do you feel safe in your relationship?: Yes Time Spent with Patient Time Spent with Patient: <45 minutes Time was spent: preparing to see the patient(eg.review tests), obtaining and/or reviewing separately otained hiistory, ordering medications,tests, procedures, referring, communicating with other health intensive care ambulance paramedic, indepentently interpreting results, counseling the patient and care coordination
--- NOTE | 2023-12-24 15:24 | PDOC.CMDIS ---
Date of service: 12/24/23 Time of Service: 15:24 LACE Index Scoring Tool Questions: Length of Stay (in days): 3 Was the patient admitted via the E.D.?: Yes Comorbidities: Diabetes w/o Complication E.D. Visits: 1 Answers: Total Score: 8 Risk of Readmission: Low Risk Care Management Discharge Plan Reason for Hospitalization: cellulitis R foot, fracture of great right toe Discharge Plan: Judd was discharged to [facility] this afternoon for short term rehab prior to returning home. PAULO communicated this with Alexandra, his [employer] child welfare caseworker, and MORGAN Minor RN; they will continue to follow Judd in the community, as they are supporting him with transitioning to level 2 or 3 care post rehab. He transported via facility w/c van, coordinated by PAULO. He will follow up with community providers and his discharge plan of care. Patient/Family Education Needs: Review discharge instructions and limitations, discussion of self care needs including ask me three. Services Needed at Discharge: Intermediate Facility ([facility]) and Transportation (facility w/c van) SDOH Health Related Social Needs: Health related social needs inadequate housing, risk of homeless
== END 2023-12-24 13:39 | disposition skilled nursing facility (03) | DRG 872 ==
LOC: ER 23:14 → MS 12-22 00:05
PROVIDERS: Family Medicine; Admitting Provider Family Medicine; Emergency Provider Nurse Practitioner Family; PCP Family Medicine; Visit Provider Family Medicine
DX: A41.9 Sepsis, unspecified organism (principal); L03.115 Cellulitis of right lower limb; I48.19 Other persistent atrial fibrillation; E11.628 Type 2 diabetes mellitus with other skin complications; R65.20 Severe sepsis without septic shock; E11.65 Type 2 diabetes mellitus with hyperglycemia; D75.1 Secondary polycythemia; E03.9 Hypothyroidism, unspecified; G47.33 Obstructive sleep apnea (adult) (pediatric); I70.203 Unspecified atherosclerosis of native arteries of extremities, bilateral legs; E66.9 Obesity, unspecified; Z68.33 Body mass index [BMI] 33.0-33.9, adult; E11.610 Type 2 diabetes mellitus with diabetic neuropathic arthropathy; F20.9 Schizophrenia, unspecified; Z79.899 Other long term (current) drug therapy; Z79.01 Long term (current) use of anticoagulants; K76.0 Fatty (change of) liver, not elsewhere classified; F03.90 Unspecified dementia, unspecified severity, without behavioral disturbance, psychotic disturbance, mood disturbance, and anxiety; K59.00 Constipation, unspecified; F31.9 Bipolar disorder, unspecified; I10 Essential (primary) hypertension; Z86.73 Personal history of transient ischemic attack (TIA), and cerebral infarction without residual deficits; F17.210 Nicotine dependence, cigarettes, uncomplicated; H43.391 Other vitreous opacities, right eye; S92.414A Nondisplaced fracture of proximal phalanx of right great toe, initial encounter for closed fracture; S82.841D Displaced bimalleolar fracture of right lower leg, subsequent encounter for closed fracture with routine healing; X58.XXXD Exposure to other specified factors, subsequent encounter; X58.XXXA Exposure to other specified factors, initial encounter; E11.621 Type 2 diabetes mellitus with foot ulcer; L97.511 Non-pressure chronic ulcer of other part of right foot limited to breakdown of skin
CPT/HCPCS: 10160; 00123; 36415; 80048; 80053; 82805; 84145; 85027; 85652; 87040; 87641; 96361; 96365; 96366; 96367; 97162; 97530; 99222; 99285; 73630; 73701; 80202; 83605; 83735; 84443; 85025; 86140; 87070; 87075; 87205; 99223; 99233; 99238; J0692; J1815; J3370; J3372; J3490

== ENCOUNTER → 2024-01-05 13:35 | Outpatient (BNVA) | payer MEDICARE, MEDICAID, SELFPAY | PROVIDERS: PCP Family Medicine; Referring Provider Family Medicine; Visit Provider Podiatrist | DX: S92.411A Displaced fracture of proximal phalanx of right great toe, initial encounter for closed fracture (principal); I70.203 Unspecified atherosclerosis of native arteries of extremities, bilateral legs; B35.1 Tinea unguium; L60.3 Nail dystrophy; E11.8 Type 2 diabetes mellitus with unspecified complications; X58.XXXA Exposure to other specified factors, initial encounter | CPT/HCPCS: 93922 ==

== ENCOUNTER 2024-01-05 17:48 | Outpatient (REF) | payer MEDICARE, MEDICAID, SELFPAY ==
[2024-01-05 18:42] LABS: Abs Immature Grans 0.06 10^3/uL (0.0-0.06); Absolute Basophil Count 0.07 10^3/uL (0.0-0.2); Absolute Eosinophil Count 0.13 10^3/uL (0.0-0.7); Absolute Lymphocyte Count 2.27 10^3/uL (1.2-3.4); Absolute Monocyte Count 0.77 10^3/uL (0.1-0.8); Absolute Neutrophil Count 6.59 10^3/uL (1.2-6.7); Basophils % 0.7 %; Eosinophils % 1.3 %; HCT 55.7 % (40.0-50.0); HGB 18.9 g/dL (13.5-17.5); Immature Grans % 0.6 %; MCH 30.8 pg (27.0-33.0); MCHC 33.9 % (32.0-36.0); MCV 91 fL (80-95); MPV 11.9 fL (8.0-11.0); Monocytes % 7.8 %; Neutrophils % 66.6 %; Platelet Count 259 10^3/uL (130-400); RBC 6.13 10^6/uL (4.36-5.78); RDW 12.4 % (11.8-14.1); RDW-SD 40.5 fL; WBC 9.89 10^3/uL (4.4-10.8)
[2024-01-05 19:53] LABS: Diff Comment RBC Morph Reviewed; RBC Morphology Normal
== END 2024-01-05 17:49 | disposition home or self-care (01) ==
LOC: LBN 17:48
PROVIDERS: PCP Family Medicine; Visit Provider Family Medicine
DX: R68.89 Other general symptoms and signs (principal)
CPT/HCPCS: 85025

== ENCOUNTER → 2024-01-08 01:06 | Outpatient (CLI) | payer MEDICARE, MEDICAID, SELFPAY ==
--- NOTE | 2024-01-08 08:32 | DI.RAD_ITS ---
Exam(s) XR FOOT RT COMPLETE EXAM: XR FOOT RT COMPLETE CLINICAL HISTORY: fracture hallux, FRACTURE PROX PHALANX RT GREAT TOE, S92.411A. TECHNIQUE: 2D digital imaging was performed of the right foot. Three images were obtained. AP, obl ique and lateral views were obtained. COMPARISON: CR XR ANKLE RT COMPLETE from 06/23/[address] LOWER EXTREMITY RT W from 12/21/2023 CR XR FOOT LT COMPLETE from 12/21/2023 FINDINGS: BONES: There is again seen an intra-articular fracture of the lateral aspect of the head of the proxi mal phalanx of the great toe. There is mild impaction of the fracture noted. There is also a nondis placed fracture involving the base of the proximal phalanx of the 2nd toe. There is both a transvers e component and a longitudinal component which extends into the 2nd MTP joint. There is also mildly impacted fracture involving the articular surface of the head of the 1st metatarsal. There is an old distal fibular fracture deformity. There is a small enthesophyte at the posterior calcaneus. There is a hammertoe deformity of the 2nd toe. JOINTS: No dislocation present. SOFT TISSUE: Normal. IMPRESSION: Stable fractures involving the 1st and 2nd toes as described above. DATA REPOSITORY: RADIATION DOSE DELIVERED:
== END ==
PROVIDERS: PCP Family Medicine; Visit Provider Podiatrist
DX: S92.411A Displaced fracture of proximal phalanx of right great toe, initial encounter for closed fracture (principal); S92.514A Nondisplaced fracture of proximal phalanx of right lesser toe(s), initial encounter for closed fracture
CPT/HCPCS: 73630

== ENCOUNTER 2024-01-19 18:19 | Outpatient (REF) | payer MEDICARE, MEDICAID, SELFPAY ==
[2024-01-19 19:11] LABS: Absolute Basophil Count 0.04 10^3/uL (0.0-0.2); Absolute Eosinophil Count 0.12 10^3/uL (0.0-0.7); Absolute Lymphocyte Count 2.43 10^3/uL (1.2-3.4); Absolute Monocyte Count 0.59 10^3/uL (0.1-0.8); Absolute Neutrophil Count 5.41 10^3/uL (1.2-6.7); Basophils % 0.5 %; Eosinophils % 1.4 %; HCT 51.5 % (40.0-50.0); HGB 17.5 g/dL (13.5-17.5); Immature Grans % 1.2 %; MCH 30.6 pg (27.0-33.0); MCV 90 fL (80-95); MPV 11.6 fL (8.0-11.0); Monocytes % 6.8 %; Neutrophils % 62.1 %; Platelet Count 233 10^3/uL (130-400); RBC 5.72 10^6/uL (4.36-5.78); RDW 12.4 % (11.8-14.1); RDW-SD 40.8 fL; WBC 8.69 10^3/uL (4.4-10.8)
== END 2024-01-19 18:20 | disposition home or self-care (01) ==
LOC: LBN 18:19
PROVIDERS: PCP Family Medicine; Visit Provider Family Medicine
DX: I10 Essential (primary) hypertension (principal); F31.9 Bipolar disorder, unspecified
CPT/HCPCS: 85025

== ENCOUNTER → 2024-01-28 09:26 | Outpatient (BNVA) | payer MEDICARE, MEDICAID, SELFPAY | PROVIDERS: PCP Family Medicine; Referring Provider Family Medicine; Visit Provider Podiatrist | DX: S92.411A Displaced fracture of proximal phalanx of right great toe, initial encounter for closed fracture (principal); E11.8 Type 2 diabetes mellitus with unspecified complications; I70.293 Other atherosclerosis of native arteries of extremities, bilateral legs; B35.1 Tinea unguium; L60.3 Nail dystrophy; X58.XXXA Exposure to other specified factors, initial encounter | CPT/HCPCS: 99213 ==

== ENCOUNTER 2024-02-01 02:10 | Outpatient (CLI) | payer MEDICARE, MEDICAID, SELFPAY ==
--- NOTE | 2024-02-01 06:52 | DI.RAD_ITS ---
Exam(s) XR TOE RT GREAT EXAM: XR TOE RT GREAT CLINICAL HISTORY: ? consolidation, fx proximal phalanx rt great toe,s92.411a. TECHNIQUE: 2D digital imaging was performed. COMPARISON: CR XR FOOT RT COMPLETE from 01/08/2024 FINDINGS: Previously described comminuted intra RT fracture site in the distal aspect of the proximal phalanx o f the great toe is again noted. Fracture lines are still evident but without further displacement. In addition, the fracture at the proximal aspect of the proximal phalanx of the 2nd toe is also again noted, with fracture line still visible. There is again noted some flattening of the adjacent 2nd m etatarsal head, unchanged. No additional fractures identified. No radiopaque foreign bodies. IMPRESSION: Relatively stable appearance of the fracture sites described above in the 1st and 2nd toes. DATA REPOSITORY: RADIATION DOSE DELIVERED:
== END 2024-02-01 02:30 ==
LOC: DI 02:10
PROVIDERS: PCP Family Medicine; Visit Provider Podiatrist
DX: S92.411D Displaced fracture of proximal phalanx of right great toe, subsequent encounter for fracture with routine healing (principal); X58.XXXD Exposure to other specified factors, subsequent encounter
CPT/HCPCS: 73660

== ENCOUNTER 2024-02-16 19:39 | Outpatient (REF) | payer MEDICARE, MEDICAID, SELFPAY ==
[2024-02-16 16:57] LABS: Abs Immature Grans 0.04 10^3/uL (0.0-0.06); Absolute Basophil Count 0.06 10^3/uL (0.0-0.2); Absolute Eosinophil Count 0.24 10^3/uL (0.0-0.7); Absolute Lymphocyte Count 2.91 10^3/uL (1.2-3.4); Absolute Monocyte Count 0.66 10^3/uL (0.1-0.8); Absolute Neutrophil Count 5.32 10^3/uL (1.2-6.7); Basophils % 0.7 %; Eosinophils % 2.6 %; HCT 50.8 % (40.0-50.0); HGB 17.5 g/dL (13.5-17.5); Immature Grans % 0.4 %; Lymphocytes % 31.5 %; MCH 30.8 pg (27.0-33.0); MCHC 34.4 % (32.0-36.0); MCV 89 fL (80-95); MPV 11.9 fL (8.0-11.0); Monocytes % 7.2 %; Neutrophils % 57.6 %; Platelet Count 244 10^3/uL (130-400); RBC 5.68 10^6/uL (4.36-5.78); RDW 13.1 % (11.8-14.1); RDW-SD 42.9 fL; WBC 9.23 10^3/uL (4.4-10.8)
== END 2024-02-16 19:40 | disposition home or self-care (01) ==
LOC: LBN 19:39
PROVIDERS: PCP Family Medicine; Visit Provider Family Medicine
DX: R68.89 Other general symptoms and signs (principal)
CPT/HCPCS: 85025

== ENCOUNTER 2024-02-22 14:06 | Outpatient (CLI) | payer MEDICARE, MEDICAID, SELFPAY ==
--- NOTE | 2024-02-22 14:00 | DI.RAD_ITS ---
Exam(s) XR TOE RT GREAT EXAM: XR TOE RT GREAT CLINICAL HISTORY: consolidation? S92.414A FX RT GREAT TOE. TECHNIQUE: 2D digital imaging was performed. COMPARISON: CR XR TOE RT GREAT from 02/01/2024 FINDINGS: BONES: No change in alignment of intra-articular fractures at the distal 1st proximal phalanx and ba se 2nd proximal phalanx. Increased healing when compared to prior. No bony destructive lesion is se en. JOINTS: No dislocation present. SOFT TISSUE: Normal. IMPRESSION: Further increase in healing of 1st and 2nd toe fractures. DATA REPOSITORY: RADIATION DOSE DELIVERED:
== END 2024-02-22 14:26 ==
LOC: DI 14:06
PROVIDERS: PCP Family Medicine; Visit Provider Podiatrist
DX: S92.414A Nondisplaced fracture of proximal phalanx of right great toe, initial encounter for closed fracture (principal); X58.XXXA Exposure to other specified factors, initial encounter
CPT/HCPCS: 73660

== ENCOUNTER 2024-03-15 16:42 | Outpatient (REF) | payer MEDICARE, MEDICAID, SELFPAY ==
[2024-03-15 16:54] LABS: Abs Immature Grans 0.05 10^3/uL (0.0-0.06); Absolute Basophil Count 0.06 10^3/uL (0.0-0.2); Absolute Eosinophil Count 0.28 10^3/uL (0.0-0.7); Absolute Lymphocyte Count 2.95 10^3/uL (1.2-3.4); Absolute Monocyte Count 0.62 10^3/uL (0.1-0.8); Absolute Neutrophil Count 6.11 10^3/uL (1.2-6.7); Basophils % 0.6 %; Eosinophils % 2.8 %; HCT 52.1 % (40.0-50.0); HGB 17.5 g/dL (13.5-17.5); Immature Grans % 0.5 %; Lymphocytes % 29.3 %; MCH 30.8 pg (27.0-33.0); MCHC 33.6 % (32.0-36.0); MCV 92 fL (80-95); MPV 11.9 fL (8.0-11.0); Monocytes % 6.2 %; Neutrophils % 60.6 %; Platelet Count 241 10^3/uL (130-400); RBC 5.68 10^6/uL (4.36-5.78); RDW 12.8 % (11.8-14.1); RDW-SD 43.2 fL; WBC 10.07 10^3/uL (4.4-10.8)
[2024-03-15 18:17] LABS: Anion Gap 15.5 mmol/L (3-11); BUN 16 mg/dL (7-18); CO2 24.5 mmol/L (21.0-32.0); CREATININE 0.9 mg/dL (0.70-1.30); Calcium 9.3 mg/dL (8.5-10.1); Chloride 107 mmol/L (98-107); Estimated GFR 94.78 (mL/min/1.73m2); Glucose 110 mg/dL (74-106); Magnesium 1.6 mg/dL (1.8-2.4); Potassium 3.6 mmol/L (3.5-5.1); Sodium 147 mmol/L (136-145); Vitamin D 25 Total 50.4 ng/mL (30-100)
== END 2024-03-15 16:43 | disposition home or self-care (01) ==
LOC: LBN 16:42
PROVIDERS: PCP Family Medicine; Visit Provider Family Medicine
DX: R68.89 Other general symptoms and signs (principal); E11.8 Type 2 diabetes mellitus with unspecified complications
CPT/HCPCS: 80048; 82306; 83735; 84443; 85025

== ENCOUNTER 2024-03-30 01:45 | Outpatient (CLI) | payer MEDICARE, MEDICAID, SELFPAY ==
--- NOTE | 2024-03-30 07:30 | DI.RAD_ITS ---
Exam(s) XR FOOT RT COMPLETE EXAM: XR FOOT RT COMPLETE CLINICAL HISTORY: ? healing, fx rt great toe,s92.414a. TECHNIQUE: 2D digital imaging was performed of the right foot. Three images were obtained. AP, obl ique and lateral views were obtained. COMPARISON: CR XR FOOT RT COMPLETE from 01/08/2024 CR XR TOE RT GREAT from 02/01/2024 CR XR TOE RT GREAT from 02/22/2024 FINDINGS: BONES: The fracture involving the head of the proximal phalanx of the great toe is again seen. The f racture line is still well visualized. There continues to be healing involving the base of the proxi mal phalanx of the 2nd toe. There is a new lucency seen through the diaphysis of the proximal phalan x of the 5th toe. No bony destructive lesion is seen. JOINTS: No dislocation present. SOFT TISSUE: Normal. IMPRESSION: 1. No change in alignment of the fracture involving the head of the proximal phalanx of the great toe . 2. The fracture through the base of the proximal phalanx of the 2nd toe continues to show evidence of healing. 3. Since the prior examination there is a nondisplaced fracture involving the proximal phalanx of the 5th toe. DATA REPOSITORY: RADIATION DOSE DELIVERED:
== END 2024-03-30 02:05 ==
LOC: DI 01:45
PROVIDERS: PCP Family Medicine; Visit Provider Podiatrist
DX: S92.414D Nondisplaced fracture of proximal phalanx of right great toe, subsequent encounter for fracture with routine healing (principal); X58.XXXD Exposure to other specified factors, subsequent encounter
CPT/HCPCS: 73630

== ENCOUNTER 2024-04-13 01:36 | Outpatient (CLI) | payer MEDICARE, MEDICAID, SELFPAY ==
--- NOTE | 2024-04-13 07:15 | DI.RAD_ITS ---
Exam(s) XR FOOT RT COMPLETE EXAM: XR FOOT RT COMPLETE CLINICAL HISTORY: ? Consolidation,FX RT GREAT TOE,FX RT 5TH TOE,S92.411A,S92.501A. TECHNIQUE: 2D digital imaging was performed of the right foot. Three images were obtained. AP, obl ique and lateral views were obtained. COMPARISON: CR XR FOOT RT COMPLETE from 03/30/2024 FINDINGS: BONES: There has been no change in alignment of the displaced fracture involving the lateral aspect o f the head of the proximal phalanx of the great toe. The fracture line is still visualized. There h as been no change in alignment of the healing fracture involving the base of the proximal phalanx of the 2nd toe. There is also been no significant change in alignment of the fracture involving the pro ximal phalanx of the 5th toe. No bony destructive lesion is seen. JOINTS: No dislocation present. SOFT TISSUE: Normal. IMPRESSION: Stable alignment of the right foot fractures as described above. DATA REPOSITORY: RADIATION DOSE DELIVERED:
== END 2024-04-13 01:56 ==
LOC: DI 01:36
PROVIDERS: PCP Family Medicine; Visit Provider Podiatrist
DX: S92.411D Displaced fracture of proximal phalanx of right great toe, subsequent encounter for fracture with routine healing (principal); X58.XXXD Exposure to other specified factors, subsequent encounter; E11.8 Type 2 diabetes mellitus with unspecified complications; I70.203 Unspecified atherosclerosis of native arteries of extremities, bilateral legs; L60.3 Nail dystrophy; B35.1 Tinea unguium; S92.501D Displaced unspecified fracture of right lesser toe(s), subsequent encounter for fracture with routine healing; M20.42 Other hammer toe(s) (acquired), left foot; M79.674 Pain in right toe(s); M79.675 Pain in left toe(s)
CPT/HCPCS: 11721; 73630

== ENCOUNTER 2024-04-14 11:16 | Outpatient (REF) | payer MEDICARE, MEDICAID, SELFPAY ==
[2024-04-14 10:51] LABS: Abs Immature Grans 0.03 10^3/uL (0.0-0.06); Absolute Basophil Count 0.05 10^3/uL (0.0-0.2); Absolute Eosinophil Count 0.25 10^3/uL (0.0-0.7); Absolute Lymphocyte Count 2.26 10^3/uL (1.2-3.4); Absolute Monocyte Count 0.56 10^3/uL (0.1-0.8); Absolute Neutrophil Count 5.07 10^3/uL (1.2-6.7); Basophils % 0.6 %; HCT 51.8 % (40.0-50.0); HGB 17.4 g/dL (13.5-17.5); Immature Grans % 0.4 %; Lymphocytes % 27.5 %; MCHC 33.6 % (32.0-36.0); MCV 92 fL (80-95); MPV 11.1 fL (8.0-11.0); Monocytes % 6.8 %; Neutrophils % 61.7 %; Platelet Count 228 10^3/uL (130-400); RBC 5.62 10^6/uL (4.36-5.78); RDW 12.9 % (11.8-14.1); RDW-SD 43.7 fL; WBC 8.22 10^3/uL (4.4-10.8)
[2024-04-14 11:43] LABS: Vitamin D 25 Total 46.6 ng/mL (30-100)
== END 2024-04-14 11:17 | disposition home or self-care (01) ==
LOC: LBN 11:16
PROVIDERS: PCP Family Medicine; Visit Provider Family Medicine
DX: R68.89 Other general symptoms and signs (principal)
CPT/HCPCS: 82306; 85025

== ENCOUNTER 2024-05-13 22:10 | Outpatient (REF) | payer MEDICARE, MEDICAID, SELFPAY ==
[2024-05-13 19:51] LABS: Abs Immature Grans 0.08 10^3/uL (0.0-0.06); Absolute Basophil Count 0.06 10^3/uL (0.0-0.2); Absolute Lymphocyte Count 2.32 10^3/uL (1.2-3.4); Absolute Monocyte Count 0.91 10^3/uL (0.1-0.8); Absolute Neutrophil Count 6.57 10^3/uL (1.2-6.7); Basophils % 0.6 %; Eosinophils % 2.9 %; HCT 51.1 % (40.0-50.0); Immature Grans % 0.8 %; Lymphocytes % 22.7 %; MCH 30.8 pg (27.0-33.0); MCHC 33.3 % (32.0-36.0); MCV 93 fL (80-95); MPV 11.5 fL (8.0-11.0); Monocytes % 8.9 %; Neutrophils % 64.1 %; Platelet Count 264 10^3/uL (130-400); RBC 5.52 10^6/uL (4.36-5.78); RDW 12.7 % (11.8-14.1); RDW-SD 43.1 fL; WBC 10.24 10^3/uL (4.4-10.8)
== END 2024-05-13 22:11 | disposition home or self-care (01) ==
LOC: LBN 22:10
PROVIDERS: PCP Family Medicine; Visit Provider Family Medicine
DX: E11.8 Type 2 diabetes mellitus with unspecified complications (principal)
CPT/HCPCS: 85025

== ENCOUNTER 2024-05-23 18:49 | Outpatient (REF) | payer MEDICARE, MEDICAID, SELFPAY ==
[2024-05-23 17:37] LABS: Abs Immature Grans 0.05 10^3/uL (0.0-0.06); Absolute Basophil Count 0.06 10^3/uL (0.0-0.2); Absolute Eosinophil Count 0.25 10^3/uL (0.0-0.7); Absolute Lymphocyte Count 2.63 10^3/uL (1.2-3.4); Absolute Monocyte Count 0.65 10^3/uL (0.1-0.8); Absolute Neutrophil Count 6.03 10^3/uL (1.2-6.7); Basophils % 0.6 %; Eosinophils % 2.6 %; HCT 54.1 % (40.0-50.0); HGB 18.4 g/dL (13.5-17.5); Immature Grans % 0.5 %; Lymphocytes % 27.2 %; MCV 91 fL (80-95); MPV 11.7 fL (8.0-11.0); Monocytes % 6.7 %; Neutrophils % 62.4 %; Platelet Count 265 10^3/uL (130-400); RBC 5.94 10^6/uL (4.36-5.78); RDW 12.5 % (11.8-14.1); RDW-SD 41.1 fL; WBC 9.67 10^3/uL (4.4-10.8)
== END 2024-05-23 18:50 | disposition home or self-care (01) ==
LOC: LBN 18:49
PROVIDERS: PCP Family Medicine; Visit Provider Family Medicine
DX: I48.20 Chronic atrial fibrillation, unspecified (principal)
CPT/HCPCS: 82306; 85025

== ENCOUNTER 2024-06-09 15:41 | Outpatient (REF) | payer MEDICARE, MEDICAID, SELFPAY ==
[2024-06-09 15:44] LABS: Abs Immature Grans 0.05 10^3/uL (0.0-0.06); Absolute Basophil Count 0.06 10^3/uL (0.0-0.2); Absolute Eosinophil Count 0.26 10^3/uL (0.0-0.7); Absolute Lymphocyte Count 3.03 10^3/uL (1.2-3.4); Absolute Monocyte Count 0.74 10^3/uL (0.1-0.8); Absolute Neutrophil Count 5.68 10^3/uL (1.2-6.7); Basophils % 0.6 %; Eosinophils % 2.6 %; HCT 56.2 % (40.0-50.0); HGB 18.9 g/dL (13.5-17.5); Immature Grans % 0.5 %; Lymphocytes % 30.9 %; MCH 31.1 pg (27.0-33.0); MCHC 33.6 % (32.0-36.0); MCV 92 fL (80-95); MPV 11.9 fL (8.0-11.0); Monocytes % 7.5 %; Neutrophils % 57.9 %; Platelet Count 261 10^3/uL (130-400); RBC 6.08 10^6/uL (4.36-5.78); RDW 12.8 % (11.8-14.1); RDW-SD 43.6 fL; WBC 9.82 10^3/uL (4.4-10.8)
[2024-06-09 15:57] LABS: Diff Comment RBC Morph Reviewed; RBC Morphology Normal
== END 2024-06-09 15:42 | disposition home or self-care (01) ==
LOC: LBN 15:41
PROVIDERS: PCP Family Medicine; Visit Provider Family Medicine Geriatric Medicine
DX: I48.20 Chronic atrial fibrillation, unspecified (principal)
CPT/HCPCS: 85025

== ENCOUNTER 2024-07-22 14:39 | Outpatient (REF) | payer MEDICARE, MEDICAID, SELFPAY ==
[2024-07-22 14:53] LABS: HCT 47.8 % (40.0-50.0); HGB 16.1 g/dL (13.5-17.5); MCH 30.6 pg (27.0-33.0); MCHC 33.7 % (32.0-36.0); MCV 91 fL (80-95); MPV 10.7 fL (8.0-11.0); Platelet Count 337 10^3/uL (130-400); RBC 5.26 10^6/uL (4.36-5.78); RDW 12.9 % (11.8-14.1); RDW-SD 42.9 fL; WBC 10.76 10^3/uL (4.4-10.8)
[2024-07-22 15:30] LABS: Absolute Eosinophil Count 0.11 10^3/uL (0.0-0.7); Absolute Lymphocyte Count 3.55 10^3/uL (1.2-3.4); Absolute Monocyte Count 0.65 10^3/uL (0.1-0.8); Absolute Neutrophil Count 6.46 10^3/uL (1.2-6.7); Atypical Lymphocytes % 3 %; Bands % 1 %
[2024-07-22 15:31] LABS: Diff Comment Manual Differential; RBC Morphology Normal
== END 2024-07-22 14:40 | disposition home or self-care (01) ==
LOC: LBN 14:39
PROVIDERS: PCP Family Medicine; Visit Provider Family Medicine Geriatric Medicine
DX: F31.9 Bipolar disorder, unspecified (principal)
CPT/HCPCS: 85025

== ENCOUNTER 2024-08-06 08:36 | Outpatient (REF) | payer MEDICARE, MEDICAID, SELFPAY ==
[2024-08-06 08:40] LABS: Abs Immature Grans 0.06 10^3/uL (0.0-0.06); Absolute Basophil Count 0.04 10^3/uL (0.0-0.2); Absolute Eosinophil Count 0.15 10^3/uL (0.0-0.7); Absolute Lymphocyte Count 2.38 10^3/uL (1.2-3.4); Basophils % 0.4 %; Eosinophils % 1.5 %; HCT 52.8 % (40.0-50.0); HGB 17.2 g/dL (13.5-17.5); Immature Grans % 0.6 %; Lymphocytes % 23.7 %; MCH 30.4 pg (27.0-33.0); MCHC 32.6 % (32.0-36.0); MCV 93 fL (80-95); MPV 10.7 fL (8.0-11.0); Neutrophils % 67.8 %; Platelet Count 287 10^3/uL (130-400); RBC 5.66 10^6/uL (4.36-5.78); RDW 13.2 % (11.8-14.1); WBC 10.03 10^3/uL (4.4-10.8)
== END 2024-08-06 08:37 | disposition home or self-care (01) ==
LOC: LBN 08:36
PROVIDERS: PCP Family Medicine; Visit Provider Family Medicine Geriatric Medicine
DX: F20.9 Schizophrenia, unspecified (principal); K57.91 Diverticulosis of intestine, part unspecified, without perforation or abscess with bleeding
CPT/HCPCS: 85025

== ENCOUNTER 2024-08-26 13:40 | Outpatient (REF) | payer MEDICARE, MEDICAID, SELFPAY ==
[2024-08-26 14:11] LABS: Hemoglobin A1C 6.5 % (<5.7)
[2024-08-26 14:28] LABS: ALT 25 U/L (16-63); AST 20 U/L (15-37); Albumin 3.7 g/dL (3.4-5.0); Alkaline Phosphatase 132 U/L (46-116); Anion Gap 11.7 mmol/L (3-11); BUN 13 mg/dL (7-18); Bilirubin, Total 0.4 mg/dL (0.2-1.0); CO2 27.3 mmol/L (21.0-32.0); CREATININE 0.9 mg/dL (0.70-1.30); Calcium 9.5 mg/dL (8.5-10.1); Chloride 106 mmol/L (98-107); Estimated GFR 94.78 (mL/min/1.73m2); Glucose 120 mg/dL (74-106); Magnesium 1.9 mg/dL; Potassium 3.9 mmol/L (3.5-5.1); Sodium 145 mmol/L (136-145); TSH 1.45 uIU/mL (0.36-3.74); Total Protein 7.1 g/dL (6.4-8.2); Vitamin B12 417 pg/mL (193-986); Vitamin D 25 Total 38 ng/mL (30-100)
== END 2024-08-26 13:41 | disposition home or self-care (01) ==
LOC: LBN 13:40
PROVIDERS: PCP Family Medicine Geriatric Medicine; Visit Provider Family Medicine Geriatric Medicine
DX: E11.8 Type 2 diabetes mellitus with unspecified complications (principal); I48.20 Chronic atrial fibrillation, unspecified
CPT/HCPCS: 80053; 82306; 82607; 83036; 83735; 84443

== ENCOUNTER 2024-09-08 11:41 | Outpatient (REF) | payer MEDICARE, MEDICAID, SELFPAY ==
[2024-09-08 13:26] LABS: Abs Immature Grans 0.04 10^3/uL (0.0-0.06); Absolute Basophil Count 0.05 10^3/uL (0.0-0.2); Absolute Lymphocyte Count 3.13 10^3/uL (1.2-3.4); Absolute Monocyte Count 0.72 10^3/uL (0.1-0.8); Basophils % 0.5 %; Eosinophils % 1.7 %; HCT 51.7 % (40.0-50.0); HGB 17.3 g/dL (13.5-17.5); Immature Grans % 0.4 %; Lymphocytes % 28.7 %; MCH 30.5 pg (27.0-33.0); MCHC 33.5 % (32.0-36.0); MCV 91 fL (80-95); MPV 11.7 fL (8.0-11.0); Monocytes % 6.6 %; Neutrophils % 62.1 %; Platelet Count 263 10^3/uL (130-400); RBC 5.67 10^6/uL (4.36-5.78); RDW 12.9 % (11.8-14.1)
[2024-09-08 13:28] LABS: Absolute Eosinophil Count 0.19 10^3/uL (0.0-0.7); Absolute Neutrophil Count 6.77 10^3/uL (1.2-6.7)
== END 2024-09-08 11:42 | disposition home or self-care (01) ==
LOC: LBN 11:41
PROVIDERS: PCP Family Medicine Geriatric Medicine; Visit Provider Family Medicine Geriatric Medicine
DX: F31.9 Bipolar disorder, unspecified (principal)
CPT/HCPCS: 85025

== ENCOUNTER → 2024-09-26 09:12 | Outpatient (BNVA) | payer MEDICARE, MEDICAID, SELFPAY | PROVIDERS: PCP Family Medicine Geriatric Medicine; Referring Provider Family Medicine Geriatric Medicine; Visit Provider Podiatrist | DX: E11.8 Type 2 diabetes mellitus with unspecified complications (principal); I70.203 Unspecified atherosclerosis of native arteries of extremities, bilateral legs; L60.3 Nail dystrophy; B35.1 Tinea unguium; S92.414D Nondisplaced fracture of proximal phalanx of right great toe, subsequent encounter for fracture with routine healing; X58.XXXD Exposure to other specified factors, subsequent encounter; L60.2 Onychogryphosis; M79.674 Pain in right toe(s); M79.675 Pain in left toe(s); R09.89 Other specified symptoms and signs involving the circulatory and respiratory systems; R60.0 Localized edema; L65.9 Nonscarring hair loss, unspecified; M20.41 Other hammer toe(s) (acquired), right foot; M20.42 Other hammer toe(s) (acquired), left foot; R23.8 Other skin changes | CPT/HCPCS: 11721 ==

== ENCOUNTER 2024-10-03 10:47 | Outpatient (CLI) | payer MEDICARE, MEDICAID, SELFPAY ==
--- NOTE | 2024-10-03 09:15 | DI.RAD_ITS ---
Exam(s) XR TOE RT GREAT EXAM: XR TOE RT GREAT CLINICAL HISTORY: consolidation? fracture of great r toe. TECHNIQUE: 2D digital imaging was performed. Three images were obtained. COMPARISON: CR XR FOOT RT COMPLETE from 04/13/2024 FINDINGS: BONES: No acute fracture is present. There is a healed fracture deformity involving the head of the proximal phalanx of the great toe. No bony destructive lesion is seen. JOINTS: No dislocation present. SOFT TISSUE: Normal. IMPRESSION: Healed fracture involving the lateral aspect of the head of the proximal phalanx of the great toe. DATA REPOSITORY: RADIATION DOSE DELIVERED:
== END 2024-10-03 11:07 ==
LOC: DI 10:48
PROVIDERS: PCP Family Medicine Geriatric Medicine; Visit Provider Podiatrist
DX: S92.414A Nondisplaced fracture of proximal phalanx of right great toe, initial encounter for closed fracture (principal)
CPT/HCPCS: 73660

== ENCOUNTER 2024-10-07 13:34 | Outpatient (REF) | payer MEDICARE, MEDICAID, SELFPAY ==
[2024-10-07 15:58] LABS: Abs Immature Grans 0.05 10^3/uL (0.0-0.06); Absolute Basophil Count 0.06 10^3/uL (0.0-0.2); Absolute Eosinophil Count 0.26 10^3/uL (0.0-0.7); Absolute Lymphocyte Count 2.63 10^3/uL (1.2-3.4); Absolute Monocyte Count 0.75 10^3/uL (0.1-0.8); Basophils % 0.5 %; Eosinophils % 2.3 %; HCT 52.3 % (40.0-50.0); HGB 17.3 g/dL (13.5-17.5); Immature Grans % 0.4 %; Lymphocytes % 23.4 %; MCH 30.9 pg (27.0-33.0); MCHC 33.1 % (32.0-36.0); MCV 93 fL (80-95); MPV 11.8 fL (8.0-11.0); Monocytes % 6.7 %; Neutrophils % 66.7 %; Platelet Count 257 10^3/uL (130-400); RDW 12.7 % (11.8-14.1); WBC 11.23 10^3/uL (4.4-10.8)
[2024-10-07 15:59] LABS: Absolute Neutrophil Count 7.49 10^3/uL (1.2-6.7)
== END 2024-10-07 13:35 | disposition home or self-care (01) ==
LOC: LBN 13:34
PROVIDERS: PCP Family Medicine Geriatric Medicine; Visit Provider Nurse Practitioner Gerontology
DX: Z79.899 Other long term (current) drug therapy (principal)
CPT/HCPCS: 85025

== ENCOUNTER 2024-10-28 17:10 | Outpatient (REF) | payer MEDICARE, MEDICAID, SELFPAY ==
[2024-10-28 14:41] LABS: Abs Immature Grans 0.04 10^3/uL (0.0-0.06); Absolute Basophil Count 0.06 10^3/uL (0.0-0.2); Absolute Eosinophil Count 0.28 10^3/uL (0.0-0.7); Absolute Lymphocyte Count 2.35 10^3/uL (1.2-3.4); Absolute Monocyte Count 0.52 10^3/uL (0.1-0.8); Absolute Neutrophil Count 5.82 10^3/uL (1.2-6.7); Basophils % 0.7 %; Eosinophils % 3.1 %; HCT 53.1 % (40.0-50.0); HGB 17.1 g/dL (13.5-17.5); Immature Grans % 0.4 %; Lymphocytes % 25.9 %; MCH 29.8 pg (27.0-33.0); MCHC 32.2 % (32.0-36.0); MCV 93 fL (80-95); MPV 11.7 fL (8.0-11.0); Monocytes % 5.7 %; Neutrophils % 64.2 %; Platelet Count 252 10^3/uL (130-400); RBC 5.73 10^6/uL (4.36-5.78); RDW 13.1 % (11.8-14.1); RDW-SD 44.7 fL; WBC 9.07 10^3/uL (4.4-10.8)
[2024-10-28 15:04] LABS: Hemoglobin A1C 6.3 % (<5.7)
[2024-10-28 15:29] LABS: ALT 13 U/L (16-63); AST 15 U/L (15-37); Albumin 3.6 g/dL (3.4-5.0); Alkaline Phosphatase 114 U/L (46-116); Anion Gap 13.2 mmol/L (3-11); BUN 19 mg/dL (7-18); Bilirubin, Total 0.4 mg/dL (0.2-1.0); CO2 25.8 mmol/L (21.0-32.0); CREATININE 0.8 mg/dL (0.70-1.30); Calcium 9.7 mg/dL (8.5-10.1); Calculated LDL 50 mg/dL (<100); Chloride 106 mmol/L (98-107); Cholesterol 110 mg/dL (<200); Estimated GFR 98.21 (mL/min/1.73m2); Glucose 193 mg/dL (74-106); HDL Cholesterol 38 mg/dL (>or=40); Sodium 145 mmol/L (136-145); TSH 1.67 uIU/mL (0.36-3.74); Total Protein 6.8 g/dL (6.4-8.2); Triglyceride 110 mg/dL (<150); Vitamin D 25 Total 29 ng/mL (30-100)
== END 2024-10-28 17:11 | disposition home or self-care (01) ==
LOC: LBN 17:10
PROVIDERS: PCP Family Medicine Geriatric Medicine; Visit Provider Family Medicine
DX: E11.8 Type 2 diabetes mellitus with unspecified complications (principal); E55.9 Vitamin D deficiency, unspecified
CPT/HCPCS: 80053; 80061; 82306; 83036; 84443; 85025

== ENCOUNTER 2024-11-10 12:48 | Outpatient (REF) | payer MEDICARE, MEDICAID, SELFPAY ==
[2024-11-10 13:16] LABS: Abs Immature Grans 0.05 10^3/uL (0.0-0.06); Absolute Basophil Count 0.06 10^3/uL (0.0-0.2); Absolute Eosinophil Count 0.32 10^3/uL (0.0-0.7); Absolute Lymphocyte Count 2.52 10^3/uL (1.2-3.4); Absolute Monocyte Count 0.67 10^3/uL (0.1-0.8); Absolute Neutrophil Count 6.22 10^3/uL (1.2-6.7); Basophils % 0.6 %; Eosinophils % 3.3 %; HCT 52.1 % (40.0-50.0); HGB 17.1 g/dL (13.5-17.5); Immature Grans % 0.5 %; Lymphocytes % 25.6 %; MCH 30.3 pg (27.0-33.0); MCHC 32.8 % (32.0-36.0); MCV 92 fL (80-95); MPV 11.6 fL (8.0-11.0); Monocytes % 6.8 %; Neutrophils % 63.2 %; Platelet Count 271 10^3/uL (130-400); RBC 5.65 10^6/uL (4.36-5.78); RDW 13.2 % (11.8-14.1); RDW-SD 44.3 fL; WBC 9.84 10^3/uL (4.4-10.8)
== END 2024-11-10 12:49 | disposition home or self-care (01) ==
LOC: LBN 12:48
PROVIDERS: PCP Family Medicine Geriatric Medicine; Visit Provider Family Medicine
DX: F31.9 Bipolar disorder, unspecified (principal)
CPT/HCPCS: 85025

== ENCOUNTER 2025-01-06 19:35 | Outpatient (REF) | payer MEDICARE, MEDICAID, SELFPAY ==
[2025-01-06 13:04] LABS: Abs Immature Grans 0.12 10^3/uL (0.0-0.06); HCT 51.5 % (40.0-50.0); HGB 17.2 g/dL (13.5-17.5); Immature Grans % 0.8 %; MCH 30.4 pg (27.0-33.0); MCHC 33.4 % (32.0-36.0); MCV 91 fL (80-95); MPV 11.1 fL (8.0-11.0); Platelet Count 313 10^3/uL (130-400); RBC 5.65 10^6/uL (4.36-5.78); RDW 12.5 % (11.8-14.1); RDW-SD 41.9 fL; WBC 14.13 10^3/uL (4.4-10.8)
[2025-01-06 19:26] LABS: Glucose >=1000 mg/dL (Negative)
[2025-01-06 19:41] LABS: RBC 0-2 HPF (0-2); WBC Negative HPF (0-5)
== END 2025-01-06 19:36 | disposition home or self-care (01) ==
LOC: LBN 19:35
PROVIDERS: Nurse Practitioner Family; PCP Family Medicine Geriatric Medicine; Visit Provider Nurse Practitioner Adult Health
DX: F31.9 Bipolar disorder, unspecified (principal); N39.0 Urinary tract infection, site not specified
CPT/HCPCS: 81003; 81015; 85025; 87086

== ENCOUNTER 2025-01-09 16:08 | Outpatient (REF) | payer MEDICARE, MEDICAID, SELFPAY ==
[2025-01-09 12:19] LABS: Abs Immature Grans 0.05 10^3/uL (0.0-0.06); HCT 47.1 % (40.0-50.0); HGB 15.5 g/dL (13.5-17.5); Immature Grans % 0.5 %; MCH 30.1 pg (27.0-33.0); MCHC 32.9 % (32.0-36.0); MCV 92 fL (80-95); MPV 11.4 fL (8.0-11.0); Platelet Count 261 10^3/uL (130-400); RBC 5.15 10^6/uL (4.36-5.78); RDW 12.6 % (11.8-14.1); RDW-SD 42.1 fL; WBC 9.87 10^3/uL (4.4-10.8)
== END 2025-01-09 16:09 | disposition home or self-care (01) ==
LOC: LBN 16:08
PROVIDERS: PCP Family Medicine Geriatric Medicine; Visit Provider Nurse Practitioner Adult Health
DX: F20.9 Schizophrenia, unspecified (principal)
CPT/HCPCS: 85025

== ENCOUNTER 2025-01-31 15:22 | Outpatient (REF) | payer MEDICARE, MEDICAID, SELFPAY ==
[2025-01-31 15:44] LABS: Abs Immature Grans 0.03 10^3/uL (0.0-0.06); HCT 49.8 % (40.0-50.0); HGB 16.4 g/dL (13.5-17.5); Immature Grans % 0.3 %; MCH 30.2 pg (27.0-33.0); MCHC 32.9 % (32.0-36.0); MCV 92 fL (80-95); MPV 11.6 fL (8.0-11.0); Platelet Count 263 10^3/uL (130-400); RBC 5.43 10^6/uL (4.36-5.78); RDW 13.2 % (11.8-14.1); RDW-SD 44.7 fL; WBC 9.83 10^3/uL (4.4-10.8)
== END 2025-01-31 15:23 | disposition home or self-care (01) ==
LOC: LBN 15:22
PROVIDERS: PCP Family Medicine Geriatric Medicine; Visit Provider Family Medicine
DX: D25.0 Submucous leiomyoma of uterus (principal); F25.0 Schizoaffective disorder, bipolar type
CPT/HCPCS: 85025

== ENCOUNTER 2025-03-06 16:17 | Outpatient (REF) | payer MEDICARE, MEDICAID, SELFPAY ==
[2025-03-06 15:36] LABS: Abs Immature Grans 0.05 10^3/uL (0.0-0.06); HCT 52.8 % (40.0-50.0); HGB 17.3 g/dL (13.5-17.5); Immature Grans % 0.6 %; MCH 30.3 pg (27.0-33.0); MCHC 32.8 % (32.0-36.0); MCV 93 fL (80-95); MPV 11.6 fL (8.0-11.0); Platelet Count 254 10^3/uL (130-400); RBC 5.71 10^6/uL (4.36-5.78); RDW 12.9 % (11.8-14.1); RDW-SD 43.6 fL; WBC 8.85 10^3/uL (4.4-10.8)
== END 2025-03-06 16:18 | disposition home or self-care (01) ==
LOC: LBN 16:17
PROVIDERS: PCP Family Medicine Geriatric Medicine; Visit Provider Nurse Practitioner Adult Health
DX: F25.0 Schizoaffective disorder, bipolar type (principal)
CPT/HCPCS: 85025

== ENCOUNTER 2025-04-09 10:24 | Outpatient (REF) | payer MEDICARE, MEDICAID, SELFPAY ==
[2025-04-11 20:23] LABS: Clozapine+Norclozapine Total 293 ng/mL
== END 2025-04-09 10:25 | disposition home or self-care (01) ==
LOC: LBN 10:24
PROVIDERS: PCP Family Medicine Geriatric Medicine; Visit Provider Nurse Practitioner Adult Health
DX: E25.0 Congenital adrenogenital disorders associated with enzyme deficiency (principal)
CPT/HCPCS: 80159

== ENCOUNTER 2025-04-17 16:49 | Outpatient (REF) | payer MEDICARE, MEDICAID, SELFPAY ==
[2025-04-17 19:55] LABS: COVID-19 PCR Negative (Negative); RSV PCR Negative (Negative)
== END 2025-04-17 16:50 | disposition home or self-care (01) ==
LOC: LBN 16:49
PROVIDERS: PCP Family Medicine Geriatric Medicine; Visit Provider Nurse Practitioner Adult Health
DX: J06.9 Acute upper respiratory infection, unspecified (principal)
CPT/HCPCS: 87637

== ENCOUNTER 2025-05-09 11:28 | Outpatient (REF) | payer MEDICARE, MEDICAID, SELFPAY ==
[2025-05-12 21:33] LABS: Clozapine+Norclozapine Total 468 ng/mL
== END 2025-05-09 11:29 | disposition home or self-care (01) ==
LOC: LBN 11:28
PROVIDERS: PCP Family Medicine Geriatric Medicine; Visit Provider Nurse Practitioner Adult Health
DX: I48.20 Chronic atrial fibrillation, unspecified (principal)
CPT/HCPCS: 80159

== ENCOUNTER 2025-05-24 18:02 | Outpatient (REF) | payer MEDICARE, MEDICAID, SELFPAY ==
[2025-05-24 19:03] LABS: Magnesium 1.9 mg/dL (1.6-2.6)
[2025-05-24 19:04] LABS: Anion Gap 11.5 mmol/L (3-11); BUN 17 mg/dL (9-23); CO2 28.5 mmol/L (20.0-31.0); Calcium 9.7 mg/dL (8.3-10.6); Chloride 106 mmol/L (98-107); Glucose 90 mg/dL (74-106); Potassium 4.2 mmol/L (3.5-5.1); Sodium 146 mmol/L (136-145)
== END 2025-05-24 18:03 | disposition home or self-care (01) ==
LOC: LBN 18:02
PROVIDERS: PCP Family Medicine Geriatric Medicine; Visit Provider Nurse Practitioner Adult Health
DX: E83.42 Hypomagnesemia (principal)
CPT/HCPCS: 80048; 83735